=== PATIENT | male | born 1945 | race Caucasian/White ===

== ENCOUNTER 2022-02-20 14:19 | Emergency (ER) | payer MEDICARE, OTHER, SELFPAY ==
[2022-02-20 14:34] VITALS: BP 99/64; PULSE 76; RESP 18; TEMP 36.4; O2SAT 98; BMI 22.4
--- NOTE | 2022-02-20 14:47 | CRLHL7_ITS ---
For Patients: As a result of the Century Cures Act, medical imaging exams and procedure reports are released immediately into your electronic medical record. You may view this report before your referring provider. If you have questions, please contact your health care provider. INDICATION: Painful reddened left abdominal lump. TECHNIQUE: Hammer-scale and color-flow Doppler ultrasound examination of the left abdominal lump. COMPARISON: None. FINDINGS: A tubular structure in the region of the left abdominal lump is demonstrated. This has an overall length of roughly 5 cm and measures up to roughly 1 cm in diameter. A section of this structure medially demonstrates flow on color flow Doppler examination, indicating a venous structure. The lateral section demonstrates no flow and is suspect an acutely thrombosed component. IMPRESSION: Apparent venous structure in the abdominal wall with thrombus. Question this patient has poor venous hypertension with abdominal wall venous shunting. Dictated by Sinan Cardenas MD @ 02/20/2022 4:23:52 PM (Electronically Signed)
--- NOTE | 2022-02-20 15:22 | ED_ITS ---
HPI - General Adult General Chief complaint: Skin/Abscess/Foreign Body Stated complaint: Red madhu on stomach that causes pain Time Seen by Provider: 02/20/22 14:24 Source: patient Mode of arrival: ambulatory Limitations: no limitations History of Present Illness HPI narrative: 77-year-old male coming in today concerned about a lesion on his abdominal wall. He noticed it there about 1-2 weeks ago. In the last couple days it has been hurting him when he touches it. He denies any systemic symptoms. He denies any trauma to the abdominal wall. Past medical history is significant for paroxysmal atrial fibrillation, anxiety, restless leg syndrome, normal sick anemia. Past surgical history includes AAA repair, cholecystectomy, appendectomy cardiac ablation for atrial fibrillation, back surgery. Related Data Home Medications Medication Instructions Recorded Confirmed dofetilide 250 mcg capsule mcg 02/20/22 ferrous gluconate 324 mg (38 mg mg 02/20/22 iron) tablet furosemide 40 mg tablet mg 02/20/22 metoprolol succinate 25 mg mg PO 02/20/22 tablet,extended release 24 hr metoprolol tartrate 25 mg tablet mg 02/20/22 mirtazapine 7.5 mg tablet mg 02/20/22 pregabalin 100 mg capsule mg 02/20/22 pregabalin 25 mg capsule mg 02/20/22 sennosides 8.6 mg tablet (senna) mg 02/20/22 sumatriptan succinate 50 mg tablet mg PO 02/20/22 tramadol 50 mg tablet mg 02/20/22 warfarin 1 mg tablet mg 02/20/22 Allergies Allergy/AdvReac Type Severity Reaction Status Date / Time dronedarone [From Multaq] Allergy Verified 02/20/22 17:21 meperidine [From Demerol] Allergy Verified 02/20/22 17:21 morphine Allergy Verified 02/20/22 17:21 promethazine [From Phenergan] Allergy Verified 02/20/22 17:21 Review of Systems Status of ROS: Reports: 10 or more systems reviewed and unremarkable except as noted in History and below PFSH PFS Social History Smoking Status: Never smoker Do you use any of these nicotine containing products: None Second hand tobacco smoke exposure: No How often do you have a drink containing alcohol: never How often do you have six or more drinks on one occasion: Never AUDIT-C Alcohol total score: 0 Non-prescribed substance use: denies use service: No Exam Narrative: Exam Narrative: Thin, well-developed elderly patient in no acute distress. Alert and oriented. Answers questions appropriately. Mood and affect are appropriate. Thoughts are goal oriented and rational. No tangential or magical thinking noted. Patient speaks in full sentences without needing to catch their breath. HEENT: Normocephalic atraumatic. Pupils are equally round reactive to light. Extraocular muscles are intact. Conjunctivae are moist without any icterus noted. Abdomen: Soft and nontender nondistended with normal bowel sounds. No guarding or rebound. Patient has a small area of erythema on the anterior abdominal wall without any broken skin. Underneath it he has a area of induration and firmness that is about the size of a golf ball, slightly smaller. This area is tender to palpation. Extremities: Bilateral lower extremities are without edema. Normal DP and PT pulses. Skin: Well perfused without any obvious rashes. Const: Vital Signs, click to edit/add: Vital Signs - 24 hr 02/20/22 14:34 02/20/22 16:51 Temperature 97.5 F L Pulse Rate [Right Pulse Oximeter] 76 75 Respiratory Rate 18 18 Blood Pressure [Ri ght Upper Arm] 99/64 108/69 Pulse Oximetry 98 97 Oxygen Delivery Me thod Room Air Room Air Course Course Hospital Course: Proceeded with an ultrasound of the area in question, radiologic over-read commented on a potential venous structure and blood clot. Because of this we added some lab work which was unremarkable and proceed with an chest, abdominal and pelvis CT scan which showed Epicardial pacer leads leading to a small probable area of abscess. I did consult with our surgeon, , who recommended oral antibiotics and follow up with a cardio vascular surgeon. Vital Signs Vital signs: Initial Vital Signs Temperature 97.5 F L 02/20/22 14:34 Temperature Source Temporal Artery Scan 02/20/22 14:34 Pulse Rate 76 02/20/22 14:34 Respiratory Rate 18 02/20/22 14:34 Blood Pressure 99/64 02/20/22 14:34 Blood Pressure Mean 75 02/20/22 14:34 Blood Pressure Position Sitting 02/20/22 14:34 Pulse Oximetry 98 02/20/22 14:34 Oxygen Delivery Method 02/20/22 14:34 Vital Signs Temperature 97.5 F L 02/20/22 14:34 Pulse Rate 76 02/20/22 14:34 Respiratory Rate 18 02/20/22 14:34 Blood Pressure 99/64 02/20/22 14:34 Pulse Oximetry 98 02/20/22 14:34 Oxygen Delivery Method 02/20/22 14:34 Temperature 97.5 F L 02/20/22 14:34 Pulse Rate 75 02/20/22 16:51 Respiratory Rate 18 02/20/22 16:51 Blood Pressure 108/69 02/20/22 16:51 Pulse Oximetry 97 02/20/22 16:51 Oxygen Delivery Method 02/20/22 16:51 Medical Decision Making MDM Narrative Medical decision making narrative: Abdominal wall abscess, epicardial pacer leads still in placed postoperatively. Patient will be placed on Augmentin. Recommend follow-up with his cardiovascular surgeon. Medical Records Medical records reviewed: Yes I reviewed the patient's medical records Lab Data Lab results reviewed: Yes I reviewed the patient's lab results Labs: Lab Results 02/20/22 02/20/22 02/20/22 Range/Units 16:47 16:47 16:47 WBC 5.76 (4.50-11.00) K/uL RBC 4.48 (4.30-5.90) m/uL Hgb 13.4 L (13.5-17.5) gm/dL Hct 41.6 (37.0-53.0) % MCV 93 (80-100) fL MCH 30 (26-34) pg MCHC 32 (32-36) gm/dL RDW Coeff of Phyllis 13.0 (11.5-15.5) % Plt Count 184 (140-440) K/uL Neut % (Auto) 69.0 (42.0-72.0) % Lymph % (Auto) 21.0 (20-44) % Hopkins % (Auto) 7.6 (0.0-11.0) % Eos % (Auto) 2.1 (0.0-7.0) % Baso % (Auto) 0.3 (0.0-3.0) % Neut # (Auto) 3.97 (1.7-7.0) K/uL Lymph # (Auto) 1.21 (0.90-2.90) K/uL Hopkins # (Auto) 0.40 (0.00-0.90) K/UL Eos # (Auto) 0.12 (0.00-0.50) K/uL Baso # (Auto) 0.02 (0.00-0.30) K/uL Abs Immat Gran (auto) 0.00 (0.00-0.30) K/uL INR (0.91-1.10) D-Dimer Quant (PE/DVT) 0.49 (0.00-0.50) ug/ml Sodium 141 (135-149) mmol/L Potassium 4.2 (3.6-5.1) mmol/L Chloride 105 (96-114) mmol/L Carbon Dioxide 29 (20-32) mmol/L BUN 29 (7-30) mg/dL Creatinine 0.7 (0.5-1.5) mg/dL Estimated Creat Clear 66.53 Estimated GFR 95 ml/min Glucose 92 (60-115) mg/dL Calcium 9.1 (8.4-10.6) mg/dL Total Bilirubin 0.9 (0.1-1.5) mg/dL Direct Bilirubin 0.1 (0.0-0.5) mg/dL AST 30 (12-35) U/L ALT 17 (4-50) U/L Alkaline Phosphatase 76 (40-150) U/L C-Reactive Protein (0.5-1.0) mg/dL Total Protein 8.1 (6.0-8.3) g/dL Albumin 4.3 (3.3-5.0) g/dL 02/20/22 02/20/22 Range/Units 16:47 16:47 WBC (4.50-11.00) K/uL RBC (4.30-5.90) m/uL Hgb (13.5-17.5) gm/dL Hct (37.0-53.0) % MCV (80-100) fL MCH (26-34) pg MCHC (32-36) gm/dL RDW Coeff of Phyllis (11.5-15.5) % Plt Count (140-440) K/uL Neut % (Auto) (42.0-72.0) % Lymph % (Auto) (20-44) % Hopkins % (Auto) (0.0-11.0) % Eos % (Auto) (0.0-7.0) % Baso % (Auto) (0.0-3.0) % Neut # (Auto) (1.7-7.0) K/uL Lymph # (Auto) (0.90-2.90) K/uL Hopkins # (Auto) (0.00-0.90) K/UL Eos # (Auto) (0.00-0.50) K/uL Baso # (Auto) (0.00-0.30) K/uL Abs Immat Gran (auto) (0.00-0.30) K/uL INR 1.96 H (0.91-1.10) D-Dimer Quant (PE/DVT) (0.00-0.50) ug/ml Sodium (135-149) mmol/L Potassium (3.6-5.1) mmol/L Chloride (96-114) mmol/L Carbon Dioxide (20-32) mmol/L BUN (7-30) mg/dL Creatinine (0.5-1.5) mg/dL Estimated Creat Clear Estimated GFR ml/min Glucose (60-115) mg/dL Calcium (8.4-10.6) mg/dL Total Bilirubin (0.1-1.5) mg/dL Direct Bilirubin (0.0-0.5) mg/dL AST (12-35) U/L ALT (4-50) U/L Alkaline Phosphatase (40-150) U/L C-Reactive Protein 0.6 (0.5-1.0) mg/dL Total Protein (6.0-8.3) g/dL Albumin (3.3-5.0) g/dL Imaging Data CT Chest/Ab/Pelvis: Attestation: I have reviewed the pertinent imaging results. Radiologist's impression: Volumetric multidetector CT images of the chest, abdomen, and pelvis were obtained after the administration of intravenous contrast. 95 cc Isovue 370 low osmolar intravenous contrast Comparison: Limited abdominal ultrasound February 20, 2022 FINDINGS: CHEST The thoracic inlet is unremarkable. The thyroid gland is within normal limits. The thoracic aorta is nonaneurysmal. There is demonstration of epicardial pacer leads likely temporary pacer leads status post prior median sternotomy within the inferior epicardial space extending to the left upper quadrant subcutaneous soft tissues corresponding to the area of palpable concern with likely a small inflammatory phlegmon or abscess near the terminus of the wires for. There is no definite evidence of rim enhancing pericardial fluid to suggest pericarditis. There is again effacement of the cardiac structures secondary to a narrowed AP thoracic diameter. There is no filling defect to suggest pulmonary embolus. There is no mediastinal, hilar, or axillary adenopathy. There is mild central bronchial thickening with [id number] paper parenchymal scarring and pleural based calcifications seen in the right greater than left lung apices. There is dependent basilar atelectasis and parenchymal scarring again appreciated within the peripheral right lower lobe mildly increased from comparison. The thoracic osseus structures are intact without fracture, lytic, or blastic lesion. The thoracic vertebral body heights are grossly stable from comparison with moderate degenerative disc disease and endplate Schmorl`s defects. There is no significant spondylolisthesis or displaced fracture. ABDOMEN AND PELVIS The liver is normal in attenuation and size. The portal vein is patent. The spleen is normal in attenuation and size. There is prior cholecystectomy. There is no intrahepatic or common ductal dilatation. There is moderate chronic gastritis change. The pancreas is normal in enhancement without significant atrophy. The adrenal glands are unremarkable without evidence of adenoma. Renal parenchymal defects of the bilateral kidneys are appreciated commensurate with sequela of prior renal parenchymal injury. Cystic changes of the kidneys are seen. Nonobstructive calculi within the right collecting system. There is a moderate to severe diffuse amount of intracolonic stool. There is minimal distal colonic diverticulosis. There is prior appendectomy. The abdominal aorta is nonaneurysmal with moderate atherosclerotic calcification and tortuosity.. The remaining solid pelvic viscera are otherwise grossly unremarkable. There is no pathologically enlarged epigastric, mesenteric, retroperitoneal, or pelvic sidewall lymph node. The anterior abdominal wall is grossly intact without significant hernias. There is no free air or free fluid. Moderate degenerative changes of the bilateral hips and sacroiliac joints are appreciated. There is moderate to severe degenerative disc disease and moderate dextroscoliotic deformity of the AP alignment. Impression: 1. Demonstration of discontinuous epicardial pacer leads, likely temporary pacer leads, from previous median sternotomy and aortic surgery corresponding to the area of palpable concern with demonstration of likely a small abscess within the subcutaneous tissues along the cut ends of the leads seen on comparison ultrasound. This area is best appreciated on series 10, image 31 measuring 1.5 centimeters. No evidence of pericardial abscess or fluid collection tracking along the path of the leads. 2. Moderate to severe stool seen throughout the colon commensurate with constipation changes. Nephrolithiasis. Chronic gastritis changes. Prior cholecystectomy with reservoir changes of the bile ducts. 3. Otherwise, no acute intra-abdominal abnormality is appreciated. Moderate chronic interstitial changes within the lungs with minimal bibasilar atelectasis and parenchymal scar. No evidence of pulmonary embolus. US - abdomen: Attestation: I have reviewed the pertinent imaging results. Radiologist's impression: TECHNIQUE: Hammer-scale and color-flow Doppler ultrasound examination of the left abdominal lump. COMPARISON: None. FINDINGS: A tubular structure in the region of the left abdominal lump is demonstrated. This has an overall length of roughly 5 cm and measures up to roughly 1 cm in diameter. A section of this structure medially demonstrates flow on color flow Doppler examination, indicating a venous structure. The lateral section demonstrates no flow and is suspect an acutely thrombosed component. IMPRESSION: Apparent venous structure in the abdominal wall with thrombus. Question this patient has poor venous hypertension with abdominal wall venous shunting. Discharge Plan Discharge Clinical Impression: Abdominal wall abscess Patient Disposition: Home, Self-Care Condition: Stable Additional Instructions: Take all antibiotics as prescribed. Okay to use Tylenol as needed for discomfort. You will need to follow-up with your cardiovascular surgeon to discuss your epicardial leads which are still in place and appear to be the cause of the infection. Antibiotic sent to [facility]. Prescriptions: No Action furosemide 40 mg tablet Label Comments: TAKE 1 TABLET (40 MG) BY MOUTH EVERY MORNING. sennosides [senna] 8.6 mg tablet Label Comments: TAKE 1 TABLET BY MOUTH 2 TIMES DAILY IF NEEDED FOR CONSTIPATION. dofetilide 250 mcg capsule sumatriptan succinate 50 mg tablet PO Label Comments: TAKE 1 TABLET (50 MG) BY MOUTH EVERY 2 HOURS IF NEEDED FOR MIGRAINE. GIVE AT MINIMUM 2HRS APART. MAX DOSE: 200MG PER 24HRS. tramadol 50 mg tablet Label Comments: take 1 tab qhs as needed for RLS rescue therapy. Not to exceed more than 2 nights/week metoprolol succinate 25 mg tablet extended release 24 hr PO warfarin 1 mg tablet Label Comments: TAKE BY MOUTH 2 MG (1 MG X 2) EVERY SUN; 3 MG (1 MG X 3) ALL OTHER DAYS OR DIRECTED metoprolol tartrate 25 mg tablet mirtazapine 7.5 mg tablet pregabalin 25 mg capsule Label Comments: TAKE 1 CAP 3 TIMES PER DAILY. INCREASE TO 2 CAPS NIGHTTIME DOSING IF NEEDED AFTER 1 WEEK (TOTAL DOSING 125 MG AM AND AFTERNOON 150MG AT BEDTIME) pregabalin 100 mg capsule Label Comments: TAKE 1 CAPSULE BY MOUTH THREE TIMES A DAY ferrous gluconate 324 mg (38 mg iron) tablet Label Comments: TAKE 1 TABLET BY MOUTH ONCE DAILY WITH A MEAL. Follow Up/Referrals: Kiersten Fitch MD [Primary Care Provider] - Stand Alone Forms: [facility] Inst[facility]
--- NOTE | 2022-02-20 16:44 | CRLHL7_ITS ---
For Patients: As a result of the Cures Act, medical imaging exams and procedure reports are released immediately into your electronic medical record. You may view this report before your referring provider. If you have questions, please contact your health care provider. Indication: Pulsatile abdominal mass, history of aortic surgery March 22, thrombus seen on abdominal wall ultrasound Technique: Volumetric multidetector CT images of the chest, abdomen, and pelvis were obtained after the administration of intravenous contrast. 95 cc Isovue 370 low osmolar intravenous contrast Comparison: Limited abdominal ultrasound February 20, 2022 FINDINGS: CHEST The thoracic inlet is unremarkable. The thyroid gland is within normal limits. The thoracic aorta is nonaneurysmal. There is demonstration of epicardial pacer leads likely temporary pacer leads status post prior median sternotomy within the inferior epicardial space extending to the left upper quadrant subcutaneous soft tissues corresponding to the area of palpable concern with likely a small inflammatory phlegmon or abscess near the terminus of the wires for. There is no definite evidence of rim enhancing pericardial fluid to suggest pericarditis. There is again effacement of the cardiac structures secondary to a narrowed AP thoracic diameter. There is no filling defect to suggest pulmonary embolus. There is no mediastinal, hilar, or axillary adenopathy. There is mild central bronchial thickening with [id number] paper parenchymal scarring and pleural based calcifications seen in the right greater than left lung apices. There is dependent basilar atelectasis and parenchymal scarring again appreciated within the peripheral right lower lobe mildly increased from comparison. The thoracic osseus structures are intact without fracture, lytic, or blastic lesion. The thoracic vertebral body heights are grossly stable from comparison with moderate degenerative disc disease and endplate Schmorl`s defects. There is no significant spondylolisthesis or displaced fracture. ABDOMEN AND PELVIS The liver is normal in attenuation and size. The portal vein is patent. The spleen is normal in attenuation and size. There is prior cholecystectomy. There is no intrahepatic or common ductal dilatation. There is moderate chronic gastritis change. The pancreas is normal in enhancement without significant atrophy. The adrenal glands are unremarkable without evidence of adenoma. Renal parenchymal defects of the bilateral kidneys are appreciated commensurate with sequela of prior renal parenchymal injury. Cystic changes of the kidneys are seen. Nonobstructive calculi within the right collecting system. There is a moderate to severe diffuse amount of intracolonic stool. There is minimal distal colonic diverticulosis. There is prior appendectomy. The abdominal aorta is nonaneurysmal with moderate atherosclerotic calcification and tortuosity.. The remaining solid pelvic viscera are otherwise grossly unremarkable. There is no pathologically enlarged epigastric, mesenteric, retroperitoneal, or pelvic sidewall lymph node. The anterior abdominal wall is grossly intact without significant hernias. There is no free air or free fluid. Moderate degenerative changes of the bilateral hips and sacroiliac joints are appreciated. There is moderate to severe degenerative disc disease and moderate dextroscoliotic deformity of the AP alignment. Impression: 1. Demonstration of discontinuous epicardial pacer leads, likely temporary pacer leads, from previous median sternotomy and aortic surgery corresponding to the area of palpable concern with demonstration of likely a small abscess within the subcutaneous tissues along the cut ends of the leads seen on comparison ultrasound. This area is best appreciated on series 10, image 31 measuring 1.5 centimeters. No evidence of pericardial abscess or fluid collection tracking along the path of the leads. 2. Moderate to severe stool seen throughout the colon commensurate with constipation changes. Nephrolithiasis. Chronic gastritis changes. Prior cholecystectomy with reservoir changes of the bile ducts. 3. Otherwise, no acute intra-abdominal abnormality is appreciated. Moderate chronic interstitial changes within the lungs with minimal bibasilar atelectasis and parenchymal scar. No evidence of pulmonary embolus. Please note that all CT scans at this facility use dose modulation, iterative reconstruction, and/or weight-based dosing when appropriate to reduce radiation dose to as low as reasonably achievable. Dictated by Derek Zambrano MD @ 02/20/2022 6:03:29 PM (Electronically Signed)
[2022-02-20 16:51] VITALS: BP 108/69; PULSE 75; RESP 18; O2SAT 97
[2022-02-20 16:52] LABS: Basophils Absolute Auto 0.02 K/uL (0.00-0.30); Basophils Percent Auto 0.3 % (0.0-3.0); Eosinophils Absolute Auto 0.12 K/uL (0.00-0.50); Eosinophils Percent Auto 2.1 % (0.0-7.0); Hematocrit 41.6 % (37.0-53.0); Hemoglobin* 13.4 gm/dL (13.5-17.5); Lymphocytes Absolute Auto 1.21 K/uL (0.90-2.90); Mean Corpuscular HGB Conc 32 gm/dL (32-36); Mean Corpuscular Hemoglobin 30 pg (26-34); Mean Corpuscular Volume 93 fL (80-100); Monocytes Percent Auto 7.6 % (0.0-11.0); Neutrophils Absolute Auto 3.97 K/uL (1.7-7.0); Platelet Count* 184 K/uL (140-440); Red Blood Count 4.48 m/uL (4.30-5.90); White Blood Count* 5.76 K/uL (4.50-11.00)
[2022-02-20 16:55] LABS: Slide Review Reflex No
[2022-02-20 17:05] LABS: Albumin* 4.3 g/dL (3.3-5.0); Chloride* 105 mmol/L (96-114)
[2022-02-20 17:06] LABS: Potassium* 4.2 mmol/L (3.6-5.1); Sodium* 141 mmol/L (135-149)
[2022-02-20 17:08] LABS: Alkaline Phosphatase* 76 U/L (40-150); Aspartate Amino Transferase* 30 U/L (12-35); Bilirubin Direct* 0.1 mg/dL (0.0-0.5); Bilirubin Total* 0.9 mg/dL (0.1-1.5); Blood Urea Nitrogen* 29 mg/dL (7-30); Carbon Dioxide* 29 mmol/L (20-32); Creatinine* 0.7 mg/dL (0.5-1.5); Est. Creatinine Clearance* 66.53; Estimated Glomerular Filt Rate 95 ml/min; Total Protein* 8.1 g/dL (6.0-8.3)
[2022-02-20 17:09] LABS: Alanine Aminotransferase* 17 U/L (4-50); Calcium* 9.1 mg/dL (8.4-10.6); Glucose* 92 mg/dL (60-115)
[2022-02-20 17:12] LABS: INR 1.96 (0.91-1.10); Prothrombin Time 22.7 Seconds
[2022-02-20 17:13] LABS: C Reactive Protein* 0.6 mg/dL (0.5-1.0); D Dimer Quantitative* 0.49 ug/ml (0.00-0.50)
== END 2022-02-20 18:51 | disposition home or self-care (01) ==
PROVIDERS: Emergency Provider Family Medicine; PCP Family Medicine
DX: L02.211 Cutaneous abscess of abdominal wall (principal)
CPT/HCPCS: 36415; 71260; 74177; 76705; 80048; 80076; 85025; 85379; 85610; 86140; 99284; 99285; Q9967

== ENCOUNTER 2022-03-05 02:02 | Emergency (ER) | payer MEDICARE, OTHER, SELFPAY ==
[2022-03-05 02:14] VITALS: BP 103/66; PULSE 81; RESP 16; TEMP 37.2; O2SAT 99; BMI 23.1
--- NOTE | 2022-03-05 02:34 | ED.GENADULT ---
HPI - General Adult General Date Seen: 03/05/22 Chief complaint: Laceration/Wound Stated complaint: Abdominal pain, skin wound, possibly infected Time Seen by Provider: 03/05/22 02:23 Source: patient Mode of arrival: ambulatory Limitations: no limitations History of Present Illness HPI narrative: Patient is a 77-year-old male with scheduled to have removal of pacemaker leads next week at [facility]. One of these leads has led to the formation of an abdominal wall abscess. He is on Augmentin and has had no fevers or chills. He has had worsening pain and called the triage nurse who told him to come to the emergency department. The area is more tender than it was a couple of days ago but it is not swollen. He describes ?electric shocks ?. He can knowledge is that he is anxious the might before he has the surgery because the surgeon told him that Quoc Glover bled to when he had this same procedure done. We discussed that if he had worsening swelling, drainage, fever that I would be concerned but he demonstrates no signs of worsening infection. He is only taking Tylenol for pain. No chest pain or shortness of breath. Related Data Home Medications Medication Instructions Recorded Confirmed dofetilide 250 mcg capsule mcg 02/20/22 ferrous gluconate 324 mg (38 mg mg 02/20/22 iron) tablet furosemide 40 mg tablet mg 02/20/22 metoprolol succinate 25 mg mg PO 02/20/22 tablet,extended release 24 hr metoprolol tartrate 25 mg tablet mg 02/20/22 mirtazapine 7.5 mg tablet mg 02/20/22 pregabalin 100 mg capsule mg 02/20/22 pregabalin 25 mg capsule mg 02/20/22 sennosides 8.6 mg tablet (senna) mg 02/20/22 sumatriptan succinate 50 mg tablet mg PO 02/20/22 tramadol 50 mg tablet mg 02/20/22 warfarin 1 mg tablet mg 02/20/22 Previous Rx's Medication Instructions Recorded amoxicillin 875 mg-potassium 1 tab PO BID #10 tabs 03/05/22 clavulanate 125 mg tablet oxycodone-acetaminophen 5 mg-325 1 - 2 tab PO Q4-6H PRN pain #14 03/05/22 mg tablet (Endocet) tabs Allergies Allergy/AdvReac Type Severity Reaction Status Date / Time Phenothiazines Allergy Severe Angioedema Verified 03/05/22 02:30 dronedarone [From Multaq] Allergy Verified 03/05/22 02:30 meperidine [From Demerol] Allergy Verified 03/05/22 02:30 morphine Allergy Verified 03/05/22 02:30 promethazine [From Phenergan] Allergy Verified 03/05/22 02:30 Review of Systems Status of ROS: Reports: 10 or more systems reviewed and unremarkable except as noted in History and below [facility] Medical History (Updated 03/05/22 @ 02:51 by Rashard Garcia MD) Anemia Anxiety Degenerative joint disease Hypertension Paroxysmal atrial fibrillation Restless leg Surgical History (Updated 03/05/22 @ 02:28 by Jean Pierre Rosales RN) History of appendectomy History of arthroscopic knee surgery History of back surgery History of cardiac radiofrequency ablation History of cholecystectomy S/P AAA repair Social History Smoking Status: Never smoker Do you use any of these nicotine containing products: None Second hand tobacco smoke exposure: No How often do you have a drink containing alcohol: never How often do you have six or more drinks on one occasion: Never AUDIT-C Alcohol total score: 0 Non-prescribed substance use: denies use service: No Exam Narrative: Exam Narrative: Subjective: The patient is in today [] Past Medical History, Past Surgical History, Medications, Allergies, Family History, Social History are reviewed and updated. Objective: Vitals noted. Conjunctiva clear. Neck is supple without adenopathy. Lungs are clear to auscultation in all newman. Heart is regular rate and rhythm without murmur. Abdomen is soft with normal bowel sounds and no organomegaly. No pitting peripheral edema. He has some dried debris over his mid abdomen. There is no surrounding redness or induration. The area is tender to the touch. There is no purulence expressible. No lymphangitic streaking. Const: Vital Signs, click to edit/add: Vital Signs - 24 hr 03/05/22 02:14 Temperature 98.9 F Pulse Rate [Left P ulse Oximeter] 81 Respiratory Rate 16 Blood Pressure [Le ft Upper Arm] 103/66 Pulse Oximetry 99 Oxygen Delivery Me thod Room Air Course Course Hospital Course: Patient was seen and examined. No indication for any diagnostic testing. He was reassured that he will not suffer overwhelming infection between now and his surgery in a couple of days. He is offered pain medication. He is worried that he might run out of his antibiotic and I did send in a few extra days of that as well. Vital Signs Vital signs: Initial Vital Signs Temperature 98.9 F 03/05/22 02:14 Temperature Source Temporal Artery Scan 03/05/22 02:14 Pulse Rate 81 03/05/22 02:14 Pulse Rhythm 03/05/22 02:14 Respiratory Rate 16 03/05/22 02:14 Blood Pressure 103/66 03/05/22 02:14 Blood Pressure Mean 78 03/05/22 02:14 Blood Pressure Position Sitting 03/05/22 02:14 Pulse Oximetry 99 03/05/22 02:14 Oxygen Delivery Method 03/05/22 02:14 Vital Signs Temperature 98.9 F 03/05/22 02:14 Pulse Rate 81 03/05/22 02:14 Respiratory Rate 16 03/05/22 02:14 Blood Pressure 103/66 03/05/22 02:14 Pulse Oximetry 99 03/05/22 02:14 Oxygen Delivery Method 03/05/22 02:14 Temperature 98.9 F 03/05/22 02:14 Pulse Rate 81 03/05/22 02:14 Respiratory Rate 16 03/05/22 02:14 Blood Pressure 103/66 03/05/22 02:14 Pulse Oximetry 99 03/05/22 02:14 Oxygen Delivery Method 03/05/22 02:14 Discharge Plan Discharge Clinical Impression: Abdominal wall abscess Patient Disposition: Home, Self-Care Condition: Stable Additional Instructions: Continue Augmentin twice a day until surgery. Hot packs to the area. Percocet 1-2 every 4-6 hours as needed for pain. Prescriptions: New amoxicillin-pot clavulanate 875-125 mg tablet 1 tab PO BID Qty: 10 0RF oxycodone-acetaminophen [Endocet] 5-325 mg tablet 1 - 2 tab PO Q4-6H PRN (Reason: pain) Qty: 14 0RF No Action furosemide 40 mg tablet Label Comments: TAKE 1 TABLET (40 MG) BY MOUTH EVERY MORNING. sennosides [senna] 8.6 mg tablet Label Comments: TAKE 1 TABLET BY MOUTH 2 TIMES DAILY IF NEEDED FOR CONSTIPATION. dofetilide 250 mcg capsule sumatriptan succinate 50 mg tablet PO Label Comments: TAKE 1 TABLET (50 MG) BY MOUTH EVERY 2 HOURS IF NEEDED FOR MIGRAINE. GIVE AT MINIMUM 2HRS APART. MAX DOSE: 200MG PER 24HRS. tramadol 50 mg tablet Label Comments: take 1 tab qhs as needed for RLS rescue therapy. Not to exceed more than 2 nights/week metoprolol succinate 25 mg tablet extended release 24 hr PO warfarin 1 mg tablet Label Comments: TAKE BY MOUTH 2 MG (1 MG X 2) EVERY SUN; 3 MG (1 MG X 3) ALL OTHER DAYS OR DIRECTED metoprolol tartrate 25 mg tablet mirtazapine 7.5 mg tablet pregabalin 25 mg capsule Label Comments: TAKE 1 CAP 3 TIMES PER DAILY. INCREASE TO 2 CAPS NIGHTTIME DOSING IF NEEDED AFTER 1 WEEK (TOTAL DOSING 125 MG AM AND AFTERNOON 150MG AT BEDTIME) pregabalin 100 mg capsule Label Comments: TAKE 1 CAPSULE BY MOUTH THREE TIMES A DAY ferrous gluconate 324 mg (38 mg iron) tablet Label Comments: TAKE 1 TABLET BY MOUTH ONCE DAILY WITH A MEAL. Follow Up/Referrals: Kiersten Fitch MD [Primary Care Provider] - Stand Alone Forms: [facility] Info Inst[facility]
--- OUTSIDE RECORDS SUMMARY | 2022-03-05 03:05 | XMS_ITS | Encounter Summary ---
:1945 Author Organization [facility] Address [address] [place] [address] Care Team Providers Name Role Phone Unavailable Primary Care Provider Unavailable Encounter Details Date Type Department Care Team Description 11/28/2000 Hospital Encounter HX [facility] INTERNMED Provider, Fl vivienne Social History Tobacco Use Types Packs/Day Years Used Date Smoking Tobacco: Never Assessed Alcohol Habits Answer Date Recorded How often do you have a drink containing alcohol? Never 08/31/2021 How many drinks containing alcohol do you have on a typical Not asked day when you are drinking? How often do you have six or more drinks on one occasion? No t asked Social Isolation Answer Date Recorded In a typical week, how many times do you More than three scot es a week 08/31/2021 talk on the phone with family, friends, or neighbors? How often do you get together with friends Once a week 08/31/2021 or relatives? How often do you attend advent or Patient refused 2021 yarsanism services? Do you belong to any clubs or No 08/31/2021 organizations such as advent groups, unions, fraternal or athletic groups, or school groups? How often do you attend meetings of the Never 08/31/2021 clubs or organizations you belong to? Are you now , , , 08/31/2021 , never or living with a partner? Physical Activity Answer Date Recorded On average, how many days per week do you engage in moderate to 5 days 08/31/2021 strenuous exercise (like walking fast, running, jogging, dancing, swimming, biking, or other activities that cause a light or heavy sweat)? On average, how many minutes do you engage in exercise at th is 20 min 08/31/2021 level? Stress Answer Date Recorded Do you feel stress - tense, restless, nervous, or Only a lit tle 08/31/2021 anxious, or unable to sleep at night because your mind is troubled all the time - these days? Financial Resource Strain Answer Date Recorded How hard is it for you to pay for the very basics like food, Very hard 08/31/2021 housing, medical care, and heating? Intimate Partner Violence Answer Date Recorded Within the last year, have you been afraid of your partner o r No 08/31/2021 ex-partner? Within the last year, have you been humiliated or emotionall y No 08/31/2021 abused in other ways by your partner or ex-partner? Within the last year, have you been kicked, hit, slapped, or No 08/31/2021 otherwise physically hurt by your partner or ex-partner? Within the last year, have you been raped or forced to have any No 08/31/2021 kind of sexual activity by your partner or ex-partner? Food Insecurity Answer Date Recorded Within the past 12 months, you worried that your food Someti mes true 08/31/2021 would run out before you got money to buy more. Within the past 12 months, the food you bought just Sometime s true 08/31/2021 didn't last and you didn't have money to get more. Transportation Needs Answer Date Recorded In the past 12 months, has lack of transportation kept you f rom No 08/31/2021 medical appointments or from getting medications? In the past 12 months, has lack of transportation kept you f rom No 08/31/2021 meetings, work, or getting things needed for daily living? Housing Stability Answer Date Recorded In the last 12 months, was there a time when you were Patien t refused 08/31/2021 not able to pay the mortgage or rent on time? In the last 12 months, how many places have you lived? [id number] 08/31/2021 In the last 12 months, was there a time when you did No 08/31/2021 not [address] to sleep or slept in a long term (including now)? Sex Assigned at Date Recorded Not on file documented as of this encounter Plan of Treatment Not on filedocumented as of this encounter Visit Diagnoses Not on filedocumented in this encounter
--- OUTSIDE RECORDS SUMMARY | 2022-03-05 03:05 | XMS_ITS | Clinical Summary ---
:1945 Author Organization [facility] Address [address] [place] [address] Care Team Providers Name Role Phone Elsewhere, Pcp Primary Care Provider Unavailable Source Comments Patient records contain information from all sites at [facility]. For routine questions regarding patient records, call [phone] during business hours, M-F 8:00 AM - 5:00 PM Central Time. Record requests for emergency care only can be directed to [phone] at any time.[facility] Allergies Active Allergy Reactions Severity Noted Date Comments Dronedarone Other (see comments), 04/29/2009 SHORT OF BREATH, Shortness of breath NERVOUS, TWITCHY Meperidine Angioedema, Shortness of High 07/08/2006 Fac ial swelling, after breath, Edema, hypo with Phe nergan Palpitations GIVEN WITH PHEN ERGAN Morphine GI intolerance, Nausea And 06/20/2007 V OMITING WITH ANY Vomiting MOVEMENT Phenothiazines Angioedema, Shortness of High 07/08/2006 F acial swelling, after breath, Edema, hypo with Dem rayne Palpitations GIVEN WITH EDWIGE ROL Pollen Extracts Other (see comments) 04/01/2016 Sertraline Nausea Only 03/07/2017 Medications Medication Sig Dispensed Refills Start Date End Date Status digestive enzymes Take 1 capsule 0 Active capsule by mouth. acetaminophen (TYLENOL) Take 500-1,000 0 Active 500 mg tablet mg by mouth. ascorbic acid, vitamin Take 1 tablet by 0 04/17/2020 Active C, (VITAMIN C) 1,000 mg mouth daily. tablet aspirin 81 mg chewable Chew 81 mg. 0 04/15/2021 Active tablet cholecalciferol Take 2 capsules 0 11/17/2011 Active (VITAMIN D3) 50 mcg by mouth daily. (2,000 Unit) capsule dofetilide (TIKOSYN) 0 08/26/2021 Active 250 mcg capsule furosemide (LASIX) 40 Take 40 mg by 0 07/13/2021 Active mg tablet mouth 2 (two) times a day. metoprolol succinate Take 50 mg by 0 06/11/2021 Active (TOPROL-XL) 50 mg 24 hr mouth every tablet evening. sennosides (SENOKOT) Take by mouth. 0 08/03/2021 Active 8.6 mg tablet SUMAtriptan (IMITREX) Take 100 mg by 0 Active 50 mg tablet mouth at bedtime as needed. warfarin (COUMADIN) 1 TAKE 2 TABLETS 0 08/03/2021 Active mg tablet BY MOUTH TUESDAY, TUESDAY, TUESDAY AND 1 TABLET ALL OTHER DAYS OF THE WEEK. zinc gluconate 100 mg Take 50 mg by 0 12/22/2020 Active tablet mouth. gabapentin (NEURONTIN) Take 600 qam, 405 tablet 1 08/31/2021 Active 600 mg tablet 600 qnoon and 900 qhs x 3 days, then 900 qam, 600 qnoon and 900 qhs x 3 days, then 900 mg tid Active Problems No known active problems Immunizations Name Administration Dates Next Due Influenza TIV (IM) 04/05/2013 Influenza, Injectable, Quadrivalent 01/16/2017 Influenza, Seasonal, Injectable 04/05/2013 Influenza, Unspecified 02/16/2018, 04/05/2013 PCV13 01/20/2015 PPSV23 04/05/2013, 06/02/2012 Td (Adult), adsorbed 05/06/2004 Td, (Adult) Unspecified 01/30/2005 Tdap 06/16/2018 influenza high dose (65 years or 02/16/2018, 01/27/2017, , older) (PF) 01/30/2014 influenza vaccine QV(FLUBLOK) (18 01/24/2020 years or older) (PF) influenza vaccine quad 02/26/2019, 01/23/2016 (FLUZONE/FLUARIX) (6 months and older)(PF) Family History Medical History Relation Name Comments Coronary artery disease Brother tony singer Relation Name Status Comments Brother tony singer Social History Tobacco Use Types Packs/Day Years Used Date Smoking Tobacco: Former Cigarettes Quit : 09/09/1994 Alcohol Use Standard Drinks/Week Comments Not Currently 0 (1 standard drink = 0.6 oz pure alcoho l) Alcohol Habits Answer Date Recorded How often [...] or relatives? How often do you attend tenriism or Patient refused 2021 episcopal services? Do you belong to any clubs or No 08/31/2021 organizations such as tenriism groups, unions, fraternal or athletic groups, or [...] months, how many places have you lived? [id number] 08/31/2021 In the last 12 months, was there a time when you did No 08/31/[address] to sleep or slept in a mcc (including now)? Education Answer Date Recorded What is the highest level of school you have completed or 12 th grade 08/31/2021 the highest degree you have received? Sex Assigned at Date Recorded Not on file Last Filed Vital Signs Vital Sign Reading Time Taken Comments Blood Pressure 104/66 08/31/2021 7:42 AM CDT Pulse 73 08/31/2021 7:42 AM CDT Temperature 36.1 ??C (96.9 ??F) 08/31/2021 7:42 AM CDT Respiratory Rate 18 04/01/2016 11:15 PM WATER QUALITY SPECIALIST Oxygen Saturation 99% 08/31/2021 7:42 AM CDT Inhaled Oxygen Concentration - - Weight 73.5 kg (162 lb 0.6 oz) 08/31/2021 7:42 AM CDT Height 184 cm (6' 0.44) 08/31/2021 7:42 AM CDT Body Mass Index 21.71 08/31/2021 7:42 AM CDT Plan of Treatment Health Maintenance Due Date Last Done Comments Hepatitis C Screening 1945 Zoster Vaccines (1 of 2) 01/13/1996 COVID-19 Vaccine (2 - Pfizer 07/15/2020 06/24/2020 series) Influenza Vaccine (#1) 2022 01/24/2020, 02/26/2019, 02/16/2018, Additional history exists Creatinine Level 07/09/2022 07/09/2021, 04/14/2021, 04/12/2021, Additional history exists Potassium Level 07/09/2022 07/09/2021, 04/22/2021, 04/14/2021, Additional history exists Sodium Level 07/09/2022 07/09/2021, 04/26/2021, 04/14/2021, Additional history exists DTaP,Tdap,and Td Vaccines (2 - Td 06/16/2028 06/16/2018, , or Tdap) 05/06/2004 Pneumococcal vaccine (65+ years) Completed 01/20/2015, 08/2012, 06/02/2012 Depression Screening (Annual Completed 08/31/2021 PHQ-2) Fall Risk Screen (Annual) Completed 08/31/2021 Insurance Payer Benefit Plan / Subscriber ID Effective Dates Phone Addre ss Type Group MEDICARE MEDICARE A AND [id number] 2010-Presen [address] Medicare [place] [phone] MEDICA MEDICA CHOICE [id number] 2021-Presen [address] [address] Medicaid [place] [address] [place] [address] Care Teams Clinical Allergist Relationship Specialty Start Date End Date Elsewhere, Pcp PCP - General Internal Medicine 08/31/21
--- OUTSIDE RECORDS SUMMARY | 2022-03-05 03:05 | XMS_ITS | Encounter Summary ---
:1945 Author Organization [facility] Address [address] [place] [address] Care Team Providers Name Role Phone Elsewhere, Pcp Primary Care Provider Unavailable Encounter Details Date Type Department Care Team Description 08/31/2021 Hospital Encounter Department of [facility], Amy gill [facility] Laboratory Medicine [facility] in [place], [address] [place], [place] [address] [address] [place], [place] [phone] (Work) [phone] Social History Tobacco Use Types Packs/Day Years [...] or relatives? How often do you attend caodaism or Patient refused 2021 evangelical services? Do you belong to any clubs or No 08/31/2021 organizations such as caodaism groups, unions, fraternal or athletic groups, or [...] months, how many places have you lived? [id number] 08/31/2021 In the last 12 months, was there a time when you did No 08/31/[address] to sleep or slept in a fpc (including now)? Education Answer Date Recorded What is the highest level of school you have completed or 12 th grade 08/31/2021 the highest degree you have received? Sex Assigned at Date Recorded Not on file documented as of this encounter Medications at Time of Discharge Medication Sig Dispensed Refills Start Date End Date acetaminophen (TYLENOL) 500 Take 500-1,000 mg 0 mg tablet by mouth. ascorbic acid, vitamin C, Take 1 tablet by 0 04/01 (VITAMIN C) 1,000 mg tablet mouth daily. aspirin 81 mg chewable Chew 81 mg. 0 04/15/2021 tablet cholecalciferol (VITAMIN Take 2 capsules by 0 D3) 50 mcg (2,000 Unit) mouth daily. capsule digestive enzymes capsule Take 1 capsule by 0 mouth. dofetilide (TIKOSYN) 250 0 08/26/2021 mcg capsule furosemide (LASIX) 40 mg Take 40 mg by mouth 0 tablet 2 (two) times a day. gabapentin (NEURONTIN) 600 Take 600 qam, 600 405 tablet 1 mg tablet qnoon and 900 qhs x 3 days, then 900 qam, 600 qnoon and 900 qhs x 3 days, then 900 mg tid metoprolol succinate Take 50 mg by mouth 0 2021 (TOPROL-XL) 50 mg 24 hr every evening. tablet sennosides (SENOKOT) 8.6 mg Take by mouth. 0 04/0 07/2021 tablet SUMAtriptan (IMITREX) 50 mg Take 100 mg by 0 tablet mouth at bedtime as needed. warfarin (COUMADIN) 1 mg TAKE 2 TABLETS BY 0 07/2021 tablet MOUTH TUESDAY, TUESDAY, TUESDAY AND 1 TABLET ALL OTHER DAYS OF THE WEEK. zinc gluconate 100 mg Take 50 mg by 0 12/22/2020 tablet mouth. documented as of this encounter Plan of Treatment Not on filedocumented as of this encounter Procedures Procedure Name Priority Date/Time Associated Diagnosis Comme nts FERRITIN, S Routine 08/31/2021 9:05 AM Restless Leg Syndrome Results for this CDT procedure are i n the results section . documented in this encounter Results Ferritin (08/31/2021 9:05 AM CDT) P athologist Signature Ferritin, S 56 31 - 409 08/31/2021 OW[place] mcg/L 10:24 AM CDT Comment: Biotin has been identified by the michaela moran as a potential interfering substance. ??Higher concentr ations of biotin may be found in multivitamins, hair/nail supple ments, and workout supplements. ??If the result does not ma [facility] clinical observations, repeat testing after patient refrains fr om the use of supplements for at least 12 hours. Specimen Anatomical Collection Method Collection Time Receive d Time (Source) Location / / Volume Laterality Blood (Blood, 08/31/2021 9:05 AM 09/01/19 9:15 Venous) CDT AM CDT Amy Linares M.D. LAB BLOOD ADD-ON Performing Organization Address City/State/ZIP Code Phon e Number [facility] [address] [place] [address] [place] [address] System in [place] [address] documented in this encounter Visit Diagnoses Diagnosis Restless Leg Syndrome documented in this encounter Care Teams Street Flusher Driver Relationship Specialty Start Date End Date Elsewhere, Pcp PCP - General Internal Medicine 08/31/21 documented as of this encounter
--- OUTSIDE RECORDS SUMMARY | 2022-03-05 03:05 | XMS_ITS | Encounter Summary ---
:1945 Author Organization [facility] Address [address] [place] [address] Care Team Providers Name Role Phone Aravind Decker MD Primary Care Provider Reason for Visit Procedure/Equipment (Routine) - Closed Specialty Diagnoses / Procedures Referred By Contact Refer red To Contact Procedures Jessica Easton MD CT Angio Chest W IV Cont PE [address] [place] [address] Referral ID Status Reason Start Date Expiration Date Visits Requ ested Visits Authorized [id number] Closed 04/20/2021 07/20/2022 1 1 Encounter Details Date Type Department Care Team Description 04/20/2021 Ancillary Procedure [facility] [address] [place], [place] [id number] Social History Tobacco Use Types Packs/Day Years Used Date Smoking Tobacco: Former Cigarettes Quit : 05/02/1965 Alcohol Use Standard Drinks/Week Comments No 0 (1 standard drink = 0.6 oz pure alcoho l) QUIT 14 YEARS AGO Sex Assigned at Date Recorded Not on file documented as of this encounter Plan of Treatment Not on filedocumented as of this encounter Procedures Procedure Name Priority Date/Time Associated Diagnosis Comme nts CT ANGIO CHEST W IV STAT 04/20/2021 4:05 AM Re sults for this CONT PE STUDY GARAGE HAND procedure are in the results section. documented in this encounter Visit Diagnoses Not on filedocumented in this encounter Administered Medications Inactive Administered Medications - up to 3 most recent administrations Medication Order MAR Action Action Date Dose Rate Site iohexol (OMNIPAQUE 350) 350 MG/ML Given 04/20/2021 4:06 AM GARAGE HAND 1 00 mL injection 100 mL 100 mL, Intravenous, ONCE (NON-SCHEDULED), Starting on Tue04/20/21 at 0406, Until Tue04/20/21 at 0406, For 1 dose documented in this encounter Care Teams Seat Joiner Relationship Specialty Start Date End Date Aravind Decker MD PCP - General Family Practice 01/14/14 [address] [place] [address] documented as of this encounter
--- OUTSIDE RECORDS SUMMARY | 2022-03-05 03:05 | XMS_ITS | Encounter Summary ---
:1945 [facility] Address [address] [place] [address] Care Team Providers Name Role Phone Aravind Decker MD Primary Care Provider Encounter Details Date Type Department Care Team Description 04/20/2021 Orders Only [facility] Jessica garcia MD Department [address] [address] [place], [place] [id number] [phone] Social History Tobacco Use Types Packs/Day Years [...] Diagnoses Not on filedocumented in this encounter Care Teams Government Auditor Relationship Specialty Start Date End Date Aravind Decker MD PCP - General Family Practice 01/14/14 [place] [address] documented as of this encounter
--- OUTSIDE RECORDS SUMMARY | 2022-03-05 03:05 | XMS_ITS | Encounter Summary ---
:1945 Author Organization [facility] Address [address] [place] [address] Care Team Providers Name Role Phone Elsewhere, Pcp Primary Care Provider Unavailable Reason for Visit Reason Comments Restless Legs Going on about 10 years off & on-more constant recently-can't sleep Appointment Request (Routine) - Closed Specialty Diagnoses / Procedures Referred By Contact Refer red To Contact Community Internal Medicine Referral ID Status Reason Start Date Expiration Date Visits Requ ested Visits Authorized [id number] Closed 08/18/2021 08/18/2022 1 1 Encounter Details Date Type Department Care Team Description 08/31/2021 Office Visit Department of Internal Amy Linares, Restless Leg Syndrome (Primary Dx); Medicine in [facility] [address] [place] [phone] Social History Tobacco Use Types Packs/Day Years [...] or relatives? How often do you attend nondenominational or Patient refused 2021 mandaen services? Do you belong to any clubs or No 08/31/2021 organizations such as nondenominational groups, unions, fraternal or athletic groups, or [...] months, how many places have you lived? [id number] 08/31/2021 In the last 12 months, was there a time when you did No 08/31/[address] to sleep or slept in a nursing home (including now)? Education Answer Date Recorded What is the highest level of school you have completed or 12 th grade 08/31/2021 the highest degree you have received? Sex Assigned at Date Recorded Not on file documented as of this encounter Last Filed Vital Signs Vital Sign Reading Time Taken Comments Blood Pressure 104/66 08/31/2021 7:42 AM CDT Pulse 73 08/31/2021 7:42 AM CDT Temperature 36.1 ??C (96.9 ??F) 08/31/2021 7:42 AM CDT Respiratory Rate - - Oxygen Saturation 99% 08/31/2021 7:42 AM CDT Inhaled Oxygen Concentration - - Weight 73.5 kg (162 lb 0.6 oz) 08/31/2021 7:42 AM CDT Height 184 cm (6' 0.44) 08/31/2021 7:42 AM CDT Body Mass Index 21.71 08/31/2021 7:42 AM CDT documented in this encounter Patient Instructions Patient InstructionsAmy Linares M.D. - 08/31/2021 8:00 AM CDT Today we will check your iron level to see if you would benefit from taking an iron supplement. Sometimes this can help patients with restless legs. You should try to cut back on caffeine because this can contribute to restless leg symptoms. I will have you gradually increase the gabapentin dose to see if that helps improve things. You willtake 600 mg in the morning, 600 mid day and then 900 mg at bedtime for 3 days, then increase to 900 mg in the morning, 600 mg mid day and 900 mg at bedtime for 3 days, then increase to 900 mg 3 times aday. If your symptoms do not improve with the higher dose of gabapentin, please contact your primary careprovider to get a neurology consultation. documented in this encounter Progress Notes Amy Linares M.D. - 08/31/2021 7:45 AM CDT SUBJECTIVE Mr. English is a 76 y.o. male who presents for evaluation of Restless Legs (Going on about 10 yearsoff & on-more constant recently-can't sleep). HISTORY OF PRESENT ILLNESS Cornell is a patient of Dr. Fitch at the [facility] and is seen today to discuss his restlessleg symptoms. His medical history is significant for congestive heart failure, atrial fibrillation with Maze procedure and ligation of left atrial appendage, ascending aortic aneurysm repair, hypertension and history of COVID-19 infection. He has been experiencing restless leg symptoms for the past 10years. At 1st these were only at night and now the symptoms even bother him during the day. He has been taking gabapentin for several months and recently increased the dose on his own to 600 mg 3 timesdaily. This has helped alleviate the symptoms somewhat but he still has fairly significant issues with the constant sensation that he needs to move his legs. He saw Neurology 5 or 6 years ago and says he was told he would have to live with these symptoms forever. He wonders if something more can be done about this. When he scheduled today's appointment he thought that this provider was an expert in restless legs and was disappointed to find out that this provider is a primary care internal medicine physician. Despite that he would like to get some advice about restless leg treatment. He also questions whether or not he is on the right medications for congestive heart failure. He sees a assistant news director regularly and also sees his primary care provider regularly. He is currently on Tikosyn due to the history of atrial fibrillation and takes furosemide and metoprolol for the congestive heart failure. He tries to be very careful about following a low-sodium diet. His endurance has increased over the last several months since he had his surgery and he feels much better. He has not had significant problems with dyspnea, orthopnea, PND or lower extremity edema. He likes to wear compression stockings to control the lower extremity edema and would like a prescription for a new pair today. REVIEW OF SYSTEMS Constitutional: Negative for fatigue and fever. Respiratory: Negative for dyspnea. Cardiovascular: Negative for chest pain, pressure or tightness and swelling in the legs or feet. The patient's allergies, current medications, problem list, and social history were reviewed and updated as appropriate. OBJECTIVE Vitals: 08/31/21 0742 BP: 104/66 Pulse: 73 Temp: 36.1 ??C SpO2: 99% BMI Readings from Last 3 Encounters: 08/31/21 21.71 kg/m?? Wt Readings from Last 3 Encounters: 08/31/21 73.5 kg PHYSICAL EXAM Physical Exam General: Alert, adult male with normal speech, in no acute distress. Skin: Warm and dry. No jaundice. Peripheral Vessels: Radial and dorsalis pedis pulses 2+ bilaterally. Heart: Regular rate and rhythm, normal S1 and S2. Lungs: Clear to auscultation bilaterally. No wheezes, crackles or rhonchi. Abdomen: Soft, active bowel sounds. Nondistended, nontender. Extremities: Warm. No cyanosis, clubbing or pitting edema. Gait: Normal. NEURO: Face symmetric and he moves all 4 extremities equally, no focal deficits. ASSESSMENT / PLAN #1 Restless Leg Syndrome He has fairly severe restless leg symptoms which have been somewhat controlled on the gabapentin. Recommend he try gradually titrating the gabapentin dose to 900 mg 3 times daily to see if that helps better control his symptoms. He will also undergo ferritin testing today. If this is less than 75 would recommend adding an iron supplement once daily. He should avoid caffeine. If his symptoms are not controlled with the higher dose gabapentin, he should contact his primary care provider about getting a referral to Neurology. #2 Edema He requests a prescription for new knee-high compression stockings today and this was provided for him. I spent a total of 36 minutes on the day of the visit. Amy Linares M.D. documented in this encounter Plan of Treatment Not on filedocumented as of this encounter Results Ferritin (08/31/2021 9:05 AM CDT) P athologist Signature Ferritin, S 56 31 - 409 08/31/2021 OWAT mcg/L 10:24 AM CDT Comment: Biotin has been identified by the michaela moran as a potential interfering substance. ??Higher concentr ations of biotin may be found in multivitamins, hair/nail supple ments, and workout supplements. ??If the result does not ma tch clinical observations, repeat testing after patient refrains fr om the use of supplements for at least 12 hours. Specimen Anatomical Collection Method Collection Time Receive d Time (Source) Location / / Volume Laterality Blood (Blood, 08/31/2021 9:05 AM 09/01/19 9:15 Venous) CDT AM CDT Amy Linares M.D. LAB BLOOD ADD-ON Performing Organization Address City/State/ZIP Code Phon e Number [facility] [address] [place] [address] [place] [address] System in [place] [address] documented in this encounter Visit Diagnoses Diagnosis Restless Leg Syndrome - Primary Edema documented in this encounter Care Teams Gas Blender Relationship Specialty Start Date End Date Elsewhere, Pcp PCP - General Internal Medicine 08/31/21 documented as of this encounter
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
--- OUTSIDE RECORDS SUMMARY | 2022-03-05 03:05 | XMS_ITS | Encounter Summary ---
:1945 Author Organization [employer] Address [address] [place] [address] Care Team Providers Name Role Phone Aravind Decker MD Primary Care Provider Reason for Visit Procedure/Equipment (Routine) - Closed Specialty Diagnoses / Procedures Referred By Contact Refer red To Contact Procedures Papito Jewell MD POC US BASIC CARDIAC [address] [place] [address] Referral ID Status Reason Start Date Expiration Date Visits Requ ested Visits Authorized [id number] Closed 04/15/2021 07/15/2022 1 1 Encounter Details Date Type Department Care Team Description 04/15/2021 Ancillary Procedure [address] [address] Social History Tobacco Use Types Packs/Day Years [...] Name Priority Date/Time Associated Diagnosis Comme nts POC US BASIC Routine 04/15/2021 6:42 AM Results f or this CARDIAC OPHTHALMIC LENS INSPECTOR procedure are i n the results section. documented in this encounter Results POC US BASIC CARDIAC (04/15/2021 6:42 AM OPHTHALMIC LENS INSPECTOR) Anatomical Region Laterality Modality Chest, Cardiac, US Cardiac Other Specimen (Source) Anatomical Location Collection Method / Collectio n Time Received Time / Laterality Volume Narrative 04/15/2021 6:59 AM OPHTHALMIC LENS INSPECTOR Papito Jewell MD ? 04/15/2021 ??7:00 AM [facility] Point of Care Ultrasound Interpretation POC US BASIC CARDIAC Date/Time: 04/15/2021 6:59 AM Performed by: Papito Jewell MD Authorized by: Papito Jewell MD Point of Care Ultrasound: Basic Cardiac Indications: Chest Pain Window: Adequate for full imaging and in terpretation Findings/ Impression (Within the context of limited gbuyp-iu-ycyr ultrasound): Good Global Function and No Pericardial Effusion Papito Jewell MD RAD POC US documented in this encounter Visit Diagnoses Not on filedocumented in this encounter Care Teams Coffee Break Attendant Relationship Specialty Start Date End Date Aravind Decker MD PCP - General Family Practice 01/14/14 [address] [place] [address] documented as of this encounter
--- OUTSIDE RECORDS SUMMARY | 2022-03-05 03:05 | XMS_ITS | Encounter Summary ---
:1945 Author Organization [email or web address] Address [address] [place] [address] Care Team Providers Name Role Phone Aravind Decker MD Primary Care Provider Reason for Visit Procedure/Equipment (Routine) - Closed Specialty Diagnoses / Procedures Referred By Contact Refer red To Contact Procedures Papito Jewell MD CT Angio Chest Abd Pel W/WO [address] [place] [address] Referral ID Status Reason Start Date Expiration Date Visits Requ ested Visits Authorized [id number] Closed 04/15/2021 07/15/2022 1 1 Encounter Details Date Type Department Care Team Description 04/15/2021 Ancillary Procedure [facility] [address] [place] [address] Social History Tobacco Use Types Packs/Day Years [...] encounter Procedures Procedure Name Priority Date/Time Associated Comments Diagnosis CT ANGIO CHEST ABD STAT 04/15/2021 7:16 AM Res ults for this PEL W/WO IV CONT CRITICAL CARE UNIT NURSE procedure a re in DISSECTION the results section. documented in this encounter Visit Diagnoses Not on filedocumented in this encounter Administered Medications Inactive Administered Medications - up to 3 most recent administrations Medication Order MAR Action Action Date Dose Rate Site iohexol (OMNIPAQUE 350) 350 MG/ML Given 04/15/2021 7:23 AM CRITICAL CARE UNIT NURSE 1 00 mL injection 100 mL 100 mL, Intravenous, ONCE (NON-SCHEDULED), Starting on Tue04/15/21 at 0722, Until Tue04/15/21 at 0723, For 1 dose documented in this encounter Care Teams Crew Leader Relationship Specialty Start Date End Date Aravind Decker MD PCP - General Family Practice 01/14/14 [address] [place] [address] documented as of this encounter
--- OUTSIDE RECORDS SUMMARY | 2022-03-05 03:05 | XMS_ITS | Encounter Summary ---
:1945 Author Organization [facility] Address [address] [place] [address] Care Team Providers Name Role Phone Aravind Decker MD Primary Care Provider Reason for Referral Procedure/Equipment (Routine) - Closed Specialty Diagnoses / Procedures Referred By Contact Refer red To Contact Procedures Jessica Easton MD CT Angio Chest W IV Cont PE [address] [place] [address] Referral ID Status Reason Start Date Expiration Date Visits Requ ested Visits Authorized [id number] Closed 04/20/2021 07/20/2022 1 1 [facility] Reason for Visit Reason Comments Chest Pain TACHYCARDIA Fever Encounter Details Date Type Department Care Team Description 04/20/2021 Emergency [facility] Jessica Easton MD SOB (shortness of Emergency Department [address] [facility]) (Primary Dx) [address] [place] [address] [place], [place] [id number] [phone] Social History Tobacco Use Types Packs/Day Years Used Date Smoking Tobacco: Former Cigarettes Quit : 05/02/1965 Alcohol Use Standard Drinks/Week Comments No 0 (1 standard drink = 0.6 oz pure alcoho l) QUIT 14 YEARS AGO Sex Assigned at Date Recorded Not on file documented as of this encounter Last Filed Vital Signs Vital Sign Reading Time Taken Comments Blood Pressure 110/57 04/20/2021 5:22 AM [facility] Pulse 96 04/20/2021 5:22 AM [facility] Temperature 36.9 ??C (98.5 ??F) 04/20/2021 2:42 AM [facility] Respiratory Rate 24 04/20/2021 5:22 AM [facility] Oxygen Saturation 96% 04/20/2021 5:22 AM [facility] Inhaled Oxygen Concentration - - Weight 73.5 kg (162 lb) 04/20/2021 2:42 AM [facility] Height 182.9 cm (6') 04/20/2021 2:42 AM [facility] Body Mass Index 21.97 04/20/2021 2:42 AM [facility] documented in this encounter Discharge Instructions Discharge InstructionsJessica Cabrera MD - 04/20/2021 5:02 AM CST Start taking the antibiotics for the prescribed time. Do not stop early. Follow up with your surgical/heart team with an update on your status in the morning. The antibiotics that are being prescribed today are less likely to affect your warfarin but still can, as any antibiotic could. So you need to make sure that you follow-up with your anticoagulation clinic to make sure that your warfarin is being dosed appropriately. Do not stop taking his medication just because it can affect your warfarin. The anticoagulation clinic will help to adjust your warfarindosing appropriately so that you can take the full course of your medications. [facility]ER AttachmentsThe following attachments cannot be sent through Care Everywhere.SOB (Shortness of Breath) (Welsh)Pneumonia (Welsh)documented in this encounter Medications at Time of Discharge Medication Sig Dispensed Refills Start Date End Date ATENolol (AKA TENORMIN) Take 25 mg by mouth 0 25 MG tabletIndications: every morning. Hypertension, Indications: High Blood Supraventricular Cardiac Pressure, Arrhythmia Supraventricular Cardiac Arrhythmia cholecalciferol (VITAMIN Take 1,000 Units by 0 D3) 1000 UNITS tablet mouth two times a day with meals. DIAZEpam (AKA VALIUM) 5 Take 2 mg by mouth 0 MG tablet daily as needed for Anxiety. Hasn't had for months DIGESTIVE ENZYMES OR Take 1 Cap by mouth 0 daily. Before supper diltiazem CD coated Take 120 mg by mouth 0 beads (CARDIZEM CD) 120 daily. Before breakfast MG 24 hour release capsule dofetilide (TIKOSYN) 250 Take 250 mcg by mouth 0 MCG capsuleIndications: every 12 hours. Atrial Fibrillation Indications: Atrial Fibrillation magnesium oxide (AKA Take 1 mg by mouth two 0 MAG-OX 400) 250 MG times a day with meals. tablet Magnesium-Zinc 133.33-5 Take 1 Tab by mouth 0 MG TABS daily. H&P says Magnesium 250mg BID verify ondansetron (AKA ZOFRAN) Take 4 mg by mouth 0 4 MG disintegrating every 6 hours as needed tablet for Nausea (or vomiting). Pt not taking anymore oxyCODONE-acetaminophen Take 1-2 Tabs by mouth 65 Tab 0 01/17/2014 (AKA PERCOCET) 5-325 MG every 4 hours as needed tablet for Pain. sildenafil (AKA VIAGRA) Take 50 mg by mouth. As 0 50 MG tabletIndications: needed for ED. Take 30 Erectile Dysfunction min to 4 hours prior to sexual activity. Max of 100mg per 24 hours Indications: Erectile Dysfunction SUMAtriptan (AKA Take 100 mg by mouth 0 IMITREX) 50 MG tablet once as needed (for migraine.). Max dose of 200mg per 24 hours warfarin (AKA COUMADIN) Take 2.5 mg by mouth 0 2.5 MG tablet every evening. At 5 pm on Mondays, Wednesdays, & Fridays warfarin (AKA COUMADIN) Take 5 mg by mouth 0 5 MG tablet daily. At 5pm on Sundays, Tuesdays, & Saturdays documented as of this encounter ED Notes Ashanti Ramirez RN - 04/20/2021 5:28 AM CST [facility] ED Nursing Discharge Note Patient discharged: to Home. Patient accompanied by: Friend, significant other Transported by: Walked Belongings were taken home by patient: Yes Work/School Slip given: N/A Discharge instructions given and explained to patient: Yes Discharge prescriptions explained to patient: Yes: Medications Prescribed this Visit Disp Refills Start End cefuroxime (CEFTIN) 500 MG tablet 10 Tablet 0 04/20/2021 04/25/2021 Take 1 Tablet by mouth two times a day for 5 days. Indications: Community Acquired Pneumonia Oral doxycycline monohydrate (MONODOX) 100 MG capsule 10 Capsule 0 04/20/2021 04/25/2021 Take 1 Capsule by mouth two times a day for 5 days. Indications: Community Acquired Pneumonia Notes to Pharmacy: Pharmacy may substitute hyclate or monohydrate tab or capsule based on insurance Oral Patient verbalized understanding. Yes Patient level of pain on discharge: Improved, tolerable Patients condition on discharge related to chief complaint and treatment in ED: Stable and ambulatory. Verbalized understanding of discharge instructions and follow up recommendations. Holds documented by nursing during this visit, please review chart for most current hold status: No orders of the defined types were placed in this encounter. ---End of Report--- GLER Jessica Cabrera MD - 04/20/2021 3:01 AM CST [facility] Emergency Medicine Visit Note Chief Complaint: Chest Pain, TACHYCARDIA, and Fever HPI 76-year-old man who recently had a repair of an ascending aortic aneurysm at [facility] that was complicated by multiple chest tubes and pneumothorax and pleural effusions. He comes in now with complaint of shortness of breath and a racing heartbeat. He has also had a fever up to 101.7 at home. He feels generally ill and seems to be getting worse. He was discharged from the hospital at [facility] last Tuesday. He was then seen on the for a shortness of breath here in the emergency department and ultimately sent home with instructions from his surgeon to follow-up 2 weeks sooner than had been planned. He had a pleural effusion that was potentially concern for empyema but because of his negative inflammatory markers and the fact that he is still on antibiotics treatment course was not changed. It sounds like since that time he has been spikingfevers, which was new. In addition to the above, I have personally reviewed any medications, allergies, problem list, medical history, surgical history and social history in the health record as of this visit. Review of Systems A complete review of systems was performed and is otherwise negative. Triage Vitals [04/20/21 0242] Temp 98.5 ??F (36.9 ??C) Temp src Oral Pulse (!) 106 Resp 20 BP 110/54 SpO2 93 % Physical Exam General: alert, very cachectic appearing HEENT: PERRL, EOMI, conjunctivae normal, sclera anicteric, no nasal discharge, oropharynx clear withmoist mucous membranes Respiratory: Coarse breath sounds but no wheezing CV: Mildly tachycardic GI/Abdomen: soft, nontender, non-distended Musculoskeletal: full ROM throughout extremities, strong palpable distal pulses, no edema, no calf tenderness Neuro: alert, oriented, no gross deficits Skin: dry, no rashes Psychiatric: normal mood with congruent affect, no SI or HI MDM: Patient is postoperatively having fevers as well as shortness of breath. Differential diagnosisincludes PE, infection, pneumothorax, hemothorax. He had evaluation for this problem 5 days ago thatultimately was fairly unremarkable. However, there does remain question as to whether not the pleural effusion is an empyema. Now that he is spiking fevers I am additionally concerned about this. It isalso possible that he has a PE or that his effusion is getting bigger. I think repeat imaging is warranted to evaluate this. I will also repeat inflammatory markers and basic labs. He is currently on amoxicillin which may not be adequate coverage for an empyema. He is also currently on heparin and warfarin. This makes it less likely that he has a PE but not impossible in his postoperative state. Jessica Cabrera MD ED Course as of 04/20/21 0503 Mon Apr 20, 2021 0308 ECG 12-Lead STAT Sinus tachycardia with first-degree AV block. Some noise on the baseline but no obvious ischemia evident. [] 0316 Lactate, Whole Blood: 0.70 [] 0327 WBC(!): 11.2 Similar to 5 days ago and does have a left shift. [] 0330 INR(!): 2.3 therapeutic [] 0340 C-Reactive Protein(!): 13.9 Elevated but no baseline in the chart that I can see [] 0340 BASIC METABOLIC PANEL(!) Fairly unremarkable [] 0354 B Type Natr. Peptide(!): 477 Could have some heart failure [] 0358 Procalcitonin: 0.10 Argues against severe infection or pneumonia [] 0359 Troponin I(!): 0.07 Improving from previous levels [] 0436 Patient says that he was told to stop taking his antibiotics by multiple providers so he has not actually been taking his antibiotics since the [] 043 He has an elevated BNP but no obvious signs of pulmonary edema on his CT and his loculated pleural effusion has not altered since previous examination. [] 0457 He has not been taking his outpatient antibiotics that he was previously prescribed only had about 2-3 days of these. I think it is reasonable to restart him on some antibiotics to cover pulmonarysources. However, he is very hesitant to take anything that would interfere with his warfarin levels. With this I will put him on a cephalosporin as well as doxycycline which is less likely to interfere than azithromycin. This will cover Pseudomonas but he has already completed a course of pseudomonalcoverage while he was in patient. The medications that he was previously prescribed for his lung inflammation did not cover Pseudomonas either. [] ED Course User Index [] Jessica Cabrera MD Clinical Impressions as of 04/20/21 0503 SOB (shortness of breath) GLER documented in this encounter Plan of Treatment Not on filedocumented as of this encounter Procedures Procedure Name Priority Date/Time Associated Comments Diagnosis CT ANGIO CHEST W IV STAT 04/20/2021 4:05 AM Re sults for this CONT PE STUDY [facility] procedure are in the results section. INR/PROTIME STAT 04/20/2021 3:12 AM Results f or this [facility] procedure are i n the results section. BRAIN NATRIURETIC STAT 04/20/2021 3:11 AM Resu lts for this PEPTIDE (BNP) [facility] procedure are in the results section. CBC AND DIFFERENTIAL STAT 04/20/2021 3:09 AM R esults for this PANEL [facility] procedure are i n the results section. LACTATE, WHOLE BLOOD Routine 04/20/2021 3:09 AM R esults for this [facility] procedure are i n the results section. PROCALCITONIN Routine 04/20/2021 3:09 AM Results for this [facility] procedure are i n the results section. COMPLETE BLOOD STAT 04/20/2021 3:09 AM Results for this COUNT-W/DIFF [facility] procedure are i n the results section. BASIC METABOLIC PANEL STAT 04/20/2021 3:09 AM Results for this [facility] procedure are i n the results section. TROPONIN I STAT 04/20/2021 3:09 AM Results f or this [facility] procedure are i n the results section. C-REACTIVE PROTEIN STAT 04/20/2021 3:09 AM Res ults for this [facility] procedure are i n the results section. ECG-ROUTINE 12 LEAD; STAT 04/20/2021 2:47 AM R esults for this INTRPT & REPRT [facility] procedure are in the results section. documented in this encounter Results CT Angio Chest W IV Cont PE Study (04/20/2021 4:05 AM [facility]) Anatomical Region Laterality Modality Chest, Lung, Vascular Computed Tomograph y Specimen (Source) Anatomical Collection Method Collection Time Re ceived Time Location / / Volume Laterality 04/20/2021 4:05 AM [facility] Narrative 04/20/2021 4:25 AM [facility] EXAM: CT ANGIO CHEST W IV CONT PE STUDY LOCATION: [facility] DATE/TIME: 04/20/2021 4:05 AM INDICATION: Chest pain and fever. Recent ascending aortic aneurysm repair. COMPARISON: CT from 04/15/2021. TECHNIQUE: CT chest pulmonary angiogram during arterial phase injection of IV contrast. Multiplanar reformats and MIP reconstructions were performed. Dose reduction techniques were used. CONTRAST: IOHEXOL 350 MG/ML IV SOLN 100 mL FINDINGS: ANGIOGRAM CHEST: Pulmonary arteries are normal caliber and negative for pulmonary emboli. Status post ascending thoracic aorta repair. Aneurysmal dilatation just distal to the graft measuring 4.4 cm jerrod meter on image 72 of series 4. No acute dissection. No CT evidence of right heart strain. LUNGS AND PLEURA: Similar appearance of multiple bilateral pulmonary nodules, most focal in the right mid and lower lung zones. Increased interstitial opacities at the lung bases. Cavitary nodule again noted at the medial right lung base carmen uring up to 2.3 cm transversely, previously 2.7 cm when measured in similar fashion. Redemonstrated right hydropneumothorax, the fluid component of which is simil ar. Of note, there is an obliquely orien amarilys focus of fluid and gas in the right subpulmonic region on axial images 128-146, possibly reflecting a prior tube or drain tract. Small left pleural effusion. MEDIASTINUM/AXILLAE: Status post ascendi ng aortic graft repair. Heart size is normal. No pericardial effusion. Left atrial appendage ligation clip. CORONARY ARTERY CALCIFICATION: Mild. UPPER ABDOMEN: Cholecystectomy clips. MUSCULOSKELETAL: Prior sternotomy. No ac augustine osseous findings. IMPRESSION: 1. ??Negative for pulmonary embolism. 2. ??Redemonstrated infectious or inflam matory nodular infiltrates in both lungs. Slight interval increase in basilar interstitial infiltrates potentially reflecting a component of edema. 3. ??Redemonstrated right hydropneumotho rax versus empyema, similar in appearance to the prior CT. 4. ??Small left pleural effusion. Procedure Note Rohan Disla MD - 04/20/2021Format ting of this note might be different from the original. EXAM: CT ANGIO CHEST W IV CONT PE STUDY LOCATION: [facility] DATE/TIME: 04/20/2021 4:05 AM INDICATION: Chest pain and fever. Recent ascending aortic aneurysm repair. COMPARISON: CT from 04/15/2021. TECHNIQUE: CT chest pulmonary angiogram during arterial phase injection of IV contrast. Multiplanar reformats and MIP reconstructions were performed. Dose reduction techniques were used. CONTRAST: IOHEXOL 350 MG/ML IV SOLN 100 mL FINDINGS: ANGIOGRAM CHEST: Pulmonary arteries are normal caliber and negative for pulmonary emboli. Status post ascending thoracic aorta repair. Aneurysmal dilatation just distal to the graft measuring 4.4 cm diameter on image 72 of series 4. No acute dissection. No CT evidence of right heart strain. LUNGS AND PLEURA: Similar appearance of multiple bilateral pulmonary nodules, most focal in the right mid and lower lung zones. Increased interstitial opacities at the lung bases. Cavitary nodule again noted at the medial right lung base measuring up to 2.3 cm transversely, previously 2.7 cm when measured in similar fashion. Redemonstrated right hydropneumothorax, the fluid component of which is similar. Of note, there is an obliquely oriented focus of fluid and gas in the right subpulmonic region on axial images 128-146, possibly reflecting a prior tube or drain tract. Small left pleural effusion. MEDIASTINUM/AXILLAE: Status post ascendi ng aortic graft repair. Heart size is normal. No pericardial effusion. Left atrial appendage ligation clip. CORONARY ARTERY CALCIFICATION: Mild. UPPER ABDOMEN: Cholecystectomy clips. MUSCULOSKELETAL: Prior sternotomy. No ac augustine osseous findings. IMPRESSION: 1. Negative for pulmonary embolism. 2. Redemonstrated infectious or inflamma tory nodular infiltrates in both lungs. Slight interval increase in basilar interstitial infiltrates potentially reflecting a component of edema. 3. Redemonstrated right hydropneumothora x versus empyema, similar in appearance to the prior CT. 4. Small left pleural effusion. Jessica Easton MD RAD CT (ABNORMAL) INR/PROTIME (04/20/2021 3:12 AM [facility]) athologist [facility] Protime 25.4 (H) 11.8 - 14.6 04/20/2021 [place] Seconds 3:29 AM [facility] INR 2.3 (H) 0.9 - 1.1 04/20/2021 [place] 3:29 AM [facility] Specimen Anatomical Collection Method / Collection Time Recei bob Time (Source) Location / Volume Laterality Blood Venipuncture / 04/20/2021 3:12 04/20/2021 3:16 Unknown AM [facility] AM [facility] Narrative [facility] - 04/20/2021 3:29 AM [facility] Therapeutic range determined by protocol established by anticoagulation provider. Jessica Easton MD LAB_1 Performing Organization Address [facility] [address] [place] [phone] (ABNORMAL) B-Type Natriuretic Peptide (04/20/2021 3:11 AM [facility]) [facility] Type Natr. 477 (H) <=99 pg/mL 04/20/2021 [place] Peptide 3:49 AM [facility] Specimen Anatomical Collection Method / Collection Time Recei bob Time (Source) Location / Volume Laterality Blood Venipuncture / 04/20/2021 3:11 04/20/2021 3:16 Unknown AM [facility] AM [facility] Jessica Easton MD LAB_1 Performing Organization Address [facility]/ZIP [facility] e Number [facility] [address] [place] [phone] (ABNORMAL) Troponin I (04/20/2021 3:09 AM [facility]) [facility] Troponin I 0.07 (H) 0.00 - 0.03 04/20/2021 [place] ng/mL 3:58 AM [facility] Specimen Anatomical Collection Method / Collection Time Recei bob Time (Source) Location / Volume Laterality Blood Venipuncture / 04/20/2021 3:09 04/20/2021 3:16 Unknown AM [facility] AM [facility] Jessica Easton MD LAB_1 Performing Organization Address City/State/ZIP Code Phon e Number [facility] [address] [place] [address] (ABNORMAL) Complete Blood Count-W/Diff (04/20/2021 3:09 AM [facility]) Analysis Performed At Patho logist Time Signature WBC 11.2 (H) 3.5 - 10.5 04/20/2021 [place] x10(9)/L 3:23 AM [facility] RBC 2.84 (L) 4.32 - 04/20/2021 [place] 5.72 3:23 AM [facility] x10(12)/L Hemoglobin 8.3 (L) 13.5 - 04/20/2021 [place] 17.5 g/dL 3:23 AM [facility] HCT 26.1 (L) 38.8 - 04/20/2021 [place] 50.0 % 3:23 AM [facility] MCV 91.9 80.0 - 04/20/2021 [place] 100.0 fL 3:23 AM [facility] MCH 29.2 27.6 - 04/20/2021 [place] 33.3 pg 3:23 AM [facility] MCHC 31.8 31.5 - 04/20/2021 [place] 35.2 g/dL 3:23 AM [facility] RDW 13.8 11.9 - 04/20/2021 [place] 15.5 % 3:23 AM [facility] Platelets 451 (H) 150 - 450 04/20/2021 [place] x10(9)/L 3:23 AM [facility] Immature Gran % 0.6 (H) 0.0 - 0.5 04/20/2021 [place] % 3:23 AM [facility] Automated NRBC 0 <=0 /100 04/20/2021 [place] WBC 3:23 AM [facility] Neutrophil 9.2 (H) 1.7 - 7.0 04/20/2021 [place] Absolute 10(9)/L 3:23 AM [facility] Lymphocyte 0.7 (L) 1.0 - 4.8 04/20/2021 [place] Absolute 10(9)/L 3:23 AM [facility] Monocytes 1.0 (H) 0.2 - 0.9 04/20/2021 [place] Absolute 10(9)/L 3:23 AM [facility] Eosinophil 0.2 0.0 - 0.5 04/20/2021 [place] Absolute 10(9)/L 3:23 AM [facility] Basophil 0.0 0.0 - 0.3 04/20/2021 [place] Absolute 10(9)/L 3:23 AM [facility] Specimen Anatomical Collection Method / Collection Time Recei bob Time (Source) Location / Volume Laterality Blood Venipuncture / 04/20/2021 3:09 04/20/2021 3:16 Unknown AM [facility] AM [facility] Jessica Easton MD LAB_1 Performing Organization Address City/State/ZIP Code Phon e Number [facility] [address] [place] [address] Procalcitonin (04/20/2021 3:09 AM [facility]) P athologist Signature Procalcitonin 0.10 <=0.24 04/20/2021 [place] ng/mL 3:58 AM [facility] Specimen Anatomical Collection Method / Collection Time Recei bob Time (Source) Location / Volume Laterality Blood Venipuncture / 04/20/2021 3:09 04/20/2021 3:16 Unknown AM [facility] AM [facility] Narrative [facility] - 04/20/2021 3:58 AM [facility] Differential Diagnosis of Lower Respiratory Tract Infection <0.10: Indicates absence of bacterial in fections. Use of antibiotics strongly discouraged. 0.10-0.24: Bacterial infection unlikely. Use of antibiotics is discouraged. 0.25-0.49: Bacterial infection possible. Antibiotic treatment is recommended. >= 0.50: Suggestive of the presence of b acterial infection. Antibiotic treatment is strongly recommended. Differential Diagnosis of Systemic Bacte rial Infection <0.50: Systemic infection is not likely. Local bacterial infection is possible. Low risk for progression to severe systemic infection. 0.50-1.99: Systemic infection possible, but various conditions are also known to induce Procalcitonin. Moderate risk for progression to severe systemic infection. The patient should be closely monitored both clinically and by reassessing Proc alcitonin levels within 6-24 hours. 2.0-9.99: Systemic infection is likely, unless other causes are known. High risk for progression to severe systemic infection. >= 10.00: Important systemic inflammator y response, almost exclusively due to severe bacterial sepsis or septic shock. High likelihood of severe sepsis or septic shock. Clinicans should use the PCT clinical re sults in conjunction with other laboratory findings and clinical signs and should interpret the PCT results in the context of the patient's clinical situation. Jessica Easton MD LAB_1 Performing Organization Address [facility] [address] [place] [phone] (ABNORMAL) C-Reactive Protein (04/20/2021 3:09 AM [facility]) athologist Signature C-Reactive 13.9 (H) 0.0 - 0.7 04/20/2021 [place] Protein mg/dL 3:38 AM [facility] Specimen Anatomical Collection Method / Collection Time Recei bob Time (Source) Location / Volume Laterality Blood Venipuncture / 04/20/2021 3:09 04/20/2021 3:16 Unknown AM [facility] AM [facility] Jessica Easton MD LAB_1 Performing Organization Address [place]/[facility] [address] [place] [phone] Lactate, Whole Blood (04/20/2021 3:09 AM [facility]) athologist Signature Lactate, Whole 0.70 0.50 - 04/20/2021 [place] Blood 2.00 3:15 AM [facility] mmol/L Specimen Anatomical Collection Method / Collection Time Recei bob Time (Source) Location / Volume Laterality Blood Venipuncture / 04/20/2021 3:09 04/20/2021 3:14 Unknown AM [facility] AM [facility] Narrative [facility] - 04/20/2021 3:15 AM [facility] Reference range for healthy individuals when sepsis is not suspected is 0.5-2.2 mmol/L Jessica Easton MD LAB_1 Performing Organization Address [facility]/State/[facility] [address] [place] [address] (ABNORMAL) BASIC METABOLIC PANEL (04/20/2021 3:09 AM [facility]) athologist Signature Sodium 133 (L) 136 - 145 04/20/2021 [place] mmol/L 3:38 AM [facility] Potassium 3.7 3.5 - 5.1 04/20/2021 [place] mmol/L 3:38 AM [facility] Chloride 100 98 - 109 04/20/2021 [place] mmol/L 3:38 AM [facility] CO2 22 20 - 29 04/20/2021 [place] mmol/L 3:38 AM [facility] Anion Gap 11 7 - 16 04/20/2021 [place] mmol/L 3:38 AM [facility] Calcium 8.8 8.4 - 10.4 04/20/2021 [place] mg/dL 3:38 AM [facility] BUN 16 7 - 26 04/20/2021 [place] mg/dL 3:38 AM [facility] Creatinine 0.74 0.73 - 04/20/2021 [place] 1.18 mg/dL 3:38 AM [facility] GFR, Estimated >60 >60 04/20/2021 [place] mL/min/1.7 3:38 AM [facility] 3m2 Glucose 104 (H) 70 - 100 04/20/2021 [place] mg/dL 3:38 AM [facility] Comment: The given reference range is fo r the fasting state. Non-fasting reference range for glucose is 70 - 180 mg/dL. Specimen Anatomical Collection Method / Collection Time Recei bob Time (Source) Location / Volume Laterality Blood Venipuncture / 04/20/2021 3:09 04/20/2021 3:16 Unknown AM [facility] AM [facility] Jessica Easton MD LAB_1 Performing Organization Address City/State/ZIP Code Phon e [facility] [address] [place] [address] ECG 12-Lead STAT (04/20/2021 2:47 AM [facility]) athologist Signature Ventricular Rate 101 BPM [facility] Atrial Rate 101 BPM [facility] P-R Interval 224 ms [facility] QRS Duration 90 ms [facility] QT 362 ms [facility] QTc 469 ms [facility] P [place] 56 degrees [facility] R [place] 43 degrees [facility] T [place] 48 degrees [facility] Specimen (Source) Anatomical Collection Method Collection Time Re ceived Time Location / / Volume Laterality 04/20/2021 2:47 AM [facility] Narrative [facility] - 04/20/2021 8:33 AM [facility] Sinus tachycardia with 1st degree A-V block Possible Left atrial enlargement Nonspecific T wave abnormality Abnormal ECG Confirmed by Sher Cox ([id number]) on 1 06/21/2020 8:33:37 AM Procedure Note Sher Cox MD - 04/20/2021Format ting of this note might be different from the original. Sinus tachycardia with 1st degree A-V bl ock Possible Left atrial enlargement Nonspecific T wave abnormality Abnormal ECG Confirmed by Sher Cox ([id number]) on 1 06/21/2020 8:33:37 AM Jessica Easton MD EKG Performing Organization Address City/State/ZIP Code Phon e Number MUSE [facility] [address] [place] [address] documented in this encounter Visit Diagnoses Diagnosis SOB (shortness of breath) - Primary Shortness of breath Triage Assessment Note - Ashanti Ramirez RN - 04/20/2021 2:43 AM [facility]ST [facility] Emergency Department Triage Note Arrived to ED by: car. Transported to ED From: wheel chair. Accompanied by: girl friend. Chief Complaint: chest pain, fever Onset of Symptoms and Events Surrounding Chief Complaint: pt reports having chest pain, fever, shortness of breath after having cardiac surgery a month ago. He was seen Tuesday morning with no answers to the cause of his chest pain. COVID test done Tuesday with a negative result. Pt denies weakness, dizziness, headache, n/v, diarrhea Ashanti Ramirez RN 04/20/2021, 2:47 AM [facility] documented in this encounter Administered Medications Inactive Administered Medications - up to 3 most recent administrations Medication Order MAR Action Action Date Dose Rate Site sodium chloride 0.9% bolus 1,000 Started 04/20/2021 3:15 AM [facility] 1, 000 mL mL 1,000 mL, Intravenous, Administer over 1 Hours, ONCE, On Tue04/20/21 at 0330, For 1 dose documented in this encounter Active and Recently Administered Medications Times are shown in [facility]. Scheduled Medication Order 04/18/2021 04/19/2021 04/20/2021 sodium chloride 0.9% bolus 1,000 mL (COMPLETED) 0315 (Started - Provider: Daisy Winslow, RN)0407 (Infused - Provider: Daisy Winslow RN) 1,000 mL, Intravenous, Administer over 1 Hours, ONCE, On Tue04/20/21 at 0330, For 1 dose documented in this encounter Care Teams [employer] Relationship Specialty Start Date End Date Aravind Decker MD PCP - General Family Practice 01/14/14 [address] [place] [address] documented as of this encounter
--- OUTSIDE RECORDS SUMMARY | 2022-03-05 03:05 | XMS_ITS | Clinical Summary ---
:1945 External Reference #:[id number] Author Organization [facility] [place] [address] Care Team Providers Name Role Phone Kiersten Fitch MD Primary Care Provider Allergies Active Allergy Reactions Severity Noted Date Comments Meperidine Dyspnea, Edema, 07/08/2006 Facial swell ing, after Tachycardia hypo with Phene rgan Morphine Nausea And Vomiting 06/20/2007 Dronedarone Shortness Of Breath 04/29/2009 Promethazine Dyspnea, Edema, 07/08/2006 Facial swell ing, after Tachycardia hypo with Demer ol Pollen Extracts Other - Describe In 04/01/2016 Comment Field Sertraline Nausea Only 03/07/2017 Medications Medication Sig Dispensed Refills Start End Status Date Date cholecalciferol Take 2 capsules 0 11/17/19 Active (VITAMIN D) 2,000 by mouth once 12 unit capsule daily. ascorbic acid, Take 1 tablet by 0 04/17/20 Active vitamin C, (VITAMIN mouth once 20 C) 1,000 mg tablet daily. Zinc Gluconate 100 Take 50 mg by 0 12/23/19 Active mg tab mouth once 21 daily. nystatin [The details of 0 Acti ve (MYCOSTATIN) cream the medication are not available because there are pending changes by a home health clinician.] acetaminophen Take 500-1,000 0 A ctive (TYLENOL EXTRA mg by mouth STRGTH) 500 mg every 6 hours if tablet needed for Headache or Pain. Max acetaminophen dose: 4000mg in 24 hrs. aspirin chewable 81 Chew 1 Tablet 0 04/15/20 Active mg chewable (81 mg) by mouth 21 tabletIndications: once daily with S/P ascending a meal. aortic aneurysm repair hydrocortisone 1 % Apply topically 0 04/22/20 Active cream to affected 21 area(s) one time if needed. warfarin (COUMADIN) Patient not 0 04/27/20 Active 2.5 mg using this 21 tabletIndications: tablet dose at Persistent atrial this time. fibrillation (HC) warfarin (COUMADIN) Not using at 0 04/30/20 Active 3 mg this time 21 tabletIndications: Persistent atrial fibrillation (HC) miscellaneous As directed. 1 Each 0 06/26/19 Act [employer] Automated arm 22 (Blood Pressure blood pressure Cuff) cuff for home miscIndications: use, length of Acute diastolic CHF need 99 (congestive heart failure) (HC), HTN (hypertension) Desi-nohemi 8.6 mg TAKE 1 TABLET BY 60 Tablet 0 08/04/19 Active tabletIndications: MOUTH 2 TIMES 22 Constipation, acute DAILY IF NEEDED FOR CONSTIPATION. furosemide (LASIX) Take 1 Tablet 90 Tablet 3 09/11/19 Active 40 mg (40 mg) by mouth 22 tabletIndications: every morning. Acute diastolic CHF (congestive heart failure) (HC) ferrous gluconate Take 1 Tablet by 90 Tablet 3 10/15/19 Active 324 mg (37 mg iron) mouth once daily 22 tabletIndications: with a meal. Restless leg syndrome traMADoL (ULTRAM) Take 1 Tablet 20 Tablet 0 12/10/19 Active 50 mg (50 mg) by mouth 22 tabletIndications: 3 times daily if S/P ascending needed for Pain aortic aneurysm (Hold for repair sedation or confusion.). warfarin (COUMADIN) Take by mouth 2 100 Tablet 11 12/10/19 Active 1 mg mg (1 mg x 2) 22 tabletIndications: every Sun; 3 mg Persistent atrial (1 mg x 3) all fibrillation (HC), other days OR as Anticoagulation directed monitoring, INR range 2-3, Atypical atrial flutter (HC) SUMAtriptan Take 1 Tablet 10 Tablet 3 12/10/19 Acti ve (IMITREX) 50 mg (50 mg) by mouth 22 tabletIndications: every 2 hours if Migraine with aura, needed for not intractable, Migraine. Give without status at minimum 2hrs migrainosus apart. Max Dose: 200mg per 24hrs. metoprolol tartrate Take 1 Tablet 180 Tablet 3 01/01/20 Active (LOPRESSOR) 25 mg (25 mg) by mouth 22 tabletIndications: two times daily. Sinus tachycardia pregabalin (LYRICA) TAKE 1 CAPSULE 0 01/14/20 Active 100 mg capsule BY MOUTH THREE 22 TIMES A DAY pregabalin (LYRICA) TAKE 1 CAP 3 0 01/14/20 Active 25 mg capsule TIMES PER DAILY. 22 INCREASE TO 2 CAPS NIGHTTIME DOSING IF NEEDED AFTER 1 WEEK (TOTAL DOSING 125 MG AM AND AFTERNOON 150MG AT BEDTIME) Graduated For personal 2 Each 2 02/05/20 Active Compression use. Length: 22 StockingsIndication calf Strength: s: Swelling of 20-30 mmHg lower leg Circumference in cm: For calf: Ankle 26 cm, Calf 38cm, Ankle to calf length 40cm. iron,carbonyl-vitam Take 1 Tablet by 90 Tablet 0 02/05/20 Active in C (Vitron-C) 65 mouth once 22 mg iron- 125 mg daily. Delayed-Release tabletIndications: RLS (restless legs syndrome), Other iron deficiency anemia dofetilide Take 1 Capsule 180 Capsule 0 02/09/20 Ac tive (TIKOSYN) 250 mcg (250 mcg) by 22 capsuleIndications: mouth every 12 Persistent atrial hours. Pt is due fibrillation (HC) for labs/ekg in May 2022 amoxicillin-clavula 0 02/21/20 Active hanane 875-125 mg 22 tablet (AUGMENTIN) amoxicillin-clavula Take 1 Tablet by 14 Tablet 0 02/28/2008/31 Active hanane 875-125 mg mouth two times 22 022 tablet daily with meals (AUGMENTIN)Indicati for 7 days. ons: Abdominal wall abscess metoprolol Take 1 Tablet 90 Tablet 3 09/11/19 Disco ntinued succinate (Toprol (25 mg) by mouth 22 022 (Duplicate XL) 25 mg once daily. therapy Sustained-Release (E -cancel not tabletIndications: s ent)) Atypical atrial flutter (HC) gabapentin TAKE ONE TABLET 315 Tablet 1 10/15/19 Di scontinued (NEURONTIN) 600 mg BY MOUTH EVERY 22 022 (*Med tabletIndications: MORNING, ONE TAB ineffective) Pain AT NOON & 1 1/2 TABLET EVERY EVENING dofetilide Take 1 Capsule 180 Capsule 0 07/25/20 10/10/2 Di scontinued (TIKOSYN) 250 mcg (250 mcg) by 022 (Reorder capsuleIndications: mouth every 12 (E-cancel not Persistent atrial hours. Due for sent)) fibrillation (HC) labs and EKG: October 2021 Graduated For personal 2 Each 2 12/10/19 Discont inued Compression use. Length: 22 022 (Reor paco StockingsIndication calf Strength: (E-cancel not s: Swelling of 20-30 mmHg sent )) lower leg Circumference in cm: For calf: Ankle 26 cm, Calf 38cm, Ankle to calf length 40cm. mirtazapine Take 1 Tablet 60 Tablet 3 01/01/20 Disc ontinued (REMERON) 7.5 mg (7.5 mg) by ( *Patient tabletIndications: mouth at s tates no Anxiety, Insomnia, bedtime. l onger idiopathic taking/No t on sending facility l ist) Graduated For personal 2 Each 2 02/05/20 Discont inued Compression use. Length: 022 (Reor paco StockingsIndication calf Strength: (E-cancel not s: Swelling of 20-30 mmHg sent )) lower leg Circumference in cm: For calf: Ankle 26 cm, Calf 38cm, Ankle to calf length 40cm. Active Problems Problem Noted Date Thoracic aortic aneurysm, without rupture 06/04/2021 Thrombocytopenia, unspecified 06/04/2021 RLL pneumonia 05/19/2021 Pneumonia 04/22/2021 Adjustment disorder with anxious mood 04/16/2021 Benign paroxysmal positional vertigo 04/16/2021 History of COVID-19 (01/2020) 03/30/2021 S/P ascending aortic aneurysm repair 03/27/2021 Overview: Ascending aorta. Vascutek Terumo. Gelwea ve Gelatin Impregnatned Woven Vascular Prosthesis. Size: 34 mm straight. REF: [id number]. LOT: [id number]. SN: [id number]. EXP: 08/30/2023. Implanted by Dr. Saud Carter on 03/27/2021. Status post ligation of left atrial appendage 03/27/20 21 Generalized anxiety disorder 08/05/2020 Adjustment disorder with mixed anxiety and depressed m ood 11/18/2017 Kidney stone on right side 04/05/2016 Erectile dysfunction 04/09/2015 Epididymal cyst 04/09/2015 RLS (restless legs syndrome) 12/26/2014 Total knee replacement status 01/18/2014 Anticoagulation monitoring, INR range 2-3 05/17/2013 ACP (advance care planning) 10/20/2011 Overview: Patient has identified Health Care Agent (s): No Add Health Care Agents: No Patient has Advance Care Plan Documents (Health Care Directive, POLST): No, referral made to Social Work Services. Patient has identified Specific Treatmen t Preferences: Yes Specific Treatment Preferences: a.) Code Status: CPR/Attempt Resuscitation Atypical atrial flutter 10/19/2011 Dizziness 10/19/2011 Other malaise and fatigue 10/19/2011 Anemia, unspecified 10/19/2011 Pain medication agreement 10/12/2011 Overview: Controlled substance contract signed and scanned 06/08/11.Nallely Regalado Refill Renewal RN 02/15/2014 4:15 PM Encounter for long-term (current) use of other medicat ions 10/12/2011 Infected sebaceous cyst 11/08/2009 Spinal stenosis, lumbar region, without neurogenic cla udication 07/03/2008 Hypertension, Persistent atrial fibrillation Overview: -s/p EPS and complex afib ablation 11/29 w/ Dr. Good -s/p Repeat ablation 04/18/2010 Displacement of lumbar intervertebral disc without mye lopathy Overview: W/C DOI 05-23-06 Chest wall pain following surgery Anxiety and depression History of migraine Nausea Resolved Problems Problem Noted Date Resolved Date Acute respiratory failure with hypoxia 04/22/2021 0 07/20/2021 Atrial flutter 07/31/2014 11/14/2014 Hx. of Persistent Atrial Fibrillation 10/05/2013 Atrial fibrillation 08/01/2012 01/09/2014 Encounter for long-term (current) use of other medications 0 11/08/2011 01/09/2014 LONG-TERM USE ANTICOAGULANTS 12/10/2008 09/24/2009 Overview: INR Goal Range: 2.0 - 3.0 Chest pain, unspecified 07/09/2008 07/07/2021 Acute postoperative pain 04/16/2021 Acute encephalopathy 04/16/2021 Encounters Date Type Specialty Care Team Description 03/05/2022 Kiersten Valdez Abdominal Anton in MD Kelsey 03/03/2022 Phone Office Visit Bennett Yari Phone V isit (Pre-op [facility]) 03/01/2022 Office Visit Saud Carter Other (Office visit- MARIBELL Griffiths 10AM - CLINIC - Evaluate epicar dial lead wound site //PCP- Kiersten Fitch MD) 03/01/2022 Travel 02/26/2022 Office Visit [facility] Vis it; Trmt Plan 02/26/2022 Nurse Kiersten Nguyen Questions MD Kelsey 02/25/2022 Office Visit Ophelia Urias Abdominal Pain (Patient ANTON Hernandez was seen in ED on Tuesday for so re on upper left abdo men. Red, puss/disch arge coming out. War m to the touch, very isai nful when touched. P atient had surgery 11 months ago and leads w ere left in there. ) 02/25/2022 Telephone Kelly Garza NP 02/25/2022 Travel 02/24/2022 Nurse Kiersten Nguyen Follow Up MD Kelsey 02/23/2022 Office Visit Katiuska Lim, Derm Probl em (Went to DO ER on Tuesday for a painful skin in fection on stomach and was prescribed anti biotics ) 02/23/2022 Telephone Katiuska Lim, Questions (Message) DO 02/23/2022 Travel 02/20/2022 Orders Only Scanner <No scans attac hed> 02/20/2022 Orders Only Scanner <No scans attac hed> 02/19/2022 Travel 02/19/2022 Nurse Kiersten Nguyen Abdominal Pa in MD [place] 02/06/2022 Anticoagulation 1, [facility] 02/05/2022 Orders Only Giovani, <No scans attac hed> Beckie Morales NP 02/04/2022 Orders Only Lab, [facility] 02/04/2022 Office Visit Kiersten Fitch Follow Up (W as seen for MD Kelsey BP and heart ra te (tachycardia) a nd palpitations. Metoprolol incr ease but still says he i s having issues. ); Medi cation Management (Vignesh en off Gabapentin and put on lyrica and says it seems to be wor karsten well and sleepi ng better at night .) 02/04/2022 Travel 02/02/2022 Telephone Amy Hickman, gum scoring machine operator Management (Tikosyn/) 01/22/2022 Office Visit Jessica Clark, [facility] erapy [facility], 01/22/2022 Office Visit Jessica Clark, Trmt Plan [facility], 01/22/2022 Travel 12/31/2021 Orders Only Lab, [facility] 12/31/2021 Office Visit Sujatha Hyde Follow Up; Blood MD Kiersten Pressure; Palpi tations (Fast heart rat e, can hear thumping h eart beat in ears, c hest tightness, some shortness of br eath) 12/31/2021 Anticoagulation 1, [facility] 12/31/2021 Orders Only Sujatha Hyde <No scans a ttached> MD Kiersten 12/31/2021 Travel 12/30/2021 Telephone Kiersten Fitch Blood Pressu re MD Kelsey 12/14/2021 Patient Outreach Trey Campo [facility] (Care Guide Community Resource Naviga tion/) 12/09/2021 Office Visit Kiersten Fitch Atrial Fibri llation MD Kelsey (Had a little e pisode a couple days ago , lasted a couple hours at most and seemed ok a fter that. Also havi ng little sensatio ns in his chest once in a while.); Migrai ne (Will get floaters an d his vision will romario nge then the horrible he adache.) 12/09/2021 Travel from Last 3 Months Immunizations Name Administration Dates Next Due COVID-19 vaccine (atokore 06/24/2020 30mcg/0.3mL) PF, MDV Influenza RIV4 (Age 18+ Years) 01/24/2020 PRESERV FREE Influenza Virus, Unspecified 02/16/2018, 04/05/2013 Influenza, High-dose Inactivated 02/16/2018, 01/27/2017, , 01/30/2014 Influenza, IIV3 (Age >=3 years) 04/05/2013 Influenza, IIV4 02/26/2019, 01/23/2016 Influenza, IIV4 (=>6mos) MDV 01/16/2017 Pneumococcal Poly,23-Valent 04/05/2013, 06/02/2012 (Pneumovax) Pneumococcal conj 13-Valent (Prevnar 01/20/2015 13) Td (Age >=7 Years) 01/30/2005, 05/06/2004 Tdap 06/16/2018 Family History Medical History Relation Name Comments Heart Disease Brother 1 Cancer-prostate Brother 2 Unknown Father emphysema Genetic Other 1 No family histor y of premature atherosclerotic heart disease. Genetic Other 2 No family histor y of premature atherosclerotic heart disease or diabe cony. Other Other 3 No known family hx of anesthesia rxn or bleeding disorder Other Sister after blood clot following TKA Relation Name Status Comments Brother 1 Brother 2 Father Mother Other 1 Other 2 Other 3 Sister Social History Tobacco Use Types Packs/Day Years Used Date Former Smoker 0.5 12 01/13/1956 - 1 06/02/1967 Smokeless Tobacco: Never Used Tobacco Cessation: Counseling Given: Yes Comments: Quit smokin Alcohol Use Standard Drinks/Week Comments No 0 (1 standard drink = 0.6 oz pure alcoho l) Sex Assigned at Date Recorded Not on file COVID-19 Exposure Response Date Recorded In the last 10 days, have you been in contact with No / Unsu re 03/01/2022 9:42 AM CDT someone who was confirmed or suspected to have Coronavirus/COVID-19? Obstetrics History Last Filed Vital Signs Vital Sign Reading Time Taken Comments Blood Pressure 122/76 03/01/2022 9:51 AM CDT Pulse 82 03/01/2022 9:51 AM CDT Temperature 36.4 ??C (97.5 ??F) 02/25/2022 9:07 AM CDT Respiratory Rate 16 08/07/2021 8:12 AM CDT Oxygen Saturation 99% 03/01/2022 9:51 AM CDT Inhaled Oxygen Concentration - - Weight 77.1 kg (170 lb) 03/01/2022 9:51 AM CDT Height 181.6 cm (5' 11.5) 03/01/2022 9:51 AM CDT Body Mass Index 23.38 03/01/2022 9:51 AM CDT Plan of Treatment Upcoming Encounters Date Type Specialty Care Team Description 03/05/2022 Preop Visit Priti Carias PA [address] [place], [place] [phone] (Wo rk) 03/08/2022 Office Visit Opal Ybarra LICSW [address], [place] [address] (Wo rk) 03/09/2022 Office Visit Vinnie De Luna MD [address] [phone] (Wo rk) 03/09/2022 Hospital Encounter Saud Carter MBBS [address] [phone] (Wo rk) 03/09/2022 Surgery Saud Carter REMOVAL EPICA MARIBELL Gil PACEMAKER LEAD W/ABCESS [address] [phone] (Wo rk) 03/11/2022 Office Visit [facility] Fitch [facility] [address] [facility] [phone] (Wo rk) 03/19/2022 Office Visit Jessica Clark PsyD, LP [address] [place], [place] [address] (Wo rk) Scheduled Procedures Name Priority Associated Diagnoses Date/Time REMOVAL PACEMAKER LEAD pacing lead abscess 03/09 3:22 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 Health Maintenance Due Date Last Done Comments Zoster (shingles) series for age 0901/13/1996 50+ (1 of 2) COVID-19 vaccine series (2 - 07/15/2020 06/24/2020 Pfizer series) Influenza for age 65+ 12/31/2021 01/24/2020, 02/26/2019, 02/16/2018, Additional history exists Medicare Wellness for age 65+ 06/26/2022 06/26/2021, 2017 BMI (ht and wt on same day) for 03/01/2023 03/01/2022, 08/30, age 18+ 08/07/2021, Additional history exists Depression screening for age 12+ 03/01/2023 03/01/2022, , 02/26/2022, Additional history exists Tetanus booster 06/16/2028 06/16/2018, 01/30/2005, 05/06/2004 Pneumococcal series for age 65+ Completed 01/20/2015, 08/2012, 06/02/2012 Hepatitis C screening for age Completed 08/04/2016 18-79 Tdap Completed 06/16/2018 Medical Devices Implanted Type Area Car Pre Cooler Device Shelf Model / Identifier Expiration Serial / Lot Date Graft Vascular Gelweave 34mm X 30cm N/A: [employer] 08/30/2023 [id number] / Implanted: Qty: 1 on 03/27/2021 by Saud Carter MBBS at [facility] [employer] 20 [id number] / [id number] Procedures Procedure Name Priority Date/Time Associated Diagnosis Comme nts SODIUM,ISTAT Routine 02/25/2022 9:42 Abdominal wall Results fo r this AM CDT abscess procedure are i n the results section. POTASSIUM,ISTAT Routine 02/25/2022 9:42 Abdominal wall Results for this AM CDT abscess procedure are i n the results section. CREATININE,ISTAT Routine 02/25/2022 9:38 Abdominal wall Result s for this AM CDT abscess procedure are i n the results section. CBC WITH AUTO Routine 02/25/2022 9:33 Abdominal wall Results f or this DIFFERENTIAL AM CDT abscess procedure are i n the results section. CBC WITH AUTO Routine 02/25/2022 9:33 Abdominal wall Results f or this DIFFERENTIAL AM CDT abscess procedure are i n the results section. SCAN-CT INTERPRETATION 02/20/2022 12:00 AM CDT SCAN-ULTRASOUND REPORT 02/20/2022 12:00 R esults for this AM CDT procedure are i n the results section. EKG 12 LEAD Routine 02/05/2022 7:44 Persistent atrial AM CDT fibrillation (HC) POTASSIUM Routine 02/04/2022 8:42 Persistent atrial Results for this AM CDT fibrillation (HC) procedure are in the results section. CREATININE Routine 02/04/2022 8:42 Persistent atrial Results for this AM CDT fibrillation (HC) procedure are in the results section. BUN Routine 02/04/2022 8:42 Persistent atrial Results for this AM CDT fibrillation (HC) procedure are in the results section. PROTIME-INR STAT 02/04/2022 8:42 Persistent atrial Results for this AM CDT fibrillation (HC ) procedure are in Anticoagulation the results monitoring, INR section. range 2-3 Atypical atrial flutter (HC) EKG 12 LEAD Routine 12/31/2021 2:00 Palpitations PM CDT ID READING EKG - NO Routine 12/31/2021 1:59 Palpitations CHARGE, COMP ONLY PM CDT PROTIME-INR STAT 12/31/2021 10:23 Persistent atrial Result s for this AM CDT fibrillation (HC ) procedure are in Anticoagulation the results monitoring, INR section. range 2-3 Atypical atrial flutter (HC) CBC WITH AUTO STAT 12/31/2021 10:23 Palpitations Results fo r this DIFFERENTIAL AM CDT procedure are i n the results section. BASIC METABOLIC PANEL Routine 12/31/2021 10:23 Atypical atrial Results for this AM CDT flutter (HC) procedure are i n the results section. CBC WITH AUTO STAT 12/31/2021 10:23 Palpitations Results fo r this DIFFERENTIAL AM CDT procedure are i n the results section. from Last 3 Months Results SODIUM,ISTAT (02/25/2022 9:42 AM CDT) P athologist Signature SODIUM, POCT 143 135 - 145 02/25/2022 [facility] mmol/L 9:46 AM CDT [facility] Specimen Anatomical Collection Method Collection Time Receive d Time (Source) Location / / Volume Laterality Blood BLOOD SPECIMEN / 02/25/2022 9:42 AM 02/25 9:46 Unknown CDT AM CDT Ophelia ROSAS LABORATORY Performing Organization Address City/[facility]/ZIP Code Phon e Number [facility] [address] [place] [address] POTASSIUM,ISTAT (02/25/2022 9:42 AM CDT) athologist Signature POTASSIUM, 4.7 3.5 - 5.0 02/25/2022 [facility] POCT mmol/L 9:46 AM CDT [facility] Specimen Anatomical Collection Method Collection Time Receive d Time (Source) Location / / Volume Laterality Blood BLOOD SPECIMEN / 02/25/2022 9:42 AM 02/25 9:46 Unknown CDT AM CDT Ophelia ROSAS CHEMISTRY Performing Organization Address City/[facility]/ZIP Code Phon e Number [facility] [address] [place] [address] (ABNORMAL) CREATININE,ISTAT (02/25/2022 9:38 AM CDT) athologist Signature CREATININE, 1.00 0.57 - 02/25/2022 [facility] POCT 1.11 mg/dL 9:46 AM CDT [facility] Comment: Caution: Patients taking Hydrox yurea have falsely increased iStat Creatinine results. Verify creatinine results order ing a Creatinine (25939.2) eGFR 78 (L) >90 mL/min/1.73m2 02/25/2022 9:46 AM CDT [facility] Comment: As of 2021, eGFR is calcu lated by the CKD-EPI creatinine equation without race adjustment. eGFR can be inf luenced by muscle mass, exercise, and diet. The reported eGFR is an estimation only and is only applicable if the renal function is stable. Specimen Anatomical Collection Method Collection Time Receive d Time (Source) Location / / Volume Laterality Blood BLOOD SPECIMEN / 02/25/2022 9:38 AM 02/25 9:46 Unknown CDT AM CDT Ophelia ROSAS CHEMISTRY Performing Organization Address City/State/ZIP Code Phon e Number [facility] [address] [place] [address] (ABNORMAL) CBC WITH AUTO DIFFERENTIAL (02/25/2022 9:33 AM CDT)Only the most recent of2 resultswithin the time period is included. [facility] Method Time Signature WHITE BLOOD 6.0 4.5 - 02/25/2022 [facility] COUNT 11.0 9:41 AM CDT [facility] CLINIC mm RED BLOOD COUNT 4.37 4.30 - 02/25/2022 [facility] 5.90 9:41 AM T [facility] CLINIC HEMOGLOBIN 13.4 (L) 13.5 - 02/25/2022 [facility] 17.5 g/dL 9:41 AM [facility] HEMATOCRIT 41.1 37.0 - 02/25/2022 [facility] 53.0 % 9:41 AM [facility] MCV 94 80 - 100 02/25/2022 [facility] fL 9:41 AM [facility] MCH 30.7 26.0 - 02/25/2022 [facility] 34.0 pg 9:41 AM [facility] MCHC 32.6 32.0 - 02/25/2022 [facility] 36.0 g/dL 9:41 AM [facility] RDW 13.8 11.5 - 02/25/2022 [facility] 15.5 % 9:41 AM [facility] PLATELET COUNT 181 140 - 440 [facility] MPV 9.3 6.5 - 02/25/2022 [facility] 11.0 fL 9:41 AM [facility] % NEUT 67.0 % 02/25/2022 [facility] 9:41 AM [facility] % LYMPH 20.6 % 02/25/2022 [facility] 9:41 AM [facility] % MONO 9.9 % 02/25/2022 [facility] 9:41 AM CDT [facility] % EOS 2.3 % 02/25/2022 [facility] 9:41 AM CDT [facility] % BASO 0.2 % 02/25/2022 [facility] 9:41 AM CDT [facility] ABSOLUTE 4.0 1.7 - 7.0 02/25/2022 [facility] NEUTROPHILS thou/cu 9:41 AM CDT [facility] CLINIC ABSOLUTE 1.2 0.9 - 2.9 02/25/2022 [facility] LYMPHOCYTES thou/cu 9:41 AM CDT [facility] CLINIC ABSOLUTE 0.6 <0.9 02/25/2022 [facility] MONOCYTES thou/cu 9:41 AM CDT [facility] CLINIC ABSOLUTE 0.1 <0.5 02/25/2022 [facility] EOSINOPHILS thou/cu 9:41 AM CDT [facility] ABSOLUTE 0.0 <0.3 02/25/2022 [facility] BASOPHILS thou/cu 9:41 AM CDT [facility] CLINIC Specimen Anatomical Collection Method / Collection Time Recei bob Time (Source) Location / Volume Laterality Blood BLOOD SPECIMEN / Venipuncture / 02/25/2022 9:33 2021 9:37 Unknown Unknown AM CDT AM CDT Ophelia ROSAS HEMATOLOGY Performing Organization Address City/State/ZIP Code Phon e Number [facility] [address] [place] [address] SCAN-ULTRASOUND REPORT (02/20/2022 12:00 AM CDT) Narrative This result has an attachment that is no t available. Scanner OTHER SCAN-CT INTERPRETATION (02/20/2022 12:00 AM CDT) Narrative This result has an attachment that is no t available. Scanner OTHER EKG 12 LEAD (02/05/2022 7:44 AM CDT)Only the most recent of2 resultswithin the time period is included. Narrative This result has an attachment that is no t available. Beckie Matute [employer]QUIPMENT MECHANIC EKG ORD BUN (02/04/2022 8:42 AM CDT) P athologist Signature BUN 21 8 - 02/05/2022 [facility] mg/dL 8:48 AM CDT [facility] Specimen Anatomical Collection Method / Collection Time Recei bob Time (Source) Location / Volume Laterality Blood BLOOD SPECIMEN / Venipuncture / 02/04/2022 8:42 2021 8:42 Unknown Unknown AM CDT AM CDT Beckie Matute NP CHEMISTRY Performing Organization Address City/[facility]/ZIP [facility] Phon e Number [facility] [address] [place] [id number] [facility] [address] LABORATORY POTASSIUM (02/04/2022 8:42 AM CDT) athologist Signature POTASSIUM 3.9 3.5 - 5.0 02/05/2022 [facility] mmol/L 8:43 AM CDT [facility] Specimen Anatomical Collection Method / Collection Time Recei bob Time (Source) Location / Volume Laterality Blood BLOOD SPECIMEN / Venipuncture / 02/04/2022 8:42 2021 8:42 Unknown Unknown AM CDT AM CDT Beckie Matute NP CHEMISTRY Performing Organization Address City/State/[facility] Phon e Number [facility] [address] [place] [address] LABORATORY-CENTRAL 2000 LABORATORY (ABNORMAL) CREATININE (02/04/2022 8:42 AM CDT) athologist Signature CREATININE 0.85 0.72 - 1.25 02/05/2022 [facility] mg/dL 8:47 AM CDT LABORATORY-CENT RAL LABORATORY eGFR 90 (L) >90 02/05/2022 [facility] mL/min/1.73 8:47 AM CDT LABORATORY-CENT m2 RAL LABORATORY Comment: As of 2021, eGFR is calcu lated by the CKD-EPI creatinine equation without race adjustment. eGFR can be inf luenced by muscle mass, exercise, and diet. The reported eGFR is an estimation only and is only applicable if the renal function is stable. Specimen Anatomical Collection Method / Collection Time Recei bob Time (Source) Location / Volume Laterality Blood BLOOD SPECIMEN / Venipuncture / 02/04/2022 8:42 2021 8:42 Unknown Unknown AM CDT AM CDT Beckie Matute NP CHEMISTRY Performing Organization Address [facility] Phon e Number [id number] [address] [place] [phone] LABORATORY-CENTRAL 2000 LABORATORY (ABNORMAL) PROTIME-INR (02/04/2022 8:42 AM CDT)Only the most recent of2 results within the time period is included. athologist Signature INR 2.1 (H) <1.3 02/04/2022 [facility] 2:18 PM CDT LABORATORY-CENT [facility] LABORATORY PROTIME 22.9 (H) 12.0 - 13.8 02/04/2022 [facility] sec 2:18 PM CDT LABORATORY-CENT [facility] LABORATORY Specimen Anatomical Collection Method / Collection Time Recei bob Time (Source) Location / Volume Laterality Blood BLOOD SPECIMEN / Venipuncture / 02/04/2022 8:42 2021 8:42 Unknown Unknown AM CDT AM CDT Narrative [facility] LABORATORY-CENTRAL LABORAT ORY - 02/04/2022 2:18 PM CDT ?Therapeutic Range 2.0-3.0 for most anticoagulated patients 2.5-3.5 or 4.0 for high risk patients The INR is only used for patients on sta ble oral anticoagulant therapy. It makes no significant contribution to the diagnosis or treatment of patients whose Protime is prolonged f or other reasons. INR results are increased when heparin l evels exceed 1.0 U/mL, which corresponds to an aPTT >125 seconds if the patient is on UFH. Kiersten Fitch MD HEMATOLOGY Performing Organization Address [facility] Phon e Number Compliance [id number] [place] [address] LABORATORY-CENTRAL 2000 LABORATORY ID READING EKG - NO CHARGE, COMP ONLY (12/31/2021 1:59 PM CDT) Sujatha Hyde MD PB - PROVIDER READINGS (ABNORMAL) BASIC METABOLIC PANEL (12/31/2021 10:23 AM CDT) athologist Signature SODIUM 140 135 - 145 12/31/2021 [facility] mmol/L 4:52 PM CDT LABORATORY-[facility]LENE TRAL LABORATORY POTASSIUM 4.1 3.5 - 5.0 12/31/2021 [facility] mmol/L 4:52 PM CDT LABORATORY-[facility] TRAL LABORATORY CHLORIDE 105 98 - 110 12/31/2021 [facility] mmol/L 4:52 PM CDT LABORATORY-[facility] TRAL LABORATORY CO2,TOTAL 26 21 - 31 12/31/2021 [facility] mmol/L 4:52 PM CDT LABORATORY-[facility] TRAL LABORATORY ANION GAP 9 5 - 18 12/31/2021 [facility] 4:52 PM CDT LABORATORY-[facility] TRAL LABORATORY GLUCOSE 90 65 - 100 12/31/2021 [facility] mg/dL 4:52 PM CDT LABORATORY-[facility] TRAL LABORATORY CALCIUM 9.2 8.5 - 10.5 12/31/2021 [facility] mg/dL 4:52 PM CDT LABORATORY-[facility] TRAL LABORATORY BUN 21 8 - 25 12/31/2021 [facility] mg/dL 4:52 PM CDT LABORATORY-[facility] TRAL LABORATORY CREATININE 0.89 0.72 - 12/31/2021 [facility] 1.25 mg/dL 4:52 PM CDT LABORATORY-[facility] TRAL LABORATORY BUN/CREAT RATIO 24 (H) 10 - 20 12/31/2021 [facility] 4:52 PM CDT LABORATORY-[facility] TRAL LABORATORY eGFR 89 (L) >90 12/31/2021 [facility] mL/min/1.7 4:52 PM CDT LABORATORY-SELENE 3m2 TRAL LABORATORY Comment: As of 2021, eGFR is calcu lated by the CKD-EPI creatinine equation without race adjustment. eGFR can be inf luenced by muscle mass, exercise, and diet. The reported eGFR is an estimation only and is only applicable if the renal function is stable. Specimen Anatomical Collection Method / Collection Time Recei bob Time (Source) Location / Volume Laterality Blood BLOOD SPECIMEN / Venipuncture / 12/31/2021 10:23 12/31 Unknown Unknown AM CDT 10:25 AM CDT Sujatha Hyde MD CHEMISTRY Performing Organization Address City/State/ZIP Code Phon e Number [facility] [address] [place] [address] LABORATORY-CENTRAL 2000 LABORATORY from Last 3 Months Insurance Payer Benefit Plan Subscriber ID Effective Phone Address Typ e / Group Dates WC WORKERS WC WORKERS [id number] 2006-Pres [phone] [address] [place] [address] [employer] [id number] 2008-Prese [phone] [address] VEHICLE INS nt [address] [place] [address] MEDICARE PART MEDICARE PART [id number] 2010-Prese ATT N: CLAIMS B - HB USE B HB ONLY nt [address] [place] [address] MEDICARE PART MEDICARE PART [id number] 2010-Prese ATT N: CLAIMS A - HB USE A HB ONLY nt [address] [place] [address] MEDICARE - PB MEDICARE PB [id number] 2010-Prese ATTN: CLAIMS USE ONLY ONLY nt [address] [place] [address] MEDICA MA MEDICA CHOICE [id number] 2017-Pres [address] [address] [place] [address] MEDICARE PPS HC MEDICARE [id number] 2010-Prese [address] [place] [address] MEDICA MEDICA CHOICE [id number] 2013-Prese [address] [address] [place] [address] [address] [place] [address] [employer] English Personal/Family Self 1945 [address] ([address]) [address] [place] [address] [employer] English Personal/Family Self 1945 [address] (Home) [address] [place] [address] [employer] Workers Comp Self [address] (Home) [place] [address] [employer] Motor Vehicle Self [address] [place] (Home) [place] [phone] (Work) Advance Directives Documents on File Type Date Recorded Patient Gem Cutter Explanati on Healthcare Directive 08/12/2021 4:16 PM HEALTH [facility] RE DIRECTIVE, 08/16/21 Latest Code Status on File Code Status Date Activated Date Inactivated Comments Full Code 04/22/2021 11:40 PM 04/26/2021 6:30 PM Code Status Discussion: Reviewed Preferences Full Code 03/28/2021 7:14 AM 04/14/2021 4:51 PM Code Status Discussion: Reviewed Preferences Full Code 03/27/2021 6:14 AM 03/28/2021 7:14 AM Code Status Discussion: Unable to Assess Preferences, Provid er to review later Full Code 10/19/2011 2:55 PM 10/23/2011 6:43 PM Full Code 06/19/2009 10:22 AM 06/20/2009 4:19 PM Care Teams Automatic 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
--- OUTSIDE RECORDS SUMMARY | 2022-03-05 03:05 | XMS_ITS | Encounter Summary ---
:1945 Author Organization [facility] Address [address] [place] [address] Care Team Providers Name Role Phone Aravind Decker MD Primary Care Provider Reason for Referral Procedure/Equipment (Routine) - Closed Specialty Diagnoses / Procedures Referred By Contact Refer red To Contact Papito Araujo MD CT Angio Chest Abd Pel W/WO [address] [facility] [place] [place] [address] Referral ID Status Reason Start Date Expiration Date Visits Requ ested Visits Authorized [id number] Closed 04/15/2021 07/15/2022 1 1 KROOM COORDINATOR Procedure/Equipment (Routine) - Closed Specialty Diagnoses / Procedures Referred By Contact Refer red To Contact Procedures Papito Jewell MD POC US BASIC CARDIAC [address] [place] [address] Referral ID Status Reason Start Date Expiration Date Visits Requ ested Visits Authorized [id number] Closed 04/15/2021 07/15/2022 1 1 KROOM COORDINATOR Procedure/Equipment (Routine) - Incomplete Specialty Diagnoses / Procedures Referred By Contact Refer red To Contact Procedures Papito Jewell MD XR Chest 2 Views [address] [place] [address] Referral ID Status Reason Start Date Expiration Date Visits V isits Requested Authorized [id number] Incomplete 04/15/2021 07/15/2022 1 1 KROOM COORDINATOR Reason for Visit Reason Comments Chest Pain Encounter Details Date Type Department Care Team Description 04/15/2021 Emergency [facility] FantaPapito boo Nemesio t-sided chest pain (Primary Dx); Emergency Department Elevated troponin; [address] SOB (shortness of breath) [place] [address] [place], [place] [phone] (Wo rk) Social History Tobacco Use Types Packs/Day Years Used Date Smoking Tobacco: Former Cigarettes Quit : 05/02/1965 Alcohol Use Standard Drinks/Week Comments No 0 (1 standard drink = 0.6 oz pure alcoho l) QUIT 14 YEARS AGO Sex Assigned at Date Recorded Not on file documented as of this encounter Last Filed Vital Signs Vital Sign Reading Time Taken Comments Blood Pressure 108/51 04/15/2021 7:05 AM STOCKROOM COORDINATOR Pulse 90 04/15/2021 7:05 AM STOCKROOM COORDINATOR Temperature 37 ??C (98.6 ??F) 04/15/2021 5:05 AM STOCKROOM COORDINATOR Respiratory Rate 24 04/15/2021 7:05 AM STOCKROOM COORDINATOR Oxygen Saturation 95% 04/15/2021 7:05 AM STOCKROOM COORDINATOR Inhaled Oxygen Concentration - - Weight - - Height - - Body Mass Index - - documented in this encounter Discharge Instructions Discharge InstructionsTiffany Rodriguez MD - 04/15/2021 11:06 AM STOCKROOM COORDINATOR I would like you to follow-up with your Cardiothoracic surgeon in 2 weeks time. Monitor for fevers of 100.4 or greater at home. If you continue to have fevers, productive sputum and or worsening chest pain or shortness of breath return to the ED immediately. We will call you if your blood cultures grow any bacteria. KROOM COORDINATOR documented in this encounter Medications at Time of [...] & Saturdays documented as of this encounter Procedure Notes Papito Jewell MD - 04/15/2021 6:59 AM CSTAssociated Order(s): POC US BASIC CARDIAC [facility] Point of Care Ultrasound Interpretation POC US BASIC CARDIAC Date/Time: 04/15/2021 6:59 AM Performed by: Papito Jewell MD Authorized by: Papito Jewell MD Point of Care Ultrasound: Basic Cardiac Indications: Chest Pain Window: Adequate for full imaging and interpretation Findings/ Impression (Within the context of limited [id number] ultrasound): Good Global Function and No Pericardial Effusion KROOM COORDINATOR documented in this encounter ED Notes Karie Zavala RN - 04/15/2021 11:20 AM CST [facility] ED Nursing Discharge Note Patient discharged: to Home. Patient accompanied by: friend. Transported by: Walked Belongings were taken home by patient: Yes Work/School Slip given: N/A Discharge instructions given and explained to patient: Yes Discharge prescriptions explained to patient: No Patient verbalized understanding. Yes Patient level of pain on discharge: Patients condition on discharge related to chief complaint and treatment in ED: Pt to home with his friend. Holds documented by nursing during this visit, please review chart for most current hold status: No orders of the defined types were placed in this encounter. ---End of Report--- KROOM COORDINATOR Tiffany Rodriguez MD - 04/15/2021 5:31 AM CST [facility] Emergency Medicine Visit Note Chief Complaint: Chest Pain HPI Cornell English is a 76 y.o. old male with history of atrial fibrillation on warfarin, HTN, and recent prolonged hospitalization at [facility] for ascending aortic aneurysm repair on who presents for evaluation of right-sided chest pain and discomfort with low-grade fever. Patient states he was discharged from the hospital yesterday. Was sitting at home around 5:00 p.m. he developed sharp right-sided chest pain and discomfort with shortness of breath. Pain has progressed since that time any still feel short of breath. Chest pain worse with movement. Also reports low-grade fevers at home. He did take some Tylenol for pain relief and discomfort with limited relief of symptoms. Has some tramadol at home as well, but did not use it. He does report a slight, nonproductive cough. His hospitalization was complicated by recurrent right-sided pneumothorax and pneumonia. Chest tube removal April 11. He was feeling fine upon discharge from the hospital yesterday. He denies any nausea or vomiting. No diaphoresis. He is staying with his significant other. Patient and significant other tell me that the patient hashad episodes where he sees red wavy lines on the recinos when he looks at them and during his hospitalization noticed a dog running around a truck in a painting. He denies hearing voices. He has no knownhistory of schizophrenia or psychosis. He does admit he has not been sleeping well. Recent D/c Summary He is now s/p ascending aortic aneurysm replacement, PVI, and LAAL on 03/27/[address] Carter. Intra-operative course was unremarkable and he was brought to the CVICU in stable condition. Extubated POD 0, retintubated shortly thereafter due to significant pressor requirements and ALEX with LA compression concerning for mediastinal hematoma. He returned to the OR POD1 for chest washout and evacuation ofclot and again extubated. R sided pneumothorax noted, bedside CT placed POD 2. CXR with new infiltrate, COVID-19 negative, Procalcitonin elevated. Started on empiric Vancomycin + Cefepime for possible pneumonia POD 2. Sputum cultures positive for Klebsiella and Pseudomonas. Vasoactive medications weaned as tolerated and transferred to Telemetry POD 3. Post-op nausea, hallucinations, and pain. CT withcontinuous airleak until POD 7. Chest tubes removed in step-mahan fashion with stable appearance of trace apical pneumothorax after all chest tubes out. Morning of POD 9, with increased shortness of breath. Repeat CXR shows recurrence of moderate-sized pneumothorax on Right. To IR for CT-guided chest tube on right 04/05. Thoracic consult 04/16. Clamp trial 04/10 with subsequent removal 04/11 without recurrence of pneumothorax. Mr. English has otherwise recovered sufficiently to be discharged to home with home health care today, 04/14/2021, on post-operative day number 17 for further convalescence. His incisions are healing well with no signs or symptoms of infection. His bowels have moved sufficiently and he is tolerating diet and activity, ambulating and transferring independently. He is currently afebrile with stable vital signs as below and his weight is stable and trending well to baseline. In addition to the above, I have personally reviewed any medications, allergies, problem list, medical history, surgical history and social history in the health record as of this visit. Review of Systems A complete review of systems was performed and is otherwise negative. Triage Vitals [04/15/21 0505] Temp 98.6 ??F (37 ??C) Temp src Oral Pulse (!) 104 Resp 21 BP 115/61 SpO2 94 % Physical Exam General: Alert, mildly uncomfortable appearing, no apparent distress. Eyes: Conjunctivae normal, sclera anicteric. Neck: Full ROM. Respiratory: Lungs clear to auscultation bilaterally. No wheezing, crackles or ronchi. Normal work of breathing. Cardiovascular: Heart regular rate and rhythm. No murmurs, gallops or rubs noted. Strong palpable distal pulses, good capillary refill. GI: Abdomen soft, nontender, nondistended, no guarding or peritonitis. No masses or organomegaly noted. Musculoskeletal: Pain to palpation of the anterior and right lateral chest without crepitance. Normal appearing extremities, full ROM throughout, no calf tenderness, no edema. Neurological: Alert and oriented x 3. CN II-XII grossly intact. Strength 5/5 throughout. No gross neurological deficits. Skin: Incision sites well healed, clean, dry without induration. Dry without any obvious signs of rash, infection or breakdown. Psychiatric: Engaged in coversation, does not appear anxious or withdrawn. MDM: Patient here for evaluation of anterior right-sided chest pain and discomfort following prolonged hospitalization for ascending aortic aneurysm repair. Differential diagnosis includes: angina, ACS, PE,PNA, PTX, pericarditis, esophageal rupture, tamponade, arrhythmia, bronchitis, GERD/PUD, musculoskeletal pain and anxiety. Will obtain EKG, cardiac enzymes and chest x-ray to further assess. PE seems less likely given patient currently on Lovenox/Warfarin bridge. Regarding the patient's visual disturbances, these may be hallucinations, though patient is noted to be otherwise thinking clearly during these episodes which is odd. Papito Jewell MD ED Course as of 04/15/21 1559 TueApr 15, 2021 0529 EKG obtained shows sinus tachycardia with rate 107 beats per minute. Normal intervals, normal axis. No ST or T-wave changes concerning for acute ischemia or infarction. [ESTEBAN] 0622 XR Chest 2 Views Heart size within normal limits status post sternotomy. Left atrial appendage clip in place. Left lung is clear. Airspace infiltrate in the right mid and lower lung zones consistent with pneumonia. Small right pleural effusion with suggestion of rounded lucencies peripherally which could represent locules of gas. Recommend contrast-enhanced CT of the chest to evaluate for potential underlying empyemaor other manifestation of infection. No visible pneumothorax. [ESTEBAN] 0624 Does have known stable loculated right pleural effusion based on recent x- ray imaging from [facility]. [ESTEBAN] 0624 INR(!): 1.5 Subtherapeutic, but patient still taking Lovenox. [ESTEBAN] 0625 WBC(!): 11.5 Mild elevation, was elevated to 11.8 yesterday upon discharge. [ESTEBAN] 0638 Procalcitonin: 0.11 Makes ongoing bacterial pneumonia unlikely. [ESTEBAN] 0638 Troponin I(!): 0.14 Suspect chronic demand ischemia. Will require delta troponin. Will also perform bedside ultrasound to evaluate for any evidence of pericardial effusion. [ESTEBAN] 0707 Patient will be signed out to Dr. Rodriguez for f/u CTA chest and repeat troponin. [ESTEBAN] 0709 Sign out received, assumed care at this time. Ascending aortic repair, post-op PTX s/p chest tube x2, and pneumonia. R sided chest pain. CXR stable showing pleural effusion. CT chest pending. Troponin 0.14. Repeat troponin 8:30 AM. On lovenox bridging to coumadin. Received Lovenox per 30 min ago. [JOSE] 5923 CT Aorta IMPRESSION: 1. ??Hydropneumothorax on the right. This may be infected. 2. ??Multiple pulmonary nodules bilaterally, right worse than left, with at least one of these nodules being cavitary at the right lung base. No prior images are available for comparison, however, a prior CT report in Care Everywhere from 12/11/2020 demonstrated no evidence of nodules. Given that these are multiple and new and at least one is cavitary, the possibility of septic emboli is raised. Follow-up to resolution is recommended. 3. ??Aneurysmal dilatation of the ascending aorta with irregularity in the configuration of the ascending aorta most consistent with patient's known recent aortic surgical repair. No mediastinal hemorrhage or mediastinal abscess. ?? [JOSE] 0854 Troponin I(!): 0.12 Troponin is trending downward from 0.14. Difficult to know whether this was elevated since the surgery or all of the chest tubes and trending downward verses trending downward from acute shortness of breath yesterday. After discussion with the patient, he has been having intermittent right-sided chest pain especially in the area of the chest tubes since his surgery. It is worse with inspiration at times. He reports that he did not come in because of the chest pain he came in due to the shortness of breath he had. It has now resolved. He has had the pleural effusion and they have known about it. His procalcitonin is not elevated. He is not currently on antibiotics and I presume that means his fluidwas not infected, but I cannot directly review culture results from the fluid. He did complete a course of antibiotics for probable pneumonia. [JOSE] 1023 ALEX Post: S/P ascending aorta replacement. ??Preserved biventricular function. ?? AI is now moderate with an eccentric jet that is in the center of the valve and between the left and non coronary cusps. ??No other major valvular changes. ??Aorta is intact. Surgeon aware of findings. Papito Patten, DO Electronically signed by Papito Patten, DO ? Specimen Collected: - Last Resulted: 03/27/21 ??8:35 AM [JOSE] 1024 12/20 CTA 1. Non-obstructive coronary artery disease - Ca score 47 (25%) - no severe stenosis to account for symptoms - medical and risk factor management recommended 2. Dilated ascending aorta at [id number] with an elevated area:height index of 10.4 cm2/m. Please consider surgical referral. 3. 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 3. Normal appearing pericardium. 4. Please see separate radiology report. [JOSE] 1051 Dr. Carter- We discussed findigns, troponin elevation, EKG and Chest CT findings. Not concerned that troponin is related to NC. SOB, CT in. Loculated effusion. Have him follow up in 2 weeks as oppose to 4 weeks. [JOSE] 1052 CT Angio Chest Abd Pel W/WO IV Cont Dissection [JOSE] ED Course User Index [JOSE] Tiffany Rodriguez MD [ESTEBAN] Papito Jewell MD Clinical Impressions as of 04/15/21 1559 Right-sided chest pain Elevated troponin SOB (shortness of breath) - resolved KROOM COORDINATOR Gloria Boogie RN - 04/15/2021 5:00 AM CST [facility] Emergency Department Triage Note Arrived to ED by: car. Transported to ED From: home. Accompanied by: friend. Chief Complaint: chest pain Onset of Symptoms and Events Surrounding Chief Complaint: pt admitted to room via w/c--pt s/p AAA surgery 03/24--at [facility]--pt was discharge Tuesday--pt developed increasing chest pain with left lungpain since 0--incisions have healed well--no redness-no drainage--monitors on--EKG done upon arrival to room Gloria Boogie RN 04/15/2021, 6:22 AM KROOM COORDINATOR documented in this encounter Plan of Treatment Not on filedocumented as of this encounter Procedures Procedure Name Priority Date/Time Associated Comments Diagnosis BLOOD CULTURE STAT 04/15/2021 11:13 Results fo r this AM STOCKROOM COORDINATOR procedure are i n the results section. BLOOD CULTURE STAT 04/15/2021 11:13 Results fo r this AM STOCKROOM COORDINATOR procedure are i n the results section. BLOOD CULTURE STAT 04/15/2021 10:32 Results fo r this AM STOCKROOM COORDINATOR procedure are i n the results section. BLOOD CULTURE STAT 04/15/2021 10:32 Results fo r this AM STOCKROOM COORDINATOR procedure are i n the results section. TROPONIN I Specified Time 04/15/2021 8:53 Results fo r this AM STOCKROOM COORDINATOR procedure are i n the results section. CT ANGIO CHEST ABD STAT 04/15/2021 7:16 Result s for this PEL W/WO IV CONT AM STOCKROOM COORDINATOR procedure a re in DISSECTION the results section. POC US BASIC CARDIAC Routine 04/15/2021 6:42 Resu lts for this AM STOCKROOM COORDINATOR procedure are i n the results section. XR CHEST 2 VIEWS STAT 04/15/2021 6:04 Results for this AM STOCKROOM COORDINATOR procedure are i n the results section. PROCALCITONIN Routine 04/15/2021 5:36 Results for this AM STOCKROOM COORDINATOR procedure are i n the results section. BASIC METABOLIC PANEL STAT 04/15/2021 5:36 Res ults for this AM STOCKROOM COORDINATOR procedure are i n the results section. TROPONIN I STAT 04/15/2021 5:36 Results for this AM STOCKROOM COORDINATOR procedure are i n the results section. COMPLETE BLOOD STAT 04/15/2021 5:36 Results fo r this COUNT-NO DIFF AM STOCKROOM COORDINATOR procedure are in the results section. INR/PROTIME STAT 04/15/2021 5:36 Results for this AM STOCKROOM COORDINATOR procedure are i n the results section. ECG-ROUTINE 12 LEAD; STAT 04/15/2021 5:01 Resu lts for this INTRPT & REPRT AM STOCKROOM COORDINATOR procedure are in the results section. documented in this encounter Results Blood Culture (04/15/2021 11:13 AM STOCKROOM COORDINATOR) [facility] gist Method Time Signature Blood Culture No Growth [facility] 04/20/2021 [facility] at 5 Days ETEST 8:01 PM STOCKROOM COORDINATOR HOSPITAL METHOD Specimen Anatomical Collection Method / Collection Time Recei obb Time (Source) Location / Volume Laterality Blood Venipuncture / 04/15/2021 11:13 (Venipuncture or Unknown AM STOCKROOM COORDINATOR 11:36 AM CS T Line Start) Tiffany Rodriguez MD LAB_1 Performing Organization Address [facility]/State/ZIP [place] [address] Blood Culture (04/15/2021 10:32 AM STOCKROOM COORDINATOR) Patholo gist Method Time Signature Blood Culture No Growth [facility] 04/20/2021 [facility] at 5 Days ETEST 1:00 PM [facility] METHOD Specimen Anatomical Collection Method / Collection Time Recei bob Time (Source) Location / Volume Laterality Blood Venipuncture / 04/15/2021 10:32 (Venipuncture or Unknown AM STOCKROOM COORDINATOR 10:36 AM CS T Line Start) Tiffany Rodriguez MD LAB_1 Performing Organization Address City/State/ZIP Code Phon e Number [address] [id number] (ABNORMAL) Troponin I (04/15/2021 8:53 AM STOCKROOM COORDINATOR) P athologist Signature Troponin I 0.12 (H) 0.00 - 0.03 04/15/2021 [place] ng/mL 9:27 AM [facility] Specimen Anatomical Collection Method / Collection Time Recei bob Time (Source) Location / Volume Laterality Blood Venipuncture / 04/15/2021 8:53 04/15/2021 8:56 Unknown AM STOCKROOM COORDINATOR AM STOCKROOM COORDINATOR Papito Jewell MD LAB_1 Performing Organization Address City/State/ZIP Code Phon e Number [facility] [address] [place] [address] CT Angio Chest Abd Pel W/WO IV Cont Dissection (04/15/2021 7:16 AM STOCKROOM COORDINATOR) Anatomical Region Laterality Modality Abdomen, Pelvis, Chest, Lung, Vascular C omputed Tomography Specimen (Source) Anatomical Collection Method Collection Time Re ceived Time Location / / Volume Laterality 04/15/2021 7:16 AM STOCKROOM COORDINATOR Narrative 04/15/2021 5:57 PM STOCKROOM COORDINATOR EXAM: CT ANGIO CHEST ABD PEL W/WO IV CONT DISSECTION LOCATION: [facility] DATE/TIME: 04/15/2021 7:16 AM INDICATION: Recent repair of an aortic d issection on 03/27/2021 with right-sided chest pain and discomfort and low-grade fever. Patient was discharged from the hospital yesterday. Short of breath. COMPARISON: None. TECHNIQUE: CT angiogram chest abdomen pe lvis during arterial phase of injection of IV contrast. 2D and 3D MIP reconstructions were performed by the staff cytotechnologist. Dose reduction techniques were used. CONTRAST: IOHEXOL 350 MG/ML IV SOLN 100 mL FINDINGS: CT ANGIOGRAM CHEST, ABDOMEN, AND PELVIS: No hyperdense rim sign within the aorta to suggest intramural hematoma. Irregular shape of the ascending aorta at the level of the great vessels most consistent with patient's recent surgical repair. A preet is aneurysmal in the ascending region measuring 4.6 cm in diameter. Descending aorta is 4.5 cm in caliber. No mediastinal hemorrhage. Celiac, SMA, renal galen semaj and CHRIS are patent. Iliac vasculatu re is also patent. LUNGS AND PLEURA: There is a nodule carmen uring 1.2 cm in the right upper lobe on series 6: Image 63. Nodule in the right lower lobe on image 72 measures 10 mm x 9 mm. A nodule in the right middle lobe on image 75 measures 1.3 x 1.0 cm. Additio nal nodules in the right middle lobe seen on series 6: Image 109. Cavitary nodule in the right lower lobe on image 135 measures 2.7 x 3.0 cm. On the left there are also several small pulmonary nodules. Right hydropneumothorax. This could cert ainly be infected. MEDIASTINUM/AXILLAE: Subcarinal adenopat hy with a node measuring 2.4 cm AP on image 71. Right hilar lymph node measures 2.2 x 1.5 cm. Heart is mildly enlarged. No pericardial effusion. No mediastinal he morrhage. Tiny amount of mediastinal air anteriorly on series 7: Image 77. No mediastinal abscess. CORONARY ARTERY CALCIFICATION: None. HEPATOBILIARY: Liver is unremarkable. Ga llbladder has been resected. PANCREAS: Normal. SPLEEN: Normal. ADRENAL GLANDS: Normal. 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 Lobulated left kidney with several simple cysts. These do not require follow-up. No hydronephrosis. Bladder is unremarkable. BOWEL: Bowel is unremarkable. No intra-a bdominal abscess. No free fluid. LYMPH NODES: No retroperitoneal adenopat hy. No pelvic adenopathy. PELVIC ORGANS: Normal. MUSCULOSKELETAL: Degenerative changes in the spine. Sternotomy wires. IMPRESSION: 1. ??Hydropneumothorax on the right. Thi s may be infected. 2. ??Multiple pulmonary nodules bilatera lly, right worse than left, with at least one of these nodules being cavitary at the right lung base. No prior images are available for comparison, however, a agustin or CT report in Care Everywhere from 04/2021 demonstrated no evidence of nodules. Given that these are multiple and new and at least one is cavitary, the possibility of septic emboli is raised. Follow-up to resolution is recommended. 3. ??Aneurysmal dilatation of the ascend ing aorta with irregularity in the configuration of the ascending aorta most consistent with patient's known recent aortic surgical repair. No mediastinal hemorrhage or mediastinal abscess. Procedure Note Opal Lemus MD - 04/15/2021Formatti ng of this note might be different from the original. EXAM: CT ANGIO CHEST ABD PEL W/WO IV CON T DISSECTION LOCATION: [facility] DATE/TIME: 04/15/2021 7:16 AM INDICATION: Recent repair of an aortic d issection on 03/27/2021 with right-sided chest pain and discomfort and low-grade fever. Patient was discharged from the hospital yesterday. Short of breath. COMPARISON: None. TECHNIQUE: CT angiogram chest abdomen pe lvis during arterial phase of injection of IV contrast. 2D and 3D MIP reconstructions were performed by the staff cytotechnologist. Dose reduction techniques were used. CONTRAST: IOHEXOL 350 MG/ML IV SOLN 100 mL FINDINGS: CT ANGIOGRAM CHEST, ABDOMEN, AND PELVIS: No hyperdense rim sign within the aorta to suggest intramural hematoma. Irregular shape of the ascending aorta at the level of the great vessels most consistent with patient's recent surgical repair. Aorta is aneurys mal in the ascending region measuring 4.6 cm in diameter. Descending aorta is 4.5 cm in caliber. No mediastinal hemorrhage. Celiac, SMA, renal arteries and CHRIS are patent. Iliac vasculature is also patent. LUNGS AND PLEURA: There is a nodule carmen uring 1.2 cm in the right upper lobe on series 6: Image 63. Nodule in the right lower lobe on image 72 measures 10 mm x 9 mm. A nodule in the right middle lobe on image 75 measures 1.3 x 1.0 cm. Additional nodule s in the right middle lobe seen on series 6: Image 109. Cavitary nodule in the right lower lobe on image 135 measures 2.7 x 3.0 cm. On the left there are also several small pulmonary nodules. Right hydropneumothorax. This could cert ainly be infected. MEDIASTINUM/AXILLAE: Subcarinal adenopat hy with a node measuring 2.4 cm AP on image 71. Right hilar lymph node measures 2.2 x 1.5 cm. Heart is mildly enlarged. No pericardial effusion. No mediastinal hemorrhage. Tiny amount of mediastinal air anteriorly on series 7: Image 77. No mediastinal abscess. CORONARY ARTERY CALCIFICATION: None. HEPATOBILIARY: Liver is unremarkable. Ga llbladder has been resected. PANCREAS: Normal. SPLEEN: Normal. ADRENAL GLANDS: Normal. 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 Lobulated left kidney with several simple cysts. These do not require follow-up. No hydronephrosis. Bladder is unremarkable. BOWEL: Bowel is unremarkable. No intra-a bdominal abscess. No free fluid. LYMPH NODES: No retroperitoneal adenopat hy. No pelvic adenopathy. PELVIC ORGANS: Normal. MUSCULOSKELETAL: Degenerative changes in the spine. Sternotomy wires. IMPRESSION: 1. Hydropneumothorax on the right. This may be infected. 2. Multiple pulmonary nodules bilaterall y, right worse than left, with at least one of these nodules being cavitary at the right lung base. No prior images are available for comparison, however, a prior CT report in [facility] from 12/11/2020 demonstrated no evidence of nodules. Given that these are multiple and new and at least one is cavitary, the possibility of septic emboli is raised. Follow-up to resolution is recommended. 3. 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 No mediastinal hemorrhage or mediastinal abscess. Papito Jewell MD RAD CT POC US BASIC CARDIAC (04/15/2021 6:42 AM STOCKROOM COORDINATOR) Anatomical Region Laterality Modality Chest, Cardiac, US Cardiac Other Specimen (Source) Anatomical Location Collection Method / Collectio n Time Received Time / Laterality Volume Narrative 04/15/2021 6:59 AM STOCKROOM COORDINATOR Papito Jewell MD ? 04/15/2021 ??7:00 AM [facility] Point of Care Ultrasound Interpretation POC US BASIC CARDIAC Date/Time: 04/15/2021 6:59 AM Performed by: Papito Jewell MD Authorized by: Papito Jewell MD Point of Care Ultrasound: Basic Cardiac Indications: Chest Pain Window: Adequate for full imaging and in terpretation Findings/ Impression (Within the context of limited [id number] ultrasound): Good Global Function and No Pericardial Effusion Papito Jewell MD RAD POC US XR Chest 2 Views (04/15/2021 6:04 AM STOCKROOM COORDINATOR) Anatomical Region Laterality Modality Chest, Lung Computed Radiography Specimen (Source) Anatomical Collection Method Collection Time Re ceived Time Location / / Volume Laterality 04/15/2021 6:04 AM STOCKROOM COORDINATOR Narrative 04/15/2021 6:16 AM STOCKROOM COORDINATOR EXAM: XR CHEST 2 VIEWS LOCATION: [facility] DATE/TIME: 04/15/2021 6:04 AM INDICATION: Right sided chest pain, eval for ptx COMPARISON: None. IMPRESSION: Heart size within normal izquierdo its status post sternotomy. Left atrial appendage clip in place. Left lung is clear. Airspace infiltrate in the right mid and lower lung zones consistent with pne umonia. Small right pleural effusion wit h suggestion of rounded lucencies peripherally which could represent locules of gas. Recommend contrast-enhanced CT of the chest to evaluate for potential underly ing empyema or other manifestation of in fection. No visible pneumothorax. Procedure Note Rohan Disla MD - 04/15/2021Format ting of this note might be different from the original. EXAM: XR CHEST 2 VIEWS LOCATION: [facility] DATE/TIME: 04/15/2021 6:04 AM INDICATION: Right sided chest pain, eval for ptx COMPARISON: None. IMPRESSION: Heart size within normal izquierdo its status post sternotomy. Left atrial appendage clip in place. Left lung is clear. Airspace infiltrate in the right mid and lower lung zones consistent with pneumonia. Small right pleural effusion with suggestion of roun ded lucencies peripherally which could represent locules of gas. Recommend contrast-enhanced CT of the chest to evaluate for potential underlying empyema or other manifestation of infection. No visible pneumothorax. Papito Jewell MD RAD GD (ABNORMAL) INR/Protime (04/15/2021 5:36 AM STOCKROOM COORDINATOR) P athologist Signature Protime 17.8 (H) 11.8 - 14.6 04/15/2021 [place] Seconds 6:09 AM [facility]OM CO[facility] INR 1.5 (H) 0.9 - 1.1 04/15/2021 [place] 6:09 AM [facility] Specimen Anatomical Collection Method / Collection Time Recei bob Time (Source) Location / Volume Laterality Blood Venipuncture / 04/15/2021 5:36 04/15/2021 5:47 Unknown AM STOCKROOM COORDINATOR AM STOCKROOM COORDINATOR Narrative [facility] - 04/15/2021 6:09 AM STOCKROOM COORDINATOR Therapeutic range determined by protocol established by anticoagulation provider. Papito Jewell MD LAB_1 Performing Organization Address City/State/ZIP Code Phon e Number [facility] [address] [place] [address] Procalcitonin (04/15/2021 5:36 AM STOCKROOM COORDINATOR) athologist Signature Procalcitonin 0.11 <=0.24 04/15/2021 [place] ng/mL 6:35 AM [facility] Specimen Anatomical Collection Method / Collection Time Recei bob Time (Source) Location / Volume Laterality Blood Venipuncture / 04/15/2021 5:36 04/15/2021 5:47 Unknown AM STOCKROOM COORDINATOR AM STOCKROOM COORDINATOR Narrative [facility] - 04/15/2021 6:35 AM STOCKROOM COORDINATOR Differential Diagnosis of Lower Respiratory Tract Infection [...] the context of the patient's clinical situation. Papito Jewell MD LAB_1 Performing Organization Address City/State/ZIP Code Phon e Number [facility] [address] [place] [address] (ABNORMAL) BASIC METABOLIC PANEL (04/15/2021 5:36 AM STOCKROOM COORDINATOR) athologist Signature Sodium 134 (L) 136 - 145 04/15/2021 [place] mmol/L 6:16 AM [facility] Potassium 3.8 3.5 - 5.1 04/15/2021 [place] mmol/L 6:16 AM [facility] Chloride 100 98 - 109 04/15/2021 [place] mmol/L 6:16 AM [facility] CO2 23 20 - 29 04/15/2021 [place] mmol/L 6:16 AM [facility] Anion Gap 11 7 - 16 04/15/2021 [place] mmol/L 6:16 AM [facility] Calcium 9.5 8.4 - 10.4 04/15/2021 [place] mg/dL 6:16 AM [facility] BUN 17 7 - 26 04/15/2021 [place] mg/dL 6:16 AM [facility] Creatinine 0.75 0.73 - 04/15/2021 [place] 1.18 mg/dL 6:16 AM [facility] GFR, Estimated >60 >60 04/15/2021 [place] mL/min/1.7 6:16 AM [facility] 3m2 Glucose 114 (H) 70 - 100 04/15/2021 [place] mg/dL 6:16 AM [facility] Comment: The given reference range is fo r the fasting state. Non-fasting reference range for glucose is 70 - 180 mg/dL. Specimen Anatomical Collection Method / Collection Time Recei bob Time (Source) Location / Volume Laterality Blood Venipuncture / 04/15/2021 5:36 04/15/2021 5:47 Unknown AM STOCKROOM COORDINATOR AM STOCKROOM COORDINATOR Papito Jewell MD LAB_1 Performing Organization Address City/State/ZIP Code Phon e Number [facility] [address] [place] [address] (ABNORMAL) TROPONIN I (04/15/2021 5:36 AM STOCKROOM COORDINATOR) P athologist Signature Troponin I 0.14 (H) 0.00 - 0.03 04/15/2021 [place] ng/mL 6:35 AM ST[facility]OM COORDINATOR [facility] Specimen Anatomical Collection Method / Collection Time Recei bob Time (Source) Location / Volume Laterality Blood Venipuncture / 04/15/2021 5:36 04/15/2021 5:47 Unknown AM STOCKROOM COORDINATOR AM STOCKROOM COORDINATOR Papito Jewell MD LAB_1 Performing Organization Address City/[facility]/ZIP Code Phon e Number [facility] [address] [place] [address] (ABNORMAL) HEMOGRAM/PLTS (04/15/2021 5:36 AM STOCKROOM COORDINATOR) Analysis Performed At Patho logist Time Signature WBC 11.5 (H) 3.5 - 10.5 04/15/2021 [place] x10(9)/L 5:54 AM STOCKROOM COORDINATOR [facility] RBC 3.19 (L) 4.32 - 04/15/2021 [place] 5.72 5:54 AM [facility] x10(12)/L Hemoglobin 9.5 (L) 13.5 - 04/15/2021 [place] 17.5 g/dL 5:54 AM STOCKROOM COORDINATOR [facility] HCT 29.4 (L) 38.8 - 04/15/2021 [place] 50.0 % 5:54 AM STOCKROOM COORDINATOR [facility] MCV 92.2 80.0 - 04/15/2021 [place] 100.0 fL 5:54 AM STOCKROOM COORDINATOR [facility] MCH 29.8 27.6 - 04/15/2021 [place] 33.3 pg 5:54 AM STOCKROOM COORDINATOR [facility] MCHC 32.3 31.5 - 04/15/2021 [place] 35.2 g/dL 5:54 AM STOCKROOM COORDINATOR [facility] RDW 13.5 11.9 - 04/15/2021 [place] 15.5 % 5:54 AM STOCKROOM COORDINATOR [facility] Platelets 496 (H) 150 - 450 04/15/2021 [place] x10(9)/L 5:54 AM [facility] Automated NRBC 0 <=0 /100 04/15/2021 [place] WBC 5:54 AM [facility] Specimen Anatomical Collection Method / Collection Time Recei bob Time (Source) Location / Volume Laterality Blood Venipuncture / 04/15/2021 5:36 04/15/2021 5:47 Unknown AM STOCKROOM COORDINATOR AM STOCKROOM COORDINATOR Papito Jewell MD LAB_1 Performing Organization Address City/State/ZIP Code Phon e Number [facility] [address] [place] [address] ECG 12-Lead STAT (04/15/2021 5:01 AM [facility]) P athologist Signature Ventricular Rate 107 BPM [facility] Atrial Rate 214 BPM [facility] QRS Duration 88 ms [facility] QT 334 ms [facility] QTc 445 ms [facility] P [place] 102 degrees [facility] R [place] 41 degrees [facility] T [place] 15 degrees [facility] Specimen (Source) Anatomical Collection Method Collection Time Re ceived Time Location / / Volume Laterality 04/15/2021 5:01 AM STOCKROOM COORDINATOR Narrative [facility] - 04/15/2021 10:06 AM STOCKROOM COORDINATOR Atrial flutter with 2:1 A-V conduction Abnormal ECG No previous ECGs available Confirmed by Aleksey Choi ([id number]) on 10:06:04 AM Procedure Note Aleksey Choi MD - 04/15/2021 Atrial flutter with 2:1 A-V conduction Abnormal ECG No previous ECGs available Confirmed by Aleksey Choi ([id number]) on 10:06:04 AM Papito Jewell MD EKG Performing Organization Address City/State/ZIP Code Phon e Number [facility] [address] [place] [address] documented in this encounter Visit Diagnoses Diagnosis Right-sided chest pain - Primary Elevated troponin Other abnormal blood chemistry SOB (shortness of breath) Shortness of breath documented in this encounter Administered Medications Inactive Administered Medications - up to 3 most recent administrations Medication Order MAR Action Action Date Dose Rate Site oxyCODONE-acetaminophen Given 04/15/2021 5:41 AM STOCKROOM COORDINATOR 1 Tablet (PERCOCET) 5-325 MG per tablet 1 Tablet 1 Tablet, Oral, ONCE, On Tue04/15/21 at 0545, For 1 dose sodium chloride 0.9 % solution Starting on Tue04/15/21 at 0701, For 1 dose, Gloria Boogie: cabinet override sodium chloride 0.9% bolus 1,000 mL Started 04/15/2021 7:05 AM STOCKROOM COORDINATOR 1,000 mL 1,000 mL, Intravenous, Administer over 1 Hours, ONCE, On Tue04/15/21 at 0730, For 1 dose documented in this encounter Active and Recently Administered Medications Times are shown in STOCKROOM COORDINATOR. Scheduled Medication Order 04/13/2021 04/14/2021 04/15/2021 oxyCODONE-acetaminophen (PERCOCET) 5-325 MG per tablet 1 Tablet (COMPLETED) 0541 (Given - Provider: Gloria Boogie, HERNANDEZ) 1 Tablet, Oral, ONCE, On Tue04/15/21 at 0545, For 1 dose sodium chloride 0.9% bolus 1,000 mL (COMPLETED) 0705 (Started - Provider: Gloria Boogie, RN)0900 (Infused - Provider: Karie Zavala RN) 1,000 mL, Intravenous, Administer over 1 Hours, ONCE, On Tue04/15/21 at 0730, For 1 dose documented in this encounter Care Teams Rubber Liner Relationship Specialty Start Date End Date Aravind Decker MD PCP - General Family Practice 01/14/14 [address] [place] [address] documented as of this encounter
--- OUTSIDE RECORDS SUMMARY | 2022-03-05 03:05 | XMS_ITS | Encounter Summary ---
:1945 Author Organization [facility] Address [address] [place] [address] Care Team Providers Name Role Phone Aravind Decker MD Primary Care Provider Reason for Visit Procedure/Equipment (Routine) - Incomplete Specialty Diagnoses / Procedures Referred By Contact Refer red To Contact Procedures Papito Jewell MD XR Chest 2 Views [address] [place] [address] Referral ID Status Reason Start Date Expiration Date Visits V isits Requested Authorized [id number] Incomplete 04/15/2021 07/15/2022 1 1 Encounter Details Date Type Department Care Team Description 04/15/2021 Ancillary Procedure [address] [address] Social History Tobacco Use Types Packs/Day Years [...] Name Priority Date/Time Associated Diagnosis Comme nts XR CHEST 2 VIEWS STAT 04/15/2021 6:04 AM Resul ts for this PHARM TECH procedure are i n the results section. documented in this encounter Results XR Chest 2 Views (04/15/2021 6:04 AM PHARM TECH) Anatomical Region Laterality Modality Chest, Lung Computed Radiography Specimen (Source) Anatomical Collection Method Collection Time Re ceived Time Location / / Volume Laterality 04/15/2021 6:04 AM PHARM TECH Narrative 04/15/2021 6:16 AM PHARM TECH EXAM: XR CHEST 2 VIEWS LOCATION: [facility] DATE/TIME: 04/15/2021 6:04 AM INDICATION: Right [...] original. EXAM: XR CHEST 2 VIEWS LOCATION: [facility] DATE/TIME: 04/15/2021 6:04 AM INDICATION: Right [...] visible pneumothorax. Papito Jewell MD RAD GD documented in this encounter Visit Diagnoses Not on filedocumented in this encounter Care Teams Diversional Therapist Relationship Specialty Start Date End Date Aravind Decker MD PCP - General Family Practice 01/14/14 [address] [place] [address] documented as of this encounter
--- OUTSIDE RECORDS SUMMARY | 2022-03-05 03:05 | XMS_ITS | Encounter Summary ---
:1945 Author Organization [facility] Address [address] [place] [address] Care Team Providers Name Role Phone Unavailable Primary Care Provider Unavailable Encounter Details Date Type Department Care Team Description 04/01/2016 Hospital Encounter HX [facility] ED Niko Nguyen D.O. [address] [place], [place] [phone] (Wo rk) Social History Tobacco Use Types [...] or relatives? How often do you attend [employer] or Patient refused 2021 mormonism services? Do you belong to any clubs or No 08/31/2021 organizations such as [employer] groups, unions, fraternal or athletic groups, or [...] minutes do you engage in exercise at is 20 min 08/31/2021 level? Stress Answer [...] months, how many places have you lived? [id number] 08/31/2021 In the last 12 months, was there a time when you did No 08/31/2021 [address] to sleep or slept in a retirement (including now)? Sex Assigned at Date Recorded Not on file documented as of this encounter Last Filed Vital Signs Vital Sign Reading Time Taken Comments Blood Pressure 124/77 04/01/2016 11:15 PM FORMULA CHECKER Pulse 69 04/01/2016 11:15 PM FORMULA CHECKER Temperature - - Respiratory Rate 18 04/01/2016 11:15 PM FORMULA CHECKER Oxygen Saturation - - Inhaled Oxygen Concentration - - Weight 78.8 kg (173 lb 11.6 oz) 04/01/2016 8:44 PM FORMULA CHECKER Height 185.4 cm (6' 1) 04/01/2016 11:15 PM FORMULA CHECKER Body Mass Index 22.92 04/01/2016 8:44 PM FORMULA CHECKER documented in this encounter Discharge Summaries Karie Russell R.N. - 04/01/2016 11:52 PM CST ED Discharge Instructions [address] [place] [id number] Name: PO ENGLISH Date of : 1945 12:00 AM Visit Date: 04/01/2016 8:40 PM [facility] Number: [id number] Address: [address] [place], [place] [id number] Primary Care Provider: PCP, ROMAINE IMPORTANT: [facility] in [place] would like to thank you for allowing us to assistyou with your healthcare needs. The following includes patient education materials and information regarding your injury/illness. 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 Do not take your warfarin tomorrow or Tuesday. Hold it on Tuesday also, if you are still having bloody urine on Tuesday. Call the [place] appointment line to schedule Urology follow up regarding your kidney stone. Return to the emergency department if you feel that your symptoms are worsening. Your Upcoming Appointments: Date Time Location Provider No Appointments found Patient Education Materials: Kidney Stone, Undescended, No Symptoms A kidney stone begins as tiny crystals that form inside the kidney where urine is made. Most kidney stones enlarge to about 1/8 to 1/4 in size before leaving the kidney and moving toward the bladder.While the stone remains in the kidney, it causes no symptoms. When the stone breaks free and begins to move down the ureter (the narrow tube joining the kidney to the bladder) it causes sharp back and side pain, often with nausea and vomiting. When the stone reaches the bladder, the pain stops. Once in your bladder, the kidney stone may pass through the urethra (urinary opening) while you are urinating. Or, it may break into such small fragments that you dont notice it passing. Your kidney stone is still inside the kidney. There is no way to predict how long it will be before it breaks free and causes any symptoms. Most stones will pass on their own within a few hours to a few days (sometimes longer). You may notice a red, pink, or brown color to your urine. This is normal while passing a kidney stone. A large stone may not pass on its own and may require special proceduresto remove it. Home Care: Drink plenty of fluids. This increases urine flow and reduces the risk of further stone formation. Healthy adults (no heart/liver/kidney disease) who have had a kidney stone should drink 2-3 quarts (8-12 eight-ounce glasses) of fluids per day. Most of this should be water. The goal is to produce 1.5 to 2 quarts of almost colorless urine per 24 hours. If you develop pain, you may take ibuprofen (Motrin, Advil) or naproxen (Aleve) for pain, unless another medicine was prescribed. [NOTE: If you have chronic liver or kidney disease or ever had a stomach ulcer or GI bleeding, talk with your doctor before using these medicines.] Prevention: Each year, there is a 5-10% chance that a new stone will form (50% chance over the next 10 years). The risk is highest if you have a family history of kidney stones or have certain chronic illnesses such as diabetes. However, there are lifestyle and dietary changes that you can make to reduce the riskof a recurrence. Most kidney stones are made of calcium. The following is advice for preventing a recurrence of calcium stones. If you dont know the type of stone you have, follow this advice until the cause of your stone is determined. Things That Help: ?? The most important thing you can do is to drink plenty of fluids each day, as described above (#1). ?? Certain foods, such as wheat, rice, rye, barley and beans, contain phytate, a compound that may lower the risk of recurrence of any type of stone. ?? Increase the amounts of fruits and vegetables (especially those high in potassium). Things To Limit Or Avoid: ?? Calcium supplements may increase your risk of calcium stones. If you are taking these, talk to your doctor about the risks and benefits of continuing this treatment. [Note: There is no need to limitthe amount of calcium in the foods you eat (such as milk and dairy products)]. ?? Limit salt intake to 2-3 grams (1 to 1.5 teaspoons) per day. Use limited amounts when cooking, and dont add salt at the table. ?? Limit spinach, rhubarb, peanuts, cashews and almonds, grapefruit and grapefruit juice. ?? Reducing the amount of animal meat in your diet may lower your risk. ?? Women should avoid excess sugar (sucrose) and fructose (sweetener in many soft drinks) in their diet. ?? If you take vitamin C as a supplement, do not take more than 1,000 mg per day. Follow Up with your doctor as advised by our staff. Talk to your doctor about urine and blood tests to find out the cause of your stone. [NOTE: If you had an x-ray or CT scan, it will be reviewed by a specialist. You will be notified of any new findings that may affect your care.] Get Prompt Medical Attention if any of the following occur: ?? tSevere sharp back or side pain ?? Repeated vomiting or unable to keep down fluids ?? Weakness, dizziness, or fainting ?? Fever of 100.4?F (38?C) or higher, or as directed by your healthcare provider ?? Blood (pink or red color) in your urine ?? Unable to pass urine for 8 hours or increasing bladder pressure ?? [id number] [facility], [address] [place] [address], [place] [address]. All rights reserved. This information is not intended as a substitute for professional medical care. Always follow your healthcare professional's instructions. Abdominal Aortic Aneurysm (Stable) The aorta is the bodys main artery that carries oxygen-rich blood from the heart. It travels from the heart down to the lower abdomen, where it divides into smaller blood vessels. Certain conditions such as hypertension (high blood pressure), atherosclerosis (hardening of the arteries) and obesity, and certain lifestyles such as smoking and using stimulant drugs (cocaine and amphetamines) can weaken the wall of the aorta. An aneurysm can form in the weakened aortic wall. This appears as a small bulge in the wall of the aorta, which can slowly expand. Because the bulging area is stretched thinner than the normal aortic wall, it can rupture. A rupture of the aorta causes massive internal bleeding and . Most aortic aneurysms do not cause any symptoms until they begin to expand rapidly or rupture. Therefore, most aneurysms are discovered on exams or tests done for other reasons (like an X-ray, ultrasound or CT scan). An expanding aneurysm causes symptoms of abdomen, back, flank or groin pain, which may come and go at first, or become constant. In the case of a ruptured aneurysm, there is sudden abdominal, back or groin pain, followed by weakness, dizziness and loss of consciousness as blood pressure drops and a shock state occurs. This is a fatal condition unless immediate surgery is performed. Small aneurysms rarely rupture and can be safely treated with medicines to lower blood pressure and reduce stress on the aortic wall. Routine ultrasound or CT scans can determine if the aneurysm is growing. Larger aneurysms will require surgery. Surgical treatment involves removing the section of aorta with the aneurysm and replacing it with an aortic graft (artificial blood vessel). A newer alternative to surgery, which can be used in certain cases, involves the placement of a stent (tubular wire mesh) inside the aorta to support the wall and reduce stress on the aneurysm. Rarely, a blood clot can form inside of an aortic aneurysm with no symptoms. A piece of the clot canbreak off and pass to smaller blood vessels in the intestines or legs and cause pain and loss of blood flow to that part. If a small aneurysm has been identified, which does not require surgery, you should still address any lifestyle factors that may improve your overall cardiovascular health. This includes such things asfollowing a healthy diet, losing weight, stopping smoking, and lowering your cholesterol. Home Care Your aneurysm is small and does not require surgery; you will be followed along as an outpatient with routine ultrasound screening exams to measure the size of the aneurysm every 6 months. You may return to your usual level of activity. Follow these guidelines to improve your cardiac health: ?? If you are overweight, begin a weight loss program. ?? If you have hypertension, reduce your salt intake. -- Avoid high salt foods (olives, pickles, smoked meats, salted potato chips, etc.). -- Do not add salt to your food at the table. -- Use only small amounts of salt when cooking. ?? Begin an exercise program. Discuss with your doctor what type of exercise program would be best for you. It doesn't have to be difficult. Even brisk walking for 20 minutes three times a week is a good form of exercise. ?? Avoid medicines which contain heart stimulants. This includes many cold and sinus decongestant pills and sprays as well as diet pills. Check the warnings about hypertension on the label. Stimulants such as amphetamine or cocaine could be lethal for someone with hypertension. Never take these. ?? Limit your caffeine intake or switch to caffeine-free products. ?? Stop smoking. If you are a long-time smoker, this can be hard. Enroll in a stop-smoking program to improve your chance of success. ?? Learning how to handle stress better is an important part of any program to lower blood pressure.Learn about relaxation methods such as meditation, yoga or biofeedback. ?? If medicines were prescribed for hypertension, take them exactly as directed. Missing doses may cause your blood pressure get out of control. ?? Consider buying an automatic blood pressure machine (available at most pharmacies). Use this to monitor your blood pressure at home and report the results to your doctor. Follow Up: Regular visits to your own physician for blood pressure checks and periodic ultrasounds of the aortaare an important part of your care. Make a follow-up appointment with your doctor, or as directed byour staff. Get Prompt Medical Attention if any of the following occur: -- Sudden severe abdominal, back, flank or groin pain -- Blood in your stools -- Chest pain or shortness of breath -- Generalized weakness, dizziness or fainting -- Local weakness, numbness, pain or coolness of one leg ?? [phone] [facility], [address] [place] [address], [place] [address]. All rights reserved. This information is not intended as a substitute for professional medical care. Always follow your healthcare professional's instructions. Consider Using Patient [employer] is a secure online and Mobile application that lets you: ?? View lab and test results ?? View portions of your medical record including clinical notes, immunizations and discharge summaries ?? Request an appointment or medication refill ?? Review your appointment schedule ?? Send secure messages to your care team Its easy to create an account if you dont have one. Go to [email or web address] and click on Create Your Account. Then, follow the directions to complete the online form. Youll be asked for your [facility] number which you can find at the top of this document. ED Tests and Procedures: Order Status Automated Diff-5 Part Completed UR % Dysmorphic RBC Completed CBC (includes Auto Differential) Completed Comprehensive Metabolic Panel Completed Urinalysis with Culture if Indicated Completed PT/INR Completed CT Abdomen/Pelvis w/o contrast Canceled CT Urogram w/ + w/o contrast Canceled CT Stone Protocol Ordered Discharge Prescriptions & Home Medications: Medication/Strength Dose Route Frequency Indications/Special Instructions/Comments/Notes traMADol (traMADol 50 mg oral tablet) 50 mg Oral every 4 hours As needed for sciatica and knee pain Misc Prescription (Misc Prescription) See Instructions Digest Basic 1 tab every evening with supper cholecalciferol (Vitamin D3 1000 intl units oral tablet) 1,000 IntU Oral once a day dofetilide (Tikosyn 250 mcg oral capsule) 250 mcg Oral two times a day diltiaZEM (Diltia XT 180 mg/24 hours oral capsule, extended release) 180 mg Oral once a day atenolol (atenolol 25 mg oral tablet) 25 mg Oral two times a day warfarin (warfarin 5 mg oral tablet) See Instructions 1 tab(s) PO every Tue Sat Sun warfarin (warfarin 2.5 mg oral tablet) See Instructions 1 tab(s) PO every Tue Attention: If you have any medications at home not on this list, DO NOT take them until you contact your provider for clarification. Give a copy of your medication list to your primary care provider. Update your medication list any time medications or doses are changed and carry your medication list at all times in case of emergency. IMPORTANT: We examined and treated you today on an emergency basis only. This was not a substitute for, or an effort to provide, complete medical care. In most cases, you must let your doctor check youagain. Tell your doctor about any new or lasting problems. We cannot recognize and treat all injuries or illnesses in one Emergency Department visit. If you had special tests, such as EKG's or X- rays, we will review them again within 24 hours. We will call you if there are any new suggestions. Please follow the instructions above carefully. If you are being transferred to another facility, your follow up plan of care will be determined by the receiving facility. If you are a patient that is being discharged from the Emergency Department after receiving narcotics or other medications that may impair your judgment you may be a risk to yourself or others if you operate a motor vehicle. We recommend that you arrange a ride home with a responsible republican. SHAHBAZ Navarrete GERALD BERNARD , or responsible republican have received this information and my questions have been answered. I have discussed any challenges I see with this plan with the nurse or physician. Patient Signature or Responsible Constitution Party/Relationship Date Time Provider Signature Date Time IMPORTANT: We examined and treated you today on an emergency basis only. This was not a substitute for, or an effort to provide, complete medical care. In most cases, you must let your doctor check youagain. Tell your doctor about any new or lasting problems. We cannot recognize and treat all injuries or illnesses in one Emergency Department visit. If you had special tests, such as EKG's or X- rays, we will review them again within 24 hours. We will call you if there are any new suggestions. Please follow the instructions above carefully. If you are being transferred to another facility, your follow up plan of care will be determined by the receiving facility. If you are a patient that is being discharged from the Emergency Department after receiving narcotics or other medications that may impair your judgment you may be a risk to yourself or others if you operate a motor vehicle. We recommend that you arrange a ride home with a responsible republican. I, PO ENGLISH , or responsible republican have received this information and my questions have been answered. I have discussed any challenges I see with this plan with the nurse or physician. Patient Signature or Responsible Constitution Party/Relationship Date Time Provider Signature Date Time This document has images extracted. Please consider using [email or web address] for all your patient education needs. Source: [facility] [employer] Document Id: [id number] ULA CHECKER Karie Russell R.N. - 04/01/2016 11:52 PM CST ED Depart Summary [facility] Emergency Department Clinical Discharge Summary PERSON INFORMATION Name PO ENGLISH Age 71 Years 1945 12:00 AM Sex Male Language Solomon Islander PCP PCP, ELSEWHERE Marital Status Visit Id Visit Reason Hematuria; blood in urine Specialty Enc Type Emergency Med Service Emergency Medicine Referred by Track Group MAQN ED Discharge 04/01/2016 11:43 PM Tracking Id [id number] Checkout 04/01/2016 11:43 PM Checkin 04/01/2016 8:40 PM Acuity 3 -Urgent Dispo Type * Discharged to Home or Self Care Arrival 04/01/2016 8:40 PM Reg Status LOS 000 03:03 Address: [address] [place] [id number] Comment: PROVIDER INFORMATION Provider Role Provider Contact Time NIKO NGUYEN DO ED Provider 04/01/16 20:50 TAM HERNANDEZ [employer] PRECINCT Nurse 04/01/16 21:09 KARIE RUSSELL RN ED Nurse 04/01/16 21:41 DIAGNOSIS 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 Do not take your warfarin tomorrow or Tuesday. Hold it on Tuesday also, if you are still having bloody urine on Tuesday. Call the [place] appointment line to schedule Urology follow up regarding your kidney stone. Return to the emergency department if you feel that your symptoms are worsening. Source: [facility] Document Id: [id number] ULA CHECKER documented in this encounter Medications at Time of Discharge Medication Sig Dispensed Refills Start Date End Date cholecalciferol (VITAMIN Take 2 capsules by 0 D3) 50 mcg (2,000 Unit) mouth daily. capsule documented as of this encounter ED Notes Karie Russell RTadeo. - 04/01/2016 11:43 PM CST ED Disposition Summary ED Disposition Summary Entered On: 04/01/2016 23:51 FORMULA CHECKER Performed On: 04/01/2016 23:43 FORMULA CHECKER by KARIE RUSSELL [employer] Disposition Summary Present in Room During Exam/Procedure : Alone Mode of Discharge : Ambulatory Transportation : Private vehicle Printed Discharge Instructions Given to Patient : Yes Patient Status at Discharge from ED : Improved KARIE RUSSELL RN - 04/01/2016 23:51 FORMULA CHECKER Source[facility] Document Id: [id number] FORMULA CHECKER!7 ULA CHECKER Karie Russell R.N. - 04/01/2016 11:43 PM CST ED Education ED Education Entered On: 04/01/2016 23:52 FORMULA CHECKER Performed On: 04/01/2016 23:43 FORMULA CHECKER by KARIE RUSSELL RN Education ED Education Grid Topics : Discharge instructions/Medication list Individuals Taught : Patient Barriers to Learning : None evident Teaching Method : Explanation, Printed materials Teaching Evaluation : Able to teach back, Verbalizes understanding KARIE RUSSELL RN - 04/01/2016 23:51 FORMULA CHECKER Source: [employer] Document Id: [id number] FORMULA CHECKER!9 ULA CHECKER Karie Russell R.N. - 04/01/2016 11:40 PM CST ED Treatments and Procedures ED Treatments and Procedures Entered On: 04/01/2016 23:51 FORMULA CHECKER Performed On: 04/01/2016 23:40 FORMULA CHECKER by KARIE RUSSELL RN Peripheral IV Peripheral IV Assess/Intervention Grid Peripheral IV #1 IV Activity : Discontinue Removal : Catheter intact, Hemostasis within expected timeframe Date of Insertion : 04/01/2016 FORMULA CHECKER Discontinued Date : 04/01/2016 FORMULA CHECKER IV Site : Wrist Laterality : Left Catheter Size : 18 Catheter Type : Over the needle AKRIE RUSSELL RN - 04/01/2016 23:50 FORMULA CHECKER Source: [employer] Document Id: [id number] FORMULA CHECKER!12 ULA CHECKER Karie Russell R.N. - 04/01/2016 11:15 PM CST ED Nurse Reassess ED Nurse Reassess Entered On: 04/01/2016 23:50 FORMULA CHECKER Performed On: 04/01/2016 23:15 FORMULA CHECKER by KARIE RUSSELL RN Pain Assessment Pain Symptoms : Yes KARIE RUSSELL RN - 04/01/2016 23:50 FORMULA CHECKER Pain Scale Pain Scale Verbal 0-10 : Open KARIE RUSSELL RN - 04/01/2016 23:50 FORMULA CHECKER Pain Pain Assessment Grid Pain 1 Location : Lower back Laterality : Right Intensity : 4 KARIE RUSSELL RN - 04/01/2016 23:50 FORMULA CHECKER Comfort Measures Comfort Measures Response : Comfort level increased KARIE RUSSELL RN - 04/01/2016 23:50 FORMULA CHECKER Resp Reassess Respiratory Patient Stated Symptoms : None KARIE RUSSELL RN - 04/01/2016 23:50 FORMULA CHECKER CV Reassess CV Patient Stated Symptoms : None KARIE RUSSELL RN - 04/01/2016 23:50 FORMULA CHECKER /OB Reassess /OB Note : unchanged KARIE RUSSELL RN - 04/01/2016 23:50 FORMULA CHECKER Source: [employer] Document Id: [id number] FORMULA CHECKER!19 ULA CHECKER Karie Russell R.N. - 04/01/2016 10:12 PM CST ED Nurse Reassess ED Nurse Reassess Entered On: 04/01/2016 22:13 FORMULA CHECKER Performed On: 04/01/2016 22:12 FORMULA CHECKER by KARIE RUSSELL RN Pain Assessment Pain Symptoms : Yes KARIE RUSSELL RN - 04/01/2016 22:12 FORMULA CHECKER Pain Scale Pain Scale Verbal 0-10 : Open KARIE RUSSELL RN - 04/01/2016 22:12 FORMULA CHECKER Pain Pain Assessment Grid Pain 1 Location : Lower back Laterality : Right Intensity : 7 Time Pattern : Acute KARIE RUSSELL RN - 04/01/2016 22:12 FORMULA CHECKER Comfort Measures Patient Response : back from ct. states getting onto ct bed made his chronic back pain flare up Comfort Measures Response : Comfort level decreased KARIE RUSSELL RN - 04/01/2016 22:12 FORMULA CHECKER Resp Reassess Respiratory Patient Stated Symptoms : None KARIE RUSSELL RN - 04/01/2016 22:12 FORMULA CHECKER CV Reassess CV Patient Stated Symptoms : None KARIE RUSSELL RN - 04/01/2016 22:12 FORMULA CHECKER Source: [employer] Document Id: [id number] FORMULA CHECKER!19 ULA CHECKER Karie Russell R.N. - 04/01/2016 9:38 PM CST ED Nurse Reassess ED Nurse Reassess Entered On: 04/01/2016 21:39 FORMULA CHECKER Performed On: 04/01/2016 21:38 FORMULA CHECKER by KARIE RUSSELL RN Pain Assessment Pain Symptoms : No KARIE RUSSELL RN - 04/01/2016 21:38 FORMULA CHECKER Comfort Measures Patient Response : denies abdominal pain. c/o chronic back pain Comfort Measures Response : Comfort level unchanged KARIE RUSSELL RN - 04/01/2016 21:38 FORMULA CHECKER Resp Reassess Respiratory Patient Stated Symptoms : None KARIE RUSSELL RN - 04/01/2016 21:38 FORMULA CHECKER CV Reassess CV Patient Stated Symptoms : None KARIE RUSSELL RN - 04/01/2016 21:38 FORMULA CHECKER Neuro Reassess Last Well Time Known : Not applicable Orientation : Oriented x 3 Characteristics of Speech : Clear Level of Consciousness : Alert KARIE RUSSELL RN - 04/01/2016 21:38 FORMULA CHECKER GI Reassess GI Patient Stated Symptoms : None KARIE RUSSELL RN - 04/01/2016 21:38 FORMULA CHECKER /OB Reassess Patient Stated Symptoms : Other: aching KARIE RUSSELL RN - 04/01/2016 21:38 FORMULA CHECKER Source: [place] Document Id: [id number] FORMULA CHECKER!19 ULA CHECKER Tam Hernandez RPasha - 04/01/2016 9:31 PM CST ED Treatments and Procedures ED Treatments and Procedures Entered On: 04/01/2016 21:32 FORMULA CHECKER Performed On: 04/01/2016 21:31 FORMULA CHECKER by TAM HERNANDEZ RN Peripheral IV Peripheral IV Assess/Intervention Grid Peripheral IV #1 IV Activity : Start Number of Attempts : 1 Date of Insertion : 04/01/2016 FORMULA CHECKER IV Site : Wrist Laterality : Left Catheter Size : 18 Catheter Type : Over the needle Site Condition : No complications TAM HERNANDEZ RN - 04/01/2016 21:31 FORMULA CHECKER Source: [place] Document Id: [id number] FORMULA CHECKER!12 ULA CHECKER Niko Nguyen D.O. - 04/01/2016 9:02 PM CST Hematuria Document Contains Addenda Patient: PO ENGLISH Age: 71 years Sex: Male : 1945 Author: NIKO NGUYEN DO Attachments: None Associated Diagnosis: Stone Kidney; Prolonged INR; Aneurysm Abdominal Aortic (AAA) Without Rupture Basic Information Time seen: Date & time 04/01/2016 20:50:00. History source: Patient. Arrival mode: Private vehicle, walking. History limitation: None. Additional information: Chief Complaint from Nursing Triage Note : Chief Complaint Description 04/01/2016 20:44 FORMULA CHECKER Chief Complaint Description 71 y.o. male presents with hematuria of a more constant nature for the past few days. Hx lap tiny in [place] last month. Denies pain or burning, no prostate hx . History of Present Illness The patient presents with 71-year-old male with history of hypertension, Atrial Fibrillation on Coumadin, and cholecystectomy 1 month ago presents with hematuria. Patient states that about 4 weeks ago,soon after his cholecystectomy, he noticed a dark color to his urine. It was intermittent. It resolved for several weeks, but returned about a week ago. It is dark in color, but today was bright red, like sanchez Jesus-Aid, so he came to the emergency department for evaluation. He has not had any abdominal pain or back pain. No bleeding gums or bloody stools. No fevers. Patient's last INR check was about 10 days ago, and was a level 3.1. No dosage adjustments were madeat that time. Patient is new to the area, and does not currently have a primary care provider.. The onset was 4 weeks ago. The course/duration of symptoms is fluctuating in intensity. Character of hematuria blood tinged. The degree at onset was minimal. The degree at present is moderate. The exacerbating factor is none. The relieving factor is none. Risk factors consist of anticoagulated. Prior episodes: none. Therapy today: none. Associated symptoms: denies dysuria, denies frequency, denies pelvic pain, denies abdominal pain, denies flank pain, denies fever, denies chills, denies nausea and denies vomiting. Review of Systems Constitutional symptoms: No fever or no chills. Skin symptoms: No pallor, but no jaundice. Eye symptoms: No diplopia or no blurred vision. ENMT symptoms: No sore throat or no nasal congestion. Respiratory symptoms: No shortness of breath or no cough. Cardiovascular symptoms: No chest pain or no palpitations. Gastrointestinal symptoms: No abdominal pain, no nausea or no vomiting. Genitourinary symptoms: Hematuria, but no dysuria, no discharge or no testicular pain. Musculoskeletal symptoms: No back pain or no Joint pain. Neurologic symptoms: No numbness or no weakness. Hematologic/Lymphatic symptoms: Bleeding tendency. Health Status Allergies: Allergic Reactions (All) Severity Not Documented Meperidine HCl-Promethazine HCl- Facial swellling. Morphine- Vomiting. Canceled/Inactive Reactions (All) Severity Not Documented Phenergan- No reactions were documented.. Medications: (Selected) Documented Medications Documented Diltia XT 180 mg/24 hours oral capsule, extended release: 180 mg, 1 cap(s), PO, Daily Misc Prescription: See Instructions, Digest Basic 1 tab every evening with supper Tikosyn 250 mcg oral capsule: 250 mcg, 1 cap(s), PO, 2xDay Vitamin D3 1000 intl units oral tablet: 1,000 IntU, 1 tab(s), PO, Daily, 30 tab(s) atenolol 25 mg oral tablet: 25 mg, 1 tab(s), PO, 2xDay traMADol 50 mg oral tablet: 50 mg, 1 tab(s), PO, q4hr, As needed for sciatica and knee pain warfarin 2.5 mg oral tablet: See Instructions, 1 tab(s) PO every Tue warfarin 5 mg oral tablet: See Instructions, 1 tab(s) PO every Tue Sat Sun. Past Medical/ Family/ Social History Medical history: Hypertension, Atrial Fibrillation. Surgical history: Cholecystectomy. Family history: No family history items have been selected or recorded.. Social history: Tobacco use: Denies, Drug use: Denies. Physical Examination Vital Signs: Vital Signs 04/01/2016 20:44 FORMULA CHECKER Temperature Core 37.2 DegC Peripheral Pulse Rate 77 /min Respiratory Rate 18 /min SpO2 99 % Systolic Blood Pressure 121 mmHg Diastolic Blood Pressure 82 mmHg Mean Arterial Pressure 95 mmHg BP Location Right upper , Measurements 04/01/2016 20:44 FORMULA CHECKER Height 185.42 cm Height Source Stated Dosing Weight 78.80 kg Actual Weight 78.8 kg Weight Source Standing scale Body Mass Index 22.92 kg/m2 , SpO2 04/01/2016 20:44 FORMULA CHECKER SpO2 99 % . General: Alert and no acute distress. Skin: Warm, dry and pink. Head: Normocephalic and atraumatic. Neck: Supple and trachea midline. Eye: Pupils are equal, round and reactive to light, extraocular movements are intact and normal conjunctiva. Ears, nose, mouth and throat: Oral mucosa moist. Respiratory: Respirations are non-labored. Gastrointestinal: Soft, Nontender, Non distended and Normal bowel sounds. Back: Nontender and Normal range of motion. Musculoskeletal: No tenderness. no swelling. no deformity. Neurological: Alert and oriented to person, place, time, and situation. Psychiatric: Cooperative and appropriate mood & affect. Medical Decision Making OrdersLaunch Orders Laboratory: PT/INR (Order Processing): Stat, 04/01/2016 21:03 FORMULA CHECKER, Once Urinalysis with Culture if Indicated (Order Processing): Stat, 04/01/2016 21:03 FORMULA CHECKER, Once, Urine, Clean Void (Midstream) Comprehensive Metabolic Panel (Order Processing): Stat, 04/01/2016 21:03 FORMULA CHECKER, Once CBC (includes Auto Differential) (Order Processing): Stat, 04/01/2016 21:03 FORMULA CHECKER, Once Radiology: Abd Pelvis CT w/o Contrast (Order Processing): 04/01/2016 21:03 FORMULA CHECKER, hematuria. no pain. Lap tiny 1month ago., Stat, Patient Bed, Once, 04/01/2016 21:03 [facility] Results review:Lab results : Lab View 04/01/2016 21:11 FORMULA CHECKER Hgb 13.2 g/dL LOW Hct 40.5 % WBC 4.6 x10(9)/L RBC 4.30 x10(12)/L LOW MCV 94.2 fL RDW 13.2 % Platelet 208 x10(9)/L Neutro Absolute 2.65 10(9)/L Lymph Absolute 1.39 x10(9)/L [place] Absolute 0.39 x10(9)/L Eos Absolute 0.13 x10(9)/L Baso Absolute 0.02 x10(9)/L Differential? Auto PT 39.8 second(s) HI INR 3.7 INR HI Sodium Lvl 141 mmol/L Potassium Lvl 3.8 mmol/L Chloride 102 mmol/L CO2 29 mmol/L AGAP 10 mmol/L Alkaline Phosphatase 102 U/L Glucose Lvl 147 mg/dL HI Creatinine 0.8 mg/dL EGFR (MDRD) >60.0 mL/min/SA EGFR (MDRD) >60.0 mL/min/SA BUN 17 mg/dL Calcium Lvl 9.1 mg/dL Protein Total 7.6 g/dL Albumin Lvl 4.2 g/dL AST 37 U/L ALT 22 U/L Bili Total 0.5 mg/dL 04/01/2016 21:03 FORMULA CHECKER UA Color Yellow UA Clarity Cloudy UA Spec Grav 1.020 UA pH 8.5 UA Protein 30 mg/dL UA Glucose Negative mg/dL UA Ketones Negative mg/dL UA Bili Negative UA Urobilinogen 0.2 mg/dL UA Blood Large UA Nitrite Negative UA Leuk Est Negative UR WBC Occ-3 /HPF UR RBC >100 /HPF UR % Dysmorphic RBC <=25 % UR Hyaline Cast 4-10 /LPF . Computed tomography (CT)Interpretation by Radiologist, 1. Nonobstructing right renal nephrolithiasis 2. 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 fluid within the ilium that can be seen with enteritis and/or related to constipation given the fecal debris throughout the colon.. Notes:Patient presents to the emergency department with 1 month of intermittent painless hematuria. He is anticoagulated on Coumadin and his INR is slightly supratherapeutic at 3.7. Patient's urinalysis is significant for hematuria but no evidence of a urinary tract infection. Patient's hemoglobin is essentially normal. A CT scan was performed which shows right renal nephrolithiasis. I discussed withpatient that this is likely causing his intermittent hematuria. He is not having any discomfort in his at this time. His renal function is normal. I will refer to Urology for outpatient treatment. Additionally there was an incidental descending aortic aneurysm noted. It is 3.3 cm in size. Had a lengthy discussion with the patient regarding outpatient management and monitoring of his AAA. he does not have a primary care provider currently, and I will provide him with the follow-up information for the clinic. Patient's INR is slightly elevated. Due to his current bleeding, I discussed with patient to hold his Coumadin for the next 2-3 days, and have it rechecked when he follows up in the clinic early next week. Patient is instructed to return to the emergency department immediately if he feels that his symptoms are worsening. He voiced understanding and is agreeable to plan. Will discharge home.. Reexamination/ Reevaluation Course: well controlled. Impression and Plan Diagnosis Aneurysm Abdominal Aortic (AAA) Without Rupture (Discharge, Emergency medicine, Medical) Stone Kidney (Discharge, Emergency medicine, Medical) Prolonged INR (Discharge, Emergency medicine, Medical) Plan Condition: Stable. Disposition: Discharged: Time 04/01/2016 23:05:00, to home. Patient was given the following educational materials: ABDOMINAL AORTIC ANEURYSM (Stable), KIDNEY STONE, Undescended (No Symptoms). Follow up with: ; Follow up with primary care provider Within 3 - 5 days Follow- up with a primary care doctor for re-evaluation and further discussion of your Abdominal Aortic Aneurysm and your slightly elevated INR (warfarin level). Do not take your warfarin tomorrow or Tuesday. Hold it on Tuesday also, if you are still having bloody urine on Tuesday. Call the [place] appointment line to schedule Urology follow up regarding your kidney stone. Return to the emergency department if you feel that your symptoms are worsening.. Counseled: Patient, Regarding diagnosis, Regarding diagnostic results, Regarding treatment plan, Patient indicated understanding of instructions. Orders: Launch Orders Patient Care: Discharge ED Patient (Order Processing): 04/01/2016 23:10 FORMULA CHECKER, Once. Addendum (Comment: Please note this report has been produced using speech recognition software and may contain errors related to that system including errors in grammar, punctuation, and spelling, as well as words and phrases that may be inappropriate. If there are any questions or concerns please feel free tocontact the dictating provider for clarification.) Electronically Signed By: NIKO NGUYEN DO On: 04/02/2016 01:28 AM Modified by and Electronically Signed by: NIKO NGUYEN DO On: 04/01/2016 11:11 PM Source: [facility] [employer] Document Id: [id number] ULA CHECKER Tam Hernandez RPasha - 04/01/2016 8:44 PM CST ED Primary Assessment Document Has Been Updated ED Primary Assessment Entered On: 04/01/2016 20:51 FORMULA CHECKER Performed On: 04/01/2016 20:44 FORMULA CHECKER by TAM HERNANDEZ RN Reason For Visit (As Of: 04/01/2016 20:51:44 FORMULA CHECKER) Diagnoses(Active) Hematuria Date: 04/01/2016 ; Diagnosis Type: Reason For Visit ; Confirmation: Complaint of ; Clinical Dx: Hematuria ; Classification: Medical ; Clinical Service: Emergency medicine ; Code: PNED ; Probability: 0 ; Diagnosis Code: [id number] Triage Chief Complaint Description : 71 y.o. male presents with hematuria of a more constant nature for thepast few days. Hx lap tiny in [place] last month. Denies pain or burning, no prostate hx Information Given By : Patient Present in Room During Exam/Procedure : Alone Mode of Arrival ED : Private vehicle Track : Medical Languages : [place] Islander Vital Signs Assessed : Yes Treatments Prior to Arrival : None Is Patient Female and 13-50 no hysterectomy : No TAM HERNANDEZ RN - 04/01/2016 20:44 FORMULA CHECKER Vital Signs Temperature Core : 37.2 DegC(Converted to: 99.0 DegF) Peripheral Pulse Rate : 77 /min Respiratory Rate : 18 /min Systolic Blood Pressure : 121 mmHg Diastolic Blood Pressure : 82 mmHg NIBP Mean : 95 mmHg BP Location : Right upper extremity SpO2 : 99 % Oxygen Saturation Monitoring Frequency : Intermittent Oxygen Therapy : Room air Height : 185.42 cm(Converted to: 6 ft 1 inch(es)) Actual Weight : 78.8 kg Actual Weight Conversion to Pounds : 173.36 lb Weight Source : Standing scale Height Source : Stated Body Mass Index : 22.92 kg/m2 TAM HERNANDEZ RN - 04/01/2016 20:44 FORMULA CHECKER Pain Assessment Pain Symptoms : No TAM HERNANDEZ RN - 04/01/2016 20:44 FORMULA CHECKER ED Physician Notification Time ED Physician Notification Time : 04/01/2016 20:49 FORMULA CHECKER TAM HERNANDEZ RN - 04/01/2016 20:44 FORMULA CHECKER JOSE ALBERTO JOSE ALBERTO Level 1 : No JOSE ALBERTO Level 2 : No JOSE ALBERTO Level 3 : Many TAM HERNANDEZ RN - 04/01/2016 20:44 FORMULA CHECKER DCP GENERIC CODE Tracking Acuity : 3 -Urgent Tracking Group : MAQN ED TAM HERNANDEZ RN - 04/01/2016 20:44 FORMULA CHECKER Allergy (As Of: 04/01/2016 20:51:44 FORMULA CHECKER) Respiratory Airway : Patent Respirations : Unlabored Respiratory Pattern : Regular TAM HERNANDEZ RN - 04/01/2016 20:44 FORMULA CHECKER Cardiovascular Heart Rhythm : Regular Skin Color : Normal for ethnicity Skin Description : Dry Skin Temperature : Warm TAM HERNANDEZ RN - 04/01/2016 20:44 FORMULA CHECKER Neurological Last Well Time Known : Not applicable Level of Consciousness : Alert Orientation : Oriented x 3 Characteristics of Speech : Clear TAM HERNANDEZ RN - 04/01/2016 20:44 FORMULA CHECKER ED Psychosocial Affect/Behavior : Calm, Cooperative Domestic Abuse Concerns : None Behavioral Health Screen/Safety Assmt : No TAM HERNANDEZ RN - 04/01/2016 20:44 FORMULA CHECKER Gastrointestinal Nutrition ED : Adequate TAM HERNANDEZ RN - 04/01/2016 20:44 FORMULA CHECKER Musculoskeletal Fall Prevention Education Provided : Yes TAM HERNANDEZ RN - 04/01/2016 20:44 FORMULA CHECKER Social Habits Exposure to Tobacco Smoke : Other: former Smoking Status : Former smoker Tobacco 2A : Yes Tobacco Use/Currently Using : No Tobacco Use/Last 30 Days : No Tobacco Use/Last 12 months : No TAM HERNANDEZ RN - 04/01/2016 20:44 FORMULA CHECKER Source: [place] Document Id: [id number] FORMULA CHECKER!68 ULA CHECKER documented in this encounter Miscellaneous Notes Miscellaneous - Karie Russell RSheliaNShelia - 04/01/2016 11:43 PM CST Valuables/Belongings Valuables/Belongings Entered On: 04/01/2016 23:52 FORMULA CHECKER Performed On: 04/01/2016 23:43 FORMULA CHECKER by KARIE RUSSELL RN Valuables/Belongings Room Orientation/Facility Policy Reviewed : Yes Belongings Sent Home With : patient Home Medication Disposition : None brought in with patient KARIE RUSSELL RN - 04/01/2016 23:52 FORMULA CHECKER [facility] Document Id: [id number] FORMULA CHECKER!5 ULA CHECKER Miscellaneous - Geovanni, Historical Provider Ser - 04/01/2016 11:43 PM FORMULA CHECKER Coding Summary-Paper Based CODING DATE: 04/12/2016 FINAL [facility] STATUS: * Discharged to Home or Self Care PAYOR: Medicare ADMIT DX: R31.9 Hematuria, unspecified REASON FOR VISIT DX: R31.9 Hematuria, unspecified FINAL DX: PRINCIPAL: I71.4 Abdominal aortic aneurysm, without rupture SECONDARY: N20.0 Calculus of kidney R79.1 Abnormal coagulation profile Z87.891 Personal history of nicotine dependence Z88.5 Allergy status to narcotic agent status Z88.8 Allergy status to other drugs, medicaments and biological substances status PROCEDURES DOCTOR NAME DATE NOTE: The code number assigned matches the documented diagnosis and / or procedure in the patient's chart. However, the narrative phrase printed from the coding software may appear abbreviated, or result in slightly different terminology. Coded By: VANI DUKE Date Saved: 04/12/2016 08:02 am Source: [facility] [employer] Document Id: [id number] Miscellaneous - Karie Russell RSheliaN. - 04/01/2016 8:40 PM CST Facility Charge Ticket 2.0 11.0 DX Facility Charge Ticket 2.0 11.0 DX Entered On: 04/01/2016 23:52 FORMULA CHECKER Performed On: 04/01/2016 20:40 FORMULA CHECKER by KARIE RUSSELL RN Facility Charge Ticket 2.0 11.0 DX ED Other Charges : Standard ED Encounter TVL Level Translated RTF : Hematuria TVL:3 TVL Level for Facility Charge Ticket : Level 3 Arrival Mode Calc : 1 Mode of Arrival ED : Private vehicle [place] Mode of Arrival Interpreted : Standard [place] Process Management : None Order Management RTF : Laboratory CBC (includes Auto Differential),04/01/16 21:03,NIKO NGUYEN DO Completed Comprehensive Metabolic Panel,04/01/16 21:03,NIKO NGUYEN DO Completed Urinalysis with Culture if Indicated,04/01/16 21:03,NIKO NGUYEN DO Completed PT/INR,04/01/16 21:03,NIKO NGUYEN DO Completed Automated Diff-5 Part,04/01/16 21:18,NIKO NGUYEN DO Completed UR % Dysmorphic RBC,04/01/16 21:19,NIKO NGUYEN DO Completed CT / MRI / Ultrasound CT Stone Protocol,04/01/16 21:03,NIKO NGUYEN DO Ordered [place] Order Management : CT/MRI/Ultrasound, Lab tests 30 Minutes Critical Care : No Nursing Notes RTF : Nursing Notes ED Primary Assessment,04/01/16 20:44,TAM HERNANDEZ [employer] Nurse Reassess,04/01/16 23:15,KARIE RUSSELL [employer] Nurse Reassess,04/01/16 22:12,KARIE RUSSELL [employer] Nurse Reassess,04/01/16 21:38,KARIE RUSSELL RN [facility] Nursing Assessment : Triage and 3-5 nursing assessments [facility] Disposition : Discharge Disposition RTF : discharge [facility] Total Points with Diagnosis Control : 9 [facility] Visit Level : 01390 Level 4 Treatments Prior to Arrival : None KARIE RUSSELL RN - 04/01/2016 23:52 FORMULA CHECKER Source: [facility] [employer] Document Id: [id number] FORMULA CHECKER!19 ULA CHECKER documented in this encounter Plan of Treatment Not on filedocumented as of this encounter Procedures Procedure Name Priority Date/Time Associated Comments Diagnosis AUTOMATED Routine 04/01/2016 9:11 PM Results f or this DIFFERENTIAL, B FORMULA CHECKER procedure ar e in the results section. PROTHROMBIN TIME (PT), Routine 04/01/2016 9:11 PM Results for this P FORMULA CHECKER procedure are i n the results section. CBC WITH DIFFERENTIAL, Routine 04/01/2016 9:11 PM Results for this B FORMULA CHECKER procedure are i n the results section. COMPREHENSIVE Routine 04/01/2016 9:11 PM Results for this METABOLIC PANEL, S/P FORMULA CHECKER procedu re are in the results section. HXUR % DYSMORPHIC RBC Routine 04/01/2016 9:03 PM Results for this FORMULA CHECKER procedure are i n the results section. CT ABDOMEN KIDNEY Routine 04/01/2016 9:03 PM Resu lts for this STONE WITHOUT IV FORMULA CHECKER procedure a re in CONTRAST the results section. URINALYSIS, MIDSTREAM, Routine 04/01/2016 9:03 PM Results for this WITH CULTURE IF FORMULA CHECKER procedure ar e in INDICATED the results section. documented in this encounter Results Automated Differential (04/01/2016 9:11 PM FORMULA CHECKER) athologist Signature Absolute 2.65 1.70 - POWERCHART Neutrophils 7.00 109L Lymphocytes 1.39 0.90 - POWERCHART 2.90 X109L Monocytes 0.39 0.30 - POWERCHART 0.90 X109L Eosinophils 0.13 0.05 - POWERCHART 0.50 X109L Absolute 0.02 0.00 - POWERCHART Basophil 0.30 X109L Specimen Anatomical Collection Method Collection Time Receive d Time (Source) Location / / Volume Laterality Blood 04/01/2016 9:11 PM 6 9:11 FORMULA CHECKER PM FORMULA CHECKER Niko Nguyen D.O. LAB BLOOD ADD-ON Performing Organization Address City/State/ZIP Code Phon e Number POWERCHART (ABNORMAL) PT (Prothrombin Time) with INR (04/01/2016 9:11 PM FORMULA CHECKER) [facility] [employer] Method Time Signature Prothrombin 39.8 (H) 8.8 - 11.9 POWERCHART Time, P SECONDS INR 3.7 (H) 0.9 - 1.2 POWERCHART INR Comment: Recommended INR for prophylaxis/treatmen t of Venous Thrombosis, Pulmonary Embolism, Myocardial Infarction, and Embolism from Atrial Fibrillation is 2.0- 3.0 (Standard Therapy) Recommended INR for Mechanical Heart Estela ves and recurrent Systemic Embolism is 2.5-3.5 (Intensive Therapy) Specimen (Source) Anatomical Collection Method Collection Time Re ceived Time Location / / Volume Laterality Blood 04/01/2016 9:11 PM FORMULA CHECKER Niko Nguyen D.O. LAB BLOOD ADD-ON Performing Organization Address City/State/ZIP Code Phon e Number POWERCHART (ABNORMAL) CBC with Differential (04/01/2016 9:11 PM FORMULA CHECKER) [facility] [employer] Method Time Signature Leukocytes 4.6 3.5 - 10.5 POWERCHART X109L Erythrocytes 4.30 (L) 4.32 - POWERCHART 5.72 B5961V Hemoglobin 13.2 (L) 13.5 - POWERCHART 17.5 GDL Hematocrit 40.5 38.8 - POWERCHART 50.0 MCV 94.2 81.2 - POWERCHART 95.1 FL HX RDW 13.2 11.8 - POWERCHART 15.6 Platelet Count 208 150 - 450 POWERCHART X109L HXDifferential? Auto POWERCHART Specimen (Source) Anatomical Collection Method Collection Time Re ceived Time Location / / Volume Laterality Blood 04/01/2016 9:11 PM FORMULA CHECKER Niko Nguyen D.O. LAB BLOOD ADD-ON Performing Organization Address City/State/ZIP Code Phon e Number POWERCHART (ABNORMAL) CMP (Comprehensive Metabolic Panel) (04/01/2016 9:11 PM FORMULA CHECKER) [facility] gist Method Time Signature Alanine 22 7 - 55 UL POWERCHART Amniotransferase, LD Albumin, S 4.2 3.5 - 5.2 POWERCHART GDL Alkaline 102 40 - 130 POWERCHART Phosphatase, S UL Aspartate 37 8 - 48 UL POWERCHART Aminotransferase (AST), S Sodium, S 141 135 - 145 POWERCHART MMOLL Potassium, S 3.8 3.5 - 5.1 POWERCHART MMOLL Chloride, S 102 98 - 107 POWERCHART MMOLL CO2 Total 29 22 - 29 POWERCHART MMOLL BUN (Blood Urea 17 6 - 24 POWERCHART Nitrogen), S MGDL Creatinine 0.8 0.8 - 1.3 POWERCHART MGDL Calcium, Total, S 9.1 8.8 - 10.3 POWERCHART MGDL Anion Gap 10 7 - 15 POWERCHART MMOLL HXeGFR (MDRD) >60.0 >=60.0 POWERCHART MLMINSA eGFR Black/ >60.0 >=60.0 POWERCHART [place] MLMINSA Bilirubin, Total, S 0.5 <=1.2 MGDL POWERCHAR T Total Protein, S 7.6 6.3 - 7.9 POWERCHART GDL Glucose 147 (H) 70 - 140 POWERCHART MGDL Specimen (Source) Anatomical Collection Method Collection Time Re ceived Time Location / / Volume Laterality Blood 04/01/2016 9:11 PM FORMULA CHECKER Niko Nguyen D.O. LAB BLOOD ADD-ON Performing Organization Address City/State/ZIP Code Phon e Number POWERCHART HXUR % DYSMORPHIC RBC (04/01/2016 9:03 PM FORMULA CHECKER) athologist Signature Dysmorphic RBC <=25 <=25 POWERCHART Specimen Anatomical Collection Method Collection Time Receive d Time (Source) Location / / Volume Laterality Urine, First 04/01/2016 9:03 PM 6 9:03 Voided FORMULA CHECKER PM FORMULA CHECKER Niko Nguyen D.O. LAB HISTORICAL ORDERS Performing Organization Address City/[facility] Phon e Number POWERCHART (ABNORMAL) Urinalysis, Midstream, with culture if indicated (04/01/2016 9:03 PM FORMULA CHECKER) [facility] gist Method Time Signature HXUr Color Yellow Colorless POWERCHART Clarity Cloudy (A) Clear POWERCHART Glucose Negative Negative POWERCHART MGDL HXBILIRUBIN Negative Negative POWERCHART Ketones, QL(U) Negative Negative POWERCHART MGDL Specific 1.020 POWERCHART [place], POCT, U Comment: Reference Range Specific [place]: 1.000-1.035 HXBLOOD Large (A) Negative POWERCHART pH, POCT, Urine 8.5 (A) <5.0 POWERCHART Comment: Reference Range pH: 5.0-8.0 Protein, Ur, Dip 30 (A) Negative MGDL POWERCHAR T Urobilinogen 0.2 0.2 MGDL POWERCHART Comment: Reference Range Urobilinogen: 0.2-1.0 mg/dL HXNITRITE Negative Negative POWERCHART Leukocyte Esterase Negative Negative POWERCHART HXUR WBC. Occ-3 None Seen HPF POWERCHART HXUR RBC. >100 (A) None Seen HPF POWERCHART Casts, Hyaline 4-10 (A) None Seen LPF POWERCHART Specimen (Source) Anatomical Collection Method Collection Time Re ceived Time Location / / Volume Laterality Urine, First 04/01/2016 9:03 PM Voided FORMULA CHECKER Niko Nguyen D.O. LAB URINE ORDERABLES Performing Organization Address City/[facility] Phon e Number POWERCHART CT Abdomen Kidney Stone without IV Contrast (04/01/2016 9:03 PM FORMULA CHECKER) Anatomical Region Laterality Modality Abdomen, Pelvis Computed Tomography Specimen (Source) Anatomical Collection Method Collection Time Re ceived Time Location / / Volume Laterality 04/01/2016 9:03 PM FORMULA CHECKER Addenda Addendum by Provider, Isaias Mo 04/01/2016 9:03 PM FORMULA CHECKER RAD^^^MA CT Stone Protocol 04/01/2016 21:03:00 Narrative 04/02/2016 7:40 AM FORMULA CHECKER Exam: CT of abdomen and pelvis History: ?? Hematuria, no pain, history of laparoscopic cholecystectomy. Comparison: None Technique: CT of the abdomen and pelvis without IV contrast and oral contrast. Images were obtained from base of lungs to below the pelvis. The images were interpreted in b one, abdominal, and lung windows. Findings: There is a right renal collect ing system stone. There is no ureteral lithiasis. There are multiple p rosthetic calcifications noted. Lung bases are clear. There is a small left renal cyst. The upper abdominal organs are otherwise nor mal on this noncontrast study. There is no upper abdominal adeno nigel. The aorta is tortuous with mild atherosclerotic disease. There is trace free fluid in the deep pelvis. There is moderate stool wit hin the colon. The appendix has been removed. There is no abdominal or pelvic adenopathy. There is no abnormally enlarged large or small bowel. There is scoliosis of the lumbar spine. Impression: 1. No acute abdominal pathology. 2. Nonobstructing right renal stone. I agree with [facility] preliminary report. Procedure Note Dutch Toledo M.D. / Provider, Jared palafox M.D. - 09/04/2016 Exam: CT of abdomen and pelvis History: Hematuria, no pain, history of laparoscopic cholecystectomy. Comparison: None Technique: CT of the abdomen and pelvis without IV contrast and oral contrast. Images were obtained from base of lungs to below the pelvis. The images were interpreted in b one, abdominal, and lung windows. Findings: There is a right renal collect ing system stone. There is no ureteral lithiasis. There are multiple p rosthetic calcifications noted. Lung bases are clear. There is a small left renal cyst. The upper abdominal organs are otherwise nor mal on this noncontrast study. There is no upper abdominal adeno nigel. The aorta is tortuous with mild atherosclerotic disease. There is trace free fluid in the deep pelvis. There is moderate stool wit hin the colon. The appendix has been removed. There is no abdominal or pelvic adenopathy. There is no abnormally enlarged large or small bowel. There is scoliosis of the lumbar spine. Impression: 1. No acute abdominal pathology. 2. Nonobstructing right renal stone. I agree with [facility] preliminary report. Leslie Howard(R)(CT), R.T.(R)(M) IMG CT PROCEDURE S documented in this encounter Visit Diagnoses Not on filedocumented in this encounter
--- OUTSIDE RECORDS SUMMARY | 2022-03-05 03:05 | XMS_ITS | Clinical Summary ---
:1945 Author Organization [facility] Address [address] [place] [address] Care Team Providers Name Role Phone Aravind Decker MD Primary Care Provider Source Comments You are receiving this document as you are listed as the primary care provider,follow-up provider, or the patient has been referred to you for consultation.This is in compliance with the Medicare and Medicaid EHR Incentive Program,which states Providers who transition their patient to another setting of careor provider of care or refers their patient to another provider of care shouldprovide summarycare record for each transition of care or referral. [employer] Allergies Active Allergy Reactions Severity Noted Date Comments Meperidine Angioedema High 01/11/2014 GIVEN WITH PHEN ERGAN Morphine Gastrointestinal 01/11/2014 VOMITING WI TH ANY MOVEMENT Dronedarone Other, see comments 01/11/2014 SHORT OF BREATH, NERVOUS, TWITCHY Phenothiazines Angioedema High 01/11/2014 GIVEN WITH DE MEROL Medications Medication Sig Dispensed Refills Start End Date Status Date dofetilide (TIKOSYN) Take 250 mcg by mouth 0 Active 250 MCG every 12 hours. capsuleIndications: Indications: Atrial Atrial Fibrillation Fibrillation ATENolol (AKA Take 25 mg by mouth 0 Active TENORMIN) 25 MG every morning. tabletIndications: Indications: High Hypertension, Blood Pressure, Supraventricular Supraventricular Cardiac Arrhythmia Cardiac Arrhythmia diltiazem CD coated Take 120 mg by mouth 0 Active beads (CARDIZEM CD) daily. Before 120 MG 24 hour breakfast release capsule DIAZEpam (AKA VALIUM) Take 2 mg by mouth 0 Active 5 MG tablet daily as needed for Anxiety. Hasn't had for months cholecalciferol Take 1,000 Units by 0 Active (VITAMIN D3) 1000 mouth two times a day UNITS tablet with meals. Magnesium-Zinc Take 1 Tab by mouth 0 Active 133.33-5 MG TABS daily. H&P says Magnesium 250mg BID verify warfarin (AKA Take 2.5 mg by mouth 0 Active COUMADIN) 2.5 MG every evening. At 5 tablet pm on Mondays, Wednesdays, & Fridays warfarin (AKA Take 5 mg by mouth 0 Active COUMADIN) 5 MG tablet daily. At 5pm on Sundays, Tuesdays, & Saturdays sildenafil (AKA Take 50 mg by mouth. 0 Active VIAGRA) 50 MG As needed for ED. tabletIndications: Take 30 min to 4 Erectile Dysfunction hours prior to sexual activity. Max of 100mg per 24 hours Indications: Erectile Dysfunction DIGESTIVE ENZYMES OR Take 1 Cap by mouth 0 Active daily. Before supper ondansetron (AKA Take 4 mg by mouth 0 Active ZOFRAN) 4 MG every 6 hours as disintegrating tablet needed for Nausea (or vomiting). Pt not taking anymore SUMAtriptan (AKA Take 100 mg by mouth 0 Active IMITREX) 50 MG tablet once as needed (for migraine.). Max dose of 200mg per 24 hours magnesium oxide (AKA Take 1 mg by mouth 0 Active MAG-OX 400) 250 MG two times a day with tablet meals. oxyCODONE-acetaminoph Take 1-2 Tabs by 65 Tab 0 Active en (AKA PERCOCET) mouth every 4 hours 4 5-325 MG tablet as needed for Pain. cefuroxime (CEFTIN) TAKE 1 TABLET BY 10 Tablet 0 Active 500 MG tablet MOUTH TWO TIMES A DAY 1 22 FOR 5 DAYS. INDICATIONS: COMMUNITY ACQUIRED PNEUMONIA doxycycline TAKE 1 CAPSULE BY 10 Capsule 0 04/20/20 Active monohydrate (MONODOX) MOUTH TWO TIMES A DAY 1 22 100 MG capsule FOR 5 DAYS. INDICATIONS: COMMUNITY ACQUIRED PNEUMONIA Active Problems No known active problems Immunizations Name Administration Dates Next Due Influenza, Unspecified Formulation 04/05/2013 PPSV23 (Pneumovax) 04/05/2013 Td 05/06/2004 Social History Tobacco Use Types Packs/Day Years Used Date Smoking Tobacco: Former Cigarettes Quit : 05/02/1965 Alcohol Use Standard Drinks/Week Comments No 0 (1 standard drink = 0.6 oz pure alcoho l) QUIT 14 YEARS AGO Sex Assigned at Date Recorded Not on file Last Filed Vital Signs Vital Sign Reading Time Taken Comments Blood Pressure 110/57 04/20/2021 5:22 AM [employer] Pulse 96 04/20/2021 5:22 AM [employer] Temperature 36.9 ??C (98.5 ??F) 04/20/2021 2:42 AM [employer] Respiratory Rate 24 04/20/2021 5:22 AM [employer] Oxygen Saturation 96% 04/20/2021 5:22 AM [employer] Inhaled Oxygen Concentration - - Weight 73.5 kg (162 lb) 04/20/2021 2:42 AM [employer] Height 182.9 cm (6') 04/20/2021 2:42 AM [employer] Body Mass Index 21.97 04/20/2021 2:42 AM [employer] Plan of Treatment Health Maintenance Due Date Last Done Comments Hep C Screening (Preventive 1945 Services) Medicare Annual Wellness 1945 Visit COVID-19 Vaccine (#1) 1945 Zoster/Shingles (1 of 2) 01/13/1996 Influenza (#1) 2021 02/26/2019, 02/16/2018, 02/16/2018, Additional history exists DTaP/Tdap/Td (2 - Tdap) 06/16/2028 06/16/2018, 01/30/2005, 05/06/2004 Pneumococcal 65+ Yrs Completed 01/20/2015, 04/05/2013, 06/02/2012 HepA Aged Out No longer eligib le based on patient 's age to complete this topic HepB Aged Out No longer eligib le based on patient 's age to complete this topic Hib Aged Out No longer eligib le based on patient 's age to complete this topic IPV (Polio) Aged Out No longer eligib le based on patient 's age to complete this topic MCV4 Aged Out No longer eligib le based on patient 's age to complete this topic Medical Devices Implanted Type Area Interpretive Program Coordinator Device Shelf Model / Identifier Expiration Serial / Lot Date Baseplt Tib Metl Gensis Rt [id number] - [id number] DEVICE Right: [employer] 04/30/2023 [id number] / Implanted: Qty: 1 on 01/15/2014 by Vini Duffy MD at [facility] NA / [id number] Insurance Payer Benefit Plan / Subscriber ID Effective Dates Phone Addre ss Type Group MEDICARE MEDICARE [id number] 2010-Abner [phone] ATTN CL AIMS Medicare t 0 [address] [place] [address] MEDICA MEDICA [place] [id number] 2021-Dez [facility] ASSISTED nt PLUS [employer] Personal/Family Self 1945 [address] [place] [id number] [employer] Personal/Family Self 1945 [address] [place] [address] [employer] Personal/Family Self 1945 [address] [facility] [address] Advance Directives Latest Code Status on File Code Status Date Activated Date Inactivated Comments Full Code 01/15/2014 4:23 PM 01/17/2014 3:47 PM Full Code 01/15/2014 11:27 AM 01/15/2014 4:23 PM Care Teams Benefit Authorizer Relationship Specialty Start Date End Date Aravind Decker MD PCP - General Family Practice 01/14/[address] [place] [place] [address]
--- OUTSIDE RECORDS SUMMARY | 2022-03-05 03:05 | XMS_ITS | Encounter Summary ---
:1945 Author Organization [facility] Address [address] [place] [address] Care Team Providers Name Role Phone Unavailable Primary Care Provider Unavailable Reason for Visit Reason Comments Breathing Problem Encounter Details Date Type Department Care Team Description 05/09/2021 Nurse Triage Department of Beckie Cooper, Breathing Problem Medicine in [place], [place] [address] [place] [address] [id number] [phone] Social History Tobacco Use Types Packs/Day Years Used Date Smoking Tobacco: Former Alcohol Habits Answer Date Recorded How often [...] or relatives? How often do you attend restoration or Patient refused 2021 mosque services? Do you belong to any clubs or No 08/31/2021 organizations such as restoration groups, unions, fraternal or athletic groups, or [...] months, how many places have you lived? [id number] 08/31/2021 In the last 12 months, was there a time when you did No 08/31/[address] to sleep or slept in a care home (including now)? Sex Assigned at Date Recorded Not on file documented as of this encounter Miscellaneous Notes Telephone Encounter - Beckie Villafuerte R.N. - 05/09/2021 9:57 AM TOOL ROOM SUPERVISOR Chief Complaint / Reason for Call Patient is a 76 y.o. male calling regarding Breathing Problem. Assessment Concern: Very short of breath even at rest. In A. Flutter and has been for weeks. Had open heart surgery for AAA over a month ago at [facility]. Reports some chest pain that did not feel like incisional pain earlier this morning. Present for: Weeks, and worsening Home cares tried: None noted Calling to request: Information about hospital bed availability. The recommended disposition is Go to ED Now. Care Advice Patient/Caregiver understands and will follow care advice?: Yes, able to teach back GO TO ED NOW: * You need to be seen in the Emergency Department. * Leave now. DRIVING: * Another adult should drive. * If immediate transportation is not available via car or taxi, then the patient should be instructed to call [phone]. CALL EMS 911 IF: * Call EMS if you become worse. Reason for Disposition ??? [1] MODERATE difficulty breathing (e.g., speaks in phrases, SOB even at rest, pulse 100-120) AND[2] NEW-onset or WORSE than normal ??? Extra heart beats OR irregular heart beating (i.e., palpitations) Protocols used: BREATHING [id number] ROOM SUPERVISOR documented in this encounter Plan of Treatment Not on filedocumented as of this encounter Visit Diagnoses Not on filedocumented in this encounter
--- OUTSIDE RECORDS SUMMARY | 2022-03-05 03:05 | XMS_ITS | Encounter Summary ---
:1945 Author Organization [facility] Address [address] [place] [address] Care Team Providers Name Role Phone Unavailable Primary Care Provider Unavailable Encounter Details Date Type Department Care Team Description 11/28/2000 Hospital Encounter [facility]X [facility] Celestino Oliver M.D. [address] [place], [place] [address] (Wo rk) Social History Tobacco Use Types [...] or relatives? How often do you attend samaritan or Patient refused 2021 taoist services? Do you belong to any clubs or No 08/31/2021 organizations such as samaritan groups, unions, fraternal or athletic groups, or [...] months, how many places have you lived? [id number] 08/31/2021 In the last 12 months, was there a time when you did No 08/31/[address] to sleep or slept in a alf (including now)? Sex Assigned at Date Recorded Not on file documented as of this encounter Plan of Treatment Not on filedocumented as of this encounter Visit Diagnoses Not on filedocumented in this encounter
--- OUTSIDE RECORDS SUMMARY | 2022-03-05 03:06 | XMS_ITS | Encounter Summary ---
:1945 Author Organization [employer] Address [address] [place] [address] Care Team Providers Name Role Phone Aravind Decker MD Primary Care Provider Reason for Visit Auth/Cert - Closed Specialty Diagnoses / Procedures Referred By Contact Refer red To Contact Diagnoses RT, MINIMALLY INVASIVE TOTAL JOINT REPLACEMENT KNEE DJD Procedures MINIMALLY INVASIVE TOTAL JOINT REPLACEMENT KNEE Referral ID Status Reason Start Date Expiration Date Visits Requ ested Visits Authorized [id number] Closed 1 1 Encounter Details Date Type Department Care Team Description 01/15/2014 Surgery LV Operating Room Vini Duffy MD MINIMALLY INVASIVE [address] [place] [address] [place] [address] [place], [place] KNEE [phone] (Wo rk) Social History Tobacco Use Types Packs/Day Years Used Date Smoking Tobacco: Former Cigarettes Quit : 05/02/1965 Alcohol Use Standard Drinks/Week Comments No 0 (1 standard drink = 0.6 oz pure alcoho l) QUIT 14 YEARS AGO Sex Assigned at Date Recorded Not on file documented as of this encounter Last Filed Vital Signs Vital Sign Reading Time Taken Comments Blood Pressure 121/69 01/15/2014 12:00 PM CDT Pulse 63 01/15/2014 12:00 PM CDT Temperature 36.8 ??C (98.3 ??F) 01/15/2014 12:00 PM CDT Respiratory Rate 16 01/15/2014 12:00 PM CDT Oxygen Saturation 100% 01/15/2014 12:00 PM CDT Inhaled Oxygen Concentration - - Weight 78.9 kg (174 lb) 01/11/2014 12:00 PM CDT Height 185.4 cm (6' 1) 01/11/2014 12:00 PM CDT Body Mass Index 22.96 01/11/2014 12:00 PM CDT documented in this encounter Discharge Summaries Esther Luz PA-C - 01/17/2014 11:50 AM CDT [facility] Orth[facility] Discharge Summary Admit Date: 01/15/2014 10:22 AM Discharge Date: 01/17/2014 Post-Operative Day: 2 Days Post-Op Reason for admission: The patient was admitted for the following:Procedure(s) (LRB): MINIMALLY INVASIVE TOTAL JOINT REPLACEMENT KNEE (Right) Pre-Op Diagnosis Codes: * DJD (degenerative joint disease) [715.90] Following the procedure noted above the patient was transferred to the post-op floor and started on: Therapy: Physical Therapy and WBAT Anticoagulation Medications: Coumadin: Other home dosing Pain Management: Percocet Complications: none Consultations: none Lab Results: Recent Labs 01/15/14 1155 01/16/14 0655 01/17/14 0700 HGB 13.4* 11.2* 10.5* PLTS 303 -- -- INR 1.2* 1.3* 1.4* Comorbidities/Patient Active Hospital Problem List: There is no problem list on file for this patient. Discharge Information: Condition at discharge: Nutritional intake adequate, No nausea or vomiting, Vital signs stable, voiding and Wound clean and Intact Discharge destination: Home Medications at discharge: Discharge Medication List as of Today: Current Discharge Medication List START taking these medications Details oxyCODONE-acetaminophen (AKA PERCOCET) 5-325 MG tablet Take 1-2 Tabs by mouth every 4 hours as needed for Pain. Qty: 65 Tab, Refills: 0 CONTINUE these medications which have NOT CHANGED Details ATENolol (AKA TENORMIN) 25 MG tablet Take 25 mg by mouth every morning. Indications: High Blood Pressure, Supraventricular Cardiac Arrhythmia cholecalciferol (VITAMIN D3) 1000 UNITS tablet Take 1,000 Units by mouth two times a day with meals. DIAZEpam (AKA VALIUM) 5 MG tablet Take 2 mg by mouth daily as needed for Anxiety. Hasn't had for months DIGESTIVE ENZYMES OR Take 1 Cap by mouth daily. Before supper diltiazem CD coated beads (CARDIZEM CD) 120 MG 24 hour release capsule Take 120 mg by mouth daily. Before breakfast dofetilide (TIKOSYN) 250 MCG capsule Take 250 mcg by mouth every 12 hours. Indications: Atrial Fibrillation magnesium oxide (AKA MAG-OX 400) 250 MG tablet Take 1 mg by mouth two times a day with meals. Magnesium-Zinc 133.33-5 MG TABS Take 1 Tab by mouth daily. H&P says Magnesium 250mg BID verify ondansetron (AKA ZOFRAN) 4 MG disintegrating tablet Take 4 mg by mouth every 6 hours as needed for Nausea (or vomiting). Pt not taking anymore sildenafil (AKA VIAGRA) 50 MG tablet Take 50 mg by mouth. As needed for ED. Take 30 min to 4 hours prior to sexual activity. Max of 100mg per 24 hours Indications: Erectile Dysfunction SUMAtriptan (AKA IMITREX) 50 MG tablet Take 100 mg by mouth once as needed (for migraine.). Max doseof 200mg per 24 hours !! warfarin (AKA COUMADIN) 2.5 MG tablet Take 2.5 mg by mouth every evening. At 5 pm on Mondays, Wednesdays, & Fridays !! warfarin (AKA COUMADIN) 5 MG tablet Take 5 mg by mouth daily. At 5pm on Sundays, Tuesdays, & Saturdays !! - Potential duplicate medications found. Please discuss with provider. Follow-Up Care: The patient will be followed in the office in 2 weeks Comments: INR/PROTIME Standing Status: Future Standing Exp. Date: 02/16/14 Procedure(s) (LRB): MINIMALLY INVASIVE TOTAL JOINT REPLACEMENT KNEE (Right) Diagnosis Right knee DJD Your first outpatient INR blood draw should be on (date) Thursday 01/18 and then two times per week thereafter, preferably on Mondays and , while on Comumadin/warfarin. Call INR results to PCP Is patient on Coumadin? Yes Does the Patient have a mechanical heart valve? No Orthopaedic/Sports Med Consult Adult/Peds Follow up with your doctor - [facility] in 2 weeks Reason for visit? Post Surgical Physical Therapy Procedure(s) (LRB): MINIMALLY INVASIVE TOTAL JOINT REPLACEMENT KNEE (Right) Physical Therapy 2 times per week If scheduling assistance is needed, please inquire with the medical office staff upon exiting your appointment or contact the ordering clinic for recommended locations. This recommended service/s may not be covered by your insurance coverage. To find out your specific benefit coverage, please call thenumber on your insurance card. Requested Services Evaluate and treat Eval and ADL training Reason for Visit / Clinical Data? Post-Operative Appointment Urgency? Urgent (patient needs to be seen within one week) NAME: Esther Luz PA-C PHONE NUMBER: [phone] For information about patient referrals and other discharge orders, please see Discharge Instructions or the Other Orders tab in Chart Review. --End of Report-- documented in this encounter Discharge Instructions Discharge InstructionsIrina Rodriguez RN - 01/17/2014 10:21 AM CDT Contact Information [address] [address] Main or [phone] Same Day Surgery, M-F 7am to 5pm: [phone] Clinic Phone Numbers [facility] [phone] [facility] [phone] Emergency & Urgently Needed Care: For emergencies call 911 and/or get medical help right away. If you are a [facility] member and have medical needs after clinic hours you may call the [facility] [phone] or . Healthy Habits - Move! Aim for fitness every day - Decrease consumption of fried and high-fat foods - Enjoy whole grains (bread, cereals, etc.) with at least 3 grams of fiber per serving - Talk with your physician before you start an exercise program - Choose whole foods over processed foods - Drink 8 to 10 glasses (8 oz.) of water daily - Choose a diet rich in fruits and vegetables - If you drink alcohol, do so only in moderation - Choose healthy sources of fat: Powersite, peanut or canola oils, 1/4 cup nuts - Include calcium-rich foods at every meal (milk, yogurt, etc.). - Don't smoke or use tobacco products General Medication Information: - Learn the names of your medicine, the reasons you are taking them and major side effects - Get all prescriptions filled - Take the medicine at the time and in the amount directed by your doctor - Ask your doctor/pharmacist if it is safe to take wayl-eku-gulhgeo drugs or herbs with your prescribed medicine. - Report any reactions or side effects to your doctor - Do not mix medicines in one bottle - Do not take outdated medicines Stroke Warning Signs and Symptoms: Call immediately if you experience any of these symptoms: ?? Sudden weakness or numbness of the face, arm or leg, especially on one side of the body ?? Sudden confusion, trouble speaking or understanding ?? Sudden trouble seeing in one or both eyes ?? Sudden trouble walking, dizziness, loss of balance or coordination ?? Sudden, severe headaches with no known cause Weight Management: Weight is an important indicator of health that can assist you and your physician in managing your self-care. It is desirable for everyone to maintain a weight that is suitable to your height, age, activity level, and, in some cases, to illness. The following suggestions can assist you in managing this important health indicator: For all Medical-Surgical patients: Weigh yourself regularly on the same scale at the same time of day. Keep track of trends and report them to your physician. Ask what your ideal weight should be. For those with heart failure, liver failure or kidney failure (not on dialysis): Weigh yourself every day, the same way, on the same scale and in the same clothing. (We suggest in the morning, after going to the bathroom and before taking your medications.) Call your doctor or nurse if you gain more than 3 pounds per day or if you gain more than 5 pounds in a week. For those with kidney failure on dialysis: Keep track of your weight from one dialysis treatment to the next. You should keep weight gains to less than 2 pounds per day and no more than 5 pounds between dialysis runs. Your weight will also be followed by the Trader when you go in for your treatment. Special Instruction: Activities: Resume normal activities gradually and as tolerated Activities per MD instructions until next clinic appointment No driving for 24 hours after surgery or while taking narcotics Ice to surgery site for 30 minutes 3-4 times per day for pain/swelling Diet: Resume pre-hospital diet, progress slowly Wound/Incision: Cover incision with gauze Follow surgery specific instructions May shower starting tomorrow IF INCISION DRY AND INTACT Friendship present: when showering REMOVE outer gauze dressing, shon can get wet in the shower. Shower as usual, after showering pat incision area dry with a clean towel then allow site to air dry for at least 30 mintues before applying new dressing. DO NOT SOAK INCISION - NO TUB BATHING, HOT TUBBING,OR SWIMMING UNTIL WOUND IS COMPLETELY HEALED AND OK'D BY MD. Information given on: Treatment, diagnosis, surgery Coumadin Danger signs to watch for: Temperature above 101 degrees and/or chills Increased redness, drainage or swelling Persistent nausea Increased warmth, redness, swelling or pain in either leg Increased pain in surgical site or affected area We hope you had a positive experience and that you can definitely recommend [facility] to your family and friends. AttachmentsThe following attachments cannot be sent through Care Everywhere. TOTAL KNEE REPLACEMENT SURGERY : GENERAL INFO (MALTESE)documented in this encounter Medications at Time of [...] & Saturdays documented as of this encounter Progress Notes Esther Luz PA-C - 01/17/2014 12:34 PM CDT [facility] Ortho Progress Note Date of service: 01/17/2014 Procedure(s): MINIMALLY INVASIVE TOTAL JOINT REPLACEMENT KNEE Post-operative Day:2 Days Post-Op Subjective: Doing well. No complaints. Pain: Tolerable with percocet Chest pain, SOB: No Objective: Vitals: Patient Vitals for the past 8 hrs: BP Temp Temp src Pulse Resp SpO2 01/17/14 0730 104/54 mmHg 97.2 ??F (36.2 ??C) Temporal Art 64 16 99 % Wound status: clean, dry, intact Circulation, motion and sensation: intact Left and right calf tenderness: none Recent Labs 01/16/14 0655 01/17/14 0700 HGB 11.2* 10.5* INR 1.3* 1.4* Plan: Discharge to home after completion of therapy. F/U with [facility] in 2 weeks. Report Completed by: Esther Luz PA-C --- End of Report --- William Lj Lisa - 01/17/2014 9:47 AM CDT [facility] Spirit[facility] Patients: Spiritual support provided by [employer]. Lj Thomas - 01/16/2014 11:22 AM CDT [facility] Spirit[facility] Patients: Spiritual support provided by [employer]. Vinnie Ventura PA-C - 01/16/2014 9:32 AM CDT [facility] Orthopaedics Progress Note Post-operative Day: 1 Day Post-Op Surgical Procedures: Procedure(s) (LRB): MINIMALLY INVASIVE TOTAL JOINT REPLACEMENT KNEE (Right) Diagnosis: RT, MINIMALLY INVASIVE TOTAL JOINT REPLACEMENT KNEE DJD Subjective: Pain: mild Chest pain, SOB: No Objective: Vital signs in last 24 hours His height is 6' 1 (1.854 m) and weight is 78.926 kg (174 lb). His oral temperature is 97.7 ??F (36.5 ??C). His blood pressure is 104/63 and his pulse is 65. His respiration is 16 and oxygen saturation is 98%. His body mass index is 22.96 kg/(m^2). Motor function, sensation, and circulation intact: Yes Wound status: dressing dry and intact Calf tenderness: Right None Recent Labs Recent Labs 01/15/14 1155 01/16/14 0655 INR 1.2* 1.3* WBC 6.4 -- HGB 13.4* 11.2* HCT 40.6* -- PLTS 303 -- Plan: Continue cares and rehabilitation Anticoagulation protocol: Coumadin: INR to be checked and dose adjusted x 14 days Pain medications: Percocet Weight bearing status: WBAT Disposition: Home Tomorrow Urology to follow for catheter Report completed by: Vinnie Ventura PA-C Date: 01/16/2014 Time: 9:33 AM Sinan De La Rosa MD - 01/15/2014 4:12 PM CDT [facility] Post-Operative Anesthesia Note Admit Date/Time: 01/15/2014 10:22 AM Attending Prov: Vini Duffy MD Post-Op Diagnosis Codes: * DJD (degenerative joint disease) [715.90] Procedure(s): MINIMALLY INVASIVE TOTAL JOINT REPLACEMENT KNEE Respiratory Function: Satisfactory Airway Patency: Patent Cardiovascular Function: Satisfactory Post-op Hydration: Satisfactory PONV: None Level of Consciousness: Awake Post Op Status: Filed Vitals: 01/15/14 1540 01/15/14 1555 01/15/14 1600 01/15/14 1610 BP: 125/69 118/71 118/69 Pulse: 70 66 67 Temp: 97.2 ??F (36.2 ??C) 97.2 ??F (36.2 ??C) TempSrc: Resp: Height: Weight: SpO2: 98% 98% 96% 96% Pain Rating: Rest: 3 Patient participates in evaluation: Mental status recovered: Yes. Anesthetic Complications: No apparent anesthesic related complications. Report completed by: Sinan De La Rosa MD --- End of Report --- Sinan De La Rosa MD - 01/15/2014 11:30 AM CDT [facility] Pre-Anesthesia Evaluation and Plan Surgery Date: 01/15/2014 Age: 69 year(s) No data found. Height: 01/11/14 : 6' 1 (1.854 m) Weight: Wt Readings from Last 1 Encounters: 01/11/14 174 lb (78.926 kg) Allergies Allergen Reactions ??? Demerol [Meperidine] Angioedema GIVEN WITH PHENERGAN ??? Phenergan [Phenothiazines] Angioedema GIVEN WITH DEMEROL ??? Morphine Gastrointestinal VOMITING WITH ANY MOVEMENT ??? Multaq [Dronedarone] Other, see comments SHORT OF BREATH, NERVOUS, TWITCHY Prior to Admission Medications Prescriptions Last Dose Informant Patient Reported? Taking? ATENolol (AKA TENORMIN) 25 MG tablet Yes Yes Sig: Take 25 mg by mouth daily. BID? Indications: High Blood Pressure, Supraventricular Cardiac Arrhythmia DIAZEpam (AKA VALIUM) 5 MG tablet Yes Yes Sig: Take 5 mg by mouth every 6 hours as needed for Anxiety. H&P says 2mg qd prn for anxiety DIGESTIVE ENZYMES OR Yes Yes Sig: Take 1 Cap by mouth daily. Before a meal Magnesium-Zinc 133.33-5 MG TABS Yes Yes Sig: Take 1 Tab by mouth daily. H&P says Magnesium 250mg BID verify SUMAtriptan (AKA IMITREX) 50 MG tablet Yes Yes Sig: Take 50-100 mg by mouth once as needed (for migraine.). Max dose of 200mg per 24 hours cholecalciferol (VITAMIN D3) 1000 UNITS tablet Yes Yes Sig: Take 1,000 Units by mouth two times a day. H&P says 2000iu QD, verify diltiazem CD coated beads (CARDIZEM CD) 120 MG 24 hour release capsule Yes Yes Sig: Take 120 mg by mouth daily. Before a meal dofetilide (TIKOSYN) 250 MCG capsule Yes Yes Sig: Take 250 mcg by mouth two times a day. Indications: Atrial Fibrillation ondansetron (AKA ZOFRAN) 4 MG disintegrating tablet Yes Yes Sig: Take 4 mg by mouth every 6 hours as needed for Nausea (or vomiting). oxyCODONE-acetaminophen (AKA PERCOCET) 5-325 MG tablet Yes Yes Sig: Take 1-2 Tabs by mouth every 4 hours as needed for Pain. H&P says 1 bid prn sildenafil (AKA VIAGRA) 50 MG tablet Yes Yes Sig: Take 50 mg by mouth daily. H&P says 100mg qd prn for ED. Take 30 min to 4 hours prior to sexual activity. Max of 100mg per 24 hours Indications: Erectile Dysfunction warfarin (AKA COUMADIN) 2.5 MG tablet Yes Yes Sig: Take 2.5 mg by mouth daily. ON warfarin (AKA COUMADIN) 5 MG tablet Yes Yes Sig: Take 5 mg by mouth daily. S-T-T-S Facility-Administered Medications: None Beta Bernabe: taken this AM. EKG:reviewed, proceed with anesthetic plan. Current Facility-Administered Medications Medication Dose Route Frequency ??? bupivacaine PF 0.5 % injection SOLN Intra-Op ??? ceFAZolin (aka ANCEF) 2 g 2 g IV Once (Non-Scheduled) ??? cefuroxime (aka ZINACEF) injection Intra-Op ??? celecoxib (aka celeBREX) capsule 200 mg 200 mg Oral SDS ??? dimenhyDRINATE (aka DRAMAMINE) tablet 50 mg 50 mg Oral ONCE PRN ??? EPINEPHrine 0.3 mg, ketorolac (aka TORADOL) 30 mg, MORphine 4 mg, ropivacaine (aka NAROPIN) 288.5 mg injection Intra-Op ??? fentaNYL (aka SUBLIMAZE) injection 50-100 mcg 50-100 mcg IV ONCE PRN ??? lactated ringers infusion 1,000 mL 1,000 mL IV Continuous ??? midazolam (aka VERSED) injection 1-2 mg 1-2 mg IV ONCE PRN ??? triamcinolone acetonide (aka KENALOG-40) 40 MG/ML injection Intra-Op Exam: Airway: Mallampati II Dentition: Dentures or Partials NO Poor dentition: no Neck ROM: Normal Lungs: Lungs clear bilaterally Heart: WNL, RRR (regular rate and rhythm), no murmurs heard NPO Solids: > 6 hours Anesthetic Problems: no, Family history of anesthesia issues: No Laboratory Data: No results found for this or any previous visit (from the past 72 hour(s)). POCT Glucose (mg/dL): (not recorded) Other Results: Past Medical History Diagnosis Date ??? HTN (hypertension) ??? Atrial fibrillation ??? Erectile dysfunction ??? Sciatica of right side Assessment and Plan: ASA: III SAB pending am INR. Discussed plan, risks, benefits, alternatives and side effects with patient/responsible constitution party. All questions answered. Sinan De La Rosa MD documented in this encounter Procedure Notes Vini Duffy MD - 01/15/2014 2:56 PM CDT [facility] Brief Operative Progress Note Surgery Date: 01/15/2014 Surgeon and Assistants: Surgeon(s) and Role: * iVni Duffy MD - Primary * Hemal Kaur OPA-C - Assisting Post-Op Diagnosis Codes: * DJD R Knee (degenerative joint disease) [715.90] Procedure: Procedure(s) (LRB): MINIMALLY INVASIVE TOTAL JOINT REPLACEMENT KNEE (Right) EBL: 50 mL Specimens: none Complications: none Findings: arthritis Vini Duffy MD --- End of Report --- Vini Duffy MD - 01/15/2014 12:00 AM CDT DATE OF SERVICE: 01/15/2014 DATE OF SURGERY: 01/15/2014 PREOPERATIVE DIAGNOSIS: Right knee osteoarthritis. POSTOPERATIVE DIAGNOSIS: Right knee osteoarthritis. PROCEDURE: Right MIS (minimally invasive surgery) total knee arthroplasty. SURGEON: Vini Duffy M.D. REPLACER: RALPH Stewart (A PA was medically indicated and necessary to allow for the safe and adequate progression of the surgery). ESTIMATED BLOOD LOSS: 50 mL. COMPLICATIONS: None. IMPLANTS USED: Florez and Nephew size 8 right Oxinium Legion primary CR femur, size 8 right Luisa II tibia, size 13 right cross-linked polyethylene high flex insert for the CR femur and a size 41 mm resurfacing patellar button. DESCRIPTION: The patient was brought to the operating suite. After adequate anesthesia induced, the right lower extremity prepped and draped in the usual sterile fashion. MIS incision made through the skin and subcutaneous tissue in a mid vastus approach. Medial peripatellar arthrotomy, everted the patella, resected 9 mm of patellar bone. Sized it at a 41. Drilled the lug holes. Placed a protective sleeve. Flexed the knee. Identified Whitesides line. Drilled the intramedullary alignment guide. 6 degree bushing placed. Anterior cut onto the anterior femoral cortex. Distal cut of 11 mm sized at an 8.Anterior, posterior, chamfer cuts completed without difficulty, 3 degrees of external rotation. Next turned attention to the tibia. Appropriate varus/valgus slope alignment settings made. Tibial plateau cut, completed without difficulty. I then turned attention to placement of a lamina manager trade. Posterior elements of the mediolateral menisci and osteophytes removed. Injected the anterior posterior capsule with ropivacaine, morphine, Toradol and then proceeded with trialing. 8 femur, 8 tibia, 11 insert. Full extension, full flexion with the 11; however, the medial side was markedly more tight than the lateral. Took a Pan elevator and did a release subperiosteal of the anterior capsule pes and thenultimately the deep and superficial bands of the medial collateral ligament on the tibial bone using a Pan elevator. This allowed me to upsize to a 13. The soft tissue sleeve was intact; with the 13 we were able to still get full extension and full flexion with no instability. The extramedullary alignment looked good. Patella tracked nicely so went ahead and marked the components, punched the components, copiously Pulsavac lavaged the bony surfaces. Dried the bony surfaces. Cemented the tibia, femur and the patella in that order. With the components cemented in place and all excess cement removed,I then turned attention to locking the 13 insert. It locked in place without difficulty. Then turnedattention to placement of an Autotransfuser drain. With the drain in place #1 Ethibond sutures interr upted [id number]-ai-[id number] were used to close the arthrotomy, #1 Vicryl interrupted sisiev-cv-[id number] to close the VMO fascia, 2-0 Vicryl in the subcu, shon in the skin. Sterile bandages applied. The patient was awakened and returned to the postanesthesia care unit in excellent condition. No apparent intraoperative complications. PLAN: Routine total knee protocol. Vini Duffy MD TJP:[email or web address] Dictated: 01/15/2014 15:01:05 Transcribed: 01/15/2014 15:20:24 Job: [id number] Doc: [id number] cc: documented in this encounter Consult Notes Quoc Moon, PharmD - 01/15/2014 5:02 PM CDTAssociated Order(s): WARFARIN PHARMACY CONSULT [facility] Clinical Pharmacy Warfarin Consult Note Assessment: Cornell English, [id number] is a 69 yr male currently receiving Warfarin for DVT prophylaxis s/p joint revision - knee replacement. Patient also noted to have A.flutter and is managed with warfarin andTikosyn Goal INR range: 2 - 3. Recommendations/Plan: Per P&T approved Pharmacy Warfarin Consult Policy, this patient will be dosed with 5 mg of warfarin today. Pharmacy will order daily INR's until patient demonstrates anticoagulation stability with this admission. Dose adjustments will be made as needed. Please Note: Daily warfarin monitoring is documented in the Warfarin Doc Flowsheet and subsequent progress notes may only be written when dosage changes are due. Thank you for this consult, Quoc Moon PharmD Data: Weight: 174 lb (78.926 kg) Patient's Outpatient Warfarin Regimen: warfarin 2.5 mg daily (M,W,F) and 5 mg ROW. New Warfarin Drug Interactions: cefazolin, celebrex, ketorolac Bridge Therapy: None Recent Labs 01/15/14 1155 INR 1.2* HGB 13.4* No data found. --- End of Report --- documented in this encounter Plan of Treatment Scheduled Referrals Name Type Priority Associated Diagnoses Order S [facility] Orthopaedic/Sports Med Referral Routine Order ed: 01/17/2014 Consult Adult/Peds Physical Therapy Referral Routine Ordered: documented as of this encounter Procedures Procedure Name Priority Date/Time Associated Comments Diagnosis HEMOGLOBIN, BLOOD Routine 01/17/2014 7:00 AM Resu lts for this CDT procedure are i n the results section. INR/PROTIME Routine 01/17/2014 7:00 AM Results f or this CDT procedure are i n the results section. HEMOGLOBIN, BLOOD Routine 01/16/2014 6:55 AM Resu lts for this CDT procedure are i n the results section. INR/PROTIME Routine 01/16/2014 6:55 AM Results f or this CDT procedure are i n the results section. XR PORTABLE KNEE RT 2 Routine 01/15/2014 4:02 PM Results for this VIEWS CDT procedure are i n the results section. MINIMALLY INVASIVE 01/15/2014 1:05 PM DJD (degenerativ e TOTAL JOINT CDT joint disease) REPLACEMENT KNEE COMPLETE BLOOD Routine 01/15/2014 11:55 Results f or this COUNT-NO DIFF AM CDT procedure are in the results section. INR/PROTIME Routine 01/15/2014 11:55 Results for this AM CDT procedure are i n the results section. EKG IP 01/15/2014 12:00 Results for this AM CDT procedure are i n the results section. documented in this encounter Results (ABNORMAL) INR/PROTIME (01/17/2014 7:00 AM CDT) athologist Signature Protime 15.4 (H) 9.3 - 11.5 [facility] INR 1.4 (H) 0.9 - 1.1 [facility] Comment: Suggested Therapeutic Ranges using INR f or stable anticoagulated patients: 2.0 - 3.0 Routine oral anticoagulant the rap for prevention and/or treatment of thrombosis. 2.5 - 3.5 With recurrent thromoembolic e vent and those with mechanical heart valves. Specimen Anatomical Collection Method Collection Time Receive d Time (Source) Location / / Volume Laterality 01/17/2014 7:00 AM 4 7:07 CDT AM CDT [facility] - 01/17/2014 7:32 AM CD T Performed at [facility], [address] [place], [place] [id number] Hemal Aguilera Ncbaldemar OPA-C LAB_1 Performing Organization Address City/[facility] Phon e Number [address] [address] (ABNORMAL) HEMOGLOBIN, BLOOD Daily x2 (01/17/2014 7:00 AM CDT) athologist Signature Hemoglobin 10.5 (L) 13.5 - 17.5 [facility] g/dl [facility] Specimen Anatomical Collection Method Collection Time Receive d Time (Source) Location / / Volume Laterality 01/17/2014 7:00 AM 4 7:07 CDT AM CDT [facility] - 01/17/2014 7:18 AM CD T Performed at [facility], [address] [place] [address] Hemal Aguilera [facility] OPA-C LAB_1 Performing Organization Address City/[facility]/ZIP [facility] Phon e Number [address] [address] (ABNORMAL) INR/PROTIME (01/16/2014 6:55 AM CDT) athologist Signature Protime 13.7 (H) 9.3 - 11.5 [facility] INR 1.3 (H) 0.9 - 1.1 [facility] Comment: Suggested Therapeutic Ranges using INR f or stable anticoagulated patients: 2.0 - 3.0 Routine oral anticoagulant [facility] for prevention and/or treatment of thrombosis. 2.5 - 3.5 With recurrent thromoembolic e vent and those with mechanical heart valves. Specimen Anatomical Collection Method Collection Time Receive d Time (Source) Location / / Volume Laterality 01/16/2014 6:55 AM 4 7:28 CDT AM CDT [facility] - 01/16/2014 7:42 AM CD T Performed at [facility], [address] [place], [place] [id number] Hemal Kaur OPA-C LAB_1 Performing Organization Address City/[facility]/ZIP Code Phon e Number [phone] [address] (ABNORMAL) HEMOGLOBIN, BLOOD Daily x2 (01/16/2014 6:55 AM CDT) athologist Signature Hemoglobin 11.2 (L) 13.5 - 17.5 [facility] g/dl [facility] Specimen Anatomical Collection Method Collection Time Receive d Time (Source) Location / / Volume Laterality 01/16/2014 6:55 AM 4 7:28 CDT AM CDT [facility] - 01/16/2014 7:47 AM CD T Performed at [facility], [address] [place] [address] Hemal Kaur OPA-C LAB_1 Performing Organization Address City/[facility]/ZIP Code Phon e Number [phone] [address] XR Knee 2 View Right Portable (01/15/2014 4:02 PM CDT) Anatomical Region Laterality Modality Lower Extremity, Knee Computed Radiograp hy Specimen (Source) Anatomical Collection Method Collection Time Re ceived Time Location / / Volume Laterality 01/15/2014 4:02 PM CDT Narrative 01/15/2014 4:06 PM CDT XR PORT KNEE 2VWS RT 01/15/2014 4:02 PM INDICATION: Postoperative alignment. COMPARISON: None. FINDINGS: A right total knee prosthesis has been placed. The prosthetic components appear well seated. No fractu re seen. As expected, there is air and a drain in the soft tissues. Procedure Note Isma Hwang MD - 01/15/2014Fo rmatting of this note might be different from the original. XR PORT KNEE 2VWS RT 01/15/2014 4:02 PM INDICATION: Postoperative alignment. COMPARISON: None. FINDINGS: A right total knee prosthesis has been placed. The prosthetic components appear well seated. No fractu re seen. As expected, there is air and a drain in the soft tissues. Hemal SERRANO-C RAD PORTABLE (ABNORMAL) INR/Protime (01/15/2014 11:55 AM CDT) athologist Signature Protime 12.7 (H) 9.3 - 11.5 [facility] INR 1.2 (H) 0.9 - 1.1 [facility] Comment: Suggested Therapeutic Ranges using INR f or stable anticoagulated patients: 2.0 - 3.0 Routine oral anticoagulant the rapy for prevention and/or treatment of thrombosis. 2.5 - 3.5 With recurrent thromoembolic e vent and those with mechanical heart valves. Specimen Anatomical Collection Method Collection Time Receive d Time (Source) Location / / Volume Laterality 01/15/2014 11:55 01/15/2014 AM CDT 12:00 PM CDT Narrative [facility] - 01/15/2014 12:17 PM C DT Performed at [facility], [address] [place] [address] Hemal SERRANO-Heather LAB_1 Performing Organization Address City/State/ZIP Code Phon e Number [address] [address] (ABNORMAL) HEMOGRAM/PLTS (01/15/2014 11:55 AM CDT) P athologist Signature WBC 6.4 4.0 - 11.0 [facility] k/[facility] RBC 4.60 4.5 - 5.9 [facility] M/[facility] Hemoglobin 13.4 (L) 13.5 - 17.5 [facility] g/dl HOSPITAL HCT 40.6 (L) 41.0 - 53.0 [facility] % HOSPITAL MCV 88.1 80 - 100 fl [facility] MCH 29.2 26 - 34 pg [facility] MCHC 33.1 32 - 36 [facility] g/dl HOSPITAL RDW 12.7 11.5 - 14.5 [facility] Platelets 303 150 - 450 [facility] MPV 7.2 6.5 - 11.0 [facility] Specimen Anatomical Collection Method Collection Time Receive d Time (Source) Location / / Volume Laterality 01/15/2014 11:55 01/15/2014 AM CDT 12:00 PM CDT Narrative [facility] - 01/15/2014 12:23 PM C DT Performed at [facility], [address] [place] [address] Hemal Kaur OPA-C LAB_1 Performing Organization Address City/State/ZIP Code Phon e Number [address] [address] EKG IP (01/15/2014 12:00 AM CDT) Specimen (Source) Anatomical Location Collection Method / Collectio n Time Received Time / Laterality Volume 01/15/2014 Narrative This result has an attachment that is no t available. EKG documented in this encounter Visit Diagnoses Diagnosis DJD (degenerative joint disease) Osteoarthrosis, unspecified whether gene ralized or localized, unspecified site Plan of Care - Irina Rodriguez RN - 01/17/2014 1:37 PM CDT [address] [place] [address] Discharge Note - Nursing Admission Date/Time: 01/15/2014 10:22 AM Attending MD: Vini Duffy MD Patient discharged: to Home. Discharge Date: 01/17/2014 Discharge Time: 1300 pm Patient accompanied by: self and friend. Transported by: Wheelchair Valuables were taken home by patient: Yes Discharge instructions given and explained to patient: Yes Discharge Patient Education Plan completed, taught, and provided to patient/caregiver at discharge: Yes ?? Discussed medication risks with patient ?? Patient understands medications usage and side effects ?? Patient understands diagnosis ?? Action Plan for management of symptoms/side effects/complications requiring medical attention established and shared with patient/caregiver Was patient discharged on Warfarin? {(Do not delete line; Warfarin documentation is required) Yes. Patient REFUSED discharge instructions. Cornell has been on exterminator helper coumadin for a-fib. Patients general condition on discharge: stable All medical devices (telemetry/IV/etc) unless otherwise ordered, have been removed and stored: Yes Report Completed by: Irina Rodriguez RN --- End of Report --- Plan of Care - Tiffany Lopez RN - 01/17/2014 5:57 AM CDT Pt reporting good relief of moderate sugical pain using one Percocet q4hrs during the epic kaleidoscope analyst. RKnee drsg & cms intact and pt is up independently to the BR moving well using wkr. VSS and possible discharge home today for pt. Plan of Care - Beckie Araya - 01/16/2014 10:22 PM CDT Assessment: Patient has had a good shift. Patient is oriented x4. Pain has been a 3-4/10 and has been controlledwith PO percocet x2 tablets every 4 hours as needed with stated relief. Patient has been ambulating with FWW and standby A1. CMS is intact to BLE. Dressing is clean and intact. Heart rate is regular. Patient brought in home dose of atenolol and Dr. Chaudhari notified by RN that patient takes 25 mg Atenolol BID at home. Order placed. Lungs are clear. Has positive bowel sounds and is passing flatus. Is tolerating a regular diet. Is voiding without difficulty. Labs: HGB (g/dl) Date Value 01/16/2014 11.2* Normal: 12-17 Vitals: BP 98/56 Pulse 69 Temp(Src) 97.6 ??F (36.4 ??C) (Oral) Resp 17 Ht 6' 1 (1.854 m) Wt 78.926 kg (174 lb) BMI 22.96 kg/m2 SpO2 100% Problem(s)/ Intervention(s): 1. Post-op pain -Being managed with PO percocet as needed. 2. Impaired mobility -Encourage ambulation as able. Encourage meals in chair. Plan: Continue to monitor and treat pain as ordered. Encourage ambulation. Tentative plan is to discharge to home when able. Beckie Jolly RN Plan of Care - Lashae Pandey, PT - 01/16/2014 3:18 PM CDT [facility] Plan of Care Note Assessment: Pt progressing well. Tolerated more WB through right LE better this pm using RW. Pt struggles with heel strike decreased knee ext during exercise and gait. Encouraged pt to walk with nursing x2 this pm, attempting to put less weight through UE's. Plan: Plan to see pt in am to cont progress toward rehab goals. --- End of Report --- Plan of Care - Fabiola Boogie RN - 01/16/2014 1:53 PM CDT Assessment: Patient has had a good shift. Patient is oriented x4. Pain has been a 4-5/10 and has been controlledwith Percocet and Toradol. Patient has been ambulating with walker. CMS is intact. Dressing is intact. Lungs are clear. Has positive bowel sounds and is passing flatus. Is tolerating a regular diet. Murray removed at 1350 after checking with urology,as they needed to insert it. Labs: HGB (g/dl) Date Value 01/16/2014 11.2* Normal: - Vitals: BP 100/50 Pulse 73 Temp(Src) 99 ??F (37.2 ??C) (Temporal Artery) Resp 16 Ht 6' 1 (1.854 m) Wt 78.926 kg (174 lb) BMI 22.96 kg/m2 SpO2 99% Problem(s)/ Intervention(s): 1. Post-op pain -Being managed with Percocet 2. Impaired mobility -Encourage ambulation as able. Encourage meals in chair. 3. Voiding -Monitor voiding since murray removed . Plan: Continue to monitor and treat pain as ordered. Encourage ambulation. Tentative plan is to discharge to home when able. Fabiola Boogie RN Plan of Care - Lashae Pandey PT - 01/16/2014 10:53 AM CDT [facility] Plan of Care Note Assessment: Eval complete. Pt motivated and willing to work with PT. Plan: Will plan to see pt this pm to cont progress toward rehab goals. --- End of Report --- Plan of Care - Tiffany Lopez RN - 01/16/2014 5:34 AM CDT Pt reporting 7-810 R Knee pain but states, Not as painful as before surgery. Percocet and IV Toradol bring tolerable relief to pt during the night. R Knee drsg & cms intact and pt stood bedside w/wkr to bear weight without problem; also used CPM at 50 degrees flexion for 45 minutes. Murray catheter with 450ml of cloudy, dk yellow UO and 50ml bloody drainage from hemovac. Pt's VSS, LSC and GI wnl. Plan of Care - Julianna Gudino RN - 01/15/2014 11:33 PM CDT Problem: Knee Replacement, Total (Adult) Intervention: Hemostasis Promotion No complaints of dizziness or light headiness. Pt taking fluids and food without nausea. PO fluids 620 ml for evening shift. Hemovac collection was around 500 ml to hang for autotransfusion. Infused 476 ml of blood started at 1900 and completed at 2100. Tolerated well without sign and symptoms of discomfort. Intervention: Bowel Function Promotion Pt has active bowel sound, in all quadrants. Intervention: Urinary Elimination Promotion Murray placed by Urology pre-op. Murray is to stay in till DC from Urology MD. Instead of 24 hrs. Intervention: Functional Berrien Promotion Pt moving self in bed and up with assist of one. Pt ambulated in room with walker. Intervention: ROM: Knee Replacement Pt having full range of motion with pain 3/10. Pt states his pain is more heavy and tight feeling with bending his knee. Plan of Care - Julianna Gudino RN - 01/15/2014 10:56 PM CDT Surgery Date: 01/15/2014 Surgeon and Assistants: Surgeon(s) and Role: * Vini Duffy MD - Primary * Hemal Kaur OPA-C - Assisting Post-Op Diagnosis Codes: * DJD R Knee (degenerative joint disease) [715.90] Procedure: Procedure(s) (LRB): MINIMALLY INVASIVE TOTAL JOINT REPLACEMENT KNEE (Right) EBL: 50 mL Specimens: none Complications: none Findings: arthritis Vini Duffy MD Pt arrived to room 169 at 1635 from PACU. Alert and orient x 4. Pt has low tolerance from pain med so [facility] not started. Percocet given for pain 4/10 with relief. Pt describes his pain more of heavy felling. Pt uses a cane normally at home. Plan of Care - Lashae Pandey PT - 01/15/2014 5:12 PM CDT [facility] Plan of Care Note Assessment: Pt to his room late. Delivered CPM and RW to room. Will plan to eval pt in am. Plan: Initial eval in am. --- End of Report --- documented in this encounter Active and Recently Administered Medications Times are shown in CDT. Scheduled Medication Order 01/15/2014 01/16/2014 01/17/2014 ATENolol (aka TENORMIN) tablet 25 mg (CANCELED) 0816 (Given - Provider: Fabiola Boogie, HERNANDEZ) 25 mg, Oral, DAILY, First dose on Tue at 0800, Until Discontinued, Indications: Hypertension, Supraventricular Cardiac Arrhythmia ATENolol (aka TENORMIN) tablet 25 mg (CANCELED) 2041 (Given - Provider: Beckie Araya) 0838 (Given - Provider: Irina gomez, RN) 25 mg, Oral, BID, First dose on Tue01/16/14 at 2028, Until Disco ntinued bisacodyl (aka DULCOLAX) suppository 10 mg (CANCELED) 0800 (Refused - Provider: Fabiola Boogie RN)1999 (Refused - Provider: Beckie Araya) 0837 (Given - Provider: Irina Rodriguez RN) 10 mg, Rectal, BID, First dose on Tue at 0800, Until Discontinued, Post-op ceFAZolin (aka ANCEF) 2 g in NaCl 0.9 % 100 mL IV denis jessica (COMPLETED) 2150 (Started - Provider: Julianna Gudino, HERNANDEZ) 0545 (Started - Provider: Tiffany Lopez, HERNANDEZ) at 200 mL/hr, IV, Q8H (NON-STND), 2 dose s, First dose on Tue01/15/14 at 2200, Last dose on Tue01/16/14 at 0600, Post-op ceFAZolin (aka ANCEF) 2 g (CANCELED) 1305 (Given - Pro vider: Lois Turner APRN, SHIPPING ASSOCIATE) 2 g, IV, ONCE (NON-SCHEDULED), Starting Tue01/15/14 at 1127, Until Discontinued, Pre-op celecoxib (aka celeBREX) capsule 200 mg (COMPLETED) 12 20 (Given - Provider: Kaity Escobar, HERNANDEZ) 200 mg, Oral, SDS, 1 dose, Starting Tue01/15/14 at 1127, Until Discontinued, Pre-op celecoxib (aka celeBREX) capsule 200 mg (CANCELED) 2158 (Given - Provider: Beckie Araya) 0838 (Given - Provider: Irina gomez RN) 200 mg, Oral, BID, First dose on Tue01/16/14 at 2200, Until Disc ontinued cholecalciferol (aka VITAMIN D3) tablet TABS 1,000 Uni ts (CANCELED) 1744 (Given - Provider: Julianna Gudino RN) 0816 (Given - Provider: Fabiola almeida RN)1629 (OR - Provider: Beckie Araya) 0838 (Given - Provider: Irina Rodriguez RN) 1,000 Units, Oral, BID WITH MEALS, First dose on Tue01/15/14 at 1700, Until Discontinued diltiazem CD coated beads (aka CARDIZEM CD) 24 hour release capsule 120 mg (CANCELED) 0849 (Given - Provider: Fabiola almeida RN) 0900 (Given - Provider: Irina Rodriguez RN) 120 mg, Oral, DAILY, First dose on Tue01/16/14 at 0800, Until Di scontinued dofetilide (aka TIKOSYN) capsule 250 mcg (CANCELED) 20 05 (Given - Provider: Julianna Gudino RN) 0816 (Given - Provider: Fabiola almeida RN)2041 (Given - Provider: Beckie Araya) 0837 (Given - Provider: Irina Rodriguez RN) 250 mcg, Oral, Q12H (NON-STND), First do se on Tue01/15/14 at 2000, Until Discontinued, Indications: Atrial Fibrillation fentaNYL (aka SUBLIMAZE) injection 50 mcg (CANCELED) 1 534 (Given - Provider: Alyx Freitas RN)1541 (Given - Provider: Alyx Freitas RN)1551 (Given - Provider: Alyx Freitas RN)1557 (Given - Provider: Alyx Freitas RN) 50 mcg, IV, PACU, Starting Tue01/15/14 at 1530, Until Discontinued, PACU (only) ketorolac (aka TORADOL) injection 15 mg (COMPLETED) 21 54 (Given - Provider: Julianna Gudino, HERNANDEZ) 0428 (Given - Provider: Tiffany Lopez, HERNANDEZ)1011 (Given - Provider: Fabiola Boogie RN)1632 (Given - Provider: Beckie Araya) 15 mg, IV, Q6H (NON-STND), 4 doses, Firs t dose on Tue01/15/14 at 2200, Last dose on Tue01/16/14 at 1600 magnesium oxide tablet 250 mg (CANCELED) 1700 (Given - Provider: Julianna Gudino RN - Comment: does not scan.) 0800 (Given - Provider: Fabiola Boogie RN)1629 (OR - Provider: Beckie Araya) 0900 (Given - Provider: Irina Rodriguez RN) 250 mg, Oral, BID WITH MEALS, First dose on Tue01/15/14 at 1700, Until Discontinued sennosides-docusate sodium (aka SENNA-S, SENNA PLUS) 8.6-50 MG tablet 1 Tab (CANCELED) 0816 (Given - Provider: Rodrigo Boogie RN)2042 (Given - Provider: Beckie Araya) 0838 (Given - Provider: Irina gomez RN) 1 Tab, Oral, BID, First dose on 01/16 at 0800, Until Discontinued, Post-op warfarin (aka COUMADIN) tablet 4 mg (COMPLETED) 1830 (Given - Provider: Katharina Santacruz, HERNANDEZ) 4 mg, Oral, ONCE, 1 dose, Tue01/16/14 at 1800 warfarin (aka COUMADIN) tablet 5 mg (COMPLETED) 1744 ( Given - Provider: Julianna Gudino, HERNANDEZ) 5 mg, Oral, WARFARIN - DAILY, 1 dose, Fi rst dose on Tue01/15/14 at 1800, Post-op Continuous Medication Order 01/15/2014 01/16/2014 01/17/2014 lactated ringers infusion 1,000 mL (CANCELED) 1222 (St arted - Provider: Kaity Escobar, HERNANDEZ) 1,000 mL, at 25 mL/hr, IV, CONTINUOUS, S tarting Tue01/15/14 at 1128, Until Discontinued, Pre-op NaCl 0.45 % infusion 1,000 mL (CANCELED) 1843 (Started - Provider: Julianna Gudino, HERNANDEZ) 1,000 mL, at 100 mL/hr, IV, CONTINUOUS, Starting Tue01/15/14 at 1623, Until Discontinued, Post-op PRN Medication Order 01/15/2014 01/16/2014 01/17/2014 HYDROcodone-acetaminophen (aka NORCO) 5-325 MG tablet TABS 1-2 Tab (CANCELED) 1827 (See Alternative - Provider: Julianna Gudino, HERNANDEZ)2004 (Given - Provider: Julianna Gudino, HERNANDEZ) 002 (See Alternative - Provider: Shira Lopez RN)0428 (See Alternative - Provider: Tiffany Lopez RN)0816 (See Alternative - Provider: Fabiola Boogie, HERNANDEZ)1216 (See Alternative - Provider: Fabiola Boogie, HERNANDEZ) 0320 (See Alternative - Provider: Shira Lopez RN)0839 (See Alternative - Provider: Irina Rodriguez, HERNANDEZ)1215 (See Alternative - Provider: Irina Rodriguez, HERNANDEZ) 1-2 Tab, Oral, PRN PER PARAMETERS, Start ing Tue01/15/14 at 1622, Until Discontinued, Pain, 1 tablet for moderate pain, 2 tablets for severe pain.?See Admin Instructions, Post-op 1630 (See Alt ernative - Provider: Beckie Araya)2311 (See Alternative - Provider: Beckie Araya) NaCl PF 0.9% injection 3 mL (CANCELED) 1 012 (Given - Provider: Fabiola Boogie RN)2328 (Given - Provider: Tiffany Lopez, HERNANDEZ) 3 mL, IV, PRN PER PARAMETERS, Starting T u01/15/14 at 1622, Until Discontinued, Line Patency, Post-op oxyCODONE-acetaminophen (aka PERCOCET) 5-325 MG tablet 1-2 Tab (CANCELED) 1827 (Given - Provider: Julianna Gudino, HERNANDEZ)2004 (See Alternative - Provider: Julianna Gudino RN) 26 (Given - Provider: Tiffany Lopez, RN)0428 (Given - Provider: Tiffany Lopez, RN)0816 (Given - Provider: Fabiola Boogie, RN)1216 (Given - Provider: Fabiola Boogie, RN)1630 (OR - Provider: Beckie Araya) 0320 (Given - Provider: Tiffany Lopez, RN)0839 (Given - Provider: Irina Rodriguez, RN)1215 (Given - Provider: Irina Rodriguez, RN) 1-2 Tab, Oral, PRN PER PARAMETERS, Start ing 01/15/14 at 1622, Until Discontinued, Pain, 1 tablet for moderate pain, 2 tablets for severe pain.?See Admin Instructions, Post-op 2311 (Given - Provider: Beckie Araya) documented in this encounter Care Teams Technical Communicator Relationship Specialty Start Date End Date Aravind Decker MD PCP - General Family Practice 01/14/14 [address] [place] [address] documented as of this encounter
--- OUTSIDE RECORDS SUMMARY | 2022-03-05 03:06 | XMS_ITS | Encounter Summary ---
:1945 Author Organization [employer] Address [address] [place] [address] Care Team Providers Name Role Phone Unavailable Primary Care Provider Unavailable Encounter Details Date Type Department Care Team Description 11/07/1998 PN Conversion Only [facility] [place] [id number] [employer] [address] [phone] [place] [address] (Wo rk) Social History Tobacco Use Types Packs/Day Years Used Date Smoking Tobacco: Never Assessed Sex Assigned at Date Recorded Not on file documented as of this encounter Progress Notes Hemal Raymundo MD - 11/07/1998 12:01 AM CDT Progress Notes signed by Hemal Raymundo MD at 12/02/98 0806 Author: Hemal Raymundo MD Service: (none) Author Type: Physician Filed: 08/19/10 1157 Note Time: 11/07/98 0001 Status: Signed Presentation Designer: Hemal Raymundo MD (Physician) IMPRESSION: Orchialgia. SUBJECTIVE: Consult from Dr. Decker in [place]. This is a 53-year-old gentleman with a several month history of bilateral inguinal discomfort radiating to the testicles. It tends to occur when he has been straining on his feet, sitting for long periods of time. It probably is some swelling he feels in the scrotum when it is particularly significant. No abdominal or back pain. It goes away when he lies down for a while and never there at night or in the morning. Denies any significant voiding dysfunction. Has been on antibiotics without any significant benefit. He also is having some potency related issues. OBJECTIVE: On physical exam, he has normal testicles bilaterally. There are no inguinal hernias. He has a moderate varicocele on the left and a small to moderate on the right. Probably is the cause of his pain, although very difficult to prove one way or another. ASSESSMENT: Orchialgia. PLAN: Had a discussion with him about varicoceles and possible surgery to fix them. I would be very careful about operating at this point given the pain is not all that severe or frequent. At this point will also have him see Dr. Nicolas in the impotence clinic and have his potency issues worked on. CC: Dr. Brianne Lundy [facility]:[id number] C: DOCUMENT: [id number] documented in this encounter Plan of Treatment Not on filedocumented as of this encounter Procedures Procedure Name Priority Date/Time Associated Comments Diagnosis URINALYSIS COMPLETE Routine 11/07/1998 1:49 PM Re sults for this HOLD CULTURE CDT procedure are i n the results section. documented in this encounter Results Urinalysis Complete Hold Culture (11/07/1998 1:49 PM CDT) [facility] Method Time Signature U Specific 1.025 1.005 - 25 HP CONVERSION Keller pH Urine 5.5 4.5 - 7.5 HP CONVERSION Protein Urine Negative Neg-Trac HP CONVERSION Glucose, Negative Neg-Trac HP CONVERSION Qualitative U Ketones Negative Negative HP CONVERSION U BILI Negative Negative HP CONVERSION Blood Urine Negative Negative HP CONVERSION Nitrite Urine Negative Negative HP CONVERSION Leukocyte Negative Negative HP CONVERSION Esterase Urine Urobilinogen Negative 0.2 - 1.0 HP CONVERSION Urine White Blood Negative 0 - 3 /HPF HP CONVERSION Cells Urine Red Blood Cells Negative 0 - 3 /HPF HP CONVERSION Urine Specimen (Source) Anatomical Collection Method Collection Time Re ceived Time Location / / Volume Laterality 11/07/1998 1:49 PM CDT Hemal Raymundo MD LAB_1 Performing Organization Address City/State/ZIP Code Phon e Number HP CONVERSION documented in this encounter Visit Diagnoses Not on filedocumented in this encounter
--- OUTSIDE RECORDS SUMMARY | 2022-03-05 03:06 | XMS_ITS | Encounter Summary ---
:1945 Author Organization [facility] Address [address] [place] [address] Care Team Providers Name Role Phone Aravind Decker MD Primary Care Provider Reason for Referral Consult/Transfer Care (Routine) - Incomplete Specialty Diagnoses / Procedures Referred By Contact Refer red To Contact Esther Luz PA-C [address] [place] [address] Referral ID Status Reason Start Date Expiration Date Visits V isits Requested Authorized [id number] Incomplete 01/17/2014 04/18/2015 1 1 Scheduling Instructions If scheduling assistance is needed, deepa vega inquire with the medical office staff upon exiting your appointment or contact the ordering clinic for recommended locations. This recommended service/s may not be co ludivina by your insurance coverage. To find out your specific benefit coverage, please c all the number on your insurance card. Consult/Transfer Care (Routine) - Closed Specialty Diagnoses / Procedures Referred By Contact Refer red To Contact Esther Luz [facility] [place] [address] [place], [place] [phone] Fax: Referral ID Status Reason Start Date Expiration Date Visits Requ ested Visits Authorized [id number] Closed 01/17/2014 1 1 Scheduling Instructions Follow up with your doctor - SCO in 2 we eks Procedure/Equipment (Routine) - Closed Specialty Diagnoses / Procedures Referred By Contact Refer red To Contact Procedures Hemal Kaur OPA-C XR Knee 2 View Right Portable [facility] [address] [place] [address] Referral ID Status Reason Start Date Expiration Date Visits Requ ested Visits Authorized [id number] Closed 01/15/2014 04/16/2015 1 1 Reason for Visit Auth/Cert - Closed Specialty Diagnoses / Procedures Referred By Contact Refer red To Contact Diagnoses RT, MINIMALLY INVASIVE TOTAL JOINT REPLACEMENT KNEE DJD Procedures MINIMALLY INVASIVE TOTAL JOINT REPLACEMENT KNEE Referral ID Status Reason Start Date Expiration Date Visits Requ ested Visits Authorized [id number] Closed 1 1 Encounter Details Date Type Department Care Team Description 01/15/2014 - Hospital Encounter [facility] Med Surg Vini Duffy, 01/17/2014 [address] [place] [address] [address] [facility] [phone] [place] [address] Social History Tobacco Use Types Packs/Day Years Used Date Smoking Tobacco: Former Cigarettes Quit : 05/02/1965 Alcohol Use Standard Drinks/Week Comments No 0 (1 standard drink = 0.6 oz pure alcoho l) QUIT 14 YEARS AGO Sex Assigned at Date Recorded Not on file documented as of this encounter Last Filed Vital Signs Vital Sign Reading Time Taken Comments Blood Pressure 104/54 01/17/2014 7:30 AM CDT Pulse 64 01/17/2014 7:30 AM CDT Temperature 36.2 ??C (97.2 ??F) 01/17/2014 7:30 AM CDT Respiratory Rate 16 01/17/2014 7:30 AM CDT Oxygen Saturation 99% 01/17/2014 7:30 AM CDT Inhaled Oxygen Concentration - - Weight 78.9 kg (174 lb) 01/11/2014 12:00 PM CDT Height 185.4 cm (6' 1) 01/11/2014 12:00 PM CDT Body Mass Index 22.96 01/11/2014 12:00 PM CDT documented in this encounter Discharge Summaries Esther Luz PA-C - 01/17/2014 11:50 AM CDT [facility] Discharge Summary Admit Date: 01/15/2014 [...] week) NAME: Esther Luz PA-C PHONE NUMBER: [phone] For information about patient referrals and other discharge orders, please see Discharge Instructions or the Other Orders tab in Chart Review. --End of Report-- documented in this encounter Discharge Instructions Discharge InstructionsIrina Rodriguez RN - 01/17/2014 10:21 AM CDT Contact Information [address] [address] Main or [phone] Same Day Surgery, M-F 7am to 5pm: [phone] Clinic Phone Numbers [facility] [phone] [facility] [phone] Emergency & Urgently Needed Care: For emergencies call 911 and/or get medical help right away. If you are a [facility] member and have medical needs after clinic hours you may call the [facility] [phone] or . Healthy Habits - Move! Aim [...] moderation - Choose healthy sources of fat: [place], peanut or canola oils, 1/4 cup nuts [...] doctor/pharmacist if it is safe to take [id number] drugs or herbs with your prescribed medicine. - Report any reactions or side effects to your doctor - Do not mix medicines in one bottle - Do not take outdated medicines Stroke Warning Signs and Symptoms: Call 12-31- immediately if you experience any of these [...] weight will also be followed by the Electric Train Driver when you go in for your treatment. [...] starting tomorrow IF INCISION DRY AND INTACT [place] present: when showering REMOVE outer gauze dressing, [...] experience and that you can definitely recommend [facility] to your family and friends. AttachmentsThe following attachments cannot be sent through Care Everywhere. TOTAL KNEE REPLACEMENT SURGERY : GENERAL INFO (GHANAIAN)documented in this encounter Medications at Time of [...] Luz PA-C - 01/17/2014 12:34 PM CDT [facility] Ortho Progress Note Date of service: 01/17/2014 [...] Luz PA-C --- End of Report --- Lj Thomas 01/17/2014 9:47 AM CDT Spiritual Care for Oriental Orthodox Patients: Spiritual support provided by Kameron. WilliamLj art - 01/16/2014 11:22 AM CDT Spiritual Care for Oriental Orthodox Patients: Spiritual support provided by Kameron. Vinnie Ventura PA-C - 01/16/2014 9:[address] [facility] Progress Note Post-operative Day: 1 Day [...] Rosa MD - 01/15/2014 4:12 PM CDT [facility] Post-Operative Anesthesia Note Admit Date/Time: 01/15/2014 10:22 [...] Rosa MD --- End of Report --- T Sinan De La Rosa MD - 01/15/2014 11:30 AM CDT [facility] Pre-Anesthesia Evaluation and Plan Surgery Date: 01/15/2014 [...] Duffy MD - 01/15/2014 2:56 PM CDT [facility] Brief Operative Progress Note Surgery Date: 01/15/2014 Surgeon and Assistants: Surgeon(s) and Role: * Vini Duffy MD - Primary * OhlHemal OPA-C - Assisting Post-Op Diagnosis Codes: * [...] total knee arthroplasty. SURGEON: Vini Duffy M.D. ELECTRICAL APPLIANCE REPAIRER: RALPH Stewart (A PA was medically indicated [...] turned attention to placement of a lamina rig site engineer. Posterior elements of the mediolateral menisci and [...] in place #1 Ethibond sutures interr upted [id number] were used to close the arthrotomy, #1 Vicryl interrupted [id number]-kr-[id number] to close the VMO fascia, 2-0 Vicryl in the subcu, hson in the skin. Sterile bandages applied. The patient was awakened and returned to the postanesthesia care unit in excellent condition. No apparent intraoperative complications. PLAN: Routine total knee protocol. Vini Duffy MD TJP:mkc Dictated: 01/15/2014 15:01:05 Transcribed: 01/15/2014 15:20:24 Job: [id number] Doc: [id number] cc: documented in this encounter Consult Notes Quoc Moon, PharmD - 01/15/2014 5:02 PM CDTAssociated Order(s): WARFARIN PHARMACY CONSULT [facility] Clinical Pharmacy Warfarin Consult Note Assessment: Cornell English, [id number] is a 69 yr male currently receiving [...] Name Type Priority Associated Diagnoses Order S [facility] Orthopaedic/Sports Med Referral Routine Order ed: [...] Protime 15.4 (H) 9.3 - 11.5 [facility]PITAL INR 1.4 (H) 0.9 - 1.1 [facility] Comment: Suggested Therapeutic Ranges using INR f or stable anticoagulated patients: 2.0 - 3.0 Routine oral anticoagulant the rap for prevention and/or treatment of thrombosis. 2.5 - 3.5 With recurrent thromoembolic e vent and those with mechanical heart valves. Specimen Anatomical Collection Method Collection Time Receive d Time (Source) Location / / Volume Laterality 01/17/2014 7:00 AM 4 7:07 CDT AM CDT [facility] - 01/17/2014 7:32 AM CD T Performed at [facility], [address] [place] [address] Hemal Aguilera [facility] OPA-C LAB_1 Performing Organization Address City/[facility]/ZIP Code Phon e Number [address] [address] (ABNORMAL) HEMOGLOBIN, BLOOD Daily x2 (01/17/2014 7:00 AM CDT) athologist Signature Hemoglobin 10.5 (L) 13.5 - 17.5 [facility] g/dl [facility] Specimen Anatomical Collection Method Collection Time Receive d Time (Source) Location / / Volume Laterality 01/17/2014 7:00 AM 4 7:07 CDT AM CDT [facility] - 01/17/2014 7:18 AM CD T Performed at [address] [address] Hemal Aguilera [facility] OPA-C LAB_1 Performing Organization Address City/[facility]/ZIP [facility] Phon e Number [address] [address] (ABNORMAL) INR/PROTIME (01/16/2014 6:55 AM CDT) athologist Signature Protime 13.7 (H) 9.3 - 11.5 [facility] INR 1.3 (H) 0.9 - 1.1 [facility] Comment: Suggested Therapeutic Ranges using INR f or stable anticoagulated patients: 2.0 - 3.0 Routine oral anticoagulant the rapy for prevention and/or treatment of thrombosis. 2.5 - 3.5 With recurrent thromoembolic e vent and those with mechanical heart valves. Specimen Anatomical Collection Method Collection Time Receive d Time (Source) Location / / Volume Laterality 01/16/2014 6:55 AM 4 7:28 CDT AM CDT [facility] - 01/16/2014 7:42 AM CD T Performed at [facility], [address] [place] [address] Hemal Aguilera Iabaldemar OPA-C LAB_1 Performing Organization Address City/[facility] Phon e Number [address] [address] (ABNORMAL) HEMOGLOBIN, BLOOD Daily x2 (01/16/2014 6:55 AM CDT) athologist Signature Hemoglobin 11.2 (L) 13.5 - 17.5 [facility] Specimen Anatomical Collection Method Collection Time Receive d Time (Source) Location / / Volume Laterality 01/16/2014 6:55 AM 4 7:28 CDT AM CDT [facility] - 01/16/2014 7:47 AM CD T Performed at [facility], [address] [place] [address] Hemal Aguilera Iabaldemar OPA-C LAB_1 Performing Organization Address [facility] Phon e Number [address] [address] XR Knee 2 View Right Portable (01/15/2014 [...] Signature Protime 12.7 (H) 9.3 - 11.5 [facility] INR 1.2 (H) 0.9 - 1.1 [facility] Comment: Suggested Therapeutic Ranges using INR f or stable anticoagulated patients: 2.0 - 3.0 Routine oral anticoagulant the rapy for prevention and/or treatment of thrombosis. 2.5 - 3.5 With recurrent thromoembolic e vent and those with mechanical heart valves. Specimen Anatomical Collection Method Collection Time Receive d Time (Source) Location / / Volume Laterality 01/15/2014 11:55 01/15/2014 AM CDT 12:00 PM CDT Narrative [facility] - 01/15/2014 12:17 PM C DT Performed at [facility], [address] [place] [address] Hemal SERRANO-Devon LAB_1 Performing Organization Address City/State/ZIP Code Phon e Number [address] [address] (ABNORMAL) HEMOGRAM/PLTS (01/15/2014 11:55 AM CDT) athologist Signature WBC 6.4 4.0 - 11.0 [facility] RBC 4.60 4.5 - 5.9 [facility] Hemoglobin 13.4 (L) 13.5 - 17.5 [facility] g/dl HOSPITAL HCT 40.6 (L) 41.0 - 53.0 [facility] MCV 88.1 80 - 100 fl [facility] MCH 29.2 26 - 34 pg [facility] MCHC 33.1 32 - 36 [facility] g/dl HOSPITAL RDW 12.7 11.5 - 14.5 [facility] Platelets 303 150 - 450 [facility] MPV 7.2 6.5 - 11.0 [facility] Specimen Anatomical Collection Method Collection Time Receive d Time (Source) Location / / Volume Laterality 01/15/2014 11:55 01/15/2014 AM CDT 12:00 PM CDT Narrative [facility] - 01/15/2014 12:23 PM C DT Performed at [facility], [address] [place], [place] [id number] Hemal Kaur OPA-C LAB_1 Performing Organization Address City/State/ZIP Code Phon e Number [address] [address] EKG IP (01/15/2014 12:00 AM CDT) Specimen (Source) Anatomical Location Collection Method / Collectio n Time Received Time / Laterality Volume 01/15/2014 Narrative This result has an attachment that is no t available. EKG documented in this encounter Visit Diagnoses Plan of Care - Irina Rodriguez RN - 01/17/2014 1:37 PM CDT [address] [place] [address] Discharge Note - Nursing Admission Date/Time: 01/15/2014 [...] REFUSED discharge instructions. Cornell has been on [facility] coumadin for a-fib. Patients general condition on discharge: stable All medical devices (telemetry/IV/etc) unless otherwise ordered, have been removed and stored: Yes Report Completed by: Irina Rodriguez RN --- End of Report --- Plan of Care - Tiffany Lopez RN - 01/17/2014 5:57 AM CDT Pt reporting good relief of moderate sugical pain using one Percocet q4hrs during the shift mechanic. RKnee drsg & cms intact and pt [...] Pandey, PT - 01/16/2014 3:18 PM CDT [facility] Plan of Care Note Assessment: Pt [...] Value 01/16/2014 11.2* Normal: 12-17 Vitals: BP 100/50 Pulse 73 Temp(Src) 99 [...] Boogie RN Plan of Care - Lashae Pandey, PT - 01/16/2014 10:53 AM CDT [facility] Plan of Care Note Assessment: Eval complete. Pt motivated and willing to work with PT. Plan: Will plan to see pt this pm to cont progress toward rehab goals. --- End of Report --- Plan of Care - Tiffany Lopez RN - 01/16/2014 5:34 AM CDT Pt reporting -12/09 R Knee pain but states, Not as [...] MD. Instead of 24 hrs. Intervention: Functional Mesa Promotion Pt moving self in bed and [...] * Vini Duffy MD - Primary * DimaslHemal OPA-C - Assisting Post-Op Diagnosis Codes: * DJD R Knee (degenerative joint disease) [715.90] Procedure: Procedure(s) (LRB): MINIMALLY INVASIVE TOTAL JOINT REPLACEMENT KNEE (Right) EBL: 50 mL Specimens: none Complications: none Findings: arthritis Vini Duffy MD Pt arrived to room 169 at 1635 from PACU. Alert and orient x 4. Pt has low tolerance from pain med so PROFESSOR OF ART not started. Percocet given for pain 4/10 with relief. Pt describes his pain more of heavy felling. Pt uses a cane normally at home. Plan of Care - Lashae Pandey PT - 01/15/2014 5:12 PM CDT [facility] Plan of Care Note Assessment: Pt to his room late. Delivered CPM and RW to room. Will plan to eval pt in am. Plan: Initial eval in am. --- End of Report --- documented in this encounter Administered Medications Inactive Administered Medications - up to 3 most recent administrations Medication Order MAR Action Action Date Dose Rate Site ATENolol (aka TENORMIN) tablet 25 Given 01/16/2014 8:16 AM CDT 2 5 mg mg 25 mg, Oral, DAILY, First dose on Tue01/16/14 at 0800, Until Discontinued, Indications: Hypertension, Supraventricular Cardiac Arrhythmia ATENolol (aka TENORMIN) tablet 25 mg Given 01/17/2014 8:38 AM CDT 25 mg 25 mg, Oral, BID, First dose on Tue01/16/14 at 2029, Until Discontinued Given 01/16/2014 8:42 PM CDT 25 mg bisacodyl (aka DULCOLAX) suppository 10 mg Given 01/17/2014 8:37 AM CDT 10 mg 10 mg, Rectal, BID, First dose on Tue01/16/14 at 0800, Until Discontinued, Discontinue order when patient has bowel movement, Post-op ceFAZolin (aka ANCEF) 2 g in NaCl 0.9 Started 01/16/2014 5:45 AM CDT 2 g 200 mL/hr % 100 mL IV piggyback 2 g, Intravenous, Administer over 30 Minutes, Q8H (NON-STND), First dose on Tue01/15/14 at 2200, For 2 doses, Start timing of antibiotics from time the Pre Op and/or Intra Op dose was given. Discontinue prophylactic antibiotics no later than 24 hours after incision closure., Post-op Started 01/15/2014 9:51 PM CDT 2 g 200 mL/hr ceFAZolin (aka ANCEF) 2 g Given 01/15/2014 1:05 PM CDT 2 g 2 g, Intravenous, ONCE (NON-SCHEDULED), Starting on Tue01/15/14 at 1127, If non-anaphylactic penicillin allergy, give 100 mg IV test dose. If no reaction, in 2-5 minutes, complete administration. Start 0 to 60 minutes prior to incision. Repeat in 4 hours if still intraop or if estimated blood loss exceeds 1500 mL, Pre-op celecoxib (aka celeBREX) capsule 200 mg Given 01/15/2014 12:20 PM CDT 200 mg 200 mg, Oral, SDS, Starting on Tue01/15/14 at 1127, Until Tue01/15/14 at 1220, For 1 dose, Do not give if patient is allergic to sulfa or has a history of renal disease Give Pre-op x 1, Pre-op celecoxib (aka celeBREX) capsule 200 mg Given 01/17/2014 8:38 AM CDT 200 mg 200 mg, Oral, BID, First dose on Tue01/16/14 at 2200, Until Discontinued Given 01/16/2014 9:58 PM CDT 200 mg cholecalciferol (aka VITAMIN D3) tablet Given 01/18/20 8:38 AM CDT 1,000 Units TABS 1,000 Units 1,000 Units, Oral, BID WITH MEALS, First dose on Tue01/15/14 at 1700, Until Discontinued Given 01/16/2014 8:16 AM CDT 1,000 Units Given 01/15/2014 5:44 PM CDT 1,000 Units diltiazem CD coated beads (aka CARDIZEM CD) Given 01/17/2014 9:00 AM CDT 120 mg 24 hour release capsule 120 mg 120 mg, Oral, DAILY, First dose on Tue01/16/14 at 0800, Until Discontinued, Capsule should be swallowed whole Given 01/16/2014 8:49 AM CDT 120 mg dofetilide (aka TIKOSYN) capsule 250 mcg Given 01/17/2014 8:37 AM CDT 250 mcg 250 mcg, Oral, Q12H (NON-STND), First dose (after last modification) on Tue01/15/14 at 2000, Until Discontinued, Please send patient's home med to pharmacy for ID/labeling. Verified and Labeled by Pharmacy, Indications: Atrial Fibrillation Given 01/16/2014 8:41 PM CDT 250 mcg Given 01/16/2014 8:16 AM CDT 250 mcg fentaNYL (aka SUBLIMAZE) injection 50 mc g Given 01/15/2014 3:57 PM CDT 50 mcg 50 mcg, Intravenous, PACU, Starting on Tue01/15/14 at 1530, Until Tue01/15/14 at 1621, Q 5 Min PRN Pain maximum total dose = 200 mcg Post op anesthesia PACU only. Nurse to discontinue order when patient discharged from PACU, PACU (only) Given 01/15/2014 3:51 PM CDT 50 mcg Given 01/15/2014 3:41 PM CDT 50 mcg HYDROcodone-acetaminophen (aka NORCO) 5-325 Given 12/31 8:05 PM CDT 1 Tablet MG tablet TABS 1-2 Tab 1-2 Tablet, Oral, PRN PER PARAMETERS, Pain, 1 tablet for moderate pain, 2 tablets for severe pain.?See Admin Instructions, Starting on Tue01/15/14 at 1622, Until Tue01/17/14 at 1547, Give 1 to 2 tablets every 4 hours per pain assessment. Oral Narcotic Analgesics to be given in following preferential sequence (unless allergic). If ineffective progress to the next preferred agent. 1. OxyCODONE-acetaminophen 2. HYDROcodone-acetaminophen 3. acetaminophen-codeine, Post-op ketorolac (aka TORADOL) injection 15 mg Given 01/16/2014 4:32 PM CDT 15 mg 15 mg, Intravenous, Q6H (NON-STND), First dose on Tue01/15/14 at 2200, Last dose on Tue01/16/14 at 1600, For 4 doses, . Given 01/16/2014 10:11 AM CDT 15 mg Given 01/16/2014 4:28 AM CDT 15 mg lactated ringers infusion 1,000 Started 01/15/2014 12:22 PM CD T 1,000 mL 25 mL/hr mL 1,000 mL, Intravenous, at 25 mL/hr, CONTINUOUS, Starting on Tue01/15/14 at 1128, To be used preop UNLESS patient has renal failure, then use NaCl 0.9% IV., Pre-op magnesium oxide tablet 250 mg Given 01/17/2014 9:00 AM CDT 250 mg 250 mg, Oral, BID WITH MEALS, First dose on Tue01/15/14 at 1700 Given 01/16/2014 8:00 AM CDT 250 mg Given 01/15/2014 5:00 PM CDT 250 mg NaCl 0.45 % infusion 1,000 mL Started 01/15/2014 6:43 PM CDT 1,000 mL 100 mL/hr 1,000 mL, Intravenous, at 100 mL/hr, CONTINUOUS, Starting on Tue01/15/14 at 1623, May discontinue when patient tolerating PO intake, Post-op NaCl PF 0.9% injection 3 mL Given 01/16/2014 11:28 PM CDT 3 mL 3 mL, Intravenous, PRN PER PARAMETERS, Line Patency, Starting on Tue01/15/14 at 1622, Post-op Given 01/16/2014 10:12 AM CDT 3 mL oxyCODONE-acetaminophen (aka PERCOCET) Given 01/17/2014 12:15 PM CDT 1 Tablet 5-325 MG tablet 1-2 Tab 1-2 Tablet, Oral, PRN PER PARAMETERS, Pain, 1 tablet for moderate pain, 2 tablets for severe pain.?See Admin Instructions, Starting on Tue01/15/14 at 1622, Until Tue01/17/14 at 1547, Give 1 to 2 tablets every 4 hours per pain assessment. Oral Narcotic Analgesics to be given in following preferential sequence (unless allergic). If ineffective progress to the next preferred agent. 1. OxyCODONE-acetaminophen 2. HYDROcodone-acetaminophen 3. acetaminophen-codeine, Post-op Given 01/17/2014 8:39 AM CDT 2 Tablets Given 01/17/2014 3:20 AM CDT 1 Tablet sennosides-docusate sodium (aka Given 01/17/2014 8:38 AM CDT 1 T ablet SENNA-S,SENNA PLUS) 8.6-50 MG tablet 1 T ab 1 Tablet, Oral, BID, First dose on Tue01/16/14 at 0800, Until Discontinued, as laxative/stimulant, stool-softening agent, Post-op Given 01/16/2014 8:42 PM CDT 1 Tablet Given 01/16/2014 8:16 AM CDT 1 Tablet warfarin (aka COUMADIN) tablet 4 mg Given 01/16/2014 6:30 PM CDT 4 mg 4 mg, Oral, ONCE, On Tue01/16/14 at 1800, For 1 dose, Hazardous waste disposal required Vitamin K antagonizes the effects of warfarin. Maintain consistent intake of vitamin K in the diet. warfarin (aka COUMADIN) tablet 5 mg Given 01/15/2014 5:44 PM CDT 5 mg 5 mg, Oral, WARFARIN - DAILY, First dose on Tue01/15/14 at 1800, Last dose on Tue01/15/14 at 1800, For 1 dose, Give at 1800 on day of surgery, Post-op documented in this encounter Active and Recently Administered Medications Times are shown in CDT. Scheduled Medication Order 01/15/2014 01/16/2014 01/17/2014 ATENolol (aka TENORMIN) tablet 25 mg (CANCELED) 815 (Given - Provider: Fabiola Boogie, HERNANDEZ) 25 mg, Oral, DAILY, First dose on Tue at 0800, Until Discontinued, Indications: Hypertension, Supraventricular Cardiac Arrhythmia ATENolol (aka TENORMIN) tablet 25 mg (CANCELED) 2041 (Given - Provider: Beckie Araya) 08 (Given - Provider: Irina gomez RN) 25 mg, Oral, BID, First dose on Tue01/16/14 at 2028, Until Disco ntinued bisacodyl (aka DULCOLAX) suppository 10 mg (CANCELED) 799 (Refused - Provider: Fabiola Boogie RN)1999 (Refused - Provider: Beckie Araya) 08 (Given - Provider: Irina Rodriguez RN) 10 mg, Rectal, BID, First dose on Tue at 0800, Until Discontinued, Post-op ceFAZolin (aka ANCEF) 2 g in NaCl 0.9 % 100 mL IV denis yback (COMPLETED) 2150 (Started - Provider: Julianna Gudino, HERNANDEZ) 0545 (Started - Provider: Tiffany Lopez, HERNANDEZ) at 200 mL/hr, IV, Q8H (NON-STND), 2 dose s, First dose on Tue01/15/14 at 2200, Last dose on Tue01/16/14 at 0600, Post-op ceFAZolin (aka ANCEF) 2 g (CANCELED) 1305 (Given - Pro vider: Lois Turner APRN, COUNTER STACKER) 2 g, IV, ONCE (NON-SCHEDULED), Starting Tue01/15/14 at 1127, Until Discontinued, Pre-op celecoxib (aka celeBREX) capsule 200 mg (COMPLETED) 12 (Given - Provider: Kaity Escobar, HERNANDEZ) 200 mg, Oral, SDS, 1 dose, Starting Tue01/15/14 at 1127, Until Discontinued, Pre-op celecoxib (aka celeBREX) capsule 200 mg (CANCELED) 2157 (Given - Provider: Beckie Araya) 0838 (Given - Provider: Irina gomez RN) 200 mg, Oral, BID, First dose on Tue01/16/14 at 2200, Until Disc ontinued cholecalciferol (aka VITAMIN D3) tablet TABS 1,000 Uni ts (CANCELED) 1744 (Given - Provider: Julianna Gudino, HERNANDEZ) 0816 (Given - Provider: Fabiola almeida, HERNANDEZ)1629 (OR - Provider: Beckie Araya) 0838 (Given [...] (COMPLETED) 21 54 (Given - Provider: Julianna Gudino RN) 0428 (Given - Provider: Tiffany Lopez RN)1011 (Given - Provider: Fabiola Boogie RN)1632 (Given [...] warfarin (aka COUMADIN) tablet 4 mg (COMPLETED) 183 (Given - Provider: Katharina Santacruz RN) 4 mg, Oral, ONCE, 1 dose, Tue01/16/14 at 1800 warfarin (aka COUMADIN) tablet 5 mg (COMPLETED) 174 ( Given - Provider: Julianna Gudino, HERNANDEZ) [...] mL (CANCELED) 1843 (Started - Provider: Julianna GudinoHERNANDEZ) 1,000 mL, at 100 mL/hr, IV, CONTINUOUS, Starting Tue01/15/14 at 1623, Until Discontinued, Post-op PRN Medication Order 01/15/2014 01/16/2014 01/17/2014 HYDROcodone-acetaminophen (aka NORCO) 5-325 MG tablet TABS 1-2 Tab (CANCELED) 1827 (See Alternative - Provider: Julianna Gudino RN)2004 (Given - Provider: Julianna Gudino RN) 26 (See Alternative - Provider: Shira Lopez RN)042 (See Alternative - Provider: Tiffany Lopez RN)0816 (See Alternative - Provider: Fabiola Boogie, HERNANDEZ)1216 (See Alternative - Provider: Fabiola Boogie RN) 0320 (See Alternative - Provider: Shira Lopez RN)0839 (See Alternative - Provider: Irina Rodriguez, HERNANDEZ)1215 (See Alternative - Provider: Irina Rodriguez RN) 1-2 Tab, Oral, PRN PER PARAMETERS, Start ing Tue01/15/14 at 1622, Until Discontinued, Pain, 1 tablet for moderate pain, 2 tablets for severe pain.?See Admin Instructions, Post-op 1630 (See Alt ernative - Provider: Beckie Araya)2311 (See Alternative - Provider: Beckie Araya) NaCl PF 0.9% injection 3 mL (CANCELED) 1 012 (Given - Provider: Fabiola Boogie RN)2328 (Given - Provider: Tiffany Lopze RN) 3 mL, IV, PRN PER PARAMETERS, Starting T ue 01/15/14 at 1622, Until Discontinued, Line Patency, Post-op oxyCODONE-acetaminophen (aka PERCOCET) 5-325 MG tablet 1-2 Tab (CANCELED) 1827 (Given - Provider: Julianna Gudino RN)2004 (See Alternative - Provider: Julianna Gudino RN) 26 (Given - Provider: Tiffany Lopez RN)0428 (Given - Provider: Tiffany Lopez RN)0816 (Given - Provider: Fabiola L Boogie, RN)1216 (Given - Provider: Fabiola Boogie RN)1630 (OR - Provider: Beckie Araya) 0320 (Given - Provider: Tiffany Lopez, HERNANDEZ)0839 (Given - Provider: Irina Rodriguez, RN)1215 (Given - Provider: Irina Rodriguez, RN) 1-2 Tab, Oral, PRN PER PARAMETERS, Start ing 01/15/14 at 1622, Until Discontinued, Pain, 1 tablet for moderate pain, 2 tablets for severe pain.?See Admin Instructions, Post-op 7522 (Given - Provider: Beckie Araya) documented in this encounter Care Teams Special Education Aide Relationship Specialty Start Date End Date Aravind Decker MD PCP - General Family Practice 01/14/14 [address] [place] [address] documented as of this encounter
--- OUTSIDE RECORDS SUMMARY | 2022-03-05 03:06 | XMS_ITS | Encounter Summary ---
:1945 Author Organization [facility] Address [address] [place] [address] Care Team Providers Name Role Phone Aravind Decker MD Primary Care Provider Encounter Details Date Type Department Care Team Description 01/15/2014 Consent for LV Surg IP Svc [facility] Procedure/Treatme [address] [facility], [place] [address] Provider [phone] Social History Tobacco Use Types Packs/Day Years [...] on filedocumented in this encounter Care Teams Collision Mechanic Relationship Specialty Start Date End Date Aravind Decker MD PCP - General Family Practice 01/14/[address] [place] [place] [address] documented as of this encounter
--- OUTSIDE RECORDS SUMMARY | 2022-03-05 03:06 | XMS_ITS | Encounter Summary ---
:1945 Author Organization [facility] Address [address] [place] [address] Care Team Providers Name Role Phone Aravind Decker MD Primary Care Provider Reason for Visit Reason Comments FEVER SOB (SHORTNESS OF BREATH) Encounter Details Date Type Department Care Team Description 04/14/2021 Nurse Triage Careline Unassigned, FEVER; SOB (SHORTNESS [address] Provider OF BREATH) [place], [place] [address] [place] [address] [place] [address] Social History Tobacco Use Types Packs/Day Years Used Date Smoking Tobacco: Former Cigarettes Quit : 05/02/1965 Alcohol Use Standard Drinks/Week Comments No 0 (1 standard drink = 0.6 oz pure alcoho l) QUIT 14 YEARS AGO Sex Assigned at Date Recorded Not on file documented as of this encounter Nursing Notes Shea Spivey RN - 04/14/2021 10:43 PM CST 10:43 PM Pt is transferred from the CareLine Core Mounter on speaker phone with his friend Lynette. Pt gives permission to discuss his sx's and share his chart with Lynette Verified patient identity: Yes Situation/Background (brief explanation of current symptoms/situation): States pt spent 20 days at [facility] for acending aortic anuresym, and states he had complications and had a collapsed lung. Was sent home today - is staying with Lynette. States pt spiked a temp tonight and is a little short of breath (which isn't unusual or new since his surgery) and is having pain in right lower lung again (again which is not new -has had had off and on since the surgery), but main concern is he spiked a temp. States at 8:30pm his temp 99.7 (orally) - took tylenol at 9pm and at 9:30pm his temp was 100.1 Lynette states she called the nurse at [facility] and was told give it a little more time, but maybe he may need to go to the ER - States at 10pm his temp is 99.7 and she is wondering if he should go to the ER. States she was told she could call the nurse at [facility] again, but also states she was told if she was that concerned then they should go to the ER. Reason for Disposition ??? Patient sounds very sick or weak to the triager Advised caller to check pt's DC paperwork to see if any phone numbers to call or instructions regarding reasons to return to the ED, and/or call the [facility] nurse again as she states she was told, otherwise if not able to reach anyone than this global technical writer would recommend the ED due to pt's recent Hx. Protocols used: POST-HOSPITALIZATION FOLLOW-UP [id number] Pt's friend and pt state understanding and agree with plan and deny further questions at this time -will finish looking at DC paperwork and if no other numbers/guideance found, then Lynette will call back to speak with [facility] nurse or bring pt to the ED. Shea Ann RN 04/14/2021, 10:53 PM RIDGE MAKER Lashae Morfin - 04/14/2021 10:37 PM CST Verified patient identity using three identifiers: Yes Caller's relationship to patient: Other Do you get your primary care at a HP or PN clinic: No/Other [facility] HP Select Member: No Symptoms Describe the reason for call/symptoms (include location and duration if applicable): Pt recently hospitalized for an aortic aneurism, bypass and a collapsed lung - Pt experiencing temp of 99.7 (oral), SOB Plan:Caller transferred directly to CareLine nurse. RIDGE MAKER documented in this encounter Plan of Treatment Not on filedocumented as of this encounter Visit Diagnoses Not on filedocumented in this encounter Care Teams Film Librarian Relationship Specialty Start Date End Date Aravind Decker MD PCP - General Family Practice 01/14/14 [address] [place] [address] documented as of this encounter
--- OUTSIDE RECORDS SUMMARY | 2022-03-05 03:06 | XMS_ITS | Encounter Summary ---
:1945 Author Organization [facility] Address [address] [place] [address] Care Team Providers Name Role Phone Aravind Decker MD Primary Care Provider Reason for Visit Reason Onset Date Comments FOLLOW-UP,[facility] 01/19/2014 Encounter Details Date Type Department Care Team Description 01/19/2014 Telephone Med Surg Mira Pacheco, RN FOLLOW-UP,[address] [address] [place] [address] [phone] Social History Tobacco Use Types Packs/Day Years [...] on filedocumented in this encounter Care Teams Assistant Chief Engineer Relationship Specialty Start Date End Date Aravind Decker MD PCP - General Family Practice 01/14/[address] [place] [address] documented as of this encounter
--- OUTSIDE RECORDS SUMMARY | 2022-03-05 03:06 | XMS_ITS | Encounter Summary ---
:1945 Author Organization [facility] Address [address] [place] [address] Care Team Providers Name Role Phone Unavailable Primary Care Provider Unavailable Encounter Details Date Type Department Care Team Description 12/30/2003 PN Conversion Only HUMAN RELATIONS PROFESSOR [address] [address] Social History Tobacco Use Types Packs/Day Years Used Date Smoking Tobacco: Never Assessed Sex Assigned at Date Recorded Not on file documented as of this encounter Plan of Treatment Not on filedocumented as of this encounter Visit Diagnoses Not on filedocumented in this encounter
== END 2022-03-05 03:23 | disposition home or self-care (01) ==
LOC: ED 03:03
PROVIDERS: Emergency Provider Family Medicine; PCP Family Medicine
DX: L02.211 Cutaneous abscess of abdominal wall (principal)
CPT/HCPCS: 99282; 99283; 99284

== ENCOUNTER 2022-03-13 17:09 | Emergency (ER) | payer MEDICARE, OTHER, SELFPAY ==
[2022-03-13] VITALS (13 sets, daily range): BP systolic 116–145; BP diastolic 67–129; PULSE 64–78; RESP 16; TEMP 36.1; O2SAT 97–100; BMI 23.1
[2022-03-13 17:47] LABS: Lactate* 0.5 mmol/L (0.5-1.9)
[2022-03-13 17:48] LABS: Basophils Absolute Auto 0.01 K/uL (0.00-0.30); Basophils Percent Auto 0.2 % (0.0-3.0); Eosinophils Absolute Auto 0.12 K/uL (0.00-0.50); Eosinophils Percent Auto 2.4 % (0.0-7.0); Hematocrit 43.3 % (37.0-53.0); Hemoglobin* 14.1 gm/dL (13.5-17.5); Lymphocytes Absolute Auto 1.52 K/uL (0.90-2.90); Lymphocytes Percent Auto 30.5 % (20-44); Mean Corpuscular HGB Conc 33 gm/dL (32-36); Mean Corpuscular Hemoglobin 31 pg (26-34); Mean Corpuscular Volume 94 fL (80-100); Monocytes Percent Auto 6.8 % (0.0-11.0); Neutrophils Absolute Auto 2.99 K/uL (1.7-7.0); Neutrophils Percent Auto 60.1 % (42.0-72.0); Platelet Count* 187 K/uL (140-440); RDW Coefficient of Variation % 12.9 % (11.5-15.5); Red Blood Count 4.63 m/uL (4.30-5.90); White Blood Count* 4.98 K/uL (4.50-11.00)
[2022-03-13 17:49] LABS: Appearance Urine Clear (Clear); Bilirubin Urine Negative (Negative); Blood Urine Negative (Negative); Color Urine Yellow (Yellow); Glucose Urine Negative (Negative); Ketones Urine Negative (Negative); Leukocyte Esterase Urine Negative (Negative); Nitrite Urine Negative (Negative); Protein Urine Negative (Negative); Urobilinogen Urine 0.2 (0.2-1.0)
--- OUTSIDE RECORDS SUMMARY | 2022-03-13 17:49 | XMS_ITS | Clinical Summary ---
:1945 Author Organization [facility] Address [address] [place] [address] Care Team Providers Name Role Phone Elsewhere, Pcp Primary Care Provider Unavailable Source Comments Patient records contain information from all sites at [facility]. For routine questions regarding patient records, call [phone] during business hours, M-F 8:00 AM - 5:00 PM Central Time. Record requests for emergency care only can be directed to [phone] at any time.[facility] Allergies Active Allergy Reactions Severity Noted Date [...] or relatives? How often do you attend mosque or Patient refused 2021 hoahaoism services? Do you belong to any clubs or No 08/31/2021 organizations such as mosque groups, unions, fraternal or athletic groups, or [...] months, how many places have you lived? [phone] 08/31/2021 In the last 12 months, was there a time when you did No 08/31/2021 not [address] to sleep or slept in a intermediate (including now)? Education Answer Date Recorded What [...] CDT Respiratory Rate 18 04/01/2016 11:15 PM VIDEO CONFERENCE SPECIALIST Oxygen Saturation 99% 08/31/2021 7:42 AM [...] ss Type Group MEDICARE MEDICARE A AND [id number] 2010-[place] [address] Medicare B t [place] [id number] MEDICA MEDICA CHOICE [id number] 2021-Presen [address] [address] Medicaid HMO [place] [address] [place] [id number] Care Teams Greenhouse Manager Relationship Specialty Start Date End Date Elsewhere, Pcp PCP - General Internal Medicine 08/31/21
--- OUTSIDE RECORDS SUMMARY | 2022-03-13 17:49 | XMS_ITS | Encounter Summary ---
:[address] [facility] Address [address] [place] [address] Care Team Providers Name Role Phone Elsewhere, Pcp Primary Care Provider Unavailable Encounter Details Date Type Department Care Team Description 08/31/2021 Hospital Encounter Department of [facility], Amy gill [facility] Laboratory Medicine [facility] in [place], [address] [place], [place] [address] [address] [place], [place] [phone] (Work) [phone] Social History Tobacco Use Types Packs/Day Years [...] or relatives? How often do you attend denominational or Patient refused 2021 anabaptism services? Do you belong to any clubs or No 08/31/2021 organizations such as denominational groups, unions, fraternal or athletic groups, or [...] months, how many places have you lived? [phone] 08/31/2021 In the last 12 months, was there a time when you did No 08/31/20[address] to sleep or slept in a long term (including now)? Education Answer Date Recorded What [...] supplements. ??If the result does not [facility] clinical observations, repeat testing after patient refrains fr om the use of supplements for at least 12 hours. Specimen Anatomical Collection Method Collection Time Receive d Time (Source) Location / / Volume Laterality Blood (Blood, 08/31/2021 9:05 AM 09/01/19 9:15 Venous) CDT AM CDT Amy Linares M.D. LAB BLOOD ADD-ON Performing Organization Address City/State/ZIP Code Phon e Number [facility]- [address] [place] [address] [place] [address] System in [place] [address] documented in this encounter Visit Diagnoses Diagnosis Restless Leg Syndrome documented in this encounter Care Teams Sole Edge Inker Machine Relationship Specialty Start Date End Date Elsewhere, Pcp PCP - General Internal Medicine 08/31/21 documented as of this encounter
--- OUTSIDE RECORDS SUMMARY | 2022-03-13 17:49 | XMS_ITS | Encounter Summary ---
:[address] [facility] Address [address] [place] [address] Care Team Providers Name Role Phone Elsewhere, Pcp Primary Care Provider Unavailable Reason for Visit Reason Comments Restless Legs Going on about 10 years off & on-more constant recently-can't sleep Appointment Request (Routine) - Closed Specialty Diagnoses / Procedures Referred By Contact Refer red To Contact Community Internal Medicine Referral ID Status Reason Start Date Expiration Date Visits Requ ested Visits Authorized [id number] Closed 08/18/2021 08/18/2022 1 1 Encounter Details Date Type Department Care Team Description 08/31/2021 Office Visit Department of Internal Amy Linares, Restless Leg Syndrome (Primary Dx); Medicine in [place] [facility] [address] [facility] [place] [phone] Social History Tobacco Use Types Packs/Day Years [...] or relatives? How often do you attend mu-ism or Patient refused 2021 scientologist services? Do you belong to any clubs or No 08/31/2021 organizations such as mu-ism groups, unions, fraternal or athletic groups, or [...] months, how many places have you lived? [phone] 08/31/2021 In the last 12 months, was there a time when you did No 08/31/20[address] to sleep or slept in a custodial (including now)? Education Answer Date Recorded What [...] a patient of Dr. Fitch at the [facility] and is seen today to discuss his [...] for congestive heart failure. He sees a concrete vault maker regularly and also sees his primary care [...] Organization Address City/State/ZIP Code Phon e Number [facility]- [address] [place] [address] [place] [address] System in [place] [address] documented in this encounter Visit Diagnoses Diagnosis Restless Leg Syndrome - Primary Edema documented in this encounter Care Teams Medical Records Clerk Relationship Specialty Start Date End Date Elsewhere, Pcp PCP - General Internal Medicine 08/31/21 documented as of this encounter
--- OUTSIDE RECORDS SUMMARY | 2022-03-13 17:50 | XMS_ITS | Encounter Summary ---
:1945 Author Organization [employer] Address [address] [place] [address] Care Team Providers Name Role Phone Aravind Decker MD Primary Care Provider Reason for Visit Procedure/Equipment (Routine) - Incomplete Specialty Diagnoses / Procedures Referred By Contact Refer red To Contact Procedures Papito Jewell MD XR Chest 2 Views [address] [place] [address] Referral ID Status Reason Start Date Expiration Date Visits V isits Requested Authorized [id number] Incomplete 04/15/2021 07/15/2022 1 1 Encounter Details Date Type Department Care Team Description 04/15/2021 Ancillary Procedure [facility] aging [address] [place] [id number] Social History Tobacco Use Types Packs/Day Years [...] 04/15/2021 6:04 AM Resul ts for this FINANCIAL SALES ASSOCIATE procedure are i n the results section. documented in this encounter Results XR Chest 2 Views (04/15/2021 6:04 AM FINANCIAL SALES ASSOCIATE) Anatomical Region Laterality Modality Chest, Lung Computed Radiography Specimen (Source) Anatomical Collection Method Collection Time Re ceived Time Location / / Volume Laterality 04/15/2021 6:04 AM FINANCIAL SALES ASSOCIATE Narrative 04/15/2021 6:16 AM FINANCIAL SALES ASSOCIATE EXAM: XR CHEST 2 VIEWS LOCATION: [facility] DATE/TIME: 04/15/2021 6:04 AM INDICATION: Right [...] original. EXAM: XR CHEST 2 VIEWS LOCATION: [facility] DATE/TIME: 04/15/2021 6:04 AM INDICATION: Right [...] on filedocumented in this encounter Care Teams Naturalist Relationship Specialty Start Date End Date Aravind Decker MD PCP - General Family Practice 01/14/14 [address] [place] [address] documented as of this encounter
--- OUTSIDE RECORDS SUMMARY | 2022-03-13 17:50 | XMS_ITS | Encounter Summary ---
:1945 Author Organization [facility] Address [address] [place] [address] Care Team Providers Name Role Phone Unavailable Primary Care Provider Unavailable Encounter Details Date Type Department Care Team Description 11/28/2000 Hospital Encounter HX [facility] [place] viv[place] Social History Tobacco Use Types Packs/Day [...] or relatives? How often do you attend restorationism or Patient refused 2021 catholic services? Do you belong to any clubs or No 08/31/2021 organizations such as restorationism groups, unions, fraternal or athletic groups, or [...] months, how many places have you lived? [phone] 08/31/2021 In the last 12 months, was there a time when you did No 08/31/2021 not [address] to sleep or slept in a [facility] (including now)? Sex Assigned at Date Recorded Not on file documented as of this encounter Plan of Treatment Not on filedocumented as of this encounter Visit Diagnoses Not on filedocumented in this encounter
--- OUTSIDE RECORDS SUMMARY | 2022-03-13 17:50 | XMS_ITS | Encounter Summary ---
:1945 Author Organization [employer] Address [address] [place] [address] Care Team Providers Name Role Phone Aravind Decker MD Primary Care Provider Reason for Referral Procedure/Equipment (Routine) - Closed Specialty Diagnoses / Procedures Referred By Contact Refer red To Contact Papito Araujo MD CT Angio Chest Abd Pel W/WO [address] [facility] [place] [address] Referral ID Status Reason Start Date Expiration Date Visits Requ ested Visits Authorized [id number] Closed 04/15/2021 07/15/2022 1 1 [facility] Procedure/Equipment (Routine) - Closed Specialty Diagnoses / Procedures Referred By Contact Refer red To Contact Papito Araujo MD POC US BASIC CARDIAC [address] [place] [address] Referral ID Status Reason Start Date Expiration Date Visits Requ ested Visits Authorized [id number] Closed 04/15/2021 07/15/2022 1 1 [facility] Procedure/Equipment (Routine) - Incomplete Specialty Diagnoses / Procedures Referred By Contact Refer red To Contact Procedures Papito Jewell MD XR Chest 2 Views [address] [place] [address] Referral ID Status Reason Start Date Expiration Date Visits V isits Requested Authorized [id number] Incomplete 04/15/2021 07/15/2022 1 1 [facility] Reason for Visit Reason Comments Chest Pain Encounter Details Date Type Department Care Team Description 04/15/2021 Emergency [facility] Papito Jewell Righ t-sided chest pain (Primary Dx); Emergency Department Elevated troponin; [address] SOB (shortness of breath) [place] [address] [place], [place] [phone] (Wo rk) Social History Tobacco Use Types [...] Comments Blood Pressure 108/51 04/15/2021 7:05 AM [facility] Pulse 90 04/15/2021 7:05 AM [facility] Temperature 37 ??C (98.6 ??F) 04/15/2021 5:05 AM [facility] Respiratory Rate 24 04/15/2021 7:05 AM [facility] Oxygen Saturation 95% 04/15/2021 7:05 AM [facility] Inhaled Oxygen Concentration - - Weight - - Height - - Body Mass Index - - documented in this encounter Discharge Instructions Discharge InstructionsTiffany Rodriguez MD - 04/15/2021 11:06 AM [facility] I would like you to follow-up with your Cardiothoracic surgeon in 2 weeks time. Monitor for fevers of 100.4 or greater at home. If you continue to have fevers, productive sputum and or worsening chest pain or shortness of breath return to the ED immediately. We will call you if your blood cultures grow any bacteria. [facility] documented in this encounter Medications at Time [...] AM CSTAssociated Order(s): POC US BASIC CARDIAC [facility] Point of Care Ultrasound Interpretation POC US BASIC CARDIAC Date/Time: 04/15/2021 6:59 AM Performed by: Papito Jewell MD Authorized by: Papito Jewell MD Point of Care Ultrasound: Basic Cardiac Indications: Chest Pain Window: Adequate for full imaging and interpretation Findings/ Impression (Within the context of limited rjlkt-ja-exix ultrasound): Good Global Function and No Pericardial Effusion [facility] documented in this encounter ED Notes Karie Zavala RN - 04/15/2021 11:20 AM CST [facility] ED Nursing Discharge Note Patient discharged: to [...] placed in this encounter. ---End of Report--- [facility] Tiffany Rodriguez MD - 04/15/2021 5:31 AM CST [facility] Emergency Medicine Visit Note Chief Complaint: Chest Pain HPI Cornell English is a 76 y.o. old male with history of atrial fibrillation on warfarin, HTN, and recent prolonged hospitalization at [facility] for ascending aortic aneurysm repair on [...] based on recent x- ray imaging from [facility]. [ESTEBAN] 0624 INR(!): 1.5 Subtherapeutic, but [...] Received Lovenox per 30 min ago. [JOSE] 8196 CT Aorta IMPRESSION: 1. ??Hydropneumothorax on the [...] management recommended 2. Dilated ascending aorta at [id number] with an elevated area:height index of 10.4 cm2/m. Please consider surgical referral. 3. 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 3. Normal appearing pericardium. 4. Please see separate radiology report. [JOSE] 1051 Dr. Carter- We discussed findigns, troponin elevation, EKG and Chest CT findings. Not concerned that troponin is related to PR. SOB, CT in. Loculated effusion. Have him follow up in 2 weeks as oppose to 4 weeks. [JOSE] 1052 CT Angio Chest Abd Pel W/WO IV Cont Dissection [JOSE] ED Course User Index [JOSE] Tiffany Rodriguez MD [ESTEBAN] Papito Jewell MD Clinical Impressions as of 04/15/21 1559 Right-sided chest pain Elevated troponin SOB (shortness of breath) - resolved [facility] OFF[facility]IAL Gloria Boogie RN - 04/15/2021 5:00 AM CST [facility] Emergency Department Triage Note Arrived to ED by: car. Transported to ED From: home. Accompanied by: friend. Chief Complaint: chest pain Onset of Symptoms and Events Surrounding Chief Complaint: pt admitted to room via w/c--pt s/p AAA surgery 03/24--at [facility]--pt was discharge Tuesday--pt developed increasing chest pain with left lungpain since 1699--incisions have healed well--no redness-no drainage--monitors on--EKG done upon arrival to room Gloria Boogie RN 04/15/2021, 6:22 AM [facility] documented in this encounter Plan of Treatment Not on filedocumented as of this encounter Procedures Procedure Name Priority Date/Time Associated Comments Diagnosis BLOOD CULTURE STAT 04/15/2021 11:13 Results fo r this AM [facility] procedure are i n the results section. BLOOD CULTURE STAT 04/15/2021 11:13 Results fo r this AM [facility] procedure are i n the results section. BLOOD CULTURE STAT 04/15/2021 10:32 Results fo r this AM [facility] procedure are i n the results section. BLOOD CULTURE STAT 04/15/2021 10:32 Results fo r this AM [facility] procedure are i n the results section. TROPONIN I Specified Time 04/15/2021 8:53 Results fo r this AM [facility] procedure are i n the results section. CT ANGIO CHEST ABD STAT 04/15/2021 7:16 Result s for this PEL W/WO IV CONT AM [facility] procedure a re in DISSECTION the results section. POC US BASIC CARDIAC Routine 04/15/2021 6:42 Resu lts for this AM [facility] procedure are i n the results section. XR CHEST 2 VIEWS STAT 04/15/2021 6:04 Results for this AM [facility] procedure are i n the results section. PROCALCITONIN Routine 04/15/2021 5:36 Results for this AM [facility] procedure are i n the results section. BASIC METABOLIC PANEL STAT 04/15/2021 5:36 Res ults for this AM [facility] procedure are i n the results section. TROPONIN I STAT 04/15/2021 5:36 Results for this AM [facility] procedure are i n the results section. COMPLETE BLOOD STAT 04/15/2021 5:36 Results fo r this COUNT-NO DIFF AM [facility] procedure are in the results section. INR/PROTIME STAT 04/15/2021 5:36 Results for this AM [facility] procedure are i n the results section. ECG-ROUTINE 12 LEAD; STAT 04/15/2021 5:01 Resu lts for this INTRPT & REPRT AM [facility] procedure are in the results section. documented in this encounter Results Blood Culture (04/15/2021 11:13 AM [facility]) [facility] Method Time Signature Blood Culture No Growth [facility] 04/20/2021 [place] at 5 Days ETEST 8:01 PM [facility] METHOD Specimen Anatomical Collection Method / Collection Time Recei bob Time (Source) Location / Volume Laterality Blood Venipuncture / 04/15/2021 11:13 (Venipuncture or Unknown AM [facility] 11:36 AM CS T Line Start) Tiffany Rodriguez MD LAB_1 Performing Organization Address City/State/[place] [address] Blood Culture (04/15/2021 10:32 AM [facility]) Patholo gist Method Time Signature Blood Culture No Growth [facility] 04/20/2021 [place] at 5 Days ETEST 1:00 PM [facility] METHOD Specimen Anatomical Collection Method / Collection Time Recei bob Time (Source) Location / Volume Laterality Blood Venipuncture / 04/15/2021 10:32 (Venipuncture or Unknown AM [facility] 10:36 AM CS T Line Start) Tiffany Rodriguez MD LAB_1 Performing Organization Address City/State/ZIP Code Phon e Number [address] [address] (ABNORMAL) Troponin I (04/15/2021 8:53 AM [facility]) P athologist Signature Troponin I 0.12 (H) 0.00 - 0.03 04/15/2021 [place] ng/mL 9:27 AM [facility] Specimen Anatomical Collection Method / Collection Time Recei bob Time (Source) Location / Volume Laterality Blood Venipuncture / 04/15/2021 8:53 04/15/2021 8:56 Unknown AM [facility] AM [facility] Papito Jewell MD LAB_1 Performing Organization Address City/State/ZIP Code Phon e Number [facility] [address] [place] [address] CT Angio Chest Abd Pel W/WO IV Cont Dissection (04/15/2021 7:16 AM [facility]) Anatomical Region Laterality Modality Abdomen, Pelvis, Chest, Lung, Vascular C omputed Tomography Specimen (Source) Anatomical Collection Method Collection Time Re ceived Time Location / / Volume Laterality 04/15/2021 7:16 AM [facility] Narrative 04/15/2021 5:57 PM [facility] EXAM: CT ANGIO CHEST ABD PEL W/WO IV CONT DISSECTION LOCATION: [facility] DATE/TIME: 04/15/2021 7:16 AM INDICATION: Recent repair of an aortic d issection on 03/27/2021 with right-sided chest pain and discomfort and low-grade fever. Patient was discharged from the hospital yesterday. Short of breath. COMPARISON: None. TECHNIQUE: CT angiogram chest abdomen pe lvis during arterial phase of injection of IV contrast. 2D and 3D MIP reconstructions were performed by the clinical lab technologist. Dose reduction techniques were used. CONTRAST: IOHEXOL [...] PEL W/WO IV CON T DISSECTION LOCATION: [facility] DATE/TIME: 04/15/2021 7:16 AM INDICATION: Recent repair of an aortic d issection on 03/27/2021 with right-sided chest pain and discomfort and low-grade fever. Patient was discharged from the hospital yesterday. Short of breath. COMPARISON: None. TECHNIQUE: CT angiogram chest abdomen pe lvis during arterial phase of injection of IV contrast. 2D and 3D MIP reconstructions were performed by the clinical lab technologist. Dose reduction techniques were used. CONTRAST: IOHEXOL [...] POC US BASIC CARDIAC (04/15/2021 6:42 AM [facility]) Anatomical Region Laterality Modality Chest, Cardiac, US Cardiac Other Specimen (Source) Anatomical Location Collection Method / Collectio n Time Received Time / Laterality Volume Narrative 04/15/2021 6:59 AM [facility] Papito Jewell MD ? 04/15/2021 ??7:00 AM [facility] Point of Care Ultrasound Interpretation POC US BASIC CARDIAC Date/Time: 04/15/2021 6:59 AM Performed by: Papito Jewell MD Authorized by: Papito Jewell MD Point of Care Ultrasound: Basic Cardiac Indications: Chest Pain Window: Adequate for full imaging and in terpretation Findings/ Impression (Within the context of limited lionj-vb-kumb ultrasound): Good Global Function and No Pericardial Effusion Papito Jewell MD RAD POC US XR Chest 2 Views (04/15/2021 6:04 AM [facility]) Anatomical Region Laterality Modality Chest, Lung Computed Radiography Specimen (Source) Anatomical Collection Method Collection Time Re ceived Time Location / / Volume Laterality 04/15/2021 6:04 AM [facility] Narrative 04/15/2021 6:16 AM [facility] EXAM: XR CHEST 2 VIEWS LOCATION: [facility] DATE/TIME: 04/15/2021 6:04 AM INDICATION: Right sided chest pain, eval for ptx COMPARISON: None. IMPRESSION: Heart size within normal izqiuerdo its status post sternotomy. Left atrial appendage [...] original. EXAM: XR CHEST 2 VIEWS LOCATION: [facility] DATE/TIME: 04/15/2021 6:04 AM INDICATION: Right [...] RAD GD (ABNORMAL) INR/Protime (04/15/2021 5:36 AM [facility]) P athologist Signature Protime 17.8 (H) 11.8 - 14.6 04/15/2021 [place] 6:09 AM [facility] INR 1.5 (H) 0.9 - 1.1 04/15/2021 [place] 6:09 AM [facility] Specimen Anatomical Collection Method / Collection Time Recei bob Time (Source) Location / Volume Laterality Blood Venipuncture / 04/15/2021 5:36 04/15/2021 5:47 Unknown AM [facility] AM [facility] Narrative [facility] - 04/15/2021 6:09 AM [facility] Therapeutic range determined by protocol established by anticoagulation provider. Papito Jewell MD LAB_1 Performing Organization Address City/State/ZIP Code Phon e Number [facility] [address] [place] [address] [phone] Procalcitonin (04/15/2021 5:36 AM [facility]) athologist Signature Procalcitonin 0.11 <=0.24 04/15/2021 [place] ng/mL 6:35 AM [facility] Specimen Anatomical Collection Method / Collection Time Recei bob Time (Source) Location / Volume Laterality Blood Venipuncture / 04/15/2021 5:36 04/15/2021 5:47 Unknown AM [facility] AM [facility] Narrative [facility] - 04/15/2021 6:35 AM [facility] Differential Diagnosis of Lower Respiratory Tract Infection [...] Organization Address City/State/ZIP Code Phon e Number [facility] [address] [place] [address] (ABNORMAL) BASIC METABOLIC PANEL (04/15/2021 5:36 AM [facility]) athologist Signature Sodium 134 (L) 136 - 145 04/15/2021 [place] mmol/L 6:16 AM [facility] Potassium 3.8 3.5 - 5.1 04/15/2021 [place] mmol/L 6:16 AM [facility] Chloride 100 98 - 109 04/15/2021 [place] mmol/L 6:16 AM [facility] CO2 23 20 - 29 04/15/2021 [place] mmol/L 6:16 AM [facility] Anion Gap 11 7 - 16 04/15/2021 [place] mmol/L 6:16 AM [facility] Calcium 9.5 8.4 - 10.4 04/15/2021 [place] mg/dL 6:16 AM [facility] BUN 17 7 - 26 04/15/2021 [place] mg/dL 6:16 AM [facility] Creatinine 0.75 0.73 - 04/15/2021 [place] 1.18 mg/dL 6:16 AM [facility] GFR, Estimated >60 >60 04/15/2021 [place] mL/min/1.7 6:16 AM [facility] 3m2 Glucose 114 (H) 70 - 100 04/15/2021 [place] mg/dL 6:16 AM [facility] Comment: The given reference range is fo r the fasting state. Non-fasting reference range for glucose is 70 - 180 mg/dL. Specimen Anatomical Collection Method / Collection Time Recei bob Time (Source) Location / Volume Laterality Blood Venipuncture / 04/15/2021 5:36 04/15/2021 5:47 Unknown AM [facility] AM [facility] Papito Jewell MD LAB_1 Performing Organization Address City/State/ZIP Code Phon e Number [facility] [address] [place] [address] (ABNORMAL) TROPONIN I (04/15/2021 5:36 AM [facility]) P athologist Signature Troponin I 0.14 (H) 0.00 - 0.03 04/15/2021 [place] ng/mL 6:35 AM [facility] Specimen Anatomical Collection Method / Collection Time Recei bob Time (Source) Location / Volume Laterality Blood Venipuncture / 04/15/2021 5:36 04/15/2021 5:47 Unknown AM [facility] AM [facility] Papito Jewell MD LAB_1 Performing Organization Address City/[facility]/ZIP Code Phon e Number [facility] [address] [place] [address] [phone] (ABNORMAL) HEMOGRAM/PLTS (04/15/2021 5:36 AM [facility]) Analysis Performed At Patho logist Time Signature WBC 11.5 (H) 3.5 - 10.5 04/15/2021 [place] x10(9)/L 5:54 AM [facility] RBC 3.19 (L) 4.32 - 04/15/2021 [place] 5.72 5:54 AM [facility] x10(12)/L Hemoglobin 9.5 (L) 13.5 - 04/15/2021 [place] 17.5 g/dL 5:54 AM [facility] HCT 29.4 (L) 38.8 - 04/15/2021 [place] 50.0 % 5:54 AM [facility] MCV 92.2 80.0 - 04/15/2021 [place] 100.0 fL 5:54 AM [facility] MCH 29.8 27.6 - 04/15/2021 [place] 33.3 pg 5:54 AM [facility] MCHC 32.3 31.5 - 04/15/2021 [place] 35.2 g/dL 5:54 AM [facility] RDW 13.5 11.9 - 04/15/2021 [place] 15.5 % 5:54 AM [facility] Platelets 496 (H) 150 - 450 04/15/2021 [place] x10(9)/L 5:54 AM [facility] Automated NRBC 0 <=0 /100 04/15/2021 [place] WBC 5:54 AM [facility] Specimen Anatomical Collection Method / Collection Time Recei bob Time (Source) Location / Volume Laterality Blood Venipuncture / 04/15/2021 5:36 04/15/2021 5:47 Unknown AM [facility] AM [facility] Papito Jewell MD LAB_1 Performing Organization Address City/State/ZIP Code Phon e Number [facility] [address] [place] [address] [phone] ECG 12-Lead STAT (04/15/2021 5:01 AM [facility]) P athologist Signature Ventricular Rate 107 BPM [facility] Atrial Rate 214 BPM [facility] QRS Duration 88 ms [facility] QT 334 ms [facility] QTc 445 ms [facility] P [place] 102 degrees [facility] R [place] 41 degrees [facility] T [place] 15 degrees [facility] Specimen (Source) Anatomical Collection Method Collection Time Re ceived Time Location / / Volume Laterality 04/15/2021 5:01 AM [facility] Narrative [facility] - 04/15/2021 10:06 AM [facility] Atrial flutter with 2:1 A-V conduction Abnormal [...] e Number [facility] [address] [place] [address] documented in this encounter Visit Diagnoses Diagnosis Right-sided chest pain - Primary Elevated troponin Other abnormal blood chemistry SOB (shortness of breath) Shortness of breath documented in this encounter Administered Medications Inactive Administered Medications - up to 3 most recent administrations Medication Order MAR Action Action Date Dose Rate Site oxyCODONE-acetaminophen Given 04/15/2021 5:41 AM [facility] 1 Tablet (PERCOCET) 5-325 MG per tablet 1 Tablet 1 Tablet, Oral, ONCE, On Tue04/15/21 at 0545, For 1 dose sodium chloride 0.9 % solution Starting on Tue04/15/21 at 0701, For 1 dose, Gloria Boogie: cabinet override sodium chloride 0.9% bolus 1,000 mL Started 04/15/2021 7:05 AM [facility] 1,000 mL 1,000 mL, Intravenous, Administer over 1 Hours, ONCE, On Tue04/15/21 at 0730, For 1 dose documented in this encounter Active and Recently Administered Medications Times are shown in [facility]. Scheduled Medication Order 04/13/2021 04/14/2021 04/15/2021 oxyCODONE-acetaminophen (PERCOCET) 5-325 MG per tablet 1 Tablet (COMPLETED) 0541 (Given - Provider: Gloria Boogie RN) 1 Tablet, Oral, ONCE, On Tue04/15/21 at 0545, For 1 dose sodium chloride 0.9% bolus 1,000 mL (COMPLETED) 0705 (Started - Provider: Gloria Boogie, RN)0900 (Infused - Provider: Karie Zavala RN) 1,000 mL, Intravenous, Administer over 1 Hours, ONCE, On Tue04/15/21 at 0730, For 1 dose documented in this encounter Care Teams Carpenter Mine Relationship Specialty Start Date End Date Aravind Decker MD PCP - General Family Practice 01/14/14 [facility] [place] [address] documented as of this encounter
--- OUTSIDE RECORDS SUMMARY | 2022-03-13 17:50 | XMS_ITS | Encounter Summary ---
:1945 Author Organization [employer] Address [address] [place] [address] Care Team Providers Name Role Phone Aravind Decker MD Primary Care Provider Reason for Visit Procedure/Equipment (Routine) - Closed Specialty Diagnoses / Procedures Referred By Contact Refer red To Contact Procedures Papito Jewell MD CT Angio Chest Abd Pel W/WO [address] [place] [address] Referral ID Status Reason Start Date Expiration Date Visits Requ ested Visits Authorized [id number] Closed 04/15/2021 07/15/2022 1 1 Encounter Details Date Type Department Care Team Description 04/15/2021 Ancillary Procedure [facility] CT [address] [place], [place] [id number] Social History Tobacco Use Types Packs/Day Years [...] ults for this PEL W/WO IV CONT [employer] procedure a re in DISSECTION the results section. documented in this encounter Visit Diagnoses Not on filedocumented in this encounter Administered Medications Inactive Administered Medications - up to 3 most recent administrations Medication Order MAR Action Action Date Dose Rate Site iohexol (OMNIPAQUE 350) 350 MG/ML Given 04/15/2021 7:23 AM [facility] 1 00 mL injection 100 mL 100 mL, Intravenous, ONCE (NON-SCHEDULED), Starting on Tue04/15/21 at 0722, Until Tue04/15/21 at 0723, For 1 dose documented in this encounter Care Teams Tongue And Quarter Stitcher Relationship Specialty Start Date End Date Aravind Decker MD PCP - General Family Practice 01/14/14 [address] [place] [address] documented as of this encounter
--- OUTSIDE RECORDS SUMMARY | 2022-03-13 17:50 | XMS_ITS | Encounter Summary ---
:1945 Author Organization [employer] Address [address] [place] [address] Care Team Providers Name Role Phone Aravind Decker MD Primary Care Provider Reason for Visit Procedure/Equipment (Routine) - Closed Specialty Diagnoses / Procedures Referred By Contact Refer red To Contact Procedures Papito Jewell MD POC US BASIC CARDIAC [address] [place] [id number] Referral ID Status Reason Start Date Expiration Date Visits Requ ested Visits Authorized [id number] Closed 04/15/2021 07/15/2022 1 1 Encounter Details Date Type Department Care Team Description 04/15/2021 Ancillary Procedure [address] [address] Social History Tobacco Use Types Packs/Day Years [...] 6:42 AM Results f or this [facility] procedure are i n the results section. documented in this encounter Results POC US BASIC CARDIAC (04/15/2021 6:42 AM [facility]) Anatomical Region Laterality Modality Chest, Cardiac, US Cardiac Other Specimen (Source) Anatomical Location Collection Method / Collectio n Time Received Time / Laterality Volume Narrative 04/15/2021 6:59 AM [facility] Papito Jewell MD ? 04/15/2021 ??7:00 AM [facility] Point of Care Ultrasound Interpretation POC US BASIC CARDIAC Date/Time: 04/15/2021 6:59 AM Performed by: Papito Jewell MD Authorized by: Papito Jewell MD Point of Care Ultrasound: Basic Cardiac Indications: Chest Pain Window: Adequate for full imaging and in terpretation Findings/ Impression (Within the context of limited fogdt-rm-eguu ultrasound): Good Global Function and No Pericardial Effusion Papito Jewell MD RAD POC US documented in this encounter Visit Diagnoses Not on filedocumented in this encounter Care Teams Bowling Ball Grader And Marker Relationship Specialty Start Date End Date Aravind Decker MD PCP - General Family Practice 01/14/[address] [place] [address] documented as of this encounter
--- OUTSIDE RECORDS SUMMARY | 2022-03-13 17:50 | XMS_ITS | Encounter Summary ---
:1945 Author Organization [facility] Address [address] [place] [address] Care Team Providers Name Role Phone Unavailable Primary Care Provider Unavailable Encounter Details Date Type Department Care Team Description 04/01/2016 Hospital Encounter HX [facility] ED Niko Nguyen D.O. [address] [place], [place] [phone] (Wo rk) Social History [...] or relatives? How often do you attend synagogue or Patient refused 2021 islam services? Do you belong to any clubs or No 08/31/2021 organizations such as synagogue groups, unions, fraternal or athletic groups, or [...] months, how many places have you lived? [id number] 08/31/2021 In the last 12 months, was there a time when you did No 08/31/2021 [address] to sleep or slept in a long-term (including now)? Sex Assigned at Date Recorded Not on file documented as of this encounter Last Filed Vital Signs Vital Sign Reading Time Taken Comments Blood Pressure 124/77 04/01/2016 11:15 PM SINTER FEEDER Pulse 69 04/01/2016 11:15 PM SINTER FEEDER Temperature - - Respiratory Rate 18 04/01/2016 11:15 PM SINTER FEEDER Oxygen Saturation - - Inhaled Oxygen Concentration - - Weight 78.8 kg (173 lb 11.6 oz) 04/01/2016 8:44 PM SINTER FEEDER Height 185.4 cm (6' 1) 04/01/2016 11:15 PM SINTER FEEDER Body Mass Index 22.92 04/01/2016 8:44 PM SINTER FEEDER documented in this encounter Discharge Summaries Karie Russell R.N. - 04/01/2016 11:52 PM CST ED Discharge Instructions [address] [place] [id number] Name: PO ENGLISH Date of : 1945 12:00 AM Visit Date: 04/01/2016 8:40 PM [facility] Number: [id number] Address: [address] [place], [place] [id number] Primary Care Provider: PCP, ROMAINE IMPORTANT: [facility] in [place] would like to thank you for allowing us to assistyou with your healthcare needs. The following includes patient education materials and information regarding your injury/illness. 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 Do not take your warfarin tomorrow or Tuesday. Hold it on Tuesday also, if you are still having bloody urine on Tuesday. Call the [facility] appointment line to schedule Urology follow up [...] 8 hours or increasing bladder pressure ?? [phone] [facility], [address] [place] [address], [place] [address]. All rights reserved. This information is not [...] pain or coolness of one leg ?? [phone] Linda Marshall, [address] [place] [address], [place] [address]. All rights reserved. This information is not [...] if you dont have one. Go to [email or web address] and click on Create Your Account. Then, follow the directions to complete the online form. Youll be asked for your [facility] number which you can find at the [...] arrange a ride home with a responsible green party. SHAHBAZ Navarrete GERALD BERNARD , or responsible green party have received this information and my questions [...] arrange a ride home with a responsible green party. I, PO ENGLISH , or responsible green party have received this information and my questions have been answered. I have discussed any challenges I see with this plan with the nurse or physician. Patient Signature or Responsible Constitution Party/Relationship Date Time Provider Signature Date Time This document has images extracted. Please consider using [employer] for all your patient education needs. Source: [facility] Document Id: [id number] ER FEEDER Karie Russell R.N. - 04/01/2016 11:52 PM CST ED Depart Summary [facility] Emergency Department Clinical Discharge Summary PERSON INFORMATION Name PO ENGLISH Age 71 Years 1945 12:00 AM Sex Male Language Mexican PCP PCP, ELSEWHERE Marital Status Visit Id Visit Reason Hematuria; blood in urine Specialty Enc Type Emergency Med Service Emergency Medicine Referred by Track Group MAQN ED Discharge 04/01/2016 11:43 PM Tracking Id [id number] Checkout 04/01/2016 11:43 PM Checkin 04/01/2016 8:40 PM Acuity 3 -Urgent Dispo Type * Discharged to Home or Self Care Arrival 04/01/2016 8:40 PM Reg Status LOS 000 03:03 Address: [address] [place] [address] Comment: PROVIDER INFORMATION Provider Role Provider Contact Time NIKO NGUYEN DO ED Provider 04/01/16 20:50 TAM HERNANDEZ RIDING COACH Nurse 04/01/16 21:09 KARIE RUSSELL RN ED Nurse 04/01/16 21:41 DIAGNOSIS 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 Do not take your warfarin tomorrow or Tuesday. Hold it on Tuesday also, if you are still having bloody urine on Tuesday. Call the [facility] appointment line to schedule Urology follow up regarding your kidney stone. Return to the emergency department if you feel that your symptoms are worsening. [facility] Id: [id number] ER FEEDER documented in this encounter Medications at Time of Discharge Medication Sig Dispensed Refills Start Date End Date cholecalciferol (VITAMIN Take 2 capsules by 0 D3) 50 mcg (2,000 Unit) mouth daily. capsule documented as of this encounter ED Notes Karie Russell RTadeo. - 04/01/2016 11:43 PM CST ED Disposition Summary ED Disposition Summary Entered On: 04/01/2016 23:51 SINTER FEEDER Performed On: 04/01/2016 23:43 SINTER FEEDER by KARIE RUSSELL RIDING COACH Disposition Summary Present in Room During Exam/Procedure : Alone Mode of Discharge : Ambulatory Transportation : Private vehicle Printed Discharge Instructions Given to Patient : Yes Patient Status at Discharge from ED : Improved KARIE RUSSELL RN - 04/01/2016 23:51 SINTER FEEDER [facility] Id: [id number] SINTER FEEDER!7 ER FEEDER Karie Russell R.N. - 04/01/2016 11:43 PM CST ED Education ED Education Entered On: 04/01/2016 23:52 SINTER FEEDER Performed On: 04/01/2016 23:43 SINTER FEEDER by KARIE RUSSELL RN Education ED Education Grid Topics : Discharge instructions/Medication list Individuals Taught : Patient Barriers to Learning : None evident Teaching Method : Explanation, Printed materials Teaching Evaluation : Able to teach back, Verbalizes understanding KARIE RUSSELL RN - 04/01/2016 23:51 SINTER FEEDER Source: [facility] Document Id: [id number] SINTER FEEDER!9 ER FEEDER Karie Russell R.N. - 04/01/2016 11:40 PM CST ED Treatments and Procedures ED Treatments and Procedures Entered On: 04/01/2016 23:51 SINTER FEEDER Performed On: 04/01/2016 23:40 SINTER FEEDER by KARIE RUSSELL RN Peripheral IV Peripheral IV Assess/Intervention Grid Peripheral IV #1 IV Activity : Discontinue Removal : Catheter intact, Hemostasis within expected timeframe Date of Insertion : 04/01/2016 SINTER FEEDER Discontinued Date : 04/01/2016 SINTER FEEDER IV Site : Wrist Laterality : Left Catheter Size : 18 Catheter Type : Over the needle KARIE RUSSELL RN - 04/01/2016 23:50 SINTER FEEDER Source: [facility] Document Id: [id number] SINTER FEEDER!12 ER FEEDER Karie Russell R.N. - 04/01/2016 11:15 PM CST ED Nurse Reassess ED Nurse Reassess Entered On: 04/01/2016 23:50 SINTER FEEDER Performed On: 04/01/2016 23:15 SINTER FEEDER by KARIE RUSSELL RN Pain Assessment Pain Symptoms : Yes KARIE RUSSELL RN - 04/01/2016 23:50 SINTER FEEDER Pain Scale Pain Scale Verbal 0-10 : Open KARIE RUSSELL RN - 04/01/2016 23:50 SINTER FEEDER Pain Pain Assessment Grid Pain 1 Location : Lower back Laterality : Right Intensity : 4 KARIE RUSSELL RN - 04/01/2016 23:50 SINTER FEEDER Comfort Measures Comfort Measures Response : Comfort level increased KARIE RUSSELL RN - 04/01/2016 23:50 SINTER FEEDER Resp Reassess Respiratory Patient Stated Symptoms : None KARIE RUSSELL RN - 04/01/2016 23:50 SINTER FEEDER CV Reassess CV Patient Stated Symptoms : None KARIE RUSSELL RN - 04/01/2016 23:50 SINTER FEEDER /OB Reassess /OB Note : unchanged KARIE RUSSELL RN - 04/01/2016 23:50 SINTER FEEDER Source: [facility] Document Id: [id number] SINTER FEEDER!19 ER FEEDER Karie Russell R.N. - 04/01/2016 10:12 PM CST ED Nurse Reassess ED Nurse Reassess Entered On: 04/01/2016 22:13 SINTER FEEDER Performed On: 04/01/2016 22:12 SINTER FEEDER by KARIE RUSSELL RN Pain Assessment Pain Symptoms : Yes KARIE RUSSELL RN - 04/01/2016 22:12 SINTER FEEDER Pain Scale Pain Scale Verbal 0-10 : Open KARIE RUSSELL RN - 04/01/2016 22:12 SINTER FEEDER Pain Pain Assessment Grid Pain 1 Location : Lower back Laterality : Right Intensity : 7 Time Pattern : Acute KARIE RUSSELL RN - 04/01/2016 22:12 SINTER FEEDER Comfort Measures Patient Response : back from ct. states getting onto ct bed made his chronic back pain flare up Comfort Measures Response : Comfort level decreased KARIE RUSSELL RN - 04/01/2016 22:12 SINTER FEEDER Resp Reassess Respiratory Patient Stated Symptoms : None KARIE RUSSELL RN - 04/01/2016 22:12 SINTER FEEDER CV Reassess CV Patient Stated Symptoms : None KARIE RUSSELL RN - 04/01/2016 22:12 SINTER FEEDER Source: [facility] Document Id: [id number] SINTER FEEDER!19 ER FEEDER Karie Russell R.N. - 04/01/2016 9:38 PM CST ED Nurse Reassess ED Nurse Reassess Entered On: 04/01/2016 21:39 SINTER FEEDER Performed On: 04/01/2016 21:38 SINTER FEEDER by KARIE RUSSELL RN Pain Assessment Pain Symptoms : No KARIE RUSSELL RN - 04/01/2016 21:38 SINTER FEEDER Comfort Measures Patient Response : denies abdominal pain. c/o chronic back pain Comfort Measures Response : Comfort level unchanged KARIE RSUSELL RN - 04/01/2016 21:38 SINTER FEEDER Resp Reassess Respiratory Patient Stated Symptoms : None KARIE RUSSELL RN - 04/01/2016 21:38 SINTER FEEDER CV Reassess CV Patient Stated Symptoms : None KARIE RUSSELL RN - 04/01/2016 21:38 SINTER FEEDER Neuro Reassess Last Well Time Known : Not applicable Orientation : Oriented x 3 Characteristics of Speech : Clear Level of Consciousness : Alert KARIE RUSSELL RN - 04/01/2016 21:38 SINTER FEEDER GI Reassess GI Patient Stated Symptoms : None KARIE RUSSELL RN - 04/01/2016 21:38 SINTER FEEDER /OB Reassess Patient Stated Symptoms : Other: aching KARIE RUSSELL RN - 04/01/2016 21:38 SINTER FEEDER Source: [facility] Document Id: [id number] SINTER FEEDER!19 ER FEEDER Tam Hernandez RPasha - 04/01/2016 9:31 PM CST ED Treatments and Procedures ED Treatments and Procedures Entered On: 04/01/2016 21:32 SINTER FEEDER Performed On: 04/01/2016 21:31 SINTER FEEDER by TAM HERNANDEZ RN Peripheral IV Peripheral IV Assess/Intervention Grid Peripheral IV #1 IV Activity : Start Number of Attempts : 1 Date of Insertion : 04/01/2016 SINTER FEEDER IV Site : Wrist Laterality : Left Catheter Size : 18 Catheter Type : Over the needle Site Condition : No complications TAM HERNANDEZ RN - 04/01/2016 21:31 SINTER FEEDER Source: [facility] Document Id: [id number] SINTER FEEDER!12 ER FEEDER Niko Nguyen D.O. - 04/01/2016 9:02 PM [...] Note : Chief Complaint Description 04/01/2016 20:44 SINTER FEEDER Chief Complaint Description 71 y.o. male presents with hematuria of a more constant nature for the past few days. Hx lap tiny in [place] last month. Denies pain or burning, no [...] Examination Vital Signs: Vital Signs 04/01/2016 20:44 SINTER FEEDER Temperature Core 37.2 DegC Peripheral Pulse Rate 77 /min Respiratory Rate 18 /min SpO2 99 % Systolic Blood Pressure 121 mmHg Diastolic Blood Pressure 82 mmHg Mean Arterial Pressure 95 mmHg BP Location Right upper , Measurements 04/01/2016 20:44 SINTER FEEDER Height 185.42 cm Height Source Stated Dosing Weight 78.80 kg Actual Weight 78.8 kg Weight Source Standing scale Body Mass Index 22.92 kg/m2 , SpO2 04/01/2016 20:44 SINTER FEEDER SpO2 99 % . General: Alert and [...] Laboratory: PT/INR (Order Processing): Stat, 04/01/2016 21:03 SINTER FEEDER, Once Urinalysis with Culture if Indicated (Order Processing): Stat, 04/01/2016 21:03 SINTER FEEDER, Once, Urine, Clean Void (Midstream) Comprehensive Metabolic Panel (Order Processing): Stat, 04/01/2016 21:03 SINTER FEEDER, Once CBC (includes Auto Differential) (Order Processing): Stat, 04/01/2016 21:03 SINTER FEEDER, Once Radiology: Abd Pelvis CT w/o Contrast (Order Processing): 04/01/2016 21:03 SINTER FEEDER, hematuria. no pain. Lap tiny 1month ago., Stat, Patient Bed, Once, 04/01/2016 21:03 SINTER FEEDER, [facility] Results review:Lab results : Lab View 04/01/2016 21:11 SINTER FEEDER Hgb 13.2 g/dL LOW Hct 40.5 % WBC 4.6 x10(9)/L RBC 4.30 x10(12)/L LOW MCV 94.2 fL RDW 13.2 % Platelet 208 x10(9)/L Neutro Absolute 2.65 10(9)/L Lymph Absolute 1.39 x10(9)/L [place] Absolute 0.39 x10(9)/L Eos Absolute 0.13 x10(9)/L [...] U/L Bili Total 0.5 mg/dL 04/01/2016 21:03 SINTER FEEDER UA Color Yellow UA Clarity Cloudy UA [...] having bloody urine on Tuesday. Call the [facility] appointment line to schedule Urology follow up regarding your kidney stone. Return to the emergency department if you feel that your symptoms are worsening.. Counseled: Patient, Regarding diagnosis, Regarding diagnostic results, Regarding treatment plan, Patient indicated understanding of instructions. Orders: Launch Orders Patient Care: Discharge ED Patient (Order Processing): 04/01/2016 23:10 SINTER FEEDER, Once. Addendum (Comment: Please note this report [...] NGUYEN DO On: 04/01/2016 11:11 PM Source: [facility] Document Id: [id number]} ER FEEDER aTm Hernandez RPasha - 04/01/2016 8:44 PM CST ED Primary Assessment Document Has Been Updated ED Primary Assessment Entered On: 04/01/2016 20:51 SINTER FEEDER Performed On: 04/01/2016 20:44 SINTER FEEDER by TAM HERNANDEZ RN Reason For Visit (As Of: 04/01/2016 20:51:44 SINTER FEEDER) Diagnoses(Active) Hematuria Date: 04/01/2016 ; Diagnosis Type: Reason For Visit ; Confirmation: Complaint of ; Clinical Dx: Hematuria ; Classification: Medical ; Clinical Service: Emergency medicine ; Code: PNED ; Probability: 0 ; Diagnosis Code: [id number] Triage Chief Complaint Description : 71 y.o. male presents with hematuria of a more constant nature for thepast few days. Hx lap tiny in [place] last month. Denies pain or burning, no prostate hx Information Given By : Patient Present in Room During Exam/Procedure : Alone Mode of Arrival ED : Private vehicle Track : Medical Languages : Mexican Vital Signs Assessed : Yes Treatments Prior to Arrival : None Is Patient Female and 13-50 no hysterectomy : No TAM HERNANDEZ RN - 04/01/2016 20:44 SINTER FEEDER Vital Signs Temperature Core : 37.2 DegC(Converted [...] kg/m2 TAM HERNANDEZ RN - 04/01/2016 20:44 SINTER FEEDER Pain Assessment Pain Symptoms : No TAM HERNANDEZ RN - 04/01/2016 20:44 SINTER FEEDER ED Physician Notification Time ED Physician Notification Time : 04/01/2016 20:49 SINTER FEEDER TAM HERNANDEZ RN - 04/01/2016 20:44 SINTER FEEDER JOSE ALBERTO JOSE ALBERTO Level 1 : No JOSE ALBERTO Level 2 : No JOSE ALBERTO Level 3 : Many TAM HERNANDEZ RN - 04/01/2016 20:44 SINTER FEEDER DCP GENERIC CODE Tracking Acuity : 3 -Urgent Tracking Group : MAQN ED TAM HERNANDEZ RN - 04/01/2016 20:44 SINTER FEEDER Allergy (As Of: 04/01/2016 20:51:44 SINTER FEEDER) Respiratory Airway : Patent Respirations : Unlabored Respiratory Pattern : Regular TAM HERNANDEZ RN - 04/01/2016 20:44 SINTER FEEDER Cardiovascular Heart Rhythm : Regular Skin Color : Normal for ethnicity Skin Description : Dry Skin Temperature : Warm TAM HERNANDEZ RN - 04/01/2016 20:44 SINTER FEEDER Neurological Last Well Time Known : Not applicable Level of Consciousness : Alert Orientation : Oriented x 3 Characteristics of Speech : Clear TAM HERNANDEZ RN - 04/01/2016 20:44 SINTER FEEDER ED Psychosocial Affect/Behavior : Calm, Cooperative Domestic Abuse Concerns : None Behavioral Health Screen/Safety Assmt : No TAM HERNANDEZ RN - 04/01/2016 20:44 SINTER FEEDER Gastrointestinal Nutrition ED : Adequate TAM HERNANDEZ RN - 04/01/2016 20:44 SINTER FEEDER Musculoskeletal Fall Prevention Education Provided : Yes TAM HERNANDEZ RN - 04/01/2016 20:44 SINTER FEEDER Social Habits Exposure to Tobacco Smoke : Other: former Smoking Status : Former smoker Tobacco 2A : Yes Tobacco Use/Currently Using : No Tobacco Use/Last 30 Days : No Tobacco Use/Last 12 months : No TAM HERNANDEZ RN - 04/01/2016 20:44 SINTER FEEDER Source: [facility] Document Id: [id number] SINTER FEEDER!68 ER FEEDER documented in this encounter Miscellaneous Notes Miscellaneous - Karie Russell RSheliaNShelia - 04/01/2016 11:43 PM CST Valuables/Belongings Valuables/Belongings Entered On: 04/01/2016 23:52 SINTER FEEDER Performed On: 04/01/2016 23:43 SINTER FEEDER by KARIE RUSSELL RN Valuables/Belongings Room Orientation/Facility Policy Reviewed : Yes Belongings Sent Home With : patient Home Medication Disposition : None brought in with patient KARIE RUSSELL RN - 04/01/2016 23:52 SINTER FEEDER [facility] Id: [id number] SINTER FEEDER!5 ER FEEDER Miscellaneous - Geovanni, Historical Provider Ser - 04/01/2016 11:43 PM SINTER FEEDER Coding Summary-Paper Based CODING DATE: 04/12/2016 FINAL [facility] STATUS: * Discharged to Home or Self [...] [facility] Date Saved: 04/12/2016 08:02 am Source: [facility] Document Id: [id number] Miscellaneous - Karie Russell RSheliaN. - 04/01/2016 8:40 PM CST Facility Charge Ticket 2.0 11.0 DX Facility Charge Ticket 2.0 11.0 DX Entered On: 04/01/2016 23:52 SINTER FEEDER Performed On: 04/01/2016 20:40 SINTER FEEDER by KARIE RUSSELL RN Facility Charge Ticket [...] Nursing Notes ED Primary Assessment,04/01/16 20:44,TAM HERNANDEZ RIDING COACH Nurse Reassess,04/01/16 23:15,KARIE RUSSELL RIDING COACH Nurse Reassess,04/01/16 22:12,KARIE RUSSELL RIDING COACH Nurse Reassess,04/01/16 21:38,KARIE RUSSELL RN [place] Nursing Assessment : Triage and 3-5 nursing assessments [place] Disposition : Discharge Disposition RTF : discharge [place] Total Points with Diagnosis Control : 9 [place]x Visit Level : 55917 Level 4 Treatments Prior to Arrival : None KARIE RUSSELL RN - 04/01/2016 23:52 SINTER FEEDER Source: [facility] Document Id: [id number] SINTER FEEDER!19 ER FEEDER documented in this encounter Plan of Treatment Not on filedocumented as of this encounter Procedures Procedure Name Priority Date/Time Associated Comments Diagnosis AUTOMATED Routine 04/01/2016 9:11 PM Results f or this DIFFERENTIAL, B SINTER FEEDER procedure ar e in the results section. PROTHROMBIN TIME (PT), Routine 04/01/2016 9:11 PM Results for this P SINTER FEEDER procedure are i n the results section. CBC WITH DIFFERENTIAL, Routine 04/01/2016 9:11 PM Results for this B SINTER FEEDER procedure are i n the results section. COMPREHENSIVE Routine 04/01/2016 9:11 PM Results for this METABOLIC PANEL, S/P SINTER FEEDER procedu re are in the results section. HXUR % DYSMORPHIC RBC Routine 04/01/2016 9:03 PM Results for this SINTER FEEDER procedure are i n the results section. CT ABDOMEN KIDNEY Routine 04/01/2016 9:03 PM Resu lts for this STONE WITHOUT IV SINTER FEEDER procedure a re in CONTRAST the results section. URINALYSIS, MIDSTREAM, Routine 04/01/2016 9:03 PM Results for this WITH CULTURE IF SINTER FEEDER procedure ar e in INDICATED the results section. documented in this encounter Results Automated Differential (04/01/2016 9:11 PM SINTER FEEDER) athologist Signature Absolute 2.65 1.70 - POWERCHART Neutrophils 7.00 109L Lymphocytes 1.39 0.90 - POWERCHART 2.90 X109L Monocytes 0.39 0.30 - POWERCHART 0.90 X109L Eosinophils 0.13 0.05 - POWERCHART 0.50 X109L Absolute 0.02 0.00 - POWERCHART Basophil 0.30 X109L Specimen Anatomical Collection Method Collection Time Receive d Time (Source) Location / / Volume Laterality Blood 04/01/2016 9:11 PM 6 9:11 SINTER FEEDER PM SINTER FEEDER Niko Nguyen D.O. LAB BLOOD ADD-ON Performing Organization Address City/State/ZIP Code Phon e Number POWERCHART (ABNORMAL) PT (Prothrombin Time) with INR (04/01/2016 9:11 PM SINTER FEEDER) [facility] [employer] Method Time Signature Prothrombin 39.8 (H) 8.8 [...] / Volume Laterality Blood 04/01/2016 9:11 PM SINTER FEEDER Niko Nguyen D.O. LAB BLOOD ADD-ON Performing Organization Address City/State/ZIP Code Phon e Number POWERCHART (ABNORMAL) CBC with Differential (04/01/2016 9:11 PM SINTER FEEDER) [facility] [employer] Method Time Signature Leukocytes 4.6 3.5 - 10.5 POWERCHART X109L Erythrocytes 4.30 (L) 4.32 - POWERCHART 5.72 F0633F Hemoglobin 13.2 (L) 13.5 - POWERCHART 17.5 GDL Hematocrit 40.5 38.8 - POWERCHART 50.0 MCV 94.2 81.2 - POWERCHART 95.1 FL HX RDW 13.2 11.8 - POWERCHART 15.6 Platelet Count 208 150 - 450 POWERCHART X109L HXDifferential? Auto POWERCHART Specimen (Source) Anatomical Collection Method Collection Time Re ceived Time Location / / Volume Laterality Blood 04/01/2016 9:11 PM SINTER FEEDER Niko Nguyen D.O. LAB BLOOD ADD-ON Performing Organization Address City/State/ZIP Code Phon e Number POWERCHART (ABNORMAL) CMP (Comprehensive Metabolic Panel) (04/01/2016 9:11 PM SINTER FEEDER) [facility] gist Method Time Signature Alanine 22 7 [...] POWERCHART MLMIN[facility] eGFR Black/ >60.0 >=60.0 POWERCHART [place] ML[facility] Bilirubin, Total, S 0.5 <=1.2 MGDL POWERCHAR T Total Protein, S 7.6 6.3 - 7.9 POWERCHART GDL Glucose 147 (H) 70 - 140 POWERCHART MGDL Specimen (Source) Anatomical Collection Method Collection Time Re ceived Time Location / / Volume Laterality Blood 04/01/2016 9:11 PM SINTER FEEDER Niko Nguyen D.O. LAB BLOOD ADD-ON Performing Organization Address City/State/ZIP Code Phon e Number POWERCHART HXUR % DYSMORPHIC RBC (04/01/2016 9:03 PM SINTER FEEDER) athologist Signature Dysmorphic RBC <=25 <=25 POWERCHART Specimen Anatomical Collection Method Collection Time Receive d Time (Source) Location / / Volume Laterality Urine, First 04/01/2016 9:03 PM 6 9:03 Voided SINTER FEEDER PM SINTER FEEDER Niko Nguyen D.O. LAB HISTORICAL ORDERS Performing Organization Address City/[facility] Phon e Number POWERCHART (ABNORMAL) Urinalysis, Midstream, with culture if indicated (04/01/2016 9:03 PM SINTER FEEDER) [facility] gist Method Time Signature HXUr Color Yellow Colorless POWERCHART Clarity Cloudy (A) Clear POWERCHART Glucose Negative Negative POWERCHART MGDL HXBILIRUBIN Negative Negative POWERCHART Ketones, QL(U) Negative Negative POWERCHART MGDL Specific 1.020 POWERCHART [place], POCT, U Comment: Reference Range Specific [place]: 1.000-1.035 HXBLOOD Large (A) Negative POWERCHART pH, [...] Laterality Urine, First 04/01/2016 9:03 PM Voided SINTER FEEDER Niko Nguyen D.O. LAB URINE ORDERABLES Performing Organization Address City/[facility] Phon e Number POWERCHART CT Abdomen Kidney Stone without IV Contrast (04/01/2016 9:03 PM SINTER FEEDER) Anatomical Region Laterality Modality Abdomen, Pelvis Computed Tomography Specimen (Source) Anatomical Collection Method Collection Time Re ceived Time Location / / Volume Laterality 04/01/2016 9:03 PM SINTER FEEDER Addenda Addendum by Provider, Isaias Mo 04/01/2016 9:03 PM SINTER FEEDER RAD^^^MA CT Stone Protocol 04/01/2016 21:03:00 Narrative 04/02/2016 7:40 AM SINTER FEEDER Exam: CT of abdomen and pelvis History: [...] Nonobstructing right renal stone. I agree with [facility] [[email or web address]] preliminary report. Procedure Note Dutch Toledo M.D. [...] Nonobstructing right renal stone. I agree with [facility] [[email or web address]] preliminary report. Leslie Howard(R)(CT), R.T.(R)(M) IMG CT PROCEDURE S documented in this encounter Visit Diagnoses Not on filedocumented in this encounter
--- OUTSIDE RECORDS SUMMARY | 2022-03-13 17:50 | XMS_ITS | Encounter Summary ---
:1945 Author Organization [facility] Address [address] [place] [address] Care Team Providers Name Role Phone Aravind Decker MD Primary Care Provider Reason for Visit Procedure/Equipment (Routine) - Closed Specialty Diagnoses / Procedures Referred By Contact Refer red To Contact Procedures Jessica Easton MD CT Angio Chest W IV Cont PE [address] [place] [address] Referral ID Status Reason Start Date Expiration Date Visits Requ ested Visits Authorized [id number] Closed 04/20/2021 07/20/2022 1 1 Encounter Details Date Type Department Care Team Description [facility]/20[facility] [address] [place], [place] [id number] Social History Tobacco Use Types Packs/Day Years [...] Re sults for this CONT PE STUDY EMBEDDED SOFTWARE DEVELOPER procedure are in the results section. documented in this encounter Visit Diagnoses Not on filedocumented in this encounter Administered Medications Inactive Administered Medications - up to 3 most recent administrations Medication Order MAR Action Action Date Dose Rate Site iohexol (OMNIPAQUE 350) 350 MG/ML Given 04/20/2021 4:06 AM EMBEDDED SOFTWARE DEVELOPER 1 00 mL injection 100 mL 100 mL, Intravenous, ONCE (NON-SCHEDULED), Starting on Tue04/20/21 at 0406, Until Tue04/20/21 at 0406, For 1 dose documented in this encounter Care Teams Sales Agent Food Vending Service Relationship Specialty Start Date End Date Aravind Decker MD PCP - General Family Practice 01/14/14 [address] [place] [address] documented as of this encounter
--- OUTSIDE RECORDS SUMMARY | 2022-03-13 17:50 | XMS_ITS | Encounter Summary ---
:1945 Author Organization [facility] Address [address] [place] [address] Care Team Providers Name Role Phone Unavailable Primary Care Provider Unavailable Reason for Visit Reason Comments Breathing Problem Encounter Details Date Type Department Care Team Description 05/09/2021 Nurse Triage Department of Beckie Cooper, Breathing Problem Medicine in [place], [place] [address] [place] [address] [id number] [phone] Social History Tobacco Use Types Packs/Day Years [...] or relatives? How often do you attend cheondoism or Patient refused 2021 christianity services? Do you belong to any clubs or No 08/31/2021 organizations such as cheondoism groups, unions, fraternal or athletic groups, or [...] months, how many places have you lived? [id number] 08/31/2021 In the last 12 months, was there a time when you did No 08/31/[address] to sleep or slept in a skilled nursing (including now)? Sex Assigned at Date Recorded Not on file documented as of this encounter Miscellaneous Notes Telephone Encounter - Beckie Villafuerte R.N. - 05/09/2021 9:57 AM KILN STACKER Chief Complaint / Reason for Call Patient [...] heart beating (i.e., palpitations) Protocols used: BREATHING [id number] STACKER documented in this encounter Plan of Treatment Not on filedocumented as of this encounter Visit Diagnoses Not on filedocumented in this encounter
--- OUTSIDE RECORDS SUMMARY | 2022-03-13 17:50 | XMS_ITS | Encounter Summary ---
:1945 Author Organization [facility] Address [address] [place] [address] Care Team Providers Name Role Phone Aravind Decker MD Primary Care Provider Reason for Referral Procedure/Equipment (Routine) - Closed Specialty Diagnoses / Procedures Referred By Contact Refer red To Contact Procedures Jessica Easton MD CT Angio Chest W IV Cont PE [address] [place] [address] Referral ID Status Reason Start Date Expiration Date Visits Requ ested Visits Authorized [id number] Closed 04/20/2021 07/20/2022 1 1 CAL AFFAIRS SPECIALIST Reason for Visit Reason Comments Chest Pain TACHYCARDIA Fever Encounter Details Date Type Department Care Team Description 04/20/2021 Emergency [facility] Jessica Easton MD SOB (shortness of Emergency Department [address] [facility]) (Primary Dx) [address] [place] [address] [place] [address] [phone] Social History Tobacco Use Types Packs/Day Years [...] Comments Blood Pressure 110/57 04/20/2021 5:22 AM MEDICAL AFFAIRS SPECIALIST Pulse 96 04/20/2021 5:22 AM MEDICAL AFFAIRS SPECIALIST Temperature 36.9 ??C (98.5 ??F) 04/20/2021 2:42 AM MEDICAL AFFAIRS SPECIALIST Respiratory Rate 24 04/20/2021 5:22 AM MEDICAL AFFAIRS SPECIALIST Oxygen Saturation 96% 04/20/2021 5:22 AM MEDICAL AFFAIRS SPECIALIST Inhaled Oxygen Concentration - - Weight 73.5 kg (162 lb) 04/20/2021 2:42 AM MEDICAL AFFAIRS SPECIALIST Height 182.9 cm (6') 04/20/2021 2:42 AM MEDICAL AFFAIRS SPECIALIST Body Mass Index 21.97 04/20/2021 2:42 AM MEDICAL AFFAIRS SPECIALIST documented in this encounter Discharge Instructions Discharge [...] take the full course of your medications. CAL AFFAIRS SPECIALIST AttachmentsThe following attachments cannot be sent through Care Everywhere.SOB (Shortness of Breath) (Tunisian)Pneumonia (Tunisian)documented in this encounter Medications at Time of [...] Ramirez RN - 04/20/2021 5:28 AM CST [facility] ED Nursing Discharge Note Patient discharged: to [...] placed in this encounter. ---End of Report--- CAL AFFAIRS SPECIALIST Jessica Cabrera MD - 04/20/2021 3:01 AM CST [facility] Emergency Medicine Visit Note Chief Complaint: Chest Pain, TACHYCARDIA, and Fever HPI 76-year-old man who recently had a repair of an ascending aortic aneurysm at [facility] that was complicated by multiple chest tubes and pneumothorax and pleural effusions. He comes in now with complaint of shortness of breath and a racing heartbeat. He has also had a fever up to 101.7 at home. He feels generally ill and seems to be getting worse. He was discharged from the hospital at [place] last Tuesday. He was then seen on [...] of 04/20/21 0503 SOB (shortness of breath) CAL AFFAIRS SPECIALIST documented in this encounter Plan of Treatment Not on filedocumented as of this encounter Procedures Procedure Name Priority Date/Time Associated Comments Diagnosis CT ANGIO CHEST W IV STAT 04/20/2021 4:05 AM Re sults for this CONT PE STUDY MEDICAL AFFAIRS SPECIALIST procedure are in the results section. INR/PROTIME STAT 04/20/2021 3:12 AM Results f or this MEDICAL AFFAIRS SPECIALIST procedure are i n the results section. BRAIN NATRIURETIC STAT 04/20/2021 3:11 AM Resu lts for this PEPTIDE (BNP) MEDICAL AFFAIRS SPECIALIST procedure are in the results section. CBC AND DIFFERENTIAL STAT 04/20/2021 3:09 AM R esults for this PANEL MEDICAL AFFAIRS SPECIALIST procedure are i n the results section. LACTATE, WHOLE BLOOD Routine 04/20/2021 3:09 AM R esults for this MEDICAL AFFAIRS SPECIALIST procedure are i n the results section. PROCALCITONIN Routine 04/20/2021 3:09 AM Results for this MEDICAL AFFAIRS SPECIALIST procedure are i n the results section. COMPLETE BLOOD STAT 04/20/2021 3:09 AM Results for this COUNT-W/DIFF MEDICAL AFFAIRS SPECIALIST procedure are i n the results section. BASIC METABOLIC PANEL STAT 04/20/2021 3:09 AM Results for this MEDICAL AFFAIRS SPECIALIST procedure are i n the results section. TROPONIN I STAT 04/20/2021 3:09 AM Results f or this MEDICAL AFFAIRS SPECIALIST procedure are i n the results section. C-REACTIVE PROTEIN STAT 04/20/2021 3:09 AM Res ults for this MEDICAL AFFAIRS SPECIALIST procedure are i n the results section. ECG-ROUTINE 12 LEAD; STAT 04/20/2021 2:47 AM R esults for this INTRPT & REPRT MEDICAL AFFAIRS SPECIALIST procedure are in the results section. documented in this encounter Results CT Angio Chest W IV Cont PE Study (04/20/2021 4:05 AM MEDICAL AFFAIRS SPECIALIST) Anatomical Region Laterality Modality Chest, Lung, Vascular Computed Tomograph y Specimen (Source) Anatomical Collection Method Collection Time Re ceived Time Location / / Volume Laterality 04/20/2021 4:05 AM MEDICAL AFFAIRS SPECIALIST Narrative 04/20/2021 4:25 AM MEDICAL AFFAIRS SPECIALIST EXAM: CT ANGIO CHEST W IV CONT PE STUDY LOCATION: [facility] DATE/TIME: 04/20/2021 4:05 AM INDICATION: Chest pain [...] Cholecystectomy clips. MUSCULOSKELETAL: Prior sternotomy. No ac [place] osseous findings. IMPRESSION: 1. ??Negative for pulmonary [...] CHEST W IV CONT PE STUDY LOCATION: [facility] DATE/TIME: 04/20/2021 4:05 AM INDICATION: Chest pain [...] Cholecystectomy clips. MUSCULOSKELETAL: Prior sternotomy. No ac [place] osseous findings. IMPRESSION: 1. Negative for pulmonary embolism. 2. Redemonstrated infectious or inflamma tory nodular infiltrates in both lungs. Slight interval increase in basilar interstitial infiltrates potentially reflecting a component of edema. 3. Redemonstrated right hydropneumothora x versus empyema, similar in appearance to the prior CT. 4. Small left pleural effusion. Jessica Easton MD RAD CT (ABNORMAL) INR/PROTIME (04/20/2021 3:12 AM MEDICAL AFFAIRS SPECIALIST) athologist [facility] Protime 25.4 (H) 11.8 - 14.6 04/20/2021 [place] Seconds 3:29 AM MEDICAL AFFAIRS SPECIALIST HOSPITAL LAB INR 2.3 (H) 0.9 - 1.1 04/20/2021 [place] 3:29 AM [facility] Specimen Anatomical Collection Method / Collection Time Recei bob Time (Source) Location / Volume Laterality Blood Venipuncture / 04/20/2021 3:12 04/20/2021 3:16 Unknown AM MEDICAL AFFAIRS SPECIALIST AM MEDICAL AFFAIRS SPECIALIST Narrative [facility] - 04/20/2021 3:29 AM MEDICAL AFFAIRS SPECIALIST Therapeutic range determined by protocol established by anticoagulation provider. Jessica Easton MD LAB_1 Performing Organization Address [facility]/ZIP [facility] LAB [address] [place] [address] [phone] (ABNORMAL) B-Type Natriuretic Peptide (04/20/2021 3:11 AM MEDICAL AFFAIRS SPECIALIST) [facility] B Type Natr. 477 (H) <=99 pg/mL 04/20/2021 [place] Peptide 3:49 AM [facility] Specimen Anatomical Collection Method / Collection Time Recei bob Time (Source) Location / Volume Laterality Blood Venipuncture / 04/20/2021 3:11 04/20/2021 3:16 Unknown AM MEDICAL AFFAIRS SPECIALIST AM MEDICAL AFFAIRS SPECIALIST Jessica Easton MD LAB_1 Performing Organization Address City/[facility]/ZIP [facility] e Number [facility] [address] [place] [phone] (ABNORMAL) Troponin I (04/20/2021 3:09 AM MEDICAL AFFAIRS SPECIALIST) [facility] 0.07 (H) 0.00 - 0.03 04/20/2021 [place] ng/mL 3:58 AM MEDICAL AFFAIRS SPECIALIST HOSPITAL LAB Specimen Anatomical Collection Method / Collection Time Recei bob Time (Source) Location / Volume Laterality Blood Venipuncture / 04/20/2021 3:09 04/20/2021 3:16 Unknown AM MEDICAL AFFAIRS SPECIALIST AM MEDICAL AFFAIRS SPECIALIST Jessica Easton MD LAB_1 Performing Organization Address City/State/ZIP Code Phon e Number [facility] [address] [place] [address] [phone] (ABNORMAL) Complete Blood Count-W/Diff (04/20/2021 3:09 AM MEDICAL AFFAIRS SPECIALIST) [facility] Time Signature WBC 11.2 (H) 3.5 - 10.5 04/20/2021 [place] x10(9)/L 3:23 AM [facility] RBC 2.84 (L) 4.32 - 04/20/2021 [place] 5.72 3:23 AM [facility] x10(12)/L Hemoglobin 8.3 (L) 13.5 - 04/20/2021 [place] 17.5 g/dL 3:23 AM [facility] HCT 26.1 (L) 38.8 - 04/20/2021 [place] 50.0 % 3:23 AM [facility] MCV 91.9 80.0 - 04/20/2021 [place] 100.0 fL 3:23 AM [facility] MCH 29.2 27.6 - 04/20/2021 [place] 33.3 pg 3:23 AM [facility] MCHC 31.8 31.5 - 04/20/2021 [place] 35.2 g/dL 3:23 AM [facility] RDW 13.8 11.9 - 04/20/2021 [place] 15.5 % 3:23 AM [facility] Platelets 451 (H) 150 - 450 04/20/2021 [place] x10(9)/L 3:23 AM [facility] Immature Gran % 0.6 (H) 0.0 - 0.5 04/20/2021 [place] % 3:23 AM [facility] Automated NRBC 0 <=0 /100 04/20/2021 [place] WBC 3:23 AM [facility] Neutrophil 9.2 (H) 1.7 - 7.0 04/20/2021 [place] Absolute 10(9)/L 3:23 AM [facility] Lymphocyte 0.7 (L) 1.0 - 4.8 04/20/2021 [place] Absolute 10(9)/L 3:23 AM [facility] Monocytes 1.0 (H) 0.2 - 0.9 04/20/2021 [place] Absolute 10(9)/L 3:23 AM [facility] Eosinophil 0.2 0.0 - 0.5 04/20/2021 [place] Absolute 10(9)/L 3:23 AM [facility] Basophil 0.0 0.0 - 0.3 04/20/2021 [place] Absolute 10(9)/L 3:23 AM [facility] Specimen Anatomical Collection Method / Collection Time Recei bob Time (Source) Location / Volume Laterality Blood Venipuncture / 04/20/2021 3:09 04/20/2021 3:16 Unknown AM MEDICAL AFFAIRS SPECIALIST AM MEDICAL AFFAIRS SPECIALIST Jessica Easton MD LAB_1 Performing Organization Address City/State/ZIP Code Phon e Number [facility] [address] [place] [address] [phone] Procalcitonin (04/20/2021 3:09 AM MEDICAL AFFAIRS SPECIALIST) P athologist Signature Procalcitonin 0.10 <=0.24 04/20/2021 [place] ng/mL 3:58 AM [facility] Specimen Anatomical Collection Method / Collection Time Recei bob Time (Source) Location / Volume Laterality Blood Venipuncture / 04/20/2021 3:09 04/20/2021 3:16 Unknown AM MEDICAL AFFAIRS SPECIALIST AM MEDICAL AFFAIRS SPECIALIST Narrative [facility] - 04/20/2021 3:58 AM MEDICAL AFFAIRS SPECIALIST Differential Diagnosis of Lower Respiratory Tract Infection [...] Jessica Easton MD LAB_1 Performing Organization Address [facility] [address] [place] [address] (ABNORMAL) C-Reactive Protein (04/20/2021 3:09 AM MEDICAL AFFAIRS SPECIALIST) athologist Signature C-Reactive 13.9 (H) 0.0 - 0.7 04/20/2021 [place] Protein mg/dL 3:38 AM MEDICAL AFFAIRS SPECIALIST HOSPITAL LAB Specimen Anatomical Collection Method / Collection Time Recei bob Time (Source) Location / Volume Laterality Blood Venipuncture / 04/20/2021 3:09 04/20/2021 3:16 Unknown AM MEDICAL AFFAIRS SPECIALIST AM MEDICAL AFFAIRS SPECIALIST Jessica Easton MD LAB_1 Performing Organization Address [facility] [address] [place] [address] Lactate, Whole Blood (04/20/2021 3:09 AM MEDICAL AFFAIRS SPECIALIST) athologist Signature Lactate, Whole 0.70 0.50 - 04/20/2021 [place] Blood 2.00 3:15 AM MEDICAL AFFAIRS SPECIALIST HOSPITAL LAB mmol/L Specimen Anatomical Collection Method / Collection Time Recei bob Time (Source) Location / Volume Laterality Blood Venipuncture / 04/20/2021 3:09 04/20/2021 3:14 Unknown AM MEDICAL AFFAIRS SPECIALIST AM MEDICAL AFFAIRS SPECIALIST Narrative [facility] - 04/20/2021 3:15 AM MEDICAL AFFAIRS SPECIALIST Reference range for healthy individuals when sepsis is not suspected is 0.5-2.2 mmol/L Jessica Easton MD LAB_1 Performing Organization Address [facility] Number [facility] [address] [place] [address] (ABNORMAL) BASIC METABOLIC PANEL (04/20/2021 3:09 AM MEDICAL AFFAIRS SPECIALIST) athologist Signature Sodium 133 (L) 136 - 145 04/20/2021 [place] mmol/L 3:38 AM [facility] Potassium 3.7 3.5 - 5.1 04/20/2021 [place] mmol/L 3:38 AM [facility] Chloride 100 98 - 109 04/20/2021 [place] mmol/L 3:38 AM [facility] CO2 22 20 - 29 04/20/2021 [place] mmol/L 3:38 AM [facility] Anion Gap 11 7 - 16 04/20/2021 [place] mmol/L 3:38 AM [facility] Calcium 8.8 8.4 - 10.4 04/20/2021 [place] mg/dL 3:38 AM [facility] BUN 16 7 - 26 04/20/2021 [place] mg/dL 3:38 AM [facility] Creatinine 0.74 0.73 - 04/20/2021 [place] 1.18 mg/dL 3:38 AM [facility] GFR, Estimated >60 >60 04/20/2021 [place] mL/min/1.7 3:38 AM [facility] 3m2 Glucose 104 (H) 70 - 100 04/20/2021 [place] mg/dL 3:38 AM [facility] Comment: The given reference range is fo r the fasting state. Non-fasting reference range for glucose is 70 - 180 mg/dL. Specimen Anatomical Collection Method / Collection Time Recei bob Time (Source) Location / Volume Laterality Blood Venipuncture / 04/20/2021 3:09 04/20/2021 3:16 Unknown AM MEDICAL AFFAIRS SPECIALIST AM MEDICAL AFFAIRS SPECIALIST Jessica Easton MD LAB_1 Performing Organization Address City/[facility]/ZIP [facility] [address] [place] [address] ECG 12-Lead STAT (04/20/2021 2:47 AM MEDICAL AFFAIRS SPECIALIST) athologist Signature Ventricular Rate 101 BPM [facility] Atrial Rate 101 BPM [facility] P-R Interval 224 ms [facility]USE [facility] QRS Duration 90 ms MUSE [facility] QT 362 ms MUSE [facility] QTc 469 ms MUSE [facility] P [place] 56 degrees MUSE G[facility] R [place] 43 degrees MUSE G[facility] T [place] 48 degrees MUSE [facility] Specimen (Source) Anatomical Collection Method Collection Time Re ceived Time Location / / Volume Laterality 04/20/2021 2:47 AM MEDICAL AFFAIRS SPECIALIST Narrative [facility] - 04/20/2021 8:33 AM MEDICAL AFFAIRS SPECIALIST Sinus tachycardia with 1st degree A-V block [...] Address City/State/ZIP Code Phon e Number MUSE [facility] [address] [place] [address] documented in this encounter Visit Diagnoses Diagnosis SOB (shortness of breath) - Primary Shortness of breath Triage Assessment Note - Ashanti Ramirez RN - 04/20/2021 2:43 AM CST [facility] Emergency Department Triage Note Arrived to ED [...] diarrhea Ashanti Ramirez RN 04/20/2021, 2:47 AM CAL AFFAIRS SPECIALIST documented in this encounter Administered Medications Inactive Administered Medications - up to 3 most recent administrations Medication Order MAR Action Action Date Dose Rate Site sodium chloride 0.9% bolus 1,000 Started 04/20/2021 3:15 AM MEDICAL AFFAIRS SPECIALIST 1, 000 mL mL 1,000 mL, Intravenous, Administer over 1 Hours, ONCE, On Tue04/20/21 at 0330, For 1 dose documented in this encounter Active and Recently Administered Medications Times are shown in MEDICAL AFFAIRS SPECIALIST. Scheduled Medication Order 04/18/2021 04/19/2021 04/20/2021 sodium chloride 0.9% bolus 1,000 mL (COMPLETED) 0315 (Started - Provider: Daisy Winslow RN)0407 (Infused - Provider: Daisy Winslow RN) 1,000 mL, Intravenous, Administer over 1 Hours, ONCE, On Tue04/20/21 at 0330, For 1 dose documented in this encounter Care Teams Commercial Loan Reviewer Relationship Specialty Start Date End Date Aravind Decker MD PCP - General Family Practice 01/14/14 [address] [place] [address] documented as of this encounter
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
--- OUTSIDE RECORDS SUMMARY | 2022-03-13 17:50 | XMS_ITS | Encounter Summary ---
:1945 Author Organization [facility] Address [address] [place] [address] Care Team Providers Name Role Phone Unavailable Primary Care Provider Unavailable Encounter Details Date Type Department Care Team Description 11/28/2000 Hospital Encounter [facility]X [facility] Celestino Oliver M.D. [address] [place], [place] [address] (Wo rk) Social History Tobacco Use Types [...] or relatives? How often do you attend holiness or Patient refused 2021 mu-ism services? Do you belong to any clubs or No 08/31/2021 organizations such as holiness groups, unions, fraternal or athletic groups, or [...] months, how many places have you lived? [id number] 08/31/2021 In the last 12 months, was there a time when you did No 08/31/[address] to sleep or slept in a jail (including now)? Sex Assigned at Date Recorded Not on file documented as of this encounter Plan of Treatment Not on filedocumented as of this encounter Visit Diagnoses Not on filedocumented in this encounter
--- OUTSIDE RECORDS SUMMARY | 2022-03-13 17:50 | XMS_ITS | Clinical Summary ---
:1945 External Reference #:[id number] Author Organization [employer] [facility] [place] [address] Care Team Providers Name Role Phone Kiersten Fitch MD Primary Care Provider [phone] Allergies Active Allergy Reactions Severity Noted Date [...] Take 2 capsules 0 11/17/19 Active (VITAMIN D3) 2,000 by mouth once 12 unit capsule daily. Zinc Gluconate 100 Take 50 mg by 0 12/23/19 Active mg tab mouth once 21 daily. nystatin Apply 1 Each 0 Active (MYCOSTATIN) cream topically to affected area(s) 2 times daily if needed (rash). acetaminophen Take 500-1,000 0 A ctive (TYLENOL [...] affected 21 area(s) one time if needed. miscellaneous As directed. 1 Each 0 06/26/19 [...] fibrillation (HC) for labs/ekg in May 2022 oxyCODONE-acetamino 1 - 2 TAB ORALLY 0 03/06/20 Active phen (PERCOCET) EVERY 4-6 HOURS 22 5-325 mg per tablet NEEDED FOR PAIN ascorbic acid, Take 1 tablet by 0 04/17/20 Discontinued vitamin C, (VITAMIN mouth once 20 022 (*Med C) 1,000 mg tablet daily. c omplete/Regime n complete/L evel of care ch molly) warfarin (COUMADIN) Patient not 0 04/27/20 Discontinued 2.5 mg using this 022 (*Med tabletIndications: tablet dose at complete/Regime Persistent atrial this time. n fibrillation (HC) co mplete/Level of care ch molly) warfarin (COUMADIN) Not using at 0 04/30/20 Discontinued 3 mg this time 21 022 (*Med tabletIndications: c omplete/Regime Persistent atrial n fibrillation (HC) co mplete/Level of care ch molly) amoxicillin-clavula 0 02/21/20 Discontinued hanane 875-125 mg 22 022 (*Me d tablet (AUGMENTIN) c omplete/Regime n complete/L evel of care ch molly) amoxicillin-clavula Take 1 Tablet by 14 Tablet 0 02/28/2008/31 hanane 875-125 mg mouth two times 22 022 tablet daily with meals (AUGMENTIN)Indicati for 7 days. ons: Abdominal wall abscess Active Problems Problem Noted Date Thoracic aortic aneurysm, without rupture 06/04/2021 Thrombocytopenia, unspecified 06/04/2021 RLL pneumonia 05/19/2021 Pneumonia 04/22/2021 Adjustment disorder with anxious mood 04/16/2021 Benign paroxysmal positional vertigo 04/16/2021 History of COVID-19 (01/2020) 03/30/2021 S/P ascending aortic aneurysm repair 03/27/2021 Overview: Ascending aorta. Vascutek Terumo. Gelwea ve Gelatin Impregnatned Woven Vascular Prosthesis. Size: 34 mm straight. REF: [id number]. LOT: [id number]. SN: [id number]. EXP: 08/30/2023. Implanted by Dr. Saud Carter [...] disc without mye lopathy Overview: W/C DOI 05-23- Chest wall pain following surgery Anxiety and [...] Encounters Date Type Specialty Care Team Description 03/13/2022 Nurse Triage Kiersten Fitch Chest Pain ( With some MD Kelsey difficulty michael thing and slow pulse ) 03/11/2022 Office Visit Kiersten Fitch Follow Up (H deirdre and MD Kelsey surgical/Form/W ould like an INR as he has been off warfar in for a while) 03/11/2022 Anticoagulation 1, [place] [facility] Anticoagulat ion (warfarin) Clinic 03/11/2022 Telephone Kiersten Fitch FYI-Home car e (Home MD Kelsey care for wound) 03/11/2022 Telephone Kiersten Fitch Wound Care ( Dressing MD Kelsey wounds nurse) 03/11/2022 Travel 03/09/2022 Anesthesia Event Priti Nair MD 03/09/2022 Surgery Rudolph Reyna REMOVAL EPICAR DIAL Avelino Ibarra MD PACEMAKER CE D W/ABCESS DRAINAGE 03/09/2022 - Hospital Encounter Saud Carter 03/10/2022 MARIBELL Griffiths 03/09/2022 Kiersten Valdez MD 03/08/2022 Office Visit Opal Ybarra [facility] Vis it 03/08/2022 Travel 03/05/2022 Preop Visit Priti Carias Preoperative Exam RALPH Jones (Removal epicar dial pacemaker lead with abscess drainag e on 03/[address] Carter ) 03/05/2022 Travel 03/05/2022 Nurse Kiersten Nguyen Abdominal Pa in MD Kelsey 03/03/2022 Phone Office Visit Bennett Yari Phone [facility] (Pre-op [facility]) 03/01/2022 Office Visit Saud Carter (Office visit- MARIBE[facility] Griffiths 10AM - CLINIC - Evaluate epicar dial lead wound site //PCP- Kiersten Fitch MD) 03/01/2022 Travel 02/26/2022 Office Visit Opal Ybarra [facility] Vis it; Trmt Plan 02/26/2022 Nurse Kiersten Nguyen Questions MD Kelsey 02/25/2022 Office Visit Ophelia Urias Abdominal Pain (Patient RALPH Hernandez was seen in ED on Tuesday [...] scans attac hed> 02/19/2022 Travel 02/19/2022 Nurse Triage Kiersten Fitch Abdominal Pa in MD Kelsey 02/06/2022 Anticoagulation [...] .) 02/04/2022 Travel 02/02/2022 Telephone Amy Hickman, boot and saddle repair person Management (Tikos[employer]/) 01/22/2022 Office Visit Jessica Clark, [facility], 01/22/2022 Office Visit Jessica Clark, Trmt Plan [facility], 01/22/2022 Travel 12/31/2021 Orders Only Lab, [place] [...] Pressu re MD Kelsey 12/14/2021 Patient Outreach Formerly [facility] (Care Guide Community Resource Naviga ti/) from Last 3 Months Immunizations Name Administration Dates Next Due COVID-19 vaccine ([employer] 06/24/2020 30mcg/0.3mL) DEANN BARR Influenza RIV4 (Age 18+ Years) 01/24/2020 PRESERV [...] in contact with No / Unsu re 03/11/2022 9:04 AM DYNAMIC ETCHING PROCESSOR someone who was confirmed or suspected to have Coronavirus/COVID-19? Obstetrics History Last Filed Vital Signs Vital Sign Reading Time Taken Comments Blood Pressure 91/55 03/11/2022 9:16 AM Feeling light headed DYNAMIC ETCHING PROCESSOR Pulse 79 03/11/2022 9:16 AM DYNAMIC ETCHING PROCESSOR Temperature 36.7 ??C (98 ??F) 03/10/2022 8:27 AM DYNAMIC ETCHING PROCESSOR Respiratory Rate 16 03/10/2022 8:27 AM DYNAMIC ETCHING PROCESSOR Oxygen Saturation 100% 03/11/2022 9:16 AM DYNAMIC ETCHING PROCESSOR Inhaled Oxygen - - Concentration Weight 77.3 kg (170 lb 6.4 03/11/2022 9:16 AM oz) DYNAMIC ETCHING PROCESSOR Height 182.9 cm (6') 03/09/2022 12:12 PM DYNAMIC ETCHING PROCESSOR Body Mass Index 23.11 03/09/2022 12:12 PM DYNAMIC ETCHING PROCESSOR Plan of Treatment Upcoming Encounters Date Type Specialty Care Team Description 03/18/2022 Orders Only Lab, [place] 03/19/2022 Office Visit Jesscia Clark [facility] [address] [place], [place] [address] (Wo rk) 03/29/2022 Office Visit Kiersten Fitch MD [address] [place], [place] [address] (Wo rk) 03/31/2022 Office Visit Katheryn, [facility] Maintenance Due Date Last Done Comments Zoster (shingles) series for age 0901/13/1996 50+ (1 of 2) COVID-19 vaccine series (2 - 07/15/2020 06/24/2020 Pfizer series) Influenza for age 65+ 12/31/2021 01/24/2020, 02/26/2019, 02/16/2018, Additional history exists Medicare Wellness for age 65+ 06/26/2022 06/26/2021, 2017 Depression screening for age 12+ 03/01/2023 03/01/2022, , 02/26/2022, Additional history exists BMI (ht and wt on same day) for 03/05/2023 03/05/2022, 02/01, age 18+ 09/10/2021, Additional history exists Tetanus booster 06/16/2028 06/16/2018, 01/30/2005, 05/06/2004 Pneumococcal series for age 65+ Completed 01/20/2015, 1208/2012, 06/02/2012 Hepatitis C screening for age Completed 08/04/2016 18-79 Tdap Completed 06/16/2018 Medical Devices Implanted Type Area Time Study Technologist Device Shelf Model / Identifier Expiration Serial / Lot Date Graft Vascular Gelweave 34mm X 30cm N/A: [employer] 08/30/2023 [id number] / Implanted: Qty: 1 on 03/27/2021 by Saud Carter MBBS at [facility] [employer] [facility] 20 [id number] / [id number] Procedures Procedure Name Priority Date/Time Associated Diagnosis Comme nts CBC WITH AUTO Routine 03/11/2022 10:28 Atypical atrial Results for this DIFFERENTIAL AM DYNAMIC ETCHING PROCESSOR flutter (HC) procedure are i n the results section. BASIC METABOLIC PANEL Routine 03/11/2022 10:28 Atypical atrial Results for this AM DYNAMIC ETCHING PROCESSOR flutter (HC) procedure are in Abdominal wall the results abscess section. CBC WITH AUTO Routine 03/11/2022 10:28 Atypical atrial Results for this DIFFERENTIAL AM DYNAMIC ETCHING PROCESSOR flutter (HC) procedure are i n the results section. PROTIME-INR STAT 03/11/2022 10:28 Persistent atrial Result s for this AM DYNAMIC ETCHING PROCESSOR fibrillation (HC ) procedure are in Anticoagulation the results monitoring, INR section. range 2-3 Atypical atrial flutter (HC) EKG 12 LEAD Routine 03/10/2022 8:29 AM Results f or this DYNAMIC ETCHING PROCESSOR procedure are i n the results section. HEMOGLOBIN Early AM 03/10/2022 8:25 AM Results f or this DYNAMIC ETCHING PROCESSOR procedure are i n the results section. BASIC METABOLIC PANEL Early AM 03/10/2022 8:25 AM Results for this DYNAMIC ETCHING PROCESSOR procedure are i n the results section. PROTIME-INR Early AM 03/10/2022 8:25 AM Results f or this DYNAMIC ETCHING PROCESSOR procedure are i n the results section. SCAN-CARDIAC STRIP 03/10/2022 1:35 AM DYNAMIC ETCHING PROCESSOR EKG 12 LEAD STAT 03/09/2022 10:15 Results for this PM DYNAMIC ETCHING PROCESSOR procedure are i n the results section. ENDOTRACHEAL TUBE Routine 03/09/2022 2:58 PM Resu lts for this DYNAMIC ETCHING PROCESSOR procedure are i n the results section. ENDOTRACHEAL TUBE Routine 03/09/2022 2:58 PM Resu lts for this DYNAMIC ETCHING PROCESSOR procedure are i n the results section. ENDOTRACHEAL TUBE Routine 03/09/2022 2:58 PM Resu lts for this DYNAMIC ETCHING PROCESSOR procedure are i n the results section. REMOVAL PACEMAKER 03/09/2022 2:19 PM pacing lead absce ss LEAD DYNAMIC ETCHING PROCESSOR Case Notes REMOVAL EPICARDIAL PACEMAKER LEAD W/ABCESS DRAINAGE TYPE & SCREEN STAT 03/09/2022 12:18 Results fo r this PM DYNAMIC ETCHING PROCESSOR procedure are i n the results section. SCAN-CARDIAC STRIP 03/09/2022 12:00 Resul ts for this AM DYNAMIC ETCHING PROCESSOR procedure are i n the results section. COVID 19 Routine 03/05/2022 3:25 PM Encounter for Results for this CDT preprocedure procedure are i n screening laboratory the res ults testing for COVID-19 section . COVID 19 COLLECTION Routine 03/05/2022 3:25 PM Encounter for R esults for this CDT preprocedure procedure are i n screening laboratory the res ults testing for COVID-19 section . SODIUM,ISTAT Routine 02/25/2022 9:42 AM Abdominal wall Results for this CDT abscess procedure are i n the results section. POTASSIUM,ISTAT Routine 02/25/2022 9:42 AM Abdominal wall Resu lts for this CDT abscess procedure are i n the results section. CREATININE,ISTAT Routine 02/25/2022 9:38 AM Abdominal wall Res ults for this CDT abscess procedure are i n the results section. CBC WITH AUTO Routine 02/25/2022 9:33 AM Abdominal wall Result s for this DIFFERENTIAL CDT abscess procedure are i n the results section. CBC WITH AUTO Routine 02/25/2022 9:33 AM Abdominal wall Result s for this DIFFERENTIAL CDT abscess procedure are i n the results section. SCAN-CT INTERPRETATION 02/20/2022 12:00 AM CDT SCAN-ULTRASOUND REPORT 02/20/2022 12:00 R esults for this AM CDT procedure are i n the results section. EKG 12 LEAD Routine 02/05/2022 7:44 AM Persistent atrial CDT fibrillation (HC) POTASSIUM Routine 02/04/2022 8:42 AM Persistent atrial Resu lts for this CDT fibrillation (HC) procedure are in the results section. CREATININE Routine 02/04/2022 8:42 AM Persistent atrial Resu lts for this CDT fibrillation (HC) procedure are in the results section. BUN Routine 02/04/2022 8:42 AM Persistent atrial Resu lts for this CDT fibrillation (HC) procedure are in the results section. PROTIME-INR STAT 02/04/2022 8:42 AM Persistent atrial Resu lts for this CDT fibrillation (HC ) procedure are in Anticoagulation the results monitoring, INR section. range 2-3 Atypical atrial flutter (HC) EKG 12 LEAD Routine 12/31/2021 2:00 PM Palpitations CDT TX READING EKG - NO Routine 12/31/2021 1:59 PM Palpitations CHARGE, COMP ONLY CDT PROTIME-INR STAT 12/31/2021 10:23 Persistent atrial [...] results section. from Last 3 Months Results CBC WITH AUTO DIFFERENTIAL (03/11/2022 10:28 AM DYNAMIC ETCHING PROCESSOR)Only the most recent of3 resultswithin the time period is included. athologist Signature WHITE BLOOD 4.8 4.5 - 11.0 03/11/2022 [facility] COUNT thou/cu mm 10:41 AM [facility] RED BLOOD COUNT 4.42 4.30 - 03/11/2022 [facility] 5.90 10:41 AM [facility] mil/cu mm [facility] HEMOGLOBIN 13.7 13.5 - 03/11/2022 [facility] 17.5 g/dL 10:41 AM [facility] HEMATOCRIT 41.2 37.0 - 03/11/2022 [facility] 53.0 % 10:41 AM [facility] MCV 93 80 - 100 03/11/2022 [facility] fL 10:41 AM [facility] MCH 31.0 26.0 - 03/11/2022 [facility] 34.0 pg 10:41 AM [facility] MCHC 33.3 32.0 - 03/11/2022 [facility] 36.0 g/dL 10:41 AM [facility] RDW 13.5 11.5 - 03/11/2022 [facility] 15.5 % 10:41 AM [facility] PLATELET COUNT 193 140 - 440 03/11/2022 [facility] thou/cu mm 10:41 AM [facility] MPV 9.2 6.5 - 11.0 03/11/2022 [facility] fL 10:41 AM [facility] % NEUT 64.6 % 03/11/2022 [facility] 10:41 AM [facility] % LYMPH 23.7 % 03/11/2022 [facility] 10:41 AM [facility] % MONO 8.8 % 03/11/2022 [facility] 10:41 AM [facility] % EOS 2.3 % 03/11/2022 [facility] 10:41 AM [facility] % BASO 0.6 % 03/11/2022 [facility] 10:41 AM [facility] ABSOLUTE 3.1 1.7 - 7.0 03/11/2022 [facility] NEUTROPHILS thou/cu mm 10:41 AM [facility] ABSOLUTE 1.1 0.9 - 2.9 03/11/2022 [facility] LYMPHOCYTES thou/cu mm 10:41 AM [facility] ABSOLUTE 0.4 <0.9 03/11/2022 [facility] MONOCYTES thou/cu mm 10:41 AM [facility] ABSOLUTE 0.1 <0.5 03/11/2022 [facility] EOSINOPHILS thou/cu mm 10:41 AM [facility] ABSOLUTE 0.0 <0.3 03/11/2022 [facility] BASOPHILS thou/cu mm 10:41 AM [facility] Specimen Anatomical Collection Method / Collection Time Recei bob Time (Source) Location / Volume Laterality Blood BLOOD SPECIMEN / Venipuncture / 03/11/2022 10:28 03/11 Unknown Unknown AM DYNAMIC ETCHING PROCESSOR 10:29 AM DYNAMIC ETCHING PROCESSOR Kiersten Fitch MD HEMATOLOGY Performing Organization Address City/State/ZIP Code Phon e Number [facility] [address] [place] [address] (ABNORMAL) PROTIME-INR (03/11/2022 10:28 AM DYNAMIC ETCHING PROCESSOR)Only the most recent of4 results within the time period is included. P athologist Signature INR 1.3 (H) <1.3 03/11/2022 [facility] 3:27 PM DYNAMIC ETCHING PROCESSOR LABORATORY-[facility] LABORATORY PROTIME 15.9 (H) 12.0 - 13.8 03/11/2022 [facility] sec 3:27 PM DYNAMIC ETCHING PROCESSOR LABORATORY-[facility] LABOR[facility]ORY Specimen Anatomical Collection Method / Collection Time Recei bob Time (Source) Location / Volume Laterality Blood BLOOD SPECIMEN / Venipuncture / 03/11/2022 10:28 03/11 Unknown Unknown AM DYNAMIC ETCHING PROCESSOR 10:29 AM DYNAMIC ETCHING PROCESSOR Narrative [facility] LABORATORY-CENTRAL LABORAT ORY - 03/11/2022 3:27 PM DYNAMIC ETCHING PROCESSOR ?Therapeutic Range 2.0-3.0 for most anticoagulated patients [...] Kiersten Fitch MD HEMATOLOGY Performing Organization Address City/State/ZIP Code Phon e Number [email or web address] [address] [place] [id number] [facility] LABORATORY (ABNORMAL) BASIC METABOLIC PANEL (03/11/2022 10:28 AM DYNAMIC ETCHING PROCESSOR)Only the most recent of3 resultswithin the time period is included. P athologist Signature SODIUM 139 135 - 145 03/12/2022 [email or web address] mmol/L 10:18 PM DYNAMIC ETCHING PROCESSOR LABORATORY-[facility] POTASSIUM 4.3 3.5 - 5.0 03/12/2022 [facility] (P) mmol/L 10:18 PM DYNAMIC ETCHING PROCESSOR LABORATORY-[facility] CHLORIDE 105 98 - 110 03/12/2022 [facility] ([facility]) mmol/L 10:18 PM DYNAMIC ETCHING PROCESSOR LABORATORY-[facility] CO2,TOTAL 32 (H) 21 - 31 03/12/2022 [email or web address] mmol/L 10:18 PM DYNAMIC ETCHING PROCESSOR LABORATORY-[facility] ANION GAP 2 (L) 5 - 18 03/12/2022 [email or web address] 10:18 PM DYNAMIC ETCHING PROCESSOR LABORATORY-[facility] TR[facility]ORY GLUCOSE 69 65 - 100 03/12/2022 [email or web address] mg/dL 10:18 PM DYNAMIC ETCHING PROCESSOR LABORATORY-[facility] TR[facility] LAB[facility]ORY CALCIUM 8.9 8.5 - 10.5 03/12/2022 [email or web address] mg/dL 10:18 PM DYNAMIC ETCHING PROCESSOR LABORATORY-[facility] TR[facility] LAB[facility]ORY BUN 17 8 - 25 03/12/2022 [facility] (P) mg/dL 10:18 PM DYNAMIC ETCHING PROCESSOR LABORATORY-[facility]ORY CREATININE 0.94 0.72 - 03/12/2022 [facility] (P) 1.25 mg/dL 10:18 PM DYNAMIC ETCHING PROCESSOR LABORATORY-[facility]ORY BUN/CREAT RATIO 18 10 - 20 03/12/2022 [facility] (P) 10:18 PM DYNAMIC ETCHING PROCESSOR LABORATORY-[facility] TR[facility] LABORATORY eGFR 84 (L) >90 03/12/2022 [facility] (P) mL/min/1.7 10:18 PM DYNAMIC ETCHING PROCESSOR LABORATORY-[facility] 3m2 TRAL LABORATORY Comment: As of [...] Laterality Blood BLOOD SPECIMEN / Venipuncture / 03/11/2022 10:28 03/11 Unknown Unknown AM DYNAMIC ETCHING PROCESSOR 10:29 AM DYNAMIC ETCHING PROCESSOR Kiersten Fitch MD CHEMISTRY Performing Organization Address City/[facility]/ZIP Code Phon e Number [email or web address] [address] [facility] [place] [address] LABORATORY-CENTRAL 2000 LABORATORY EKG 12 LEAD (03/10/2022 8:29 AM DYNAMIC ETCHING PROCESSOR)Only the most recent of4 resultswithin the time period is included. Component Value Ref Range Test Analysis Performed Pathologis t Method Time At Signature Interpretation Sinus rhythm with 1st degree A-V block BEYOND NOW Left axis deviation Abnormal ECG When compared with ECG of 09-MAR-2022 22:15, No significant change was found Ventricular Rate 79 BPM BEYOND NOW Atrial Rate 79 BPM BEYOND NOW P-R Interval 222 ms BEYOND NOW QRS Duration 86 ms BEYOND NOW QT 402 ms BEYOND NOW QTc 460 ms BEYOND NOW P Apex 79 degrees BEYOND NOW R Apex -40 degrees BEYOND NOW T Apex 39 degrees BEYOND NOW Specimen Anatomical Collection Method Collection Time Receive d Time (Source) Location / / Volume Laterality 03/10/2022 8:29 AM 6:26 DYNAMIC ETCHING PROCESSOR PM DYNAMIC ETCHING PROCESSOR Saud ESCAMILLABS EKG ORD Performing Organization Address City/State/ZIP Code Phon e Number BEYOND NOW [place], [place] (ABNORMAL) HEMOGLOBIN (03/10/2022 8:25 AM DYNAMIC ETCHING PROCESSOR) P athologist Signature HEMOGLOBIN 12.7 (L) 13.5 - 03/10/2022 [email or web address] 17.5 g/dL 9:43 AM DYNAMIC ETCHING PROCESSOR LABORATORY-[facility] LABORATORY MCV 93 80 - 100 03/10/2022 [email or web address] fL 9:43 AM DYNAMIC ETCHING PROCESSOR LABORATORY-CENT RAL LABORATORY Specimen Anatomical Collection Method Collection Time Receive d Time (Source) Location / / Volume Laterality Blood BLOOD SPECIMEN / Butterfly / 03/10/2022 8:25 AM 03/10 9:21 Unknown Unknown DYNAMIC ETCHING PROCESSOR AM DYNAMIC ETCHING PROCESSOR Rob ROSAS HEMATOLOGY Performing Organization Address City/State/ZIP Code Phon e Number [facility] ([facility]) [address] [place] [address] LABORATORY-[facility] 2000 LABORATORY SCAN-CARDIAC STRIP (03/10/2022 1:35 AM DYNAMIC ETCHING PROCESSOR) Narrative This result has an attachment that is no t available. Scanner OTHER HCHG TUBE PR1, HCHG STYLET PR1, HCHG MOUTHPIECE PR1 (03/09/2022 2:58 PM DYNAMIC ETCHING PROCESSOR) Narrative Richie Burns CRNA - 03/09/2022 2:58 PM DYNAMIC ETCHING PROCESSOR Richie Burns CRNA ? 03/09/2022 ??2:58 PM Procedure: ETT Patient location during procedure: OR ETT Properties Mask Ventilation: easy Final Technique: direct laryngoscopy Type: straight Location: oral Cuffed: yes Tube Size: 7.5 mm Stylet: yes Laryngoscope Blade: Mac Blade Size: 4 Cormack-Lehane Grade View: 1 Insertion Attempts: 1 Placement Verification: auscultation, en d tidal CO2 and symmetrical chest wall movement Assessment: pharynx clear, atraumatic an d dentition unchanged Secured at: 22 Measured From: lips Tooth guard used and removed: yes Difficulty: 0 (not difficult) Electronically signed by Richie Burns C RNA ? Priti Nair MD ANESTHESIA PX NOTE ORDERABLE S TYPE & SCREEN (03/09/2022 12:18 PM DYNAMIC ETCHING PROCESSOR) [facility] gist Method Time Signature ABORH A Rh 03/09/2022 [facility] Positive 1:22 PM DYNAMIC ETCHING PROCESSOR LAB-CENTRAL LAB BLOOD BANK ANTIBODY Negative Negative 03/09/2022 [email or web address] SCREEN 1:22 PM DYNAMIC ETCHING PROCESSOR LAB-CENTRAL LAB BLOOD BANK SPECIMEN 03/12/22 03/09/2022 [email or web address] EXPIRATION 23:59 1:22 PM DYNAMIC ETCHING PROCESSOR LAB-CENTRAL DATE/TIME LAB BLOOD BANK Specimen Anatomical Collection Method / Collection Time Recei bob Time (Source) Location / Volume Laterality Blood BLOOD SPECIMEN / Venipuncture / 03/09/2022 12:18 03/09 Unknown Unknown PM DYNAMIC ETCHING PROCESSOR 12:35 PM DYNAMIC ETCHING PROCESSOR Gilda ROSAS BLOOD BANK Performing Organization Address City/State/ZIP Code Phon e Number [email or web address] LAB-CENTRAL LAB [address] [place] [address] BLOOD BANK SCAN-CARDIAC STRIP (03/09/2022 12:00 AM DYNAMIC ETCHING PROCESSOR) Narrative 03/09/2022 12:00 AM DYNAMIC ETCHING PROCESSOR This result has an attachment that is no t available. Ordered by an unspecified provider. Other Clinical Staff OTHER COVID 19 (03/05/2022 3:25 PM CDT) Analysis Performed At Patho logist Time Signature COVID 19 Negative Negative 03/06/2022 [email or web address] 3:01 PM CDT LABORATORY-[facility] Specimen Anatomical Location / Collection Method Collection Rakesh e Received Time (Source) Laterality / Volume Other SPECIMEN FROM Non-Blood / 03/05/2022 3:25 03/06/2022 6:16 NASOPHARYNGEAL Unknown PM CDT AM CDT STRUCTURE / Unknown Narrative [email or web address] LABORATORY-CENTRAL LABORAT ORY - 03/06/2022 3:01 PM CDT All PCR tests are subject to false negative result due to variability in viral load and collection te chnique. A negative result does not rule out a SARS-CoV-2 infection. Clinical correlation required. This test has been authorized by FDA und er an Emergency Use Authorization (EUA). This test is only authorized for the duration of time the declaration that circumstances exist justifying the authorizati on of the emergency use of in vitro diag nostic tests for detection of SARS-CoV-2 virus and/or diagnosis of COVID-19 infection under section 564(b)(1) of the Act, 21 U.S.C. 360bbb-3(b) (1), unless the authorization is terminated or revoked sooner. Priti ROSAS MICROBIOLOGY Performing Organization Address City/[facility] Code Phon e Number [facility] ([facility]) [address] [place] [address] [place] [address] LABORATORY-CENTRAL 2000 LABORATORY COVID 19 COLLECTION (03/05/2022 3:25 PM CDT) [facility] Method Time Signature TESTING [facility] 03/06/2022 [facility] LABORATORY Laboratory 6:16 AM CDT LABORATORY-CE NTRAL LABORATORY Comment: Specimen submitted to [facility] for testing. Specimen Anatomical Location / Collection Method Collection Rakesh e Received Time (Source) Laterality / Volume Other SPECIMEN FROM Non-Blood / 03/05/2022 3:25 03/05/2022 4:06 NASOPHARYNGEAL Unknown PM CDT PM CDT STRUCTURE / Unknown Priti ROSAS SEND OUTS Performing Organization Address City/[facility] Phon e Number [facility] [employer] (P) [address] [place] [address] [place] [address] LABORATORY-CENTRAL 2000 LABORATORY SODIUM,ISTAT (02/25/2022 9:42 AM CDT) P athologist Signature SODIUM, POCT [phone] 02/25/2022 [facility] mmol/L 9:46 AM CDT [facility] Specimen Anatomical Collection Method Collection Time Receive d Time (Source) Location / / Volume Laterality Blood BLOOD SPECIMEN / 02/25/2022 9:42 AM 02/25 9:46 Unknown CDT AM CDT Ophelia ROSAS LABORATORY Performing Organization Address City/[facility] Phon e Number [facility] [address] [place] [address] POTASSIUM,ISTAT (02/25/2022 9:42 AM CDT) athologist Signature POTASSIUM, 4.7 3.5 - 5.0 02/25/2022 [facility] POCT mmol/L 9:46 AM CDT [facility] Specimen Anatomical Collection Method Collection Time Receive d Time (Source) Location / / Volume Laterality Blood BLOOD SPECIMEN / 02/25/2022 9:42 AM 02/25 9:46 Unknown CDT AM CDT Ophelia ROSAS CHEMISTRY Performing Organization Address [facility] Phon e Number [facility] [address] [place] [address] (ABNORMAL) CREATININE,ISTAT (02/25/2022 9:38 AM CDT) athologist Signature CREATININE, 1.00 0.57 - 02/25/2022 [facility] POCT 1.11 mg/dL 9:46 AM CDT [facility] Comment: Caution: Patients taking Hydrox yurea have falsely increased iStat Creatinine results. Verify creatinine results order ing a Creatinine (69147.2) eGFR 78 (L) >90 mL/min/1.73m2 02/25/2022 9:46 AM CDT [facility] Comment: As of 2021, eGFR is [...] CDT Ophelia ROSAS CHEMISTRY Performing Organization Address City/[facility] Phon e Number [facility] [address] [place] [address] SCAN-ULTRASOUND REPORT (02/20/2022 12:00 AM CDT) Narrative This result has an attachment that is no t available. Scanner OTHER SCAN-CT INTERPRETATION (02/20/2022 12:00 AM CDT) Narrative This result has an attachment that is no t available. Scanner OTHER BUN (02/04/2022 8:42 AM CDT) athologist Signature BUN 21 8 - 25 02/05/2022 [facility] mg/dL 8:48 AM CDT LABORATORY-CENTR AL LABORATORY Specimen Anatomical Collection Method / Collection Time Recei bob Time (Source) Location / Volume Laterality Blood BLOOD SPECIMEN / Venipuncture / 02/04/2022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
--- OUTSIDE RECORDS SUMMARY | 2022-03-13 17:50 | XMS_ITS | Clinical Summary ---
:1945 Author Organization [employer] Address [address] [place] [address] Care Team Providers Name Role Phone Aravind [...] for each transition of care or referral. [employer] Allergies Active Allergy Reactions Severity Noted Date [...] Comments Blood Pressure 110/57 04/20/2021 5:22 AM AGRICULTURAL EQUIPMENT TEST ENGINEER Pulse 96 04/20/2021 5:22 AM AGRICULTURAL EQUIPMENT TEST ENGINEER Temperature 36.9 ??C (98.5 ??F) 04/20/2021 2:42 AM AGRICULTURAL EQUIPMENT TEST ENGINEER Respiratory Rate 24 04/20/2021 5:22 AM AGRICULTURAL EQUIPMENT TEST ENGINEER Oxygen Saturation 96% 04/20/2021 5:22 AM AGRICULTURAL EQUIPMENT TEST ENGINEER Inhaled Oxygen Concentration - - Weight 73.5 kg (162 lb) 04/20/2021 2:42 AM AGRICULTURAL EQUIPMENT TEST ENGINEER Height 182.9 cm (6') 04/20/2021 2:42 AM AGRICULTURAL EQUIPMENT TEST ENGINEER Body Mass Index 21.97 04/20/2021 2:42 AM AGRICULTURAL EQUIPMENT TEST ENGINEER Plan of Treatment Health Maintenance Due Date [...] this topic Medical Devices Implanted Type Area Web Site Designer Device Shelf Model / Identifier Expiration Serial / Lot Date Baseplt Tib Metl Gensis Rt [id number] - [id number] DEVICE Right: [employer] h [employer] Nephew 04/30/2023 [id number] / Implanted: Qty: 1 on 01/15/2014 by Vini Duffy MD at [facility] / [id number] Insurance Payer Benefit Plan / Subscriber ID Effective Dates Phone Addre ss Type Group MEDICARE MEDICARE [id number] 2010-Abner [phone] ATTN CL AIMS Medicare t 0 [address] [place] [address] MEDICA MEDICA [place] [id number] 2021-Dez Huang [facility] ASSISTED nt PLUS [employer] Personal/Family Self 1945 [address] [place] [address] [employer] Personal/Family Self 1945 [address] [place] [address] [employer] Personal/Family Self 1945 [address]) [address] [place] [address] Advance Directives Latest Code Status on File Code Status Date Activated Date Inactivated Comments Full Code 01/15/2014 4:23 PM 01/17/2014 3:47 PM Code Status History Code Status Date Activated Date Inactivated Comments Full Code 01/15/2014 11:27 AM 01/15/2014 4:23 PM Care Teams Concrete Crusher Loader Operator Relationship Specialty Start Date End Date Aravind Decker MD PCP - General Family Practice 01/14/[address] [place] [address] [place] [address]
--- OUTSIDE RECORDS SUMMARY | 2022-03-13 17:50 | XMS_ITS | Encounter Summary ---
:1945 Author Organization [facility] Address [address] [place] [address] Care Team Providers Name Role Phone Aravind Decker MD Primary Care Provider Encounter Details Date Type Department Care Team Description 04/20/2021 Orders Only [facility] Emergency Dool Jessica garcia MD Department [address] [place] [id number] [place] [address] [id number] [phone] Social History Tobacco Use Types Packs/Day Years [...] on filedocumented in this encounter Care Teams Hose Tester Relationship Specialty Start Date End Date Aravind Decker MD PCP - General Family Practice 01/14/[address] [place] [address] documented as of this encounter
--- OUTSIDE RECORDS SUMMARY | 2022-03-13 17:51 | XMS_ITS | Encounter Summary ---
:1945 Author Organization [facility] Address [address] [place] [address] Care Team Providers Name Role Phone Unavailable Primary Care Provider Unavailable Encounter Details Date Type Department Care Team Description 12/30/2003 PN Conversion Only DIRECTOR OF PROGRAM MANAGEMENT [address] [place] [address] Social History Tobacco Use Types Packs/Day Years Used Date Smoking Tobacco: Never Assessed Sex Assigned at Date Recorded Not on file documented as of this encounter Plan of Treatment Not on filedocumented as of this encounter Visit Diagnoses Not on filedocumented in this encounter
--- OUTSIDE RECORDS SUMMARY | 2022-03-13 17:51 | XMS_ITS | Encounter Summary ---
:1945 Author Organization [facility] Address [address] [place] [address] Care Team Providers Name Role Phone Aravind Decker MD Primary Care Provider Encounter Details Date Type Department Care Team Description 01/15/2014 Consent for LV Surg IP Svc [facility] [place] Procedure/Treatme [address] [facility], [place] [address] Provider [phone] Social History Tobacco Use Types Packs/Day Years [...] on filedocumented in this encounter Care Teams Crop Duster Relationship Specialty Start Date End Date Aravind Decker MD PCP - General Family Practice 01/14/[address] [place] [place] [address] documented as of this encounter
--- OUTSIDE RECORDS SUMMARY | 2022-03-13 17:51 | XMS_ITS | Encounter Summary ---
:1945 Author Organization [employer] Address [address] [place] [address] Care Team Providers Name Role Phone Unavailable Primary Care Provider Unavailable Encounter Details Date Type Department Care Team Description 11/07/1998 PN Conversion Only [facility] [place] [address] [address] [place] [address] [address] [phone] [place], [place] [address] (Wo rk) Social History Tobacco Use Types [...] 1157 Note Time: 11/07/98 0001 Status: Signed Talent Acquisition Program Manager: Hemal Raymundo MD (Physician) IMPRESSION: Orchialgia. SUBJECTIVE: Consult from Dr. Decker in [place]. This is a 53-year-old gentleman with a [...] issues worked on. CC: Dr. Brianne Lundy S:[id number] C: DOCUMENT: [id number] documented in this encounter Plan of Treatment Not on filedocumented as of this encounter Procedures Procedure Name Priority Date/Time Associated Comments Diagnosis URINALYSIS COMPLETE Routine 11/07/1998 1:49 PM Re sults for this HOLD CULTURE CDT procedure are i n the results section. documented in this encounter Results Urinalysis Complete Hold Culture (11/07/1998 1:49 PM CDT) [facility] Method Time Signature U Specific 1.025 1.005 - 25 HP CONVERSION [place] pH Urine 5.5 4.5 - 7.5 HP [...]
--- OUTSIDE RECORDS SUMMARY | 2022-03-13 17:51 | XMS_ITS | Encounter Summary ---
:1945 Author Organization [facility] Address [address] [place] [address] Care Team Providers Name Role Phone Aravind Decker MD Primary Care Provider Reason for Visit Reason Onset Date Comments [facility] Encounter Details Date Type Department Care Team Description 01/19/2014 Telephone Med Surg Mira Pacheco, RN FOLLOW-UP,[address] [address] [place] [address] [phone] Social History Tobacco Use Types Packs/Day Years [...] on filedocumented in this encounter Care Teams Utility Engineer Relationship Specialty Start Date End Date Aravind Decker MD PCP - General Family Practice 01/14/[address] [place] [address] documented as of this encounter
--- OUTSIDE RECORDS SUMMARY | 2022-03-13 17:51 | XMS_ITS | Encounter Summary ---
:1945 Author Organization [facility] Address [address] [place] [address] Care Team Providers Name Role Phone Aravind Decker MD Primary Care Provider Reason for Visit Reason Comments FEVER SOB (SHORTNESS OF BREATH) Encounter Details Date Type Department Care Team Description 04/14/2021 Nurse Triage Careline Unassigned, FEVER; SOB (SHORTNESS [address] Provider OF BREATH) [place], [place] [address] [place] [address] [place] [address] Social History Tobacco Use Types Packs/Day Years [...] PM Pt is transferred from the CareLine Potato Spotter on speaker phone with his friend Lynette. [...] Lynette states she called the nurse at [facility] and was told give it a little more time, but maybe he may need to go to the ER - States at 10pm his temp is 99.7 and she is wondering if he should go to the ER. States she was told she could call the nurse at [facility] again, but also states she was told if she was that concerned then they should go to the ER. Reason for Disposition ??? Patient sounds very sick or weak to the triager Advised caller to check pt's DC paperwork to see if any phone numbers to call or instructions regarding reasons to return to the ED, and/or call the [facility] nurse again as she states she was told, otherwise if not able to reach anyone than this teletypewriter operator would recommend the ED due to pt's recent Hx. Protocols used: POST-HOSPITALIZATION FOLLOW-UP [id number] Pt's friend and pt state understanding and agree with plan and deny further questions at this time -will finish looking at DC paperwork and if no other numbers/guideance found, then Lynette will call back to speak with AN nurse or bring pt to the ED. Shea Ann RN 04/14/2021, 10:53 PM INATION WORKER Lashae Morfin - 04/14/2021 10:37 PM CST [...] SOB Plan:Caller transferred directly to [facility] nurse. INATION WORKER documented in this encounter Plan of Treatment Not on filedocumented as of this encounter Visit Diagnoses Not on filedocumented in this encounter Care Teams Research Center Partner Relationship Specialty Start Date End Date Aravind Decker MD PCP - General Family Practice 01/14/14 [address] [place] [address] documented as of this encounter
--- OUTSIDE RECORDS SUMMARY | 2022-03-13 17:51 | XMS_ITS | Encounter Summary ---
:1945 Author Organization [employer] Address [address] [place] [address] Care Team Providers Name Role Phone Aravind Decker MD Primary Care Provider Reason for Referral Consult/Transfer Care (Routine) - Incomplete Specialty Diagnoses / Procedures Referred By Contact Refer red To Contact Esther Luz PA-C [address] [place] [address] Referral ID Status Reason Start Date Expiration Date Visits V isits Requested Authorized [id number] Incomplete 01/17/2014 04/18/2015 1 1 Scheduling Instructions [...] [address] [place], [place] [phone] Fax: Referral ID Status Reason Start Date Expiration Date Visits Requ ested Visits Authorized [id number] Closed 01/17/2014 1 1 Scheduling Instructions Follow up with your doctor - SCO in 2 we eks Procedure/Equipment (Routine) - Closed Specialty Diagnoses / Procedures Referred By Contact Refer red To Contact Procedures Hemal Kaur OPA-C XR Knee 2 View Right Portable [facility] [address] [place] [address] Referral ID Status Reason Start Date Expiration Date Visits Requ ested Visits Authorized [id number] Closed 01/15/2014 04/16/2015 1 1 Reason for Visit Auth/Cert - Closed Specialty Diagnoses / Procedures Referred By Contact Refer red To Contact Diagnoses RT, MINIMALLY INVASIVE TOTAL JOINT REPLACEMENT KNEE DJD Procedures MINIMALLY INVASIVE TOTAL JOINT REPLACEMENT KNEE Referral ID Status Reason Start Date Expiration Date Visits Requ ested Visits Authorized [id number] Closed 1 1 Encounter Details Date Type Department Care Team Description 01/15/2014 - Hospital Encounter [facility] Med Surg Vini Duffy, 01/17/2014 [address] [place] [address] [address] [facility] [address] [phone] [place] [address] Social History Tobacco Use Types Packs/Day Years [...] Luz PA-C - 01/17/2014 11:50 AM CDT [facility] Orthopedics Discharge Summary Admit Date: 01/15/2014 10:22 [...] week) NAME: Esther Luz PA-C PHONE NUMBER: [phone] For information about patient referrals and other discharge orders, please see Discharge Instructions or the Other Orders tab in Chart Review. --End of Report-- documented in this encounter Discharge Instructions Discharge InstructionsIrina Rodriguez RN - 01/17/2014 10:21 AM CDT Contact Information [address] [address] Main or [phone] Same Day Surgery, M-F 7am to 5pm: [phone] Clinic Phone Numbers [facility] [phone] [facility] [phone] Emergency & Urgently Needed Care: For emergencies call 911 and/or get medical help right away. If you are a [facility] member and have medical needs after clinic hours you may call the [facility] [phone] or . Healthy Habits - Move! Aim [...] moderation - Choose healthy sources of fat: [place], peanut or canola oils, 1/4 cup nuts [...] doctor/pharmacist if it is safe to take xjnl-[id number]-[id number] drugs or herbs with your prescribed medicine. [...] weight will also be followed by the Selling Underwriter when you go in for your treatment. [...] starting tomorrow IF INCISION DRY AND INTACT Yahaira present: when showering REMOVE outer gauze dressing, yahaira can get wet in the shower. Shower as usual, after showering pat incision area dry with a clean towel then allow site to air dry for at least 30 mintues before applying new dressing. DO NOT SOAK INCISION - NO TUB BATHING, HOT TUBBING,OR SWIMMING UNTIL WOUND IS COMPLETELY HEALED AND OK'D BY . Information given on: Treatment, diagnosis, surgery Coumadin Danger signs to watch for: Temperature above 101 degrees and/or chills Increased redness, drainage or swelling Persistent nausea Increased warmth, redness, swelling or pain in either leg Increased pain in surgical site or affected area We hope you had a positive experience and that you can definitely recommend [facility] to your family and friends. AttachmentsThe following attachments cannot be sent through Care Everywhere. TOTAL KNEE REPLACEMENT SURGERY : GENERAL INFO (GREEK)documented in this encounter Medications at Time of [...] Luz PA-C - 01/17/2014 12:34 PM CDT [facility] Ortho Progress Note Date of service: 01/17/2014 [...] Luz PA-C --- End of Report --- William, Lj H - 01/17/2014 9:47 AM CDT [facility] Patients: Spiritual support provided by [employer]. WilliamLj art - 01/16/2014 11:22 AM CDT [facility] Patients: Spiritual support provided by [employer]. Vinnie Ventura PA-C - 01/16/2014 9:32 AM CDT [facility] Orthopaedics Progress Note Post-operative Day: [...] Rosa MD - 01/15/2014 4:12 PM CDT [facility] Post-Operative Anesthesia Note Admit Date/Time: 01/15/2014 10:22 [...] Rosa MD - 01/15/2014 11:30 AM CDT [facility] Pre-Anesthesia Evaluation and Plan Surgery Date: 01/15/2014 [...] benefits, alternatives and side effects with patient/responsible green party. All questions answered. Sinan De La Rosa MD documented in this encounter Procedure Notes Vini Duffy MD - 01/15/2014 2:56 PM CDT [facility] Brief Operative Progress Note Surgery Date: 01/15/2014 Surgeon and Assistants: Surgeon(s) and Role: * Vini Duffy MD - Primary * Hemal Kaur OPA-C - Assisting Post-Op Diagnosis Codes: * DJD R Knee (degenerative joint disease) [715.90] Procedure: Procedure(s) (LRB): MINIMALLY INVASIVE TOTAL JOINT REPLACEMENT KNEE (Right) EBL: 50 mL Specimens: none Complications: none Findings: arthritis Vini Duffy MD --- End of Report --- Viin Duffy MD - 01/15/2014 12:00 AM CDT DATE OF SERVICE: 01/15/2014 DATE OF SURGERY: 01/15/2014 PREOPERATIVE DIAGNOSIS: Right knee osteoarthritis. POSTOPERATIVE DIAGNOSIS: Right knee osteoarthritis. PROCEDURE: Right MIS (minimally invasive surgery) total knee arthroplasty. SURGEON: Vini Duffy M.D. REGULAR SENIOR CARE PROVIDER: RALPH Stewart (A PA was medically indicated [...] turned attention to placement of a lamina bistro attendant. Posterior elements of the mediolateral menisci and [...] in place #1 Ethibond sutures interr upted [id number] were used to close the arthrotomy, #1 Vicryl interrupted [id number] to close the VMO fascia, 2-0 Vicryl in the subcu, yahaira in the skin. Sterile bandages applied. The patient was awakened and returned to the postanesthesia care unit in excellent condition. No apparent intraoperative complications. PLAN: Routine total knee protocol. Vini Duffy MD TJP:mkc Dictated: 01/15/2014 15:01:05 Transcribed: 01/15/2014 15:20:24 Job: [id number] Doc: [id number] cc: documented in this encounter Consult Notes Quoc Moon, PharmD - 01/15/2014 5:02 PM CDTAssociated Order(s): WARFARIN PHARMACY CONSULT [facility] Clinical Pharmacy Warfarin Consult Note Assessment: Cornell English, [id number] is a 69 yr male currently receiving [...] Name Type Priority Associated Diagnoses Order S [facility] Orthopaedic/Sports Med Referral Routine Order ed: [...] Protime 15.4 (H) 9.3 - 11.5 [facility] INR 1.4 (H) 0.9 - 1.1 [facility] Comment: Suggested Therapeutic Ranges using INR f or stable anticoagulated patients: 2.0 - 3.0 Routine oral anticoagulant the [facility] for prevention and/or treatment of thrombosis. 2.5 - 3.5 With recurrent thromoembolic e vent and those with mechanical heart valves. Specimen Anatomical Collection Method Collection Time Receive d Time (Source) Location / / Volume Laterality 01/17/2014 7:00 AM 4 7:07 CDT AM CDT [facility] - 01/17/2014 7:32 AM CD T Performed at [facility], [address] [place], [place] [id number] Hemal Aguilera [facility] OPA-C LAB_1 Performing Organization Address City/[facility]/ZIP Code Phon e Number [address] [address] (ABNORMAL) HEMOGLOBIN, BLOOD Daily x2 (01/17/2014 7:00 AM CDT) athologist Signature Hemoglobin 10.5 (L) 13.5 - 17.5 [facility] Specimen Anatomical Collection Method Collection Time Receive d Time (Source) Location / / Volume Laterality 01/17/2014 7:00 AM 4 7:07 CDT AM CDT [facility] - 01/17/2014 7:18 AM CD T Performed at [address] [address] Hemal Aguilera [facility] OPA-C LAB_1 Performing Organization Address City/[facility]/ZIP Code Phon e Number [address] [address] (ABNORMAL) INR/PROTIME (01/16/2014 6:55 AM CDT) athologist Signature Protime 13.7 (H) 9.3 - 11.5 [facility] INR 1.3 (H) 0.9 - 1.1 [facility] Comment: Suggested Therapeutic Ranges using INR f or stable anticoagulated patients: 2.0 - 3.0 Routine oral anticoagulant the [facility] for prevention and/or treatment of thrombosis. 2.5 - 3.5 With recurrent thromoembolic e vent and those with mechanical heart valves. Specimen Anatomical Collection Method Collection Time Receive d Time (Source) Location / / Volume Laterality 01/16/2014 6:55 AM 4 7:28 CDT AM CDT [facility] - 01/16/2014 7:42 AM CD T Performed at [facility], [address] [place] [id number] Hemal Aguilera Pabaldemar OPA-C LAB_1 Performing Organization Address City/[facility]/ZIP Code Phon e Number [address] [address] (ABNORMAL) HEMOGLOBIN, BLOOD Daily x2 (01/16/2014 6:55 AM CDT) athologist Signature Hemoglobin 11.2 (L) 13.5 - 17.5 [facility] Specimen Anatomical Collection Method Collection Time Receive d Time (Source) Location / / Volume Laterality 01/16/2014 6:55 AM 4 7:28 CDT AM CDT [facility] - 01/16/2014 7:47 AM CD T Performed at [facility], [address] [place] [address] Hemal Kaur OPA-C LAB_1 Performing Organization Address City/[facility] Phon e Number [address] [address] XR Knee 2 View Right Portable (01/15/2014 [...] Signature Protime 12.7 (H) 9.3 - 11.5 [facility] INR 1.2 (H) 0.9 - 1.1 [facility] Comment: Suggested Therapeutic Ranges using INR f or stable anticoagulated patients: 2.0 - 3.0 Routine oral anticoagulant the [facility] for prevention and/or treatment of thrombosis. 2.5 - 3.5 With recurrent thromoembolic e vent and those with mechanical heart valves. Specimen Anatomical Collection Method Collection Time Receive d Time (Source) Location / / Volume Laterality 01/15/2014 11:55 01/15/2014 AM CDT 12:00 PM CDT [facility] - 01/15/2014 12:17 PM C DT Performed at [facility], [address] [place] [address] Hemal SERRANO-Devon LAB_1 Performing Organization Address City/State/ZIP Code Phon e Number [address] [address] (ABNORMAL) HEMOGRAM/PLTS (01/15/2014 11:55 AM CDT) athologist Signature WBC 6.4 4.0 - 11.0 [facility] k/[facility] RBC 4.60 4.5 - 5.9 [facility] M/[facility] Hemoglobin 13.4 (L) 13.5 - 17.5 [facility] g/dl HOSPITAL HCT 40.6 (L) 41.0 - 53.0 [facility]PITAL MCV 88.1 80 - 100 fl [facility] MCH 29.2 26 - 34 pg [facility] MCHC 33.1 32 - 36 [facility] g/dl HOSPITAL RDW 12.7 11.5 - 14.5 [facility] HOSPITAL Platelets 303 150 - 450 [facility] k/[facility] MPV 7.2 6.5 - 11.0 [facility] Specimen Anatomical Collection Method Collection Time Receive d Time (Source) Location / / Volume Laterality 01/15/2014 11:55 01/15/2014 AM CDT 12:00 PM CDT Narrative [facility] - 01/15/2014 12:23 PM C DT Performed at [facility], [address] [place], [place] [id number] Hemal Kaur OPA-C LAB_1 Performing Organization Address City/State/ZIP Code Phon e Number [address] [address] EKG IP (01/15/2014 12:00 AM CDT) Specimen (Source) Anatomical Location Collection Method / Collectio n Time Received Time / Laterality Volume 01/15/2014 Narrative This result has an attachment that is no t available. EKG documented in this encounter Visit Diagnoses Plan of Care - Irina Rodriguez RN - 01/17/2014 1:37 PM CDT [address] [place] [address] Discharge Note - Nursing Admission Date/Time: 01/15/2014 [...] REFUSED discharge instructions. 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 RKbrunoe drsg & cms intact and pt is [...] to discharge to home when able. Beckie Jolly, RN Plan of Care - Lashae Pandey, PT - 01/16/2014 3:18 PM CDT [facility] Plan of Care Note Assessment: Pt progressing [...] Pandey, PT - 01/16/2014 10:53 AM CDT [facility] Plan of Care Note Assessment: Eval complete. [...] MD. Instead of 24 hrs. 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 Percocet given for pain 4/10 with relief. Pt describes his pain more of heavy felling. Pt uses a cane normally at home. Plan of Care - Lashae Pandey PT - 01/15/2014 5:12 PM CDT [facility] Plan of Care Note Assessment: Pt to [...] (Given - Pro vider: Lois Turner APRN, FOAM RUBBER MOLDER) 2 g, IV, ONCE (NON-SCHEDULED), Starting Tue01/15/14 [...] Tiffany Lopez RN)1011 (Given - Provider: Fabiola Bogoie RN)1632 (Given - Provider: Beckie Araya) 15 [...] (CANCELED) 0816 (Given - Provider: Rodrigo Boogie RN)204 (Given - Provider: Beckie Araya) 0838 (Given - Provider: Irina gomez RN) 1 Tab, Oral, BID, First dose on 01/16 at 0800, Until Discontinued, Post-op warfarin (aka COUMADIN) tablet 4 mg (COMPLETED) 183 (Given - Provider: Katharina Santacruz RN) 4 mg, Oral, ONCE, 1 dose, Tue01/16/14 at 1800 warfarin (aka COUMADIN) tablet 5 mg (COMPLETED) 174 ( Given - Provider: Julianna Gudino RN) 5 mg, Oral, WARFARIN - DAILY, 1 dose, Fi rst dose on Tue01/15/14 at 1800, Post-op Continuous Medication Order 01/15/2014 01/16/2014 01/17/2014 lactated ringers infusion 1,000 mL (CANCELED) 1222 (St arted - Provider: Kaity Escobar RN) 1,000 mL, at 25 mL/hr, IV, CONTINUOUS, S tarting Tue01/15/14 at 1128, Until Discontinued, Pre-op NaCl 0.45 % infusion 1,000 mL (CANCELED) 1843 (Started - Provider: Julianna Gudino RN) 1,000 mL, at 100 mL/hr, IV, CONTINUOUS, Starting e 01/15/14 at 1623, Until Discontinued, Post-op PRN Medication Order 01/15/2014 01/16/2014 01/17/2014 HYDROcodone-acetaminophen (aka NORCO) 5-325 MG tablet TABS 1-2 Tab (CANCELED) 1827 (See Alternative - Provider: Julianna Gudino RN)2004 (Given - Provider: Julianna Gudino RN) 26 (See Alternative - Provider: Shira Lopez RN)0428 (See Alternative - Provider: Tiffany Lopez, HERNANDEZ)0816 (See Alternative - Provider: Fabiola Boogie, HERNANDEZ)1216 (See Alternative - Provider: Fabiola Boogie RN) 0320 (See Alternative - Provider: Shira Lopez RN)0839 (See Alternative - Provider: Irina Rodriguez, HERNANDEZ)1215 (See Alternative - Provider: Irina Rodriguez, HERNANDEZ) 1-2 Tab, Oral, PRN PER PARAMETERS, Start ing e 01/15/14 at 1622, Until Discontinued, Pain, 1 [...] RN) 26 (Given - Provider: Tiffany Lopez, HERNANDEZ)0428 (Given - Provider: Tiffany Lopez RN)0816 (Given [...] tablets for severe pain.?See Admin Instructions, Post-op 5190 (Given - Provider: Beckie Araya) documented in this encounter Care Teams Purchasing/Receiving Relationship Specialty Start Date End Date Aravind Decker MD PCP - General Family Practice 01/14/14 [address] [place] [address] documented as of this encounter
--- OUTSIDE RECORDS SUMMARY | 2022-03-13 17:51 | XMS_ITS | Encounter Summary ---
:1945 Author Organization [employer] Address [address] [place] [address] Care Team Providers Name Role Phone Aravind Decker MD Primary Care Provider Reason for Visit Auth/Cert - Closed Specialty Diagnoses / Procedures Referred By Contact Refer red To Contact Diagnoses RT, MINIMALLY INVASIVE TOTAL JOINT REPLACEMENT KNEE DJD Procedures MINIMALLY INVASIVE TOTAL JOINT REPLACEMENT KNEE Referral ID Status Reason Start Date Expiration Date Visits Requ ested Visits Authorized [id number] Closed 1 1 Encounter Details Date Type Department Care Team Description 01/15/2014 Surgery LV Operating Room Vini Duffy MD MINIMALLY INVASIVE [address] [place] [address] [place] [address] [place] KNEE [phone] [facility] [phone] (Wo rk) Social History Tobacco Use Types [...] Luz PA-C - 01/17/2014 11:50 AM CDT [facility] Orth[facility] Discharge Summary Admit Date: 01/15/2014 [...] week) NAME: Esther Luz PA-C PHONE NUMBER: [phone] For information about patient referrals and other discharge orders, please see Discharge Instructions or the Other Orders tab in Chart Review. --End of Report-- documented in this encounter Discharge Instructions Discharge InstructionsIrina Rodriguez RN - 01/17/2014 10:21 AM CDT Contact Information [address] [address] Main or [phone] Same Day Surgery, M-F 7am to 5pm: [phone] Clinic Phone Numbers [facility] [phone] [facility] [phone] Emergency & Urgently Needed Care: For emergencies call 911 and/or get medical help right away. If you are a [facility] member and have medical needs after clinic hours you may call the [facility] [phone] or . Healthy Habits - Move! Aim [...] moderation - Choose healthy sources of fat: Tillman, peanut or canola oils, 1/4 cup nuts [...] doctor/pharmacist if it is safe to take saiy-ybf-fylwnge drugs or herbs with your prescribed medicine. [...] weight will also be followed by the Digital Media Coordinator when you go in for your treatment. [...] starting tomorrow IF INCISION DRY AND INTACT [place] present: when showering REMOVE outer gauze dressing, [...] experience and that you can definitely recommend to your family and friends. AttachmentsThe following attachments cannot be sent through Care Everywhere. TOTAL KNEE REPLACEMENT SURGERY : GENERAL INFO (HUNGARIAN)documented in this encounter Medications at Time of [...] Luz PA-C - 01/17/2014 12:34 PM CDT Ortho Progress Note Date of service: 01/17/2014 [...] --- End of Report --- Lj Thomas - 01/17/2014 9:47 AM CDT Spiritual Care for L[facility] Day Patients: Spiritual support provided by [employer]. Lj Thomas - 01/16/2014 11:22 AM CDT Spiritual Care for L[facility] Day Patients: Spiritual support provided by [employer]. Vinnie Ventura PA-C - 01/16/2014 9:32 AM CDT [facility] Orthopaedics Progress Note Post-operative Day: 1 [...] Rosa MD - 01/15/2014 4:12 PM CDT Post-Operative Anesthesia Note Admit Date/Time: 01/15/2014 10:22 [...] Rosa MD - 01/15/2014 11:30 AM CDT Pre-Anesthesia Evaluation and Plan Surgery Date: 01/15/2014 [...] benefits, alternatives and side effects with patient/responsible alliance party. All questions answered. Sinan De La Rosa MD documented in this encounter Procedure Notes Vini Duffy MD - 01/15/2014 2:56 PM CDT Brief Operative Progress Note Surgery Date: 01/15/2014 [...] total knee arthroplasty. SURGEON: Vini Duffy M.D. COAL PICKER: RALPH Stewart (A PA was medically indicated [...] turned attention to placement of a lamina oil spreader operator. Posterior elements of the mediolateral menisci and [...] in place #1 Ethibond sutures interr upted [id number] were used to close the arthrotomy, #1 Vicryl interrupted [id number] to close the VMO fascia, 2-0 Vicryl in the subcu, shon in the skin. Sterile bandages applied. The patient was awakened and returned to the postanesthesia care unit in excellent condition. No apparent intraoperative complications. PLAN: Routine total knee protocol. Vini Duffy MD TJP:mkc Dictated: 01/15/2014 15:01:05 Transcribed: 01/15/2014 15:20:24 Job: [id number] Doc: [id number] cc: documented in this encounter Consult Notes Quoc Moon PharmD - 01/15/2014 5:02 PM CDTAssociated Order(s): WARFARIN PHARMACY CONSULT Clinical Pharmacy Warfarin Consult Note Assessment: Cornell English, [id number] is a 69 yr male currently receiving [...] Name Type Priority Associated Diagnoses Order S [facility] Orthopaedic/Sports Med Referral Routine Order ed: [...] Signature Protime 15.4 (H) 9.3 - 11.5 [facility] INR 1.4 (H) 0.9 - 1.1 [facility] Comment: Suggested Therapeutic Ranges using INR [...] 4 7:07 CDT AM CDT [facility] - 01/17/2014 7:32 AM CD T Performed at Lab, [address] [place], [place] [id number] Hemal SERRANO-C LAB_1 Performing Organization Address City/[facility] Code Phon e Number [address] [address] (ABNORMAL) HEMOGLOBIN, BLOOD Daily x2 (01/17/2014 7:00 AM CDT) athologist Signature Hemoglobin 10.5 (L) 13.5 - 17.5 [facility] g/dl [facility] Specimen Anatomical Collection Method Collection Time Receive d Time (Source) Location / / Volume Laterality 01/17/2014 7:00 AM 4 7:07 CDT AM CDT [facility] - 01/17/2014 7:18 AM CD T Performed at [facility], [address] [place] [address] Hemal Aguilera Utbaldemar OPA-C LAB_1 Performing Organization Address City/[facility] Phon e Number [address] [address] (ABNORMAL) INR/PROTIME (01/16/2014 6:55 AM CDT) athologist Signature Protime 13.7 (H) 9.3 - 11.5 [facility] INR 1.3 (H) 0.9 - 1.1 [facility] Comment: Suggested Therapeutic Ranges using INR f or stable anticoagulated patients: 2.0 - 3.0 Routine oral anticoagulant the [facility] for prevention and/or treatment of thrombosis. 2.5 - 3.5 With recurrent thromoembolic e vent and those with mechanical heart valves. Specimen Anatomical Collection Method Collection Time Receive d Time (Source) Location / / Volume Laterality 01/16/2014 6:55 AM 4 7:28 CDT AM CDT [facility] - 01/16/2014 7:42 AM CD T Performed at [facility], [address] [place], [place] [id number] Hemal Kaur OPA-C LAB_1 Performing Organization Address City/[facility]/ZIP Code Phon e Number [address] [address] (ABNORMAL) HEMOGLOBIN, BLOOD Daily x2 (01/16/2014 6:55 AM CDT) athologist Signature Hemoglobin 11.2 (L) 13.5 - 17.5 [facility] Specimen Anatomical Collection Method Collection Time Receive d Time (Source) Location / / Volume Laterality 01/16/2014 6:55 AM 4 7:28 CDT AM CDT [facility] - 01/16/2014 7:47 AM CD T Performed at [facility], [address] [place] [address] Hemal Kaur OPA-C LAB_1 Performing Organization Address City/[facility]/ZIP Code Phon e Number [address] [address] XR Knee 2 View Right Portable (01/15/2014 [...] Signature Protime 12.7 (H) 9.3 - 11.5 [facility] INR 1.2 (H) 0.9 - 1.1 [facility] Comment: Suggested Therapeutic Ranges using INR [...] 01/15/2014 AM CDT 12:00 PM CDT Narrative [facility] - 01/15/2014 12:17 PM C DT Performed at [facility], [address] [place] [address] Hemal SERRANO-Devon LAB_1 Performing Organization Address City/State/ZIP Code Phon e Number [address] [address] (ABNORMAL) HEMOGRAM/PLTS (01/15/2014 11:55 AM CDT) P athologist Signature WBC 6.4 4.0 - 11.0 [facility] k/[facility] RBC 4.60 4.5 - 5.9 [facility] M/ul [facility] Hemoglobin 13.4 (L) 13.5 - 17.5 [facility] g/dl HOSPITAL HCT 40.6 (L) 41.0 - 53.0 [facility] HOSPITAL MCV 88.1 80 - 100 fl [facility] MCH 29.2 26 - 34 pg [facility] MCHC 33.1 32 - 36 [facility] g/dl HOSPITAL RDW 12.7 11.5 - 14.5 [facility] HOSPITAL Platelets 303 150 - 450 [facility] k/[facility] MPV 7.2 6.5 - 11.0 [facility] Specimen Anatomical Collection Method Collection Time Receive d Time (Source) Location / / Volume Laterality 01/15/2014 11:55 01/15/2014 AM CDT 12:00 PM CDT Narrative [facility] - 01/15/2014 12:23 PM C DT Performed at Lab, [address] [place], [place] [id number] Hemal Kaur OPA-C LAB_1 Performing Organization Address City/State/ZIP Code Phon e Number [address] [address] EKG IP (01/15/2014 12:00 AM CDT) Specimen [...] Rodriguez RN - 01/17/2014 1:37 PM CDT [address] [place] [address] Discharge Note - Nursing Admission Date/Time: 01/15/2014 [...] REFUSED discharge instructions. Cornell has been on detention coumadin for a-fib. Patients general condition on discharge: stable All medical devices (telemetry/IV/etc) unless otherwise ordered, have been removed and stored: Yes Report Completed by: Irina Rodriguez RN --- End of Report --- Plan of Care - Tiffany Lopez RN - 01/17/2014 5:57 AM CDT Pt reporting good relief of moderate sugical pain using one Percocet q4hrs during the accounting tutor. RKnee drsg & cms intact and pt [...] Pandey, PT - 01/16/2014 3:18 PM CDT Plan of Care Note Assessment: Pt progressing [...] Pandey PT - 01/16/2014 10:53 AM CDT Plan of Care Note Assessment: Eval complete. Pt motivated and willing to work with PT. Plan: Will plan to see pt this pm to cont progress toward rehab goals. --- End of Report --- Plan of Care - Tiffany Lopez RN - 01/16/2014 5:34 AM CDT Pt reporting 7-8/10 R Knee pain but states, Not as [...] MD. Instead of 24 hrs. Intervention: Functional [place] Promotion Pt moving self in bed and [...] has low tolerance from pain med so SENIOR LEAD JAVA DEVELOPER not started. Percocet given for pain 4/10 with relief. Pt describes his pain more of heavy felling. Pt uses a cane normally at home. Plan of Care - Lashae Pandey PT - 01/15/2014 5:12 PM CDT Plan of Care Note Assessment: Pt to [...] Araya) 0838 (Given - Provider: Irina gomez, HERNANDEZ) 25 mg, Oral, BID, First dose on Tue01/16/14 at 2028, Until Disco ntinued bisacodyl (aka DULCOLAX) suppository 10 mg (CANCELED) 0800 (Refused - Provider: Fabiola Boogie RN)1999 (Refused - Provider: Becike Araya) 0837 (Given - Provider: Irina Rodriguez [...] (Given - Pro vider: Lois Turner APRN, PUTTY AND PATCH WORKER) 2 g, IV, ONCE (NON-SCHEDULED), Starting Tue01/15/14 [...] Gudino, HERNANDEZ) 0428 (Given - Provider: Tiffany Lopez RN)1011 (Given - Provider: Fabiola Boogie RN)1632 (Given - Provider: Beckie Araya) 15 mg, IV, Q6H (NON-STND), 4 doses, Firs t dose on Tue01/15/14 at 2200, Last dose on Tue01/16/14 at 1600 magnesium oxide tablet 250 mg (CANCELED) 1700 (Given - Provider: Julianna Gudino, HERNANDEZ - Comment: does not scan.) 0800 (Given [...] mg (COMPLETED) 1830 (Given - Provider: Katharina Santacruz RN) 4 [...] HERNANDEZ)2004 (Given - Provider: Julianna Gudino, HERNANDEZ) 26 (See Alternative - Provider: Shira oLpez RN)0428 (See Alternative - Provider: Tiffany Lopez [...] Boogie RN)2328 (Given - Provider: Tiffany Lopez, HERNNADEZ) 3 mL, IV, PRN PER PARAMETERS, Starting T u01/15/14 at 1622, Until Discontinued, Line Patency, Post-op oxyCODONE-acetaminophen (aka PERCOCET) 5-325 MG tablet 1-2 Tab (CANCELED) 1827 (Given - Provider: Julianna Gudino, HERNANDEZ)2004 (See Alternative - Provider: Julianna Gudino RN) 0027 (Given - Provider: Tiffany Lopez, HERNANDEZ)0428 (Given - Provider: Tiffany Lopez, HERNANDEZ)0816 (Given - Provider: Fabiola Boogie, RN)1216 (Given - Provider: Fabiola Boogie, RN)1630 (OR - Provider: Beckie Araya) 0320 (Given - Provider: Tiffany Lopez, HERNANDEZ)0839 (Given - Provider: Irina Rodriguez, HERNANDEZ)1215 (Given - Provider: Irina Rodriguez, RN) 1-2 Tab, Oral, PRN PER PARAMETERS, Start ing 01/15/14 at 1622, Until Discontinued, Pain, 1 tablet for moderate pain, 2 tablets for severe pain.?See Admin Instructions, Post-op 6208 (Given - Provider: Beckie Araya) documented in this encounter Care Teams System Support Developer Relationship Specialty Start Date End Date Aravind Decker MD PCP - General Family Practice 01/14/14 [address] [place] [address] documented as of this encounter
[2022-03-13 17:53] LABS: Slide Review Reflex No
[2022-03-13 17:58] LABS: Bacteria Urine Few; Squamous Epithelial Cell Urine Few (None-Few)
--- NOTE | 2022-03-13 18:30 | ED_ITS ---
HPI - General Adult General Chief complaint: Chest Pain Stated complaint: Bradycardia Time Seen by Provider: 03/13/22 17:14 Source: patient Mode of arrival: ambulatory Limitations: no limitations History of Present Illness HPI narrative: Patient is a 77-year-old male coming in today concerned because his pulse was in the low 50s when he was at home today. Generally does in the 70s. He did not feel chest pain or shortness of breath. He did not feel dizzy or lightheaded. He was also concerned because blood pressure was 90 systolic. Lastly he states that his temperature was just above 95. He denies any fevers or chills. He denies changes in his appetite. He denies weakness. He just recently had a procedure done where he had procedure wires removed from the abdominal wall, he does have a small lesion that is healing by secondary intention of the abdominal wall so he PACs that periodically, states that that has been going well. Denies any redness to the area or increasing pain. He denies abdominal discomfort or urinary changes. No diarrhea. Upon arrival patient's blood pressure is in the 1 teens systolic and his pulse is 64. Related Data Home Medications Medication Instructions Recorded Confirmed dofetilide 250 mcg capsule mcg 02/20/22 ferrous gluconate 324 mg (38 mg mg 02/20/22 iron) tablet furosemide 40 mg tablet mg 02/20/22 metoprolol succinate 25 mg mg PO 02/20/22 tablet,extended release 24 hr metoprolol tartrate 25 mg tablet mg 02/20/22 mirtazapine 7.5 mg tablet mg 02/20/22 pregabalin 100 mg capsule mg 02/20/22 pregabalin 25 mg capsule mg 02/20/22 sennosides 8.6 mg tablet (senna) mg 02/20/22 sumatriptan succinate 50 mg tablet mg PO 02/20/22 tramadol 50 mg tablet mg 02/20/22 warfarin 1 mg tablet mg 02/20/22 Previous Rx's Medication Instructions Recorded amoxicillin 875 mg-potassium 1 tab PO BID #10 tabs 03/05/22 clavulanate 125 mg tablet oxycodone-acetaminophen 5 mg-325 1 - 2 tab PO Q4-6H PRN pain #14 03/05/22 mg tablet (Endocet) tabs Allergies Allergy/AdvReac Type Severity Reaction Status Date / Time Phenothiazines Allergy Severe Angioedema Verified 03/05/22 02:30 dronedarone [From Multaq] Allergy Verified 03/05/22 02:30 meperidine [From Demerol] Allergy Verified 03/05/22 02:30 morphine Allergy Verified 03/05/22 02:30 promethazine [From Phenergan] Allergy Verified 03/05/22 02:30 Review of Systems Status of ROS: Reports: 10 or more systems reviewed and unremarkable except as noted in History and below PFSH [facility] Medical History Anemia Anxiety Degenerative joint disease Hypertension Paroxysmal atrial fibrillation Restless leg Surgical History History of appendectomy History of arthroscopic knee surgery History of back surgery History of cardiac radiofrequency ablation History of cholecystectomy S/P AAA repair Social History Smoking Status: Never smoker Do you use any of these nicotine containing products: None Second hand tobacco smoke exposure: No How often do you have a drink containing alcohol: never How often do you have six or more drinks on one occasion: Never AUDIT-C Alcohol total score: 0 Non-prescribed substance use: denies use service: No Exam Narrative: Exam Narrative: Well-nourished well-developed patient in no acute distress. Alert and oriented. Answers questions appropriately. Mood and affect are appropriate. Thoughts are goal oriented and rational. No tangential or magical thinking noted. Patient speaks in full sentences without needing to catch his breath. He does not appear ill or toxic. HEENT: Normocephalic atraumatic. Pupils are equally round reactive to light. Extraocular muscles are intact. Conjunctivae are moist without any icterus noted. Cardiovascular: Heart is regular rate and rhythm S1 and S2 are present . Lungs: Clear to auscultation bilaterally no wheezes rhonchi or rales are appreciated. Patient takes deep breaths without any discomfort. Abdomen: Soft and nontender nondistended with normal bowel sounds. No guarding or rebound. Patient has a healing lesion on the anterior abdominal wall, no evidence of infection noted. Extremities: Bilateral lower extremities are without edema. Normal DP and PT pulses. Skin: Well perfused without any obvious rashes. Const: Vital Signs, click to edit/add: Vital Signs - 24 hr 03/13/22 17:16 03/13/22 19:09 03/13/22 19:32 Temperature 96.9 F L Pulse Rate Pulse Rate [Left P ulse Oximeter] 64 Respiratory Rate 16 Blood Pressure 145/129 H 135/105 H Blood Pressure [Le ft Upper Arm] 116/73 Pulse Oximetry 99 Oxygen Delivery Me thod Room Air 03/13/22 20:00 03/13/22 20:02 03/13/22 20:32 Temperature Pulse Rate Pulse Rate [Left P ulse Oximeter] Respiratory Rate Blood Pressure 132/78 116/74 Blood Pressure [Le ft Upper Arm] Pulse Oximetry 100 Oxygen Delivery Me thod 03/13/22 20:47 03/13/22 21:00 03/13/22 21:02 Temperature Pulse Rate 78 71 72 Pulse Rate [Left P ulse Oximeter] Respiratory Rate Blood Pressure 127/74 Blood Pressure [Le ft Upper Arm] Pulse Oximetry 99 97 98 Oxygen Delivery Me thod 03/13/22 21:30 03/13/22 21:31 03/13/22 22:00 Temperature Pulse Rate 74 73 74 Pulse Rate [Left P ulse Oximeter] Respiratory Rate Blood Pressure 122/70 Blood Pressure [Le ft Upper Arm] Pulse Oximetry 99 99 98 Oxygen Delivery Me thod 03/13/22 22:01 Temperature Pulse Rate 71 Pulse Rate [Left P ulse Oximeter] Respiratory Rate Blood Pressure 121/67 Blood Pressure [Le ft Upper Arm] Pulse Oximetry 98 Oxygen Delivery Me thod Course Course Hospital Course: CBC, lactate all normal without signs of infection. Urine grossly unremarkable. Were not able to do a CRP today as the machine was not working. While he was here patient remained in the upper to 50s to low 60s heart rate and blood pressure remained stable. Temperature did not drop below 96.9. EKG was done, read by me, shows a second-degree AV block type 2. I did speak with , button inspector at [facility], who recommended that the patient be transferred for pacemaker placement. Vital Signs Vital signs: Initial Vital Signs Temperature 96.9 F L 03/13/22 17:16 Temperature Source Temporal Artery Scan 03/13/22 17:16 Pulse Rate 64 03/13/22 17:16 Pulse Rhythm 03/13/22 17:16 Pulse Strength 3+ Normal 03/13/22 17:16 Respiratory Rate 16 03/13/22 17:16 Blood Pressure 116/73 03/13/22 17:16 Blood Pressure Mean 87 03/13/22 17:16 Blood Pressure Position Sitting 03/13/22 17:16 Pulse Oximetry 99 03/13/22 17:16 Oxygen Delivery Method 03/13/22 17:16 Vital Signs Temperature 96.9 F L 03/13/22 17:16 Pulse Rate 64 03/13/22 17:16 Respiratory Rate 16 03/13/22 17:16 Blood Pressure 116/73 03/13/22 17:16 Pulse Oximetry 99 03/13/22 17:16 Oxygen Delivery Method 03/13/22 17:16 Temperature 96.9 F L 03/13/22 17:16 Pulse Rate 71 03/13/22 22:01 Respiratory Rate 16 03/13/22 17:16 Blood Pressure 121/67 03/13/22 22:01 Pulse Oximetry 98 03/13/22 22:01 Oxygen Delivery Method 03/13/22 17:16 Medical Decision Making MDM Narrative Medical decision making narrative: 77-year-old male with bradycardia secondary to second-degree AV block type 2. Patient will be transferred to [facility] for further management via ALS. Medical Records Medical records reviewed: Yes I reviewed the patient's medical records Lab Data Lab results reviewed: Yes I reviewed the patient's lab results Labs: Lab Results 03/13/22 03/13/22 03/13/22 Range/Units 17:38 17:42 17:42 WBC 4.98 (4.50-11.00) K/uL RBC 4.63 (4.30-5.90) m/uL Hgb 14.1 (13.5-17.5) gm/dL Hct 43.3 (37.0-53.0) % MCV 94 (80-100) fL MCH 31 (26-34) pg MCHC 33 (32-36) gm/dL RDW Coeff of Phyllis 12.9 (11.5-15.5) % Plt Count 187 (140-440) K/uL Neut % (Auto) 60.1 (42.0-72.0) % Lymph % (Auto) 30.5 (20-44) % [place] % (Auto) 6.8 (0.0-11.0) % Eos % (Auto) 2.4 (0.0-7.0) % Baso % (Auto) 0.2 (0.0-3.0) % Neut # (Auto) 2.99 (1.7-7.0) K/uL Lymph # (Auto) 1.52 (0.90-2.90) K/uL [place] # (Auto) 0.30 (0.00-0.90) K/UL Eos # (Auto) 0.12 (0.00-0.50) K/uL Baso # (Auto) 0.01 (0.00-0.30) K/uL Abs Immat Gran (auto) 0.00 (0.00-0.30) K/uL Imm/Tot Granulo (auto) 0.0 % Sodium 141 (135-149) mmol/L Potassium 4.0 (3.6-5.1) mmol/L Chloride 105 (96-114) mmol/L Carbon Dioxide 34 H (20-32) mmol/L BUN 21 (7-30) mg/dL Creatinine 0.9 (0.5-1.5) mg/dL Estimated Creat Clear 68.54 Estimated GFR 89 ml/min Glucose 84 (60-115) mg/dL Lactate (0.5-1.9) mmol/L Calcium 9.2 (8.4-10.6) mg/dL C-Reactive Protein 0.5 (0.5-1.0) mg/dL TSH (0.270-4.20) uIU/mL Urine Color Yellow (Yellow) Urine Appearance Clear (Clear) Urine pH 5.0 (5.0-8.5) Ur Specific [place] 1.020 (1.000-1.030) Urine Protein Negative (Negative) Urine Glucose (UA) Negative (Negative) Urine Ketones Negative (Negative) Urine Blood Negative (Negative) Urine Nitrite Negative (Negative) Urine Bilirubin Negative (Negative) Urine Urobilinogen 0.2 (0.2-1.0) Ur Leukocyte Esterase Negative (Negative) Urine RBC 5-10 A (0-2) Urine WBC 5-10 A (0-5) Ur Squamous Epith Cells Few (None-Few) Urine Bacteria Few A (None) SARS-CoV-2 (PCR) (Negative) 03/13/22 03/13/22 03/13/22 Range/Units 17:42 17:42 19:10 WBC (4.50-11.00) K/uL RBC (4.30-5.90) m/uL Hgb (13.5-17.5) gm/dL Hct (37.0-53.0) % MCV (80-100) fL MCH (26-34) pg MCHC (32-36) gm/dL RDW Coeff of Phyllis (11.5-15.5) % Plt Count (140-440) K/uL Neut % (Auto) (42.0-72.0) % Lymph % (Auto) (20-44) % [place] % (Auto) (0.0-11.0) % Eos % (Auto) (0.0-7.0) % Baso % (Auto) (0.0-3.0) % Neut # (Auto) (1.7-7.0) K/uL Lymph # (Auto) (0.90-2.90) K/uL [place] # (Auto) (0.00-0.90) K/UL Eos # (Auto) (0.00-0.50) K/uL Baso # (Auto) (0.00-0.30) K/uL Abs Immat Gran (auto) (0.00-0.30) K/uL Imm/Tot Granulo (auto) % Sodium (135-149) mmol/L Potassium (3.6-5.1) mmol/L Chloride (96-114) mmol/L Carbon Dioxide (20-32) mmol/L BUN (7-30) mg/dL Creatinine (0.5-1.5) mg/dL Estimated Creat Clear Estimated GFR ml/min Glucose (60-115) mg/dL Lactate 0.5 (0.5-1.9) mmol/L Calcium (8.4-10.6) mg/dL C-Reactive Protein (0.5-1.0) mg/dL TSH 1.980 (0.270-4.20) uIU/mL Urine Color (Yellow) Urine Appearance (Clear) Urine pH (5.0-8.5) Ur Specific [place] (1.000-1.030) Urine Protein (Negative) Urine Glucose (UA) (Negative) Urine Ketones (Negative) Urine Blood (Negative) Urine Nitrite (Negative) Urine Bilirubin (Negative) Urine Urobilinogen (0.2-1.0) Ur Leukocyte Esterase (Negative) Urine RBC (0-2) Urine WBC (0-5) Ur Squamous Epith Cells (None-Few) Urine Bacteria (None) SARS-CoV-2 (PCR) Negative SARS-CoV-2 (Negative) ECG Data Attestation: I personally reviewed and interpreted this ECG as follows: (Second- degree AV block type 2 pulse 55) Discharge Plan Discharge Clinical Impression: Second degree AV block, Mobitz type II Patient Disposition: [facility] Condition: Stable Prescriptions: No Action furosemide 40 mg tablet Label Comments: TAKE 1 TABLET (40 MG) BY MOUTH EVERY MORNING. sennosides [senna] 8.6 mg tablet Label Comments: TAKE 1 TABLET BY MOUTH 2 TIMES DAILY IF NEEDED FOR CONSTIPATION. dofetilide 250 mcg capsule sumatriptan succinate 50 mg tablet PO Label Comments: TAKE 1 TABLET (50 MG) BY MOUTH EVERY 2 HOURS IF NEEDED FOR MIGRAINE. GIVE AT MINIMUM 2HRS APART. MAX DOSE: 200MG PER 24HRS. tramadol 50 mg tablet Label Comments: take 1 tab qhs as needed for RLS rescue therapy. Not to exceed more than 2 nights/week metoprolol succinate 25 mg tablet extended release 24 hr PO warfarin 1 mg tablet Label Comments: TAKE BY MOUTH 2 MG (1 MG X 2) EVERY SUN; 3 MG (1 MG X 3) ALL OTHER DAYS OR DIRECTED metoprolol tartrate 25 mg tablet mirtazapine 7.5 mg tablet pregabalin 25 mg capsule Label Comments: TAKE 1 CAP 3 TIMES PER DAILY. INCREASE TO 2 CAPS NIGHTTIME DOSING IF NEEDED AFTER 1 WEEK (TOTAL DOSING 125 MG AM AND AFTERNOON 150MG AT BEDTIME) pregabalin 100 mg capsule Label Comments: TAKE 1 CAPSULE BY MOUTH THREE TIMES A DAY ferrous gluconate 324 mg (38 mg iron) tablet Label Comments: TAKE 1 TABLET BY MOUTH ONCE DAILY WITH A MEAL. amoxicillin-pot clavulanate 875-125 mg tablet 1 tab PO BID Qty: 10 0RF oxycodone-acetaminophen [Endocet] 5-325 mg tablet 1 - 2 tab PO Q4-6H PRN (Reason: pain) Qty: 14 0RF Stand Alone Forms: MyHealth Info Instructions
[2022-03-13 18:39] LABS: Chloride* 105 mmol/L (96-114); Sodium* 141 mmol/L (135-149)
[2022-03-13 18:41] LABS: Creatinine* 0.9 mg/dL (0.5-1.5); Est. Creatinine Clearance* 68.54; Estimated Glomerular Filt Rate 89 ml/min
[2022-03-13 18:42] LABS: Carbon Dioxide* 34 mmol/L (20-32)
[2022-03-13 18:43] LABS: Blood Urea Nitrogen* 21 mg/dL (7-30); Calcium* 9.2 mg/dL (8.4-10.6); Glucose* 84 mg/dL (60-115)
[2022-03-13 18:45] LABS: C Reactive Protein* 0.5 mg/dL (0.5-1.0)
[2022-03-13 19:50] LABS: SARS PCR* Negative SARS-CoV-2 (Negative)
--- NOTE | 2022-03-13 22:45 | ED.NURSE ---
Patient transferred to [facility] with [facility] with IV saline locked and monitor tech which showed patient in sinus rhythm.
== END 2022-03-13 22:59 | disposition short-term general hospital (02) ==
PROVIDERS: Emergency Provider Family Medicine; PCP Family Medicine
DX: I44.1 Atrioventricular block, second degree (principal)
CPT/HCPCS: 36415; 80048; 81001; 83605; 84443; 85025; 86140; 87086; 87186; 87635; 93005; 94761; 99284; 99285

== ENCOUNTER 2022-04-20 10:50 | Emergency (ER) | payer MEDICARE, OTHER, SELFPAY ==
[2022-04-20] VITALS (9 sets, daily range): BP systolic 95–116; BP diastolic 66–74; PULSE 57–81; RESP 14–22; TEMP 36.8; O2SAT 93–100; BMI 23.1
--- NOTE | 2022-04-20 11:54 | CRLHL7_ITS ---
For Patients: As a result of the Century Cures Act, medical imaging exams and procedure reports are released immediately into your electronic medical record. You may view this report before your referring provider. If you have questions, please contact your health care provider. INDICATION: Shortness of breath TECHNIQUE: Chest 1 view COMPARISON: 06/20/2021 FINDINGS: Cardiovascular and mediastinum: Cardiac silhouette is enlarged. Postop changes noted. Vascular calcifications. Lungs and pleural spaces: Mild chronic scarring in both lung apices. No dense infiltrate. No pulmonary edema or pleural effusion. No pneumothorax. Previously noted infiltrates have since resolved. Bones and soft tissues: No significant findings. IMPRESSION: No acute findings. Lungs clear. Dictated by Rashard Reid MD @ 04/20/2022 12:34:09 PM (Electronically Signed)
[2022-04-20 12:16] LABS: Lactate* 0.9 mmol/L (0.5-1.9)
[2022-04-20 12:28] LABS: Basophils Percent Auto 0.7 % (0.0-3.0); Hematocrit 41.3 % (37.0-53.0); Hemoglobin* 13.5 gm/dL (13.5-17.5); Mean Corpuscular HGB Conc 33 gm/dL (32-36); Mean Corpuscular Hemoglobin 30 pg (26-34); Mean Corpuscular Volume 93 fL (80-100); Monocytes Percent Auto 9.9 % (0.0-11.0); Neutrophils Percent Auto 65.4 % (42.0-72.0); Platelet Count* 194 K/uL (140-440); RDW Coefficient of Variation % 12.9 % (11.5-15.5); Red Blood Count 4.46 m/uL (4.30-5.90); White Blood Count* 4.45 K/uL (4.50-11.00)
[2022-04-20 12:29] LABS: Slide Review Reflex No
[2022-04-20 12:45] LABS: Albumin* 4.1 g/dL (3.3-5.0); Chloride* 105 mmol/L (96-114); Sodium* 141 mmol/L (135-149)
[2022-04-20 12:47] LABS: Creatinine* 0.7 mg/dL (0.5-1.5); Est. Creatinine Clearance* 68.54; Estimated Glomerular Filt Rate 95 ml/min
[2022-04-20 12:48] LABS: Alkaline Phosphatase* 82 U/L (40-150); Aspartate Amino Transferase* 34 U/L (12-35); Bilirubin Direct* 0.3 mg/dL (0.0-0.5); Bilirubin Total* 0.7 mg/dL (0.1-1.5); Carbon Dioxide* 29 mmol/L (20-32); Total Protein* 7.9 g/dL (6.0-8.3)
[2022-04-20 12:49] LABS: Alanine Aminotransferase* 28 U/L (4-50); Blood Urea Nitrogen* 24 mg/dL (7-30); Calcium* 8.9 mg/dL (8.4-10.6); Glucose* 80 mg/dL (60-115); Magnesium* 2.1 mg/dL (1.5-2.6)
[2022-04-20 13:00] LABS: NT Pro B Type NatriureticPept* 812 pg/mL
[2022-04-20 13:27] LABS: TSH With Reflex to FT4* 0.748 uIU/mL (0.270-4.200)
--- NOTE | 2022-04-20 17:15 | ED_ITS ---
HPI - General Adult General Date Seen: 04/20/22 Chief complaint: Weakness Stated complaint: Covid+/A-Fib Time Seen by Provider: 04/20/22 11:08 Source: patient, RN notes reviewed and old records reviewed Mode of arrival: ambulatory Limitations: no limitations History of Present Illness HPI narrative: Patient is a 77-year-old male who presents with frequent episodes of lightheadedness over the past couple of days. He says he just will feel kind of woozy for 10-15 seconds. He has not had any fainting. Says for the past 5 or 6 days he has been really feeling poorly with headache, cough, sore throat, fatigue, body aches. Then he found out he had COVID. Lot of those symptoms have gotten better, but he still has a little bit of a sore throat and the fatigue has not completely resolved. He had fevers for couple of days but those are gone. He became a little concerned about this lightheadedness because he has history of AFib. He felt his pulse and thought it seemed irregular, so he was worried maybe he was in atrial fibrillation. Last month, he was here and had an EKG showing a second-degree AV block, type 2. He was transferred to [facility], but they elected not to do a pacemaker, and instead his medications were changed, he was discontinued off of his metoprolol was started on flecainide. He reports that in general he has done very well in a flecainide, has felt he says ?great? until these past several days when he got COVID. He has not had vomiting or diarrhea, he says he has been keeping up with water intake. No black or bloody stools. No urinary symptoms. Related Data Home Medications Medication Instructions Recorded Confirmed dofetilide 250 mcg capsule mcg 02/20/22 ferrous gluconate 324 mg (38 mg mg 02/20/22 iron) tablet furosemide 40 mg tablet mg 02/20/22 metoprolol succinate 25 mg mg PO 02/20/22 tablet,extended release 24 hr metoprolol tartrate 25 mg tablet mg 02/20/22 mirtazapine 7.5 mg tablet mg 02/20/22 pregabalin 100 mg capsule mg 02/20/22 pregabalin 25 mg capsule mg 02/20/22 sennosides 8.6 mg tablet (senna) mg 02/20/22 sumatriptan succinate 50 mg tablet mg PO 02/20/22 tramadol 50 mg tablet mg 02/20/22 warfarin 1 mg tablet mg 02/20/22 Previous Rx's Medication Instructions Recorded amoxicillin 875 mg-potassium 1 tab PO BID #10 tabs 03/05/22 clavulanate 125 mg tablet oxycodone-acetaminophen 5 mg-325 1 - 2 tab PO Q4-6H PRN pain #14 03/05/22 mg tablet (Endocet) tabs Allergies Allergy/AdvReac Type Severity Reaction Status Date / Time Phenothiazines Allergy Severe Angioedema Verified 03/05/22 02:30 dronedarone [From Multaq] Allergy Verified 03/05/22 02:30 meperidine [From Demerol] Allergy Verified 03/05/22 02:30 morphine Allergy Verified 03/05/22 02:30 promethazine [From Phenergan] Allergy Verified 03/05/22 02:30 Review of Systems Status of ROS: Reports: 10 or more systems reviewed and unremarkable except as noted in History and below [facility] Medical History Anemia Anxiety Degenerative joint disease Hypertension Paroxysmal atrial fibrillation Restless leg Surgical History History of appendectomy History of arthroscopic knee surgery History of back surgery History of cardiac radiofrequency ablation History of cholecystectomy S/P AAA repair Social History Smoking Status: Never smoker Do you use any of these nicotine containing products: None Second hand tobacco smoke exposure: No How often do you have a drink containing alcohol: never How often do you have six or more drinks on one occasion: Never AUDIT-C Alcohol total score: 0 Non-prescribed substance use: denies use service: No Exam Narrative: Exam Narrative: Vital signs as noted above. In general, an alert, thin, nontoxic male. He looks comfortable. Head: Normocephalic, atraumatic. Eyes: Pupils are equal reactive. Extraocular movements are full. Conjunctivae are normal. ENT: Mucous membranes are moist. Throat is normal. Neck: Supple without lymphadenopathy. Heart: Heart rate is somewhat irregular. Lungs: Clear bilaterally. No increased work of breathing, crackles or wheezes. Abdomen: Soft and nontender. He has a wound from a prior surgery which is healing in, this looks to be healing very well, small amount of packing remains. No surrounding erythema, no drainage. Nontender to palpation. Extremities: Well perfused. No edema. No calf tenderness. Pulses intact. Neurologic: Patient is alert and oriented to person and place. Speech is fluent. Face is symmetric. Moves all extremities equally. Affect: Normal. Skin: Warm and dry. Well perfused. Const: Vital Signs, click to edit/add: Vital Signs - 24 hr 04/20/22 11:40 04/20/22 11:54 04/20/22 11:30 Temperature 98.3 F Pulse Rate [Left] 57 L 77 Respiratory Rate 16 22 Blood Pressure [Ri ght Upper Arm] 95/74 108/73 Pulse Oximetry 95 93 93 Oxygen Delivery Me thod Room Air Room Air 04/20/22 11:40 04/20/22 12:40 04/20/22 12:00 Temperature Pulse Rate [Left] 67 74 72 Respiratory Rate 14 15 16 Blood Pressure [Ri ght Upper Arm] 95/74 116/66 108/71 Pulse Oximetry 95 100 100 Oxygen Delivery Me thod Room Air Room Air Room Air 04/20/22 12:20 04/20/22 13:00 04/20/22 13:30 Temperature Pulse Rate [Left] 71 81 79 Respiratory Rate 18 20 16 Blood Pressure [Ri ght Upper Arm] 100/72 115/73 116/71 Pulse Oximetry 100 95 100 Oxygen Delivery Me thod Room Air Room Air Room Air 04/20/22 14:00 Temperature Pulse Rate [Left] 74 Respiratory Rate 21 Blood Pressure [Ri ght Upper Arm] 115/68 Pulse Oximetry 100 Oxygen Delivery Me thod Room Air Documenting provider has reviewed patient's vital signs: yes Course Course Hospital Course: Patient was maintained on the monitor throughout his stay here. He was have some variability in his heart rate, initial EKG showed by my review sinus rhythm with a first-degree AV block, rate of 75. He did have an EKG where his heart rate was bradycardic with the rate of 52 and he had more sinus arrhythmia. On this EKG, he is noted to have some dropped beats. I did review this with Dr. King, on-call for Jewel Hernandez. As these are dropped PACs, he said that there was nothing to be concerned about. No evidence of recurrent second- degree AV block. Patient's labs today are reassuring. White blood cell count is slightly low at 4.5 consistent with his COVID diagnosis. Hemoglobin is 13.5. Electrolytes are entirely within normal limits. Lactate is normal. Magnesium is 2.1, LFTs are normal. CRP is 4, again likely related to his COVID diagnosis. BNP is 812. TSH is normal. Troponin is 0. Dr. King did recommend that if he had not had a Holter monitor on leaving the hospital last month that we set 1 up today just to make sure that he is not having concerning arrhythmias. That has been arranged. For today, I think that he is likely having symptoms related to COVID. We have not seen any other concerning rhythms while on the monitor at times when he has been symptomatic. Would recommend continued rest, anticipate improvement over the next week or so. Primary care follow-up for recheck next week. Cardiology follow-up as planned. Return at any time for worsening, chest pain, fevers, syncope etcetera. Otherwise Holter monitor as planned. Vital Signs Vital signs: Initial Vital Signs Pulse Rate 77 04/20/22 11:30 Respiratory Rate 22 04/20/22 11:30 Respiratory Effort Spontaneous 04/20/22 11:30 Respiratory Depth Normal 04/20/22 11:30 Respiratory Pattern 04/20/22 11:30 Blood Pressure 108/73 04/20/22 11:30 Blood Pressure Mean 84 04/20/22 11:30 Blood Pressure Position Supine 04/20/22 11:30 Pulse Oximetry 93 04/20/22 11:30 Oxygen Delivery Method 04/20/22 11:30 Vital Signs Pulse Rate 77 04/20/22 11:30 Respiratory Rate 22 04/20/22 11:30 Blood Pressure 108/73 04/20/22 11:30 Pulse Oximetry 93 04/20/22 11:30 Oxygen Delivery Method 04/20/22 11:30 Temperature 98.3 F 04/20/22 11:40 Pulse Rate 74 04/20/22 14:00 Respiratory Rate 21 04/20/22 14:00 Blood Pressure 115/68 04/20/22 14:00 Pulse Oximetry 100 04/20/22 14:00 Oxygen Delivery Method 04/20/22 14:00 Medical Decision Making Lab Data Labs: Lab Results 04/20/22 04/20/22 04/20/22 Range/Units 11:40 11:54 11:54 WBC 4.45 L (4.50-11.00) K/uL RBC 4.46 (4.30-5.90) m/uL Hgb 13.5 (13.5-17.5) gm/dL Hct 41.3 (37.0-53.0) % MCV 93 (80-100) fL MCH 30 (26-34) pg MCHC 33 (32-36) gm/dL RDW Coeff of Phyllis 12.9 (11.5-15.5) % Plt Count 194 (140-440) K/uL Neut % (Auto) 65.4 (42.0-72.0) % Lymph % (Auto) 20.0 (20-44) % Greenlee % (Auto) 9.9 (0.0-11.0) % Eos % (Auto) 4.0 (0.0-7.0) % Baso % (Auto) 0.7 (0.0-3.0) % Neut # (Auto) 2.90 (1.7-7.0) K/uL Lymph # (Auto) 0.90 (0.90-2.90) K/uL Greenlee # (Auto) 0.40 (0.00-0.90) K/UL Eos # (Auto) 0.20 (0.00-0.50) K/uL Baso # (Auto) 0.00 (0.00-0.30) K/uL Sodium 141 (135-149) mmol/L Potassium 4.0 (3.6-5.1) mmol/L Chloride 105 (96-114) mmol/L Carbon Dioxide 29 (20-32) mmol/L BUN 24 (7-30) mg/dL Creatinine 0.7 (0.5-1.5) mg/dL Estimated Creat Clear 68.54 Estimated GFR 95 ml/min Glucose 80 (60-115) mg/dL Lactate (0.5-1.9) mmol/L Calcium 8.9 (8.4-10.6) mg/dL Magnesium 2.1 (1.5-2.6) mg/dL Total Bilirubin 0.7 (0.1-1.5) mg/dL Direct Bilirubin 0.3 (0.0-0.5) mg/dL AST 34 (12-35) U/L ALT 28 (4-50) U/L Alkaline Phosphatase 82 (40-150) U/L C-Reactive Protein 4.0 H (0.5-1.0) mg/dL NT-Pro-B Natriuret Pep 812 pg/mL Total Protein 7.9 (6.0-8.3) g/dL Albumin 4.1 (3.3-5.0) g/dL TSH (0.270-4.200) uIU/mL POC Troponin I 0.00 L (0.01-0.04) ng/ml 04/20/22 04/20/22 Range/Units 11:54 11:55 WBC (4.50-11.00) K/uL RBC (4.30-5.90) m/uL Hgb (13.5-17.5) gm/dL Hct (37.0-53.0) % MCV (80-100) fL MCH (26-34) pg MCHC (32-36) gm/dL RDW Coeff of Phyllis (11.5-15.5) % Plt Count (140-440) K/uL Neut % (Auto) (42.0-72.0) % Lymph % (Auto) (20-44) % Greenlee % (Auto) (0.0-11.0) % Eos % (Auto) (0.0-7.0) % Baso % (Auto) (0.0-3.0) % Neut # (Auto) (1.7-7.0) K/uL Lymph # (Auto) (0.90-2.90) K/uL Greenlee # (Auto) (0.00-0.90) K/UL Eos # (Auto) (0.00-0.50) K/uL Baso # (Auto) (0.00-0.30) K/uL Sodium (135-149) mmol/L Potassium (3.6-5.1) mmol/L Chloride (96-114) mmol/L Carbon Dioxide (20-32) mmol/L BUN (7-30) mg/dL Creatinine (0.5-1.5) mg/dL Estimated Creat Clear Estimated GFR ml/min Glucose (60-115) mg/dL Lactate 0.9 (0.5-1.9) mmol/L Calcium (8.4-10.6) mg/dL Magnesium (1.5-2.6) mg/dL Total Bilirubin (0.1-1.5) mg/dL Direct Bilirubin (0.0-0.5) mg/dL AST (12-35) U/L ALT (4-50) U/L Alkaline Phosphatase (40-150) U/L C-Reactive Protein (0.5-1.0) mg/dL NT-Pro-B Natriuret Pep pg/mL Total Protein (6.0-8.3) g/dL Albumin (3.3-5.0) g/dL TSH 0.748 (0.270-4.200) uIU/mL POC Troponin I (0.01-0.04) ng/ml Discharge Plan Discharge Clinical Impression: Intermittent lightheadedness, COVID-19 Patient Disposition: Home, Self-Care Condition: Improved Instructions: COVID-19 (Coronavirus Disease 2019) (ED) Additional Instructions: Holter monitor. Recheck with primary care next week. Cardiology follow-up as needed or as previously planned. Return to the ER for significant chest pain, new symptoms such as fainting, high fevers, shortness of breath. Continue current medications. Prescriptions: No Action furosemide 40 mg tablet Label Comments: TAKE 1 TABLET (40 MG) BY MOUTH EVERY MORNING. sennosides [senna] 8.6 mg tablet Label Comments: TAKE 1 TABLET BY MOUTH 2 TIMES DAILY IF NEEDED FOR CONSTIPATION. dofetilide 250 mcg capsule sumatriptan succinate 50 mg tablet PO Label Comments: TAKE 1 TABLET (50 MG) BY MOUTH EVERY 2 HOURS IF NEEDED FOR MIGRAINE. GIVE AT MINIMUM 2HRS APART. MAX DOSE: 200MG PER 24HRS. tramadol 50 mg tablet Label Comments: take 1 tab qhs as needed for RLS rescue therapy. Not to exceed more than 2 nights/week metoprolol succinate 25 mg tablet extended release 24 hr PO warfarin 1 mg tablet Label Comments: TAKE BY MOUTH 2 MG (1 MG X 2) EVERY SUN; 3 MG (1 MG X 3) ALL OTHER DAYS OR DIRECTED metoprolol tartrate 25 mg tablet mirtazapine 7.5 mg tablet pregabalin 25 mg capsule Label Comments: TAKE 1 CAP 3 TIMES PER DAILY. INCREASE TO 2 CAPS NIGHTTIME DOSING IF NEEDED AFTER 1 WEEK (TOTAL DOSING 125 MG AM AND AFTERNOON 150MG AT BEDTIME) pregabalin 100 mg capsule Label Comments: TAKE 1 CAPSULE BY MOUTH THREE TIMES A DAY ferrous gluconate 324 mg (38 mg iron) tablet Label Comments: TAKE 1 TABLET BY MOUTH ONCE DAILY WITH A MEAL. amoxicillin-pot clavulanate 875-125 mg tablet 1 tab PO BID Qty: 10 0RF oxycodone-acetaminophen [Endocet] 5-325 mg tablet 1 - 2 tab PO Q4-6H PRN (Reason: pain) Qty: 14 0RF Follow Up/Referrals: Kiersten Fitch MD [Primary Care Provider] - Stand Alone Forms: [facility] Info Instructions
== END 2022-04-20 14:25 | disposition home or self-care (01) ==
PROVIDERS: Emergency Provider Emergency Medicine; PCP Family Medicine
DX: R42 Dizziness and giddiness (principal); U07.1 COVID-19
CPT/HCPCS: 36415; 71045; 80048; 80076; 83605; 83735; 83880; 84443; 84484; 85025; 86140; 93005; 93225; 93226; 94761; 99284

== ENCOUNTER 2022-05-30 01:54 | Emergency (ER) | payer MEDICARE, OTHER, SELFPAY ==
[2022-05-30] VITALS (21 sets, daily range): BP systolic 98–126; BP diastolic 58–78; PULSE 57–71; RESP 18; TEMP 36.6; O2SAT 97–100
--- NOTE | 2022-05-30 02:20 | CRLHL7_ITS ---
For Patients: As a result of the Cures Act, medical imaging exams and procedure reports are released immediately into your electronic medical record. You may view this report before your referring provider. If you have questions, please contact your health care provider. INDICATION: Short of breath, shortness of breath TECHNIQUE: Chest radiograph 1 view on 2 films COMPARISON: 04/20/2022 FINDINGS: Mediastinum: Previous median sternotomy and coronary artery bypass grafting (CABG) noted. The left atrial appendage ligation clip is noted without change. Mild cardiomegaly is present. Lung: Stable right apical pleural scarring is noted. Both lungs are unremarkable in appearance. No sign of pleural effusion seen. No pneumothorax is identified. Bone and Soft tissue: Unremarkable for age. IMPRESSION: 1. Mild cardiomegaly is present. Dictated by Martinez Samson MD @ 05/30/2022 2:50:52 AM Dictated by: Martinez Samson MD @ 05/30/2022 02:50:56 (Electronically Signed)
[2022-05-30 02:54] LABS: Lactate* 0.8 mmol/L (0.5-1.9)
[2022-05-30 02:55] LABS: Troponin, Point-of-Care* 0.01 ng/ml (0.01-0.04)
[2022-05-30 02:56] LABS: Basophils Percent Auto 0.8 % (0.0-3.0); Eosinophils Percent Auto 2.5 % (0.0-7.0); Hematocrit 39.3 % (37.0-53.0); Hemoglobin* 13.3 gm/dL (13.5-17.5); Lymphocytes Percent Auto 30.4 % (20-44); Mean Corpuscular HGB Conc 34 gm/dL (32-36); Mean Corpuscular Hemoglobin 30 pg (26-34); Mean Corpuscular Volume 90 fL (80-100); Monocytes Percent Auto 10.1 % (0.0-11.0); Neutrophils Percent Auto 56.2 % (42.0-72.0); Platelet Count* 192 K/uL (140-440); Red Blood Count 4.39 m/uL (4.30-5.90); Slide Review Reflex No; White Blood Count* 3.55 K/uL (4.50-11.00)
[2022-05-30 03:13] LABS: Chloride* 108 mmol/L (96-114); Potassium* 3.9 mmol/L (3.6-5.1); Sodium* 140 mmol/L (135-149)
[2022-05-30 03:14] LABS: INR 1.98 (0.91-1.10); Prothrombin Time 23.5 Seconds
[2022-05-30 03:15] LABS: Creatinine* 0.7 mg/dL (0.5-1.5); Estimated Glomerular Filt Rate 95 ml/min
[2022-05-30 03:16] LABS: Blood Urea Nitrogen* 22 mg/dL (7-30); Calcium* 8.9 mg/dL (8.4-10.6); Carbon Dioxide* 28 mmol/L (20-32); Glucose* 85 mg/dL (60-115)
--- NOTE | 2022-05-30 04:04 | ED.GENADULT ---
HPI - General Adult General Chief complaint: Chest Pain Stated complaint: chest pain, shortness of breath Time Seen by Provider: 05/30/22 02:03 Source: patient Mode of arrival: ambulatory Limitations: no limitations History of Present Illness HPI narrative: 77-year-old male coming in today complaining of chest and back pain. Patient states that his pain started over 12 hours ago around lunchtime when he had some anterior chest pain. It lasted several hours and then went away. He states that he has been feeling his heart pound all night. And then about 1 hour ago he developed back pain between his shoulder blades so severe that he could hardly move. Lasted about half an hour and once it subsided he was able to get up and come to the ER. Her breath. He denies any recent illness. Patient states that he has been struggling with controlling his irregular heartbeat. He was switched to flecainide few months ago and was doing well until his dose was decreased. He states that ever since then, despite increasing it back up to 200 mg daily, he continues to have an irregular heartbeat. It seems that his irregular heartbeat is really what has him concerned today Related Data Home Medications Medication Instructions Recorded Confirmed dofetilide 250 mcg capsule mcg 02/20/22 ferrous gluconate 324 mg (38 mg mg 02/20/22 iron) tablet furosemide 40 mg tablet mg 02/20/22 metoprolol succinate 25 mg mg PO 02/20/22 tablet,extended release 24 hr metoprolol tartrate 25 mg tablet mg 02/20/22 mirtazapine 7.5 mg tablet mg 02/20/22 pregabalin 100 mg capsule mg 02/20/22 pregabalin 25 mg capsule mg 02/20/22 sennosides 8.6 mg tablet (senna) mg 02/20/22 sumatriptan succinate 50 mg tablet mg PO 02/20/22 tramadol 50 mg tablet mg 02/20/22 warfarin 1 mg tablet mg 02/20/22 Previous Rx's Medication Instructions Recorded amoxicillin 875 mg-potassium 1 tab PO BID #10 tabs 03/05/22 clavulanate 125 mg tablet oxycodone-acetaminophen 5 mg-325 1 - 2 tab PO Q4-6H PRN pain #14 03/05/22 mg tablet (Endocet) tabs Allergies Allergy/AdvReac Type Severity Reaction Status Date / Time Phenothiazines Allergy Severe Angioedema Verified 03/05/22 02:30 dronedarone [From Multaq] Allergy Verified 03/05/22 02:30 meperidine [From Demerol] Allergy Verified 03/05/22 02:30 morphine Allergy Verified 03/05/22 02:30 promethazine [From Phenergan] Allergy Verified 03/05/22 02:30 Review of Systems Status of ROS: Reports: 10 or more systems reviewed and unremarkable except as noted in History and below [facility] Medical History Anemia Anxiety Degenerative joint disease Hypertension Paroxysmal atrial fibrillation Restless leg Surgical History History of appendectomy History of arthroscopic knee surgery History of back surgery History of cardiac radiofrequency ablation History of cholecystectomy S/P AAA repair Social History Smoking Status: Never smoker Do you use any of these nicotine containing products: None Second hand tobacco smoke exposure: No How often do you have a drink containing alcohol: never How often do you have six or more drinks on one occasion: Never AUDIT-C Alcohol total score: 0 Non-prescribed substance use: denies use service: No Exam Narrative: Exam Narrative: Thin, elderly, well-developed patient in no acute distress. Alert and oriented. Answers questions appropriately. Mood and affect are appropriate. Thoughts are goal oriented and rational. No tangential or magical thinking noted. Patient speaks in full sentences without needing to catch his breath. HEENT: Normocephalic atraumatic. Pupils are equally round reactive to light. Extraocular muscles are intact. Conjunctivae are moist without any icterus noted. Moist mucous membranes. Posterior pharynx is normal. Neck is soft without any lymphadenopathy or thyromegaly. No masses are appreciated. Cardiovascular: Heart is regular rate and rhythm S1 and S2 are present without any murmurs. Lungs: Clear to auscultation bilaterally no wheezes rhonchi or rales are appreciated. Patient takes deep breaths without any discomfort. Abdomen: Soft and nontender nondistended with normal bowel sounds. Extremities: Bilateral lower extremities are without edema. Normal DP and PT pulses. Skin: Well perfused without any obvious rashes. Const: Vital Signs, click to edit/add: Vital Signs - 24 hr 05/30/22 02:07 05/30/22 02:07 05/30/22 02:20 Temperature 97.8 F Pulse Rate Pulse Rate [Right] 71 Respiratory Rate 18 Blood Pressure Blood Pressure [Le ft Upper Arm] 126/78 Pulse Oximetry 100 98 98 Oxygen Delivery Me thod Room Air 05/30/22 02:30 05/30/22 02:31 05/30/22 02:45 Temperature Pulse Rate 57 L 62 57 L Pulse Rate [Right] Respiratory Rate Blood Pressure 99/61 Blood Pressure [Le ft Upper Arm] Pulse Oximetry 98 98 97 Oxygen Delivery Me thod 05/30/22 02:46 05/30/22 03:00 05/30/22 03:01 Temperature Pulse Rate 58 L 58 L 60 Pulse Rate [Right] Respiratory Rate Blood Pressure 101/63 98/58 L Blood Pressure [Le ft Upper Arm] Pulse Oximetry 97 97 97 Oxygen Delivery Me thod 05/30/22 03:15 05/30/22 03:16 05/30/22 03:30 Temperature Pulse Rate 64 60 67 Pulse Rate [Right] Respiratory Rate Blood Pressure 103/59 L Blood Pressure [Le ft Upper Arm] Pulse Oximetry 98 98 100 Oxygen Delivery Me thod 05/30/22 03:33 05/30/22 03:34 05/30/22 03:45 Temperature Pulse Rate 63 63 62 Pulse Rate [Right] Respiratory Rate Blood Pressure 112/61 Blood Pressure [Le ft Upper Arm] Pulse Oximetry 98 99 100 Oxygen Delivery Me thod 05/30/22 03:48 05/30/22 04:00 05/30/22 04:01 Temperature Pulse Rate 68 70 62 Pulse Rate [Right] Respiratory Rate Blood Pressure 112/73 106/59 L Blood Pressure [Le ft Upper Arm] Pulse Oximetry 100 100 100 Oxygen Delivery Me thod 05/30/22 04:15 05/30/22 04:16 05/30/22 04:30 Temperature Pulse Rate 66 64 63 Pulse Rate [Right] Respiratory Rate Blood Pressure 120/68 Blood Pressure [Le ft Upper Arm] Pulse Oximetry 99 98 99 Oxygen Delivery Me thod 05/30/22 04:32 Temperature Pulse Rate 61 Pulse Rate [Right] Respiratory Rate Blood Pressure 119/67 Blood Pressure [Le ft Upper Arm] Pulse Oximetry 98 Oxygen Delivery Me thod Course Course Hospital Course: EKG, read by me, shows normal sinus rhythm, first-degree AV block with premature supraventricular complexes, left axis deviation and an incomplete right bundle-branch block. Labs were unremarkable Serial troponins unremarkable Repeat EKG unchanged He remained asymptomatic from a pain standpoint. Vital Signs Vital signs: Initial Vital Signs Temperature 97.8 F 05/30/22 02:07 Temperature Source Temporal Artery Scan 05/30/22 02:07 Pulse Rate 71 05/30/22 02:07 Pulse Rhythm 05/30/22 02:07 Respiratory Rate 18 05/30/22 02:07 Blood Pressure 126/78 05/30/22 02:07 Blood Pressure Mean 94 05/30/22 02:07 Pulse Oximetry 100 05/30/22 02:07 Oxygen Delivery Method 05/30/22 02:07 Vital Signs Temperature 97.8 F 05/30/22 02:07 Pulse Rate 71 05/30/22 02:07 Respiratory Rate 18 05/30/22 02:07 Blood Pressure 126/78 05/30/22 02:07 Pulse Oximetry 100 05/30/22 02:07 Oxygen Delivery Method 05/30/22 02:07 Temperature 97.8 F 05/30/22 02:07 Pulse Rate 61 05/30/22 04:32 Respiratory Rate 18 05/30/22 02:07 Blood Pressure 119/67 05/30/22 04:32 Pulse Oximetry 98 05/30/22 04:32 Oxygen Delivery Method 05/30/22 02:07 Medical Decision Making MDM Narrative Medical decision making narrative: 77-year-old male with an episode of back pain, anxiety and chronic palpitations. I see no evidence of a cardiac event today. Differential diagnosis considered included PE, aortic dissection, pneumonia. Give history, exam and labs I do not feel that these things are likely. Medical Records Medical records reviewed: Yes I reviewed the patient's medical records Lab Data Lab results reviewed: Yes I reviewed the patient's lab results Labs: Lab Results 05/30/22 05/30/22 05/30/22 Range/Units 02:21 02:45 02:45 WBC 3.55 L (4.50-11.00) K/uL RBC 4.39 (4.30-5.90) m/uL Hgb 13.3 L (13.5-17.5) gm/dL Hct 39.3 (37.0-53.0) % MCV 90 (80-100) fL MCH 30 (26-34) pg MCHC 34 (32-36) gm/dL RDW Coeff of Phyllis 13.0 (11.5-15.5) % Plt Count 192 (140-440) K/uL Neut % (Auto) 56.2 (42.0-72.0) % Lymph % (Auto) 30.4 (20-44) % Gillespie % (Auto) 10.1 (0.0-11.0) % Eos % (Auto) 2.5 (0.0-7.0) % Baso % (Auto) 0.8 (0.0-3.0) % Neut # (Auto) 2.00 (1.7-7.0) K/uL Lymph # (Auto) 1.10 (0.90-2.90) K/uL Gillespie # (Auto) 0.40 (0.00-0.90) K/UL Eos # (Auto) 0.10 (0.00-0.50) K/uL Baso # (Auto) 0.00 (0.00-0.30) K/uL INR 1.98 H (0.91-1.10) Sodium (135-149) mmol/L Potassium (3.6-5.1) mmol/L Chloride (96-114) mmol/L Carbon Dioxide (20-32) mmol/L BUN (7-30) mg/dL Creatinine (0.5-1.5) mg/dL Estimated GFR ml/min Glucose (60-115) mg/dL Lactate (0.5-1.9) mmol/L Calcium (8.4-10.6) mg/dL POC Troponin I 0.01 (0.01-0.04) ng/ml 05/30/22 05/30/22 05/30/22 Range/Units 02:45 02:45 04:30 WBC (4.50-11.00) K/uL RBC (4.30-5.90) m/uL Hgb (13.5-17.5) gm/dL Hct (37.0-53.0) % MCV (80-100) fL MCH (26-34) pg MCHC (32-36) gm/dL RDW Coeff of Phyllis (11.5-15.5) % Plt Count (140-440) K/uL Neut % (Auto) (42.0-72.0) % Lymph % (Auto) (20-44) % Gillespie % (Auto) (0.0-11.0) % Eos % (Auto) (0.0-7.0) % Baso % (Auto) (0.0-3.0) % Neut # (Auto) (1.7-7.0) K/uL Lymph # (Auto) (0.90-2.90) K/uL Gillespie # (Auto) (0.00-0.90) K/UL Eos # (Auto) (0.00-0.50) K/uL Baso # (Auto) (0.00-0.30) K/uL INR (0.91-1.10) Sodium 140 (135-149) mmol/L Potassium 3.9 (3.6-5.1) mmol/L Chloride 108 (96-114) mmol/L Carbon Dioxide 28 (20-32) mmol/L BUN 22 (7-30) mg/dL Creatinine 0.7 (0.5-1.5) mg/dL Estimated GFR 95 ml/min Glucose 85 (60-115) mg/dL Lactate 0.8 (0.5-1.9) mmol/L Calcium 8.9 (8.4-10.6) mg/dL POC Troponin I 0.00 L (0.01-0.04) ng/ml Imaging Data Chest x-ray: Attestation: I have reviewed the pertinent imaging results. Radiologist's impression: TECHNIQUE: Chest radiograph 1 view on 2 films COMPARISON: 04/20/2022 FINDINGS: Mediastinum: Previous median sternotomy and coronary artery bypass grafting (CABG) noted. The left atrial appendage ligation clip is noted without change. Mild cardiomegaly is present. Lung: Stable right apical pleural scarring is noted. Both lungs are unremarkable in appearance. No sign of pleural effusion seen. No pneumothorax is identified. Bone and Soft tissue: Unremarkable for age. IMPRESSION: 1. Mild cardiomegaly is present. ECG Data Attestation: I personally reviewed and interpreted this ECG as follows: Discharge Plan Discharge Clinical Impression: Heart palpitations, Back pain, Atypical chest pain Patient Disposition: Home, Self-Care Condition: Stable Additional Instructions: Follow-up with cardiology as scheduled Prescriptions: No Action furosemide 40 mg tablet Label Comments: TAKE 1 TABLET (40 MG) BY MOUTH EVERY MORNING. sennosides [senna] 8.6 mg tablet Label Comments: TAKE 1 TABLET BY MOUTH 2 TIMES DAILY IF NEEDED FOR CONSTIPATION. dofetilide 250 mcg capsule sumatriptan succinate 50 mg tablet PO Label Comments: TAKE 1 TABLET (50 MG) BY MOUTH EVERY 2 HOURS IF NEEDED FOR MIGRAINE. GIVE AT MINIMUM 2HRS APART. MAX DOSE: 200MG PER 24HRS. tramadol 50 mg tablet Label Comments: take 1 tab qhs as needed for RLS rescue therapy. Not to exceed more than 2 nights/week metoprolol succinate 25 mg tablet extended release 24 hr PO warfarin 1 mg tablet Label Comments: TAKE BY MOUTH 2 MG (1 MG X 2) EVERY SUN; 3 MG (1 MG X 3) ALL OTHER DAYS OR DIRECTED metoprolol tartrate 25 mg tablet mirtazapine 7.5 mg tablet pregabalin 25 mg capsule Label Comments: TAKE 1 CAP 3 TIMES PER DAILY. INCREASE TO 2 CAPS NIGHTTIME DOSING IF NEEDED AFTER 1 WEEK (TOTAL DOSING 125 MG AM AND AFTERNOON 150MG AT BEDTIME) pregabalin 100 mg capsule Label Comments: TAKE 1 CAPSULE BY MOUTH THREE TIMES A DAY ferrous gluconate 324 mg (38 mg iron) tablet Label Comments: TAKE 1 TABLET BY MOUTH ONCE DAILY WITH A MEAL. amoxicillin-pot clavulanate 875-125 mg tablet 1 tab PO BID Qty: 10 0RF oxycodone-acetaminophen [Endocet] 5-325 mg tablet 1 - 2 tab PO Q4-6H PRN (Reason: pain) Qty: 14 0RF Follow Up/Referrals: Kiersten Fitch MD [Primary Care Provider] - Stand Alone Forms: [facility] Info Instructions
== END 2022-05-30 05:05 | disposition home or self-care (01) ==
PROVIDERS: Emergency Provider Family Medicine; PCP Family Medicine
DX: R00.2 Palpitations (principal); M54.9 Dorsalgia, unspecified; R07.89 Other chest pain
CPT/HCPCS: 36415; 71045; 80048; 83605; 84484; 85025; 85610; 93005; 94761; 99284; 99285

== ENCOUNTER 2022-10-16 14:22 | Emergency (ER) | payer MEDICARE, OTHER, SELFPAY ==
[2022-10-16] VITALS (31 sets, daily range): BP systolic 95–164; BP diastolic 63–87; PULSE 57–73; RESP 18; TEMP 36.8; O2SAT 91–100; BMI 23.1
--- NOTE | 2022-10-16 15:03 | CRLHL7_ITS ---
For Patients: As a result of the Century Cures Act, medical imaging exams and procedure reports are released immediately into your electronic medical record. You may view this report before your referring provider. If you have questions, please contact your health care provider. HISTORY: Headache. TECHNIQUE: CT brain without contrast. COMPARISON: CT brain 04/17/2017. FINDINGS: No acute intracranial hemorrhage. No extra-axial collection. No mass effect or midline shift. Mild generalized brain volume loss. Basilar cisterns are patent. Mild patchy hypodensity in the white matter likely from chronic small vessel ischemic changes. Calvarium is intact. Small amount of layering fluid in the right sphenoid sinus. Paranasal sinuses and mastoid air cells are otherwise clear. Orbits are unremarkable. IMPRESSION: No acute intracranial abnormality. Please note that all CT scans at this facility use dose modulation, iterative reconstruction, and/or weight-based dosing when appropriate to reduce radiation dose to as low as reasonably achievable. Dictated by Jaxson Granados MD @ 10/16/2022 3:48:53 PM (Electronically Signed)
[2022-10-16 15:04] LABS: Troponin, Point-of-Care* 0.01 ng/ml (0.01-0.04)
[2022-10-16] MEDS: ACETAMINOPHEN 500 MG TABLET 1000 MG PO (15:08)
[2022-10-16] MEDS: 0.9 % SODIUM CHLORIDE 1000 ml 1,000 ML IV ×2 (15:09→16:50)
[2022-10-16] MEDS: LORazepam 2 MG/ML inj 0.5 MG IVP (15:09)
[2022-10-16 15:10] LABS: Basophils Absolute Auto 0.01 K/uL (0.00-0.30); Basophils Percent Auto 0.1 % (0.0-3.0); Eosinophils Absolute Auto 0.02 K/uL (0.00-0.50); Eosinophils Percent Auto 0.3 % (0.0-7.0); Hematocrit 40.9 % (37.0-53.0); Hemoglobin* 13.7 gm/dL (13.5-17.5); Immature Granulocytes Abs Auto 0.01 K/uL (0.00-0.30); Immature Granulocytes Pct Auto 0.1 %; Lymphocytes Percent Auto 13.3 % (20-44); Mean Corpuscular HGB Conc 34 gm/dL (32-36); Mean Corpuscular Hemoglobin 30 pg (26-34); Mean Corpuscular Volume 91 fL (80-100); Monocytes Percent Auto 5.7 % (0.0-11.0); Neutrophils Percent Auto 80.5 % (42.0-72.0); Platelet Count* 195 K/uL (140-440); RDW Coefficient of Variation % 12.7 % (11.5-15.5); Red Blood Count 4.52 m/uL (4.30-5.90); White Blood Count* 7.73 K/uL (4.50-11.00)
[2022-10-16 15:11] LABS: Slide Review Reflex No
--- OUTSIDE RECORDS SUMMARY | 2022-10-16 15:14 | XMS_ITS | Continuity of Care Document ---
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 Name Role Phone David GEORGE, Robert Unavailable Unavailable Allergies, Adverse Reactions, Alerts Substance Reaction Status Criticality MEPERIDINE HCL Active No Informatio n morphine Active No Information Procedures Procedure Date [place] [place]patient visit,est, low 2007 Office/outpatient visit,est, low 2007 X-ray exam of total spine Office/outpatient visit,est, low 2007 Office/outpatient visit,est, low 2006 Office consultation, moderate-high X-ray exam lwr spine, min 4 views Advance Directives Directive Yes / No Effective Date File Name No Information Encounters Encounter Description Practice Location Reason(s) For Visit Diagnoses Date Provider Providers Copied on Encounter [facility], [address], [place], [place], [id number], [place] tel:[phone] [facility] No Information 6 Mehbod Amir. [facility], [address] [place] [address] [address], [place], [place], [id number] , [place]. tel:[phone] Office/Outpat ient Visit,[facility] [place] [facility], [address], [place], [address], [place] tel:[phone] [facility] 4 Mehbod Amir. [facility], [address], [place], [place], [id number] , [place]. tel:[phone] Referring Provider: Aravind Morales, Signifyd [facility] [address], [place], [address]. tel:[phone] Office/outpat ient visit,est, low Z [facility], [address], [place], [address], [place] tel:[phone] [facility] No Information Apr-0 1-200 8 Mehbod Amir. [facility], [address], [place], [place], [id number] , [place]. tel:[phone] Referring Provider: Aravind Morales, Sign[facility]d [facility] [address], [place], [address]. tel:[phone] Office/outpat ient visit,est, low Z [facility], [address], [place], [address], [place] tel:[phone] [facility] No Information 0-200 8 Mehbod Amir. [facility], [address], [place], [place], [id number] , [place]. [phone] Referring Provider: Aravind Morales, Sign[facility] [address] , [place], [address]. tel:[phone] Office/outpat ient visit,est, low Z [facility], [address], [place], [address], [place] tel:[phone] [facility] No Information 2 8-200 8 Mehbod Amir. [facility], [address], [place], [place], [id number] , [place]. [phone] Referring Provider: Aravind Morales, [address], [place], [address]. tel:[phone] Office/outpat ient visit,est, low Z [facility], [address], [place], [address], [place] tel:[phone] [facility] No Information 200 7 Mehbod Amir. [facility], [address], [place], [place], [id number] , . tel:[phone] Referring Provider: Aravind Morales, [address], [place], [address]. tel:[phone] Office consultation, moderate-high Z [facility], [address], [place], [address], tel:[phone] [facility] No Information 200 7 Mehbod Amir. [facility], [address] [place] [address] [address], [place], [place], [id number] , . tel:[phone] Referring Provider: Aravind Morales, [address], [place], [address]. tel:[phone] Family History Family Member Type Diagnosis Age At Onset No Information Payers Payer name Insurance type Covered green party ID Authoriza tion(s) No Information Social History Type Description Quantity Date Captured Comments Sex Male Smoking Status No Information Chief Complaint And Reason For Visit No Information Reason For Referral Reason For Referral No Information Plan Of Treatment Date Type Action Status No Information History Of Present Illness Encounter Date Complaint History Of Prese nt Illness No Information Functional Status Date Functional Assessmen t No Information Instructions Date Instruction Additional Infor mation No Information Assessments Type Assessment Date No Information Patient Care Teams Name Effective Dates (start - stop) Status Members No Information
[2022-10-16 15:29] LABS: Chloride* 103 mmol/L (96-114)
[2022-10-16 15:30] LABS: INR 2.45 (0.91-1.10); Prothrombin Time 27.8 Seconds; Sodium* 135 mmol/L (135-149)
[2022-10-16 15:31] LABS: Partial Thromboplastin Time* 40 Seconds (23-33)
[2022-10-16 15:32] LABS: Blood Urea Nitrogen* 23 mg/dL (7-30); Carbon Dioxide* 26 mmol/L (20-32); Creatinine* 1.3 mg/dL (0.5-1.5); Est. Creatinine Clearance* 52.73; Estimated Glomerular Filt Rate 57 ml/min
[2022-10-16 15:33] LABS: Calcium* 9.6 mg/dL (8.4-10.6); Glucose* 95 mg/dL (60-115)
[2022-10-16 15:35] LABS: Ethanol* < 0.01 % (0.01-0.03)
[2022-10-16 15:41] LABS: NT Pro B Type NatriureticPept* 1250 pg/mL
--- NOTE | 2022-10-16 15:57 | ED.HA ---
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 This is also coupled with some chest discomfort that he had at that time. He felt he could not stand up, was able to finish this on that he was singing, but felt poorly afterwards. He felt the room was moving around her spinning. He says he this is characteristic of his migraines, although this is seemingly worse. He also had chest discomfort which she said was a new finding with this. Denies really eating anything other than 1 small helping a porridge this morning, denies use of alcohol, does have history of atrial fibrillation, and he is trialing off of flecainide for this. He notes previous aortic root repair. MD elicited complaint: headache and migraine Location: neck and down into neck Severity: moderate Quality & Timing: aching, throbbing and first headache Exacerbating factors: none Relieving factors: nothing Context: occurred with exertion/activity Associated symptoms: none and lightheadedness Treatments prior to arrival: none Related Data Home Medications Medication Instructions Recorded Confirmed dofetilide 250 mcg capsule mcg 02/20/22 ferrous gluconate 324 mg (38 mg mg 02/20/22 iron) tablet furosemide 40 mg tablet mg 02/20/22 metoprolol succinate 25 mg mg PO 02/20/22 tablet,extended release 24 hr metoprolol tartrate 25 mg tablet mg 02/20/22 mirtazapine 7.5 mg tablet mg 02/20/22 pregabalin 100 mg capsule mg 02/20/22 pregabalin 25 mg capsule mg 02/20/22 sennosides 8.6 mg tablet (senna) mg 02/20/22 sumatriptan succinate 50 mg tablet mg PO 02/20/22 tramadol 50 mg tablet mg 02/20/22 warfarin 1 mg tablet mg 02/20/22 Previous Rx's Medication Instructions Recorded amoxicillin 875 mg-potassium 1 tab PO BID #10 tabs 11/04/22 clavulanate 125 mg tablet oxycodone-acetaminophen 5 mg-325 1 - 2 tab PO Q4-6H PRN pain #14 03/05/22 mg tablet (Endocet) tabs Allergies Allergy/AdvReac Type Severity Reaction Status Date / Time Phenothiazines Allergy Severe Angioedema Verified 10/16/22 16:37 dronedarone [From Multaq] Allergy Verified 10/16/22 16:37 meperidine [From Demerol] Allergy Verified 10/16/22 16:37 morphine Allergy Verified 10/16/22 16:37 promethazine [From Phenergan] Allergy Verified 10/16/22 16:37 Review of Systems Status of ROS: Reports: 10 or more systems reviewed and unremarkable except as noted in History and below PFSH PFS Medical History Hypertension ?I10 - Essential (primary) hypertension (ICD-10) Degenerative joint disease ?M19.90 - Unspecified osteoarthritis, unspecified site (ICD-10) Anemia ?D64.9 - Anemia, unspecified (ICD-10) Restless leg ?G25.81 - Restless legs syndrome (ICD-10) Anxiety ?F41.9 - Anxiety disorder, unspecified (ICD-10) Paroxysmal atrial fibrillation ?I48.0 - Paroxysmal atrial fibrillation (ICD-10) Surgical History History of arthroscopic knee surgery ?Z98.890 - Other specified postprocedural states (ICD-10) History of back surgery ?Z98.890 - Other specified postprocedural states (ICD-10) History of cardiac radiofrequency ablation ?Z98.890 - Other specified postprocedural states (ICD-10) History of appendectomy ?Z90.49 - Acquired absence of other specified parts of digestive tract (ICD-10) History of cholecystectomy ?Z90.49 - Acquired absence of other specified parts of digestive tract (ICD-10) S/P AAA repair ?Z98.890 - Other specified postprocedural states (ICD-10) ?Z86.79 - Personal history of other diseases of the circulatory system (ICD-10) Social History Smoking Status: Never smoker Do you use any of these nicotine containing products: None Second hand tobacco smoke exposure: No How often do you have a drink containing alcohol: never How often do you have six or more drinks on one occasion: Never AUDIT-C Alcohol total score: 0 Non-prescribed substance use: denies use service: No Exam Narrative: Exam Narrative: Patient is speaking normally, no problem with slurring words, oriented x3. Head eyes ears nose and throat exam show equal pupils, no scleral icterus, extraocular muscles are normal, no facial droop, speech is normal, trachea normal and midline. Thyroid normal midline palpable not enlarged. Chest shows symmetrical rise bilaterally, normal auscultation with no wheezes, no increased work of breathing, no overt bruising or lesions seen, no tenderness is noted on auscultation. Heart sounds normal with no S3-S4 no murmurs clicks or gallops. Abdomen shows no obvious masses or hepatosplenomegaly, no organomegaly, bowel sounds are normal in all quadrants. No tenderness is noted also in all quadrants. Upper and lower extremities show normal power, normal range of motion, pulses are normal, sensations normal, fine motor movements are normal, pelvis is stable to rocking. Cervical spine shows normal range of motion, and palpably not tender. Thoracic spine shows normal range of motion, and palpably not tender, lumbar spine shows no tenderness to palpation percussion and is otherwise normal range of motion. Skin shows no rashes, petechiae or eccymosis. Patient did become more vertiginous when I sat him up removed his head. He does have horizontal nystagmus, cranial nerves 3-12 are otherwise normal, he moves extremities independently in fine both the proximal distal muscle strength are normal. And symmetrical. Given the multitude of his complaints, from chest pain to vertigo and headache. I had a hard time differentiating whether this as he is also 4 hours plus out from when this occurred. I think to do a head CT to rule out a bleed and then like is CTA CT of his head would be appropriate and troponins. He will need to be signed over to the oncoming physician. Will give some Ativan for both his anxiety, and also to have some vestibular stabilization along with fluids. Const: Vital Signs, click to edit/add: Vital Signs - 24 hr 10/16/22 14:28 10/16/22 14:39 10/16/22 14:42 Temperature 98.2 F Pulse Rate 60 Pulse Rate [Right Pulse Oximeter] 73 Respiratory Rate 18 Blood Pressure 134/78 Blood Pressure [Ri ght Upper Arm] 95/63 Pulse Oximetry 99 100 Oxygen Delivery Me thod Room Air 10/16/22 14:43 10/16/22 14:45 10/16/22 15:00 Temperature Pulse Rate 61 60 61 Pulse Rate [Right Pulse Oximeter] Respiratory Rate Blood Pressure 128/74 Blood Pressure [Ri ght Upper Arm] Pulse Oximetry 98 99 97 Oxygen Delivery Me thod 10/16/22 15:02 10/16/22 15:25 10/16/22 15:30 Temperature Pulse Rate 63 61 59 L Pulse Rate [Right Pulse Oximeter] Respiratory Rate Blood Pressure 126/71 Blood Pressure [Ri ght Upper Arm] Pulse Oximetry 93 99 92 Oxygen Delivery Me thod 10/16/22 15:32 10/16/22 15:45 10/16/22 16:00 Temperature Pulse Rate 61 63 63 Pulse Rate [Right Pulse Oximeter] Respiratory Rate Blood Pressure 111/72 Blood Pressure [Ri ght Upper Arm] Pulse Oximetry 93 91 96 Oxygen Delivery Me thod 10/16/22 16:02 10/16/22 16:03 10/16/22 16:15 Temperature Pulse Rate 63 63 61 Pulse Rate [Right Pulse Oximeter] Respiratory Rate Blood Pressure 134/73 Blood Pressure [Ri ght Upper Arm] Pulse Oximetry 96 95 98 Oxygen Delivery Me thod 10/16/22 16:30 10/16/22 16:33 10/16/22 16:59 Temperature Pulse Rate 59 L 62 58 L Pulse Rate [Right Pulse Oximeter] Respiratory Rate Blood Pressure 139/76 Blood Pressure [Ri ght Upper Arm] Pulse Oximetry 99 94 99 Oxygen Delivery Me thod 10/16/22 17:00 10/16/22 17:02 10/16/22 17:15 Temperature Pulse Rate 58 L 59 L 60 Pulse Rate [Right Pulse Oximeter] Respiratory Rate Blood Pressure 159/81 H Blood Pressure [Ri ght Upper Arm] Pulse Oximetry 99 97 95 Oxygen Delivery Me thod 10/16/22 17:30 10/16/22 17:32 10/16/22 17:45 Temperature Pulse Rate 57 L 57 L 60 Pulse Rate [Right Pulse Oximeter] Respiratory Rate Blood Pressure 154/76 H Blood Pressure [Ri ght Upper Arm] Pulse Oximetry 99 98 96 Oxygen Delivery Me thod 10/16/22 18:00 10/16/22 18:03 Temperature Pulse Rate 61 60 Pulse Rate [Right Pulse Oximeter] Respiratory Rate Blood Pressure 163/87 H Blood Pressure [Ri ght Upper Arm] Pulse Oximetry 96 96 Oxygen Delivery Me thod Course Course Hospital Course: Emmy -- inherited Mr. English at change of shift. on re-evaluation doing markedly better. Pressures have improved. Has also re-entered normal sinus rhythm. Feeling just a little bit woozy yet. He has received a couple L of normal saline. I suspect more of variation of his headaches and vasovagal type event. CT of head along with CTA of head and neck were unremarkable other than some chronic microvascular changes noted. I did review these images myself as well. Discussed all findings and events again with Mr. English. Vital Signs Vital signs: Initial Vital Signs Temperature 98.2 F 10/16/22 14:28 Temperature Source Temporal Artery Scan 10/16/22 14:28 Pulse Rate 73 10/16/22 14:28 Respiratory Rate 18 10/16/22 14:28 Blood Pressure 95/63 10/16/22 14:28 Blood Pressure Mean 73 10/16/22 14:28 Blood Pressure Position Sitting 10/16/22 14:28 Pulse Oximetry 99 10/16/22 14:28 Oxygen Delivery Method Room Air 10/16/22 14:28 Vital Signs Temperature 98.2 F 10/16/22 14:28 Pulse Rate 73 10/16/22 14:28 Respiratory Rate 18 10/16/22 14:28 Blood Pressure 95/63 10/16/22 14:28 Pulse Oximetry 99 10/16/22 14:28 Oxygen Delivery Method Room Air 10/16/22 14:28 Temperature 98.2 F 10/16/22 14:28 Pulse Rate 60 10/16/22 19:02 Respiratory Rate 18 10/16/22 14:28 Blood Pressure 156/84 H 10/16/22 19:02 Pulse Oximetry 97 10/16/22 19:02 Oxygen Delivery Method Room Air 10/16/22 14:28 MDM - Headache MDM Narrative Medical decision making narrative: Life-threatening differential diagnosis include subarachnoid hemorrhage, meningitis, encephalitis, carbon monoxide poisoning, and intracerebral hemorrhage. Other differential diagnosis include but not limited to migraine, cluster headache, tension headache, IRON BENDER vasculitis, mass lesion, temporal arteritis, click acute closed angle glaucoma, septal and trigeminal neuralgia, sinusitis, closed head injury, and stroke Life-threatening differential diagnosis considered include, CVA, other differential diagnosis include BPPV, labyrinthitis, Meniere's disease, vestibular neuronitis, migraine, multiple sclerosis, otitis media, viral syndrome as well as other etiologies During the evaluation of this patient I considered multiple differential diagnosis is. The life-threatening differential diagnosis include coronary disease/OK, pulmonary embolism, pneumothorax, pneumonia, and aortic dissection. Other differential diagnosis included but were not limited to pericarditis, myocarditis, chest wall pain, GERD, esophageal rupture, rib fracture contusion, pleurisy, as well as other etiologies. Medical Records Attestation: I reviewed the patient's medical records. Lab Data Attestation: I reviewed the patient's lab results. Labs: Lab Results 10/16/22 10/16/22 10/16/22 Range/Units 14:40 15:00 15:15 WBC 7.73 (4.50-11.00) K/uL RBC 4.52 (4.30-5.90) m/uL Hgb 13.7 (13.5-17.5) gm/dL Hct 40.9 (37.0-53.0) % MCV 91 (80-100) fL MCH 30 (26-34) pg MCHC 34 (32-36) gm/dL RDW Coeff of Phyllis 12.7 (11.5-15.5) % Plt Count 195 (140-440) K/uL Neut % (Auto) 80.5 H (42.0-72.0) % Lymph % (Auto) 13.3 L (20-44) % Schleicher % (Auto) 5.7 (0.0-11.0) % Eos % (Auto) 0.3 (0.0-7.0) % Baso % (Auto) 0.1 (0.0-3.0) % Neut # (Auto) 6.20 (1.7-7.0) K/uL Lymph # (Auto) 1.00 (0.90-2.90) K/uL Schleicher # (Auto) 0.40 (0.00-0.90) K/UL Eos # (Auto) 0.02 (0.00-0.50) K/uL Baso # (Auto) 0.01 (0.00-0.30) K/uL INR 2.45 H (0.91-1.10) APTT 40 H (23-33) Seconds Sodium 135 (135-149) mmol/L Potassium 4.0 (3.6-5.1) mmol/L Chloride 103 (96-114) mmol/L Carbon Dioxide 26 (20-32) mmol/L BUN 23 (7-30) mg/dL Creatinine 1.3 (0.5-1.5) mg/dL Estimated Creat Clear 52.73 Estimated GFR 57 ml/min Glucose 95 (60-115) mg/dL Calcium 9.6 (8.4-10.6) mg/dL NT-Pro-B Natriuret Pep 1250 pg/mL Ethyl Alcohol < 0.01 L (0.01-0.03) % SARS-CoV-2 (PCR) Negative SARS-CoV-2 (Negative) Influenza Type A (PCR) Negative PCR FLU A (Negative) Influenza Type B (PCR) Negative PCR FLU B (Negative) RSV (PCR) Negative PCR RSV (Negative) POC Troponin I 0.01 (0.01-0.04) ng/ml 10/16/22 Range/Units 17:00 WBC (4.50-11.00) K/uL RBC (4.30-5.90) m/uL Hgb (13.5-17.5) gm/dL Hct (37.0-53.0) % MCV (80-100) fL MCH (26-34) pg MCHC (32-36) gm/dL RDW Coeff of Phyllis (11.5-15.5) % Plt Count (140-440) K/uL Neut % (Auto) (42.0-72.0) % Lymph % (Auto) (20-44) % Schleicher % (Auto) (0.0-11.0) % Eos % (Auto) (0.0-7.0) % Baso % (Auto) (0.0-3.0) % Neut # (Auto) (1.7-7.0) K/uL Lymph # (Auto) (0.90-2.90) K/uL Schleicher # (Auto) (0.00-0.90) K/UL Eos # (Auto) (0.00-0.50) K/uL Baso # (Auto) (0.00-0.30) K/uL INR (0.91-1.10) APTT (23-33) Seconds Sodium (135-149) mmol/L Potassium (3.6-5.1) mmol/L Chloride (96-114) mmol/L Carbon Dioxide (20-32) mmol/L BUN (7-30) mg/dL Creatinine (0.5-1.5) mg/dL Estimated Creat Clear Estimated GFR ml/min Glucose (60-115) mg/dL Calcium (8.4-10.6) mg/dL NT-Pro-B Natriuret Pep pg/mL Ethyl Alcohol (0.01-0.03) % SARS-CoV-2 (PCR) (Negative) Influenza Type A (PCR) (Negative) Influenza Type B (PCR) (Negative) RSV (PCR) (Negative) POC Troponin I 0.01 (0.01-0.04) ng/ml Discharge Plan Discharge Clinical Impression: Headache, Vertigo, Dehydration Patient Disposition: Home w/ Parent or Adult Condition: Improved Instructions: Acute Headache (ED) Additional Instructions: Get quality and regular sleep. Take care in transitions Stay well-hydrated. Depending on how frequent you are having these headaches, might be good to check in with your neurologist again. I would follow up with primary care within the next couple of weeks. Prescriptions: No Action furosemide 40 mg tablet Patient Comments: TAKE 1 TABLET (40 MG) BY MOUTH EVERY MORNING. sennosides [senna] 8.6 mg tablet Patient Comments: TAKE 1 TABLET BY MOUTH 2 TIMES DAILY IF NEEDED FOR CONSTIPATION. dofetilide 250 mcg capsule sumatriptan succinate 50 mg tablet PO Patient Comments: TAKE 1 TABLET (50 MG) BY MOUTH EVERY 2 HOURS IF NEEDED FOR MIGRAINE. GIVE AT MINIMUM 2HRS APART. MAX DOSE: 200MG PER 24HRS. tramadol 50 mg tablet Patient Comments: take 1 tab qhs as needed for RLS rescue therapy. Not to exceed more than 2 nights/week metoprolol succinate 25 mg tablet extended release 24 hr PO warfarin 1 mg tablet Patient Comments: TAKE BY MOUTH 2 MG (1 MG X 2) EVERY SUN; 3 MG (1 MG X 3) ALL OTHER DAYS OR DIRECTED metoprolol tartrate 25 mg tablet mirtazapine 7.5 mg tablet pregabalin 25 mg capsule Patient Comments: TAKE 1 CAP 3 TIMES PER DAILY. INCREASE TO 2 CAPS NIGHTTIME DOSING IF NEEDED AFTER 1 WEEK (TOTAL DOSING 125 MG AM AND AFTERNOON 150MG AT BEDTIME) pregabalin 100 mg capsule Patient Comments: TAKE 1 CAPSULE BY MOUTH THREE TIMES A DAY ferrous gluconate 324 mg (38 mg iron) tablet Patient Comments: TAKE 1 TABLET BY MOUTH ONCE DAILY WITH A MEAL. amoxicillin-pot clavulanate 875-125 mg tablet 1 tab PO BID Qty: 10 0RF oxycodone-acetaminophen [Endocet] 5-325 mg tablet 1 - 2 tab PO Q4-6H PRN (Reason: pain) Qty: 14 0RF Follow Up/Referrals: Kiersten Fitch MD [Primary Care Provider] - Stand Alone Forms: [facility] Info Instructions
[2022-10-16 15:58] LABS: PCR FLU A Negative PCR FLU A (Negative); PCR FLU B Negative PCR FLU B (Negative); PCR RSV Negative PCR RSV (Negative)
[2022-10-16 15:59] LABS: SARS PCR* Negative SARS-CoV-2 (Negative)
--- NOTE | 2022-10-16 16:27 | CRLHL7_ITS ---
For Patients: As a result of the Century Cures Act, medical imaging exams and procedure reports are released immediately into your electronic medical record. You may view this report before your referring provider. If you have questions, please contact your health care provider. INDICATION: Headache, neck pain. TECHNIQUE: CTA neck with contrast bolus tracking, 3D angiographic rendering using maximum intensity projection (MIP) and images permanently archived. FINDINGS: There is no significant carotid artery stenosis or dissection. There is no significant vertebral artery stenosis or dissection. The soft tissues of the neck are within normal limits. The cervical spine is in normal alignment. Degenerative changes are noted in the cervical spine. IMPRESSION: No significant carotid or vertebral artery stenosis or dissection. Please note that all CT scans at this facility use dose modulation, iterative reconstruction, and/or weight-based dosing when appropriate to reduce radiation dose to as low as reasonably achievable. Dictated by Sam Caballero MD @ 10/16/2022 8:42:29 PM (Electronically Signed)
--- NOTE | 2022-10-16 16:27 | CRLHL7_ITS ---
For Patients: As a result of the Century Cures Act, medical imaging exams and procedure reports are released immediately into your electronic medical record. You may view this report before your referring provider. If you have questions, please contact your health care provider. INDICATION: Headache, neck pain. TECHNIQUE: CTA head with contrast bolus tracking, 3D angiographic rendering using maximum intensity projection (MIP) and images permanently archived. FINDINGS: There is normal opacification of the intracranial vasculature. There is no large vessel occlusion. No aneurysm is identified. IMPRESSION: Unremarkable head CTA. Please note that all CT scans at this facility use dose modulation, iterative reconstruction, and/or weight-based dosing when appropriate to reduce radiation dose to as low as reasonably achievable. Dictated by Sam Caballero MD @ 10/16/2022 8:40:55 PM (Electronically Signed)
[2022-10-16 17:57] LABS: Troponin, Point-of-Care* 0.01 ng/ml (0.01-0.04)
== END 2022-10-16 19:30 | disposition home or self-care (01) ==
PROVIDERS: Emergency Provider Family Medicine; PCP Family Medicine
DX: R51.9 Headache, unspecified (principal); R42 Dizziness and giddiness; E86.0 Dehydration
CPT/HCPCS: 36415; 70450; 70496; 70498; 80048; 80306; 82077; 83880; 84484; 85025; 85610; 85730; 87631; 93005; 96374; 99284; 99285; A9270; J2060; J7030; Q9967

== ENCOUNTER 2023-05-07 16:51 | Emergency (ER) | payer MEDICARE, OTHER, SELFPAY ==
[2023-05-07] VITALS (7 sets, daily range): BP systolic 111–116; BP diastolic 64–76; PULSE 71–83; RESP 18; TEMP 36.4; O2SAT 96–98; BMI 24.4
--- NOTE | 2023-05-07 17:16 | CRLHL7_ITS ---
For Patients: As a result of the Cures Act, medical imaging exams and procedure reports are released immediately into your electronic medical record. You may view this report before your referring provider. If you have questions, please contact your health care provider. INDICATION: Right lateral hip pain. TECHNIQUE: AP view pelvis and 2 views right hip. COMPARISON: None. FINDINGS: There is no radiographically evident acute/displaced fracture/dislocation. Mild-moderate right hip joint space narrowing. Mild left hip joint space narrowing. There is no intrinsic bone lesion identified. Bone density and cortical contour normal. IMPRESSION: No acute/displaced fracture. Chronic changes, as above. Dictated by David Troy MD @ 05/07/2023 6:07:02 PM (Electronically Signed)
[2023-05-07] MEDS: KETOROLAC 30 MG/ML inj IM (17:25)
--- NOTE | 2023-05-07 17:45 | ED_ITS ---
HPI - Extremity Injury (Lower) General Date Seen: 05/07/23 Chief Complaint: Extremity Pain/Injury, Lower Stated Complaint: Fell-injured R hip-very painful Time Seen by Provider: 05/07/23 16:55 Source: patient Mode of arrival: ambulatory Limitations: no limitations History of Present Illness HPI Narrative: Patient is a 78-year-old male presenting for right hip pain. States about 13:00 or 14:00 he tripped and fell landing on his right hip. States since then the pain has been a 20/10 sharp pain along the outside of his hip radiating down his leg. This stated feels somewhat like his previous sciatica. Has taken Tylenol for pain with minimal improvement in his symptoms. He has been able to walk on it since then. No other concerns noted. Denies hitting his head. Denies any proceeding in preceding lightheadedness or dizziness. Denies chest pain, shortness of breath, weakness, numbness, abdominal pain, vision changes. Related Data Home Medications Medication Instructions Recorded Confirmed dofetilide 250 mcg capsule 250 mcg PO DAILY 02/20/22 05/07/23 ferrous gluconate 324 mg (38 mg mg 02/20/22 iron) tablet furosemide 40 mg tablet 40 mg PO DAILY 02/20/22 05/07/23 metoprolol succinate 25 mg 25 mg PO DAILY 02/20/22 05/07/23 tablet,extended release 24 hr metoprolol tartrate 25 mg tablet mg 02/20/22 mirtazapine 7.5 mg tablet mg 02/20/22 pregabalin 100 mg capsule 100 mg PO TID 02/20/22 05/07/23 pregabalin 25 mg capsule mg 02/20/22 sennosides 8.6 mg tablet (senna) mg 02/20/22 sumatriptan succinate 50 mg tablet mg PO 02/20/22 tramadol 50 mg tablet mg 02/20/22 warfarin 1 mg tablet mg 02/20/22 Previous Rx's Medication Instructions Recorded oxycodone-acetaminophen 5 mg-325 1 - 2 tab PO Q4-6H PRN pain #14 03/05/22 mg tablet (Endocet) tabs Allergies Allergy/AdvReac Type Severity Reaction Status Date / Time Phenothiazines Allergy Severe Angioedema Verified 05/07/23 17:02 dronedarone [From Multaq] Allergy Verified 05/07/23 17:02 meperidine [From Demerol] Allergy Verified 05/07/23 17:02 morphine Allergy Verified 05/07/23 17:02 promethazine [From Phenergan] Allergy Verified 05/07/23 17:02 Review of Systems Status of ROS: Reports: 10 or more systems reviewed and unremarkable except as noted in History and below PFS PFS Medical History Hypertension ?I10 - Essential (primary) hypertension (ICD-10) Degenerative joint disease ?M19.90 - Unspecified osteoarthritis, unspecified site (ICD-10) Anemia ?D64.9 - Anemia, unspecified (ICD-10) Restless leg ?G25.81 - Restless legs syndrome (ICD-10) Anxiety ?F41.9 - Anxiety disorder, unspecified (ICD-10) Paroxysmal atrial fibrillation ?I48.0 - Paroxysmal atrial fibrillation (ICD-10) Surgical History History of arthroscopic knee surgery ?Z98.890 - Other specified postprocedural states (ICD-10) History of back surgery ?Z98.890 - Other specified postprocedural states (ICD-10) History of cardiac radiofrequency ablation ?Z98.890 - Other specified postprocedural states (ICD-10) History of appendectomy ?Z90.49 - Acquired absence of other specified parts of digestive tract (ICD- 10) History of cholecystectomy ?Z90.49 - Acquired absence of other specified parts of digestive tract (ICD- 10) S/P AAA repair ?Z98.890 - Other specified postprocedural states (ICD-10) ?Z86.79 - Personal history of other diseases of the circulatory system (ICD- 10) Social History Smoking Status: Never smoker Do you use any of these nicotine containing products: None Second hand tobacco smoke exposure: No How often do you have a drink containing alcohol: never How often do you have six or more drinks on one occasion: Never AUDIT-C Alcohol total score: 0 Non-prescribed substance use: denies use service: No Exam Narrative: Exam Narrative: Const: Well-nourished, Well-developed, in mild distress Eyes: PERRL, no conjunctival injection, and symmetrical lids HENT: Atraumatic external nose and ears. Moist mucous membranes. CV: Normal pulses lower extremity bilaterally MSK:Extremities w/o deformity, Normal Active ROM, tenderness noted to the lateral aspect of the right hip Skin: Warm, Dry. No rashes or lesions. Neuro: Normal Muscle tone, No focal neurological deficits. Psych: Awake, Alert, & Oriented x3. Appropriate mood and affect. Const: Vital Signs, click to edit/add: Vital Signs - 24 hr 05/07/23 16:58 05/07/23 17:46 Temperature 97.6 F Pulse Rate 74 Pulse Rate [Pulse Oximeter] 83 Respiratory Rate 18 Blood Pressure [Ri ght Upper Arm] 116/64 Pulse Oximetry 98 98 Oxygen Delivery Me thod Room Air Course Vital Signs Vital signs: Initial Vital Signs Temperature 97.6 F 05/07/23 16:58 Temperature Source Temporal Artery Scan 05/07/23 16:58 Pulse Rate 83 05/07/23 16:58 Respiratory Rate 18 05/07/23 16:58 Blood Pressure 116/64 05/07/23 16:58 Blood Pressure Mean 81 05/07/23 16:58 Blood Pressure Position Sitting 05/07/23 16:58 Pulse Oximetry 98 05/07/23 16:58 Oxygen Delivery Method Room Air 05/07/23 16:58 Vital Signs Temperature 97.6 F 05/07/23 16:58 Pulse Rate 83 05/07/23 16:58 Respiratory Rate 18 05/07/23 16:58 Blood Pressure 116/64 05/07/23 16:58 Pulse Oximetry 98 05/07/23 16:58 Oxygen Delivery Method Room Air 05/07/23 16:58 Temperature 97.6 F 05/07/23 16:58 Pulse Rate 74 05/07/23 17:46 Respiratory Rate 18 05/07/23 16:58 Blood Pressure 116/64 05/07/23 16:58 Pulse Oximetry 98 05/07/23 17:46 Oxygen Delivery Method Room Air 05/07/23 16:58 Medications Administered Medications: Generic Name Dose Route Start Last Admin Trade Name Freq PRN Reason Stop Dose Admin Ketorolac Tromethamine 30 mg 05/07/23 17:16 05/07/23 17:25 Ketorolac 30 Mg/Ml Inj IM 05/07/23 17:17 30 mg ONCE ONE Administration MDM - Extremity Injury (Lower) MDM Narrative Medical decision making narrative: Patient is a 78-year-old male presenting to the emergency department for right hip pain. This occurred after a fall with which based on his description was mechanical in nature. There is no associated dizziness or syncope. There is tenderness to the right hip but no bruising noted. No tenderness to the groin. Seems unlikely he has a fracture considering he was ambulating but we will get an x-ray of the hip. Toradol was given for pain. X-ray showed no acute injuries. He does state the pain is a little bit better. States he does have tramadol at home but he takes it very intermittently because he says it is pretty strong. He states he only has a couple pills left. I will give him prescription to instymeds. He is otherwise doing well we discharged home. Imaging Data Right hip x-ray: Radiologist's impression: No acute/displaced fracture. Chronic changes, as above. Dictated by David Troy MD @ 05/07/2023 6:07:02 PM Discharge Plan Discharge Clinical Impression: Acute hip pain Qualifiers: Laterality: right Qualified Code(s): M25.551 - Pain in right hip Patient Disposition: Home, Self-Care Condition: Stable Instructions: Bone Bruise (ED) Additional Instructions: No acute fractures were seen on imaging. Pain is likely a bone bruise or muscle strain. Take Tylenol ibuprofen for pain. Return for new or worsening symptoms. Tramadol was described to for pain. Take it if the Tylenol and ibuprofen are not helping Prescriptions: No Action furosemide 40 mg tablet 40 mg PO DAILY Patient Comments: TAKE 1 TABLET (40 MG) BY MOUTH EVERY MORNING. sennosides [senna] 8.6 mg tablet Patient Comments: TAKE 1 TABLET BY MOUTH 2 TIMES DAILY IF NEEDED FOR CONSTIPATION. dofetilide 250 mcg capsule 250 mcg PO DAILY sumatriptan succinate 50 mg tablet PO Patient Comments: TAKE 1 TABLET (50 MG) BY MOUTH EVERY 2 HOURS IF NEEDED FOR MIGRAINE. GIVE AT MINIMUM 2HRS APART. MAX DOSE: 200MG PER 24HRS. tramadol 50 mg tablet Patient Comments: take 1 tab qhs as needed for RLS rescue therapy. Not to exceed more than 2 nights/week metoprolol succinate 25 mg tablet extended release 24 hr 25 mg PO DAILY warfarin 1 mg tablet Patient Comments: TAKE BY MOUTH 2 MG (1 MG X 2) EVERY SUN; 3 MG (1 MG X 3) ALL OTHER DAYS OR DIRECTED metoprolol tartrate 25 mg tablet mirtazapine 7.5 mg tablet pregabalin 25 mg capsule Patient Comments: TAKE 1 CAP 3 TIMES PER DAILY. INCREASE TO 2 CAPS NIGHTTIME DOSING IF NEEDED AFTER 1 WEEK (TOTAL DOSING 125 MG AM AND AFTERNOON 150MG AT BEDTIME) pregabalin 100 mg capsule 100 mg PO TID Patient Comments: TAKE 1 CAPSULE BY MOUTH THREE TIMES A DAY ferrous gluconate 324 mg (38 mg iron) tablet Patient Comments: TAKE 1 TABLET BY MOUTH ONCE DAILY WITH A MEAL. oxycodone-acetaminophen [Endocet] 5-325 mg tablet 1 - 2 tab PO Q4-6H PRN (Reason: pain) Qty: 14 0RF Follow Up/Referrals: Kiersten Fitch MD [Primary Care Provider] - Stand Alone Forms: MyHealth Info Instructions
--- OUTSIDE RECORDS SUMMARY | 2023-05-07 17:53 | XMS_ITS | Continuity of Care Document ---
Author Name Unknown Organization [facility] Address [address] [place] [address] Phone Care Team Providers Care Kiln Repairer Name Role Phone David GEORGE, Robert Unavailable Unavailable Allergies, Adverse Reactions, Alerts Substance Reaction Status Criticality MEPERIDINE HCL Active No Informatio n morphine Active No Information Procedures Procedure Date [place] [facility] [place]patient visit,est, low 2007 Office/outpatient visit,est, low 2007 X-ray exam of total spine Office/outpatient visit,est, low 2007 Office/outpatient visit,est, low 2006 Office consultation, moderate-high X-ray exam lwr spine, min 4 views Advance Directives Directive Yes / No Effective Date File Name No Information Encounters Encounter Description Practice Location Reason(s) For Visit Diagnoses Date Provider Providers Copied on Encounter [facility], [address], [place], [place], [id number], [place] tel:[phone] [facility] No Information 6 Mehbod Amir. [facility] [place], [address] [place] [address] [address], [place], [place], [id number] , [place]. tel:[phone] Office/Outpat ient Visit,[facility], [facility] [place] [facility], [address], [place], [address], [place] tel:[phone] [facility] 4 Mehbod Amir. [facility], [address], [place], [place], [id number] , [place]. tel:[phone] Referring Provider: Aravind Morales, [address] [facility] [address], [place], [address]. tel:[phone] Office/outpat ient visit,est, low Z [facility], [address], [place], [address], [place] tel:[phone] [facility] No Information Apr-0 1-200 8 Mehbod Amir. [facility], [address], [place], [place], [id number] , [place]. tel:[phone] Referring Provider: Aravind Morales, [address] [facility] [address], [place], [address]. tel:[phone] Office/outpat ient visit,est, low Z [facility], [address], [place], [address], [place] tel:[phone] [facility] No Information 0-200 8 Mehbod Amir. [facility], [address], [place], [place], [id number] , [place]. [phone] Referring Provider: Aravind Morales, [address] [facility] [address] , [place], [address]. tel:[phone] Office/outpat ient visit,est, low Z [facility], [address], [place], [address], [place] tel:[phone] [facility] No Information 2 8-200 8 Mehbod Amir. [facility], [address], [place], [place], [id number] , [place]. [phone] Referring Provider: Aravind Morales, [facility] [address], [place], [address]. tel:[phone] Office/outpat ient visit,est, low Z [facility], [address], [place], [address], [place] tel:[phone] [facility] No Information 200 7 Mehbod Amir. [facility], [address], [place], [place], [id number] , . tel:[phone] Referring Provider: Aravind Morales, [address], [place], [address]. tel:[phone] Office consultation, moderate-high Z [facility], [address], [place], [address], tel:[phone] [facility] No Information 200 7 Mehbod Amir. [facility], [address] [place] [address] [address], [place], [place], [id number] , . tel:[phone] Referring Provider: Aravind Morales, [address], [place], [address]. tel:[phone] Family History Family Member Type Diagnosis Age At Onset No Information Payers Payer name Insurance type Covered democrat ID Authoriza tion(s) No Information Social History Type Description Quantity Date Captured Comments Sex Male Smoking Status No Information Chief Complaint And Reason For Visit No Information Reason For Referral Reason For Referral No Information History Of Present Illness Encounter Date Complaint History Of Prese nt Illness No Information Functional Status Date Functional Assessmen t No Information Instructions Date Instruction Additional Infor mation No Information Assessments Type Assessment Date No Information Patient Care Teams Name Effective Dates (start - stop) Status Members No Information
== END 2023-05-07 18:28 | disposition home or self-care (01) ==
PROVIDERS: Emergency Provider Student in an Organized Health Care Education/Training Program; PCP Family Medicine
DX: M25.551 Pain in right hip (principal)
CPT/HCPCS: 73502; 96372; 99282; 99284; J1885

== ENCOUNTER 2023-07-26 10:00 | Outpatient (RCR) | payer MEDICARE, OTHER, SELFPAY ==
--- NOTE | 2023-07-26 11:39 | PT.OPEX ---
PT [facility] Outpatient Eval PT [facility] Outpatient Eval Start: 07/19/23 08:15 Freq: Status: Active Protocol: Document 07/26/23 11:32 DONNA (Rec: 07/26/23 11:38 DONNA [id number]) E-signed By Lois Higginbotham PT Physical Therapy Outpatient Evaluation Insurance Information Recert Due Date 10/20/23 Insurance Name Medicare B Medical Diagnosis Fall Risk LE Weakness Treating Diagnosis LE Weakness Impaired AROM marty hips Fall Risk Referring MD Kiersten Fitch Subjective Subjective Gregorio reports having covid twice in the past 3 years. During his first bout, he was hospitalized for 4 weeks. He did not think he would live through that. He has general weakness and deconditioning. He has had a fall, about 3 months ago, his stool callapsed and he fell backwards when [facility]/ [facility] [place] the [facility] . Fell backwards and hit his head on the piano. Tripped over a small step stool at his daughters house and he fell and landed on his hip. Ended up no injuries. Had heart surgery March 2021. Actually for a minute on the table. 6.5 hours later, came out ok. 2 days later they had to open him up again due to blood clotting around his heart. He was in the hospital for 31 days. Due to medications he reports having hallucinations for about 4 months. Lost all sense of taste for 4 months. Lost about 50#. Back up to 185# now. Then his Rt lung collapsed. He reports losing so much mm mass. This all was about 2.5 years ago. Chest pain and deep ache with twisting and cough, deep breathing. Only attended cardiac care for 2 days. He stated he just could not use the bike or TM, caused immediate sciatica pain. Able to stand/walk (gather 4-6 items shopping) 12 min max. He lives alone in an apartment. 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 Getting some medical assist wtih this/laundry. Able to shower and dress IND, but hard to get his compression socks on/off. Pain Comments Pain is 24/7. If not his legs, it is his sciatica marty. Cannot lift more than about 5# and sciatica pain increases or chest pain increases. Date of Last Physician Visit 05/26/23 Current Work Status Retired Preferred Name Gregorio Precautions Treatment Precautions/Contraindications Hypertension A-Fib / Cardiac Ablasion DJD Anxiety Knee scope Assessment Assessment/Impression 78 yo male with DX of LE Weakness and Fall Risk. He arrived to dept via IND ambulation without any AD. He presents with reduced UT/LT seperation, reduced heel strike and toe push off. Reduced arm swing, widened Darryn . Forwar head and flatened spine posture. Poor endurance; we walked from the lobby to a treatment room and 125 feet [place] and he was exhausted and dropped into office chair. Shoulder gross AROM is overall WFL, as are LE. He can only take approx 1/2 of a full breath due to reported chest pain with deep breathing . UT and pect hypertonicity. Hip ext just to midline/0 deg. Sit to stand from standard chair with use of marty UE. SLS average 3 seconds marty. WBOS EO good, EC fair. Narrow base EO is poor balance. Gross strength UE 4/5, LE 3/5. He cannot smoothly A/D flight of 5 steps, but has elevator in his apartment. He will benefit from continued skilled physical therapy to provide education in HEP for gross full body flexibility and strength, edurance and balance /gait skills. He prefers tasks he can complete on his own vs requiring equipment or a gym. He does like to walk. Thank you for this referral. Plan of Care Rehabilitation Potential Good Physical Therapy Goals In 8-10 visits, Gregorio will be able to report: 1. IND in proper execution of HEP with emphasis on reps, alignment, HOLD time and breathing 2. Stand/walk up to 30 minutes to improve ease of ADL's and community ambulation. 3. Sit to stand without use of arms on chair arms, demo increase in LE strength 4. Lift/carry up to 10# without increased trunk pain, distance of 30 feet: promote ease of laundry, light house keeping, gather groceries, cooking, etc. 5. Walk for ex up to 1.5 miles per day, build up endurance and circulatory benefits. Coordination/Communication With Referral Source Treatment Plan/Direct Interventions Gait Training,Manual Therapy, Neuromuscular Re-ed,Self-Care/ Home Management,Therapeutic Activities,Therapeutic Exercises Frequency/Duration 1X/Wk for 10 visits Patient Will Be Discharged From Therapy Completion of LTG(s),Skills Plateau,Independent w/HEP, Independently Progressing Evaluation Billing Untimed Code Treatment Minutes 32 Complexity Moderate Certification Information Initial Certification Date 07/26/23 Ending Certification Date 10/20/23 Provider Signature Shows Agreement With POC & Medical Necessity Physician Signature & Date Requested Please Sign/Date Here Physician Comment/Change : Physician NPI Number #
== END 2023-11-23 23:59 | disposition home or self-care (01) ==
PROVIDERS: PCP Family Medicine; Visit Provider Family Medicine
DX: R53.1 Weakness (principal); Z91.81 History of falling; Z74.09 Other reduced mobility; Z51.89 Encounter for other specified aftercare
CPT/HCPCS: 97110; 97162

== ENCOUNTER 2023-08-10 16:27 | Emergency (ER) | payer MEDICARE, OTHER, SELFPAY ==
[2023-08-10] VITALS (14 sets, daily range): BP systolic 115–124; BP diastolic 59–71; PULSE 76–85; RESP 20; TEMP 37.2; O2SAT 96–98; BMI 25.1
--- NOTE | 2023-08-10 16:55 | ED_ITS ---
HPI - General Adult General Chief complaint: Chest Pain Stated complaint: Chest pain Time Seen by Provider: 08/10/23 16:40 History of Present Illness HPI narrative: Pt reports chest pain that started a few nights ago. It was sharp in nature. Notes feeling clammy at that time too. States chest pain still present. Reporting SOB currently too. Able to speak in full sentences in triage. Denies fevers. Only sick contact is daughter who recently had pneumonia. States he was in her apartment but not near his daughter. 78-year-old man presenting to the emergency department with concern of chest pain now resolved. This was in the left low chest. Had been present beginning 2 days ago for most of that time. He had called into clinic to schedule appointment for feeling intermittently short of breath and he notes how copious rhinorrhea and this chest pain. He says that they called him and told him to come to the emergency department once they saw why he was scheduled. Does have a history of open-heart surgery and the pneumonias. Struggled with failure to thrive as well and has been admitted to this facility. Has been doing better for a while. Does admit some seasonal allergies but the rhinorrhea that he was describing is more than usual. If also describes how he was feeling these pulses of pain in his chest and abdomen that his neurologist seems to think he says are related to residual scar tissue. It seems to be describing premature ventricular contractions in our conversation; thumps in his chest of a sort . I believe that primary question also revolved around whether not he may have had a heart attack in the last couple of days. He says that the nurses said that we could check enzymes in that regard. He has not had a fever. Not been coughing. Also problematic is that he has lost his retainer. He takes it out to eat and has been missing for 3 days. Is anticoagulated with Coumadin with a history of paroxysmal atrial fibrillation. Related Data Home Medications Medication Instructions Recorded Confirmed dofetilide 250 mcg capsule 250 mcg PO DAILY 02/20/22 08/10/23 metoprolol succinate 25 mg 25 mg PO DAILY 02/20/22 08/10/23 tablet,extended release 24 hr pregabalin 100 mg capsule 100 mg PO TID 02/20/22 08/10/23 pregabalin 25 mg capsule mg 02/20/22 sennosides 8.6 mg tablet (senna) mg 02/20/22 sumatriptan succinate 50 mg tablet mg PO 02/20/22 tramadol 50 mg tablet mg 02/20/22 warfarin 1 mg tablet mg 02/20/22 furosemide 20 mg tablet 20 mg PO QAM 08/10/23 08/10/23 pregabalin 50 mg capsule mg PO 08/10/23 Allergies Allergy/AdvReac Type Severity Reaction Status Date / Time Phenothiazines Allergy Severe Angioedema Verified 08/10/23 16:46 dronedarone [From Multaq] Allergy Verified 08/10/23 16:46 meperidine [From Demerol] Allergy Verified 08/10/23 16:46 morphine Allergy Verified 08/10/23 16:46 promethazine [From Phenergan] Allergy Verified 08/10/23 16:46 Review of Systems Status of ROS: Reports: 6 or more systems reviewed and unremarkable except as noted in History and below PFSH PFS Medical History Hypertension ?I10 - Essential (primary) hypertension (ICD-10) Degenerative joint disease ?M19.90 - Unspecified osteoarthritis, unspecified site (ICD-10) Anemia ?D64.9 - Anemia, unspecified (ICD-10) Restless leg ?G25.81 - Restless legs syndrome (ICD-10) Anxiety ?F41.9 - Anxiety disorder, unspecified (ICD-10) Paroxysmal atrial fibrillation ?I48.0 - Paroxysmal atrial fibrillation (ICD-10) Surgical History History of arthroscopic knee surgery ?Z98.890 - Other specified postprocedural states (ICD-10) History of back surgery ?Z98.890 - Other specified postprocedural states (ICD-10) History of cardiac radiofrequency ablation ?Z98.890 - Other specified postprocedural states (ICD-10) History of appendectomy ?Z90.49 - Acquired absence of other specified parts of digestive tract (ICD- 10) History of cholecystectomy ?Z90.49 - Acquired absence of other specified parts of digestive tract (ICD- 10) S/P AAA repair ?Z98.890 - Other specified postprocedural states (ICD-10) ?Z86.79 - Personal history of other diseases of the circulatory system (ICD- 10) Social History Smoking Status: Never smoker Do you use any of these nicotine containing products: None Second hand tobacco smoke exposure: No How often do you have a drink containing alcohol: never How often do you have six or more drinks on one occasion: Never AUDIT-C Alcohol total score: 0 Non-prescribed substance use: denies use service: No Exam Narrative: Exam Narrative: Pleasant. NAD. Speaking easily. Wearing a mask initially. Does sound a little congested nasopharynx without facial swelling or erythema. Lungs actually sound to be clear. Back is quite thin almost cachectic. Otherwise he looks decently nourished contrary to prior exam as I recall. Neck is supple without lymphadenopathy. Heart in regular rate and rhythm. There is a large midline sternotomy scar. Abdomen is soft will for sure brand nontender. He is quite tender to palpation over the left low chest which he says has been present since his surgery actually. This is the area where he was experiencing pain. No swelling erythema or rash evident. Extremities are well perfused. Lower extremities with compression stockings in place do not appear to have any edema. Oropharynx is without cobblestoning or erythema. He is missing some dentition corresponding to his retainer placed among the upper teeth. Const: Vital Signs, click to edit/add: Vital Signs - 24 hr 08/10/23 16:40 08/10/23 17:00 08/10/23 17:02 Temperature 99 F Pulse Rate 80 81 Pulse Rate [Pulse Oximeter] 85 Respiratory Rate 20 Blood Pressure 115/69 Blood Pressure [Ri ght Upper Arm] 115/64 Pulse Oximetry 98 96 98 Oxygen Delivery Me thod Room Air 08/10/23 17:15 08/10/23 17:30 08/10/23 17:32 Temperature Pulse Rate 80 80 79 Pulse Rate [Pulse Oximeter] Respiratory Rate Blood Pressure 124/59 L Blood Pressure [Ri ght Upper Arm] Pulse Oximetry 96 96 96 Oxygen Delivery Me thod 08/10/23 17:45 08/10/23 18:00 08/10/23 18:02 Temperature Pulse Rate 78 78 77 Pulse Rate [Pulse Oximeter] Respiratory Rate Blood Pressure 118/60 Blood Pressure [Ri ght Upper Arm] Pulse Oximetry 96 96 96 Oxygen Delivery Me thod 08/10/23 18:03 08/10/23 18:15 08/10/23 18:30 Temperature Pulse Rate 77 77 76 Pulse Rate [Pulse Oximeter] Respiratory Rate Blood Pressure Blood Pressure [Ri ght Upper Arm] Pulse Oximetry 97 97 97 Oxygen Delivery Me thod 08/10/23 18:32 08/10/23 18:45 Temperature Pulse Rate 76 77 Pulse Rate [Pulse Oximeter] Respiratory Rate Blood Pressure 122/71 Blood Pressure [Ri ght Upper Arm] Pulse Oximetry 97 98 Oxygen Delivery Me thod Documenting provider has reviewed patient's vital signs: yes Course Vital Signs Vital signs: Initial Vital Signs Temperature 99 F 08/10/23 16:40 Temperature Source Temporal Artery Scan 08/10/23 16:40 Pulse Rate 85 08/10/23 16:40 Pulse Rhythm Regular 08/10/23 16:40 Pulse Strength 3+ Normal 08/10/23 16:40 Respiratory Rate 20 08/10/23 16:40 Blood Pressure 115/64 08/10/23 16:40 Blood Pressure Mean 81 08/10/23 16:40 Blood Pressure Position Sitting 08/10/23 16:40 Pulse Oximetry 98 08/10/23 16:40 Oxygen Delivery Method Room Air 08/10/23 16:40 Vital Signs Temperature 99 F 08/10/23 16:40 Pulse Rate 85 08/10/23 16:40 Respiratory Rate 20 08/10/23 16:40 Blood Pressure 115/64 08/10/23 16:40 Pulse Oximetry 98 08/10/23 16:40 Oxygen Delivery Method Room Air 08/10/23 16:40 Temperature 99 F 08/10/23 16:40 Pulse Rate 77 08/10/23 18:45 Respiratory Rate 20 08/10/23 16:40 Blood Pressure 122/71 08/10/23 18:32 Pulse Oximetry 98 08/10/23 18:45 Oxygen Delivery Method Room Air 08/10/23 16:40 Medical Decision Making MDM Narrative Medical decision making narrative: Primary discomfort that I think generated visit here today appears to be reproducible in the lower left chest wall. Has been present also per Mr. English's report in some form since surgical manipulation of the chest wall. He does not appear to have infection of any sort. Vitals are reassuring. He is not in atrial fibrillation today. However I think it would be prudent to image his chest looking for occult abnormality or possible pneumonia. There has apparently been no new trauma. PE I suppose is in differential but he is anticoagulated and vitally well. Chest x-ray reviewed by me I think shows some mild atelectasis. Postoperative changes. No clear infiltrate. Labs are reassuring with an INR of 2.4. Over period of time in the emergency department was without further events on monitor. Discussed placing lidocaine patch here in the emergency department on his left lower chest which he ultimately declined. Concern expressed of potential interaction with medications or pushing him into atrial fibrillation. I discussed that this was unlikely. See patient discharge plan for further discussion Medical Records Medical records reviewed: Yes I reviewed the patient's medical records Lab Data Lab results reviewed: Yes I reviewed the patient's lab results Labs: Lab Results 08/10/23 Range/Units 17:39 WBC 5.29 (4.50-11.00) K/uL RBC 4.27 L (4.30-5.90) m/uL Hgb 13.0 L (13.5-17.5) gm/dL Hct 40.1 (37.0-53.0) % MCV 94 (80-100) fL MCH 30 (26-34) pg MCHC 32 (32-36) gm/dL RDW Coeff of Phyllis 13.0 (11.5-15.5) % Plt Count 191 (140-440) K/uL Neut % (Auto) 68.8 (42.0-72.0) % Lymph % (Auto) 20.4 (20-44) % [place]au % (Auto) 7.8 (0.0-11.0) % Eos % (Auto) 2.6 (0.0-7.0) % Baso % (Auto) 0.4 (0.0-3.0) % Neut # (Auto) 3.64 (1.7-7.0) K/uL Lymph # (Auto) 1.08 (0.90-2.90) K/uL [place] # (Auto) 0.40 (0.00-0.90) K/UL Eos # (Auto) 0.14 (0.00-0.50) K/uL Baso # (Auto) 0.02 (0.00-0.30) K/uL Abs Immat Gran (auto) 0.00 (0.00-0.30) K/uL Imm/Tot Granulo (auto) 0.0 % INR 2.43 H (0.91-1.10) Sodium 139 (135-149) mmol/L Potassium 3.9 (3.6-5.1) mmol/L Chloride 108 (96-114) mmol/L Carbon Dioxide 29 (20-32) mmol/L Anion Gap 2 L (7-15) mEq/L BUN 17 (7-30) mg/dL Creatinine 0.8 (0.5-1.5) mg/dL Estimated Creat Clear 67.90 Estimated GFR 91 ml/min Glucose 90 (60-115) mg/dL Calcium 8.8 (8.4-10.6) mg/dL Troponin I < 0.01 L (0.01-0.04) ng/mL C-Reactive Protein < 0.5 L (0.5-1.0) mg/dL NT-Pro-B Natriuret Pep 734 pg/mL POC Troponin I 0.00 L (0.01-0.04) ng/ml ECG Data Attestation: I personally reviewed and interpreted this ECG as follows: (Normal sinus rhythm at a rate of 78. No ischemic changes appreciated) Discharge Plan Discharge Clinical Impression: Rhinorrhea, Chest wall pain Patient Disposition: Home, Self-Care Condition: Improved Additional Instructions: Those chest thumps you are describing sound like premature ventricular contractions, also known as PVCs. The runny nose that you had been having, might be related to allergies. Given your concerns and atrial fibrillation, you might want to avoid medications like pseudoephedrine. Nasal steroid sprays like fluticasone, budesonide or becl omethasone or triamcinolone, might be helpful however or certainly taking oral antihistamines like fexofenadine, cetirizine or loratadine. It appears that you are having chest wall pain. Complicated by your anticoagulation with Coumadin. You can continue to take acetaminophen. You might try hyyc-owl-[id number] lidocaine patches placing the center of the patch over the area of maximal pain. Prescriptions: No Action furosemide 20 mg tablet 20 mg PO QAM pregabalin 50 mg capsule PO sennosides [senna] 8.6 mg tablet Patient Comments: TAKE 1 TABLET BY MOUTH 2 TIMES DAILY IF NEEDED FOR CONSTIPATION. dofetilide 250 mcg capsule 250 mcg PO DAILY sumatriptan succinate 50 mg tablet PO Patient Comments: TAKE 1 TABLET (50 MG) BY MOUTH EVERY 2 HOURS IF NEEDED FOR MIGRAINE. GIVE AT MINIMUM 2HRS APART. MAX DOSE: 200MG PER 24HRS. tramadol 50 mg tablet Patient Comments: take 1 tab qhs as needed for RLS rescue therapy. Not to exceed more than 2 nights/week metoprolol succinate 25 mg tablet extended release 24 hr 25 mg PO DAILY warfarin 1 mg tablet Patient Comments: TAKE BY MOUTH 2 MG (1 MG X 2) EVERY SUN; 3 MG (1 MG X 3) ALL OTHER DAYS OR DIRECTED pregabalin 25 mg capsule Patient Comments: TAKE 1 CAP 3 TIMES PER DAILY. INCREASE TO 2 CAPS NIGHTTIME DOSING IF NEEDED AFTER 1 WEEK (TOTAL DOSING 125 MG AM AND AFTERNOON 150MG AT BEDTIME) pregabalin 100 mg capsule 100 mg PO TID Patient Comments: TAKE 1 CAPSULE BY MOUTH THREE TIMES A DAY Follow Up/Referrals: Kiersten Fitch MD [Primary Care Provider] - Stand Alone Forms: [facility] Info Instructions
--- NOTE | 2023-08-10 17:09 | XR_ITS ---
Patient: PO [facility] Facility:?[facility] Patient ID:?[id number] Site Patient ID:?[id number]. Site :?[id number] Study:?XRay-Chest 1 VIEW PORTABLE-08/10/2023 5:56:16 PM Ordering Physician:DELLA Final Report: Indication: Left lower chest pain Technique: One view of the chest Comparison: Chest radiograph on May 30, 2022 Findings: Cardiac and mediastinal contours are stable. Prior median sternotomy and left atrial appendage clip. Aortic atherosclerosis. No focal airspace consolidation, pleural effusion, or pneumothorax. Stable biapical pleural scarring. Similar-appearing hyperinflated lungs. The visualized upper abdomen and osseous structures show no acute abnormality. Impression: No acute cardiopulmonary process. Dictated by Papito Pineda MD @ 08/10/2023 6:35:23 PM Signed by:?Papito Pineda MD @08/10/2023 6:35:23 PM (Electronic Signature)
--- OUTSIDE RECORDS SUMMARY | 2023-08-10 17:27 | XMS_ITS | Referral Summary ---
Author Name Unknown Organization [facility] Address [address] [place] [address] Care Team Providers Care Mediator Name Role Phone Elsewhere, Pcp Primary Care Provider Unavailabl e Source Comments Patient records contain information from all sites at [facility]. For routine questions regarding patient records, call [phone] during business hours, M-F 8:00 AM - 5:00 PM Central Time. Record requests for emergency care only can be directed to [phone] at any time.[facility] Allergies Active Allergy Reactions Criticality Noted Date Comments Dronedarone Other (see comments),Shortness of breath (Reselect Reaction) 04/29/2009 SHORT OF BREATH, NERVOUS, TWITCHY Meperidine Angioedema (Reselect Reaction),Shortness of breath (Reselect Reaction),Edema (Reselect Reaction),Palpitations High 07/08/2006 Facial swelling, after hypo with Phenergan GIVEN WITH PHENERGAN Morphine GI intolerance,Nause a And Vomiting 06/20/2007 VOMITING WITH ANY MOVEMENT Phenothiazines Angioedema (Reselect Reaction),Shortness of breath (Reselect Reaction),Edema (Reselect Reaction),Palpitations High 07/08/2006 Facial swelling, after hypo with Demerol GIVEN WITH DEMEROL Pollen Extracts Other (see comments) 04/01/2016 Sertraline Nausea Only 03/07/2017 Medications Medication Sig Dispensed Refills Start Date End Date Status digestive enzymes capsule Take 1 capsule by mouth daily. 0 Active acetaminophen (TYLENOL) 500 mg tablet Take 500-1,000 mg by mouth. 0 Active ascorbic acid, vitamin C, (VITAMIN C) 1,000 mg tablet Take 2 tablets by mouth 2 (two) times a day. 0 04/17/2020 Active aspirin 81 mg chewable tablet Chew 81 mg daily. 0 04/15/2021 Ac tive cholecalciferol (VITAMIN D3) 50 mcg (2,000 Unit) capsule Take 2 capsules by mouth 2 (two) times a day. 0 11/17/2011 Active dofetilide (TIKOSYN) 250 mcg capsule Take 250 mcg by mouth 2 (two) times a day. 0 08/26/2021 Active furosemide (LASIX) 40 mg tablet Take 40 mg by mouth daily. 0 07/13/2021 Active metoprolol succinate (TOPROL-XL) 50 mg 24 hr tablet Take 50 mg by mouth daily. 0 06/11/2021 Active SUMAtriptan (IMITREX) 50 mg tablet Take 100 mg by mouth at bedtime as needed. 0 Active warfarin (COUMADIN) 1 mg tablet TAKE 2 TABLETS BY MOUTH TUESDAY, TUESDAY, TUESDAY AND 1 TABLET ALL OTHER DAYS OF THE WEEK. 0 08/03/2021 Active zinc gluconate 100 mg tablet Take 50 mg by mouth. 0 12/22/2020 Active traMADoL (ULTRAM) 50 mg tablet Take 50 mg by mouth at bedtime as needed. 0 01/21/2023 Active pregabalin (LYRICA) 100 mg capsule Take 100 mg by mouth 3 (three) times a day. 0 Active pregabalin (LYRICA) 50 mg capsule Take 50 mg by mouth 3 (three) times a day. 0 10/07/2022 Active pregabalin (LYRICA) 25 mg capsule Take 25 mg by mouth 3 (three) times a day. 0 03/15/2023 Active Active Problems No known active problems Immunizations Name Administration Dates Next Due Influenza TIV (IM) 04/05/2013 Influenza, Injectable, Quadrivalent 01/16/2017 Influenza, Seasonal, Injectable 04/05/2013 Influenza, Unspecified 02/16/2018,04/05/2013 PCV13 01/20/2015 PPSV23(Discontinued) 04/05/2013,06/02/2012 Td (Adult), adsorbed 05/06/2004 Td, (Adult) Unspecified 01/30/2005 Tdap 06/16/2018 influenza high dose (65 year s or older) (PF) 02/16/2018,01/27/2017,01/20/2015,2013 influenza vaccine QV(FLUBLOK ) (18 years or older) (PF) 01/24/2020 influenza vaccine quad (FLUZONE/FLUARIX) (6 months and older)(PF) 02/26/2019,01/23/2016 Social History Tobacco Use Types Packs/Day Years Used Date Smoking Tobacco: Former Cigarettes Q uit: 09/09/1994 Tobacco Cessation:Counseling Given: Not Answered Alcohol Use Standard Drinks/Week Comments Not Currently 0 (1 standard drink = 0.6 oz pur e alcohol) Humiliation, Afraid, Rape, and Kick questionnair e Answer Date Recorded Within the last year, have y ou been afraid of your partner or ex-partner? No 08/31/2021 Within the last year, have y ou been humiliated or emotionally abused in other ways by your partner or ex-partner? No Within the last year, have y ou been kicked, hit, slapped, or otherwise physically hurt by your partner or ex-partner? No 08/31/2021 Within the last year, have y ou been raped or forced to have any kind of sexual activity by your partner or ex-partner? No 08/31/2021 Social Connection and Isolat ion Panel [NHANES] Answer Date Recorded In a typical week, how many times do you talk on the phone with family, friends, or neighbors? More than three times a week 08/31/2021 How often do you get togethe r with friends or relatives? Once a week 08/31/2021 How often do you attend chur or jew services? Patient declined 08/31/2021 Do you belong to any clubs o r organizations such as orthodox groups, unions, fraternal or athletic groups, or school groups? No 08/31/2021 How often do you attend meet ings of the clubs or organizations you belong to? Never 08/31/2021 Are you , , di vorced, , never , or living with a partner? 08/31/2021 AUDIT-C Answer Date Recorded Q1: How often do you have a drink containing alc ohol? Never 08/31/2021 Average Number of Drinks Not on file 022 Frequency of Binge Drinking Not on file 06/2021 Overall Financial Resource Strain (CARDIA) Answe r Date Recorded How hard is it for you to pa y for the very basics like food, housing, medical care, and heating? Very hard 08/31/2021 PHQ-2 Answer Date Recorded PHQ-2 Score 0 08/31/2021 [facility] [place] - Occupational Stress Questionnaire Answer Date Recorded Do you feel stress - tense, restless, nervous, or anxious, or unable to sleep at night because your mind is troubled all the time - these days? Only a little 08/31/2021 Exercise Vital Sign Answer Date Recorde d On average, how many days pe r week do you engage in moderate to strenuous exercise (like a brisk walk)? 5 days 08/31/2021 On average, how many minutes do you engage in exercise at this level? 20 min 08/31/2021 Hunger Vital Sign Answer Date Recorded Within the past 12 months, y ou worried that your food would run out before you got the money to buy more. Sometimes true Within the past 12 months, t he food you bought just didn't last and you didn't have money to get more. Sometimes true 06/2021 PRAPARE - Transportation Answer Date Re corded In the past 12 months, has l ack of transportation kept you from medical appointments or from getting medications? No 06/2021 In the past 12 months, has l ack of transportation kept you from meetings, work, or from getting things needed for daily living? No 08/31/2021 Housing Stability Vital Sign Answer Ramón e Recorded In the last 12 months, was t here a time when you were not able to pay the mortgage or rent on time? Patient refused 09/01/19 In the last 12 months, how many places have you lived? [id number] 08/31/2021 In the last 12 months, was t here a time when you did not have a steady place to sleep or slept in a skilled nursing (including now)? No 08/31/2021 Nutrition Answer Date Recorded Nutrition: EVOO Fat Source No 08/31 On average, how many serving s of fruits and vegetables do you eat per day (serving size is equal to 1 cup or approximately the size of a tennis ball)? 0-1 08/31/2021 Dental Answer Date Recorded Dental: Regular Dentist Yes 09/01/19 Employment Answer Date Recorded Employment status Retired 08/31/2021 Education Answer Date Recorded What is the highest level of school you have completed or the highest degree you have received? 12th grade 08/31/2021 Sex and Gender Information Value Date Recorded Sex Assigned at Not on file Gender Identity Not on file Sexual Orientation Not on file Last Filed Vital Signs Vital Sign Reading Time Taken Comments Blood Pressure 118/82 03/29/2023 3:59 PM [employer] Pulse 82 03/29/2023 2:54 PM [employer] Temperature 36.5 ??C (97.7 ??F) 03/29/2023 3:59 PM CS T Respiratory Rate 18 03/29/2023 3:59 PM [employer] Oxygen Saturation 100% 03/29/2023 3:59 PM [employer] Inhaled Oxygen Concentration - - Weight 73.5 kg (162 lb 0.6 oz) 08/31/2021 7:42 A M CDT Height 182.9 cm (6') 03/29/2023 4:10 PM [employer] Body Mass Index 21.71 08/31/2021 7:42 AM CDT Plan of Treatment Not on file Care Teams Mediator Relationship Specialty Start Date End Date Elsewhere, Pcp PCP - General Internal Medicine 08/31/21
--- OUTSIDE RECORDS SUMMARY | 2023-08-10 17:27 | XMS_ITS | Clinical Summary ---
Author Name Unknown Organization [facility] Address [address] [place] [address] Care Team Providers Care Biology Intern Name Role Phone Aravind Decker MD Primary Care Provider [phone] Source Comments You are receiving this document as you are listed as the primary care provider,follow-up provider, or the patient has been referred to you for consultation.This is in compliance with the Medicare and[facility] EHR Incentive Program,which states Providers who transition their patient to another setting of careor provider of care or refers their patient to another provider of care shouldprovide summary care record for each transition of care or referral. [facility] Allergies Active Allergy Reactions Criticality Noted Date Comments Meperidine Angioedema High 01/11/2014 GIVEN WITH PHENERGAN Morphine Gastrointestinal 01/11/2014 VOMITING WITH ANY MOVEMENT Dronedarone Other, see comments 01/11/2014 SHORT OF BREATH, NERVOUS, TWITCHY Phenothiazines Angioedema High 01/11/2014 GIVEN WITH DEMEROL Medications Medication Sig Dispensed Refills Start Date End Date Status dofetilide (TIKOSYN) 250 MCG capsuleIndications:A trial Fibrillation Take 250 mcg by mouth every 12 hours. Indications: Atrial Fibrillation Active ATENolol (AKA TENORMIN) 25 MG tabletIndications:Hy pertension,Supravent ricular Cardiac Arrhythmia Take 25 mg by mouth every morning. Indications: High Blood Pressure, Supraventricular Cardiac Arrhythmia Active diltiazem CD coated beads (CARDIZEM CD) 120 MG 24 hour release capsule Take 120 mg by mouth daily. Before breakfast Active DIAZEpam (AKA VALIUM) 5 MG tablet Take 2 mg by mouth daily as needed for Anxiety. Hasn't had for months Active cholecalciferol (VITAMIN D3) 1000 UNITS tablet Take 1,000 Units by mouth two times a day with meals. Active Magnesium-Zinc 133.33-5 MG TABS Take 1 Tab by mouth daily. H&P says Magnesium 250mg BID verify Active warfarin (AKA COUMADIN) 2.5 MG tablet Take 2.5 mg by mouth every evening. At 5 pm on Mondays, Wednesdays, & Fridays Active warfarin (AKA COUMADIN) 5 MG tablet Take 5 mg by mouth daily. At 5pm on Sundays, Tuesdays, & Saturdays Active sildenafil (AKA VIAGRA) 50 MG tabletIndications:Er ectile Dysfunction Take 50 mg by mouth. As needed for ED. Take 30 min to 4 hours prior to sexual activity. Max of 100mg per 24 hours Indications: Erectile Dysfunction Active DIGESTIVE ENZYMES OR Take 1 Cap by mouth daily. Before supper Active ondansetron (AKA ZOFRAN) 4 MG disintegrating tablet Take 4 mg by mouth every 6 hours as needed for Nausea (or vomiting). Pt not taking anymore Active SUMAtriptan (AKA IMITREX) 50 MG tablet Take 100 mg by mouth once as needed (for migraine.). Max dose of 200mg per 24 hours Active magnesium oxide (AKA MAG-OX 400) 250 MG tablet Take 1 mg by mouth two times a day with meals. Active oxyCODONE-acetaminop hen (AKA PERCOCET) 5-325 MG tablet Take 1-2 Tabs by mouth every 4 hours as needed for Pain. 65 Tab 0 01/17/2014 Active Active Problems No known active problems Immunizations Name Administration Dates Next Due Influenza, Unspecified Formulation 04/05/2013 PPSV23 (Pneumovax) 04/05/2013 Td 05/06/2004 Social History Tobacco Use Types Packs/Day Years Used Date Smoking Tobacco: Former Cigarettes Q uit: 05/02/1965 Alcohol Use Standard Drinks/Week Comments No 0 (1 standard drink = 0.6 oz pur e alcohol) QUIT 14 YEARS AGO Sex and Gender Information Value Date Recorded Sex Assigned at Not on file Gender Identity Not on file Sexual Orientation Not on file Last Filed Vital Signs Vital Sign Reading Time Taken Comments Blood Pressure 110/57 04/20/2021 5:22 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 Pulse 96 04/20/2021 5:22 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 Temperature 36.9 ??C (98.5 ??F) 04/20/2021 2:42 AM CS T Respiratory Rate 24 04/20/2021 5:22 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 Oxygen Saturation 96% 04/20/2021 5:22 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 Inhaled Oxygen Concentration - - Weight 73.5 kg (162 lb) 04/20/2021 2:42 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 Height 182.9 cm (6') 04/20/2021 2:42 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 Body Mass Index 21.97 04/20/2021 2:42 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 Plan of Treatment Health Maintenance Due Date Last Done Comments Hep C Screening (Preventive Services) 1945 Medicare Annual Wellness Visit 1945 Zoster/Shingles (1 of 2) 01/13/1996 COVID-19 Vaccine ( season) 2022 06/24/2020 Influenza (#1) 2022 02/26/2019, 01/30, 02/16/2018, Additional history exists DTaP/Tdap/Td (2 - Tdap) 06/16/2028 06/16/19 19, 01/30/2005, 05/06/2004 Pneumococcal 65+ Yrs Completed 01/20/2015, 04/05/2013, 06/02/2012 HepA Aged Out No longer eligi ble based on patient's age to complete this topic HepB Aged Out No longer eligi ble based on patient's age to complete this topic Hib Aged Out No longer eligi ble based on patient's age to complete this topic IPV (Polio) Aged Out No longer eligi ble based on patient's age to complete this topic MCV4 Aged Out No longer eligi ble based on patient's age to complete this topic Medical Devices Implanted Type Area Database Management System Specialist Device Identifier Shelf Expiration Date Model / Serial / Lot Comp Patella Gen Ii 41mm - [id number] Implanted:Qty : 1 on 01/15/2014 by Vini Duffy MD at [facility] DEVICE Right: [employer] 07/20/2023 [id number] / NA / [id number] Comp Fem Legion Rt Sz8 - [id number] Implanted:Qty : 1 on 01/15/2014 by Vini Duffy MD at [facility] DEVICE Right: [employer] 08/20/2023 [id number] / NA / [id number] Cement Bone Palacos R - [id number] Implanted:Qty : 1 on 01/15/2014 by Vini Duffy MD at [facility] DEVICE Right: [employer] 07/19/2018 [id number] / NA / [id number] Insert Legion Hiflex Cr 7-8 13 - [id number] Implanted:Qty : 1 on 01/15/2014 by Vini Duffy MD at [facility] DEVICE Right: [employer] 05/21/2021 [id number] / NA / [id number] Baseplt Tib Metl Gensis Rt Sz8 - [id number] Implanted:Qty : 1 on 01/15/2014 by Vini Duffy MD at [facility] DEVICE Right: [employer] 04/30/2023 [id number] / NA / [id number] Advance Directives * Full Code (Latest Code Status on File) Date Activated Date Inactivated Comments 01/15/2014 4:23 PM 01/17/2014 3:47 PM * Full Code Date Activated Date Inactivated Comments 01/15/2014 11:27 AM 01/15/2014 4:23 PM Care Teams Biology Intern Relationship Specialty Start Date End Date Aravind Decker MD [address] [place] [address] PCP - General Family Practice 01/14/14
--- OUTSIDE RECORDS SUMMARY | 2023-08-10 17:27 | XMS_ITS | Continuity of Care Document ---
Author Name Unknown Organization [facility] Address [address] [place] [address] Phone Care Team Providers Care Film Sorter Name Role Phone David GEORGE, Robert Unavailable Unavailable Allergies, Adverse Reactions, Alerts Substance Reaction Status Criticality MEPERIDINE HCL Active No Informatio n morphine Active No Information Procedures Procedure Date Office/Outpatient Visit,[facility], [facility] 2013 Office/outpatient visit,est, low 2007 Office/outpatient visit,est, low 2007 X-ray exam of total spine Office/outpatient visit,est, low 2007 Office/outpatient visit,est, low 2006 Office consultation, moderate-high X-ray exam lwr spine, min 4 views Advance Directives Directive Yes / No Effective Date File Name No Information Encounters Encounter Description Practice Location Reason(s) For Visit Diagnoses Date Provider Providers Copied on Encounter [facility], [address], [place], [place], [id number], [place] tel:[phone] [facility] No Information 6 Mehbod Amir. [facility], [address] [place] [address] [address], [place], [place], [id number] , [place]. tel:[phone] Office/Outpat ient Visit,[facility], [facility] Z [facility], [address], [place], [address], [place] tel:[phone] [facility] 4 Mehbod Amir. [facility], [address], [place], [place], [id number] , [place]. tel:[phone] Referring Provider: Aravind Morales, [employer] [facility] [address], [place], [address]. tel:[phone] Office/outpat ient visit,est, low Z [facility], [address], [place], [address], [place] tel:[phone] [facility] No Information Apr-0 1-200 8 Mehbod Amir. [facility], [address], [place], [place], [id number] , [place]. tel:[phone] Referring Provider: Aravind Morales, [employer] [facility] [address], [place], [address]. tel:[phone] Office/outpat ient visit,est, low Z [facility], [address], [place], [address], [place] tel:[phone] [facility] No Information 0-200 8 Mehbod Amir. [facility], [address], [place], [place], [id number] , [place]. [phone] Referring Provider: Aravind Morales, [employer] [facility] [address] , [place], [address]. tel:[phone] Office/outpat ient visit,est, low Z [facility], [address], [place], [address], [place] tel:[phone] [facility] No Information 2 8-200 8 Mehbod Amir. [facility], [address], [place], [place], [id number] , [place]. [phone] Referring Provider: Aravind Morales, [employer] [address], [place], [address]. tel:[phone] Office/outpat ient visit,est, low Z [facility], [address], [place], [address], [place] tel:[phone] [facility] No Information 200 7 Mehbod Amir. [facility], [address], [place], [place], [id number] , . tel:[phone] Referring Provider: Aravind Morales, [address], [place], [address]. tel:[phone] Office consultation, moderate-high Z [facility], [address], [place], [address], tel:[phone] [facility] No Information 200 7 Mehbod Amir. [facility], [address] [place] [address] [address], [place], [place], [id number] , . tel:[phone] Referring Provider: Aravind Morales, [address], [place], [address]. tel:[phone] Family History Family Member Type Diagnosis Age At Onset No Information Payers Payer name Insurance type Covered republican ID Authoriza tion(s) No Information Social History [...]
--- OUTSIDE RECORDS SUMMARY | 2023-08-10 17:27 | XMS_ITS | Clinical Summary ---
Author Name Unknown Organization [employer] [facility] Address [place], [place] [address] Care Team Providers Care Land Survey Technician Name Role Phone Kiersten Fitch MD Primary Care Provider [facility], [place] Unavailable Allergies Active Allergy Reactions Criticality Noted Date Comments Meperidine Dyspnea,Edema,Tachyc isabel ia 07/08/2006 Facial swelling, after hypo with Phenergan Morphine Nausea And Vomiting 06/20/2007 Dronedarone Shortness Of Breath 04/29/2009 Promethazine Dyspnea,Edema,Tachyc isabel ia 07/08/2006 Facial swelling, after hypo with Demerol Pollen Extracts Other - Describe In Comment Field 04/01/2016 Sertraline Nausea Only 03/07/2017 Medications Medication Sig Dispensed Refills Start Date End Date Status cholecalciferol (VITAMIN D3) 2,000 unit capsule Take 2 capsules by mouth once daily. 0 2 Active Zinc Gluconate 100 mg tab Take 50 mg by mouth once daily. 0 1 Active acetaminophen (TYLENOL EXTRA STRGTH) 500 mg tablet Take 500-1,000 mg by mouth every 6 hours if needed for Headache or Pain. Max acetaminophen dose: 4000mg in 24 hrs. Active aspirin chewable 81 mg chewable tabletIndications :S/P ascending aortic aneurysm repair Chew 1 Tablet (81 mg) by mouth once daily with a meal. 0 1 Active traMADoL (ULTRAM) 50 mg tabletIndications :Chronic midline low back pain with right-sided sciatica Take 1 Tablet (50 mg) by mouth once daily if needed for Pain (Restless leg syndrome). Use max 2 nights per weeks. 15 Tablet 3 Active Graduated Compression StockingsIndicati ons:Swelling of lower leg FOR PERSONAL USE. ANKLE 26CM, CALF 38CM, ANKLE TO CALF LENGTH 10CM= BLACK - ESSENTIALS- 20/30MMHG- XL- KNEE LENGTH- CLOSED TOE 2 Each 2 3 Active pregabalin (LYRICA) 50 mg capsule Take 1 Capsule (50 mg) by mouth three times daily. Take along with 100 mg capsules for a total daily dose of 150 mg three times daily 4 Active pregabalin (LYRICA) 100 mg capsule Take 1 Capsule (100 mg) by mouth three times daily. Take along with 50 mg capsule for total dose 150 mg three times daily 4 Active ascorbic acid, vitamin C, (Vitamin C) 1,000 mg tabletIndications :Preventative health care Take 2 Tablets (2,000 mg) by mouth once daily. 4 Active psyllium powdIndications:C onstipation, acute Mix 1 tsp in liquid then take by mouth once daily if needed for Constipation. 4 Active medication order composerIndicatio ns:Constipation, acute My Geneal Detox - 1 capsule once daily Digest basic - 1 capsule once daily 4 Active pregabalin (Lyrica) 25 mg capsuleIndication s:RLS (restless legs syndrome) Take 1 Capsule (25 mg) by mouth at bedtime. As needed for restless leg syndrome 4 Active SUMAtriptan (IMITREX) 50 mg tabletIndications :Migraine with aura, not intractable, without status migrainosus Take 1 Tablet (50 mg) by mouth every 2 hours if needed for Migraine. Give at minimum 2hrs apart. Max Dose: 200mg per 24hrs. 10 Tablet 4 Active dofetilide (TIKOSYN) 250 mcg capsuleIndication s:Persistent atrial fibrillation (HC) Take 1 Capsule (250 mcg) by mouth every 12 hours. Pt is due for labs/EKG in August 2023 180 Capsule 4 Active furosemide (LASIX) 20 mg tabletIndications :Acute diastolic CHF (congestive heart failure) (HC) Take 1 Tablet (20 mg) by mouth every morning. 90 Tablet 4 Active benzonatate (TESSALON) 200 mg capsuleIndication s:Acute cough Take 1 Capsule (200 mg) by mouth 3 times daily if needed for Cough. 20 Capsule 4 Active guaiFENesin SR (MUCINEX 12 HOUR) 1,200 mg [id number]:A cute cough Take 1 Tablet (1,200 mg) by mouth every 12 hours if needed for Expectoration. 30 Tablet 4 Active warfarin (COUMADIN) 1 mg tabletIndications :Persistent atrial fibrillation (HC),Anticoagulat ion monitoring, INR range 2-3,Atypical atrial flutter (HC) Take by mouth 2 mg (1 mg x 2) every Tue; 3 mg (1 mg x 3) all other days in the evening OR as directed 260 Tablet 4 Active metoprolol succinate (Toprol XL) 25 mg Sustained-Release tabletIndications :Migraine with aura, not intractable, without status migrainosus,Atypi bren atrial flutter (HC) Take 2 Tablets (50 mg) by mouth once daily. 180 Tablet 3 4 Active metoprolol succinate (Toprol XL) 25 mg Sustained-Release tabletIndications :Atypical atrial flutter (HC) Take 1 Tablet (25 mg) by mouth once daily. May take an extra 1/2 to 1 full tablet (12.5 to 25 mg) twice daily as needed for palpitations. 90 Tablet 3 3 08/03/19 24 Discontinue d(*Medicati on adjustment) warfarin (COUMADIN) 1 mg tabletIndications :Persistent atrial fibrillation (HC),Anticoagulat ion monitoring, INR range 2-3,Atypical atrial flutter (HC) Take by mouth 2 mg every Tue; 3 mg all other days in the evening OR as directed 3 07/23/19 24 Discontinue d(Reorder (E-cancel not sent)) furosemide (LASIX) 40 mg tabletIndications :Acute diastolic CHF (congestive heart failure) (HC) Take 1 Tablet (40 mg) by mouth every morning. 90 Tablet 2 3 07/18/19 24 Discontinue d(Reorder (E-cancel not sent)) doxycycline (ADOXA) 100 mg tabletIndications :Bronchitis Take 1 Tablet (100 mg) by mouth two times daily for 7 days. 14 Tablet 4 07/29/19 24 warfarin (COUMADIN) 1 mg tabletIndications :Persistent atrial fibrillation (HC),Anticoagulat ion monitoring, INR range 2-3,Atypical atrial flutter (HC) Take by mouth 07/22: 2 mg; Otherwise 2 mg every Tue; 3 mg all other days in the evening OR as directed 4 07/26/19 24 Discontinue d(Duplicate therapy (E-cancel not sent)) Hospital, Clinic, or Other Facility Administered Medication Ordered Dose Route Frequency Start Date End Date Status albuterol-ipratropium (2.5-0.5 mg) in 3 mL NEBULIZATION solution 3 mL (DUONEB)Indications:Acute cough 3 mL NEB ONE TIME 07/22/2023 07/22/2023 Ended Active Problems Problem Noted Date Diagnosed Date Hypertensive heart disease with heart failure Acute diastolic CHF (congestive heart failure) 0 05/14/2022 Aortic ectasia, unspecified site 05/14/2022 Atrial tachycardia 03/16/2022 Atrial flutter 03/15/2022 Primary hypertension 03/14/2022 Thoracic aortic aneurysm, without rupture 2021 Adjustment disorder with anxious mood 04/16/2021 Benign paroxysmal positional vertigo 04/16/2021 History of COVID-19 (01/2020) 03/30/2021 S/P ascending aortic aneurysm repair 03/27/2021 Overview: Ascending aorta. Vascutek Terumo. Gelweave Gelatin Impregnatned Woven Vascular Prosthesis. Size: 34 mm straight. REF: [id number]. LOT: [id number]. SN: [id number]. EXP: 08/30/2023. Implanted by Dr. Saud Carter on 03/27/2021. Status post ligation of left atrial appendage Generalized anxiety disorder 08/05/2020 Adjustment disorder with mixed anxiety and depre ssed mood 11/18/2017 Kidney stone on right side 04/05/2016 Erectile dysfunction 04/09/2015 Epididymal cyst 04/09/2015 RLS (restless legs syndrome) 12/26/2014 Total knee replacement status 01/18/2014 Anticoagulation monitoring, INR range 2-3 2013 ACP (advance care planning) 10/20/2011 Overview: Patient has identified Health Care Agent(s): No Add Health Care Agents: No Patient has Advance Care Plan Documents (Health Care Directive, POLST): No, referral made to Social Work Services. Patient has identified Specific Treatment Preferences: Yes Specific Treatment Preferences: a.) Code Status: CPR/Attempt Resuscitation Atypical atrial flutter 10/19/2011 Dizziness 10/19/2011 Other malaise and fatigue 10/19/2011 Pain medication agreement 10/12/2011 Overview: Controlled substance contract signed and scanned 06/08/11.Nallely Regalado Refill Renewal RN 02/15/2014 4:15 PM Encounter for long-term (current) use of other m edications 10/12/2011 Infected sebaceous cyst 11/08/2009 Spinal stenosis, lumbar maria esther on, without neurogenic claudication 07/03/2008 Hypertension, Persistent atrial fibrillation Overview: -s/p EPS and complex afib ablation 11/29/2008 w/ Dr. Good -s/p Repeat ablation 04/18/2010 See 06-28-2022 if needing to restart Dofetilide-- Displacement of lumbar inter vertebral disc without myelopathy Overview: W/C DOI 05-23-06 Chest wall pain following surgery Anxiety and depression History of migraine Nausea Resolved Problems Problem Noted Date Diagnosed Date Resolved Date Mobitz type 2 second degree atrioventricular block 03/14/2022 03/16/2022 Thrombocytopenia, unspecified 06/04/2021 05/10/2023 RLL pneumonia 05/19/2021 06/30/2022 Acute respiratory failure with hypoxia 04/22/2021 07/20/2021 Pneumonia 04/22/2021 06/30/2022 Atrial flutter 07/31/2014 11/14/2014 Hx. of Persistent Atrial Fibrillation 10/05/2013 01/09/2014 Atrial fibrillation 08/01/2012 01/10/20 14 Encounter for long-term (cur rent) use of other medications 11/08/2011 01/09/2014 Anemia, unspecified 10/19/2011 07/01/19 23 LONG-TERM USE ANTICOAGULANTS 12/10/2008 09/24/2009 Overview: INR Goal Range: 2.0 - 3.0 Chest pain, unspecified 07/09/2008 03/0 11/2021 Acute postoperative pain Acute encephalopathy 021 Encounters Date Type Department Care Team Description 08/10/2023 Nurse Triage [facility] [address] [facility] [place] [address] Kiersten Fitch MD Chest Pain 08/05/2023 12:05 PM CDT Nurse/Clinic Staff Only [address] Jolanta LUGO GUILLERMO [phone] Device Check (48hr holter drop off ) 08/05/2023 Telephone [facility] [address] [facility] [place] [address] Amy Hickman RN Medication Management (Tikosyn/) 08/03/2023 1:40 PM CDT Office Visit [facility] at [facility] [address] [facility] [place] [address] Dawit Rosario MD Consult (Migraine with aura, traumatic head injury Ophelia Urias PA-C/MR Head 07/21/23 (pushed 07/26/23)/Fall on 03/29 [place]23 [place] 10[place]16/22 @ [facility]/CT brain 10/16/22 @ [facility]) 08/02/2023 11:30 AM CDT Orders Only [address] Eugenioefrain HENSONGUILLERMO ADAME [phone] Marlee Tang Lab 08/02/2023 10:30 AM CDT Nurse/Clinic Staff Only [address] Jolanta HENSONGUILLERMO ADAME [phone] Device Check (48 hr holter monitor) 08/02/2023 Anticoagulation (warfarin) [facility] [address] [facility] [place] [address] 1, [facility] Anticoagulation 08/02/2023 Travel 07/26/2023 11:45 AM CDT Orders Only [facility] [address] [facility] [place] [address] Lab, [facility] 07/26/2023 Anticoagulation (warfarin) [facility] [address] [place] [address] 1, [facility] Anticoagulation 07/26/2023 Travel 07/23/2023 Refill [facility] [address] [place] [address] Kiersten Fitch MD Refill Request (Warfarin) 07/22/2023 7:10 PM CDT Ancillary Procedure [address] [phone] 07/22/2023 6:35 PM CDT Office Visit [facility] [address] [place] [phone] Rupal Parr NP Person Under Investigation (PUI) (Increased shortness of breath, chest is aching from excessive coughing, headache, sinus congestion/drainage x 2-3 days) 07/22/2023 Anticoagulation (warfarin) [facility] [address] [place] [address] 1, [facility] Anticoagulation 07/22/2023 Travel 07/19/2023 9:30 AM CDT Patient Outreach [facility] Care Management - Advanced Care Team [address] [place] [address] Marina Guerrier LSW Complex Care Management (F/u & transition) 07/18/2023 Telephone [facility] [address] [phone] Renzo Good MD Refill Request (Lasix ) 07/15/2023 1:10 PM CDT Orders Only [address] [phone] Lab, [facility] 07/15/2023 Anticoagulation (warfarin) [facility] [address] [place] [address] 1, [facility]tico[facility] 07/15/2023 Travel 07/13/2023 Telephone [facility] [address] [place] [address] Kiersten Fitch MD New Med Request (Vitamin B 12 ) 07/12/2023 Nurse Triage [facility] [address] [place] [address] Kiersten Fitch MD Medication Management (furosemide (LASIX) 40 mg tablet ) 07/11/2023 10:00 AM CDT Patient Outreach [facility] Care Management - Advanced Care Team [address] [place] [address] Marina Guerrier LSW Complex Care Management (F/u HCD seen in chart? Cable Installation Technician appt made?, no other needs - transition) 07/11/2023 Patient Outreach [facility] Care Management - Advanced Care Team [address] [place] [address] Tiffany Mendez RN Complex Care Management (INDIA) 07/08/2023 2:24 PM FUEL OPERATOR - 07/08/2023 5:25 PM FUEL OPERATOR Emergency [facility] [address] [place] [address] Chavez Paris MD Laceration of tongue, initial encounter (Primary Dx); Anticoagulated Discharge Disposition: Home Self Care 07/08/2023 Travel 07/08/2023 Telephone [facility] [address] [facility] [address] [place] [phone] Amy Hickman, heating element winder Management 07/07/2023 Patient Outreach [facility] Management - Advanced Care Team [address] [place] [address] Gladis Martinez Complex Care Management (Care Coordination) 07/04/2023 9:30 AM FUEL OPERATOR Office Visit [facility] [address] [place] [address] Kiersten Fitch MD Medicare ANNUAL (subsequent) Visit (78 yr/Referral for a custom frame assembler, wants to learn to eat better./Thumping seems to getting worse./Wants to talk about the supplement Calm and Ka'Sumit supplement. (Web page brought up).) 07/04/2023 Travel 06/30/2023 9:30 AM FUEL OPERATOR Patient Outreach [facility] Care Management - Advanced Care Team [address] [place] [phone] Gladis Martinez Complex Care Management (Home visit) 06/30/2023 Telephone [facility] [address] [place] [address] Kiersten Fitch MD Consult 06/28/2023 10:00 AM FUEL OPERATOR Patient Outreach [facility] Care Management - Advanced Care Team [address] [place] [phone] Marina Guerrier LSW Complex Care Management (F/u) 06/27/2023 9:30 AM FUEL OPERATOR Patient Outreach [facility] Care Management - Advanced Care Team [address] [place] [phone] Brianna Hernadez, passementerie worker Management (F/U call) 06/24/2023 3:00 PM FUEL OPERATOR Patient Outreach [facility] Care Management - Advanced Care Team [address] [place] [phone] Brianna Hernadez, passementerie worker Management (F/U call) 06/23/2023 10:30 AM FUEL OPERATOR Orders Only [facility] [address] [place] [address] Lab, [facility] 06/23/2023 8:15 AM FUEL OPERATOR Nurse/Clinic Staff Only [facility] [address] [place] [address] Cardiovascular Diagnostic Testing (ECG PER LIONEL HUTSON NP ) 06/23/2023 Orders Only [facility] [address] [place] [address] Ophelia Urias PA 1 scan: (1-Ord) RAYUS RAD, BRAIN WO, 06/21/2023 06/23/2023 Anticoagulation (warfarin) [facility] [address] [place] [address] 1, [facility] Anticoagulation 06/23/2023 Travel 06/21/2023 1:00 PM FUEL OPERATOR Patient Outreach [facility] Care Management - Advanced Care Team [address] [place] [phone] Marina Guerrier LSW Complex Care Management (SW f/u) 06/17/2023 2:00 PM FUEL OPERATOR Patient Outreach [facility] Care Management - Advanced Care Team [address] [place] [phone] Brianna Hernadez, passementerie worker Management (F/U call) 06/16/2023 Telephone [facility] [address] [facility] [address] [place] [phone] Amy Hickman RNreal estate closer Diagnostic Testing 06/16/2023 Telephone [facility] [address] [place] [address] Lashae Ibrahim, [facility] Late Cancel Appointment 06/14/2023 10:30 AM FUEL OPERATOR Patient Outreach [facility] Care Management - Advanced Care Team [address] [place] [phone] Marina Guerrier LSW Complex Care Management (SW f/u) 06/10/2023 10:00 AM FUEL OPERATOR Patient Outreach [facility] Care Management - Advanced Care Team [address] [place] [address] Brianna Hernadez, passementerie worker Management (F/U call) 06/08/2023 1:15 PM FUEL OPERATOR Office Visit [facility] [address] [place] [address] Juice Pike, SCOOTER Mental Health Intake 06/08/2023 10:05 AM FUEL OPERATOR Office Visit [facility] [address] [place] [address] Kiersten Fitch MD Follow Up (Still having the ocular headaches and more frequently. Has MRI on Tuesday. Has checked over at [facility] for orders for PT and they stated they have not received the order. Order for PT printed and will fax so patient can make appointment.) 06/08/2023 Travel 06/06/2023 Patient Outreach [facility] Care Management - Advanced Care Team [address] [place] [phone] Gladis Martinez Complex Care Management (Care Coordination) 06/03/2023 10:00 AM FUEL OPERATOR Patient Outreach [facility] Care Management - Advanced Care Team [address] [place] [phone] Marina Guerrier LSW Complex Care Management ( f/u) 06/02/2023 10:00 AM FUEL OPERATOR Patient Outreach [facility] - Advanced Care Team [address] [place] [phone] Gladis Martinez Complex Care Management (Follow up call) 06/02/2023 Patient Outreach [address] [phone] Monica Marks, Pierre Pharmacist Medication Management (Sumatriptan prescription - lost) 05/27/2023 10:00 AM FUEL OPERATOR Orders Only [facility] [address] [place] [address] Lab, [facility] 05/27/2023 9:00 AM FUEL OPERATOR Pharmacist Medication Management [facility] [address] [place] [address] Monica Marks, Pierre Pharmacist Medication Management (CMR initial - ACT patient - in-clinic) 05/27/2023 Anticoagulation (warfarin) [facility] [address] [place] [address] 1, [facility] Anticoagulation (Lab) 05/27/2023 Travel 05/26/2023 10:00 AM FUEL OPERATOR Patient Outreach [facility] Care Management - Advanced Care Team [address] [place] [address] Brianna Hernadez RN Complex Care Management (Initial assessment completed.) 05/19/2023 Patient Outreach [facility] Care [facility] - Advanced Care Team [address] [place] [phone] Argelia Rome Complex Care Management (ACO Reach Engagement Outreach - Post ED) from Last 3 Months Immunizations Name Administration Dates Next Due COVID-19 vaccine (Fanitics NTAllSource Analysis 30mcg/0.3mL) PF, MDV 06/24/2020 Influenza RIV4 (Age 18+ Year s) PRESERV FREE 01/24/2020 Influenza Virus, Unspecified 02/16/2018,04/05/20 13 Influenza, High-dose Inactivated 018,01/27/2017,01/20/2015,2013 Influenza, IIV3 (Age >=3 years) 04/05/2013 Influenza, IIV4 02/26/2019,01/23/2016 Influenza, IIV4 (=>6mos) MDV 01/16/2017 Influenza, Inactivated AIIV4 (Age 65+ Years) Preserv Free 03/29/2022 Pneumococcal Poly,23-Valent (Pneumovax) 04/05/2013,06/02/2012 Pneumococcal conj 13-Valent (Prevnar 13) 01/20/2015 Td (Age >=7 Years) 01/30/2005,05/06/2004 Tdap 06/16/2018 Family History Medical History Relation Name Comments Heart Disease Brother 1 Cancer-prostate Brother 2 Unknown Father emphysema Genetic Other 1 No family histo ry of premature atherosclerotic heart disease. Genetic Other 2 No family histo ry of premature atherosclerotic heart disease or diabetes. Other Other 3 No known family hx of anesthesia rxn or bleeding disorder Other Sister after bloo d clot following TKA Relation Name Status Comments Brother 1 Brother 2 Father Mother Other 1 Other 2 Other 3 Sister Social History Tobacco Use Types Packs/Day Years Used Date Smoking Tobacco: Former Cigarettes 0.5 12.2 0 [birth year]/13/1956 - 04/01/1968 Smokeless Tobacco: Never Tobacco Cessation:Counseling Given: Yes Comments:Quit smokin Alcohol Use Standard Drinks/Week Comments No 0 (1 standard drink = 0.6 oz pur e alcohol) PHQ-2 Answer Date Recorded PHQ-2 TOTAL SCORE 3 07/04/2023 Social Connections Answer Date Recorded Frequency of Communication with Friends and Fami ly 0 12/17/2022 Financial Resource Strain Answer Date R ecorded Difficulty of Paying Living Expenses 3 12/17/2022 Difficulty of Paying Living Expenses Not on file 12/17/2022 Food Insecurity Answer Date Recorded Worried About Running Out of Food in the Last Ye ar 2 12/17/2022 Transportation Needs Answer Date Record ed Lack of Transportation (Medical) 1 12/17/2022 Housing Stability Answer Date Recorded Unable to Pay for Housing in the Last Year 1 12/17/2022 Sex and Gender Information Value Date Recorded Sex Assigned at Not on file Gender Identity Not on file Sexual Orientation Not on file Obstetrics History Last Filed Vital Signs Vital Sign Reading Time Taken Comments Blood Pressure 124/71 08/03/2023 1:40 PM CDT Pulse 87 08/03/2023 1:40 PM CDT Temperature 36.7 ??C (98 ??F) 07/22/2023 6:40 PM CDT Respiratory Rate 18 07/22/2023 7:42 PM CDT Oxygen Saturation 98% 08/03/2023 1:40 PM CDT Inhaled Oxygen Concentration - - Weight 85 kg (187 lb 8 oz) 08/03/2023 1:40 PM CD T Height 182.9 cm (6') 07/08/2023 2:30 PM FUEL OPERATOR Body Mass Index 25.43 07/08/2023 2:30 PM FUEL OPERATOR Plan of Treatment Upcoming Encounters Date Type Department Care Team (Late st Contact Info) Description 08/11/2023 9:00 AM CDT Office Visit [facility] [address] [place] [address] Ophelia Urias PA [address] [place] [address] 08/15/2023 7:50 AM CDT Orders Only [facility] [address] [place] [address] [place] [phone] 08/15/2023 8:00 AM CDT Office Visit [facility] [address] [place] [address] [place] [phone] Angelique Brandt NP [address] [place] [address] 10/18/2023 9:00 AM CDT Office Visit [facility] at [facility] [address] [place] [address] Dawit Rosario MD [address] [facility] [place] [address] Health Maintenance Due Date Last Done Comments Zoster (shingles) series for age 50+ (1 of 2) 01/13/1996 COVID-19 vaccine series (2 - 2022- season) 2022 06/24/2020 Influenza for age 65+ 01/01/2024 03/29/2022 , 01/24/2020, 02/26/2019, Additional history exists BMI (ht and wt on same day) for age 18+ 02/15/2024 02/14/2023, 12/15/2022, 10/08/2022, Additional history exists Medicare Wellness for age 65+ 07/04/2024, 06/30/2022, 06/26/2021, Additional history exists Depression screening for age 12+ 07/07/2024 07/08/2023, 07/07/2023, 07/04/2023, Additional history exists Tetanus booster 06/16/2028 06/16/2018, 05/2004, 05/06/2004 Pneumococcal series for age 65+ Completed 01/20/2015, 04/05/2013, 06/02/2012 Hepatitis C screening for ag e 18-79 Completed 08/04/2016 Fecal testing non-DNA (FIT,FOBT,iFOBT) for age 45-75 Discontinued 09/14/2017, 12/11/2014 Tdap Completed 06/16/2018 Medical Devices Implanted Type Area Vegetable Worker Device Identifier Shelf Expiration Date Model / Serial / Lot Occluder Erma 50mm Atriclip Flex V Exclusion Sys - [id number] Implanted:Qty: 1 on 03/27/2021 by Saud Carter MBBS at [facility] Left: [employer] 10/31/2023 [id number] / [id number] Description:Implant location : Left atrial appendage Left atrial appendage. AtriCure AtriClip FLEX-V. ERMA Exclusion System. Size: 50. REF: [id number]. LOT: [id number]. EXP: 10/31/2023. Implanted by Dr. Saud Carter on 03/27/2021. Graft Vascular Gelweave 34mm X 30cm Implanted:Qty: 1 on 03/27/2021 by Saud Carter MBBS at [facility] N/A: Aorta Layer [employer] 08/30/2023 [id number] / [id number] / [id number] Procedures Procedure Name Priority Date/Time Associated Diagnosis Comments HOLTER MONITOR 48 HOURS Routine 08/08/2023 12:00 AM CDT Palpitations PROTIME-INR STAT 08/02/2023 10:45 AM CDT Persistent atrial fibrillation (HC) Anticoagulation monitoring, INR range 2-3 Atypical atrial flutter (HC) INR,POCT Routine 07/26/2023 11:52 AM CDT Persistent atrial fibrillation (HC) Anticoagulation monitoring, INR range 2-3 Atypical atrial flutter (HC) XR CHEST 2 VIEWS PA AND LATERAL STAT 07/22/2023 7:15 PM CDT Acute cough PROTIME-INR STAT 07/22/2023 7:12 PM CDT Persistent atrial fibrillation (HC) Anticoagulation monitoring, INR range 2-3 Atypical atrial flutter (HC) CBC WITH AUTO DIFFERENTIAL STAT 07/22/2023 7:12 PM CDT Acute cough BASIC METABOLIC PANEL STAT 07/22/2023 7:12 PM CDT Acute cough CBC WITH AUTO DIFFERENTIAL STAT 07/22/2023 7:12 PM CDT Acute cough PROTIME-INR STAT 07/15/2023 1:06 PM CDT Persistent atrial fibrillation (HC) Anticoagulation monitoring, INR range 2-3 Atypical atrial flutter (HC) PROTIME-INR STAT 07/08/2023 2:39 PM FUEL OPERATOR EKG 12 LEAD Routine 06/24/2023 9:55 AM FUEL OPERATOR Persistent atrial fibrillation (HC) Atypical atrial flutter (HC) Atrial tachycardia PROTIME-INR STAT 06/23/2023 8:22 AM FUEL OPERATOR Persistent atrial fibrillation (HC) Anticoagulation monitoring, INR range 2-3 Atypical atrial flutter (HC) POTASSIUM Routine 06/23/2023 8:22 AM FUEL OPERATOR Persistent atrial fibrillation (HC) Atypical atrial flutter (HC) Atrial tachycardia CREATININE Routine 06/23/2023 8:22 AM FUEL OPERATOR Persistent atrial fibrillation (HC) Atypical atrial flutter (HC) Atrial tachycardia BUN Routine 06/23/2023 8:22 AM FUEL OPERATOR Persistent atrial fibrillation (HC) Atypical atrial flutter (HC) Atrial tachycardia MR HEAD BRAIN WWO Routine 06/21/2023 12: 00 AM FUEL OPERATOR Migraine with aura, not intractable, without status migrainosus Accidental fall, subsequent encounter Anticoagulation monitoring, INR range 2-3 Traumatic injury of head, subsequent encounter INR,POCT Routine 05/27/2023 10:33 AM FUEL OPERATOR Persistent atrial fibrillation (HC) Anticoagulation monitoring, INR range 2-3 Atypical atrial flutter (HC) OCCULT BLOOD IFOBT STOOL Routine 09/14/2017 10:02 AM CDT Screening for colon cancer ANTI HCV Routine 08/04/2016 10:05 AM CDT Need for hepatitis C screening test from Last 3 Months or Most Recently Relevant to Health Maintenance Results * (ABNORMAL) PROTIME-INR (08/02/2023 10:45 AM CDT) Only the most recent of5 resultswithin the time period is included. INR 3.1(H) <1.3 08/02/2023 11:03 AM CDT [facility] PROTIME 33.8(H) 10.3 - 12.3 sec 08/02/2023 11:03 AM CDT [facility] Blood BLOOD SPECIMEN / Unknown Venipuncture / Unknown 08/02/2023 10:45 AM CDT 08/02/2023 10:45 AM CDT Narrative [facility] - 08/02/2023 11:03 AM CDT ?Therapeutic Range 2.0-3.0 for most anticoagulated patients 2.5-3.5 or 4.0 for high risk patients The INR is only used for patients on stable oral anticoagulant therapy. It makes no significant contribution to the diagnosis or treatment of patients whose Protime is prolonged for other reasons. INR results are increased when heparin levels exceed 1.0 U/mL, which corresponds to an aPTT >125 seconds if the patient is on UFH. Kiersten Fitch MD HEMATOLOGY Performing Organization Address City/[facility]/ZIP Co de Phone Number [facility] [address] [place] [address] * (ABNORMAL) INR,POCT (07/26/2023 11:52 AM CDT) Only the most recent of2 resultswithin the time period is included. INR 2.0(H) <1.3 07/26/2023 11:56 AM CDT [facility] Blood BLOOD SPECIMEN / Unknown 07/26/2023 11:52 AM CDT 07/26/2023 11:56 AM CDT Narrative [facility] - 07/26/2023 11:56 AM CDT ?Therapeutic Range 2.0-3.0 for most anticoagulated patients 2.5-3.5 or 4.0 for high risk patients Kiersten Fitch MD LABORATORY [facility] [address] [place] [address], * XR CHEST 2 VIEWS PA AND LATERAL (07/22/2023 7:15 PM CDT) Anatomical Region Laterality Modality CHEST, THORAX, Lung, HEART Compu amarilys Radiography 07/22/2023 8:10 PM CDT Impressions 07/22/2023 8:10 PM CDT No evidence of acute cardiopulmonary disease. Dictated by Juan J Stevenson MD @ 07/22/2023 8:10:11 PM (Electronically Signed) Narrative 07/22/2023 8:10 PM CDT For Patients: ??As a result of the Cures Act, medical imaging exams and procedure reports are released immediately into your electronic medical record. ??You may view this report before your referring provider. ??If you have questions, please contact your health care provider. INDICATIONS: Acute cough. TECHNIQUE: Chest 2 view. COMPARISON: Chest radiograph 06/04/2022. FINDINGS: No pneumothorax, pleural effusion or focal airspace consolidation. Hyperinflation, as before. Prior median sternotomy and left atrial appendage clip. Aortic atherosclerosis. Cardiac and mediastinal contours are otherwise stable. Upper abdomen and osseous structures as imaged show no acute abnormality. Procedure Note Juan J Stevenson, DO - 07/22/2023 For Patients: As a result of the Cures Act, medical imagingexams and procedure reports are released immediately into your electronicmedical record. You may view this report before your referring provider.If you have questions, please contact your health care provider. INDICATIONS: Acute cough. TECHNIQUE: Chest 2 view. COMPARISON: Chest radiograph 06/04/2022. FINDINGS: No pneumothorax, pleural effusion or focal airspace consolidation.Hyperinflation, as before. Prior median sternotomy and left atrialappendage clip. Aortic atherosclerosis. Cardiac and mediastinal contoursare otherwise stable. Upper abdomen and osseous structures as imaged showno acute abnormality. IMPRESSION: No evidence of acute cardiopulmonary disease. Dictated by Juan J Stevenson MD @ 07/22/2023 8:10:11 PM (Electronically Signed) Rupal Parr NP GENERAL IMAGING * CBC WITH AUTO DIFFERENTIAL (07/22/2023 7:12 PM CDT) WHITE BLOOD COUNT 4.9 4.5 - 11.0 thou/cu mm 07/22/2023 7:21 PM [facility] RED BLOOD COUNT 4.54 4.30 - 5.90 mil/cu mm 07/22/2023 7:21 PM [facility] HEMOGLOBIN 14.1 13.5 - 17.5 g/dL 07/22/2023 7:21 PM [facility] HEMATOCRIT 43.7 37.0 - 53.0 % 07/22/2023 7:21 PM [facility] MCV 96 80 - 100 fL 07/22/2023 7:21 PM [facility] MCH 31.1 26.0 - 34.0 pg 07/22/2023 7:21 PM [facility] MCHC 32.3 32.0 - 36.0 g/dL 07/22/2023 7:21 PM [facility] RDW 13.3 11.5 - 15.5 % 07/22/2023 7:21 PM [facility] PLATELET COUNT 202 140 - 440 thou/cu mm 07/22/2023 7:21 PM [facility] MPV 9.2 6.5 - 11.0 fL 07/22/2023 7:21 PM [facility] % NEUT 56.8 % 07/22/2023 7:21 PM [facility] % LYMPH 29.6 % 07/22/2023 7:21 PM [facility] % MONO 9.9 % 07/22/2023 7:21 PM [facility] % EOS 3.3 % 07/22/2023 7:21 PM [facility] % BASO 0.4 % 07/22/2023 7:21 PM [facility] ABSOLUTE NEUTROPHILS 2.8 1.7 - 7.0 thou/cu mm 07/22/2023 7:21 PM [facility] ABSOLUTE LYMPHOCYTES 1.4 0.9 - 2.9 thou/cu mm 07/22/2023 7:21 PM [facility] ABSOLUTE MONOCYTES 0.5 <0.9 thou/cu mm 07/22/2023 7:21 PM T [facility] ABSOLUTE EOSINOPHILS 0.2 <0.5 thou/cu mm 07/22/2023 7:21 PM T [facility] ABSOLUTE BASOPHILS 0.0 <0.3 thou/cu mm 07/22/2023 7:21 PM T [facility] Blood BLOOD SPECIMEN / Unknown Venipuncture / Unknown 07/22/2023 7:12 PM CDT 07/22/2023 7:15 PM CDT Rupal Parr NP HEMATOLOGY [facility] [address] [place], [place] [id number] * (ABNORMAL) BASIC METABOLIC PANEL (07/22/2023 7:12 PM CDT) SODIUM 141 136 - 145 mmol/L 07/22/2023 7:37 PM [facility] POTASSIUM 4.3 3.5 - 5.1 mmol/L 07/22/2023 7:37 PM [facility] CHLORIDE 104 98 - 107 mmol/L 07/22/2023 7:37 PM [facility] CO2,TOTAL 30(H) 22 - 29 mmol/L 07/22/2023 7:37 PM [facility] ANION GAP 7 5 - 18 07/22/2023 7:37 PM [facility] GLUCOSE 87 70 - 99 mg/dL 07/22/2023 7:37 PM [facility] CALCIUM 9.4 8.8 - 10.2 mg/dL 07/22/2023 7:37 PM [facility] BUN 16 8 - 23 mg/dL 07/22/2023 7:37 PM [facility] CREATININE 0.97 0.70 - 1.20 mg/dL 07/22/2023 7:37 PM [facility] BUN/CREAT RATIO 16 10 - 20 7:37 PM CDT [facility] eGFR 80(L) >90 mL/min/1.7 3m2 07/22/2023 7:37 PM CDT [facility] Comment:As of 2021, eG FR is calculated by the CKD-EPI creatinine equation without race adjustment. ??eGFR can be influenced by muscle mass, exercise, and diet. ??The reported eGFR is an estimation only and is only applicable if the renal function is stable. Blood BLOOD SPECIMEN / Unknown Venipuncture / Unknown 07/22/2023 7:12 PM CDT 07/22/2023 7:15 PM CDT Rupal Parr GENETIC SUPERVISOR CHEMISTRY Performing Organization Address City/[facility]/ZIP Co de Phone Number [facility] [address] [place] [id number] * EKG 12 LEAD (06/24/2023 9:55 AM FUEL OPERATOR) Lionel Hutson GENETIC SUPERVISOR EKG ORD * BUN (06/23/2023 8:22 AM FUEL OPERATOR) BUN 16 8 - 23 mg/dL 06/23/2023 3:33 PM FUEL OPERATOR [facility] Blood BLOOD SPECIMEN / Unknown Venipuncture / Unknown 06/23/2023 8:22 AM FUEL OPERATOR 06/23/2023 8:24 AM FUEL OPERATOR Lionel Hutson NP CHEMISTRY Performing Organization Address City/[facility]/ZIP Co de Phone Number [facility] [address] [place] [address], * POTASSIUM (06/23/2023 8:22 AM FUEL OPERATOR) POTASSIUM 4.1 3.5 - 5.1 mmol/L 06/23/2023 3:33 PM FUEL OPERATOR [facility] Blood BLOOD SPECIMEN / Unknown Venipuncture / Unknown 06/23/2023 8:22 AM FUEL OPERATOR 06/23/2023 8:24 AM FUEL OPERATOR Lionel Hutson NP CHEMISTRY Performing Organization Address [facility] Co de Phone Number [facility] [address] [place] [address], [place] * (ABNORMAL) CREATININE (06/23/2023 8:22 AM FUEL OPERATOR) eGFR 83(L) >90 mL/min/1.7 3m2 06/23/2023 3:33 PM FUEL OPERATOR [facility] Comment:As of 2021, eG FR is calculated by the CKD-EPI creatinine equation without race adjustment. ??eGFR can be influenced by muscle mass, exercise, and diet. ??The reported eGFR is an estimation only and is only applicable if the renal function is stable. CREATININE 0.94 0.70 - 1.20 mg/dL 06/23/2023 3:33 PM FUEL OPERATOR [facility] Blood BLOOD SPECIMEN / Unknown Venipuncture / Unknown 06/23/2023 8:22 AM FUEL OPERATOR 06/23/2023 8:24 AM FUEL OPERATOR Lionel Hutson NP CHEMISTRY Performing Organization Address [facility] Co de Phone Number [facility] [address] [place] [address], [place] * MR HEAD BRAIN WWO (06/21/2023 12:00 AM FUEL OPERATOR) Anatomical Region Laterality Modality BRAIN, HEAD Magnetic Resonan ce Ophelia ROSAS MR * OCCULT BLOOD IFOBT STOOL [[id number]] (09/14/2017 10:02 AM CDT) STOOL BLOOD ,IFOBT Negative Negative 09/14/2017 10:10 AM CDT [facility] Stool STOOL SPECIMEN / Unknown Non-Blood / Unknown 09/14/2017 10:02 AM CDT 09/14/2017 10:02 AM CDT Kiersten Fitch MD LABORATORY Performing Organization Address City/[facility]/ZIP Co de Phone Number [facility] [address] [place] [address], [place] [phone] * ANTI HCV (08/04/2016 10:05 AM CDT) HEPATITIS C ANTIBODY Non-Reacti ve Non-Reacti ve 08/04/2016 6:03 PM CDT [facility] Blood BLOOD SPECIMEN / Unknown Venipuncture / Unknown 08/04/2016 10:05 AM CDT 08/04/2016 10:05 AM CDT Narrative [facility] - 08/04/2016 6:03 PM CDT Antibodies to HCV not detected; does not exclude the possibility of exposure to HCV. Aravind Decker MD SEND OUTS [facility] [address] [place] [address], from Last 3 Months or Most Recently Relevant to Health Maintenance Advance Directives Documents on File Type Date Recorded Patient Weave Room Supervisor Expl anation Healthcare Directive 06/30/2023 024 Healthcare Directive 08/12/2021 4:16 PM HE ALTH CARE DIRECTIVE, 08/16/21 * Full Code (Latest Code Status on File) Date Activated Date Inactivated Comments 03/14/2022 3:28 AM 03/16/2022 1:52 PM Question Answer Comments Code Status Discussion: Reviewed Preferences * Full Code Date Activated Date Inactivated Comments 03/09/2022 12:07 PM 03/10/2022 4:43 PM Question Answer Comments Code Status Discussion: Unable to Assess Preferences, Provider to review later * Full Code Date Activated Date Inactivated Comments 04/22/2021 11:40 PM 04/26/2021 6:30 PM Question Answer Comments Code Status Discussion: Reviewed Preferences * Full Code Date Activated Date Inactivated Comments 03/28/2021 7:14 AM 04/14/2021 4:51 PM Question Answer Comments Code Status Discussion: Reviewed Preferences * Full Code Date Activated Date Inactivated Comments 03/27/2021 6:14 AM 03/28/2021 7:14 AM Question Answer Comments Code Status Discussion: Unable to Assess Preferences, Provider to review later Care Teams Land Survey Technician Relationship Specialty Start Date End Date Kiersten Fitch MD [address] [place] [address] PCP - General Family Practice 02/15/[address] [address] 03/18/22
--- OUTSIDE RECORDS SUMMARY | 2023-08-10 17:27 | XMS_ITS | Encounter Summary ---
Author Name Unknown Organization [facility] Address [address] [place] [address] Care Team Providers Care Charge Attendant Name Role Phone Aravind Decker MD Primary Care Provider [phone] Encounter Details Date Type Department Care Team (Late st Contact Info) Description 01/15/2014 Consent for Procedure/Treatme nt LV Surg IP Svc [address] [place] [address] [facility], Provider [facility] INFORMED CONSENT Social History Tobacco Use Types Packs/Day Years Used Date Smoking Tobacco: Former Cigarettes Q uit: 05/02/1965 Alcohol Use Standard Drinks/Week Comments No 0 (1 standard drink = 0.6 oz pur e alcohol) QUIT 14 YEARS AGO Sex and Gender Information Value Date Recorded Sex Assigned at Not on file Gender Identity Not on file Sexual Orientation Not on file documented as of this encounter Plan of Treatment Not on file documented as of this encounter Visit Diagnoses Not on filedocumented in this encounter Care Teams Charge Attendant Relationship Specialty Start Date End Date Aravind Decker MD [address] [place] [address] PCP - General Family Practice 01/14/14 documented as of this encounter
--- OUTSIDE RECORDS SUMMARY | 2023-08-10 17:27 | XMS_ITS ---
Author Name Unknown Organization [facility] Address [address] [place] [address] Care Team Providers Care Window Covering Sales Consultant Name Role Phone Unavailable Unavailable Unavailable Surgery Details Not on file Complications Check Surgery Details section. Procedure Estimated Blood Loss Check Surgery Details section. Procedure Findings Check Surgery Details section. Procedure Specimens Taken Check Surgery Details section.
--- OUTSIDE RECORDS SUMMARY | 2023-08-10 17:27 | XMS_ITS | Clinical Summary ---
Author Name Unknown Organization [facility] Address [address] [place] [address] Care Team Providers Care Hemmer Chainstitch Name Role Phone Elsewhere, Pcp Primary Care Provider Unavailabl e Source Comments Patient records contain information from all sites at [facility]. For routine questions regarding patient records, call [phone] during business hours, M-F 8:00 AM - 5:00 PM Central Time. Record requests for emergency care only can be directed to [phone] at any time.[facility] Allergies Active Allergy Reactions Criticality Noted Date [...] quad (FLUZONE/FLUARIX) (6 months and older)(PF) 02/26/2019,01/23/2016 Family History Medical History Relation Name Comments [...] week 08/31/2021 How often do you attend [facility] or hindu services? Patient declined 08/31/2021 Do you belong to any clubs o r organizations such as jain groups, unions, fraternal or athletic groups, or [...] Answer Date Recorded PHQ-2 Score 0 08/31/2021 [facility] - Occupational Stress Questionnaire Answer Date Recorded [...] or rent on time? Patient refused 09/01/19 22 In the last 12 months, how many places have you lived? [phone] 08/31/2021 In the last 12 months, was t here a time when you did not have a steady place to sleep or slept in a penitentiary (including now)? No 08/31/2021 Nutrition Answer Date [...] Comments Blood Pressure 118/82 03/29/2023 3:59 PM LOG YARD DERRICK OPERATOR Pulse 82 03/29/2023 2:54 PM LOG YARD DERRICK OPERATOR Temperature 36.5 ??C (97.7 ??F) 03/29/2023 3:59 PM CS T Respiratory Rate 18 03/29/2023 3:59 PM LOG YARD DERRICK OPERATOR Oxygen Saturation 100% 03/29/2023 3:59 PM LOG YARD DERRICK OPERATOR Inhaled Oxygen Concentration - - Weight 73.5 kg (162 lb 0.6 oz) 08/31/2021 7:42 A M CDT Height 182.9 cm (6') 03/29/2023 4:10 PM LOG YARD DERRICK OPERATOR Body Mass Index 21.71 08/31/2021 7:42 AM CDT Plan of Treatment Health Maintenance Due Date Last Done Comments Hepatitis C Screening 1945 Zoster Vaccines (1 of 2) 01/13/1996 COVID-19 Vaccine (2 - 2022-2 4 season) 2022 06/24/2020 Influenza Vaccine (#1) 2023 , 01/24/2020, 02/26/2019, Additional history exists Depression Screening (Annual PHQ-2) 05/02/2023 Fall Risk Screen (Annual) 05/02/2023 Creatinine Level (Kidney Fun ction Test) 03/29/2024 03/29/2023, 02/02/2023, 10/28/2022, Additional history exists Potassium Level 03/29/2024 03/29/2023, 07/2022, 10/28/2022, Additional history exists Sodium Level 03/29/2024 03/29/2023, 12/2022, 03/22/2022, Additional history exists DTaP,Tdap,and Td Vaccines (2 - Td or Tdap) 06/16/2028 06/16/2018, 01/30/2005, 05/06/2004 Pneumococcal vaccine (65+ years) Completed 01/20/2015, 04/05/2013, 06/02/2012 Care Teams Hemmer Chainstitch Relationship Specialty Start Date End Date Elsewhere, Pcp PCP - General Internal Medicine 08/31/21
[2023-08-10 17:47] LABS: Basophils Absolute Auto 0.02 K/uL (0.00-0.30); Basophils Percent Auto 0.4 % (0.0-3.0); Eosinophils Absolute Auto 0.14 K/uL (0.00-0.50); Eosinophils Percent Auto 2.6 % (0.0-7.0); Hematocrit 40.1 % (37.0-53.0); Lymphocytes Absolute Auto 1.08 K/uL (0.90-2.90); Lymphocytes Percent Auto 20.4 % (20-44); Mean Corpuscular HGB Conc 32 gm/dL (32-36); Mean Corpuscular Hemoglobin 30 pg (26-34); Mean Corpuscular Volume 94 fL (80-100); Monocytes Percent Auto 7.8 % (0.0-11.0); Neutrophils Absolute Auto 3.64 K/uL (1.7-7.0); Neutrophils Percent Auto 68.8 % (42.0-72.0); Platelet Count* 191 K/uL (140-440); Red Blood Count 4.27 m/uL (4.30-5.90); White Blood Count* 5.29 K/uL (4.50-11.00)
[2023-08-10 17:51] LABS: Slide Review Reflex No
[2023-08-10 18:02] LABS: Chloride* 108 mmol/L (96-114); Potassium* 3.9 mmol/L (3.6-5.1); Sodium* 139 mmol/L (135-149)
[2023-08-10 18:03] LABS: INR 2.43 (0.91-1.10); Prothrombin Time 28.2 Seconds
[2023-08-10 18:04] LABS: Creatinine* 0.8 mg/dL (0.5-1.5); Estimated Glomerular Filt Rate 91 ml/min
[2023-08-10 18:05] LABS: Anion Gap 2 mEq/L (7-15); Blood Urea Nitrogen* 17 mg/dL (7-30); Carbon Dioxide* 29 mmol/L (20-32)
[2023-08-10 18:06] LABS: Calcium* 8.8 mg/dL (8.4-10.6); Glucose* 90 mg/dL (60-115)
[2023-08-10 18:09] LABS: C Reactive Protein* < 0.5 mg/dL (0.5-1.0)
[2023-08-10 18:15] LABS: NT Pro B Type NatriureticPept* 734 pg/mL
[2023-08-10 18:18] LABS: Troponin I* < 0.01 ng/mL (0.01-0.04)
== END 2023-08-10 19:06 | disposition home or self-care (01) ==
PROVIDERS: Emergency Provider Family Medicine; PCP Family Medicine
DX: J34.89 Other specified disorders of nose and nasal sinuses (principal); R07.89 Other chest pain
CPT/HCPCS: 36415; 71045; 80048; 83880; 84484; 85025; 85610; 86140; 94761; 99284; 99285

== ENCOUNTER 2023-08-28 22:30 | Emergency (ER) | payer MEDICARE, OTHER, SELFPAY ==
[2023-08-28 22:42] VITALS: BP 110/71; PULSE 88; RESP 20; TEMP 36.6; O2SAT 96; BMI 25.1
[2023-08-28] MEDS: KETOROLAC 15 MG/ML inj IVP (23:10)
--- NOTE | 2023-08-28 23:12 | ED.GENADULT ---
HPI - General Adult General Date Seen: 08/28/23 Chief complaint: Anxiety Stated complaint: Chest Pain Time Seen by Provider: 08/28/23 22:30 Source: patient Mode of arrival: ambulatory Limitations: no limitations History of Present Illness HPI narrative: Patient is a 78-year-old male presenting to the emergency department for chest pain. Has been having this chest pain for the past 2 days but says ago worse today. Is in the emergency department frequently for chest pain. States this pain seems different from his previous chest pains. Does state there is pain with deep breaths. No history of blood clots. Denies fevers, chills, weakness, numbness, lightheadedness, dizziness, abdominal pain. Does state he has tenderness to palpation of his chest worse in the left precordial region but he is always very tender there. States the chest pain is is all across his chest and cannot say definitively where it hurts the worst. Denies any recent injuries or trauma. Does not notice worsening pain with movement. Pain is not radiate anywhere. Describes as a sharp pain. Related Data Home Medications Medication Instructions Recorded Confirmed dofetilide 250 mcg capsule 250 mcg PO DAILY 02/20/22 08/10/23 metoprolol succinate 25 mg 25 mg PO DAILY 02/20/22 08/10/23 tablet,extended release 24 hr pregabalin 100 mg capsule 100 mg PO TID 02/20/22 08/10/23 pregabalin 25 mg capsule mg 02/20/22 sennosides 8.6 mg tablet (senna) mg 02/20/22 sumatriptan succinate 50 mg tablet mg PO 02/20/22 tramadol 50 mg tablet mg 02/20/22 warfarin 1 mg tablet mg 02/20/22 furosemide 20 mg tablet 20 mg PO QAM 08/10/23 08/10/23 pregabalin 50 mg capsule mg PO 08/10/23 Allergies Allergy/AdvReac Type Severity Reaction Status Date / Time Phenothiazines Allergy Severe Angioedema Verified 08/10/23 16:46 dronedarone [From Multaq] Allergy Verified 08/10/23 16:46 meperidine [From Demerol] Allergy Verified 08/10/23 16:46 morphine Allergy Verified 08/10/23 16:46 promethazine [From Phenergan] Allergy Verified 08/10/23 16:46 Review of Systems Status of ROS: Reports: 10 or more systems reviewed and unremarkable except as noted in History and below [facility] Medical History Hypertension ?I10 - Essential (primary) hypertension (ICD-10) Degenerative joint disease ?M19.90 - Unspecified osteoarthritis, unspecified site (ICD-10) Anemia ?D64.9 - Anemia, unspecified (ICD-10) Restless leg ?G25.81 - Restless legs syndrome (ICD-10) Anxiety ?F41.9 - Anxiety disorder, unspecified (ICD-10) Paroxysmal atrial fibrillation ?I48.0 - Paroxysmal atrial fibrillation (ICD-10) Surgical History History of arthroscopic knee surgery ?Z98.890 - Other specified postprocedural states (ICD-10) History of back surgery ?Z98.890 - Other specified postprocedural states (ICD-10) History of cardiac radiofrequency ablation ?Z98.890 - Other specified postprocedural states (ICD-10) History of appendectomy ?Z90.49 - Acquired absence of other specified parts of digestive tract (ICD-10) History of cholecystectomy ?Z90.49 - Acquired absence of other specified parts of digestive tract (ICD-10) S/P AAA repair ?Z98.890 - Other specified postprocedural states (ICD-10) ?Z86.79 - Personal history of other diseases of the circulatory system (ICD-10) Social History Smoking Status: Never smoker Do you use any of these nicotine containing products: None Second hand tobacco smoke exposure: No How often do you have a drink containing alcohol: never How often do you have six or more drinks on one occasion: Never AUDIT-C Alcohol total score: 0 Non-prescribed substance use: denies use service: No Exam Narrative: Exam Narrative: Const: Well-nourished, Well-developed, in mild distress Eyes: PERRL, no conjunctival injection, and symmetrical lids HENT: Atraumatic external nose and ears. Moist mucous membranes. Neck: Symmetric, trachea midline, No thyromegaly. CVS: RRR, No murmurs or gallops. Peripheral pulses 2+ and equal in all extremities RESP: Unlabored respiratory effort. Clear to auscultation bilaterally. GI: Nontender/Nondistended, No rebound or guarding. MSK:Extremities w/o deformity, Normal Active ROM, tenderness to palpation bilateral chest worsen in the precordial region Skin: Warm, Dry. No rashes or lesions. Neuro: Normal Muscle tone, No focal neurological deficits. Psych: Awake, Alert, & Oriented x3. Appropriate mood and affect. Const: Vital Signs, click to edit/add: Vital Signs - 24 hr 08/28/23 22:42 08/28/23 23:33 08/28/23 23:34 Temperature 97.9 F Pulse Rate 67 69 Pulse Rate [Pulse Oximeter] 88 Respiratory Rate 20 Blood Pressure 116/65 Blood Pressure [Ri ght Upper Arm] 110/71 Pulse Oximetry 96 96 97 Oxygen Delivery Me thod Room Air 08/29/23 00:00 Temperature Pulse Rate 69 Pulse Rate [Pulse Oximeter] Respiratory Rate Blood Pressure Blood Pressure [Ri ght Upper Arm] Pulse Oximetry 96 Oxygen Delivery Me thod Course Vital Signs Vital signs: Initial Vital Signs Temperature 97.9 F 08/28/23 22:42 Temperature Source Temporal Artery Scan 08/28/23 22:42 Pulse Rate 88 08/28/23 22:42 Respiratory Rate 20 08/28/23 22:42 Blood Pressure 110/71 08/28/23 22:42 Blood Pressure Mean 84 08/28/23 22:42 Blood Pressure Position Sitting 08/28/23 22:42 Pulse Oximetry 96 08/28/23 22:42 Oxygen Delivery Method Room Air 08/28/23 22:42 Vital Signs Temperature 97.9 F 08/28/23 22:42 Pulse Rate 88 08/28/23 22:42 Respiratory Rate 20 08/28/23 22:42 Blood Pressure 110/71 08/28/23 22:42 Pulse Oximetry 96 08/28/23 22:42 Oxygen Delivery Method Room Air 08/28/23 22:42 Temperature 97.9 F 08/28/23 22:42 Pulse Rate 69 08/29/23 00:00 Respiratory Rate 20 08/28/23 22:42 Blood Pressure 116/65 08/28/23 23:33 Pulse Oximetry 96 08/29/23 00:00 Oxygen Delivery Method Room Air 08/28/23 22:42 Medications Administered Medications: Discontinued Medications Generic Name Dose Route Start Last Admin Trade Name Aria PRN Reason Stop Dose Admin Ketorolac Tromethamine 15 mg 08/28/23 22:52 08/28/23 23:10 Ketorolac 15 Mg/Ml Inj IVP 08/28/23 22:53 15 mg ONCE ONE Administration Medical Decision Making MDM Narrative Medical decision making narrative: Patient is a 78-year-old male presenting for chest pain. He is here frequently for chest pain but says this time it is different. Does have pain with deep breaths so I will check a D-dimer for signs of PE. Will do a chest x-ray to look for signs pneumonia pneumothorax. EKG and troponin looking for signs of ACS. Will order BMP, CBC, COVID/flu/RSV, magnesium. Will also order INR since he is on warfarin. Toradol given for pain. Patient's CBC and BMP showed no concerning abnormalities. Magnesium within normal limits. COVID/flu/RSV shows no concerning findings EKG and troponin showed no concerning abnormalities. ACS seems unlikely at this time. He chest x-ray reviewed by myself and the radiologist showed no concerning findings. Age adjusted D-dimer within normal limits. For INR is therapeutic. This patient who is seen frequently for chest pain have the patient our evaluation and he is already sane is chest pain has improved. At this time I do believe he is safe for discharge. He is agreeable to this plan. Lab Data Labs: Lab Results 08/28/23 08/28/23 08/28/23 Range/Units 22:52 23:10 23:12 WBC 4.24 L (4.50-11.00) K/uL RBC 4.31 (4.30-5.90) m/uL Hgb 13.4 L (13.5-17.5) gm/dL Hct 40.4 (37.0-53.0) % MCV 94 (80-100) fL MCH 31 (26-34) pg MCHC 33 (32-36) gm/dL RDW Coeff of Phyllis 13.0 (11.5-15.5) % Plt Count 172 (140-440) K/uL Neut % (Auto) 54.2 (42.0-72.0) % Lymph % (Auto) 32.1 (20-44) % [place] % (Auto) 9.0 (0.0-11.0) % Eos % (Auto) 4.0 (0.0-7.0) % Baso % (Auto) 0.7 (0.0-3.0) % Neut # (Auto) 2.30 (1.7-7.0) K/uL Lymph # (Auto) 1.40 (0.90-2.90) K/uL [place] # (Auto) 0.40 (0.00-0.90) K/UL Eos # (Auto) 0.20 (0.00-0.50) K/uL Baso # (Auto) 0.00 (0.00-0.30) K/uL Abs Immat Gran (auto) 0.00 (0.00-0.30) K/uL Imm/Tot Granulo (auto) 0.0 % INR 2.16 H (0.91-1.10) D-Dimer Quant (PE/DVT) 0.61 H (0.00-0.50) ug/ml Sodium 140 (135-149) mmol/L Potassium 4.0 (3.6-5.1) mmol/L Chloride 107 (96-114) mmol/L Carbon Dioxide 29 (20-32) mmol/L Anion Gap 4 L (7-15) mEq/L BUN 22 (7-30) mg/dL Creatinine 0.8 (0.5-1.5) mg/dL Estimated Creat Clear 67.90 Estimated GFR 91 ml/min Glucose 84 (60-115) mg/dL Calcium 9.0 (8.4-10.6) mg/dL Magnesium 2.1 (1.5-2.6) mg/dL SARS-CoV-2 (PCR) Negative SARS-CoV-2 (Negative) Influenza Type A (PCR) Negative PCR FLU A (Negative) Influenza Type B (PCR) Negative PCR FLU B (Negative) RSV (PCR) Negative PCR RSV (Negative) POC Troponin I 0.01 (0.01-0.04) ng/ml Imaging Data Chest x-ray: Attestation: I have reviewed the pertinent imaging results. Radiologist's impression: 1. Mild stable cardiomegaly is noted. Dictated by Martinez Samson MD @ 08/29/2023 12:00:50 AM ECG Data Attestation: I personally reviewed and interpreted this ECG as follows: Prior ECG tracings: available for review Interpretation: Normal sinus rhythm with a rate of 78 beats per minute, normal intervals, left axis, no ST or T-wave abnormalities. Appears similar to previous EKGs on file Discharge Plan Discharge Clinical Impression: Atypical chest pain Patient Disposition: Home, Self-Care Condition: Improved Instructions: Noncardiac Chest Pain (ED) Additional Instructions: Take Tylenol and ibuprofen for pain. Return to emergency department for new or worsening symptoms. Prescriptions: No Action furosemide 20 mg tablet 20 mg PO QAM pregabalin 50 mg capsule PO sennosides [senna] 8.6 mg tablet Patient Comments: TAKE 1 TABLET BY MOUTH 2 TIMES DAILY IF NEEDED FOR CONSTIPATION. dofetilide 250 mcg capsule 250 mcg PO DAILY sumatriptan succinate 50 mg tablet PO Patient Comments: TAKE 1 TABLET (50 MG) BY MOUTH EVERY 2 HOURS IF NEEDED FOR MIGRAINE. GIVE AT MINIMUM 2HRS APART. MAX DOSE: 200MG PER 24HRS. tramadol 50 mg tablet Patient Comments: take 1 tab qhs as needed for RLS rescue therapy. Not to exceed more than 2 nights/week metoprolol succinate 25 mg tablet extended release 24 hr 25 mg PO DAILY warfarin 1 mg tablet Patient Comments: TAKE BY MOUTH 2 MG (1 MG X 2) EVERY SUN; 3 MG (1 MG X 3) ALL OTHER DAYS OR DIRECTED pregabalin 25 mg capsule Patient Comments: TAKE 1 CAP 3 TIMES PER DAILY. INCREASE TO 2 CAPS NIGHTTIME DOSING IF NEEDED AFTER 1 WEEK (TOTAL DOSING 125 MG AM AND AFTERNOON 150MG AT BEDTIME) pregabalin 100 mg capsule 100 mg PO TID Patient Comments: TAKE 1 CAPSULE BY MOUTH THREE TIMES A DAY Follow Up/Referrals: Kiersten Fitch MD [Primary Care Provider] - Stand Alone Forms: [facility] [place] Info Instructions
[2023-08-28 23:22] LABS: Basophils Percent Auto 0.7 % (0.0-3.0); Hematocrit 40.4 % (37.0-53.0); Hemoglobin* 13.4 gm/dL (13.5-17.5); Lymphocytes Percent Auto 32.1 % (20-44); Mean Corpuscular HGB Conc 33 gm/dL (32-36); Mean Corpuscular Hemoglobin 31 pg (26-34); Mean Corpuscular Volume 94 fL (80-100); Neutrophils Percent Auto 54.2 % (42.0-72.0); Platelet Count* 172 K/uL (140-440); Red Blood Count 4.31 m/uL (4.30-5.90); White Blood Count* 4.24 K/uL (4.50-11.00)
[2023-08-28 23:26] LABS: Slide Review Reflex No
--- NOTE | 2023-08-28 23:31 | XR_ITS ---
Patient: PO HARTMANN Facility:?[facility] Patient ID:?[id number] Site Patient ID:?[id number]. Site :?[id number] Study:?XRay-Chest 2 VIEW-08/28/2023 11:46:39 PM Ordering Physician:ZION Final Report: INDICATION: Chest pain TECHNIQUE: Chest radiograph 3 views COMPARISON: 08/10/2023, FINDINGS: Mediastinum: Previous median sternotomy and coronary artery bypass grafting (CABG) noted. A left atrial appendage ligation clip is noted. Mild stable cardiomegaly is noted. Lung: Pleural scarring over the apices and noted without interval change. No pneumothorax is identified. Bone and Soft tissue: Unremarkable for age. IMPRESSION: 1. Mild stable cardiomegaly is noted. Dictated by Martinez Samson MD @ 08/29/2023 12:00:50 AM Dictated by: Martinez Samson MD @ 08/29/2023 00:00:54 Signed by:?Martinez Samson MD @08/29/2023 12:00:54 AM (Electronic Signature)
[2023-08-28 23:33] VITALS: BP 116/65; PULSE 67; O2SAT 96
[2023-08-28 23:34] VITALS: PULSE 69; O2SAT 97
[2023-08-28 23:35] LABS: Chloride* 107 mmol/L (96-114); Sodium* 140 mmol/L (135-149)
[2023-08-28 23:36] LABS: Troponin, Point-of-Care* 0.01 ng/ml (0.01-0.04)
[2023-08-28 23:38] LABS: Anion Gap 4 mEq/L (7-15); Blood Urea Nitrogen* 22 mg/dL (7-30); Carbon Dioxide* 29 mmol/L (20-32); Creatinine* 0.8 mg/dL (0.5-1.5); Estimated Glomerular Filt Rate 91 ml/min; Glucose* 84 mg/dL (60-115); Magnesium* 2.1 mg/dL (1.5-2.6)
[2023-08-28 23:40] LABS: D Dimer Quantitative* 0.61 ug/ml (0.00-0.50)
[2023-08-28 23:48] LABS: INR 2.16 (0.91-1.10); Prothrombin Time 25.7 Seconds
[2023-08-29] VITALS: PULSE 69; O2SAT 96
[2023-08-29] LABS: PCR FLU A Negative PCR FLU A (Negative); PCR FLU B Negative PCR FLU B (Negative); PCR RSV Negative PCR RSV (Negative); SARS PCR* Negative SARS-CoV-2 (Negative)
[2023-08-29 00:02] VITALS: BP 120/66; PULSE 72; O2SAT 96
== END 2023-08-29 00:23 | disposition home or self-care (01) ==
PROVIDERS: Emergency Provider Student in an Organized Health Care Education/Training Program; PCP Family Medicine
DX: R07.9 Chest pain, unspecified (principal)
CPT/HCPCS: 36415; 71046; 80048; 83735; 84484; 85025; 85379; 85610; 87631; 93005; 96374; 99283; 99284; J1885

== ENCOUNTER 2024-01-16 20:26 | Emergency (ER) | payer MEDICARE, OTHER, SELFPAY ==
[2024-01-16 20:37] VITALS: BP 117/60; PULSE 108; RESP 24; TEMP 37.6; O2SAT 95; BMI 25.5
--- NOTE | 2024-01-16 21:03 | CRLHL7_ITS ---
For Patients: As a result of the Cures Act, medical imaging exams and procedure reports are released immediately into your electronic medical record. You may view this report before your referring provider. If you have questions, please contact your health care provider. INDICATION: Cough, fever TECHNIQUE: Chest radiograph 3 views COMPARISON: 08/28/2023 FINDINGS: Mediastinum: Previous median sternotomy and coronary artery bypass grafting (CABG) noted. Left atrial appendage ligation clip is noted. Lung: Patchy airspace opacities are present in the right lung base, suspicious for pneumonia or aspiration. No sign of pleural effusion seen. No pneumothorax is identified. Bone and Soft tissue: Unremarkable for age. IMPRESSION: 1. Patchy airspace opacities are present in the right lung base, suspicious for pneumonia or aspiration. Dictated by Martinez Samson MD @ 01/16/2024 9:50:09 PM Dictated by: Martinez Samson MD @ 01/16/2024 21:50:12 (Electronically Signed)
--- NOTE | 2024-01-16 21:04 | ED_ITS ---
HPI - General Adult General Chief complaint: Shortness of Breath/Dyspnea Stated complaint: Short of breath, fever Time Seen by Provider: 01/16/24 20:51 History of Present Illness HPI narrative: This 79-year-old male comes in thinking that he might have pneumonia. He states that he has had some upper respiratory symptoms for the past week or so but today felt much worse. He states that he measured a fever at home at 104?. He did take some Tylenol. He went to emergency room in [place] and states that he had an x-ray and was told that he did not have pneumonia. He went home and decided to come here because he was having chills and sweats. He does not report any shortness of breath. He does arrive with a heart rate increased at 108 beats per minute at rest. He is maintaining sufficient oximetry at 95% on room air. He is not hypotensive. Related Data Home Medications ?Medication ?Instructions ?Recorded ?Confirmed dofetilide 250 mcg capsule 250 mcg PO DAILY 02/20/22 08/10/23 metoprolol succinate 25 mg 25 mg PO DAILY 02/20/22 08/10/23 tablet,extended release 24 hr pregabalin 100 mg capsule 100 mg PO TID 02/20/22 08/10/23 pregabalin 25 mg capsule mg 02/20/22 sennosides 8.6 mg tablet (senna) mg 02/20/22 sumatriptan succinate 50 mg tablet mg PO 02/20/22 tramadol 50 mg tablet mg 02/20/22 warfarin 1 mg tablet mg 02/20/22 furosemide 20 mg tablet 20 mg PO QAM 08/10/23 08/10/23 pregabalin 50 mg capsule mg PO 08/10/23 Allergies Allergy/AdvReac Type Severity Reaction Status Date / Time Phenothiazines Allergy Severe Angioedema Verified 01/16/24 20:39 dronedarone [From Multaq] Allergy Verified 01/16/24 20:39 meperidine [From Demerol] Allergy Verified 01/16/24 20:39 morphine Allergy Verified 01/16/24 20:39 promethazine [From Phenergan] Allergy Verified 01/16/24 20:39 Review of Systems Status of ROS: Reports: 10 or more systems reviewed and unremarkable except as noted in History and below Narrative: Constitutional: No weight gain or loss. He reports fevers with chills and sweats. Eyes: No discharge. No vision changes. HENT: No congestion, no sore throat, no ear pain. Cardiovascular: No chest pain, no palpitations. Respiratory: No shortness of breath, no wheezes. He reports a cough. Gastrointestinal: No abdominal pain, no vomiting, no diarrhea. Genitourinary: No dysuria, no hematuria. Musculoskeletal: Normal range of motion. Skin: No rashes, no pruritis. Neurological: No dizziness, weakness, sensory change, speech change. Endo/Heme/Allergies: No bruising or bleeding. No polydipsia. Pysch: no suicidality, no anxiety, no insomnia. All other systems reviewed and are negative. [facility] Medical History Hypertension ?I10 - Essential (primary) hypertension (ICD-10) Degenerative joint disease ?M19.90 - Unspecified osteoarthritis, unspecified site (ICD-10) Anemia ?D64.9 - Anemia, unspecified (ICD-10) Restless leg ?G25.81 - Restless legs syndrome (ICD-10) Anxiety ?F41.9 - Anxiety disorder, unspecified (ICD-10) Paroxysmal atrial fibrillation ?I48.0 - Paroxysmal atrial fibrillation (ICD-10) Surgical History History of arthroscopic knee surgery ?Z98.890 - Other specified postprocedural states (ICD-10) History of back surgery ?Z98.890 - Other specified postprocedural states (ICD-10) History of cardiac radiofrequency ablation ?Z98.890 - Other specified postprocedural states (ICD-10) History of appendectomy ?Z90.49 - Acquired absence of other specified parts of digestive tract (ICD- 10) History of cholecystectomy ?Z90.49 - Acquired absence of other specified parts of digestive tract (ICD- 10) S/P AAA repair ?Z98.890 - Other specified postprocedural states (ICD-10) ?Z86.79 - Personal history of other diseases of the circulatory system (ICD- 10) Social History Smoking Status: Never smoker Do you use any of these nicotine containing products: None Second hand tobacco smoke exposure: No How often do you have a drink containing alcohol: never How often do you have six or more drinks on one occasion: Never AUDIT-C Alcohol total score: 0 Non-prescribed substance use: denies use service: No Exam Narrative: Exam Narrative: Constitutional: Well-developed, well-nourished, no acute distress. HEENT: Normocephalic, atraumatic. Neck: Normal range of motion. Nontender. Supple. Heart: Regular. No murmurs. Tachycardia, rate 108 per minute at rest. Intact distal pulses. Lungs: Clear to auscultation. No chest discomfort. No wheezes, rhonchi, or rales. Abdomen: Normal bowel sounds. Nontender. No rebound tenderness. Genitalia: Deferred. Back: No midline tenderness. Normal range of motion. Extremities: Normal range of motion. No injury. Skin: Intact. No rash. Warm. No erythema or pallor. Neurologic: No altered sensation. No weakness. Alert and oriented. Psychiatric: No suicidality. No anxiety or depression. No insomnia. Nursing notes and vitals signs are reviewed. Const: Vital Signs, click to edit/add: Vital Signs - 24 hr 01/16/24 20:37 Temperature 99.6 F Pulse Rate [Right Pulse Oximeter] 108 H Respiratory Rate 24 Blood Pressure [Le ft Upper Arm] 117/60 Pulse Oximetry 95 Oxygen Delivery Me thod Room Air Course Vital Signs Vital signs: Initial Vital Signs Temperature 99.6 F 01/16/24 20:37 Temperature Source Temporal Artery Scan 01/16/24 20:37 Pulse Rate 108 H 01/16/24 20:37 Respiratory Rate 24 01/16/24 20:37 Blood Pressure 117/60 01/16/24 20:37 Blood Pressure Mean 79 01/16/24 20:37 Blood Pressure Position Sitting 01/16/24 20:37 Pulse Oximetry 95 01/16/24 20:37 Oxygen Delivery Method Room Air 01/16/24 20:37 Vital Signs Temperature 99.6 F 01/16/24 20:37 Pulse Rate 108 H 01/16/24 20:37 Respiratory Rate 24 01/16/24 20:37 Blood Pressure 117/60 01/16/24 20:37 Pulse Oximetry 95 01/16/24 20:37 Oxygen Delivery Method Room Air 01/16/24 20:37 Temperature 99.6 F 01/16/24 20:37 Pulse Rate 108 H 01/16/24 20:37 Respiratory Rate 24 01/16/24 20:37 Blood Pressure 117/60 01/16/24 20:37 Pulse Oximetry 95 01/16/24 20:37 Oxygen Delivery Method Room Air 01/16/24 20:37 Medical Decision Making MDM Narrative Medical decision making narrative: This patient comes in thinking that he has pneumonia. He does report fevers today with chills and sweats. He arrives with normal vital signs but does have mild tachycardia. On repeat exam he has a heart rate now that is in the upper range of normal in the upper 90s. Chest x-ray is obtained and shows patchy airspace opacities in the right lung base that is suspicious for pneumonia. The patient is okay to return home. He did receive a dose of doxycycline and a prescription for the same. Imaging Data Chest x-ray: Radiologist's impression: Patchy airspace opacities are present in the right lung base, suspicious for pneumonia or aspiration. Discharge Plan Discharge Clinical Impression: Pneumonia Patient Disposition: Home, Self-Care Condition: Stable Additional Instructions: Take medication as prescribed. Follow up with MD return if worsening symptoms occur. Prescriptions: No Action furosemide 20 mg tablet 20 mg PO QAM pregabalin 50 mg capsule PO sennosides [senna] 8.6 mg tablet Patient Comments: TAKE 1 TABLET BY MOUTH 2 TIMES DAILY IF NEEDED FOR CONSTIPATION. dofetilide 250 mcg capsule 250 mcg PO DAILY sumatriptan succinate 50 mg tablet PO Patient Comments: TAKE 1 TABLET (50 MG) BY MOUTH EVERY 2 HOURS IF NEEDED FOR MIGRAINE. GIVE AT MINIMUM 2HRS APART. MAX DOSE: 200MG PER 24HRS. tramadol 50 mg tablet Patient Comments: take 1 tab qhs as needed for RLS rescue therapy. Not to exceed more than 2 nights/week metoprolol succinate 25 mg tablet extended release 24 hr 25 mg PO DAILY warfarin 1 mg tablet Patient Comments: TAKE BY MOUTH 2 MG (1 MG X 2) EVERY SUN; 3 MG (1 MG X 3) ALL OTHER DAYS OR DIRECTED pregabalin 25 mg capsule Patient Comments: TAKE 1 CAP 3 TIMES PER DAILY. INCREASE TO 2 CAPS NIGHTTIME DOSING IF NEEDED AFTER 1 WEEK (TOTAL DOSING 125 MG AM AND AFTERNOON 150MG AT BEDTIME) pregabalin 100 mg capsule 100 mg PO TID Patient Comments: TAKE 1 CAPSULE BY MOUTH THREE TIMES A DAY Follow Up/Referrals: Kiersten Fitch MD [Primary Care Provider] - Stand Alone Forms: [facility] ? Info Instructions
--- OUTSIDE RECORDS SUMMARY | 2024-01-16 21:31 | XMS_ITS | Encounter Summary ---
Author Organization [facility] Address [address] [place] [address] Care Team Providers Care Automatic Toe Laster Name Role Phone Aravind Decker MD Primary Care Provider [phone] Encounter Details Date Type Department Care Team (Late st Contact Info) Description 01/15/2014 Consent for Procedure/Treatme nt LV Surg IP Svc [address] [place] [address] [facility], Provider [facility] CONSENT Social History Tobacco Use Types [...] on filedocumented in this encounter Care Teams Automatic Toe Laster Relationship Specialty Start Date End Date Aravind Decker MD [address] [place] [address] PCP - General Family Practice 01/14/14 documented as of this encounter
--- OUTSIDE RECORDS SUMMARY | 2024-01-16 21:31 | XMS_ITS | Referral Summary ---
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 For routine questions regarding patient records, call [phone] during business hours, M-F 8:00 AM - 5:00 PM Central Time. Record requests for emergency care only can be directed to [phone] at any time.[facility] Allergies Active Allergy Reactions Criticality Noted [...] capsule Take 1 capsule by mouth daily. Active acetaminophen (TYLENOL) 500 mg tablet Take 500-1,000 mg by mouth. Active ascorbic acid, vitamin C, (VITAMIN C) 1,000 mg tablet Take 2 tablets by mouth 2 (two) times a day. 04/17/2020 Active aspirin 81 mg chewable tablet Chew 81 mg daily. 04/15/2021 Ac tive cholecalciferol (VITAMIN D3) 50 mcg (2,000 Unit) capsule Take 2 capsules by mouth 2 (two) times a day. 11/17/2011 Active dofetilide (TIKOSYN) 250 mcg capsule Take 250 mcg by mouth 2 (two) times a day. 08/26/2021 Active furosemide (LASIX) 40 mg tablet Take 40 mg by mouth daily. 07/13/2021 Active metoprolol succinate (TOPROL-XL) 50 mg 24 hr tablet Take 50 mg by mouth daily. 06/11/2021 Active SUMAtriptan (IMITREX) 50 mg tablet Take 100 mg by mouth at bedtime as needed. Active warfarin (COUMADIN) 1 mg tablet TAKE 2 TABLETS BY MOUTH TUESDAY, TUESDAY, TUESDAY AND 1 TABLET ALL OTHER DAYS OF THE WEEK. 08/03/2021 Active zinc gluconate 100 mg tablet Take 50 mg by mouth. 12/22/2020 Active traMADoL (ULTRAM) 50 mg tablet Take 50 mg by mouth at bedtime as needed. 01/21/2023 Active pregabalin (LYRICA) 100 mg capsule Take 100 mg by mouth 3 (three) times a day. Active pregabalin (LYRICA) 50 mg capsule Take 50 mg by mouth 3 (three) times a day. 10/07/2022 Active pregabalin (LYRICA) 25 mg capsule Take 25 mg by mouth 3 (three) times a day. 03/15/2023 Active Active Problems No known active problems Immunizations Name Administration Dates Next Due Influenza TIV (IM) 04/05/2013 Influenza, Injectable, Quadrivalent 01/16/2017 Influenza, Seasonal, Injectable 04/05/2013 Influenza, Unspecified 02/16/2018,04/05/2013 PCV13 01/20/2015 PPSV23 04/05/2013,06/02/2012 Td (Adult), adsorbed 05/06/2004 Td, (Adult) Unspecified 01/30/2005 Tdap 06/16/2018 influenza trivalent high dos e (HD)(PF) 02/16/2018,01/27/2017,01/20/2015,2013 influenza vaccine QV(FLUBLOK ) (18 years [...] How often do you attend chur or rastafari services? Patient declined 08/31/2021 Do you belong to any clubs o r organizations such as cheondoism groups, unions, fraternal [...] Answer Date Recorded PHQ-2 Score 0 08/31/2021 [facility] - Occupational Stress Questionnaire Answer Date [...] months, how many places have you lived? [id number] 08/31/2021 In the last 12 months, was t here a time when you did not have a steady place to sleep or slept in a retirement (including now)? No 08/31/2021 Nutrition Answer Date [...] Comments Blood Pressure 118/82 03/29/2023 3:59 PM STAFF EDUCATOR Pulse 82 03/29/2023 2:54 PM STAFF EDUCATOR Temperature 36.5 ??C (97.7 ??F) 03/29/2023 3:59 PM CS T Respiratory Rate 18 03/29/2023 3:59 PM STAFF EDUCATOR Oxygen Saturation 100% 03/29/2023 3:59 PM STAFF EDUCATOR Inhaled Oxygen Concentration - - Weight 73.5 kg (162 lb 0.6 oz) 08/31/2021 7:42 A M CDT Height 182.9 cm (6') 03/29/2023 4:10 PM STAFF EDUCATOR Body Mass Index 21.71 08/31/2021 7:42 AM CDT Plan of Treatment Not on file Care Teams Lumber Material Handler Relationship Specialty Start Date End Date Elsewhere, Pcp PCP - General Internal Medicine 08/31/21
--- OUTSIDE RECORDS SUMMARY | 2024-01-16 21:31 | XMS_ITS | Clinical Summary ---
Author Organization [facility] Address [place], [place] [address] Care Team Providers Care Surveillance Operator Name Role Phone [facility] Care, Kvng Unavailable [phone] Megan Erickson DO Primary Care Provide r Allergies Active Allergy Reactions Criticality Noted Date Comments Meperidine Dyspnea,Edema,Tachyc ardi a 07/08/2006 Facial swelling, after hypo with Phenergan Morphine Nausea And Vomiting 06/20/2007 Dronedarone Shortness Of Breath 04/29/2009 Promethazine Dyspnea,Edema,Tachyc ardi a 07/08/2006 Facial swelling, after hypo with Demerol Phenothiazines Angioedema High 08/10/2023 Pollen Extracts Other - Describe In Comment Field 04/01/2016 Sertraline Nausea Only 03/07/2017 Medications Medication Sig Dispensed Refills Start Date End Date Status cholecalciferol (VITAMIN D3) 2,000 unit capsule Take 2 capsules by mouth once daily. 0 11/17/19 12 Active Zinc Gluconate 100 mg tab Take 50 mg by mouth once daily. 0 12/23/19 21 Active acetaminophen (TYLENOL EXTRA STRGTH) 500 mg tablet Take 500-1,000 mg by mouth every 6 hours if needed for Headache or Pain. Max acetaminophen dose: 4000mg in 24 hrs. Active aspirin chewable 81 mg chewable tabletIndications: S/P ascending aortic aneurysm repair Chew 1 Tablet (81 mg) by mouth once daily with a meal. 0 04/15/20 21 Active pregabalin (LYRICA) 50 mg capsule Take 1 Capsule (50 mg) by mouth three times daily. Take along with 100 mg capsules for a total daily dose of 150 mg three times daily 01/26/20 24 Active pregabalin (LYRICA) 100 mg capsule Take 1 Capsule (100 mg) by mouth three times daily. Take along with 50 mg capsule for total dose 150 mg three times daily 05/27/19 Active ascorbic acid, vitamin C, (Vitamin C) 1,000 mg tabletIndications: Preventative health care Take 2 Tablets (2,000 mg) by mouth once daily. 05/27/19 Active Graduated Compression StockingsIndicatio ns:Edema of both legs FOR PERSONAL USE. ANKLE 26CM, CALF 38CM, ANKLE TO CALF LENGTH 10CM= BLACK - ESSENTIALS- 20/30MMHG- XL- KNEE LENGTH- CLOSED TOE 2 Each 2 09/14/19 24 Active furosemide (LASIX) 20 mg tabletIndications: Acute diastolic CHF (congestive heart failure) (HC) Take 1 Tablet (20 mg) by mouth once daily in the morning. Pt is due to return to clinic Fall 2023 90 Tablet 1 10/13/19 24 Active sennosides (SENNA) 8.6 mg tablet Take 8.6 mg by mouth once daily if needed. 02/21/20 Active Magnesium Glycinate (Mag Glycinate) 100 mg tabIndications:RLS (restless legs syndrome) Take 200 mg by mouth once daily. 180 Tablet 11 11/18/19 24 Active SUMAtriptan (IMITREX) 50 mg tabletIndications: Migraine with aura, not intractable, without status migrainosus Take 1 Tablet (50 mg) by mouth every 2 hours if needed for Migraine. Give at minimum 2hrs apart. Max Dose: 200mg per 24hrs. 10 Tablet 11/18/19 24 Active cyanocobalamin (Vitamin B-12) 1,000 mcg tablet Take 1 Tablet (1,000 mcg) by mouth once daily. 11/18/19 24 Active traMADoL (ULTRAM) 50 mg tabletIndications: Sciatica of right side Take 1 Tablet (50 mg) by mouth once daily if needed for Pain (Restless leg syndrome). Use max 2 nights per weeks. 15 Tablet 11/18/19 24 Active ondansetron (ZOFRAN ODT) 4 mg disintegrating tabletIndications: Benign paroxysmal positional vertigo, unspecified laterality,Nausea Place 1 Tablet (4 mg) on the tongue every 8 hours if needed for Nausea/Vomiting. 20 Tablet 11/21/19 24 Active metoprolol succinate (Toprol XL) 25 mg Sustained-Release tabletIndications: Migraine with aura, not intractable, without status migrainosus,Atypic al atrial flutter (HC) Take 1 Tablet (25 mg) by mouth once daily. 180 Tablet 3 12/23/19 24 Active warfarin (COUMADIN) 1 mg tabletIndications: Persistent atrial fibrillation (HC),Anticoagulati on monitoring, INR range 2-3,Atypical atrial flutter (HC) Take by mouth 01/06: 2 mg; 01/07: 2 mg; Otherwise 2 mg every Tue; 3 mg all other days in the evening OR as directed 260 Tablet 01/07/20 24 Active traMADoL (ULTRAM) 50 mg tabletIndications: Acute pain of left knee,Osteoarthrosi s, localized, primary, knee, left Take 1 Tablet (50 mg) by mouth four times daily. 28 Tablet 01/12/20 24 024 Active dofetilide (TIKOSYN) 250 mcg capsuleIndications :Persistent atrial fibrillation (HC) Take 1 Capsule (250 mcg) by mouth every 12 hours. Pt is due for labs/EKG January 2024 180 Capsule 01/16/20 24 Active magnesium glycinate 100 mg magnesium cap TAKE 200 MG BY MOUTH ONCE DAILY. 11/18/19 24 Active pregabalin (LYRICA) 25 mg capsule TAKE 1 CAPSULE BY MOUTH THREE TIMES A DAY NEEDED FOR RESTLESS LEGS 12/28/19 24 Active albuterol HFA (PRO-AIR; VENTOLIN; PROVENTIL) 90 mcg/actuation inhalerIndications :Cough, unspecified type Inhale 1-2 Puffs by mouth every 4 hours if needed for Shortness Of Breath or Wheezing (cough). 1 Each 01/16/20 24 Active benzonatate (TESSALON) 100 mg capsuleIndications :Cough, unspecified type Take 1 Capsule (100 mg) by mouth 3 times daily if needed for Cough. 21 Capsule 01/16/20 24 Active metoprolol succinate (Toprol XL) 25 mg Sustained-Release tabletIndications: Migraine with aura, not intractable, without status migrainosus,Atypic al atrial flutter (HC) Take 2 Tablets (50 mg) by mouth once daily. 180 Tablet 3 08/03/19 24 024 Discontinued(*M edication adjustment) dofetilide (TIKOSYN) 250 mcg capsuleIndications :Persistent atrial fibrillation (HC) Take 1 Capsule (250 mcg) by mouth every 12 hours. Pt is due for labs/EKG October 2023 180 Capsule 10/13/19 24 024 Discontinued warfarin (COUMADIN) 1 mg tabletIndications: Persistent atrial fibrillation (HC),Anticoagulati on monitoring, INR range 2-3,Atypical atrial flutter (HC) Take by mouth 2 mg (1 mg x 2) every Tue; 3 mg (1 mg x 3) all other days in the evening OR as directed 260 Tablet 10/24/19 24 024 Discontinued(Ot her - add note to specify (E-cancel not sent)) Active Problems Problem Noted Date Diagnosed Date Sciatica of right side 11/18/2023 Hypertensive heart disease with heart failure Acute diastolic CHF (congestive heart failure) 0 05/14/2022 Aortic ectasia, unspecified site 05/14/2022 Atrial tachycardia 03/16/2022 Primary hypertension 03/14/2022 Thoracic aortic aneurysm, without rupture 2021 Adjustment disorder with anxious mood 04/16/2021 Benign paroxysmal positional vertigo 04/16/2021 History of COVID-19 (01/2020) 03/30/2021 S/P ascending aortic aneurysm repair 03/27/2021 Overview (03/27/2021): Ascending aorta. Vascutek Terumo. Gelweave Gelatin Impregnatned Woven Vascular Prosthesis. Size: 34 mm straight. REF: [id number]. LOT: [id number]. SN: [id number]. EXP: 08/30/2023. Implanted by Dr. Saud Carter on 03/27/2021. Status post ligation of left atrial appendage Kidney stone on right side 04/05/2016 Erectile dysfunction 04/09/2015 Epididymal cyst 04/09/2015 RLS (restless legs syndrome) 12/26/2014 Total knee replacement status 01/18/2014 Anticoagulation monitoring, INR range 2-3 2013 ACP (advance care planning) 10/20/2011 Overview (10/20/2011): Patient has identified Health Care Agent(s): No Add Health Care Agents: No Patient has Advance Care Plan Documents (Health Care Directive, POLST): No, referral made to Social Work Services. Patient has identified Specific Treatment Preferences: Yes Specific Treatment Preferences: a.) Code Status: CPR/Attempt Resuscitation Atypical atrial flutter 10/19/2011 Pain medication agreement 10/12/2011 Overview (02/15/2014): Controlled substance contract signed and scanned 06/08/11.Nallely Regalado Refill Renewal RN 02/15/2014 4:15 PM Encounter for long-term (current) use of other m edications 10/12/2011 Spinal stenosis, lumbar maria esther on, without neurogenic claudication 07/03/2008 Persistent atrial fibrillation Overview (07/02/2022): -s/p EPS and complex afib ablation 11/29/2008 w/ Dr. Good -s/p Repeat ablation 04/18/2010 See 06-28-2022 if needing to restart Dofetilide-- Displacement of lumbar inter vertebral disc without myelopathy Overview (10/20/2006): W/C DOI 05-23-06 Chest wall pain following surgery Anxiety and depression History of migraine Resolved Problems Problem Noted Date Diagnosed Date Resolved Date Atrial flutter 03/15/2022 11/18/2023 Mobitz type 2 second degree atrioventricular block 03/14/2022 03/16/2022 Thrombocytopenia, unspecified 06/04/2021 05/10/2023 RLL pneumonia 05/19/2021 06/30/2022 Acute respiratory failure with hypoxia 04/22/2021 07/20/2021 Pneumonia 04/22/2021 06/30/2022 Generalized anxiety disorder 08/05/2020 11/18/2023 Adjustment disorder with mix ed anxiety and depressed mood 11/18/2017 11/18/2023 Atrial flutter 07/31/2014 11/14/2014 Hx. of Persistent Atrial Fibrillation 10/05/2013 01/09/2014 Atrial fibrillation 08/01/2012 01/10/20 14 Encounter for long-term (cur rent) use of other medications 11/08/2011 01/09/2014 Dizziness 10/19/2011 11/18/2023 Other malaise and fatigue 10/19/2011 Anemia, unspecified 10/19/2011 07/01/19 23 Infected sebaceous cyst 11/08/200910/30 LONG-TERM USE ANTICOAGULANTS 12/10/2008 09/24/2009 Overview (12/10/2008): INR Goal Range: 2.0 - 3.0 Chest pain, unspecified 07/09/2008 03/0 11/2021 Hypertension, 11/18/2023 Acute postoperative pain Acute encephalopathy 021 Nausea 11/18/2023 Encounters Date Type Department Care Team Description 01/16/2024 12:55 PM CDT Ancillary Procedure [address] [phone] Arrived 01/16/2024 12:15 PM CDT Office Visit [facility] [address] [place] [phone] Steffi Correa NP Cough (pneumonia concerns) 01/16/2024 Telephone [facility] [address] [phone] mAy Hickman RN Medication Management (Tikosyn) 01/16/2024 Travel 2024 11:00 AM CDT Ancillary Procedure [facility] [address] [place] [address] Arrived 2024 10:15 AM CDT Office Visit [facility] [address] [place] [address] Ophelia Urias PA Knee Pain/problem 2024 Refill [facility] [address] [place] [address] [place] [phone] Renzo Good MD Refill Request (Dofetilide) 2024 Travel [address] [facility] [address] [facility] [place] [address] Blu Lei MD Knee Pain/problem 01/07/2024 11:50 AM CDT Office Visit [facility] [address] [place], [place] [address]ef[address] [facility] [place] [address] Dutch Lindquist PA Mouth/Lip Problem (Bit tongue last evening and cannot stop bleeding. ) 01/07/2024 Anticoagulation (warfarin) [address] [address] , [facility] Anticoagulation 01/07/2024 Travel 01/03/2024 10:51 AM CDT - 01/03/2024 11:59 PM CDT Hospital Encounter [facility] [address] [place] [address] Angelique Brandt NP 12/28/2023 8:30 AM CDT Nurse/Clinic Staff Only [address] [phone] Device Check (holter monitor dropped off ) 12/28/[address] [phone] Megan Erickson, Appointment 12/27/2023 10:30 AM CDT Nurse/Clinic Staff Only [address] [phone] Testing (24hr epatch placement) 12/27/2023 Travel 12/20/2023 2:49 PM CDT - 12/20/2023 11:59 PM CDT Hospital Encounter [facility] [address] [place] [address] Angelique Brandt NP 12/19/2023 1:15 PM CDT Nurse/Clinic Staff Only [facility] [address] [place] [address] Device Check (48 HOUR EPATCH DOWNLOAD ) 12/19/2023 Telephone [facility] [address] [address] Renzo Good MD heart beat 12/19/2023 Travel 12/08/2023 1:15 PM CDT Nurse/Clinic Staff Only [facility] [address] [facility] [address] Immunization/Injecti on (48 HOUR EPATCH PLACEMENT ) 12/08/2023 Travel 12/01/2023 9:15 AM CDT Office Visit [facility] [address] [facility] [address] Kiersten Fitch MD Fatigue (3 month follow up, more body aches then anything); Medication Management (stopping lasiks) 12/01/2023 Travel 11/23/2023 10:50 AM CDT - 11/23/2023 11:59 PM CDT Hospital Encounter [address] [address] Payal Montoya DO Iverson, Ryan, CHASE Benign paroxysmal positional vertigo, unspecified laterality 11/23/2023 Travel 11/22/[address] [phone] Megan Erickson DO 11/21/2023 8:50 AM CDT Office Visit [address] [address] Payal Montoya DO Dizziness (Hot and clammy); Nausea 11/21/2023 Orders Only [facility] [address] [facility] [address] [place] [address] Angelique Brandt NP <No scans attached> 11/21/2023 Travel 11/18/2023 9:10 AM CDT Office Visit [address] [address] Megan Erickson DO Fatigue (Abnormal electrolytes , low iron and protein ) 11/18/2023 Telephone [facility] [address] [place] [address] [place] [phone] Renzo Good MD Medication Management (fursemide) 11/17/2023 1:00 PM CDT Procedure Only [facility] [address] [place] [address] Error-please disregard 11/17/2023 11:45 AM CDT Nurse/Clinic Staff Only [address] [address] Cardiovascular Diagnostic Testing (ECG PER LIONEL HUTSON NP ) 11/17/2023 11:30 AM CDT Orders Only [address] [address] Lab, [facility] 11/17/2023 Anticoagulation (warfarin) [address] [address] 1, [facility] Anticoagulation 11/17/2023 Telephone [facility] [address] [place] [address] Megan Erickson, DO Fatigue (Shortness of breath with short distances, unable to do the stress test today. Needs a different cardiac test. ) 11/17/[address] [address] Kiersten Fitch MD Error-please disregard 11/17/2023 Travel 10/31/2023 Telephone [facility] [address] [facility] [address] [place] [address] Amy Hickman RN Medication Management (Tikosyn/) 10/24/[address] [facility] [address] [place] [address] Kiersten Fitch MD Refill Request (Warfarin) from Last 3 Months Immunizations Name Administration Dates Next Due COVID-19 vaccine (Floor64Bio NTech 30mcg/0.3mL) DEANN BARR 06/24/2020 Influenza RIV4 (Age 18+ Year s) [...] PHQ-2 Answer Date Recorded PHQ-2 TOTAL SCORE 1 11/18/2023 Social Connections Answer Date Recorded Frequency of [...] Sign Reading Time Taken Comments Blood Pressure 140/64 01/16/2024 12:12 PM CDT Pulse 91 01/16/2024 12:12 PM CDT Temperature 36.6 ??C (97.9 ??F) 01/16/2024 12:12 PM C DT Respiratory Rate 18 01/16/2024 12:12 PM CDT Oxygen Saturation 96% 01/16/2024 12:12 PM CDT Inhaled Oxygen Concentration - - Weight 84 kg (185 lb 1.6 oz) 01/16/2024 12:12 PM CDT Height 182 cm (5' 11.65) 11/18/2023 9:16 AM CDT Body Mass Index 25.35 11/18/2023 9:16 AM CDT Plan of Treatment Upcoming Encounters Date Type Department Care Team (Late st Contact Info) Description 01/19/2024 9:00 AM CDT Orders Only [facility] [address] [place] [address] 01/23/2024 8:20 AM CDT Office Visit [facility] [address] [place] [address] Blu Lei MD [address] [place] [address] Health Maintenance Due Date Last Done Comments Zoster (shingles) series for age 50+ (1 of 2) 01/13/1996 RSV vaccine for adults or (1 - 1-dose 60+ series) 2006 COVID-19 vaccine series ( season) 2024 06/24/2020 Influenza for age 65+ 01/01/2024 03/29/2022 , 01/24/2020, 02/26/2019, Additional history exists Medicare Wellness for age 65+ 07/04/2024, 06/30/2022, 06/26/2021, Additional history exists BMI (ht and wt on same day) for age 18+ 11/17/2024 11/18/2023, 08/15/2023, 02/14/2023, Additional history exists Depression screening for age 12+ 11/20/2024 11/21/2023, 11/21/2023, 11/18/2023, Additional history exists Tetanus booster 06/16/2028 06/16/2018, 10/05/2004, 05/06/2004 Pneumococcal series for age 65+ Completed 01/20/2015, 04/05/2013, 06/02/2012 Hepatitis C screening for ag e 18-79 Completed 08/04/2016 Fecal testing non-DNA (FIT,FOBT,iFOBT) for age 45-75 Discontinued 09/14/2017, 12/11/2014 Tdap Completed 06/16/2018 Medical Devices Implanted Type Area Roller Operator Device Identifier Shelf Expiration Date Model / Serial / Lot Occluder Erma 50mm Atriclip Flex V Exclusion Sys - [id number] Implanted:Qty: 1 on 03/27/2021 by Saud Carter MBBS at [facility] Left: [employer] 10/31/2023 [id number] / / [id number] Description:Implant location : Left atrial appendage Left atrial appendage. AtriCure AtriClip FLEX-V. ERMA Exclusion System. Size: 50. REF: [id number]. LOT: [id number]. EXP: 10/31/2023. Implanted by Dr. Saud Carter on 03/27/2021. Graft Vascular Gelweave 34mm X 30cm Implanted:Qty: 1 on 03/27/2021 by Saud Carter MBBS at [facility] N/A: Aorta [employer] Connect 08/30/2023 [id number] / [id number] / [id number] Procedures Procedure Name Priority Date/Time Associated Diagnosis Comments CBC WITH AUTO DIFFERENTIAL STAT 01/16/2024 1:48 PM CDT Cough, unspecified type BASIC METABOLIC PANEL STAT 01/16/2024 1:48 PM CDT Cough, unspecified type CBC WITH AUTO DIFFERENTIAL STAT 01/16/2024 1:48 PM CDT Cough, unspecified type XR CHEST 2 VIEWS PA AND LATERAL STAT 01/16/2024 12:59 PM CDT Cough, unspecified type XR KNEE WB 2 VIEWS BILATERAL AND 1 VIEW LEFT Routine 2024 11:17 AM CDT Acute pain of left knee Osteoarthrosis, localized, primary, knee, left CBC W PLT NO DIFF STAT 01/07/2024 12: 26 PM CDT Bleeding PROTIME-INR STAT 01/07/2024 12:26 PM CDT Bleeding HOLTER MONITOR Routine 01/03/2024 12:00 AM CDT Palpitations HOLTER MONITOR 48 HOURS Routine 12/20/2023 12:00 AM CDT Persistent atrial fibrillation (HC) Atypical atrial flutter (HC) Shortness of breath EKG 12 LEAD Routine 11/21/2023 12:31 PM CDT Persistent atrial fibrillation (HC) Atypical atrial flutter (HC) COMP METABOLIC PANEL Add On 11/18/2023 10:17 AM CDT Fatigue, unspecified type Hypertensive heart disease with heart failure (HC) PRO-BNP Routine 11/18/2023 10:17 AM CDT Fatigue, unspecified type Hypertensive heart disease with heart failure (HC) VITAMIN B12 Routine 11/18/2023 10:17 AM CDT Fatigue, unspecified type TSH WITH REFLEX Routine 11/18/2023 10:17 AM CDT Fatigue, unspecified type CBC W PLT NO DIFF Routine 11/18/2023 10: 17 AM CDT Fatigue, unspecified type SCAN-ELECTROCARDIOGRA M EKG 11/18/2023 12:00 AM CDT POTASSIUM Routine 11/17/2023 11:48 AM CDT Persistent atrial fibrillation (HC) Atypical atrial flutter (HC) CREATININE Routine 11/17/2023 11:48 AM CDT Persistent atrial fibrillation (HC) Atypical atrial flutter (HC) BUN Routine 11/17/2023 11:48 AM CDT Persistent atrial fibrillation (HC) Atypical atrial flutter (HC) PROTIME-INR STAT 11/17/2023 11:48 AM CDT Persistent atrial fibrillation (HC) Anticoagulation monitoring, INR range 2-3 Atypical atrial flutter (HC) OCCULT BLOOD IFOBT STOOL Routine 09/14/2017 10:02 AM CDT Screening for colon cancer ANTI HCV Routine 08/04/2016 10:05 AM CDT Need for hepatitis C screening test from Last 3 Months or Most Recently Relevant to Health Maintenance Results * CBC WITH AUTO DIFFERENTIAL (01/16/2024 1:48 PM CDT) Pathologist [facility] WHITE BLOOD COUNT 6.1 4.5 - 11.0 thou/cu mm 01/16/2024 2:17 PM [facility] RED BLOOD COUNT 4.45 4.30 - 5.90 mil/cu mm 01/16/2024 2:17 PM [facility] HEMOGLOBIN 14.1 13.5 - 17.5 g/dL 01/16/2024 2:17 PM [facility] HEMATOCRIT 43.4 37.0 - 53.0 % 01/16/2024 2:17 PM [facility] MCV 98 80 - 100 fL 01/16/2024 2:17 PM [facility] MCH 31.7 26.0 - 34.0 pg 01/16/2024 2:17 PM [facility] MCHC 32.5 32.0 - 36.0 g/dL 01/16/2024 2:17 PM [facility] RDW 13.6 11.5 - 15.5 % 01/16/2024 2:17 PM [facility] PLATELET COUNT 213 140 - 440 thou/cu mm 01/16/2024 2:17 PM CDT [facility] MPV 9.4 6.5 - 11.0 fL 01/16/2024 2:17 PM T [facility] % NEUT 71.6 % 01/16/2024 2:17 PM CDT [facility] % LYMPH 17.0 % 01/16/2024 2:17 PM T [facility] % MONO 8.1 % 01/16/2024 2:17 PM CDT [facility] % EOS 3.1 % 01/16/2024 2:17 PM T [facility] % BASO 0.2 % 01/16/2024 2:17 PM T [facility] ABSOLUTE NEUTROPHILS 4.4 1.7 - 7.0 thou/cu mm 01/16/2024 2:17 PM CDT [facility] ABSOLUTE LYMPHOCYTES 1.0 0.9 - 2.9 thou/cu mm 01/16/2024 2:17 PM T [facility] ABSOLUTE MONOCYTES 0.5 <0.9 thou/cu mm 01/16/2024 2:17 PM T [facility] ABSOLUTE EOSINOPHILS 0.2 <0.5 thou/cu mm 01/16/2024 2:17 PM CDT [facility] ABSOLUTE BASOPHILS 0.0 <0.3 thou/cu mm 01/16/2024 2:17 PM T [facility] Blood BLOOD SPECIMEN / Unknown Non-Lab Venipuncture / Unknown 01/16/2024 1:48 PM CDT 01/16/2024 1:48 PM CDT Steffi Correa NP HEMATOLOGY [facility] [address] [place] [address] * (ABNORMAL) BASIC METABOLIC PANEL (01/16/2024 1:48 PM CDT) SODIUM 143 136 - 145 mmol/L 01/16/2024 2:27 PM [facility] POTASSIUM 4.9 3.5 - 5.1 mmol/L 01/16/2024 2:27 PM [facility] CHLORIDE 103 98 - 107 mmol/L 01/16/2024 2:27 PM [facility] CO2,TOTAL 31(H) 22 - 29 mmol/L 01/16/2024 2:27 PM [facility] ANION GAP 9 5 - 18 01/16/2024 2:27 PM [facility] GLUCOSE 93 70 - 99 mg/dL 01/16/2024 2:27 PM [facility] CALCIUM 9.7 8.8 - 10.2 mg/dL 01/16/2024 2:27 PM [facility] BUN 16 8 - 23 mg/dL 01/16/2024 2:27 PM [facility] CREATININE 0.96 0.70 - 1.20 mg/dL 01/16/2024 2:27 PM [facility] BUN/CREAT RATIO 17 10 - 20 2:27 PM [facility] eGFR 81(L) >90 mL/min/1.7 3m2 01/16/2024 2:27 PM [facility] Comment:As of 2021, eG FR is calculated by the CKD-EPI creatinine equation without race adjustment. ??eGFR can be influenced by muscle mass, exercise, and diet. ??The reported eGFR is an estimation only and is only applicable if the renal function is stable. Blood BLOOD SPECIMEN / Unknown Non-Lab Venipuncture / Unknown 01/16/2024 1:48 PM CDT 01/16/2024 1:48 PM CDT Steffi Correa NP CHEMISTRY [facility] [address] [place] [address] * XR CHEST 2 VIEWS PA AND LATERAL (01/16/2024 12:59 PM CDT) Anatomical Region Laterality Modality CHEST, THORAX, Lung, HEART Compu amarilys Radiography 01/16/2024 1:15 PM CDT Impressions 01/16/2024 1:15 PM CDT Hyperinflated lung newman. No other acute pulmonary process or significant change from the prior study. Dictated by Willy Ravi MD @ 01/16/2024 1:15:31 PM (Electronically Signed) Narrative 01/16/2024 1:15 PM CDT For Patients: ??As a result of the Cures Act, medical imaging exams and procedure reports are released immediately into your electronic medical record. ??You may view this report before your referring provider. ??If you have questions, please contact your health care provider. INDICATION: Cough TECHNIQUE: Chest 2 views. COMPARISON: 06/04/2022 FINDINGS: Cardiovascular and mediastinum: Prior sternotomy and left atrial appendage clip. Heart size and vasculature are normal in caliber and appearance. Mediastinum is within normal limits. Lungs and pleural spaces: Hyperinflation. Mild chronic pleural thickening and calcification at the lung apices. Lungs are clear. No sign of infiltrate or mass. No sign of pleural effusion. No pneumothorax. Bones and soft tissues: No significant findings. Procedure Note Dinh Ravi MD - 01/16/2024 For Patients: As a result of the Cures Act, medical imagingexams and procedure reports are released immediately into your electronicmedical record. You may view this report before your referring provider.If you have questions, please contact your health care provider. INDICATION: Cough TECHNIQUE: Chest 2 views. COMPARISON: 06/04/2022 FINDINGS: Cardiovascular and mediastinum: Prior sternotomy and left atrial appendageclip. Heart size and vasculature are normal in caliber and appearance.Mediastinum is within normal limits. Lungs and pleural spaces: Hyperinflation. Mild chronic pleural thickeningand calcification at the lung apices. Lungs are clear. No sign ofinfiltrate or mass. No sign of pleural effusion. No pneumothorax. Bones and soft tissues: No significant findings. IMPRESSION: Hyperinflated lung newman. No other acute pulmonary process or significantchange from the prior study. Dictated by Willy Ravi MD @ 01/16/2024 1:15:31 PM (Electronically Signed) Steffi Correa NP GENERAL IMAGING * XR KNEE WB 2 VIEWS BILATERAL AND 1 VIEW LEFT (2024 11:17 AM CDT) Anatomical Region Laterality Modality KNEES, KNEE L Computed Radiogr aphy 2024 3:43 PM CDT Narrative 2024 3:43 PM CDT For Patients: ??As a result of the Cures Act, medical imaging exams and procedure reports are released immediately into your electronic medical record. ??You may view this report before your referring provider. ??If you have questions, please contact your health care provider. Indication: Osteoarthrosis Technique: PA standing view both knees, standing lateral view left knee and patellofemoral view both knees Comparison: 10/11/2018 Findings: Visualized right knee prosthetic hardware intact. Medial compartment narrowing left knee. Chondrocalcinosis on the left. Patellofemoral spurring. Joint effusion. Vascular calcifications. 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 Dictated by Rashard Reid MD @ 2024 3:43:50 PM (Electronically Signed) Procedure Note Rashard Reid MD - 2024 For Patients: As a result of the Cures Act, medical imagingexams and procedure reports are released immediately into your electronicmedical record. You may view this report before your referring provider.If you have questions, please contact your health care provider. Indication: Osteoarthrosis Technique: PA standing view both knees, standing lateral view left knee andpatellofemoral view both knees Comparison: 10/11/2018 Findings: Visualized right knee prosthetic hardware intact. Medial compartmentnarrowing left knee. Chondrocalcinosis on the left. Patellofemoralspurring. Joint effusion. Vascular calcifications. 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 Dictated by Rashard Reid MD @ 2024 3:43:50 PM (Electronically Signed) Ophelia Urias PA GENERAL IMAGIN G * CBC W PLT NO DIFF (01/07/2024 12:26 PM CDT) Only the most recent of2 resultswithin the time period is included. WHITE BLOOD COUNT 4.9 4.5 - 11.0 thou/cu mm 01/07/2024 12:32 PM T [facility] RED BLOOD COUNT 4.46 4.30 - 5.90 mil/cu mm 01/07/2024 12:32 PM [facility] HEMOGLOBIN 14.2 13.5 - 17.5 g/dL 01/07/2024 12:32 PM [facility] HEMATOCRIT 42.7 37.0 - 53.0 % 01/07/2024 12:32 PM [facility] MCV 96 80 - 100 fL 01/07/2024 12:32 PM [facility] MCH 31.8 26.0 - 34.0 pg 01/07/2024 12:32 PM [facility] MCHC 33.3 32.0 - 36.0 g/dL 01/07/2024 12:32 PM [facility] RDW 13.7 11.5 - 15.5 % 01/07/2024 12:32 PM [facility] PLATELET COUNT 196 140 - 440 thou/cu mm 01/07/2024 12:32 PM [facility] MPV 9.6 6.5 - 11.0 fL 01/07/2024 12:32 PM [facility] Blood BLOOD SPECIMEN / Unknown Venipuncture / Unknown 01/07/2024 12:26 PM CDT 01/07/2024 12:26 PM CDT Dutch ROSAS HEMATOLOGY [facility] [address] [place], [place] [id number] * (ABNORMAL) PROTIME-INR (01/07/2024 12:26 PM CDT) Only the most recent of2 resultswithin the time period is included. INR 3.3(H) <1.3 01/07/2024 12:36 PM CDT [facility] PROTIME 35.5(H) 10.3 - 12.3 sec 01/07/2024 12:36 PM CDT [facility] Blood BLOOD SPECIMEN / Unknown Venipuncture / Unknown 01/07/2024 12:26 PM CDT 01/07/2024 12:26 PM CDT Narrative [facility] - 01/07/2024 12:36 PM CDT ?Therapeutic Range 2.0-3.0 for most [...] seconds if the patient is on UFH. Dutch ROSAS HEMATOLOGY [facility] [address] [place] [address] * HOLTER MONITOR - frequent daily symptoms. Specify duration 24 or 48 hours. (01/03/2024 12:00 AM CDT) Angelique Brandt NP CARDIAC SERVICES ORD * HOLTER MONITOR 48 HOURS (12/20/2023 12:00 AM CDT) Angelique Brandt NP CARDIAC SERVICES ORD * EKG 12 LEAD (11/21/2023 12:31 PM CDT) Lionel Hutson [employer] YE[employer] EKG ORD * TSH WITH REFLEX (11/18/2023 10:17 AM CDT) TSH 0.94 0.27 - 4.20 uIU/mL 11/18/2023 10:58 AM CDT [facility] Blood BLOOD SPECIMEN / Unknown Venipuncture / Unknown 11/18/2023 10:17 AM CDT 11/18/2023 10:18 AM CDT Narrative [facility] - 11/18/2023 10:58 AM CDT In Adults, TSH values between 5.00 and 10.00 uIU/ml do not necessarily indicate the presence of Hypothyroidism. Correlation with clinical findings such as presence of goiter and/or Thyroperoxidase (TPO) Antibody may be helpful. For more information please refer to ANTIONE 2004; 291: 228-238. Megan Erickson DO CHEMISTRY [facility] [address] [place] [address] * (ABNORMAL) PRO-BNP (11/18/2023 10:17 AM CDT) PRO-BNP 678(H) <450 pg/mL 11/18/2023 11:00 AM CDT [facility] Blood BLOOD SPECIMEN / Unknown Venipuncture / Unknown 11/18/2023 10:17 AM CDT 11/18/2023 10:18 AM CDT [facility] - 11/18/2023 11:00 AM CDT The following cut-points have been suggested for the use of proBNP for the diagnostic evaluation of heart failure (HF) in patient with acute dyspnea. Patients with eGFR >= 60 Diagnosis (rule in CHF) ? <50 Years Old ?450 pg/mL 50 - 75 Years Old ?900 pg/mL >75 Years Old ? 1800 pg/mL Exclusion (rule out CHF) Age Independent ?300 pg/mL A cutoff of 1200 pg/mL for patients with an eGFR <60 yields a diagnostic sensitivity of 89% and specificity of 72% for acute congestive heart failure. ? Megan Erickson DO SEND OUTS Performing Organization Address [facility]/ZIP Co de Phone Number [facility] [address] [place] [address] * VITAMIN B12 (11/18/2023 10:17 AM CDT) VITAMIN B12 931 232 - 1,245 pg/mL 11/19/2023 9:09 AM CDT [facility] Blood BLOOD SPECIMEN / Unknown Venipuncture / Unknown 11/18/2023 10:17 AM CDT 11/18/2023 10:18 AM CDT [facility] - 11/19/2023 9:09 AM CDT Biotin supplements may cause clinically significant interference for this test assay. ??If interference is suspected, it is strongly recommended that biotin is discontinued for at least one week prior to retesting. Megan Erickson DO CHEMISTRY Performing Organization Address [facility] de Phone Number [facility] [address] [place] [address], * (ABNORMAL) COMP METABOLIC PANEL (11/18/2023 10:17 AM CDT) SODIUM 143 136 - 145 mmol/L 11/18/2023 1:17 PM CDT [facility] POTASSIUM 4.2 3.5 - 5.1 mmol/L 11/18/2023 1:17 PM CDT [facility] CHLORIDE 105 98 - 107 mmol/L 11/18/2023 1:17 PM CDT [facility] CO2,TOTAL 27 22 - 29 mmol/L 11/18/2023 1:17 PM T [facility] ANION GAP 11 5 - 18 11/18/2023 1:17 PM [facility] GLUCOSE 103(H) 70 - 99 mg/dL 11/18/2023 1:17 PM [facility] CALCIUM 9.6 8.8 - 10.2 mg/dL 11/18/2023 1:17 PM [facility] BUN 17 8 - 23 mg/dL 11/18/2023 1:17 PM [facility] CREATININE 0.96 0.70 - 1.20 mg/dL 11/18/2023 1:17 PM [facility] BUN/CREAT RATIO 18 10 - 20 1:17 PM [facility] eGFR 81(L) >90 mL/min/1.7 3m2 11/18/2023 1:17 PM [facility] Comment:As of 2021, eG FR is calculated by the CKD-EPI creatinine equation without race adjustment. ??eGFR can be influenced by muscle mass, exercise, and diet. ??The reported eGFR is an estimation only and is only applicable if the renal function is stable. ALBUMIN 4.2 4.0 - 4.9 g/dL 11/18/2023 1:17 PM [facility] PROTEIN,TOTAL 7.5 6.0 - 8.0 g/dL 11/18/2023 1:17 PM [facility] BILIRUBIN,TOTAL 1.2 0.0 - 1.2 mg/dL 11/18/2023 1:17 PM [facility] ALK PHOSPHATASE 71 40 - 129 IU/L 11/18/2023 1:17 PM [facility] ALT (SGPT) 9(L) 10 - 50 IU/L 11/18/2023 1:17 PM [facility] AST (SGOT) 31 10 - 50 IU/L 11/18/2023 1:17 PM [facility] Blood BLOOD SPECIMEN / Unknown Venipuncture / Unknown 11/18/2023 10:17 AM CDT 11/18/2023 10:18 AM T Megan Erickson DO CHEMISTRY Performing Organization Address [facility]/ZIP Co de Phone Number [facility] [address] [place] [address] * SCAN-ELECTROCARDIOGRAM EKG (11/18/2023 12:00 AM CDT) Scanner OTHER * BUN (11/17/2023 11:48 AM CDT) BUN 18 8 - 23 mg/dL 11/18/2023 8:30 AM CDT [facility] Blood BLOOD SPECIMEN / Unknown Venipuncture / Unknown 11/17/2023 11:48 AM CDT 11/17/2023 11:48 AM CDT Lionel Hutson NP CHEMISTRY Performing Organization Address [facility] Co de Phone Number [facility] [address] [place] [address], * POTASSIUM (11/17/2023 11:48 AM CDT) Pathologist [facility] POTASSIUM 4.4 3.5 - 5.1 mmol/L 11/18/2023 9:06 AM CDT [facility] Blood BLOOD SPECIMEN / Unknown Venipuncture / Unknown 11/17/2023 11:48 AM CDT 11/17/2023 11:48 AM CDT Lionel Hutson NP CHEMISTRY Performing Organization Address [facility] Co de Phone Number [facility] [address] [place] [address], * (ABNORMAL) CREATININE (11/17/2023 11:48 AM CDT) eGFR 80(L) >90 mL/min/1.7 3m2 11/18/2023 8:30 AM CDT [facility] Comment:As of 2021, eG FR is calculated by the CKD-EPI creatinine equation without race adjustment. ??eGFR can be influenced by muscle mass, exercise, and diet. ??The reported eGFR is an estimation only and is only applicable if the renal function is stable. CREATININE 0.97 0.70 - 1.20 mg/dL 11/18/2023 8:30 AM CDT [facility] Blood BLOOD SPECIMEN / Unknown Venipuncture / Unknown 11/17/2023 11:48 AM CDT 11/17/2023 11:48 AM CDT Lionel Hutson NP CHEMISTRY [facility] [address] [place] [address], [place] * OCCULT BLOOD IFOBT STOOL [[id number]] (09/14/2017 10:02 AM CDT) STOOL BLOOD ,IFOBT Negative Negative 09/14/2017 10:10 AM CDT [facility] Stool STOOL SPECIMEN / Unknown Non-Blood / Unknown 09/14/2017 10:02 AM CDT 09/14/2017 10:02 AM CDT Kiersten Fitch MD LABORATORY Performing Organization Address [facility]/ZIP Co de Phone Number [facility] [address] [place] [address], * ANTI HCV (08/04/2016 10:05 AM CDT) HEPATITIS C ANTIBODY Non-Reacti ve Non-Reacti ve 08/04/2016 6:03 PM CDT [facility] Blood BLOOD SPECIMEN / Unknown Venipuncture / Unknown 08/04/2016 10:05 AM CDT 08/04/2016 10:05 AM CDT Narrative [facility] - 08/04/2016 6:03 PM CDT Antibodies to HCV not detected; does not exclude the possibility of exposure to HCV. Aravind Decker MD SEND OUTS [facility] [address] [place] [address], from Last 3 Months or Most Recently Relevant to Health Maintenance Advance Directives Documents on File Type Date Recorded Patient Illusionist Expl anation Healthcare Directive 06/30/2023 024 Healthcare [...] Preferences, Provider to review later Care Teams Surveillance Operator Relationship Specialty Start Date End Date Megan Erickson DO [address] [place] [id number] PCP - General Family Practice 11/18/23 [facility] [place] [address] [facility] [place] [address] 03/18/22
--- OUTSIDE RECORDS SUMMARY | 2024-01-16 21:31 | XMS_ITS ---
Author Organization [facility] Address [address] [place] [address] Care Team Providers Care Data Analysis Manager Name Role Phone Unavailable Unavailable Unavailable Surgery Details Not on file Complications Check Surgery Details section. Procedure Estimated Blood Loss Check Surgery Details section. Procedure Findings Check Surgery Details section. Procedure Specimens Taken Check Surgery Details section.
--- OUTSIDE RECORDS SUMMARY | 2024-01-16 21:31 | XMS_ITS | Clinical Summary ---
Author Organization [facility] Address [address] [place] [address] Care Team Providers Care Associate Professor Of Violin Name Role Phone Elsewhere, Pcp Primary Care Provider Unavailabl e Source Comments Patient records contain information from all sites at [facility]. For routine questions regarding patient records, call [phone] during business hours, M-F 8:00 AM - 5:00 PM Central Time. Record requests for emergency care only can be directed to [phone] at any time.[facility] Allergies Active Allergy Reactions Criticality Noted Date [...] How often do you attend chur or islam services? Patient declined 08/31/2021 Do you belong to any clubs o r organizations such as buddhism groups, unions, fraternal or athletic groups, or [...] Answer Date Recorded PHQ-2 Score 0 08/31/2021 [facility] - Occupational Stress Questionnaire Answer Date [...] months, how many places have you lived? [id number] 08/31/2021 In the last 12 months, was t here a time when you did not have a steady place to sleep or slept in a longterm (including now)? No 08/31/2021 Nutrition Answer Date [...] Comments Blood Pressure 118/82 03/29/2023 3:59 PM TICKET PULLER Pulse 82 03/29/2023 2:54 PM TICKET PULLER Temperature 36.5 ??C (97.7 ??F) 03/29/2023 3:59 PM CS T Respiratory Rate 18 03/29/2023 3:59 PM TICKET PULLER Oxygen Saturation 100% 03/29/2023 3:59 PM TICKET PULLER Inhaled Oxygen Concentration - - Weight 73.5 kg (162 lb 0.6 oz) 08/31/2021 7:42 A M CDT Height 182.9 cm (6') 03/29/2023 4:10 PM TICKET PULLER Body Mass Index 21.71 08/31/2021 7:42 AM CDT Plan of Treatment Health Maintenance Due Date Last Done Comments Hepatitis C Screening 1945 Zoster Vaccines (1 of 2) 01/13/1996 Depression Screening (Annual PHQ-2) 05/02/2023 Fall Risk Screen (Annual) 05/02/2023 COVID-19 Vaccine (2 - 2022-2 4 season) 2024 06/24/2020 Influenza Vaccine (#1) 2024 2, 01/24/2020, 02/26/2019, Additional history exists DTaP,Tdap,and Td Vaccines (2 - Td or Tdap) 06/16/2028 06/16/2018, 01/30/2005, 05/06/2004 Pneumococcal vaccine (65+ years) Completed 01/20/2015, 04/05/2013, 06/02/2012 Care Teams Associate Professor Of Violin Relationship Specialty Start Date End Date Elsewhere, Pcp PCP - General Internal Medicine 08/31/21
--- OUTSIDE RECORDS SUMMARY | 2024-01-16 21:31 | XMS_ITS | Continuity of Care Document ---
Author Organization [facility] Address [address] [place] [address] Phone Care Team Providers Care Accounts Clerk Name Role Phone Robert Hernandez MD Unavailable Unavailable Allergies, Adverse Reactions, Alerts Substance Reaction Status Criticality MEPERIDINE HCL Active No Informatio n morphine Active No Information Procedures Procedure Date [place] [facility] [place] visit,est, low 2007 Office/outpatient visit,est, low 2007 X-ray exam of total spine Office/outpatient visit,est, low 2007 Office/outpatient visit,est, low 2006 Office consultation, moderate-high X-ray exam lwr spine, min 4 views Advance Directives Directive Yes / No Effective Date File Name No Information Encounters Encounter Description Practice Location Reason(s) For Visit Diagnoses Date Provider Providers Copied on Encounter [facility], [address], [place], [place], [id number], [place] tel:[phone] [facility] No Information 6 Mehbod Amir. [facility] [place], [address], [place], [place], [id number] , [place]. tel:[phone] Office/Outpat ient Visit,[facility] Z [facility], [address], [place], [address], [place] tel:[phone] [facility] LUM[facility]AG[facility] 4 Mehbod Amir. [facility] [place], [address], [place], [place], [id number] , [place]. tel:[phone] Referring Provider: Aravind Morales, [facility] [address], [place], [address]. tel:[phone] Office/outpat ient visit,est, low Z [facility], [address], [place], [address], [place] tel:[phone] [employer] No Information Dec-0 1-200 8 Mehbod Amir. [facility], [address], [place], [place], [id number] , [place]. tel:[phone] Referring Provider: Aravind Morales, [employer] [address], [place], [address]. tel:[phone] Office/outpat ient visit,est, low Z [facility], [address], [place], [address], [place] tel:[phone] [employer] No Information Mar- 0-200 8 Mehbod Amir. [facility], [address], [place], [place], [id number] , [place]. tel:[phone] Referring Provider: Aravind Morales, [facility] [address] , [place], [address]. tel:[phone] Office/outpat ient visit,est, low Z [facility], [address], [place], [address], [place] tel:[phone] [employer] No Information Oct-2 8-200 8 Mehbod Amir. [facility], [address], [place], [place], [id number] , [place]. [phone] Referring Provider: Aravind Morales, [facility], [place], [address]. tel:[phone] Office/outpat ient visit,est, low Z [facility], [address], [place], [address], [place] tel:[phone] [employer] No Information 200 7 Mehbod Amir. [facility], [address], [place], [place], [id number] , . tel:[phone] Referring Provider: Aravind Morales, [address], [place], [address]. tel:[phone] Office consultation, moderate-high Z [facility] [place], [address] [place], [place] [address] [address], [place], [address], tel:[phone] [facility] Xunlei No Information 200 7 Mehbod Amir. [facility] [place], [address], [place], [place], [id number] , . tel:[phone] Referring Provider: Aravind Morales, [address], [place], [address]. tel:[phone] Family History Family Member Type Diagnosis Age [...]
--- OUTSIDE RECORDS SUMMARY | 2024-01-16 21:31 | XMS_ITS | Clinical Summary ---
Author Organization Replaced by [facility] Address [address] [place] [address] Care Team Providers Care Rope Machine Setter Name Role Phone Aravind Decker MD Primary Care Provider [phone] Source Comments You are receiving this document as you are listed as the primary care provider,follow-up provider, or the patient has been referred to you for consultation.This is in compliance with the Medicare andMedicaid EHR Incentive Program,which states Providers who transition their patient to another setting of careor provider of care or refers their patient to another provider of care shouldprovide summary care record for each transition of care or referral. [facility] Allergies Active Allergy Reactions Criticality Noted Date [...] Comments Blood Pressure 110/57 04/20/2021 5:22 AM LIFT SLAB OPERATOR Pulse 96 04/20/2021 5:22 AM LIFT SLAB OPERATOR Temperature 36.9 ??C (98.5 ??F) 04/20/2021 2:42 AM CS T Respiratory Rate 24 04/20/2021 5:22 AM LIFT SLAB OPERATOR Oxygen Saturation 96% 04/20/2021 5:22 AM LIFT SLAB OPERATOR Inhaled Oxygen Concentration - - Weight 73.5 kg (162 lb) 04/20/2021 2:42 AM LIFT SLAB OPERATOR Height 182.9 cm (6') 04/20/2021 2:42 AM LIFT SLAB OPERATOR Body Mass Index 21.97 04/20/2021 2:42 AM LIFT SLAB OPERATOR Plan of Treatment Health Maintenance Due Date Last Done Comments Hep C Screening (Preventive Services) 1945 Medicare Annual Wellness Visit 1945 Zoster/Shingles (1 of 2) 01/13/1996 RSV (1 - 1-dose 75+ series) 2021 COVID-19 Vaccine (2 - season) 2024 06/24/2020 Influenza (#1) 2024 02/26/2019, 01/30, 02/16/2018, Additional history exists DTaP/Tdap/Td [...] this topic Medical Devices Implanted Type Area Electric Truck Driver Device Identifier Shelf Expiration Date Model / Serial / Lot Comp Patella Gen Ii 41mm - [id number] Implanted:Qty : 1 on 01/15/2014 by Vini Duffy MD at [facility] DEVICE Right: K[employer] 07/20/2023 [id number] / NA / [id number] Comp Fem Legion Rt Sz8 - [id number] Implanted:Qty : 1 on 01/15/2014 by Vini Duffy MD at [facility] DEVICE Right: K[employer] 08/20/2023 [id number] / NA / [id number] Cement Bone Palacos R - [id number] Implanted:Qty : 1 on 01/15/2014 by Vini Duffy MD at [facility] DEVICE Right: KNEE [employer] 07/19/2018 [id number] / NA / [id number] Insert Legion Hiflex Cr 7-8 13 - [id number] Implanted:Qty : 1 on 01/15/2014 by Vini Duffy MD at [facility] DEVICE Right: K[employer] 05/21/2021 [id number] / NA / [id number] Baseplt Tib Metl Gensis Rt Sz8 - [id number] Implanted:Qty : 1 on 01/15/2014 by Vini Duffy MD at [facility] DEVICE Right: K[employer] 04/30/2023 [id number] / NA / [id number] Advance Directives * Full Code (Latest Code Status on File) Date Activated Date Inactivated Comments 01/15/2014 4:23 PM 01/17/2014 3:47 PM * Full Code Date Activated Date Inactivated Comments 01/15/2014 11:27 AM 01/15/2014 4:23 PM Care Teams Rope Machine Setter Relationship Specialty Start Date End Date Aravind Decker MD [address] [place] [address] PCP - General Family Practice 01/14/14
[2024-01-16 22:03] LABS: PCR FLU A Negative PCR FLU A (Negative); PCR FLU B Negative PCR FLU B (Negative); PCR RSV Negative PCR RSV (Negative); SARS PCR* Negative SARS-CoV-2 (Negative)
[2024-01-16] MEDS: DOXYCYCLINE HYCLATE 100 MG PO (22:05)
== END 2024-01-16 22:12 | disposition home or self-care (01) ==
PROVIDERS: Emergency Provider Emergency Medicine Emergency Medical Services; PCP Family Medicine
DX: J18.9 Pneumonia, unspecified organism (principal)
CPT/HCPCS: 71046; 87631; 99284; A9270

== ENCOUNTER 2024-08-24 19:17 | Emergency (ER) | payer OTHER, SELFPAY ==
--- OUTSIDE RECORDS SUMMARY | 2024-08-24 19:20 | XMS_ITS | Clinical Summary ---
Author Organization [facility] Address [address] [place] [address] Care Team Providers Care Diagnostic Tech Name Role Phone Elsewhere, Pcp Primary Care Provider Unavailabl e Source Comments Patient records contain information from all sites at [facility]. For routine questions regarding patient records, call [phone] during business hours, M-F 8:00 AM - 5:00 PM Central Time. Record requests for emergency care only can be directed to [phone] at any time.[facility] Allergies Active Allergy Reactions Criticality Noted [...] comments) 04/01/2016 Sertraline Nausea Only 03/07/2017 Medications digestive enzymes capsule Take 1 capsule by mouth daily. Active acetaminophen (TYLENOL) 500 mg tablet Take 500-1,000 mg by mouth. Active ascorbic acid, vitamin C, (VITAMIN C) 1,000 mg tablet Take 2 tablets by mouth 2 (two) times a day. 04/17/2020 Active aspirin 81 mg chewable tablet Chew 81 mg daily. 04/15/2021 Active cholecalciferol (VITAMIN D3) 50 mcg (2,000 Unit) [...] Active Problems No known active problems Immunizations Immunization Administration Dates Next Due Influenza TIV (IM) [...] How often do you attend chur or religion services? Patient declined 08/31/2021 Do you belong to any clubs o r organizations such as protestant groups, unions, fraternal or athletic groups, or [...] Answer Date Recorded PHQ-2 Score 0 08/31/2021 [facility] - Occupational Stress Questionnaire Answer Date Recorded [...] months, how many places have you lived? [id number] 08/31/2021 In the last 12 months, was t here a time when you did not have a steady place to sleep or slept in a intermediate (including now)? No 08/31/2021 Nutrition Answer Date [...] Recorded Sex Assigned at Not on file Legal Sex Male 5:19 AM SOCIAL WORK PROFESSOR Gender Identity Not on file Sexual Orientation Not on file Last Filed Vital Signs Vital Sign Reading Time Taken Comments Blood Pressure 118/82 03/29/2023 3:59 PM SOCIAL WORK PROFESSOR Pulse 82 03/29/2023 2:54 PM SOCIAL WORK PROFESSOR Temperature 36.5 C (97.7 F) 03/29/2023 3:59 PM SOCIAL WORK PROFESSOR Respiratory Rate 18 03/29/2023 3:59 PM SOCIAL WORK PROFESSOR Oxygen Saturation 100% 03/29/2023 3:59 PM SOCIAL WORK PROFESSOR Inhaled Oxygen Concentration - - Weight 73.5 kg (162 lb 0.6 oz) 08/31/2021 7:42 A M CDT Height 182.9 cm (6') 03/29/2023 4:10 PM SOCIAL WORK PROFESSOR Body Mass Index 21.71 08/31/2021 7:42 AM CDT Plan of Treatment Health Maintenance Due Date Last Done Comments Hepatitis C Screening 1945 Zoster Vaccines (1 of 2) 01/13/1996 RSV vaccine - (32-36 weeks) or 60+ years (1 - 1-dose 75+ series) 2021 COVID-19 Vaccine (2 - 2023- season) 2024 06/24/2020 Influenza Vaccine (#1) 2024 2, 01/24/2020, 02/26/2019, Additional history exists Depression Screening (Annual PHQ-2) 05/02/2024 Fall Risk Screen (Annual) 05/02/2024 DTaP,Tdap,and Td Vaccines (2 - Td or Tdap) 06/16/2028 06/16/2018, 01/30/2005, 05/06/2004 Pneumococcal vaccine (50+ years) Completed 01/20/2015, 04/05/2013, 06/02/2012 IPV Vaccines Aged Out No longer eligi ble based on patient's age to complete this topic Insurance [address] [place] [phone] [employer] Care Teams Diagnostic Tech Relationship Specialty Start Date End Date Elsewhere, Pcp PCP - General Internal Medicine 08/31/21
--- OUTSIDE RECORDS SUMMARY | 2024-08-24 19:20 | XMS_ITS | Clinical Summary ---
Author Organization [facility] Address [address] , [address] [place] [address] Phone Care Team Providers Care Director Of Strategic Programs Name Role Phone 7CareTeamNurse-MA, 7CareTeamNurse-MA Unavailable Unavailable Conditions or Problems Problem Name Problem Code Onset Date Status Entry Date Provider Comment Standard Description Annotate Therapeutic drug monitoring 716543213 (SNOMED CT) Active Flakita Tuesday Medication monitoring Iron deficiency 72022729 (SNOMED CT) Active Flakita Tuesday Iron deficiency Anxiety disorder 619159846 (SNOMED CT) Active Madison Ferrera MD Anxiety disorder Restless leg syndrome 62515911 (SNOMED CT) Active Madison Ferrera MD Restless legs Medications Medication Instructions Start Date Stop Date Generic Name NDC Provider PREGABALIN 50 MG CAPS TAKE ONE CAPSULE BY MOUTH THREE TIMES A DAY DIRECTED TAKE WITH 100MG CAP TOTAL DOSE 150-175 TO 200MG pregabalin [id number] Alyx Parrish PA-C PREGABALIN 25 MG CAPS TAKE 1 CAPSULE BY MOUTH THREE TIMES A DAY NEEDED FOR RESTLESS LEGS pregabalin [id number] Alyx Parrish PA-C PREGABALIN 50 MG CAPS TAKE 1 CAPSULE BY MOUTH TWO TIMES A DAY AND 1-2 CAPSULES BY MOUTH AT BEDTIME. pregabalin [id number] Alyx Hernandezgood PA-C PREGABALIN 25 MG CAPS Take 1-2 capsule by mouth every night at bedtime as directed (total qhs dose 175-200mg) pregabalin [id number] Alyx ROSAS-Devon PREGABALIN 50 MG CAPS Take 1 capsule by mouth three times a day as directed Take with 100mg cap (total dose 150-150-175 to 200mg) pregabalin [id number] Alyx ROSAS-C PREGABALIN 50 MG CAPS TAKE 1 CAPSULE BY MOUTH TWICE A DAY (MORNING AND EVENING) AND TAKE 1-2 CAPSULES BY MOUTH AT BEDTIME. pregabalin [id number] Flakita Davisday PREGABALIN 50 MG CAPS TAKE 1 CAPSULE BY MOUTH TWO TIMES A DAY AND 1-2 CAPSULES BY MOUTH AT BEDTIME. pregabalin [id number] Alyx ROSAS-C PREGABALIN 50 MG CAPS TAKE 1 CAPSULE BY MOUTH TWO TIMES A DAY (MORNING & EVENING). TAKE 1-2 CAPSULES BY MOUTH AT BEDTIME pregabalin [id number] Flakita Tuesday PREGABALIN 50 MG CAPS Take 1 capsule by mouth twice a day (MORNING AND EVENING) AND TAKE 1-2 CAPSULES BY MOUTH AT BEDTIME. pregabalin [id number] Flakita Tuesday PREGABALIN 25 MG CAPS Take 1 capsule by mouth three times a day as needed for restless legs pregabalin [id number] Flakita Tuesday PREGABALIN 25 MG CAPS TAKE 1 CAPSULE BY MOUTH THREE TIMES A DAY NEEDED FOR RESTLESS LEGS pregabalin [id number] Alyx ROSAS-C PREGABALIN 50 MG CAPS TAKE 1 CAPSULE BY MOUTH TWO TIMES A DAY (MORNING AND EVENING). TAKE 1-2 CAPSULES AT BEDTIME pregabalin [id number] Flakita Davisday PREGABALIN 100 MG CAPS TAKE 1 CAPSULE BY MOUTH THREE TIMES A DAY pregabalin [id number] Alyx ROSAS-C PREGABALIN 50 MG CAPS TAKE 1 CAPSULE BY MOUTH TWO TIMES A DAY (MORNING & EVENING). TAKE 1-2 CAPSULES BY MOUTH AT BEDTIME pregabalin 23123203935 Alyx PARSONC PREGABALIN 100 MG CAPS TAKE 1 CAPSULE BY MOUTH THREE TIMES A DAY pregabalin [id number] Alyx PARSONC FLECAINIDE ACETATE 100 MG TABS flecainide 27708407157 Alyx ROSAS-C ATENOLOL 50 MG TABS atenolol 69658267490 Alyx PARSONC FERROUS SULFATE 325 (65 Fe) MG TBEC 1 tablet twice a day ferrous sulfate 50566458820 Alyx PARSONC TRAMADOL HCL (ER BIPHASIC) 100 MG [id number] tramadol 15339496792 Alyx PARSONC DILTIAZEM HCL 30 MG TABS diltiazem hcl [id number] Alyx PARSONC TOPIRAMATE 25 MG TABS topiramate 82038241459 Alyx PARSONC LORAZEPAM 1 MG TABS lorazepam 82430034403 Alyx PARSONC tekusin tekusin Alyx PARSONC PREGABALIN 25 MG CAPS Take 1 capsule by mouth three times a day as needed for restless legs pregabalin [id number] Alyx PARSONC PREGABALIN 50 MG CAPS TAKE 1 CAPSULE IN THE AM AND AFTERNOON AND 1-2 CAPSULES AT BEDTIME (TOTAL DOSING 150 MG AM AND AFTERNOON AND 150-200 MG AT BEDTIME) pregabalin [id number] deuce Tuesday PREGABALIN 50 MG CAPS TAKE 1 CAPSULE BY MOUTH TWO TIMES A DAY (MORNING AND EVENING). TAKE 1-2 CAPSULES AT BEDTIME pregabalin [id number] Flakita Tuesday FLECAINIDE ACETATE 100 MG TABS flecainide 97571788388 Flakita Tuesday PREGABALIN 25 MG CAPS take 1 cap 3 times per daily. Increase to 2 caps nighttime dosing if needed after 1 week (total dosing 125 mg AM and afternoon and 150 mg qhs) pregabalin [id number] Flakita Tuesday PREGABALIN 50 MG CAPS TAKE 1 CAPSULE IN THE AM AND AFTERNOON AND 1-2 CAPSULES AT BEDTIME (TOTAL DOSING 150 MG AM AND AFTERNOON AND 150-200 MG AT BEDTIME) pregabalin [id number] Flakita Tuesday PREGABALIN 100 MG CAPS take 1 cap 3 times per day pregabalin [id number] Flakita Davisday PREGABALIN 100 MG CAPS TAKE 1 CAPSULE BY MOUTH THREE TIMES A DAY pregabalin 13022241466 Flakita Tuesday TRAMADOL HCL 50 MG TABS tramadol 23463109932 Flakita Tuesday PREGABALIN 100 MG CAPS take 1 cap 3 times per day pregabalin [id number] Flakita Tuesday PREGABALIN 25 MG CAPS take 1 cap 3 times per daily. Increase to 2 caps nighttime dosing if needed after 1 week (total dosing 125 mg AM and afternoon and 150 mg qhs) pregabalin [id number] deuce Tuesday TRAMADOL HCL 50 MG TABS take 1 tab qhs as needed for RLS rescue therapy. Not to exceed more than 2 nights/week tramadol 86085546887 Flakita Tuesday TRAMADOL HCL 50 MG TABS tramadol 22107843770 deuce Tuesday DOFETILIDE 250 MCG CAPS dofetilide 39039461550 Flakita Davisday SUMATRIPTAN SUCCINATE 50 MG TABS TAKE 1 TABLET (50 MG) BY MOUTH EVERY 2 HOURS IF NEEDED FOR MIGRAINE. GIVE AT MINIMUM 2HRS APART. MAX DOSE: 200MG PER 24HRS. sumatriptan succinate 54623852923 deuce Tuesday OMRON 3 SERIES BP MONITOR D USE DIRECTED OMRON 3 SERIES B P MONITOR D Flakita Tuesday FERROUS GLUCONATE 324 (38 Fe) MG TABS TAKE 1 TABLET BY MOUTH ONCE DAILY WITH A MEAL. ferrous gluconate 20967587504 deuce Tuesday SENNA 8.6 MG TABS TAKE 1 TABLET BY MOUTH 2 TIMES DAILY IF NEEDED FOR CONSTIPATION. sennosides 39885257353 Flakita Tuesday MIRTAZAPINE 7.5 MG TABS mirtazapine 70723041057 Flakita Tuesday METOPROLOL TARTRATE 25 MG TABS metoprolol tartrate 87813637837 Flakita Tuesday FUROSEMIDE 40 MG TABS furosemide 76974537628 Flakita Tuesday WARFARIN SODIUM 1 MG TABS warfarin 88311891122 deuce Tuesday METOPROLOL SUCCINATE ER 25 MG [id number] metoprolol succinate 58379377671 deuce Tuesday GABAPENTIN 600 MG TABS 1 tab po tid for restless legs syndrome. GABAPENTIN [id number] Madison Ferrera MD GABAPENTIN 600 MG TABS 1 tab po tid for restless legs syndrome. increaes per titration schedule GABAPENTIN [id number] Madison Ferrera MD TRAMADOL HCL (ER BIPHASIC) 100 MG [id number] TRAMADOL HCL [id number] Madison Ferrera MD ATENOLOL TABS ATENOLOL TABS 36804655311 Madison Ferrera MD DILTIAZEM HCL TABS DILTIAZEM HCL TABS 18006024090 Madison Ferrera MD COUMADIN TABLET WARFARIN SODIUM TABS 48380768770 Madison Ferrera MD MIRAPEX 0.5 MG ORAL TABLET PRAMIPEXOLE DIHYDROCHLORIDE 97850126221 Madison Ferrera MD GABAPENTIN 300 MG CAPS 900mg po qhs for RLS GABAPENTIN 23490779881 Madison Ferrera MD FERROUS SULFATE 325 (65 Fe) MG TBEC 1 tab twice a day for restless legs syndrome FERROUS SULFATE 81004088228 Madison Ferrera MD Medications Administered No information available. 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 Internal Other: Authorizatio n - OBS PTSTAUTHDT Done PT Startin g Authorization Date Replaced Document: (P) IRON AND TOTAL IRON BINDING CAPACITY, FERRITIN IRON SATUR % * % Iron sat uration [Mass Fraction] in Serum or Plasma TIBC * ug/dL Iron binding capacity [Mass/volume] in Serum or Plasma IRON * ug/dL Iron [Mass/vo lume] in Serum or Plasma Internal Other: Authorizatio n - OBS [email or web address] Yes Authoriza tion: Release of Information - Authorize [facility] - Payment and Healthcare Operations ROIAUTHOTHER Yes Authoriz ation: Release of Information - Authorize Others/Insurance - Payment and Healthcare Operations HIECONSENT Yes Consent To Release information to the Health Information Exchange (HIE) [email or web address] Yes Authorizat ion: Authorization for [facility] to leave messages, voicemail, send text messages, send emails AUTHRELHCARE Yes Authoriz ation: Release/Retrieval of Information to/from Healthcare Facilities, Pharmacy Benefit Payers and Providers AUTHPRIVPRAC Yes Authoriz ation: Notice of privacy practices AUTHBENEFIT Yes Authoriza tion: Assignment of Benefits and Payment Agreement Lab Report: (P) DRUG MONITOR ING, PANEL 8 WITH CONFIRMATION, URINE, DRUG ... [id number] * GE use only - for [employer] import when terms are not otherwise specified TRAMADOL UR * Tramadol drug screen, urine OTRAM CONF * ng/mL o-desmethy ltramadol Confirmation Urine DRUGSCRNOXID NEGATIVE <200 N Drug Sc reen - Oxidant CREATININE U 118.6 MG/DL > or = 20.0 N Creatinine [Mass/volume] in Urine OXYCODONE NEGATIVE <100 N Oxycodone urine screening OPIATES UR NEGATIVE <100 N Opiates [ Presence] in Urine THC URINE NEGATIVE ng/mL <20 N Cannabinoi ds [Presence] in Urine by Screen method U 6AM NEGATIVE ng/mL <10 N 6-Acetylmorp cydney, Urine Quant COCAIN METAB NEGATIVE ng/mL <150 N Benzoyl ecgonine [Presence] in Urine by Screen method BUPRENO UR NEGATIVE <5 N Buprenorp cydney, Urine BENZODIAZ UR NEGATIVE <100 N Benzodi azepines [Presence] in Urine Lab Report: FERRITIN FERRITIN 56 ng/mL 24-380 N Ferritin [Mass/volume] in Serum or Plasma Clinical Lists Update: Contr olled Substance Agreement - OBS CTRLSUBAGREE Signed The thomas ent has signed a controlled substance agreement form. The patient is not getting medicine from other doctors, and is using only one pharmacy and not abusing the medicine. The patient understands that there will Telemedicine: Telemedicine V isit fax MEDS REVIEW Done Documenta tion of current medications (procedure) Plan of Care Type Date Detail Appointment 10:40 AM Flakita capps MD, [address], [address], [place], [address], Pending order Follow up Sleep Pending order Follow up Sleep Pending order Ferritin Serum Pending order Ferritin Serum Pending order Patient Instruct ions Pending order Ferritin Serum Pending order Patient Instruct ions Pending order Patient Instruct ions Pending order Follow up Pending order Drug Monitor 8 (ETOH/AMP/BZO/Buprenepherine/GIOVANA/Heroin/THC/MDMA/OP I/OXY) Urine Pending order Drug Monitor Tra madol Librado Urine Pending order Ferritin Serum Pending order Patient Instruct ions Pending order Follow up Sleep JOSEPH Pending order Ferritin Serum Pending order Iron & Total Iro n-binding Capacity (TIBC) Pending order Instructions for Staff Pending order Follow up in cli brenda Pending order Other Test Pending order Patient Instruct ions Pending order Follow up Procedures Code Procedure Name Date Entry Date [facility]-[id number] Documentation of current medicatio ns ORDERS Patient Instructions ORDERS Patient Instructions ORDERS Patient Instructions [facility]-[id number] Documentation of current medicatio ns ORDERS Ferritin Serum ORDERS Follow up ORDERS Drug Monitor 8 (ETOH/AMP/BZO/Buprenepherine/GIOVANA/Heroin/THC /MDMA/OPI/OXY) Urine ORDERS Drug Monitor Tramadol Librado Urine ORDERS Ferritin Serum ORDERS Patient Instructions ORDERS Follow up Sleep JOSEPH ORDERS Instructions for Staff 01/13 ORDERS Ferritin Serum ORDERS Iron & Total Iron-binding Capacity (TIBC) ORDERS Follow up in clinic [facility]-[id number] Other Test [facility]-[id number] Documentation of current medicatio ns ORDERS Patient Instructions ORDERS Follow up [facility]-[id number] Documentation of current medicatio ns [facility]-[id number] Documentation of current medicatio ns [facility]-[id number] Documentation of current medicatio ns [facility]-[id number] Documentation of current medicatio ns [facility]-[id number] Documentation of current medicatio ns Vital Signs Date Name Value Unit Description Height 73 [in_us] height E&M BP Diastolic 80 mm[Hg] blood pressu re, diastolic BP Systolic 96 mm[Hg] blood pressur e, systolic Heart Rate 80 /min pulse rate BMI (Body Mass Index) 24.36 kg/m2 Bod y Mass Index (Ratio) Weight Measured 184 [lb_av] weight E& M Weight Measured 184 [lb_av] weight E& M Immunizations No information available. Advance Directives No information available.
--- OUTSIDE RECORDS SUMMARY | 2024-08-24 19:20 | XMS_ITS | Clinical Summary ---
Author Organization [facility] Address [address] [place] [address] Care Team Providers Care Patient Transportation Driver Name Role Phone [facility], Kvng Unavailable [phone] Kiersten Fitch MD Primary Care Provider Allergies Active Allergy Reactions Criticality Noted Date Comments Meperidine Dyspnea,Edema,Tachyc ardi a 07/08/2006 Facial swelling, after hypo with Phenergan Morphine Nausea And Vomiting 06/20/2007 Dronedarone Shortness Of Breath 04/29/2009 Promethazine Dyspnea,Edema,Tachyc ardi a 07/08/2006 Facial swelling, after hypo with Demerol Phenothiazines Angioedema High 08/10/2023 Pollen Extracts Other - Describe In Comment Field 04/01/2016 Sertraline Nausea Only 03/07/2017 Medications cholecalciferol (VITAMIN D3) 2,000 unit capsule Take 2 capsules by mouth once daily. 0 012 Active Zinc Gluconate 100 mg tab Take 50 mg by mouth once daily. 0 021 Active acetaminophen (TYLENOL EXTRA STRGTH) 500 mg tablet Take 500-1,000 mg by mouth every 6 hours if needed for Headache or Pain. Max acetaminophen dose: 4000mg in 24 hrs. Active aspirin chewable 81 mg chewable tabletIndications :S/P ascending aortic aneurysm repair Chew 1 Tablet (81 mg) by mouth once daily with a meal. 0 021 Active pregabalin (LYRICA) 50 mg capsule Take 1 Capsule (50 mg) by mouth three times daily. Take along with 100 mg capsules for a total daily dose of 150 mg three times daily Active pregabalin (LYRICA) 100 mg capsule Take 1 Capsule (100 mg) by mouth three times daily. Take along with 50 mg capsule for total dose 150 mg three times daily Active ascorbic acid, vitamin C, (Vitamin C) 1,000 mg tabletIndications :Preventative health care Take 2 Tablets (2,000 mg) by mouth once daily. Active Magnesium Glycinate (Mag Glycinate) 100 mg tabIndications:RL S (restless legs syndrome) Take 200 mg by mouth once daily. 180 Tablet 11 Active cyanocobalamin (Vitamin B-12) 1,000 mcg tablet Take 1 Tablet (1,000 mcg) by mouth once daily. Active ondansetron (ZOFRAN ODT) 4 mg disintegrating tabletIndications :Benign paroxysmal positional vertigo, unspecified laterality,Nausea Place 1 Tablet (4 mg) on the tongue every 8 hours if needed for Nausea/Vomiting . 20 Tablet Active metoprolol succinate (Toprol XL) 25 mg Sustained-Release tabletIndications :Migraine with aura, not intractable, without status migrainosus,Atypi bren atrial flutter (HC) Take 1 Tablet (25 mg) by mouth once daily. 180 Tablet 3 Active magnesium glycinate 100 mg magnesium cap TAKE 200 MG BY MOUTH ONCE DAILY. Active pregabalin (LYRICA) 25 mg capsule TAKE 1 CAPSULE BY MOUTH THREE TIMES A DAY NEEDED FOR RESTLESS LEGS Active naloxone (Narcan) 4 mg/actuation nasal sprayIndications: Encounter for long-term (current) use of high-risk medication Inhale 1 Bostic into affected nostril(s) each time if needed for Patient Diff To Arouse or Resp Rate < 8 / min (Overdose). Additional doses may be given every 2 to 3 minutes until emergency medical assistance arrives. 2 Each Active albuterol HFA (PRO-AIR; VENTOLIN; PROVENTIL) 90 mcg/actuation inhalerIndication s:Cough, unspecified type Inhale 1-2 Puffs by mouth every 4 hours if needed for Shortness Of Breath or Wheezing (cough). 1 Each 024 Active hydrOXYzine HCL (ATARAX) 25 mg tabletIndications :Panic attack Take 1 Tablet (25 mg) by mouth every 6 hours if needed for Anxiety. 25 Tablet 025 Active benzonatate (TESSALON) 100 mg capsuleIndication s:Cough, unspecified type Take 1-2 Capsules (100-200 mg) by mouth 3 times daily if needed for Cough. 21 Capsule 025 Active dofetilide (TIKOSYN) 250 mcg capsuleIndication s:Persistent atrial fibrillation (HC) Take 1 Capsule (250 mcg) by mouth every 12 hours. Pt is due for labs/EKG September 2024 180 Capsule 025 Active ammonium lactate 12 % creamIndications: Pre-ulcerative corn or callous Apply topically to affected area(s) two times daily. 385 g 5 025 Active SUMAtriptan 50 mg tabletIndications :Migraine with aura, not intractable, without status migrainosus Take 1 Tablet (50 mg) by mouth every 2 hours if needed for Migraine. Give at minimum 2hrs apart. Max Dose: 200mg per 24hrs.TAKE ONE TABLET BY MOUTH EVERY 2 HOURS NEEDED FOR MIGRAINE. GIVE AT MINIMUM 2HRS APART. MAX DOSE: 200MG PER 24HRS 10 Tablet 5 025 Active Graduated Compression StockingsIndicati ons:Edema of both legs FOR PERSONAL USE. ANKLE 26CM, CALF 38CM, ANKLE TO CALF LENGTH 10CM= BLACK - ESSENTIALS- 20/30MMHG- XL- KNEE LENGTH- CLOSED TOE 2 Each 2 025 Active traMADoL 50 mg tabletIndications :Sciatica of right side Take 1 Tablet (50 mg) by mouth 2 times daily if needed for Pain (Restless leg syndrome). Use max 2 nights per weeks. 20 Tablet 025 Active warfarin 1 mg tabletIndications :Persistent atrial fibrillation (HC),Anticoagulat ion monitoring, INR range 2-3,Atypical atrial flutter (HC) Take by mouth 2 mg (1 mg x 2) every Tue; 3 mg (1 mg x 3) all other days in the evening OR as directed. 025 Active Graduated Compression StockingsIndicati ons:Edema of both legs FOR PERSONAL USE. ANKLE 26CM, CALF 38CM, ANKLE TO CALF LENGTH 10CM= BLACK - ESSENTIALS- 20/30MMHG- XL- KNEE LENGTH- CLOSED TOE 2 Each 2 024 2024 Discontinued(R eorder (E-cancel not sent)) benzonatate (TESSALON) 100 mg capsuleIndication s:Cough, unspecified type Take 1 Capsule (100 mg) by mouth 3 times daily if needed for Cough. 21 Capsule 024 2024 Discontinued(* Med complete/Regim en complete/Level of care change) SUMAtriptan (IMITREX) 50 mg tabletIndications :Migraine with aura, not intractable, without status migrainosus Take 1 Tablet (50 mg) by mouth every 2 hours if needed for Migraine. Give at minimum 2hrs apart. Max Dose: 200mg per 24hrs. 10 Tablet 025 2024 Discontinued warfarin (COUMADIN) 1 mg tabletIndications :Persistent atrial fibrillation (HC),Anticoagulat ion monitoring, INR range 2-3,Atypical atrial flutter (HC) Take by mouth 2 mg (1 mg x 2) every e, Tue, Sat; 3 mg (1 mg x 3) all other days in the evening OR as directed. 235 Tablet 025 2024 Discontinued(R eorder (E-cancel not sent)) traMADoL (ULTRAM) 50 mg tabletIndications :Sciatica of right side Take 1 Tablet (50 mg) by mouth 2 times daily if needed for Pain (Restless leg syndrome). Use max 2 nights per weeks. 20 Tablet 025 2024 Discontinued(R eorder (E-cancel not sent)) SUMAtriptan 50 mg tabletIndications :Migraine with aura, not intractable, without status migrainosus TAKE ONE TABLET BY MOUTH EVERY 2 HOURS NEEDED FOR MIGRAINE. GIVE AT MINIMUM 2HRS APART. MAX DOSE: 200MG PER 24HRS 10 Tablet 025 2024 Discontinued(R eorder (E-cancel not sent)) Active Problems Problem Noted [...] Vascular Prosthesis. Size: 34 mm straight. REF: [id number]. LOT: [id number]. SN: [id number]. EXP: 08/30/2023. Implanted by Dr. Saud Carter [...] Encounters Date Type Department Care Team Description 08/23/2024 9:45 AM CDT Orders [place] [address] [place] [address] Lab, [facility] 08/23/2024 Anticoagulation (warfarin) [facility] [address] [place] [address] 1, [facility] Anticoagulation 08/23/2024 Travel 08/16/2024 8:50 AM CDT Office Visit [facility] [address] [facility] [place] [address] Kiersten Fitch MD Foot Problem (Left heel still feels the same sometimes feels better sometimes hurts worse. Still soaking foot a couple times a day in soapy water then applies cream.); Musculoskeletal Problem (Patient states muscles flutter.) 08/16/2024 Anticoagulation (warfarin) [facility] [address] [place] [address] 1, [facility] Anticoagulation 08/16/2024 Travel 08/14/2024 Telephone [facility] [address] [facility] [place] [address] Kiersten Fitch MD Refill Request 08/14/2024 Refill [facility] [address] [place] [address] Kiersten Fitch MD Refill Request (Sumatriptan) 07/18/2024 4:05 PM CDT Office Visit [facility] [address] Kiersten Fitch MD Foot Problem (Left Foot(heel) started getting some pain and thought it was his restless leg stuff but then says there is a sore on his heel but can't see it very well.) 07/18/2024 Travel 07/05/2024 8:25 AM ANALYTICS CONSULTANT Office Visit [facility] [address] Kiersten Fitch MD Medicare ANNUAL (subsequent) Visit (79 yr/Still sick after 20 days, cough is so bad not sleeping. Says it is the worst cough he has ever had.) 07/05/2024 Orders Only [facility] [address] [address] Renzo Good MD 1 scan: (1-Ord) NFLD-EKG-07/05/24 07/05/2024 Travel 06/28/2024 10:00 AM ANALYTICS CONSULTANT Office Visit [facility] [address] [place] [address] Kendrick Parikh MD Consult (Zaps all throughout body all the time - stomach discomfort, indigestion, takes 'digest basic' supplement, laxative daily, vegetarian) 06/28/2024 Travel 06/27/2024 Telephone [facility] [address] [address] Renzo Good MD Medication Management (Tikosyn) 06/27/2024 Telephone [facility] [address] [place] [address] Kiersten Fitch MD Prior Authorization (hydrOXYzine HCL (ATARAX) 25 mg tablet - APPROVED 06/30/2024 - 07/04/2025) 06/26/2024 Refill [facility] [address] [address] Renzo Good MD Refill Request (Dofetilide) 06/21/2024 12:10 PM ANALYTICS CONSULTANT Office Visit [facility] [address] [place] [address] Selina Meza, [employer] Cough 06/21/2024 Travel 06/21/2024 Telephone [facility] [address] [place] [address] Ophelia Urias PA Medication Management (Rx needed ) 06/19/2024 9:45 AM ANALYTICS CONSULTANT Ancillary Procedure [facility] [address] [place] [address] 06/19/2024 9:05 AM ANALYTICS CONSULTANT Office Visit [facility] [address] [place] [address] Ophelia Urias PA URI 06/19/2024 Travel 06/14/2024 9:15 AM ANALYTICS CONSULTANT Office Visit [facility] [address] [place] [address] Kiersten Fitch MD Follow Up (6 week check in); Back Pain (Pain down right side of leg); Anxiety (Would like to see about anxiety meds.) 06/14/2024 Anticoagulation ([facility]farin) [facility] [address] [place] [phone] 1, [facility] Anticoagulation 06/14/2024 Telephone [facility] [address] [place] [address] Kiersten Fitch MD Anticoagulation (POCT or venous?) 06/14/2024 Travel 06/08/2024 Refill [facility] [address] [place] [address] Kiersten Fitch MD Refill Request (Warfarin) 06/06/2024 Telephone [facility] [address] [facility] [address] [place] [address] Renzo Good MD Results (Coronary CTA) 06/04/2024 Telephone [facility] [address] [place] [address] Kiersten Fitch MD Medication Management 05/30/2024 9:30 AM ANALYTICS CONSULTANT Ancillary Procedure [facility] Betsy Munroe [address] [place] [address] [address] [facility] [place] [address] 05/30/2024 Travel 05/29/2024 Telephone [facility] [address] [place] [address] [place] [address] Angelique Parks NP Questions (Patient call re: CT scan prep) from Last 3 Months Immunizations Immunization Administration Dates Next Due COVID-19 vaccine (Rockabox NTDigiPath 30mcg/0.3mL) PF, MDV 06/24/2020 Influenza RIV4 (Age [...] Answer Date Recorded PHQ-2 TOTAL SCORE 3 07/05/2024 Social Connections Answer Date Recorded Do you often feel lonely or isolated from those around you? 0 05/26/2023 Financial Resource Strain Answer Date R ecorded Difficulty of Paying Living Expenses 3 12/17/2022 Difficulty of Paying Living Expenses Not on file 12/17/2022 Food Insecurity Answer Date Recorded Do you worry your food will run out before you are able to buy more? 2 05/26/2023 Transportation Needs Answer Date Record ed Does lack of transportation keep you from medica l appointments? 1 05/26/2023 Does lack of transportation keep you from work, meetings or getting things that you need? 1 05/26/2023 Housing Stability Answer Date Recorded What is your housing situation today? 1 05/26/2023 Interpersonal Safety Answer Date Record ed Are you being hit, kicked, p ushed or yelled at (see row info)? No 04/23/2024 Interpersonal Safety Abuse 12 - 18 Not on file 04/23/2024 Interpersonal Safety Ambulatory Vulnerability No t on file 04/23/2024 Utilities Answer Date Recorded Do you have trouble paying f or utilities (for example, heat, electricity, water, phone)? 1 05/26/2023 Sex and Gender Information Value Date Recorded Sex Assigned at Not on file Legal Sex Male 5:22 AM ANALYTICS CONSULTANT Gender Identity Not on file Sexual Orientation Not on file Obstetrics History Last Filed Vital Signs Vital Sign Reading Time Taken Comments Blood Pressure 108/67 08/16/2024 8:59 AM CDT Pulse 84 08/16/2024 8:59 AM CDT Temperature 36.1 C (96.9 F) 06/21/2024 12:12 PM ANALYTICS CONSULTANT Respiratory Rate 16 06/21/2024 12:12 PM ANALYTICS CONSULTANT Oxygen Saturation 99% 08/16/2024 8:59 AM CDT Inhaled Oxygen Concentration - - Weight 86.7 kg (191 lb 3.2 oz) 08/16/2024 8:59 A M CDT Height 180.3 cm (5' 11) 07/05/2024 8:32 AM ANALYTICS CONSULTANT Body Mass Index 26.67 07/05/2024 8:32 AM ANALYTICS CONSULTANT Plan of Treatment Upcoming Encounters Date Type Department Care Team (Late st Contact Info) Description 09/13/2024 9:40 AM CDT Office Visit [facility] [address] [facility] [place] [address] Kiersten Fitch MD [address] [place] [address] Health Maintenance Due Date Last Done Comments Zoster (shingles) series for age 50+ (1 of 2) 01/13/1996 RSV vaccine for adults or (1 - 1-dose 75+ series) 2021 COVID-19 vaccine series ( season) 2024 06/24/2020 Influenza Vaccine (Season Ended) 2024 03/29/2022, 01/24/2020, 02/26/2019, Additional history exists BMI (ht and wt on same day) for age 18+ 07/05/2025 07/05/2024, 03/26/2024, 11/18/2023, Additional history exists Depression screening for age 12+ 07/05/2025 07/05/2024, 06/27/2024, 06/27/2024, Additional history exists Medicare Wellness for age 65+ 07/06/2025, 07/04/2023, 06/30/2022, Additional history exists Tetanus booster 06/16/2028 06/16/2018, 1005/2004, 05/06/2004 Pneumococcal series for age 50+ Completed 01/20/2015, 04/05/2013, 06/02/2012 Hepatitis C screening for ag e 18-79 Completed 08/04/2016 Tdap Completed 06/16/2018 Medical Devices Implanted Type Area Cyber Security Architect Device Identifier Shelf Expiration Date Model / Serial / Lot Occluder Erma 50mm Atriclip Flex V Exclusion Sys - [id number] Implanted:Qty: 1 on 03/27/2021 by Saud Carter MBBS at [facility] Left: [employer] 10/31/2023 [id number] / / [id number] Description:Implant location : Left atrial appendage Left atrial appendage. AtriCure AtriClip FLEX-V. ERMA Exclusion System. Size: 50. REF: [id number]. LOT: [id number]. EXP: 10/31/2023. Implanted by Dr. Saud Carter on 03/27/2021. Graft Vascular Gelweave 34mm X 30cm Implanted:Qty: 1 on 03/27/2021 by Saud Carter MBBS at [facility] N/A: A[employer] 08/30/2023 [id number] / [id number] / [id number] Procedures Procedure Name Priority Date/Time Associated Diagnosis Comments PROTIME-INR Routine 08/23/2024 9:39 AM CDT Anticoagulation monitoring, INR range 2-3 Persistent atrial fibrillation (HC) INR,POCT Routine 08/16/2024 9:39 AM CDT Anticoagulation monitoring, INR range 2-3 Persistent atrial fibrillation (HC) EKG 12 LEAD Routine 07/05/2024 1:26 PM ANALYTICS CONSULTANT Therapeutic drug monitoring BUN Routine 07/05/2024 9:40 AM ANALYTICS CONSULTANT Therapeutic drug monitoring CREATININE Routine 07/05/2024 9:40 AM ANALYTICS CONSULTANT Therapeutic drug monitoring POTASSIUM Routine 07/05/2024 9:40 AM ANALYTICS CONSULTANT Therapeutic drug monitoring CELIAC CASCADE PANEL Routine 06/28/2024 10:49 AM ANALYTICS CONSULTANT Periumbilical abdominal pain Epigastric pain Constipation, unspecified constipation type XR CHEST 2 VIEWS PA AND LATERAL KARYN 06/19/2024 9:55 AM ANALYTICS CONSULTANT Influenza-like illness COVID/FLU/RSV PANEL Routine 06/19/2024 9 :14 AM ANALYTICS CONSULTANT Acute cough INR,POCT Routine 06/14/2024 9:56 AM ANALYTICS CONSULTANT Anticoagulation monitoring, INR range 2-3 Persistent atrial fibrillation (HC) CT CARDIAC CORONARY ARTERIES CV DUAL READ Routine 05/30/2024 10:34 AM ANALYTICS CONSULTANT Chronic atrial fibrillation, unspecified (HC) CT CARDIAC CORONARY ARTERIES RAD DUAL READ Routine 05/30/2024 10:34 AM ANALYTICS CONSULTANT Chronic atrial fibrillation, unspecified (HC) ANTI HCV Routine 08/04/2016 10:05 AM CDT Need for hepatitis C screening test from Last 3 Months or Most Recently Relevant to Health Maintenance Results * (ABNORMAL) PROTIME-INR [[id number]] - Standing Order (08/23/2024 9:39 AM CDT) INR 1.9(H) <1.3 08/23/2024 10:26 AM CDT [facility] PROTIME 21.5(H) 10.6 - 12.4 sec 08/23/2024 10:26 AM CDT [facility] Blood BLOOD SPECIMEN / Unknown [facility] / Unknown 08/23/2024 9:39 AM CDT 08/23/2024 9:39 AM CDT [facility] - 08/23/2024 10:26 AM CDT Therapeutic Range 2.0-3.0 for most anticoagulated patients 2.5-3.5 [...] seconds if the patient is on UFH. us Kiersten Fitch MD HEMATOLOGY Final R esult [facility] [address] [place], [place] [id number] * (ABNORMAL) INR - POCT [[id number]] - Standing Order (08/16/2024 9:39 AM CDT) Only the most recent of2 resultswithin the time period is included. Pathologist [facility] INR 1.8(H) ratio [facility] Comment: INRs >2.9 may be falsely elevated in patients receiving either unfractionated Heparin or Low Molecular Weight Heparin. Follow up testing in a hospital laboratory may be helpful if clinically indicated. INR results of > or = 5.0 should be verified using the standard venipuncture procedure. Reference Range 0.9-1.1 Moderate-intensity Warfarin Therapy 2.0-3.0 Higher-intensity Warfarin Therapy 3.0-4.0 PROTHROMBIN TIMEP 21.4(H) 10.5 - 13.1 sec [facility] Comment: Point of care fingerstick Prothrombin Time/INR results may vary from venous Prothrombin Time/INR methodologies. Any results exhibiting inconsistency with the patient's clinical status should be repeated using a venous Prothrombin Time/INR method. Blood BLOOD SPECIMEN / Unknown 08/16/2024 9:39 AM CDT 08/16/2024 9:39 AM CDT Kiersten Fitch MD LABORATORY Final R esult Performing Organization Address City/[facility]/ZIP Co de Phone Number [facility] [address] [place] [address], [place] [phone] [facility] [address] [place] [address] * EKG 12 LEAD (07/05/2024 1:26 PM ANALYTICS CONSULTANT) Renzo Good MD EKG ORD Final Re sult * BUN (07/05/2024 9:40 AM ANALYTICS CONSULTANT) UREA NITROGEN (BUN) 16 7 - 25 mg/dL [facility] Blood BLOOD SPECIMEN / Unknown 07/05/2024 9:40 AM ANALYTICS CONSULTANT 07/05/2024 9:41 AM ANALYTICS CONSULTANT Renzo Good MD CHEMISTRY Final Re sult Performing Organization Address City/[facility] Co de Phone Number [facility] [address] [place] [address], [place] [phone] [facility] [address] [place] [address] * POTASSIUM (07/05/2024 9:40 AM ANALYTICS CONSULTANT) POTASSIUM 4.5 3.5 - 5.3 mmol/L [facility] Blood BLOOD SPECIMEN / Unknown 07/05/2024 9:40 AM ANALYTICS CONSULTANT 07/05/2024 9:41 AM ANALYTICS CONSULTANT Renzo Good MD CHEMISTRY Final Re sult Performing Organization Address [facility] de Phone Number [facility] [address] [place] [address], [facility] [address] [place] [address] * CREATININE (07/05/2024 9:40 AM ANALYTICS CONSULTANT) [facility] CREATININE 0.98 0.70 - 1.28 mg/dL [facility] EGFR 79 > OR = 60 mL/min/1.73 m2 [facility] Blood BLOOD SPECIMEN / Unknown 07/05/2024 9:40 AM ANALYTICS CONSULTANT 07/05/2024 9:41 AM ANALYTICS CONSULTANT Renzo Good MD CHEMISTRY Final Re sult Performing Organization Address [facility] de Phone Number [facility] [address] [place] [address], [facility] [address] [place] [address] * (ABNORMAL) CELIAC CASCADE PANEL (06/28/2024 10:49 AM ANALYTICS CONSULTANT) [facility] CELIAC DISEASE COMPREHENSIVE PANEL INTERPRETATION [facility] Comment: No serological evidence of celiac disease. Total serum IgA is elevated. Consider mucosal inflammatory conditions or underlying gammopathy. TISSUE TRANSGLUTAMINASE AB, IGA <1.0 U/mL [facility] Comment: Value Interpretation ----- <15.0 Antibody not detected > or = 15.0 Antibody detected IMMUNOGLOBULIN A 392(H) 70 - 320 mg/dL [facility] Blood BLOOD SPECIMEN / Unknown 06/28/2024 10:49 AM ANALYTICS CONSULTANT 06/28/2024 10:50 AM ANALYTICS CONSULTANT Kendrick Parikh MD SEND OUTS Final Res ult Performing Organization Address City/[facility]/ZIP Co de Phone Number [facility] [address] [place] [address], [facility] [address] [place] [address] * XR CHEST 2 VIEWS PA AND LATERAL (06/19/2024 9:55 AM ANALYTICS CONSULTANT) Anatomical Region Laterality Modality CHEST, THORAX, Lung, HEART Compu amarilys Radiography 06/19/2024 10:1 8 AM ANALYTICS CONSULTANT Impressions 06/19/2024 10:18 AM ANALYTICS CONSULTANT No evidence of acute cardiopulmonary disease. Dictated by Juan J Stevenson MD @ 06/19/2024 10:18:43 AM (Electronically Signed) Narrative 06/19/2024 10:18 AM ANALYTICS CONSULTANT For Patients: As a result of the Cures Act, medical imaging exams and procedure reports are released immediately into your electronic medical record. You may view this report before your referring provider. If you have questions, please contact your health care provider. INDICATION: Influenza like illness. TECHNIQUE: Chest 2 views. COMPARISON: 04/17/2024. FINDINGS: No pneumothorax or pleural effusion. Emphysema with bibasilar scarring and atelectasis, as before. Lungs are otherwise clear. Aortic atherosclerosis. Median sternotomy and left atrial appendage clip, as before. Mild cardiomegaly, unchanged. No pulmonary edema. Upper abdomen and osseous structures as imaged show no acute abnormality. Procedure Note Juan J Stevenson, DO - 06/19/2024 For Patients: As a result of the Cures Act, medical imagingexams and procedure reports are released immediately into your electronicmedical record. You may view this report before your referring provider.If you have questions, please contact your health care provider. INDICATION: Influenza like illness. TECHNIQUE: Chest 2 views. COMPARISON: 04/17/2024. FINDINGS: No pneumothorax or pleural effusion. Emphysema with bibasilar scarring andatelectasis, as before. Lungs are otherwise clear. Aortic atherosclerosis.Median sternotomy and left atrial appendage clip, as before. Mildcardiomegaly, unchanged. No pulmonary edema. Upper abdomen and osseousstructures as imaged show no acute abnormality. IMPRESSION: No evidence of acute cardiopulmonary disease. Dictated by Juan J Stevenson MD @ 06/19/2024 10:18:43 AM (Electronically Signed) [facility] Final Result * COVID/FLU/RSV PANEL (06/19/2024 9:14 AM ANALYTICS CONSULTANT) COVID 19 [facility] MOLECULAR Negative Negative 06/19/2024 2:46 PM ANALYTICS CONSULTANT [facility] Comment:All PCR tests are conklin bject to false negative result due to variability in viral load and collection technique. A negative result does not rule out a SARS-CoV-2 infection. Clinical correlation required. INFLUENZA A PCR Negative 2:46 PM ANALYTICS CONSULTANT [facility] INFLUENZA B PCR Negative 2:46 PM ANALYTICS CONSULTANT [facility] Respiratory Syncytial Virus Negative 06/19/2024 2:46 PM ANALYTICS CONSULTANT [facility] Swab NASOPHARYNGEAL SWAB / Unknown Non-Blood / Unknown 06/19/2024 9:14 AM ANALYTICS CONSULTANT 06/19/2024 9:37 AM ANALYTICS CONSULTANT Ophelia ROSAS MICROBIOLOGY Final Result [facility] [address] [place] [address], * CT CARDIAC CORONARY ARTERIES CV DUAL READ (05/30/2024 10:34 AM ANALYTICS CONSULTANT) Anatomical Region Laterality Modality HEART Computed Tomogra phy 05/30/2024 10:1 5 AM ANALYTICS CONSULTANT Narrative 05/30/2024 11:42 AM ANALYTICS CONSULTANT [facility] Cardiac CT Report Name: PO ENGLISH : Scan Date: Accession Number: [id number] Status: Final Electronically signed by Jonathan You 11:42:52 VITALS ===== HEIGHT: 72 in (183 cm) WEIGHT: 188 lbs (85 kgs) BSA: 2.08 m^2 BMI: 25 kg/m^2 BP: 130 / 73 mmHg FINAL IMPRESSION ===== 1. Mild nonobstructive coronary atherosclerosis. 2. Calcium score is 0. 3. Intact ascending aorta graft repair. 4. 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 5. Left atrial appendage has been surgically excluded with AtriClip device. 6. No evidence of epicardial coronary artery disease to explain patient's symptoms. 7. See separate radiology report for non-cardiac findings. STUDY QUALITY: Study quality is good. CAD-RADS: CAD-RADS Classification 2 (25-49% stenosis). CALCIUM SCORING: Total coronary artery calcium score 0. DOMINANCE: Codominant coronary artery system. LM: The LM has calcified atherosclerosis. There is a <25% LM stenosis. LAD: The proximal LAD has partially calcified atherosclerosis. There is a 25-49% proximal LAD stenosis. The mid LAD has calcified atherosclerosis. There is a <25% mid LAD stenosis. There is no distal LAD stenosis. D1: The first diagonal is normal. D2: The second diagonal is too small to characterize. LCX: The LCx is normal. OM1: The first obtuse marginal is normal. OM2: The second obtuse marginal is normal. LEFT PDA: The left PDA is too small to characterize. LEFT PLB: The left posterolateral branch is normal. RCA: The RCA is normal. RIGHT PDA: The right PDA is too small to characterize. OTHER FINDINGS: Thoracic aorta: Aortic sinus maximum cusp-cusp: 45 mm and area of 13.7 cm2. Ascending aorta: Intact graft repair Descending thoracic aorta maximum diameters: 37 x 35 mm. Pericardium: No effusion. Left atrium: Normal contrast opacification. Appendage has been excluded with AtriClip device. Atrial septum: No evidence of shunt. Pulmonary veins: Normal anatomy. Pulmonary trunk: 31 x 29 mm. Coronary artery plaque quantification (calculated by [employer] analysis): Total plaque volume is mm3 Total percentage atheroma volume is % [High risk plaque burden defined by any of the following: Presence of >=70% diameter stenosis Coronary calcium score >1000 Coronary calcium score >300 and percentage atheroma volume >=5% Percentage atheroma volume >15%] CALCIUM SCORING TABLE ===== . . Number of Lesions Pattern of Calcium Volume Total Score +-------+ + +--------+ + LM 0 LAD 0 LCx 0 RCA 0 Ramus '-------+ + +--------+ ' SCAN INFO ===== TEST TYPE: Calcium score, Coronary CT Angiography SCANNER WIRE STEWARD: SIEMENS SCANNER MODEL: PSG Construction DOSE REDUCTION ALGORITHM: Helical with dose modulation EKG GATED: Yes PRE-CONTRAST: Yes POST-CONTRAST: Yes 3D RECONSTRUCTION: Yes GENERAL ----- --- CONTRAST AGENT CONTRAST AGENT USED?: Yes TYPE: Omnipaque 350 DOSE: 100 ml RATE: 6.5 ml/s ROUTE: IV ARM: Right BOLUS TECHNIQUE: Biphasic CT CONTRAST REACTION: None MEDICATION ADMINISTERED DURING SCAN TYPE: Nitroglycerin, sublingual, B-Blockers NITROGLYCERIN, TOTAL DOSE: 0.8 mg B-ALEJANDRINA TYPE: Oral, IV B-ALEJANDRINA NAME, ORAL: Metoprolol tartrate B-ALEJANDRINA NAME, IV: Metoprolol tartrate B-BLOCKERS, ORAL DOSE: 50 mg B-BLOCKERS, IV DOSE: 10 mg NUMBER OF DOSES: 2 RADIATION DOSE DLP: 479 KV: 110 SETUP PATIENT TYPE: Outpatient REASON(S) FOR SCAN: Chest pain, Shortness of breath REFERRING PHYSICIAN: ANGELIQUE PARKS TECHNOLOGIST: Radha Garcia ===== Patient Account [id number] ICD10 Codes I48.20 Report generated by [employer], a product of [employer] Procedure Note Jonathan You MD - 05/30/2024 [facility] Cardiac CT Report Name: PO ENGLISH : Scan Date: Accession Number: [id number] Status: Final Electronically signed by Jonathan You 11:42:52 VITALS ===== HEIGHT: 72 in (183 cm) WEIGHT: 188 lbs (85 kgs) BSA: 2.08 m^2 BMI: 25 kg/m^2 BP: 130 / 73 mmHg FINAL IMPRESSION ===== 1. Mild nonobstructive coronary atherosclerosis. 2. Calcium score is 0. 3. Intact ascending aorta graft repair. 4. 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 5. Left atrial appendage has been surgically excluded with AtriClipdevice. 6. No evidence of epicardial coronary artery disease to explain patient'ssymptoms. 7. See separate radiology report for non-cardiac findings. STUDY QUALITY: Study quality is good. CAD-RADS: CAD-RADS Classification 2 (25-49% stenosis). CALCIUM SCORING: Total coronary artery calcium score 0. DOMINANCE: Codominant coronary artery system. LM: The LM has calcified atherosclerosis. There is a <25% LM stenosis. LAD: The proximal LAD has partially calcified atherosclerosis. There is a25-49% proximal LAD stenosis. The mid LAD has calcified atherosclerosis. There is a <25% mid LAD stenosis. Thereis no distal LAD stenosis. D1: The first diagonal is normal. D2: The second diagonal is too small to characterize. LCX: The LCx is normal. OM1: The first obtuse marginal is normal. OM2: The second obtuse marginal is normal. LEFT PDA: The left PDA is too small to characterize. LEFT PLB: The left posterolateral branch is normal. RCA: The RCA is normal. RIGHT PDA: The right PDA is too small to characterize. OTHER FINDINGS: Thoracic aorta: Aortic sinus maximum cusp-cusp: 45 mm and area of 13.7 cm2. Ascending aorta: Intact graft repair Descending thoracic aorta maximum diameters: 37 x 35 mm. Pericardium: No effusion. Left atrium: Normal contrast opacification. Appendage has been excludedwith AtriClip device. Atrial septum: No evidence of shunt. Pulmonary veins: Normal anatomy. Pulmonary trunk: 31 x 29 mm. Coronary artery plaque quantification (calculated by [employer]): Total plaque volume is mm3 Total percentage atheroma volume is % [High risk plaque burden defined by any of the following: Presence of >=70% diameter stenosis Coronary calcium score >1000 Coronary calcium score >300 and percentage atheroma volume >=5% Percentage atheroma volume >15%] CALCIUM SCORING TABLE ===== . . Number of Lesions Pattern of Calcium Volume Total Score +-------+ + +--------+ + LM 0 LAD 0 LCx 0 RCA 0 Ramus '-------+ + +--------+ ' SCAN INFO ===== TEST TYPE: Calcium score, Coronary CT Angiography SCANNER WIRE STEWARD: SIEMENS SCANNER MODEL: PSG Construction DOSE REDUCTION ALGORITHM: Helical with dose modulation EKG GATED: Yes PRE-CONTRAST: Yes POST-CONTRAST: Yes 3D RECONSTRUCTION: Yes GENERAL ----- --- CONTRAST AGENT CONTRAST AGENT USED?: Yes TYPE: Omnipaque 350 DOSE: 100 ml RATE: 6.5 ml/s ROUTE: IV ARM: Right BOLUS TECHNIQUE: Biphasic CT CONTRAST REACTION: None MEDICATION ADMINISTERED DURING SCAN TYPE: Nitroglycerin, sublingual, B-Blockers NITROGLYCERIN, TOTAL DOSE: 0.8 mg B-ALEJANDRINA TYPE: Oral, IV B-ALEJANDRINA NAME, ORAL: Metoprolol tartrate B-ALEJANDRINA NAME, IV: Metoprolol tartrate B-BLOCKERS, ORAL DOSE: 50 mg B-BLOCKERS, IV DOSE: 10 mg NUMBER OF DOSES: 2 RADIATION DOSE DLP: 479 KV: 110 SETUP PATIENT TYPE: Outpatient REASON(S) FOR SCAN: Chest pain, Shortness of breath REFERRING PHYSICIAN: ANGELIQUE PARKS TECHNOLOGIST: Radha Garcia BILLING ===== Patient Account [id number] ICD10 Codes I48.20 Report generated by [employer], a product of [employer] Angelique Parks [address] CT Final Result * CT CARDIAC CORONARY ARTERIES DUAL READ (05/30/2024 10:34 AM ANALYTICS CONSULTANT) Anatomical Region Laterality Modality HEART Computed Tomogra phy Impressions 05/31/2024 9:20 AM ANALYTICS CONSULTANT See separate cardiology report for cardiac findings. Please note that all CT scans at this facility use dose modulation, iterative reconstruction and/or weight-based dosing when appropriate to reduce radiation dose to as low as reasonably achievable. Kalee Menjivar M.D. Diagnostic/Breast Radiologist [email or web address] TKP/sp / Narrative 05/31/2024 9:20 AM ANALYTICS CONSULTANT For Patients: As a result of the 21st Century Cures Act, medical imaging exams and procedure reports are released immediately into your electronic medical record. You may view this report before your referring provider. If you have questions, please contact your health care provider. THIS IS THE RADIOLOGY OVER READ REPORT OF A DUAL READ STUDY. READ THE SEPARATE CARDIOLOGY REPORT FOR CARDIOVASCULAR FINDINGS. REPORTS MAY BE FINALIZED AT DIFFERENT TIMES. TECHNIQUE: Please see cardiology report for technical information. CT cardiac coronary arteries with contrast. 100 cc Omnipaque 350 intravenous contrast. This exam is being performed in conjunction with the services provided by the [facility] ([facility]). INDICATION: Cardiac over-read. FINDINGS: No central pulmonary emboli seen. Median sternotomy. The visualized lungs demonstrate mild atelectasis. Small hiatal hernia. Angelique Parks [address] CT Final Result * ANTI HCV (08/04/2016 10:05 AM CDT) HEPATITIS C ANTIBODY Non-Reacti ve Non-Reacti ve 08/04/2016 6:03 PM CDT [facility] Blood BLOOD SPECIMEN / Unknown Venipuncture / Unknown 08/04/2016 10:05 AM CDT 08/04/2016 10:05 AM CDT N[facility]ative [facility] 08/04/2016 6:03 PM CDT Antibodies to HCV not detected; does not exclude the possibility of exposure to HCV. Aravind Decker MD SEND OUTS Final Result [facility] [address] [place] [address], from Last 3 Months or Most Recently Relevant to Health Maintenance Insurance MEDICARE PART B HB ONLY MEDICARE PART A HB ONLY MEDICA [facility] [facility] [place]ICE MEDICARE PART B HB ONLY [id number] [place] [id number] MEDICARE P[employer] WORK[employer] COMP [facility] [employer] INS Advance Directives Documents on File Type Date Recorded Patient Aligning Checker Expl anation Healthcare Directive 06/30/2023 024 Healthcare [...] Preferences, Provider to review later Care Teams Patient Transportation Driver Relationship Specialty Start Date End Date Kiersten Fitch MD [address] [place] [address] PCP - General Family Practice 02/16/24 [facility] [address] [address] 03/18/22
--- OUTSIDE RECORDS SUMMARY | 2024-08-24 19:20 | XMS_ITS | Encounter Summary ---
Author Organization [facility] Address [address] [place] [address] Care Team Providers Care Mixing House Operator Name Role Phone Aravind Decker MD Primary Care Provider [phone]- [phone] Encounter Details Date Type Department Care Team (Late st Contact Info) Description 01/15/2014 Consent for Procedure/Treatme nt LV Surg IP Svc [address] [place] [address] [facility], Provider [facility] INFORMED CONSENT Social History Tobacco Use Types Packs/Day Years Used Date Smoking Tobacco: Former Cigarettes Q uit: 05/02/1965 Alcohol Use Standard Drinks/Week Comments No 0 (1 standard drink = 0.6 oz pur e alcohol) QUIT 14 YEARS AGO Sex and Gender Information Value Date Recorded Sex Assigned at Not on file Legal Sex Male 4:28 AM CDT Gender Identity Not on file Sexual Orientation Not on file documented as of this encounter Plan of Treatment Not on file documented as of this encounter Visit Diagnoses Not on filedocumented in this encounter Care Teams Mixing House Operator Relationship Specialty Start Date End Date Aravind Decker MD [address] [place] [address] PCP - General Family Practice 01/14/14 documented as of this encounter
--- OUTSIDE RECORDS SUMMARY | 2024-08-24 19:20 | XMS_ITS | Clinical Summary ---
Author Organization [facility] Address [address] [place] [address] Care Team Providers Care Printed Circuit Boards Inspector Name Role Phone Aravind Decker MD Primary Care Provider [phone]- [phone] Source Comments You are receiving this document [...] for each transition of care or referral. [facility] Code Allergies Active Allergy Reactions Criticality Noted Date Comments Meperidine Angioedema High 01/11/2014 GIVEN WITH PHENERGAN Morphine Gastrointestinal 01/11/2014 VOMITING WITH ANY MOVEMENT Dronedarone Other, see comments 01/11/2014 SHORT OF BREATH, NERVOUS, TWITCHY Phenothiazines Angioedema High 01/11/2014 GIVEN WITH DEMEROL Medications dofetilide (TIKOSYN) 250 MCG capsuleIndication s:Atrial Fibrillation Take 250 mcg by mouth every 12 hours. Indications: Atrial Fibrillation Activ e ATENolol (AKA TENORMIN) 25 MG tabletIndications :Hypertension,Sup raventricular Cardiac Arrhythmia Take 25 mg by mouth [...] Saturdays Active sildenafil (AKA VIAGRA) 50 MG tabletIndications :Erectile Dysfunction Take 50 mg by mouth. As [...] two times a day with meals. Active oxyCODONE-acetami nophen (AKA PERCOCET) 5-325 MG tablet Take 1-2 Tabs by mouth every 4 hours as needed for Pain. 65 Tab 0 01/18/20 14 Active Active Problems No known active problems Immunizations Immunization Administration Dates Next Due Influenza, Unspecified Formulation [...] Comments Blood Pressure 110/57 04/20/2021 5:22 AM CANCER PROGRAM CONSULTANT Pulse 96 04/20/2021 5:22 AM CANCER PROGRAM CONSULTANT Temperature 36.9 C (98.5 F) 04/20/2021 2:42 AM CANCER PROGRAM CONSULTANT Respiratory Rate 24 04/20/2021 5:22 AM CANCER PROGRAM CONSULTANT Oxygen Saturation 96% 04/20/2021 5:22 AM CANCER PROGRAM CONSULTANT Inhaled Oxygen Concentration - - Weight 73.5 kg (162 lb) 04/20/2021 2:42 AM CANCER PROGRAM CONSULTANT Height 182.9 cm (6') 04/20/2021 2:42 AM CANCER PROGRAM CONSULTANT Body Mass Index 21.97 04/20/2021 2:42 AM CANCER PROGRAM CONSULTANT Plan of Treatment Health Maintenance Due Date Last Done Comments Hep C Screening (Preventive Services) 1945 Medicare Annual Wellness Visit 1945 Zoster/Shingles Vaccine (1 of 2) 01/13/1996 RSV Vaccine (1 - 1-dose 75+ series) 2021 COVID-19 Vaccine (2 - season) 2024 06/24/2020 Influenza Vaccine (#1) 2024 9, 02/16/2018, 02/16/2018, Additional history exists DTaP/Tdap/Td Vaccine (2 - Tdap) 06/16/2028 06/16/2018, 01/30/2005, 05/06/2004 Pneumococcal Vaccine 50+ Yrs Completed , 04/05/2013, 06/02/2012 HepA Vaccine Aged Out No longer eligi ble based on patient's age to complete this topic HepB Vaccine Aged Out No longer eligi ble based on patient's age to complete this topic Hib Vaccine Aged Out No longer eligi ble based on patient's age to complete this topic IPV (Polio) Vaccine Aged Out No longe r eligible based on patient's age to complete this topic MCV4 Vaccine Aged Out No longer eligi ble based on patient's age to complete this topic Meningococcal B Vaccine Aged Out No l onger eligible based on patient's age to complete this topic Medical Devices Implanted Type Area Heating And Ventilating Tender Device Identifier Shelf Expiration Date Model / Serial / Lot Comp Patella Gen Ii 41mm - [id number] Implanted:Qty : 1 on 01/15/2014 by Vini Duffy MD at [facility] DEVICE Right: [employer] 07/20/2023 [id number] / NA / [id number] Comp Fem Legion Rt Sz8 - [id number] Implanted:Qty : 1 on 01/15/2014 by Vini Duffy MD at [facility] DEVICE Right: [employer] 08/20/2023 [id number] / NA / [id number] Cement Bone Palacos R - [id number] Implanted:Qty : 1 on 01/15/2014 by Vini Duffy MD at [facility] DEVICE Right: [employer] 07/19/2018 [id number] / NA / [id number] Insert Legion Hiflex Cr 7-8 13 - [id number] Implanted:Qty : 1 on 01/15/2014 by Vini Duffy MD at [facility] DEVICE Right: [employer] 05/21/2021 [id number] / NA / [id number] Baseplt Tib Metl Gensis Rt Sz8 - [id number] Implanted:Qty : 1 on 01/15/2014 by Vini Duffy MD at [facility] DEVICE Right: [employer] 04/30/2023 [id number] / NA / [id number] Insurance [facility]ICARE [facility] Advance Directives * Full Code (Latest Code Status on File) Date Activated Date Inactivated Comments 01/15/2014 4:23 PM 01/17/2014 3:47 PM * Full Code Date Activated Date Inactivated Comments 01/15/2014 11:27 AM 01/15/2014 4:23 PM Care Teams Printed Circuit Boards Inspector Relationship Specialty Start Date End Date Aravind Decker MD [address] [place] [address] PCP - General Family Practice 01/14/14
[2024-08-24 19:21] VITALS: BP 126/77; PULSE 88; RESP 18; TEMP 36.4; O2SAT 97; BMI 25.8
--- NOTE | 2024-08-24 19:28 | ED.DENTAL ---
HPI - Dental/Oral General Time Seen by Provider: 19:28 Date Seen: 08/24/24 Chief complaint: Dental/Oral/Mouth Injury/Pain Stated complaint: Mouth bleeding Time Seen by Provider: 08/24/24 19:28 Source: patient and RN notes reviewed Mode of arrival: ambulatory Limitations: no limitations History of Present Illness HPI Narrative: This 79-year-old male is coming into the ER with bleeding from a dental site. Had a tooth pulled yesterday. He is on anticoagulation with Coumadin for atrial fibrillation. He feels he has been in sinus rhythm mostly lately. He was bleeding a lot from the site yesterday, did not take his Coumadin yesterday, had his INR checked before the procedure and it was 1.9. He did not hold his Coumadin for the dental procedure. He has not taken his Coumadin today at either as he had ongoing bleeding. He was at the dentist today and the dentist did stitch this site. He has felt a little lightheaded but no chest pain, no other presyncope symptoms. He is on a antiarrhythmic. Patient does note that the ragged he has in his mouth really does not have that much blood on it, feels like the bleeding may have settled down a bit. Related Data Home Medications ?Medication ?Instructions ?Recorded ?Confirmed dofetilide 250 mcg capsule 250 mcg PO DAILY 02/20/22 08/10/23 metoprolol succinate 25 mg 25 mg PO DAILY 02/20/22 08/10/23 tablet,extended release 24 hr pregabalin 100 mg capsule 100 mg PO TID 02/20/22 08/10/23 pregabalin 25 mg capsule mg 02/20/22 sennosides 8.6 mg tablet (senna) mg 02/20/22 sumatriptan succinate 50 mg tablet mg PO 02/20/22 tramadol 50 mg tablet mg 02/20/22 warfarin 1 mg tablet mg 02/20/22 furosemide 20 mg tablet 20 mg PO QAM 08/10/23 08/10/23 pregabalin 50 mg capsule mg PO 08/10/23 Previous Rx's ?Medication ?Instructions ?Recorded doxycycline hyclate 100 mg capsule 100 mg PO BID 10 days #20 caps 01/16/24 Allergies Allergy/AdvReac Type Severity Reaction Status Date / Time Phenothiazines Allergy Severe Angioedema Verified 01/16/24 20:39 dronedarone (From Multaq) Allergy Verified 01/16/24 20:39 meperidine (From Demerol) Allergy Verified 01/16/24 20:39 morphine Allergy Verified 01/16/24 20:39 promethazine (From Phenergan) Allergy Verified 01/16/24 20:39 Review of Systems Narrative: As per HPI. PFSH PFS Medical History Hypertension ?I10 - Essential (primary) hypertension (ICD-10) Degenerative joint disease ?M19.90 - Unspecified osteoarthritis, unspecified site (ICD-10) Anemia ?D64.9 - Anemia, unspecified (ICD-10) Restless leg ?G25.81 - Restless legs syndrome (ICD-10) Anxiety ?F41.9 - Anxiety disorder, unspecified (ICD-10) Paroxysmal atrial fibrillation ?I48.0 - Paroxysmal atrial fibrillation (ICD-10) Surgical History History of arthroscopic knee surgery ?Z98.890 - Other specified postprocedural states (ICD-10) History of back surgery ?Z98.890 - Other specified postprocedural states (ICD-10) History of cardiac radiofrequency ablation ?Z98.890 - Other specified postprocedural states (ICD-10) History of appendectomy ?Z90.49 - Acquired absence of other specified parts of digestive tract (ICD-10) History of cholecystectomy ?Z90.49 - Acquired absence of other specified parts of digestive tract (ICD-10) S/P AAA repair ?Z98.890 - Other specified postprocedural states (ICD-10) ?Z86.79 - Personal history of other diseases of the circulatory system (ICD-10) Social History Smoking Status: Never smoker Do you use any of these nicotine containing products: None Second hand tobacco smoke exposure: No How often do you have a drink containing alcohol: never How often do you have six or more drinks on one occasion: Never AUDIT-C Alcohol total score: 0 Non-prescribed substance use: denies use service: No Exam Const: Vital Signs, click to edit/add: Vital Signs - 24 hr 08/24/24 19:21 Temperature 97.6 F Pulse Rate [Left P ulse Oximeter] 88 Respiratory Rate 18 Blood Pressure [Ri ght Upper Arm] 126/77 Pulse Oximetry 97 Oxygen Delivery Me thod Room Air This very pleasant 79-year-old male is alert, interactive, no apparent distress. He is holding a black wash rag in his mouth. This is removed, oropharynx has sutures on the upper left jaw in the dental cavity, there seems to be some clot but no significant active bleeding noted. I do note some blood throughout the oral cavity that does appear fracture. He has got dried blood on the front of his T-shirt. Sclera clear, conjugate gaze. Symmetrical facial function. Lungs are clear, good air entry, no wheeze or crackles, no tachypnea, no accessory muscle use. CV regular rate and rhythm, do not hear any murmur. He certainly sounds very regular at this time, normal S1-S2. Abdomen is soft, nontender, nondistended. Patient is ambulatory into the ED of his own accord. Documenting provider has reviewed patient's vital signs: yes Course Course ED Course: Will check patient's CBC to make sure he is not significantly anemic, will see where his INR is. He sounds to be in sinus rhythm and will have them get an EKG to ensure this. He feels like he can tell when he is in atrial fibrillation. He may need to withhold his anticoagulant for few days to give this time to stop bleeding. The dentist has already stitch this so unfortunately next step would be to hold his anticoagulant. We will try to confirm and see if he is in sinus rhythm at this time. Reevaluation(s) Time of Reevaluation #1: 20:57 Reevaluation #1: Have reviewed with patient that his hemoglobin is good, INR is 1.68. The initial gauze I placed just has a small tiny about pea-sized amount of blood, not soaking in to the gauze. It is just superficial on the top of the gauze, 1st layer. He is in sinus rhythm, reauscultation done and still is very regular. We will be allowing him to go home. Will have him hold his anticoagulation for the next 48 hours, resume on Ernesto. If he does feel like he is going back into atrial fibrillation, will need to restart his anticoagulation. Discussed compression with gauze. We discussed soft foods. We did discuss theoretical stroke Brady off anticoagulation from the atrial fibrillation, he is in sinus rhythm right now but I cannot guarantee that he does not go into this intermittently. I do think though that to stop the level of bleeding he was having he will need to hold his anticoagulant. This is already been stitched, I really have nothing further to offer him other than holding his blood thinner. Bleeding has seemed to settle down here in hopefully will continue to maintain this status. Vital Signs Vital signs: Initial Vital Signs Temperature 97.6 F 08/24/24 19:21 Temperature Source Temporal Artery Scan 08/24/24 19:21 Pulse Rate 88 08/24/24 19:21 Pulse Rhythm Regular 08/24/24 19:21 Respiratory Rate 18 08/24/24 19:21 Blood Pressure 126/77 08/24/24 19:21 Blood Pressure Mean 93 08/24/24 19:21 Blood Pressure Position Sitting 08/24/24 19:21 Pulse Oximetry 97 08/24/24 19:21 Oxygen Delivery Method Room Air 08/24/24 19:21 Vital Signs Temperature 97.6 F 08/24/24 19:21 Pulse Rate 88 08/24/24 19:21 Respiratory Rate 18 08/24/24 19:21 Blood Pressure 126/77 08/24/24 19:21 Pulse Oximetry 97 08/24/24 19:21 Oxygen Delivery Method Room Air 08/24/24 19:21 Temperature 97.6 F 08/24/24 19:21 Pulse Rate 88 08/24/24 19:21 Respiratory Rate 18 08/24/24 19:21 Blood Pressure 126/77 08/24/24 19:21 Pulse Oximetry 97 08/24/24 19:21 Oxygen Delivery Method Room Air 08/24/24 19:21 MDM - Dental/Oral Lab Data Attestation: I reviewed the patient's lab results. Labs: Lab Results 08/24/24 Range/Units 19:45 WBC 9.34 (4.50-11.00) K/uL RBC 4.46 (4.30-5.90) m/uL Hgb 13.8 (13.5-17.5) gm/dL Hct 42.2 (37.0-53.0) % MCV 95 (80-100) fL MCH 31 (26-34) pg MCHC 33 (32-36) gm/dL RDW Coeff of Phyllis 12.9 (11.5-15.5) % Plt Count 157 (140-440) K/uL Neut % (Auto) 79.8 H (42.0-72.0) % Lymph % (Auto) 11.6 L (20-44) % [place] % (Auto) 7.4 (0.0-11.0) % Eos % (Auto) 0.9 (0.0-7.0) % Baso % (Auto) 0.2 (0.0-3.0) % Neut # (Auto) 7.50 H (1.7-7.0) K/uL Lymph # (Auto) 1.10 (0.90-2.90) K/uL [place] # (Auto) 0.70 (0.00-0.90) K/UL Eos # (Auto) 0.08 (0.00-0.50) K/uL Baso # (Auto) 0.02 (0.00-0.30) K/uL Abs Immat Gran (auto) 0.01 (0.00-0.30) K/uL Imm/Tot Granulo (auto) 0.1 % INR 1.68 H (0.91-1.10) ECG Data Attestation: I personally reviewed and interpreted this ECG as follows: (Normal sinus rhythm with sinus arrhythmia, 81 beats per minute. No active ischemic change, no infarct. Some artifact in V2.) ECG interpretation date: 08/24/24 ECG interpretation time: 19:39 Discharge Plan Discharge Clinical Impression: Postoperative bleeding from mouth, Chronic anticoagulation Patient Disposition: Home, Self-Care Condition: Stable Additional Instructions: Hold Coumadin until Tuesday. Can use packing in that area if there is any rebleeding. Soft foods to help prevent any irritation of this site. Follow the dental or oral surgeon's recommendations for care otherwise. If there are further concerns, further issues, return for further evaluation. Activity Level: Activity as Tolerated Prescriptions: No Action furosemide 20 mg tablet 20 mg PO QAM pregabalin 50 mg capsule PO doxycycline hyclate 100 mg capsule 100 mg PO BID 10 Days Qty: 20 0RF sennosides [senna] 8.6 mg tablet Patient Comments: TAKE 1 TABLET BY MOUTH 2 TIMES DAILY IF NEEDED FOR CONSTIPATION. dofetilide 250 mcg capsule 250 mcg PO DAILY sumatriptan succinate 50 mg tablet PO Patient Comments: TAKE 1 TABLET (50 MG) BY MOUTH EVERY 2 HOURS IF NEEDED FOR MIGRAINE. GIVE AT MINIMUM 2HRS APART. MAX DOSE: 200MG PER 24HRS. tramadol 50 mg tablet Patient Comments: take 1 tab qhs as needed for RLS rescue therapy. Not to exceed more than 2 nights/week metoprolol succinate 25 mg tablet extended release 24 hr 25 mg PO DAILY warfarin 1 mg tablet Patient Comments: TAKE BY MOUTH 2 MG (1 MG X 2) EVERY SUN; 3 MG (1 MG X 3) ALL OTHER DAYS OR DIRECTED pregabalin 25 mg capsule Patient Comments: TAKE 1 CAP 3 TIMES PER DAILY. INCREASE TO 2 CAPS NIGHTTIME DOSING IF NEEDED AFTER 1 WEEK (TOTAL DOSING 125 MG AM AND AFTERNOON 150MG AT BEDTIME) pregabalin 100 mg capsule 100 mg PO TID Patient Comments: TAKE 1 CAPSULE BY MOUTH THREE TIMES A DAY Follow Up/Referrals: Kiersten Fitch MD [Primary Care Provider] - Stand Alone Forms: [facility] Info Instructions
--- OUTSIDE RECORDS SUMMARY | 2024-08-24 19:53 | XMS_ITS | Clinical Summary ---
Author Organization [facility] Address [address] [place] [address] Care Team Providers Care Lawn Care Worker Name Role Phone Aravind Decker MD Primary Care Provider [phone] Source Comments You are receiving this document [...] for each transition of care or referral. [facility] Active Allergy Reactions Criticality Noted Date [...] Comments Blood Pressure 110/57 04/20/2021 5:22 AM SOFTWARE DEVELOPER Pulse 96 04/20/2021 5:22 AM SOFTWARE DEVELOPER Temperature 36.9 C (98.5 F) 04/20/2021 2:42 AM SOFTWARE DEVELOPER Respiratory Rate 24 04/20/2021 5:22 AM SOFTWARE DEVELOPER Oxygen Saturation 96% 04/20/2021 5:22 AM SOFTWARE DEVELOPER Inhaled Oxygen Concentration - - Weight 73.5 kg (162 lb) 04/20/2021 2:42 AM SOFTWARE DEVELOPER Height 182.9 cm (6') 04/20/2021 2:42 AM SOFTWARE DEVELOPER Body Mass Index 21.97 04/20/2021 2:42 AM SOFTWARE DEVELOPER Plan of Treatment Health Maintenance Due Date [...] this topic Medical Devices Implanted Type Area School Standards Coach Device Identifier Shelf Expiration Date Model / Serial / Lot Comp Patella Gen Ii 41mm - [id number] Implanted:Qty : 1 on 01/15/2014 by Vini Duffy MD at [facility] DEVICE Right: [employer] 07/20/2023 [id number] / NA / [id number] Comp Fem Legion Rt Sz8 - [id number] Implanted:Qty : 1 on 01/15/2014 by Vini Duffy MD at [facility] DEVICE Right: [employer] 08/20/2023 [id number] / NA / [id number] Cement Bone Palacos R - [id number] Implanted:Qty : 1 on 01/15/2014 by Vini Duffy MD at [facility] DEVICE Right: [employer] 07/19/2018 [id number] / NA / [id number] Insert Legion Hiflex Cr 7-8 13 - [id number] Implanted:Qty : 1 on 01/15/2014 by Vini Duffy MD at [facility] DEVICE Right: [employer] 05/21/2021 [id number] / NA / [id number] Baseplt Tib Metl Gensis Rt Sz8 - [id number] Implanted:Qty : 1 on 01/15/2014 by Vini Duffy MD at [facility] DEVICE Right: [employer] 04/30/2023 [id number] / NA / [id number] Insurance MEDICARE [facility] MEDICARE [facility] Advance Directives * Full Code (Latest Code Status on File) Date Activated Date Inactivated Comments 01/15/2014 4:23 PM 01/17/2014 3:47 PM * Full Code Date Activated Date Inactivated Comments 01/15/2014 11:27 AM 01/15/2014 4:23 PM Care Teams Lawn Care Worker Relationship Specialty Start Date End Date Aravind Decker MD [address] [place] [address] PCP - General Family Practice 01/14/14
--- OUTSIDE RECORDS SUMMARY | 2024-08-24 19:53 | XMS_ITS | Clinical Summary ---
Author Organization [facility] Address [address] [place] [address] Care Team Providers Care Record Producer Name Role Phone Elsewhere, Pcp Primary Care Provider Unavailabl e Source Comments Patient records contain information from all sites at [facility]. For routine questions regarding patient records, call [phone] during business hours, M-F 8:00 AM - 5:00 PM Central Time. Record requests for emergency care only can be directed to [phone] at any time.[facility] Allergies Active Allergy Reactions Criticality Noted Date [...] How often do you attend chur or christian services? Patient declined 08/31/2021 Do you belong to any clubs o r organizations such as christianity groups, unions, fraternal or athletic groups, or [...] Answer Date Recorded PHQ-2 Score 0 08/31/2021 [facility] - Occupational Stress [...] months, how many places have you lived? [id number] 08/31/2021 In the last 12 months, was t here a time when you did not have a steady place to sleep or slept in a [place] facility (including now)? No 08/31/2021 Nutrition Answer Date [...] on file Legal Sex Male 5:19 AM SIGNAL REPAIRER Gender Identity Not on file Sexual Orientation Not on file Last Filed Vital Signs Vital Sign Reading Time Taken Comments Blood Pressure 118/82 03/29/2023 3:59 PM SIGNAL REPAIRER Pulse 82 03/29/2023 2:54 PM SIGNAL REPAIRER Temperature 36.5 C (97.7 F) 03/29/2023 3:59 PM SIGNAL REPAIRER Respiratory Rate 18 03/29/2023 3:59 PM SIGNAL REPAIRER Oxygen Saturation 100% 03/29/2023 3:59 PM SIGNAL REPAIRER Inhaled Oxygen Concentration - - Weight 73.5 kg (162 lb 0.6 oz) 08/31/2021 7:42 A M CDT Height 182.9 cm (6') 03/29/2023 4:10 PM SIGNAL REPAIRER Body Mass Index 21.71 08/31/2021 7:42 AM [...] [address] [place] [phone] [employer] MED[employer] Care Teams Record Producer Relationship Specialty Start Date End Date Elsewhere, Pcp PCP - General Internal Medicine 08/31/21
--- OUTSIDE RECORDS SUMMARY | 2024-08-24 19:53 | XMS_ITS | Encounter Summary ---
Author Organization [facility] Address [address] [place] [address] Care Team Providers Care Medical Lab Assistant Name Role Phone Aravind Decker MD Primary Care Provider [phone] Encounter Details Date Type Department Care Team (Late st Contact Info) Description 01/15/2014 Consent for Procedure/Treatme nt LV Surg IP Svc [address] [place] [address] [facility], Provider [facility] INFORMED CONSENT Social History Tobacco [...] on filedocumented in this encounter Care Teams Medical Lab Assistant Relationship Specialty Start Date End Date Aravind Decker MD [address] [place] [address] PCP - General Family Practice 01/14/14 documented as of this encounter
--- OUTSIDE RECORDS SUMMARY | 2024-08-24 19:53 | XMS_ITS | Clinical Summary ---
Author Organization [facility] Address [address] , [address] [place] [address] Phone Care Team Providers Care Lease Out Worker Name Role Phone 7CareTeamNurse-MA, 7CareTeamNurse-MA Unavailable Unavailable Conditions or Problems Problem Name Problem Code Onset Date Status Entry Date Provider Comment Standard Description Annotate Therapeutic drug monitoring 656601069 (SNOMED CT) Active Flakita Tuesday Medication monitoring Iron deficiency 76329314 (SNOMED CT) Active Flakita Tuesday Iron deficiency Anxiety disorder 898547745 (SNOMED CT) Active Madison Ferrera MD Anxiety disorder Restless leg syndrome 94852235 (SNOMED CT) Active Madison Ferrera MD Restless legs Medications Medication Instructions Start Date Stop Date Generic Name NDC Provider PREGABALIN 50 MG CAPS TAKE ONE CAPSULE BY MOUTH THREE TIMES A DAY DIRECTED TAKE WITH 100MG CAP TOTAL DOSE 150-175 TO 200MG pregabalin [id number] Alyx Parrish PA-C PREGABALIN 25 MG CAPS TAKE 1 CAPSULE BY MOUTH THREE TIMES A DAY NEEDED FOR RESTLESS LEGS pregabalin [id number] Alyx Parrish PA-C PREGABALIN 50 MG CAPS TAKE 1 CAPSULE BY MOUTH TWO TIMES A DAY AND 1-2 CAPSULES BY MOUTH AT BEDTIME. pregabalin [id number] Alyx Hernandezgood PA-C PREGABALIN 25 MG CAPS Take 1-2 capsule by mouth every night at bedtime as directed (total qhs dose 175-200mg) pregabalin [id number] Alyx ROSAS-Devon PREGABALIN 50 MG CAPS Take 1 capsule by mouth three times a day as directed Take with 100mg cap (total dose 150-150-175 to 200mg) pregabalin [id number] Alyx ROSAS-C PREGABALIN 50 MG CAPS TAKE 1 CAPSULE BY MOUTH TWICE A DAY (MORNING AND EVENING) AND TAKE 1-2 CAPSULES BY MOUTH AT BEDTIME. pregabalin [id number] Flakita Davisday PREGABALIN 50 MG CAPS TAKE 1 CAPSULE BY MOUTH TWO TIMES A DAY AND 1-2 CAPSULES BY MOUTH AT BEDTIME. pregabalin [id number] Alyx ROSAS-C PREGABALIN 50 MG CAPS TAKE 1 CAPSULE BY MOUTH TWO TIMES A DAY (MORNING & EVENING). TAKE 1-2 CAPSULES BY MOUTH AT BEDTIME pregabalin [id number] Flakita Tuesday PREGABALIN 50 MG CAPS Take 1 capsule by mouth twice a day (MORNING AND EVENING) AND TAKE 1-2 CAPSULES BY MOUTH AT BEDTIME. pregabalin [id number] Flakita Tuesday PREGABALIN 25 MG CAPS Take 1 capsule by mouth three times a day as needed for restless legs pregabalin [id number] Flakita Tuesday PREGABALIN 25 MG CAPS TAKE 1 CAPSULE BY MOUTH THREE TIMES A DAY NEEDED FOR RESTLESS LEGS pregabalin [id number] Alyx ROSAS-C PREGABALIN 50 MG CAPS TAKE 1 CAPSULE BY MOUTH TWO TIMES A DAY (MORNING AND EVENING). TAKE 1-2 CAPSULES AT BEDTIME pregabalin [id number] Flakita Davisday PREGABALIN 100 MG CAPS TAKE 1 CAPSULE BY MOUTH THREE TIMES A DAY pregabalin [id number] Alyx ROSAS-C PREGABALIN 50 MG CAPS TAKE 1 CAPSULE BY MOUTH TWO TIMES A DAY (MORNING & EVENING). TAKE 1-2 CAPSULES BY MOUTH AT BEDTIME pregabalin [id number] Alyx PARSONC PREGABALIN 100 MG CAPS TAKE 1 CAPSULE BY MOUTH THREE TIMES A DAY pregabalin [id number] Alyx PARSONC FLECAINIDE ACETATE 100 MG TABS flecainide [id number] Alyx ROSAS-C ATENOLOL 50 MG TABS atenolol [id number] Alyx PARSONC FERROUS SULFATE 325 (65 Fe) MG TBEC 1 tablet twice a day ferrous sulfate 35582375145 Alyx PARSONC TRAMADOL HCL (ER BIPHASIC) 100 MG [id number] tramadol [id number] Alyx PARSONC DILTIAZEM HCL 30 MG TABS diltiazem hcl 05217854982 Alyx PARSONC TOPIRAMATE 25 MG TABS topiramate 01706724556 Alyx PARSONC LORAZEPAM 1 MG TABS lorazepam 61042326065 Alyx PARSONC tekusin tekusin Alyx PARSONC PREGABALIN 25 MG CAPS Take 1 capsule by mouth three times a day as needed for restless legs pregabalin [id number] Alyx PARSONC PREGABALIN 50 MG CAPS TAKE 1 CAPSULE IN THE AM AND AFTERNOON AND 1-2 CAPSULES AT BEDTIME (TOTAL DOSING 150 MG AM AND AFTERNOON AND 150-200 MG AT BEDTIME) pregabalin [id number] deuce Tuesday PREGABALIN 50 MG CAPS TAKE 1 CAPSULE BY MOUTH TWO TIMES A DAY (MORNING AND EVENING). TAKE 1-2 CAPSULES AT BEDTIME pregabalin [id number] Flakita Tuesday FLECAINIDE ACETATE 100 MG TABS flecainide [id number] Flakita Tuesday PREGABALIN 25 MG CAPS take 1 cap 3 times per daily. Increase to 2 caps nighttime dosing if needed after 1 week (total dosing 125 mg AM and afternoon and 150 mg qhs) pregabalin [id number] Flakita Tuesday PREGABALIN 50 MG CAPS TAKE 1 CAPSULE IN THE AM AND AFTERNOON AND 1-2 CAPSULES AT BEDTIME (TOTAL DOSING 150 MG AM AND AFTERNOON AND 150-200 MG AT BEDTIME) pregabalin [id number] Flakita Tuesday PREGABALIN 100 MG CAPS take 1 cap 3 times per day pregabalin [id number] Flakita Davisday PREGABALIN 100 MG CAPS TAKE 1 CAPSULE BY MOUTH THREE TIMES A DAY pregabalin [id number] Flakita Tuesday TRAMADOL HCL 50 MG TABS tramadol [id number] Flakita Tuesday PREGABALIN 100 MG CAPS take 1 cap 3 times per day pregabalin [id number] Flakita Tuesday PREGABALIN 25 MG CAPS take 1 cap 3 times per daily. Increase to 2 caps nighttime dosing if needed after 1 week (total dosing 125 mg AM and afternoon and 150 mg qhs) pregabalin [id number] deuce Tuesday TRAMADOL HCL 50 MG TABS take 1 tab qhs as needed for RLS rescue therapy. Not to exceed more than 2 nights/week tramadol 50657891172 Flakita Tuesday TRAMADOL HCL 50 MG TABS tramadol [id number] deuce Tuesday DOFETILIDE 250 MCG CAPS dofetilide 48328864304 Flakita Davisday SUMATRIPTAN SUCCINATE 50 MG TABS TAKE 1 TABLET (50 MG) BY MOUTH EVERY 2 HOURS IF NEEDED FOR MIGRAINE. GIVE AT MINIMUM 2HRS APART. MAX DOSE: 200MG PER 24HRS. sumatriptan succinate [id number] deuce Tuesday OMRON 3 SERIES BP MONITOR D USE DIRECTED OMRON 3 SERIES B P MONITOR D Flakita Tuesday FERROUS GLUCONATE 324 (38 Fe) MG TABS TAKE 1 TABLET BY MOUTH ONCE DAILY WITH A MEAL. ferrous gluconate [id number] deuce Tuesday SENNA 8.6 MG TABS TAKE 1 TABLET BY MOUTH 2 TIMES DAILY IF NEEDED FOR CONSTIPATION. sennosides [id number] Flakita Tuesday MIRTAZAPINE 7.5 MG TABS mirtazapine 71542016955 Flakita Tuesday METOPROLOL TARTRATE 25 MG TABS metoprolol tartrate 29750229815 Flakita Tuesday FUROSEMIDE 40 MG TABS furosemide 34585632035 Flakita Tuesday WARFARIN SODIUM 1 MG TABS warfarin 69732997798 deuce Tuesday METOPROLOL SUCCINATE ER 25 MG [id number] metoprolol succinate [id number] deuce Tuesday GABAPENTIN 600 MG TABS 1 tab po tid for restless legs syndrome. GABAPENTIN [id number] Madison Ferrera MD GABAPENTIN 600 MG TABS 1 tab po tid for restless legs syndrome. increaes per titration schedule GABAPENTIN [id number] Madison Ferrera MD TRAMADOL HCL (ER BIPHASIC) 100 MG [id number] TRAMADOL HCL 16505188214 Madison Ferrera MD ATENOLOL TABS ATENOLOL TABS 05073037811 Madison Ferrera MD DILTIAZEM HCL TABS DILTIAZEM HCL TABS 40518966457 Madison Ferrera MD COUMADIN TABLET WARFARIN SODIUM TABS 24958510078 Madison Ferrera MD MIRAPEX 0.5 MG ORAL TABLET PRAMIPEXOLE DIHYDROCHLORIDE 04949238860 Madison Ferrera MD GABAPENTIN 300 MG CAPS 900mg po qhs for RLS GABAPENTIN 75168389085 Madison Ferrera MD FERROUS SULFATE 325 (65 Fe) MG TBEC 1 tab twice a day for restless legs syndrome FERROUS SULFATE 52698086870 Madison Ferrera MD Medications Administered No information available. 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-[id number] Documentation of current medicatio ns ORDERS Patient Instructions ORDERS Patient Instructions ORDERS Patient Instructions [facility]-[id number] Documentation of current medicatio ns ORDERS Ferritin Serum ORDERS Follow up ORDERS Drug Monitor 8 (ETOH/AMP/BZO/Buprenepherine/GIOVANA/Heroin/THC /MDMA/OPI/OXY) Urine ORDERS Drug Monitor Tramadol Librado Urine ORDERS Ferritin Serum ORDERS Patient Instructions ORDERS Follow up Sleep JOSEPH ORDERS Instructions for Staff 01/13 ORDERS Ferritin Serum ORDERS Iron & Total Iron-binding Capacity (TIBC) ORDERS Follow up in clinic [facility]-[id number] Other Test [facility]-[id number] Documentation of current medicatio ns ORDERS Patient Instructions ORDERS Follow up [facility]-[id number] Documentation of current medicatio ns [facility]-[id number] Documentation of current medicatio ns [facility]-[id number] Documentation of current medicatio ns [facility]-[id number] Documentation of current medicatio ns [facility]-[id number] Documentation of current medicatio ns Vital Signs [...]
--- OUTSIDE RECORDS SUMMARY | 2024-08-24 19:53 | XMS_ITS | Clinical Summary ---
Author Organization [employer] [facility] Address [address] [place] [id number] Care Team Providers Care Cutter Head Sharpener Name Role Phone [facility] Care, Kvng Unavailable Kiersten Fitch MD Primary Care Provider Allergies [...] (current) use of high-risk medication Inhale 1 [place] into affected nostril(s) each time if needed [...] Vascular Prosthesis. Size: 34 mm straight. REF: [id number]. LOT: [id number]. SN: [id number]. EXP: 08/30/2023. Implanted by Dr. Saud Carter [...] Description 08/23/2024 9:45 AM CDT Orders [place] [address] [place] [address] Lab, [facility] Lab 08/23/2024 Anticoagulation (warfarin) [facility] [address] [place] [address] 1, [facility]ticoagulation 08/23/2024 Travel 08/16/2024 8:50 AM CDT Office Visit [facility] [address] [facility] [place] [address] Kiersten Fitch MD Foot Problem (Left heel still feels the same sometimes feels better sometimes hurts worse. Still soaking foot a couple times a day in soapy water then applies cream.); Musculoskeletal Problem (Patient states muscles flutter.) 08/16/2024 Anticoagulation (warfarin) [facility] [address] [place] [address] 1, [facility] Anticoagulation 08/16/2024 Travel 08/14/2024 Telephone [facility] [address] [facility] [place] [address] Kiersten Fitch MD Refill Request 08/14/2024 Refill [facility] [address] [place] [address] Kiersten Fitch MD Refill Request (Sumatriptan) 07/18/2024 4:05 PM CDT Office Visit [facility] [place] [address] Kiersten Fitch MD Foot Problem (Left Foot(heel) started getting some pain and thought it was his restless leg stuff but then says there is a sore on his heel but can't see it very well.) 07/18/2024 Travel 07/05/2024 8:25 AM MANAGER OF MARKETING Office Visit [facility] [place] [address] Kiersten Fitch MD Medicare ANNUAL (subsequent) Visit (79 yr/Still sick after 20 days, cough is so bad not sleeping. Says it is the worst cough he has ever had.) 07/05/2024 Orders Only [facility] [address] [address] Renzo Good MD 1 scan: (1-Ord) NFLD-EKG-07/05/24 07/05/2024 Travel 06/28/2024 10:00 AM MANAGER OF MARKETING Office Visit [facility] [address] [place] [address] Kendrick Parikh MD Consult (Zaps all throughout body all the time - stomach discomfort, indigestion, takes 'digest basic' supplement, laxative daily, vegetarian) 06/28/2024 Travel 06/27/2024 Telephone [facility] [address] [address] Renzo Good MD Medication Management (Tikosyn) 06/27/2024 Telephone [facility] [address] [place] [address] Kiersten Fitch MD Prior Authorization (hydrOXYzine HCL (ATARAX) 25 mg tablet - APPROVED 06/30/2024 - 07/04/2025) 06/26/2024 Refill [facility] [address] [address] Renzo Good MD Refill Request (Dofetilide) 06/21/2024 12:10 PM MANAGER OF MARKETING Office Visit [facility] [address] [place] [address] Selina Meza, ELECTRONIC ORGAN MECHANIC Cough 06/21/2024 Travel 06/21/2024 Telephone [facility] [address] [place] [address] Ophelia Urias PA Medication Management (Rx needed ) 06/19/2024 9:45 AM MANAGER OF MARKETING Ancillary Procedure [facility] [address] [place] [address] 06/19/2024 9:05 AM MANAGER OF MARKETING Office Visit [facility] [address] [place] [address] Ophelia Urias PA URI 06/19/2024 Travel 06/14/2024 9:15 AM MANAGER OF MARKETING Office Visit [facility] [address] [place] [address] Kiersten Fitch MD Follow Up (6 week check in); Back Pain (Pain down right side of leg); Anxiety (Would like to see about anxiety meds.) 06/14/2024 Antico[facility]farin) [facility] [address] [place] [phone] 1, [facility] Anticoagulation 06/14/2024 Telephone [facility] [address] [place] [address] Kiersten Fitch MD Anticoagulation (POCT or venous?) 06/14/2024 Travel 06/08/2024 Refill [facility] [address] [place] [address] Kiersten Fitch MD Refill Request (Warfarin) 06/06/2024 Telephone [facility] [address] [facility] [address] [place] [address] Renzo Good MD Results (Coronary CTA) 06/04/2024 Telephone [facility] [address] [place] [address] Kiersten Fitch MD Medication Management 05/30/2024 9:30 AM MANAGER OF MARKETING Ancillary Procedure [facility] [address] [place] [address] Dr [address] [facility] [place] [address] 05/30/2024 Travel 05/29/2024 Telephone [facility] [address] [place] [address] [place] [address] Angelique Parks NP Questions (Patient call re: CT scan prep) from Last 3 Months Immunizations Immunization Administration Dates Next Due COVID-19 vaccine (Mango DSP NTGrand Perfecta 30mcg/0.3mL) PF, MDV 06/24/2020 Influenza RIV4 (Age [...] on file Legal Sex Male 5:22 AM MANAGER OF MARKETING Gender Identity Not on file Sexual Orientation Not on file Obstetrics History Last Filed Vital Signs Vital Sign Reading Time Taken Comments Blood Pressure 108/67 08/16/2024 8:59 AM CDT Pulse 84 08/16/2024 8:59 AM CDT Temperature 36.1 C (96.9 F) 06/21/2024 12:12 PM MANAGER OF MARKETING Respiratory Rate 16 06/21/2024 12:12 PM MANAGER OF MARKETING Oxygen Saturation 99% 08/16/2024 8:59 AM CDT Inhaled Oxygen Concentration - - Weight 86.7 kg (191 lb 3.2 oz) 08/16/2024 8:59 A M CDT Height 180.3 cm (5' 11) 07/05/2024 8:32 AM MANAGER OF MARKETING Body Mass Index 26.67 07/05/2024 8:32 AM MANAGER OF MARKETING Plan of Treatment Upcoming Encounters Date Type Department Care Team (Late st Contact Info) Description 09/13/2024 9:40 AM CDT Office Visit [facility] [address] [facility] [place] [address] Kiersten Fitch MD [address] [place] [address] Health Maintenance Due Date Last Done Comments [...] Completed 06/16/2018 Medical Devices Implanted Type Area Stave Log Cut Off Saw Operator Device Identifier Shelf Expiration Date Model / Serial / Lot Occluder Erma 50mm Atriclip Flex V Exclusion Sys - [id number] Implanted:Qty: 1 on 03/27/2021 by Saud Carter MBBS at [facility] Left: [employer] 10/31/2023 [id number] / / [id number] Description:Implant location : Left atrial appendage Left atrial appendage. AtriCure AtriClip FLEX-V. ERMA Exclusion System. Size: 50. REF: [id number]. LOT: [id number]. EXP: 10/31/2023. Implanted by Dr. Saud Carter on 03/27/2021. Graft Vascular Gelweave 34mm X 30cm Implanted:Qty: 1 on 03/27/2021 by Saud Carter MBBS at [facility] N/A: Aorta Vibby 08/30/2023 [id number] / [id number] Procedures Procedure Name Priority Date/Time Associated Diagnosis Comments PROTIME-INR Routine 08/23/2024 9:39 AM CDT Anticoagulation monitoring, INR range 2-3 Persistent atrial fibrillation (HC) INR,POCT Routine 08/16/2024 9:39 AM CDT Anticoagulation monitoring, INR range 2-3 Persistent atrial fibrillation (HC) EKG 12 LEAD Routine 07/05/2024 1:26 PM MANAGER OF MARKETING Therapeutic drug monitoring BUN Routine 07/05/2024 9:40 AM MANAGER OF MARKETING Therapeutic drug monitoring CREATININE Routine 07/05/2024 9:40 AM MANAGER OF MARKETING Therapeutic drug monitoring POTASSIUM Routine 07/05/2024 9:40 AM MANAGER OF MARKETING Therapeutic drug monitoring CELIAC CASCADE PANEL Routine 06/28/2024 10:49 AM MANAGER OF MARKETING Periumbilical abdominal pain Epigastric pain Constipation, unspecified constipation type XR CHEST 2 VIEWS PA AND LATERAL KARYN 06/19/2024 9:55 AM MANAGER OF MARKETING Influenza-like illness COVID/FLU/RSV PANEL Routine 06/19/2024 9 :14 AM MANAGER OF MARKETING Acute cough INR,POCT Routine 06/14/2024 9:56 AM MANAGER OF MARKETING Anticoagulation monitoring, INR range 2-3 Persistent atrial fibrillation (HC) CT CARDIAC CORONARY ARTERIES CV DUAL READ Routine 05/30/2024 10:34 AM MANAGER OF MARKETING Chronic atrial fibrillation, unspecified (HC) CT CARDIAC CORONARY ARTERIES RAD DUAL READ Routine 05/30/2024 10:34 AM MANAGER OF MARKETING Chronic atrial fibrillation, unspecified (HC) ANTI HCV Routine 08/04/2016 10:05 AM CDT Need for hepatitis C screening test from Last 3 Months or Most Recently Relevant to Health Maintenance Results * (ABNORMAL) PROTIME-INR [89122.0] - Standing Order (08/23/2024 9:39 AM CDT) INR 1.9(H) <1.3 08/23/2024 10:26 AM CDT [facility] PROTIME 21.5(H) 10.6 - 12.4 sec 08/23/2024 10:26 AM CDT [facility] Blood BLOOD SPECIMEN / Unknown [facility] / Unknown 08/23/2024 9:39 AM CDT 08/23/2024 9:39 AM CDT [facility] - 08/23/2024 10:26 AM CDT Therapeutic [...] Kiersten Fitch MD HEMATOLOGY Final R esult [facility] [address] [place], [place] [id number] * (ABNORMAL) INR - POCT [44344.2] - Standing Order (08/16/2024 9:39 AM CDT) Only the most recent of2 resultswithin the time period is included. Pathologist [facility] INR 1.8(H) ratio [facility] Comment: INRs >2.9 may be falsely elevated [...] PROTHROMBIN TIMEP 21.4(H) 10.5 - 13.1 sec [facility] Comment: Point of care fingerstick Prothrombin Time/INR results may vary from venous Prothrombin Time/INR methodologies. Any results exhibiting inconsistency with the patient's clinical status should be repeated using a venous Prothrombin Time/INR method. Blood BLOOD SPECIMEN / Unknown 08/16/2024 9:39 AM CDT 08/16/2024 9:39 AM CDT Kiersten Fitch MD LABORATORY Final R esult Performing Organization Address City/[facility]/ZIP Co de Phone Number [facility] [address] [place] [address], [place] [phone] [facility] [address] [place] [address] * EKG 12 LEAD (07/05/2024 1:26 PM MANAGER OF MARKETING) Renzo Good MD EKG ORD Final Re sult * BUN (07/05/2024 9:40 AM MANAGER OF MARKETING) UREA NITROGEN (BUN) 16 7 - 25 mg/dL [facility] Blood BLOOD SPECIMEN / Unknown 07/05/2024 9:40 AM MANAGER OF MARKETING 07/05/2024 9:41 AM MANAGER OF MARKETING Renzo Good MD CHEMISTRY Final Re sult Performing Organization Address City/[facility] Co de Phone Number [facility] [address] [place] [address], [place] [phone] [facility] [address] [place] [address] * POTASSIUM (07/05/2024 9:40 AM MANAGER OF MARKETING) POTASSIUM 4.5 3.5 - 5.3 mmol/L [facility] Blood BLOOD SPECIMEN / Unknown 07/05/2024 9:40 AM MANAGER OF MARKETING 07/05/2024 9:41 AM MANAGER OF MARKETING Renzo Good MD CHEMISTRY Final Re sult Performing Organization Address [facility] de Phone Number [employer] [employer] [facility] [address] [place] [address], [facility] [address] [place] [address] * CREATININE (07/05/2024 9:40 AM MANAGER OF MARKETING) [facility] CREATININE 0.98 0.70 - 1.28 mg/dL [facility] EGFR 79 > OR = 60 mL/min/1.73 m2 [facility] Blood BLOOD SPECIMEN / Unknown 07/05/2024 9:40 AM MANAGER OF MARKETING 07/05/2024 9:41 AM MANAGER OF MARKETING Renzo Good MD CHEMISTRY Final Re sult Performing Organization Address [facility] de Phone Number [employer] [facility] [address] [place] [address], [facility] [address] [place] [address] * (ABNORMAL) CELIAC CASCADE PANEL (06/28/2024 10:49 AM MANAGER OF MARKETING) [facility] CELIAC DISEASE COMPREHENSIVE PANEL INTERPRETATION [facility] [...] BLOOD SPECIMEN / Unknown 06/28/2024 10:49 AM MANAGER OF MARKETING 06/28/2024 10:50 AM MANAGER OF MARKETING Kendrick Parikh MD SEND OUTS Final Res ult Performing Organization Address City/[facility]/ZIP Co de Phone Number [employer] [facility] [address] [place] [address], [facility] [address] [place] [address] * XR CHEST 2 VIEWS PA AND LATERAL (06/19/2024 9:55 AM MANAGER OF MARKETING) Anatomical Region Laterality Modality CHEST, THORAX, Lung, HEART Compu amarilys Radiography 06/19/2024 10:1 8 AM MANAGER OF MARKETING Impressions 06/19/2024 10:18 AM MANAGER OF MARKETING No evidence of acute cardiopulmonary disease. Dictated by Juan J Stevenson MD @ 06/19/2024 10:18:43 AM (Electronically Signed) Narrative 06/19/2024 10:18 AM MANAGER OF MARKETING For Patients: As a result of the [...] Result * COVID/FLU/RSV PANEL (06/19/2024 9:14 AM MANAGER OF MARKETING) COVID 19 [facility] MOLECULAR Negative Negative 06/19/2024 2:46 PM MANAGER OF MARKETING [facility] Comment:All PCR tests are conklin bject to false negative result due to variability in viral load and collection technique. A negative result does not rule out a SARS-CoV-2 infection. Clinical correlation required. INFLUENZA A PCR Negative 2:46 PM MANAGER OF MARKETING [facility] INFLUENZA B PCR Negative 2:46 PM MANAGER OF MARKETING [facility] Respiratory Syncytial Virus Negative 06/19/2024 2:46 PM MANAGER OF MARKETING [facility] Swab NASOPHARYNGEAL SWAB / Unknown Non-Blood / Unknown 06/19/2024 9:14 AM MANAGER OF MARKETING 06/19/2024 9:37 AM MANAGER OF MARKETING Ophelia ROSAS MICROBIOLOGY Final Result [facility] [address] [place] [address], * CT CARDIAC CORONARY ARTERIES CV DUAL READ (05/30/2024 10:34 AM MANAGER OF MARKETING) Anatomical Region Laterality Modality HEART Computed Tomogra phy 05/30/2024 10:1 5 AM MANAGER OF MARKETING Narrative 05/30/2024 11:42 AM MANAGER OF MARKETING [facility] Cardiac CT Report Name: PO ENGLISH : Scan Date: Accession Number: [id number] Status: Final Electronically signed by Jonathan You [...] mm. Coronary artery plaque quantification (calculated by Misohoni analysis): Total plaque volume is mm3 Total [...] TYPE: Calcium score, Coronary CT Angiography SCANNER CIVIL SERVICE WORKER: [employer]EM[employer] SCANNER MODEL: [employer] DOSE REDUCTION ALGORITHM: Helical with dose modulation [...] PARKS TECHNOLOGIST: Radha Garcia ===== Patient Account [id number] ICD10 Codes I48.20 Report generated by [employer], a product of [employer] Procedure Note Jonathan You MD - 05/30/2024 [facility] Cardiac CT Report Name: PO ENGLISH : Scan Date: Accession Number: [id number] Status: Final Electronically signed by Jonathan You [...] mm. Coronary artery plaque quantification (calculated by [employer], [employer]): Total plaque volume is mm3 Total [...] TYPE: Calcium score, Coronary CT Angiography SCANNER CIVIL SERVICE WORKER: [employer]EM[employer] SCANNER MODEL: [employer] DOSE REDUCTION ALGORITHM: Helical with dose modulation [...] TECHNOLOGIST: Radha Garcia BILLING ===== Patient Account [id number] ICD10 Codes I48.20 Report generated by [employer], a product of [employer] Angelique Parks ELECTRONIC ORGAN MECHANIC CT Final Result * CT CARDIAC CORONARY ARTERIES DUAL READ (05/30/2024 10:34 AM MANAGER OF MARKETING) Anatomical Region Laterality Modality HEART Computed Tomogra phy Impressions 05/31/2024 9:20 AM MANAGER OF MARKETING See separate cardiology report for cardiac findings. Please note that all CT scans at this facility use dose modulation, iterative reconstruction and/or weight-based dosing when appropriate to reduce radiation dose to as low as reasonably achievable. Kalee Menjivar M.D. Diagnostic/Breast Radiologist [email or web address] TKP/sp / Narrative 05/31/2024 9:20 AM MANAGER OF MARKETING For Patients: As a result of the [...] conjunction with the services provided by the [facility] ([facility]). INDICATION: Cardiac over-read. FINDINGS: No central pulmonary emboli seen. Median sternotomy. The visualized lungs demonstrate mild atelectasis. Small hiatal hernia. Angelique Parks ELECTRONIC ORGAN MECHANIC CT Final Result * ANTI HCV (08/04/2016 10:05 AM CDT) HEPATITIS C ANTIBODY Non-Reacti ve Non-Reacti ve 08/04/2016 6:03 PM CDT [facility] Blood BLOOD SPECIMEN / Unknown Venipuncture / Unknown 08/04/2016 10:05 AM CDT 08/04/2016 10:05 AM CDT Narrative [facility] - 08/04/2016 6:03 PM CDT Antibodies to HCV not detected; does not exclude the possibility of exposure to HCV. Aravind Decker MD SEND OUTS Final Result [facility] [address] [place] [address], from Last 3 Months or Most Recently Relevant to Health Maintenance Insurance MEDICARE PART B HB ONLY MEDICARE PART A HB ONLY MEDICA DUAL [employer] [facility] MEDICA CHOICE MEDICARE PART B HB ONLY [id number] [place] [id number] MEDICARE PPS WORKERS COMP [facility] [employer] INS Advance Directives Documents on File Type Date Recorded Patient Technical Support Engineer Expl anation Healthcare Directive 06/30/2023 024 Healthcare [...] Preferences, Provider to review later Care Teams Cutter Head Sharpener Relationship Specialty Start Date End Date Kiersten Fitch MD [address] [place] [address] PCP - General Family Practice 02/16/24 [facility] [address], [place] [address] 03/18/22
[2024-08-24 20:09] LABS: Basophils Absolute Auto 0.02 K/uL (0.00-0.30); Basophils Percent Auto 0.2 % (0.0-3.0); Eosinophils Absolute Auto 0.08 K/uL (0.00-0.50); Eosinophils Percent Auto 0.9 % (0.0-7.0); Hematocrit 42.2 % (37.0-53.0); Hemoglobin* 13.8 gm/dL (13.5-17.5); Immature Granulocytes Abs Auto 0.01 K/uL (0.00-0.30); Immature Granulocytes Pct Auto 0.1 %; Lymphocytes Percent Auto 11.6 % (20-44); Mean Corpuscular HGB Conc 33 gm/dL (32-36); Mean Corpuscular Hemoglobin 31 pg (26-34); Mean Corpuscular Volume 95 fL (80-100); Monocytes Percent Auto 7.4 % (0.0-11.0); Neutrophils Percent Auto 79.8 % (42.0-72.0); Platelet Count* 157 K/uL (140-440); RDW Coefficient of Variation % 12.9 % (11.5-15.5); Red Blood Count 4.46 m/uL (4.30-5.90); White Blood Count* 9.34 K/uL (4.50-11.00)
[2024-08-24 20:13] LABS: Slide Review Reflex No
[2024-08-24 20:32] LABS: INR 1.68 (0.91-1.10); Prothrombin Time 20.8 Seconds
== END 2024-08-24 21:15 | disposition home or self-care (01) ==
PROVIDERS: Emergency Provider Family Medicine; PCP Family Medicine
DX: K91.841 Postprocedural hemorrhage of a digestive system organ or structure following other procedure (principal); Z79.01 Long term (current) use of anticoagulants
CPT/HCPCS: 36415; 85025; 85610; 93005; 99283; 99284